=== PATIENT | female | born 1970 | race Caucasian/White ===

== ENCOUNTER → 2016-03-28 | Outpatient (CLI) | payer OTHER ==
[~2016-03-28] MED LIST: ABIL1TAB5 PO; ASPI81TA85 PO; ATEN100T PO; CLON0.5T PO; CRES40TA PO; FAMO40TA3 PO; INSUDET SC; INSUHUMDS SC; LEVO200T4 PO; LEVO75TA4 PO; LISI-538 PO; LYRI75CA PO; METF1000 PO; NORE0.353 PO; PAXI30TA11 PO; ROCE1INJ4 IV; TRIA37.53 PO; VITA500T53 PO
[2016-03-28 11:26] LABS: INR 0.85
[2016-03-28 11:53] LABS: ALBUMIN 3.3 GM/DL (3.2-5.2); ALBUMIN/GLOBULIN RATIO 0.73 (1.00-1.93); BILIRUBIN,TOTAL 0.3 MG/DL (0.2-1.0); CALCIUM LEVEL 10.1 MG/DL (8.5-10.1); CREATININE FOR GFR 1.4 MG/DL (0.55-1.02); FREE T4 0.93 NG/DL (0.76-1.46); GLOMERULAR FILTRATION RATE 43.5 (>58); POTASSIUM SERUM 4.4 MEQ/L (3.5-5.1); TOTAL PROTEIN 7.8 GM/DL (6.4-8.2)
--- NOTE | 2016-03-29 23:04 | ECGEPIP ---
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
== END ==
LOC: M LAB 10:21
PROVIDERS: ATTEND Nurse Practitioner Family
DX: S42.302P Unspecified fracture of shaft of humerus, left arm, subsequent encounter for fracture with malunion (principal)

== ENCOUNTER → 2016-03-28 | Outpatient (CLI) | payer OTHER ==
[2016-03-28 11:20] LABS: BASO # 0.1 K/mm3 (0.0-0.2); BASO % 0.7 % (0.0-1.0); EOS # 0.3 K/mm3 (0.0-0.50); EOS % 2.5 % (0.0-3.0); LARGE UNSTAINED CELL # 0.2 K/mm3 (0.0-0.4); LARGE UNSTAINED CELL % 1.2 % (0.0-4.0); LYMPH # 3.3 K/mm3 (1.5-4.5); LYMPH % 24.9 % (24.0-44.0); MEAN CORPUSCULAR HEMOGLOBIN 29.2 pg (27.0-33.0); MEAN CORPUSCULAR HGB CONC 33.4 g/dl (32.0-36.5); MEAN CORPUSCULAR VOLUME 87.5 fl (80.0-96.0); MONO # 0.4 K/mm3 (0.0-0.8); MONO % 3.4 % (0.0-5.0); NEUTROPHILS # 8.6 K/mm3 (1.8-7.7); NEUTROPHILS % 67.2 % (36.0-66.0); PLATELET COUNT, AUTOMATED 264 k/mm3 (150-450); RED CELL DISTRIBUTION WIDTH 14.3 % (11.5-14.5); WHITE BLOOD COUNT 12.7 K/mm3 (4.0-10.0)
[2016-03-28 11:30] LABS: CALCIUM LEVEL 10.2 MG/DL (8.5-10.1); CREATININE FOR GFR 1.41 MG/DL (0.55-1.02); GLOMERULAR FILTRATION RATE 43.1 (>58); POTASSIUM SERUM 4.4 MEQ/L (3.5-5.1)
[2016-03-28 11:54] LABS: ERYTHROCYTE SEDIMENTATION RATE 53 mm/hr (0-20)
== END ==
LOC: M LAB 10:29
PROVIDERS: ATTEND Internal Medicine Infectious Disease
DX: M86.122 Other acute osteomyelitis, left humerus (principal)

== ENCOUNTER 2016-04-14 02:31 | Emergency (ER) | payer MEDICAID, OTHER ==
[2016-04-14] MEDS ORDERED: DERMABOND TOPICAL SKIN ADHESIVE As Ordered ONE (05:16)
--- NOTE | 2016-04-14 06:18 | EDDOCDS ---
Physician Documentation [facility] Name: Shandra Gill Age: 45 yrs Sex: Female : 1970 Arrival Date: 04/14/2016 Time: 02:31 Bed 8 Private MD: Rebeca Byrne S Disposition: 04/14/16 05:31 Discharged to Home/Self Care. Impression: Encounter for other postprocedural aftercare. - Condition is Stable. - Medication Reconciliation, Local Pharmacy Hours form. - Follow up: Private Physician; When: As previously arranged. - Problem is new. - Symptoms have improved. Historical: - Allergies: No known drug Allergies; - Home Meds: 1. Abilify 10 mg Oral tab 1 tab once daily 2. aspirin 81 mg Oral chew 1 tab once daily 3. atenolol 100 mg Oral tab once daily 4. clonazepam 0.5 mg Oral tab 1 tab once a day 5. Crestor 40 mg Oral tab 1 tab once daily 6. famotidine 40 mg Oral tab 1 tab once daily 7. Humalog 100 unit/mL Sub-Q soln 35 unit three times a day 8. Klonopin 0.5 mg Oral tab 1 tab once a day 9. Levemir 100 unit/mL subcutaneous soln 135 unit daily 10. levothyroxine 75 mcg Oral cap 1 cap once daily 11. lisinopril 20 mg Oral tab 1 tab once daily 12. metformin 1,000 mg Oral tab 1 tab 2 times per day 13. Paxil 30 mg Oral tab 1 tab once daily 14. triamterene-hydrochlorothiazid 37.5-25 mg Oral tab 1 tab once daily - PMHx: Depression; Diabetes - IDDM: controlled; Hypertension; Hypothyroidism; GERD; - PSHx: Cholecystectomy; left arm; - Social history: Smoking status: Patient states former smoker of tobacco. No barriers to communication noted, The patient speaks fluent Citizen [place], Speaks appropriately for age, Preferred Language: Citizen [place]. - Family history: Not pertinent. - : The pt / caregiver states he / she is not on anticoagulants. Home medication list is obtained from the patient. - Exposure Risk Screening:: None identified. 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 5 in. (165.10 cm) (R); 02:49 Body Mass Index 40.77 (111.13 kg, 165.10 cm) ld5 MDM: 05:40 Financial registration complete. hs2 05:40 [facility] Payment Agreement was scanned into [employer] and attached to record. hs2 Signatures: Nuris Zurita RN RN lf1 Delfino Vaughan DO DO cs11 Annette Funes RN RN af2 Swati Barrera, Reg Reg hs2 The chart was reviewed and I authenticate all verbal orders and agree with the evaluation and treatment provided.Attachments: 05:40 [facility] Payment Agreement hs2 MTDD
--- NOTE | 2016-04-14 06:18 | EDDOCDS ---
Nurse's Notes [facility] Name: Shandra Gill Age: 45 yrs Sex: Female : 1970 Arrival Date: 04/14/2016 Time: 02:31 Bed 8 Private MD: Rebeca Byrne S Diagnosis: Encounter for other postprocedural aftercare Presentation: 04/14 02:45 Presenting complaint: Patient states: Pt reports that she has an exposed surgical site lf1 on her upper left arm. She has steel plates and screws placed on her left humerus March by Dr. An at [facility] in [place]. Pt reports that this is the third dressing change she has bleed through and the bleeding has soaked through her clothing and onto her bedding. Pt. states she has not contacted her surgeon. Adult Sepsis Screening: The patient does not have new or worsening altered mentation. Patient's respiratory rate is less than 22. Systolic blood pressure is greater than 100. Patient has a qSOFA score of 0- Negative Sepsis Screen. Suicide/Homicide risk assessment- the patient denies having any suicidal and/or homicidal ideations and does not present with any other emotional, behavioral or mental health complaints. Status: Patient is not a automobile service station manager or dependent. Transition of care: patient was not received from another setting of care. 02:45 Acuity: LINDSEY Level 3 lf1 02:45 Method Of Arrival: Walkin/Carried/Asstd lf1 02:55 Presenting complaint: Patient states: Pt reports that she has been seeing Dr. Perez in lf1 infectious disease for an unknown infection in the arm prior to surgery. Triage Assessment: 02:52 General: Appears in no apparent distress, comfortable, Behavior is cooperative. Pain: lf1 Location: left arm Pain currently is 1 out of 10 on a pain scale. HIV screening NA for this visit Offered previously. Neurological: Level of Consciousness is awake, alert. Cardiovascular: Chest pain is denied. Respiratory: Respiratory effort is even, unlabored. Derm: Dressing with bleeding noted. 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 Abilify 10 mg Oral tab 1 tab once daily 2. aspirin 81 mg Oral chew 1 tab once daily 3. atenolol 100 mg Oral tab once daily 4. clonazepam 0.5 mg Oral tab 1 tab once a day 5. Crestor 40 mg Oral tab 1 tab once daily 6. famotidine 40 mg Oral tab 1 tab once daily 7. Humalog 100 unit/mL Sub-Q soln 35 unit three times a day 8. Klonopin 0.5 mg Oral tab 1 tab once a day 9. Levemir 100 unit/mL subcutaneous soln 135 unit daily 10. levothyroxine 75 mcg Oral cap 1 cap once daily 11. lisinopril 20 mg Oral tab 1 tab once daily 12. metformin 1,000 mg Oral tab 1 tab 2 times per day 13. Paxil 30 mg Oral tab 1 tab once daily 14. triamterene-hydrochlorothiazid 37.5-25 mg Oral tab 1 tab once daily - PMHx: Depression; Diabetes - IDDM: controlled; Hypertension; Hypothyroidism; GERD; - PSHx: Cholecystectomy; left arm; - Social history: Smoking status: Patient states former smoker of tobacco. No barriers to communication noted, The patient speaks fluent Pashto, Speaks appropriately for age, Preferred Language: Pashto. - Family history: Not pertinent. - : The pt / caregiver states he / she is not on anticoagulants. Home medication list is obtained from the patient. - Exposure Risk Screening:: None identified. Screenin:15 Screening information is obtained from the patient. Fall risk: No risks identified. af2 Assistance ADL's: requires no assistance with activities of daily living. Abuse/DV Screen: The patient / caregiver reports he/she is: not in a situation that causes fear, pain or injury. Nutritional screening: No deficits noted. Advance Directives: There is no active DNR order. home support is adequate. Assessment: 05:30 General: Appears in no apparent distress, Behavior is cooperative. Neurological: Level af2 of Consciousness is awake, alert. Respiratory: Airway is patent Respiratory effort is even, unlabored. Derm: incision intact with serosanguinous drainage noted. Vital Signs: 02:49 BP 124 / 64; Pulse 77; Resp 16; Temp 97.6(O); Pulse Ox 96% on R/A; Weight 111.13 kg ld5 (R); Height 5 ft. 5 in. (165.10 cm) (R); 02:49 Body Mass Index 40.77 (111.13 kg, 165.10 cm) ld5 Vitals: 02:50 Log In Time: April 14, 2016 at 02:31. ld5 ED Course: 02:32 Patient visited by Aldo Longoria, Reg. pm4 02:32 Patient moved to Waiting pm4 02:33 Rebeca Byrne is Private Physician. pm4 02:48 Triage Initiated lf1 05:01 Annette Funes,RN is Primary Nurse. tm5 05:01 Patient moved to 8 tm5 05:05 Delfino Vaughan DO is Attending Physician. cs11 05:05 Patient visited by Delfino Vaughan DO. cs11 05:40 [facility] Payment Agreement was scanned into [address] and attached to record. hs2 06:16 The patient / caregiver is instructed regarding the plan of care and ED course. af2 06:16 No IV's were initiated during this patient's visit. No procedures done that require af2 assistance. Order Results: There are currently no results for this order. Outcome: 05:31 Discharge ordered by Provider. cs11 06:16 Discharge Assessment: Patient awake, alert and oriented x 3. No cognitive and/or af2 functional deficits noted. Patient verbalized understanding of disposition instructions. patient administered narcotics - no. The following High Risk Discharge criteria are identified: None. Discharged to home ambulatory. Condition: stable. Discharge instructions given to patient, Instructed on discharge instructions, follow up and referral plans. Demonstrated understanding of instructions, Pt was receptive of discharge instructions/ teaching. No special radiology studies were completed. Property :Personal belongings accompany Pt. 06:17 Patient left the ED. af2 Signatures: Nuris ZuritaRN RN lf1 Caryn CrawfordRN RN ld5 Delfino Vaughan DO DO cs11 Annette Funes,TK RN af2 Swati Barrera, Reg Reg hs2 Bailey Cheng RN RN tm5 Aldo Longoria, Reg Reg pm4 MTDD
--- NOTE | 2016-04-16 07:17 | EDDOCDS ---
Nurse's Notes [facility] Name: Shandra Gill Age: 45 yrs Sex: Female : 1970 Arrival Date: 04/14/2016 Time: 02:31 Bed 8 Private MD: Rebeca Byrne S Diagnosis: Encounter for other postprocedural aftercare Presentation: 04/14 02:45 Presenting complaint: Patient states: Pt reports that she has an exposed surgical site lf1 on her upper left arm. She has steel plates and screws placed on her left humerus March by Dr. An at [facility] in [place]. Pt reports that this is the third dressing change she has bleed through and the bleeding has soaked through her clothing and onto her bedding. Pt. states she has not contacted her surgeon. Adult Sepsis Screening: The patient does not have new or worsening altered mentation. Patient's respiratory rate is less than 22. Systolic blood pressure is greater than 100. Patient has a qSOFA score of 0- Negative Sepsis Screen. Suicide/Homicide risk assessment- the patient denies having any suicidal and/or homicidal ideations and does not present with any other emotional, behavioral or mental health complaints. Status: Patient is not a library services assistant or dependent. Transition of care: patient was not received from another setting of care. 02:45 Acuity: LINDSEY Level 3 lf1 02:45 Method Of Arrival: Walkin/Carried/Asstd lf1 02:55 Presenting complaint: Patient states: Pt reports that she has been seeing Dr. Perez in lf1 infectious disease for an unknown infection in the arm prior to surgery. Triage Assessment: 02:52 General: Appears in no apparent distress, comfortable, Behavior is cooperative. Pain: lf1 Location: left arm Pain currently is 1 out of 10 on a pain scale. HIV screening NA for this visit Offered previously. Neurological: Level of Consciousness is awake, alert. Cardiovascular: Chest pain is denied. Respiratory: Respiratory effort is even, unlabored. Derm: Dressing with bleeding noted. 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 Abilify 10 mg Oral tab 1 tab once daily 2. aspirin 81 mg Oral chew 1 tab once daily 3. atenolol 100 mg Oral tab once daily 4. clonazepam 0.5 mg Oral tab 1 tab once a day 5. Crestor 40 mg Oral tab 1 tab once daily 6. famotidine 40 mg Oral tab 1 tab once daily 7. Humalog 100 unit/mL Sub-Q soln 35 unit three times a day 8. Klonopin 0.5 mg Oral tab 1 tab once a day 9. Levemir 100 unit/mL subcutaneous soln 135 unit daily 10. levothyroxine 75 mcg Oral cap 1 cap once daily 11. lisinopril 20 mg Oral tab 1 tab once daily 12. metformin 1,000 mg Oral tab 1 tab 2 times per day 13. Paxil 30 mg Oral tab 1 tab once daily 14. triamterene-hydrochlorothiazid 37.5-25 mg Oral tab 1 tab once daily - PMHx: Depression; Diabetes - IDDM: controlled; Hypertension; Hypothyroidism; GERD; - PSHx: Cholecystectomy; left arm; - Social history: Smoking status: Patient states former smoker of tobacco. No barriers to communication noted, The patient speaks fluent Kinyarwanda, Speaks appropriately for age, Preferred Language: Kinyarwanda. - Family history: Not pertinent. - : The pt / caregiver states he / she is not on anticoagulants. Home medication list is obtained from the patient. - Exposure Risk Screening:: None identified. Screenin:15 Screening information is obtained from the patient. Fall risk: No risks identified. af2 Assistance ADL's: requires no assistance with activities of daily living. Abuse/DV Screen: The patient / caregiver reports he/she is: not in a situation that causes fear, pain or injury. Nutritional screening: No deficits noted. Advance Directives: There is no active DNR order. home support is adequate. Assessment: 05:30 General: Appears in no apparent distress, Behavior is cooperative. Neurological: Level af2 of Consciousness is awake, alert. Respiratory: Airway is patent Respiratory effort is even, unlabored. Derm: incision intact with serosanguinous drainage noted. Vital Signs: 02:49 BP 124 / 64; Pulse 77; Resp 16; Temp 97.6(O); Pulse Ox 96% on R/A; Weight 111.13 kg ld5 (R); Height 5 ft. 5 in. (165.10 cm) (R); 02:49 Body Mass Index 40.77 (111.13 kg, 165.10 cm) ld5 Vitals: 02:50 Log In Time: April 14, 2016 at 02:31. ld5 ED Course: 02:32 Patient visited by Aldo Longoria, Reg. pm4 02:32 Patient moved to Waiting pm4 02:33 Rebeca Byrne is Private Physician. pm4 02:48 Triage Initiated lf1 05:01 Annette Funes,RN is Primary Nurse. tm5 05:01 Patient moved to 8 tm5 05:05 Delfino Vaughan DO is Attending Physician. cs11 05:05 Patient visited by Delfino Vaughan DO. cs11 05:40 [facility] Payment Agreement was scanned into [employer] and attached to record. hs2 06:16 The patient / caregiver is instructed regarding the plan of care and ED course. af2 06:16 No IV's were initiated during this patient's visit. No procedures done that require af2 assistance. 14:31 T-Sheet-- Draft Copy was scanned into [employer] and attached to record. gb Order Results: There are currently no results for this order. Outcome: 05:31 Discharge ordered by Provider. cs11 06:16 Discharge Assessment: Patient awake, alert and oriented x 3. No cognitive and/or af2 functional deficits noted. Patient verbalized understanding of disposition instructions. patient administered narcotics - no. The following High Risk Discharge criteria are identified: None. Discharged to home ambulatory. Condition: stable. Discharge instructions given to patient, Instructed on discharge instructions, follow up and referral plans. Demonstrated understanding of instructions, Pt was receptive of discharge instructions/ teaching. No special radiology studies were completed. Property :Personal belongings accompany Pt. 06:17 Patient left the ED. af2 Signatures: Jania Carballo, Reg Reg gb Nuris ZuritaRN RN lf1 Caryn CrawfordRN RN ld5 Delfino Vaughan DO DO cs11 Annette Funes,RN RN af2 Swati Barrera, Reg Reg hs2 Bailey Cheng RN RN tm5 Aldo Longoria, Reg Reg pm4 Chart Complete MTDD
--- NOTE | 2016-04-16 07:17 | EDDOCDS ---
Physician Documentation [facility] Name: Shandra Gill Age: 45 yrs Sex: Female : 1970 Arrival Date: 04/14/2016 Time: 02:31 Bed 8 Private MD: Rebeca Byrne S Disposition: 04/14/16 05:31 Discharged to Home/Self Care. Impression: Encounter for other postprocedural aftercare. - Condition is Stable. - Medication Reconciliation, Local Pharmacy Hours form. - Follow up: Private Physician; When: As previously arranged. - Problem is new. - Symptoms have improved. Historical: - Allergies: No known drug Allergies; - Home Meds: 1. Abilify 10 mg Oral tab 1 tab once daily 2. aspirin 81 mg Oral chew 1 tab once daily 3. atenolol 100 mg Oral tab once daily 4. clonazepam 0.5 mg Oral tab 1 tab once a day 5. Crestor 40 mg Oral tab 1 tab once daily 6. famotidine 40 mg Oral tab 1 tab once daily 7. Humalog 100 unit/mL Sub-Q soln 35 unit three times a day 8. Klonopin 0.5 mg Oral tab 1 tab once a day 9. Levemir 100 unit/mL subcutaneous soln 135 unit daily 10. levothyroxine 75 mcg Oral cap 1 cap once daily 11. lisinopril 20 mg Oral tab 1 tab once daily 12. metformin 1,000 mg Oral tab 1 tab 2 times per day 13. Paxil 30 mg Oral tab 1 tab once daily 14. triamterene-hydrochlorothiazid 37.5-25 mg Oral tab 1 tab once daily - PMHx: Depression; Diabetes - IDDM: controlled; Hypertension; Hypothyroidism; GERD; - PSHx: Cholecystectomy; left arm; - Social history: Smoking status: Patient states former smoker of tobacco. No barriers to communication noted, The patient speaks fluent [place], Speaks appropriately for age, Preferred Language: Citizen [place]. - Family history: Not pertinent. - : The pt / caregiver states he / she is not on anticoagulants. Home medication list is obtained from the patient. - Exposure Risk Screening:: None identified. DISH STACKER: 04/14 02:50 LMP 04/09/2016 ld5 Vital Signs: 02:49 BP 124 / 64; Pulse 77; Resp 16; Temp 97.6(O); Pulse Ox 96% on R/A; Weight 111.13 kg / ld5 245 lbs (R); Height 5 ft. 5 in. (165.10 cm) (R); 02:49 Body Mass Index 40.77 (111.13 kg, 165.10 cm) ld5 MDM: 05:40 Financial registration complete. hs2 05:40 [facility] Payment Agreement was scanned into [employer] and attached to record. hs2 14:31 T-Sheet-- Draft Copy was scanned into [employer] and attached to record. gb Signatures: Jania Carballo, Reg Reg gb Nuris Zurita,RN RN lf1 Delfino Vaughan, DO cs11 Annette Funes RN RN af2 Swati Barrera, Reg Reg hs2 The chart was reviewed and I authenticate all verbal orders and agree with the evaluation and treatment provided.Attachments: 05:40 [facility] Payment Agreement hs2 14:31 T-Sheet-- Draft Copy gb Chart Complete MTDD
--- NOTE | 2016-04-16 07:17 | EDDOCDS ---
Physician Documentation [facility] Name: Shandra Gill Age: 45 yrs Sex: Female : 1970 Arrival Date: 04/14/2016 Time: 02:31 Bed 8 Private MD: Rebeca Byrne S Disposition: 04/14/16 05:31 Discharged to Home/Self Care. Impression: Encounter for other postprocedural aftercare. - Condition is Stable. - Medication Reconciliation, Local Pharmacy Hours form. - Follow up: Private Physician; When: As previously arranged. - Problem is new. - Symptoms have improved. Historical: - Allergies: No known drug Allergies; - Home Meds: 1. Abilify 10 mg Oral tab 1 tab once daily 2. aspirin 81 mg Oral chew 1 tab once daily 3. atenolol 100 mg Oral tab once daily 4. clonazepam 0.5 mg Oral tab 1 tab once a day 5. Crestor 40 mg Oral tab 1 tab once daily 6. famotidine 40 mg Oral tab 1 tab once daily 7. Humalog 100 unit/mL Sub-Q soln 35 unit three times a day 8. Klonopin 0.5 mg Oral tab 1 tab once a day 9. Levemir 100 unit/mL subcutaneous soln 135 unit daily 10. levothyroxine 75 mcg Oral cap 1 cap once daily 11. lisinopril 20 mg Oral tab 1 tab once daily 12. metformin 1,000 mg Oral tab 1 tab 2 times per day 13. Paxil 30 mg Oral tab 1 tab once daily 14. triamterene-hydrochlorothiazid 37.5-25 mg Oral tab 1 tab once daily - PMHx: Depression; Diabetes - IDDM: controlled; Hypertension; Hypothyroidism; GERD; - PSHx: Cholecystectomy; left arm; - Social history: Smoking status: Patient states former smoker of tobacco. No barriers to communication noted, The patient speaks fluent Armenian, Speaks appropriately for age, Preferred Language: Armenian. - Family history: Not pertinent. - : The pt / caregiver states he / she is not on anticoagulants. Home medication list is obtained from the patient. - Exposure Risk Screening:: None identified. AUTOMOTIVE SERVICE CONSULTANT: 04/14 02:50 LMP 04/09/2016 ld5 Vital Signs: 02:49 BP 124 / 64; Pulse 77; Resp 16; Temp 97.6(O); Pulse Ox 96% on R/A; Weight 111.13 kg / ld5 245 lbs (R); Height 5 ft. 5 in. (165.10 cm) (R); 02:49 Body Mass Index 40.77 (111.13 kg, 165.10 cm) ld5 MDM: 05:40 Financial registration complete. hs2 05:40 [facility] Payment Agreement was scanned into [employer] and attached to record. hs2 14:31 T-Sheet-- Draft Copy was scanned into [employer] and attached to record. gb Signatures: Jania Carballo, Reg Reg gb Nuris Zurita,RN RN lf1 Delfino Vaughan, DO cs11 Annette Funes RN RN af2 Swati Barrera, Reg Reg hs2 The chart was reviewed and I authenticate all verbal orders and agree with the evaluation and treatment provided.Attachments: 05:40 [facility] Payment Agreement hs2 14:31 T-Sheet-- Draft Copy gb Chart Complete MTDD
== END 2016-04-14 06:17 | disposition home or self-care (01) ==
LOC: M ED 02:31
DX: M96.830 Postprocedural hemorrhage of a musculoskeletal structure following a musculoskeletal system procedure (principal); F32.9 Major depressive disorder, single episode, unspecified; E10.9 Type 1 diabetes mellitus without complications; I10 Essential (primary) hypertension; E03.9 Hypothyroidism, unspecified; K21.9 Gastro-esophageal reflux disease without esophagitis; Z87.891 Personal history of nicotine dependence; Z79.82 Long term (current) use of aspirin; Z79.4 Long term (current) use of insulin; Z79.899 Other long term (current) drug therapy

== ENCOUNTER 2016-04-14 20:03 | Emergency (ER) | payer MEDICAID ==
--- NOTE | 2016-04-14 21:18 | EDDOCDS ---
Nurse's Notes [facility] Name: Shandra Gill Age: 45 yrs Sex: Female : 1970 Arrival Date: 04/14/2016 Time: 20:03 Bed TR8 Private MD: Rebeca Byrne FNP Diagnosis: Intraoperative and postprocedural complications of skin and subcutaneous tissue-post operative bleeding Presentation: 04/14 20:11 Presenting complaint: Patient states: post-op bleeding since discharged from hospital x kc3 6 days ago from left arm surgery. Pt reports seen here last night for dressing change and since discharge bleeding has increased to soaking through dressing every hour. Pt reports Dr. Rodger Rowland was surgeon. Adult Sepsis Screening: The patient does not have new or worsening altered mentation. Patient's respiratory rate is less than 22. Systolic blood pressure is greater than 100. Patient has a qSOFA score of 0- Negative Sepsis Screen. Suicide/Homicide risk assessment- the patient denies having any suicidal and/or homicidal ideations and does not present with any other emotional, behavioral or mental health complaints. Status: Patient is not a customer service receptionist or dependent. Transition of care: patient was not received from another setting of care. 20:11 Acuity: LINDSEY Level 3 kc3 20:11 Method Of Arrival: Walkin/Carried/Asstd kc3 Triage Assessment: 20:15 General: Appears in no apparent distress, comfortable, Behavior is appropriate for age, kc3 cooperative. Pain: Location: left arm. HIV screening NA for this visit Offered previously. Neurological: Level of Consciousness is awake, alert, obeys commands, Oriented to person, place, time. Respiratory: Respiratory effort is even, unlabored. Derm: Skin is pink, warm & dry. Dressing noted to left arm with sling. Pt reports dressing soaked through. STABLE HELPER: 20:16 LMP 04/09/2016 kc3 Historical: - Allergies: no known allergies; - Home Meds: 1. Abilify 10 mg Oral tab 1 tab once daily 2. aspirin 81 mg Oral chew 1 tab once daily 3. atenolol 100 mg Oral tab once daily 4. clonazepam 0.5 mg Oral tab 1 tab once a day 5. Crestor 40 mg Oral tab 1 tab once daily 6. famotidine 40 mg Oral tab 1 tab once daily 7. Humalog 100 unit/mL Sub-Q soln 35 unit three times a day 8. Hydrochlorothiazide Oral Unknown once daily 9. Klonopin 0.5 mg Oral tab 1 tab once a day 10. Levemir 100 unit/mL subcutaneous soln 135 unit daily 11. levothyroxine 75 mcg Oral cap 1 cap once daily 12. levothyroxine 200 mcg Oral tab 1 tab once daily 13. lisinopril 20 mg Oral tab 1 tab once daily 14. metformin 1,000 mg Oral tab 1 tab 2 times per day 15. Paxil 30 mg Oral tab 1 tab once daily 16. pregabalin 75 mg Oral cap 1 cap daily 17. triamterene-hydrochlorothiazid 37.5-25 mg Oral tab 1 tab once daily - PMHx: Depression; Diabetes - IDDM: controlled; GERD; Hypertension; Hypothyroidism; - PSHx: Cholecystectomy; left arm surgery; - Social history: Smoking status: Patient states former smoker of tobacco. No barriers to communication noted, The patient speaks fluent Citizen [place], Speaks appropriately for age. - Family history: Not pertinent. - : The pt / caregiver states he / she is not on anticoagulants. Home medication list is obtained from [employer] import data. - Exposure Risk Screening:: None identified. Screenin:09 Screening information is obtained from the patient. Fall risk: No risks identified. ttb Assistance ADL's: requires no assistance with activities of daily living. Abuse/DV Screen: The patient / caregiver reports he/she is: not in a situation that causes fear, pain or injury. Nutritional screening: No deficits noted. Advance Directives: Currently, there is no health care proxy. home support is adequate. Assessment: 21:09 General: Appears in no apparent distress, well nourished, well groomed, Behavior is ttb appropriate for age, cooperative, pleasant. Neurological: Level of Consciousness is awake, alert. Respiratory: No deficits noted. Derm: Skin is normal, large surgical incision noted to back of left arm. Small amt of bleeding noted to upper incision. Redressed per orders. 21:16 General: cab called per pt request. . ttb Vital Signs: 20:05 BP 114 / 63; Pulse 65; Resp 18 S; Temp 97.9(O); Pulse Ox 96% on R/A; Weight 108.86 kg gr2 (M); Height 5 ft. 5 in. (165.10 cm); Pain 3/10; 21:10 BP 110 / 65 RA Sitting (auto/reg); Pulse 59 MON; Resp 18 S; Temp 98.4(TE); Pulse Ox 95% cln on R/A; Pain 2/10; 20:05 Body Mass Index 39.94 (108.86 kg, 165.10 cm) gr2 Vitals: 20:05 Log In Time: April 14, 2016 at 20:05. gr2 ED Course: 20:04 Patient visited by Woody Morris. gr2 20:04 Rebeca Byrne is Private Physician. gr2 20:04 Patient moved to Waiting gr2 20:07 Patient visited by Woody Morris. gr2 20:07 Patient moved to Pre RCE gr2 20:14 Triage Initiated kc3 20:17 Patient moved to Triage 1 kc3 20:54 Marty Cisneros FNP [facility]. ke 20:54 Patient visited by Marty Cisneros FNP. ke 20:54 Patient visited by Marty Cisneros FNP. ke 21:09 The patient / caregiver is instructed regarding the plan of care and ED course. Patient ttb has correct armband on for positive identification. 21:09 No IV's were initiated during this patient's visit. No procedures done that require ttb assistance. Wound care to surgical incision , dressed and anastasiya wrapped per DATABASE MODELER request. 21:11 Patient visited by Maria Elena Lorenz PCA. cln 21:13 Patient moved to TR8 cz Order Results: There are currently no results for this order. Outcome: 21:06 Discharge ordered by Provider. ke 21:09 Discharge Assessment: Patient awake, alert and oriented x 3. No cognitive and/or ttb functional deficits noted. Patient verbalized understanding of disposition instructions. Patient awake and alert. patient administered narcotics - no. The following High Risk Discharge criteria are identified: None. Discharged to home ambulatory. Condition: good Condition: stable Condition: improved. Discharge instructions given to patient, Instructed on discharge instructions, follow up and referral plans. medication usage, wound care Demonstrated understanding of instructions, medications, Pt was receptive of discharge instructions/ teaching. No special radiology studies were completed. Property :Personal belongings accompany Pt. 21:17 Patient left the ED. ttb Signatures: Carlin Conway, RN RN cz Marty Cisneros, DAIRY FROZEN MANAGER DAIRY FROZEN MANAGER Esther Hong, RN RN ttb Woody Morris gr2 Teresa Szymanski,RN RN kc3 Kelechi, Maria Elena, THAI SUGAR MILL WORKER cln MTDD
--- NOTE | 2016-04-14 21:18 | EDDOCDS ---
Physician Documentation [facility] Name: Shandra Gill Age: 45 yrs Sex: Female : 1970 Arrival Date: 04/14/2016 Time: 20:03 Bed TR8 Private MD: Rebeca Byrne FNP Disposition: 04/14/16 21:06 Discharged to Home/Self Care. Impression: Intraoperative and postprocedural complications of skin and subcutaneous tissue - post operative bleeding. - Condition is Stable. - Discharge Instructions: Sutured Wound Care. - Medication Reconciliation, Local Pharmacy Hours form. - Follow up: Private Physician; When: 2 - 3 days; Reason: Recheck today's complaints, Continuance of care. - Problem is an ongoing problem. - Symptoms are unchanged. Historical: - Allergies: no known allergies; - Home Meds: 1. Abilify 10 mg Oral tab 1 tab once daily 2. aspirin 81 mg Oral chew 1 tab once daily 3. atenolol 100 mg Oral tab once daily 4. clonazepam 0.5 mg Oral tab 1 tab once a day 5. Crestor 40 mg Oral tab 1 tab once daily 6. famotidine 40 mg Oral tab 1 tab once daily 7. Humalog 100 unit/mL Sub-Q soln 35 unit three times a day 8. Hydrochlorothiazide Oral Unknown once daily 9. Klonopin 0.5 mg Oral tab 1 tab once a day 10. Levemir 100 unit/mL subcutaneous soln 135 unit daily 11. levothyroxine 75 mcg Oral cap 1 cap once daily 12. levothyroxine 200 mcg Oral tab 1 tab once daily 13. lisinopril 20 mg Oral tab 1 tab once daily 14. metformin 1,000 mg Oral tab 1 tab 2 times per day 15. Paxil 30 mg Oral tab 1 tab once daily 16. pregabalin 75 mg Oral cap 1 cap daily 17. triamterene-hydrochlorothiazid 37.5-25 mg Oral tab 1 tab once daily - PMHx: Depression; Diabetes - IDDM: controlled; GERD; Hypertension; Hypothyroidism; - PSHx: Cholecystectomy; left arm surgery; - Social history: Smoking status: Patient states former smoker of tobacco. No barriers to communication noted, The patient speaks fluent Telugu, Speaks appropriately for age. - Family history: Not pertinent. - : The pt / caregiver states he / she is not on anticoagulants. Home medication list is obtained from [employer] import data. - Exposure Risk Screening:: None identified. 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 5 in. (165.10 cm); Pain 3/10; 21:10 BP 110 / 65 RA Sitting (auto/reg); Pulse 59 MON; Resp 18 S; Temp 98.4(TE); Pulse Ox 95% cln on R/A; Pain 2/10; 20:05 Body Mass Index 39.94 (108.86 kg, 165.10 cm) gr2 MDM: 21:16 Financial registration complete. tyrell Signatures: Marty Cisneros, Esther Mckeon RN RN ttb Teresa Szymanski RN RN kc3 Yvonne Oviedo DANISH
--- NOTE | 2016-04-16 22:17 | EDDOCDS ---
Nurse's Notes [facility] Name: Shandra Gill Age: 45 yrs Sex: Female : 1970 Arrival Date: 04/14/2016 Time: 20:03 Bed TR8 Private MD: Rebeca Byrne FNP Diagnosis: Intraoperative and postprocedural complications of skin and subcutaneous tissue-post operative bleeding Presentation: 04/14 20:11 Presenting complaint: Patient states: post-op bleeding since discharged from hospital x kc3 6 days ago from left arm surgery. Pt reports seen here last night for dressing change and since discharge bleeding has increased to soaking through dressing every hour. Pt reports Dr. Rodger Rowland was surgeon. Adult Sepsis Screening: The patient does not have new or worsening altered mentation. Patient's respiratory rate is less than 22. Systolic blood pressure is greater than 100. Patient has a qSOFA score of 0- Negative Sepsis Screen. Suicide/Homicide risk assessment- the patient denies having any suicidal and/or homicidal ideations and does not present with any other emotional, behavioral or mental health complaints. Status: Patient is not a manager customer service or dependent. Transition of care: patient was not received from another setting of care. 20:11 Acuity: LINDSEY Level 3 kc3 20:11 Method Of Arrival: Walkin/Carried/Asstd kc3 Triage Assessment: 20:15 General: Appears in no apparent distress, comfortable, Behavior is appropriate for age, kc3 cooperative. Pain: Location: left arm. HIV screening NA for this visit Offered previously. Neurological: Level of Consciousness is awake, alert, obeys commands, Oriented to person, place, time. Respiratory: Respiratory effort is even, unlabored. Derm: Skin is pink, warm & dry. Dressing noted to left arm with sling. Pt reports dressing soaked through. 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 Abilify 10 mg Oral tab 1 tab once daily 2. aspirin 81 mg Oral chew 1 tab once daily 3. atenolol 100 mg Oral tab once daily 4. clonazepam 0.5 mg Oral tab 1 tab once a day 5. Crestor 40 mg Oral tab 1 tab once daily 6. famotidine 40 mg Oral tab 1 tab once daily 7. Humalog 100 unit/mL Sub-Q soln 35 unit three times a day 8. Hydrochlorothiazide Oral Unknown once daily 9. Klonopin 0.5 mg Oral tab 1 tab once a day 10. Levemir 100 unit/mL subcutaneous soln 135 unit daily 11. levothyroxine 75 mcg Oral cap 1 cap once daily 12. levothyroxine 200 mcg Oral tab 1 tab once daily 13. lisinopril 20 mg Oral tab 1 tab once daily 14. metformin 1,000 mg Oral tab 1 tab 2 times per day 15. Paxil 30 mg Oral tab 1 tab once daily 16. pregabalin 75 mg Oral cap 1 cap daily 17. triamterene-hydrochlorothiazid 37.5-25 mg Oral tab 1 tab once daily - PMHx: Depression; Diabetes - IDDM: controlled; GERD; Hypertension; Hypothyroidism; - PSHx: Cholecystectomy; left arm surgery; - Social history: Smoking status: Patient states former smoker of tobacco. No barriers to communication noted, The patient speaks fluent Czech, Speaks appropriately for age. - Family history: Not pertinent. - : The pt / caregiver states he / she is not on anticoagulants. Home medication list is obtained from [employer] import data. - Exposure Risk Screening:: None identified. Screenin:09 Screening information is obtained from the patient. Fall risk: No risks identified. ttb Assistance ADL's: requires no assistance with activities of daily living. Abuse/DV Screen: The patient / caregiver reports he/she is: not in a situation that causes fear, pain or injury. Nutritional screening: No deficits noted. Advance Directives: Currently, there is no health care proxy. home support is adequate. Assessment: 21:09 General: Appears in no apparent distress, well nourished, well groomed, Behavior is ttb appropriate for age, cooperative, pleasant. Neurological: Level of Consciousness is awake, alert. Respiratory: No deficits noted. Derm: Skin is normal, large surgical incision noted to back of left arm. Small amt of bleeding noted to upper incision. Redressed per orders. 21:16 General: cab called per pt request. . ttb Vital Signs: 20:05 BP 114 / 63; Pulse 65; Resp 18 S; Temp 97.9(O); Pulse Ox 96% on R/A; Weight 108.86 kg gr2 (M); Height 5 ft. 5 in. (165.10 cm); Pain 3/10; 21:10 BP 110 / 65 RA Sitting (auto/reg); Pulse 59 MON; Resp 18 S; Temp 98.4(TE); Pulse Ox 95% cln on R/A; Pain 2/10; 20:05 Body Mass Index 39.94 (108.86 kg, 165.10 cm) gr2 Vitals: 20:05 Log In Time: April 14, 2016 at 20:05. gr2 ED Course: 20:04 Patient visited by Woody Morris. gr2 20:04 Rebeca Byrne is Private Physician. gr2 20:04 Patient moved to Waiting gr2 20:07 Patient visited by Woody Morris. gr2 20:07 Patient moved to Pre RCE gr2 20:14 Triage Initiated kc3 20:17 Patient moved to Triage 1 kc3 20:54 Marty Cisneros FNP [facility]. ke 20:54 Patient visited by Marty Cisneros FNP. ke 20:54 Patient visited by Marty Cisneros FNP. ke 21:09 The patient / caregiver is instructed regarding the plan of care and ED course. Patient ttb has correct armband on for positive identification. 21:09 No IV's were initiated during this patient's visit. No procedures done that require ttb assistance. Wound care to surgical incision , dressed and anastasiya wrapped per MANAGED SECURITY SALES CONSULTANT request. 21:11 Patient visited by Maria Elena Lorenz PCA. cln 21:13 Patient moved to 8 cz 22:02 [facility] Payment Agreement was scanned into [employer] and attached to record. gjb 04/15 10:10 T-Sheet-- Draft Copy was scanned into [employer] and attached to record. gb Order Results: There are currently no results for this order. Outcome: 04/14 21:06 Discharge ordered by Provider. ke 21:09 Discharge Assessment: Patient awake, alert and oriented x 3. No cognitive and/or ttb functional deficits noted. Patient verbalized understanding of disposition instructions. Patient awake and alert. patient administered narcotics - no. The following High Risk Discharge criteria are identified: None. Discharged to home ambulatory. Condition: good Condition: stable Condition: improved. Discharge instructions given to patient, Instructed on discharge instructions, follow up and referral plans. medication usage, wound care Demonstrated understanding of instructions, medications, Pt was receptive of discharge instructions/ teaching. No special radiology studies were completed. Property :Personal belongings accompany Pt. 21:17 Patient left the ED. ttb Signatures: Carlin Conway, RN RN cz Jania Carballo, Reg Reg gb Marty Cisneros, HIDE COOKING OPERATOR HIDE COOKING OPERATOR Esther Hong RN RN ttb Woody Morris gr2 Teresa Szymanski RN RN kc3 Yvonne Oviedo b Maria Elena Lorenz, THAI BUTT SAWYER cln Chart Complete MTDD
--- NOTE | 2016-04-16 22:17 | EDDOCDS ---
Physician Documentation [facility] Name: Shandra Gill Age: 45 yrs Sex: Female : 1970 Arrival Date: 04/14/2016 Time: 20:03 Bed TR8 Private MD: Rebeca Byrne FNP Disposition: 04/14/16 21:06 Discharged to Home/Self Care. Impression: Intraoperative and postprocedural complications of skin and subcutaneous tissue - post operative bleeding. - Condition is Stable. - Discharge Instructions: Sutured Wound Care. - Medication Reconciliation, Local Pharmacy Hours form. - Follow up: Private Physician; When: 2 - 3 days; Reason: Recheck today's complaints, Continuance of care. - Problem is an ongoing problem. - Symptoms are unchanged. Historical: - Allergies: no known allergies; - Home Meds: 1. Abilify 10 mg Oral tab 1 tab once daily 2. aspirin 81 mg Oral chew 1 tab once daily 3. atenolol 100 mg Oral tab once daily 4. clonazepam 0.5 mg Oral tab 1 tab once a day 5. Crestor 40 mg Oral tab 1 tab once daily 6. famotidine 40 mg Oral tab 1 tab once daily 7. Humalog 100 unit/mL Sub-Q soln 35 unit three times a day 8. Hydrochlorothiazide Oral Unknown once daily 9. Klonopin 0.5 mg Oral tab 1 tab once a day 10. Levemir 100 unit/mL subcutaneous soln 135 unit daily 11. levothyroxine 75 mcg Oral cap 1 cap once daily 12. levothyroxine 200 mcg Oral tab 1 tab once daily 13. lisinopril 20 mg Oral tab 1 tab once daily 14. metformin 1,000 mg Oral tab 1 tab 2 times per day 15. Paxil 30 mg Oral tab 1 tab once daily 16. pregabalin 75 mg Oral cap 1 cap daily 17. triamterene-hydrochlorothiazid 37.5-25 mg Oral tab 1 tab once daily - PMHx: Depression; Diabetes - IDDM: controlled; GERD; Hypertension; Hypothyroidism; - PSHx: Cholecystectomy; left arm surgery; - Social history: Smoking status: Patient states former smoker of tobacco. No barriers to communication noted, The patient speaks fluent Lao, Speaks appropriately for age. - Family history: Not pertinent. - : The pt / caregiver states he / she is not on anticoagulants. Home medication list is obtained from [employer] import data. - Exposure Risk Screening:: None identified. PATIENT ACCESS SPECIALIST: 04/14 20:16 LMP 04/09/2016 kc3 Vital Signs: 20:05 BP 114 / 63; Pulse 65; Resp 18 S; Temp 97.9(O); Pulse Ox 96% on R/A; Weight 108.86 kg / gr2 240 lbs (M); Height 5 ft. 5 in. (165.10 cm); Pain 3/10; 21:10 BP 110 / 65 RA Sitting (auto/reg); Pulse 59 MON; Resp 18 S; Temp 98.4(TE); Pulse Ox 95% cln on R/A; Pain 2/10; 20:05 Body Mass Index 39.94 (108.86 kg, 165.10 cm) gr2 MDM: 21:16 Financial registration complete. [facility] : [facility] Payment Agreement was scanned into [employer] and attached to record. [facility] 04/15 10:10 T-Sheet-- Draft Copy was scanned into [employer] and attached to record. gb Signatures: Jania Carballo, Reg Reg gb Marty Cisneros, PE ELECTRICAL ENGINEER Esther Velazco RN RN keshavb Teresa Szymanski RN RN kc3 Yvonne Oviedo The chart was reviewed and I authenticate all verbal orders and agree with the evaluation and treatment provided.Attachments: 04/14 22:02 [facility] Payment Agreement [facility] 04/15 10:10 T-Sheet-- Draft Copy gb Chart Complete MTDD
--- NOTE | 2016-04-16 22:17 | EDDOCDS ---
Physician Documentation [facility] Name: Shandra Gill Age: 45 yrs Sex: Female : 1970 Arrival Date: 04/14/2016 Time: 20:03 Bed TR8 Private MD: Rebeca Byrne FNP Disposition: 04/14/16 21:06 Discharged to Home/Self Care. Impression: Intraoperative and postprocedural complications of skin and subcutaneous tissue - post operative bleeding. - Condition is Stable. - Discharge Instructions: Sutured Wound Care. - Medication Reconciliation, Local Pharmacy Hours form. - Follow up: Private Physician; When: 2 - 3 days; Reason: Recheck today's complaints, Continuance of care. - Problem is an ongoing problem. - Symptoms are unchanged. Historical: - Allergies: no known allergies; - Home Meds: 1. Abilify 10 mg Oral tab 1 tab once daily 2. aspirin 81 mg Oral chew 1 tab once daily 3. atenolol 100 mg Oral tab once daily 4. clonazepam 0.5 mg Oral tab 1 tab once a day 5. Crestor 40 mg Oral tab 1 tab once daily 6. famotidine 40 mg Oral tab 1 tab once daily 7. Humalog 100 unit/mL Sub-Q soln 35 unit three times a day 8. Hydrochlorothiazide Oral Unknown once daily 9. Klonopin 0.5 mg Oral tab 1 tab once a day 10. Levemir 100 unit/mL subcutaneous soln 135 unit daily 11. levothyroxine 75 mcg Oral cap 1 cap once daily 12. levothyroxine 200 mcg Oral tab 1 tab once daily 13. lisinopril 20 mg Oral tab 1 tab once daily 14. metformin 1,000 mg Oral tab 1 tab 2 times per day 15. Paxil 30 mg Oral tab 1 tab once daily 16. pregabalin 75 mg Oral cap 1 cap daily 17. triamterene-hydrochlorothiazid 37.5-25 mg Oral tab 1 tab once daily - PMHx: Depression; Diabetes - IDDM: controlled; GERD; Hypertension; Hypothyroidism; - PSHx: Cholecystectomy; left arm surgery; - Social history: Smoking status: Patient states former smoker of tobacco. No barriers to communication noted, The patient speaks fluent Khmer, Speaks appropriately for age. - Family history: Not pertinent. - : The pt / caregiver states he / she is not on anticoagulants. Home medication list is obtained from [employer] import data. - Exposure Risk Screening:: None identified. SUPERVISOR DIE CASTING: 04/14 20:16 LMP 04/09/2016 [id number] Vital Signs: 20:05 BP 114 / 63; Pulse 65; Resp 18 S; Temp 97.9(O); Pulse Ox 96% on R/A; Weight 108.86 kg / gr2 240 lbs (M); Height 5 ft. 5 in. (165.10 cm); Pain 3/10; 21:10 BP 110 / 65 RA Sitting (auto/reg); Pulse 59 MON; Resp 18 S; Temp 98.4(TE); Pulse Ox 95% cln on R/A; Pain 2/10; 20:05 Body Mass Index 39.94 (108.86 kg, 165.10 cm) gr2 MDM: 21:16 Financial registration complete. [facility] : [facility] Payment Agreement was scanned into Storehouse and attached to record. [facility] 04/15 10:10 T-Sheet-- Draft Copy was scanned into Storehouse and attached to record. gb Signatures: Jania Carballo, Reg Reg gb Marty Cisneros, ENGINEER THIRD ASSISTANT Esther Velazco RN RN keshavb Teresa Szymanski RN RN [id number] Yvonne Oviedo The chart was reviewed and I authenticate all verbal orders and agree with the evaluation and treatment provided.Attachments: 04/14 22:02 [facility] Payment Agreement [facility] 04/15 10:10 T-Sheet-- Draft Copy gb Chart Complete MTDD
== END 2016-04-14 21:17 | disposition home or self-care (01) ==
LOC: M ED 20:03
DX: M96.830 Postprocedural hemorrhage of a musculoskeletal structure following a musculoskeletal system procedure (principal); F32.9 Major depressive disorder, single episode, unspecified; E10.9 Type 1 diabetes mellitus without complications; K21.9 Gastro-esophageal reflux disease without esophagitis; I10 Essential (primary) hypertension; E03.9 Hypothyroidism, unspecified; Z87.891 Personal history of nicotine dependence; Z79.82 Long term (current) use of aspirin; Z79.4 Long term (current) use of insulin; Z79.899 Other long term (current) drug therapy

== ENCOUNTER 2016-06-21 13:55 | Outpatient (RCR) | payer OTHER, MEDICAID | END 2016-06-25 | LOC: M PT 13:55 | PROVIDERS: ATTEND Physician Assistant Surgical | DX: Z51.89 Encounter for other specified aftercare (principal); S42.332K Displaced oblique fracture of shaft of humerus, left arm, subsequent encounter for fracture with nonunion ==

== ENCOUNTER 2016-07-25 14:20 | Outpatient (RCR) | payer MEDICAID, OTHER | END 2016-07-26 | disposition home or self-care (01) | LOC: M PT 14:20 | PROVIDERS: ATTEND Physician Assistant Surgical | DX: Z51.89 Encounter for other specified aftercare (principal); Z47.89 Encounter for other orthopedic aftercare ==

== ENCOUNTER → 2017-01-16 | Outpatient (REF) | payer OTHER ==
[~2017-01-16] MED LIST changes: +ABIL10TA9 PO; -ABIL1TAB5 PO; -METF1000 PO; +METF10004 PO
[2017-01-16 13:50] LABS: ALBUMIN 3.2 GM/DL (3.2-5.2); ALBUMIN/GLOBULIN RATIO 0.78 (1.00-1.93); BILIRUBIN,TOTAL 0.3 MG/DL (0.2-1.0); CALCIUM LEVEL 10.3 MG/DL (8.5-10.1); CREATININE FOR GFR 1.34 MG/DL (0.55-1.02); GLOMERULAR FILTRATION RATE 45.5 (>58); POTASSIUM SERUM 4.7 MEQ/L (3.5-5.1); TOTAL PROTEIN 7.3 GM/DL (6.4-8.2)
== END ==
LOC: M LAB REF 12:39
PROVIDERS: ATTEND Nurse Practitioner Adult Health
DX: E03.9 Hypothyroidism, unspecified (principal); E11.9 Type 2 diabetes mellitus without complications

== ENCOUNTER → 2017-03-09 | Outpatient (CLI) | payer MEDICAID | LOC: M PAIN 15:15 | DX: G89.29 Other chronic pain (principal); M79.602 Pain in left arm; G56.92 Unspecified mononeuropathy of left upper limb; F41.9 Anxiety disorder, unspecified; F31.9 Bipolar disorder, unspecified; I10 Essential (primary) hypertension; E78.5 Hyperlipidemia, unspecified; E03.9 Hypothyroidism, unspecified; E11.9 Type 2 diabetes mellitus without complications; Z79.4 Long term (current) use of insulin; Z79.82 Long term (current) use of aspirin; Z79.899 Other long term (current) drug therapy | CPT/HCPCS: G0463 ==

== ENCOUNTER → 2017-04-16 | Outpatient (REF) | payer OTHER ==
[2017-04-16 17:48] LABS: APPEARANCE, URINE TURBID (CLEAR); BACTERIA, URINE AUTO 3+ (NEGATIVE); BILIRUBIN, URINE AUTO NEGATIVE (NEGATIVE); BLOOD, URINE BLOOD 3+ (NEGATIVE); COLOR, URINE YELLOW (YELLOW); GLUCOSE, URINE (UA) AUTO 3+ mg/dL (NEGATIVE); KETONE, URINE AUTO NEGATIVE (NEGATIVE); LEUKOCYTE ESTERASE, URINE AUTO 3+ (NEGATIVE); NITRITE, URINE AUTO POSITIVE (NEGATIVE); PROTEIN, URINE AUTO 2+ mg/dL (NEGATIVE); RBC, URINE AUTO 79 /HPF (0-3); SPECIFIC GRAVITY URINE AUTO 1.023 (1.002-1.035); SQUAMOUS EPITHELIAL CELL UR AU 4 /HPF (0-6); UROBILINOGEN, URINE AUTO 0.2 mg/dL (0.0-2.0); WBC, URINE AUTO TNTC /HPF (0-3)
== END ==
LOC: M LAB REF 16:23
DX: N39.0 Urinary tract infection, site not specified (principal)

== ENCOUNTER → 2017-07-24 | Outpatient (CLI) | payer MEDICAID, OTHER | LOC: M PAIN 14:00 | DX: M79.602 Pain in left arm (principal); G89.29 Other chronic pain; E11.9 Type 2 diabetes mellitus without complications; F41.9 Anxiety disorder, unspecified; I10 Essential (primary) hypertension; E78.5 Hyperlipidemia, unspecified; E03.9 Hypothyroidism, unspecified; Z79.82 Long term (current) use of aspirin; Z79.4 Long term (current) use of insulin; Z79.899 Other long term (current) drug therapy | CPT/HCPCS: G0463 ==

== ENCOUNTER → 2018-01-23 | Outpatient (REF) | payer OTHER ==
[2018-01-23 19:16] LABS: BASO % 0.4 % (0.0-1.0); EOS # 0.3 10^3/uL (0.0-0.50); EOS % 2.6 % (0.0-3.0); HEMATOCRIT 39.8 % (36.0-47.0); HEMOGLOBIN 13.8 g/dl (12.0-15.5); IMMATURE GRANULOCYTE % 0.6 % (0-3.0); LYMPH # 3.2 10^3/uL (1.5-4.5); LYMPH % 30.5 % (24.0-44.0); MEAN CORPUSCULAR HEMOGLOBIN 31.1 pg (27.0-33.0); MEAN CORPUSCULAR HGB CONC 34.7 g/dl (32.0-36.5); MEAN CORPUSCULAR VOLUME 89.6 fl (80.0-96.0); MONO # 0.4 10^3/uL (0.0-0.8); MONO % 3.9 % (0.0-5.0); NEUTROPHILS # 6.5 10^3/uL (1.8-7.7); PLATELET COUNT, AUTOMATED 293 10^3/uL (150-450); RED BLOOD COUNT 4.44 10^6/uL (4.00-5.40); RED CELL DISTRIBUTION WIDTH 12.5 % (11.5-14.5); WHITE BLOOD COUNT 10.5 10^3/uL (4.0-10.0)
[2018-01-23 19:42] LABS: ESTIMATED AVERAGE GLUCOSE 289 MG/DL (60-110); HEMOGLOBIN A1c 11.7 %
[2018-01-23 20:03] LABS: ALBUMIN 3.1 GM/DL (3.2-5.2); ALBUMIN/GLOBULIN RATIO 0.76 (1.00-1.93); ALKALINE PHOSPHATASE 55 U/L (45-117); ALT/SGPT 29 U/L (12-78); ANION GAP 6 MEQ/L (8-16); AST/SGOT 18 U/L (7-37); BILIRUBIN,TOTAL 0.2 MG/DL (0.2-1.0); BLOOD UREA NITROGEN 25 MG/DL (7-18); CALCIUM LEVEL 9.8 MG/DL (8.5-10.1); CARBON DIOXIDE LEVEL 26 MEQ/L (21-32); CHLORIDE LEVEL 100 MEQ/L (98-107); CHOLESTEROL LEVEL 121 MG/DL (<200); CHOLESTEROL RISK RATIO 4.653 (<5); CREATININE FOR GFR 1.44 MG/DL (0.55-1.30); FOLATE 8.8 NG/ML; GLOMERULAR FILTRATION RATE 41.7 (>58); GLUCOSE, FASTING 428 MG/DL (70-100); HDL CHOLESTEROL 26 MG/DL (>40); LDL CHOLESTEROL 26 MG/DL (<100); NON-HDL-C 95 MG/DL; POTASSIUM SERUM 5.3 MEQ/L (3.5-5.1); SODIUM LEVEL 132 MEQ/L (136-145); TOTAL 25(OH) VITAMIN D 28.6 NG/ML (30.0-100.0); TOTAL PROTEIN 7.2 GM/DL (6.4-8.2); TRIGLYCERIDES LEVEL 345 MG/DL (<150); VITAMIN B12 LEVEL 289 PG/ML
== END ==
LOC: M LAB REF 18:31
DX: Z13.9 Encounter for screening, unspecified (principal)
CPT/HCPCS: 82746

== ENCOUNTER → 2018-03-26 | Outpatient (REF) | payer OTHER ==
[~2018-03-26] MED LIST changes: +AMOX875T PO; +ASPI81TAEC PO; +BASA100I; +BASA100I SC; +BUSP15TA47 PO; -CLON0.5T PO; +CLON0.5T8 PO; +DITR5TAB PO; +FENO160T10 PO; +GABA-843 PO; +OXYB5TAB10 PO; -ROCE1INJ4 IV; +ROCE1INJ6 IV; +SYNT125T PO; +VITA20008 PO
== END ==
LOC: M LAB REF 12:17
PROVIDERS: ATTEND Nurse Practitioner Family
DX: J02.9 Acute pharyngitis, unspecified (principal)

== ENCOUNTER → 2018-05-07 | Outpatient (CLI) | payer OTHER ==
--- NOTE | 2018-05-08 02:55 | REP ---
Clinical: Posterior right elbow pain after fall . Technique: AP, lateral, bilateral oblique views of the right elbow. Findings: No acute fracture or dislocation is appreciated. Joint spaces and surrounding soft tissues appear normal. Lateral view demonstrates normal positioning to the anterior and posterior fat pads without evidence for effusion/hemarthrosis. No subcutaneous emphysema or foreign body identified. Impression: Normal right elbow radiographs. Electronically Signed by Heron Salvador MD 05/08/2018 02:46 A
== END ==
LOC: M WUC 19:21
PROVIDERS: ATTEND Physician Assistant
DX: M25.521 Pain in right elbow (principal)

== ENCOUNTER → 2018-06-21 | Outpatient (REF) | payer OTHER ==
[~2018-06-21] MED LIST changes: +VITA500T17 PO; -VITA500T53 PO
== END ==
LOC: M LAB REF 19:15
PROVIDERS: ATTEND Physician Assistant
DX: J02.9 Acute pharyngitis, unspecified (principal)

== ENCOUNTER → 2018-10-09 | Outpatient (REF) | payer OTHER | LOC: M LAB REF 10:29 | PROVIDERS: ATTEND Physician Assistant | DX: R30.0 Dysuria (principal) ==

== ENCOUNTER → 2018-11-13 | Outpatient (REF) | payer OTHER ==
[2018-11-13 19:57] LABS: ALBUMIN 3.1 GM/DL (3.2-5.2); ALT/SGPT 33 U/L (12-78); BILIRUBIN,TOTAL 0.5 MG/DL (0.2-1.0); BLOOD UREA NITROGEN 9 MG/DL (7-18); CARBON DIOXIDE LEVEL 27 MEQ/L (21-32); CHLORIDE LEVEL 103 MEQ/L (98-107); CHOLESTEROL LEVEL 272 MG/DL (<200); CHOLESTEROL RISK RATIO 7.157 (<5); CREATININE FOR GFR 0.85 MG/DL (0.55-1.30); FREE T4 0.69 NG/DL (0.76-1.46); GLOMERULAR FILTRATION RATE > 60.0 (>58); GLUCOSE, FASTING 311 MG/DL (70-100); HDL CHOLESTEROL 38 MG/DL (>40); NON-HDL-C 234 MG/DL; POTASSIUM SERUM 3.9 MEQ/L (3.5-5.1); SODIUM LEVEL 136 MEQ/L (136-145); TOTAL PROTEIN 7.2 GM/DL (6.4-8.2); TRIGLYCERIDES LEVEL 493 MG/DL (<150)
[2018-11-13 19:59] LABS: TOTAL 25(OH) VITAMIN D 17.3 NG/ML (30.0-100.0)
[2018-11-13 20:15] LABS: BASO # 0.1 10^3/uL (0.0-0.2); BASO % 0.8 % (0.0-1.0); EOS # 0.2 10^3/uL (0.0-0.5); EOS % 3.2 % (0.0-3.0); HEMATOCRIT 42.2 % (36.0-47.0); HEMOGLOBIN 14.2 g/dl (12.0-15.5); LYMPH # 2.3 10^3/uL (1.5-5.0); LYMPH % 34.4 % (24.0-44.0); MEAN CORPUSCULAR HGB CONC 33.6 g/dl (32.0-36.5); MEAN CORPUSCULAR VOLUME 92.1 fl (80.0-96.0); MONO # 0.3 10^3/uL (0.0-0.8); MONO % 3.9 % (0.0-5.0); NEUTROPHILS # 3.8 10^3/uL (1.5-8.5); NEUTROPHILS % 57.2 % (36.0-66.0); PLATELET COUNT, AUTOMATED 264 10^3/uL (150-450); RED BLOOD COUNT 4.58 10^6/uL (4.00-5.40); WHITE BLOOD COUNT 6.6 10^3/uL (4.0-10.0)
== END ==
LOC: M LAB REF 19:14
PROVIDERS: ATTEND Nurse Practitioner Family
DX: E03.9 Hypothyroidism, unspecified (principal); I10 Essential (primary) hypertension; E78.5 Hyperlipidemia, unspecified; N39.41 Urge incontinence; Z13.9 Encounter for screening, unspecified

== ENCOUNTER → 2018-11-26 | Outpatient (REF) | payer OTHER | LOC: M LAB REF 10:03 | PROVIDERS: ATTEND Physician Assistant | DX: L02.31 Cutaneous abscess of buttock (principal) ==

== ENCOUNTER → 2019-02-13 | Outpatient (REF) | payer OTHER ==
[~2019-02-13] MED LIST changes: +CLON0.5T2 PO; -CLON0.5T8 PO
== END ==
LOC: M LAB REF 16:07
PROVIDERS: ATTEND Nurse Practitioner Family
DX: L02.214 Cutaneous abscess of groin (principal)

== ENCOUNTER 2019-02-20 18:30 | Inpatient (IN) | payer OTHER ==
[~2019-02-20] VITALS: Ht 165.1 cm; Wt 91.6 kg
[2019-02-20] MEDS ORDERED: TRUL0.5I INJ (18:53)
[2019-02-20] MEDS ORDERED: TRAZ-252 PO (18:53)
[2019-02-20] MEDS ORDERED: CEPH500C PO (18:53)
[2019-02-20] MEDS ORDERED: MORPHINE 4 MG/ML 1ML VIAL/SYRINGE (J2270) IV ONE (19:30)
[2019-02-20] MEDS ORDERED: NS 1,000 ML IV ONE (19:30)
[2019-02-20] MEDS ORDERED: ONDANSETRON 4MG/2ML VIAL (J2405) IV ONE (19:30)
[2019-02-20 21:08] LABS: BASO # 0.1 10^3/uL (0.0-0.2); BASO % 0.4 % (0.0-1.0); EOS % 0.2 % (0.0-3.0); HEMATOCRIT 38.1 % (36.0-47.0); LYMPH # 1.9 10^3/uL (1.5-5.0); LYMPH % 14.3 % (24.0-44.0); MEAN CORPUSCULAR HEMOGLOBIN 30.4 pg (27.0-33.0); MEAN CORPUSCULAR HGB CONC 34.1 g/dl (32.0-36.5); MONO # 0.6 10^3/uL (0.0-0.8); MONO % 4.1 % (0.0-5.0); NEUTROPHILS # 10.7 10^3/uL (1.5-8.5); NEUTROPHILS % 79.4 % (36.0-66.0); PLATELET COUNT, AUTOMATED 293 10^3/uL (150-450); RED BLOOD COUNT 4.28 10^6/uL (4.00-5.40); WHITE BLOOD COUNT 13.5 10^3/uL (4.0-10.0)
[2019-02-20 21:22] LABS: ALBUMIN 2.2 GM/DL (3.2-5.2); BILIRUBIN,DIRECT 0.2 MG/DL (0.0-0.2); BILIRUBIN,TOTAL 0.7 MG/DL (0.2-1.0)
[2019-02-20] MEDS ORDERED: ISOVUE-370 76% 100ML VIAL (Q9967) As Ordered ONE (21:28)
[2019-02-20] MEDS ORDERED: HumuLIN R (REGULAR) INSULIN (NovoLIN R) **100U/ML** PER UNIT IV ONE (22:00)
--- NOTE | 2019-02-20 22:29 | REPVR ---
PROCEDURE INFORMATION: Exam: CT Abdomen And Pelvis With Contrast Exam date and time: 02/20/2019 9:39 PM Age: 48 years old Clinical indication: Abdominal pain; Localized; Right lower quadrant (rlq); Additional info: Rlq pain, large mass suprapubic, draining labial boil TECHNIQUE: Imaging protocol: Computed tomography of the abdomen and pelvis with intravenous contrast. Radiation optimization: All CT scans at this facility use at least one of these dose optimization techniques: automated exposure control; mA and/or kV adjustment per patient size (includes targeted exams where dose is matched to clinical indication); or iterative reconstruction. Contrast material: ISOVUE 370; Contrast volume: 100 ml; Contrast route: IV; COMPARISON: No relevant prior studies available. FINDINGS: Liver: There is a diffuse decrease in hepatic parenchymal density, consistent with fatty infiltration. Gallbladder and bile ducts: There has been a cholecystectomy. Pancreas: Mild diffuse pancreatic atrophy. Spleen: There is mild splenomegaly with a maximum span of 13.3 centimeters. No focal abnormalities demonstrated. Adrenals: Normal. No mass. Kidneys and ureters: Normal. No hydronephrosis. Stomach and bowel: Unremarkable. No obstruction. No mucosal thickening. Appendix: No evidence of appendicitis. Intraperitoneal space: Unremarkable. No free air. No significant fluid collection. Vasculature: The aorta demonstrates mild atherosclerotic calcification. Lymph nodes: Unremarkable. No enlarged lymph nodes. Bladder: Unremarkable as visualized. Reproductive: Unremarkable as visualized. Bones/joints: Mild central spinal stenosis L3-L4 and moderate to severe central spinal stenosis L4-L5. Soft tissues: There is a moderate umbilical hernia. There is no evidence of incarceration. Inflammatory mass in the right inguinal region appears to represent a grossly inflamed/infected inguinal hernia containing markedly inflamed fat protruding into the hernia sac. Marked edema in the surrounding soft tissues and thickening and inflammation of the lower anterior abdominal wall muscles. IMPRESSION: 1. There is a diffuse decrease in hepatic parenchymal density, consistent with fatty infiltration. 2. There has been a cholecystectomy. 3. There is mild splenomegaly with a maximum span of 13.3 centimeters. No focal abnormalities demonstrated. 4. Inflammatory mass in the right inguinal region appears to represent a grossly inflamed/infected inguinal hernia containing markedly inflamed fat protruding into the hernia sac. Marked edema in the surrounding soft tissues and thickening and inflammation of the lower anterior abdominal wall muscles. Electronically signed by: Aldo Chew On 02/20/2019 22:28:27 PM
[2019-02-21] VITALS (9 sets, daily range): BP systolic 97–151; BP diastolic 59–98
[2019-02-21] MEDS ORDERED: MORPHINE 4 MG/ML 1ML VIAL/SYRINGE (J2270) IV ONE
[2019-02-21] MEDS ORDERED: DEBL1TAB PO (00:07)
[2019-02-21] MEDS ORDERED: TIZA4TAB4 PO (00:07)
[2019-02-21] MEDS ORDERED: PARO40TA2 PO (00:07)
[2019-02-21] MEDS ORDERED: VITA200010 PO (00:07)
[2019-02-21] MEDS ORDERED: TRUL0.5I SC (00:07)
[2019-02-21] MEDS ORDERED: ATOR1TAB19 PO (00:07)
[2019-02-21] MEDS ORDERED: TRAZ-252 PO (00:07)
[2019-02-21 00:47] LABS: C REACTIVE PROTEIN QUANTITATIV 40.8 MG/DL (0.00-0.30)
[2019-02-21] MEDS ORDERED: DEXTROSE 50% 50 ML SYRINGE IV PRN (01:45)
[2019-02-21] MEDS ORDERED: GLUCOSE 4 GM CHEW TABLET PO PRN (01:45)
[2019-02-21] MEDS ORDERED: traZODone 50 MG TAB PO PRN (01:45)
[2019-02-21] MEDS ORDERED: tiZANidine 4 MG TAB PO PRN (01:45)
[2019-02-21] MEDS ORDERED: GLUCAGON FOR INJ 1 MG VIAL (J1610) SC PRN (01:45)
[2019-02-21] MEDS ORDERED: VANCOMYCIN HCL 1,000 MG, VIAL MATE ADAPTER 1 EACH in D5W 250 ML IV ONE ×2 (01:45→04:00)
--- NOTE | 2019-02-21 01:54 | HPEPDOC ---
[facility] Medical History & Physical Date of Admission Feb 21, 2019 Date of Service: Feb 21, 2019 Attending Physician: DAVID LUNDBERG MD History and Physical CHIEF COMPLAINT: Vaginal boil HISTORY OF PRESENT ILLNESS: 48-year-old female with past medical history of bipolar depression, hypertension, hyperlipidemia, diabetes and hypothyroidism presents with a vaginal boil. Patient underwent drainage of the boil recently with subsequent treatment with Keflex, but reports that boil continues to get bigger with increased pain and drainage. Patient also reports a suprapubic mass over the past 24-48 hours. She denies any fever but does report chills and sweats. She denies any shortness of breath, chest pain, nausea, vomiting, abdominal pain or diarrhea. CT abdomen and pelvis in the ED shows possible infected inguinal hernia with diffuse subcutaneous inflammation. Dr. Hamilton was consulted by the emergency department who plans on taking patient to the OR tomorrow for incision and drainage. 10 point review of system is negative except for above PAST MEDICAL HISTORY: 1. Bipolar disorder. 2. Hypertension. 3. Hyperlipidemia. 4. Diabetes mellitus. 5. Hypothyroidism PAST SURGICAL HISTORY: 1. Cholecystectomy. SOCIAL HISTORY: Smokes one pack per day for 10 years, quit 1 year ago Denies alcohol use. denies drug use FAMILY HISTORY: No family history of cancer or heart disease ALLERGIES: Please see below. HOME MEDICATIONS: Please see below. PHYSICAL EXAMINATION: VITAL SIGNS: Please see below. GENERAL: No distress HEENT: Normocephalic, atraumatic, moist mucous membranes NECK: Supple CARDIOVASCULAR EXAMINATION: S1, S2, no murmurs RESPIRATORY EXAMINATION: Clear to auscultation, no wheezing ABDOMINAL EXAMINATION: Soft, nontender, nondistended, positive bowel sounds PELVIC: Right labia majora with swelling and pus drainage, erythema and tenderness to palpation. soft, nontender, mass noted in the suprapubic region. EXTREMITIES: Range of motion intact SKIN: No rash NEUROLOGICAL EXAMINATION: Alert and oriented 3, no focal deficits PSYCHIATRIC EXAMINATION: Calm and cooperative LABORATORY DATA: See below. IMAGING: CT abdomen and pelvis showing possible infected inguinal hernia with diffuse edema and inflammation MICROBIOLOGY: Please see below. ASSESSMENT: 48-year-old female with past medical history of bipolar disorder, hypertension, hyperlipidemia, diabetes mellitus and hypothyroidism presents with labial abscess draining pus with possible spread into inguinal region. PLAN: 1. Labial abscess. Draining pus, sent for cultures, imaging concerning for possible spread into the inguinal region, start vancomycin and Zosyn, blood cultures pending, Dr. Hamilton consulted by emergency department, plan for OR tomorrow. 2. Diabetes mellitus. Decrease home Levemir to 30 units at bedtime, will adjust based on patient's needs, sliding scale insulin before meals and at bedtime. 3. Hypertension. Continue lisinopril, atenolol, triamterene and hydrochlorothiazide 4. Hyperlipidemia. Continue statin 5. Bipolar depression. Continue Abilify, BuSpar and Paxil 6. Hypothyroidism. Continue levothyroxine DVT prophylactic: TEDs GI prophylaxis: Pepcid Vital Signs Vital Signs Date Time Temp Pulse Resp B/P (MAP) Pulse Ox O2 Delivery O2 Flow Rate FiO2 02/21/19 00:57 20 02/21/19 00:52 98.2 94 125/68 (87) 100 Room Air Laboratory Data Labs 24H Laboratory Tests 2 02/20/19 19:17: Immature Granulocyte % (Auto) 1.6, Neutrophils (%) (Auto) 79.4H, Lymphocytes (%) (Auto) 14.3L, Monocytes (%) (Auto) 4.1, Eosinophils (%) (Auto) 0.2, Basophils (%) (Auto) 0.4, Neutrophils # (Auto) 10.7H, Lymphocytes # (Auto) 1.9, Monocytes # (Auto) 0.6, Eosinophils # (Auto) 0.0, Basophils # (Auto) 0.1, Nucleated Red Blood Cells % (auto) 0.0, Lactic Acid Level 1.3, Total Bilirubin 0.7, Direct Bilirubin 0.2, Aspartate Amino Transf (AST/SGOT) 10, Alanine Aminotransferase (ALT/SGPT) 12, Alkaline Phosphatase 245H, C-Reactive Protein, Quantitative 40.80H, Total Protein 7.0, Albumin 2.2L, Albumin/Globulin Ratio 0.46L, Lipase 99 02/20/19 20:39: POC Glucose (Misc Panel) 478H, POC Sodium (Misc Panel) 134L, POC Potassium (Misc Panel) 3.6, POC Chloride (Misc Panel) 96L, POC Total CO2 (Misc Panel) 27.0, POC Blood Urea Nitrogen (Misc Panel 11, POC Ionized Calcium (Misc Panel) 5.2, POC Creatinine (Misc Panel) 0.8, POC Hematocrit (Misc Panel) 39.0 02/20/19 20:41: POC Beta HCG, Quantitative < 5.0 02/20/19 22:01: Bedside Glucose (Misc Panel) 389H 02/20/19 22:31: Urine Color YELLOW, Urine Appearance CLOUDYH, Urine pH 6.0, Urine Specific [place] 1.041, Urine Protein NEGATIVE, Urine Glucose (UA) 3+H, Urine Ketones 1+H, Urine Blood 2+H, Urine Nitrite NEGATIVE, Urine Bilirubin NEGATIVE, Urine Urobilinogen 0.2, Urine Leukocyte Esterase 3+H, Urine WBC (Auto) 47H, Urine RBC (Auto) 11H, Urine Hyaline Casts (Auto) 0, Urine Bacteria (Auto) NEGATIVE, Urine Squamous Epithelial Cells 8, Urine Mucus (Auto) SMALL, Urine Yeast-Like Cells (Auto) SMALLH, Urine Sperm (Auto) CBC/BMP Laboratory Tests 02/20/19 19:17 Microbiology Microbiology 02/20/19 Urine Culture, Received Pending 02/20/19 Blood Culture, Received Pending 02/20/19 Blood Culture, Received Pending Home Medications Scheduled Aripiprazole (Abilify) 10 Mg Tab, 10 MG PO DAILY Aspirin (Aspirin EC) 81 Mg Tabec, 81 MG PO DAILY Atenolol (Atenolol) 100 Mg Tab, 100 MG PO DAILY Atorvastatin Calcium (Atorvastatin Calcium) 10 Mg Tablet, 10 MG PO QHS Buspirone HCl (Buspirone HCl) 15 Mg Tab, 15 MG PO BID Cephalexin (Cephalexin) 500 Mg Capsule, 500 MG PO BID Cholecalciferol (Vitamin D3) (Vitamin D3) 2,000 Unit Tablet, 2,000 UNIT PO DAILY Dulaglutide (Trulicity) 1.5 Mg/0.5 Ml Pen.injctr, 1.5 MG SC 1XWK MONDAYS @ 1500 Famotidine (Famotidine) 40 Mg Tab, 40 MG PO DAILY Fenofibrate (Fenofibrate) 160 Mg Tab, 160 MG PO QHS Insulin Glargine,Hum.rec.anlog (Basaglar Kwikpen U-100) 100 Unit/Ml Inj, 45 UNIT SC QHS Levothyroxine Sodium (Synthroid) 125 Mcg Tab, 125 MCG PO DAILY Lisinopril (Lisinopril) 20 Mg Tab, 20 MG PO QHS Metformin HCl (Metformin HCl) 1,000 Mg Tab, 1,000 MG PO BID Norethindrone (Deblitane) 0.35 Mg Tablet, 0.35 MG PO QHS Oxybutynin Chloride (Oxybutynin Chloride) 5 Mg Tab, 5 MG PO BID Paroxetine HCl (Paroxetine HCl) 40 Mg Tablet, 40 MG PO DAILY Triamterene/Hydrochlorothiazid (Triamterene-Hctz 37.5-25 mg Cp) 1 Cap Cap, 1 CAP PO DAILY Scheduled PRN Tizanidine HCl (Tizanidine HCl) 4 Mg Tablet, 4 MG PO TID PRN for MUSCLE SPASMS Trazodone HCl (Trazodone HCl) 50 Mg Tablet, 50 MG PO QHS PRN for INSOMNIA Allergies Coded Allergies: No Known Allergies (Unverified , 02/20/19) A-FIB/CHADSVASC A-FIB History Current/History of A-Fib/PAF?: No DAVID LUNDBERG MD Feb 21, 2019 01:54
[2019-02-21] MEDS ORDERED: CALCIUM CARBONATE 500 MG CHEW U/D PO PRN (03:15)
[2019-02-21] MEDS: LEVEMIR (INSULIN DETEMIR) 1 UNITS/0.01ML SC SCH ×2 (03:21→20:20)
[2019-02-21] MEDS: NS 1,000 ML IV SCH ×2 (03:22→15:02)
[2019-02-21] MEDS: LEVOTHYROXINE 125MCG TABLET (0.125MG) PO SCH (06:23)
[2019-02-21] MEDS: PIPERACILLIN/TAZOBACTAM SOD 3.375 GM in D5W MINI-BAG PLUS 50 ML IV SCH ×3 (06:23→17:28)
[2019-02-21 06:32] LABS: HEMATOCRIT 37.9 % (36.0-47.0); HEMOGLOBIN 12.3 g/dl (12.0-15.5); MEAN CORPUSCULAR HEMOGLOBIN 30.1 pg (27.0-33.0); MEAN CORPUSCULAR HGB CONC 32.5 g/dl (32.0-36.5); MEAN CORPUSCULAR VOLUME 92.7 fl (80.0-96.0); PLATELET COUNT, AUTOMATED 267 10^3/uL (150-450); RED BLOOD COUNT 4.09 10^6/uL (4.00-5.40); WHITE BLOOD COUNT 12.6 10^3/uL (4.0-10.0)
--- NOTE | 2019-02-21 06:43 | PHACANCOPD ---
PHARMACY VANCOMYCIN DOSING Pt Demographics Demographics Patient Age:48 , Weight:91.600 , Gender: female Adjusted Body Weight Date: 02/21/19, Adjusted Body Weight: [70.8] Kg Vancomycin Vancomycin indication: VAGINAL ABCESS Vancomycin Target Ranges: 15-20 mcg/ml Vancomycin Load Y/N: Yes Load Dose Date Time Vancomycin Load Dose: 2GM Date: Time: 0300 Vancomycin Dose Date: 02/21/19. Current Vancomycin Dose: [1GM Q8H] Intermittent Dosing?: No Labs Micro Microbiology 02/21/19 Gram Stain, Received Pending 02/21/19 Wound Culture, Received Pending 02/20/19 Urine Culture, Received Pending 02/20/19 Blood Culture, Received Pending 02/20/19 Blood Culture, Received Pending Creatinine Clearance Date:02/21/19. Creatinine Clearance: . Assessment and Plan Maintaining Current Dose?: Yes Reason for dose change: No Dose Change Pharmacist Note Pharmacist Note Date: 02/21/19. Pharmacist note:48 YOF ADMITTED W/ VAGINAL ABCESS D/T failure on outpatient therapy w/Cephalexin, SCR=0.8,calculated CRCL=97.2, NKDA, to receive Pip/Tazo 3.375 q6h and pharmacy dosed Vancomycin .Vancomycin 2 gram load administered 02/21 @0300, then to begin 1 gram IV q8hour regimen 02/21@1400. First trough is scheduled 02/22 @0500- Will continue to follow. EZRA GUTIÉRREZ PHARMACY Feb 21, 2019 06:43
[2019-02-21 06:49] LABS: BLOOD UREA NITROGEN 12 MG/DL (7-18); CALCIUM LEVEL 9.5 MG/DL (8.5-10.1); CARBON DIOXIDE LEVEL 27 MEQ/L (21-32); CHLORIDE LEVEL 101 MEQ/L (98-107); GLOMERULAR FILTRATION RATE > 60.0 (>58); GLUCOSE, FASTING 379 MG/DL (70-100); POTASSIUM SERUM 3.4 MEQ/L (3.5-5.1); SODIUM LEVEL 137 MEQ/L (136-145)
[2019-02-21] MEDS: VITAMIN D 1,000 INTERNATIONAL UNITS TABLET PO SCH (08:17)
[2019-02-21] MEDS: HumaLOG INSULIN (NovoLOG) PER UNIT SC SCH ×4 (08:17→20:20)
[2019-02-21] MEDS: oxyBUTYnin 5 MG TAB PO SCH ×2 (08:18→20:19)
[2019-02-21] MEDS: PARoxetine 20 MG TAB PO SCH (08:18)
[2019-02-21] MEDS: atenoloL 50 MG TAB PO SCH (08:18)
[2019-02-21] MEDS: busPIRone 5 MG TAB PO SCH ×2 (08:18→20:19)
[2019-02-21] MEDS: ASPIRIN 81 MG ENTERIC TAB PO SCH (08:19)
[2019-02-21] MEDS: FAMOTIDINE 20 MG TAB PO SCH (08:19)
[2019-02-21] MEDS: ARIPiprazole 10 MG TAB PO SCH (10:18)
[2019-02-21] MEDS: DYAZIDE 37.5/25 CAP (TRIAM/HCTZ) PO SCH (10:18)
[2019-02-21] MEDS: KETOROLAC 30 MG/ML VIAL (J1885) IV PRN ×2 (10:19→17:28)
[2019-02-21 10:23] LABS: HEMOGLOBIN A1c 14.3 %
--- NOTE | 2019-02-21 10:33 | CR.PDOC ---
General Surgery Consultation Date of Consultation 02/21/19 History and Physical CONSULT REPORT FOR: emergency room provider/hospitalist service REASON FOR CONSULTATION: right groin swelling/abscess HISTORY OF PRESENT ILLNESS: Patient is a 48 year old female with diabetes (poor control, on insulin and oral hypoglycemics), morbid obesity, poor hygiene presented to the Ed on 02/20/19 with complaints of right groin swelling. She has a right labial abscess drained at an urgent care setting 4 days prior and has been placed on keflex. She reports continued foul smelling drainage at the I&D site; denies fevers or chills; but reports increasing swelling on her groin with increased discomfort prompting the emergency room visit. In the ER, she was found to have mild leukocytosis, highly elevated crp (40), and a soft tissue swelling on the right groin. A Ct of the abdomen and pelvis was done to evaluate this and read by the overnight physician as possible incarcerated hernia. She is subsequently admitted to the hospitalist service and started on IV antibiotics. PAST MEDICAL HISTORY: 1. Diabetes 2. Moderate obesity (BMI 33.6) 3. bipolar disorder 4. Hypothyroidism 5. Hyperlipidemia 6. Hypertension PAST SURGICAL HISTORY: INCLUDES: 1. Cholecystectomy SOCIAL HISTORY: Patient reports currently not smoking. Denies alcohol or recrea tional drug use. ALLERGIES: Please see below. FAMILY HISTORY: noncontributory. HOME MEDICATIONS: Please see below. REVIEW OF SYSTEMS: GENERAL: denies fevers, chills, feels weak. Symptoms are about 1 week in duration. HEENT: Denies blurred vision and double vision. Denies ear symptoms. Denies h oarseness. NECK: Denies any neck pain CARDIOVASCULAR: Denies chest pain and palpitations. MUSCULOSKELETAL: Denies arthralgias, back pain SKIN: mild erythema on right groin. NEUROLOGIC: Denies headache, stroke and transient ischemic attack. PSYCHIATRIC: with history of bipolar disorder. ENDOCRINE: On thyroid supplementation. HEMATOLOGY/ONCOLOGY: Denies bleeding or clotting disorder. HEART: Denies any chest pains, palpitations, paroxysmal dyspnea, orthopnea. PULMONARY: Denies chronic cough, dyspnea and wheezing. GASTROINTESTINAL: Denies rectal bleeding, family history of colon cancer, constipation, diarrhea, dysphagia, heartburn and jaundice. GENITOURINARY: Denies dysuria, frequency, hematuria and nocturia. ENDOCRINE: Denies polydipsia, polyphagia, polyuria, heat or cold intolerance. INFECTIOUS: On Keflex for the labial abscess. NUTRITION: Reports poor appetite. PHYSICAL EXAMINATION: VITALS SIGNS: Please see below. GENERAL APPEARANCE: Patient seen laying in bed relatively comfortable in appearance, not in any cardiorespiratory distress. SKIN: Warm and dry. HEENT: Normocephalic, slightly disheveled appearance, multiple rotten teeth NECK: Supple, no thyromegaly. No obvious jugular venous distention. LUNGS: Clear to auscultation bilaterally. No wheezing appreciated. HEART: No chest wall abnormalities. Regular rate and rhythm with no murmurs appreciated. ABDOMEN: Abdomen is moderately obese with large hanging pannus to her mid thigh area covering most of her groin. The groin itself is quite moist either with drainage from the labial abscess or from sweating with bowel smell. There is a distinct soft tissue induration at the right of the symphysis pubis which is hard. There is faint erythema from the labia to the groin area. Mildly tender on palpation. EXTREMITIES: Extremities have no deformities. No edema identified ANCILLARIES: . LABORATORY DATA: Please see below. IMAGING STUDIES: . CT abdomen and pelvis 1. There is a diffuse decrease in hepatic parenchymal density, consistent with fatty infiltration. 2. There has been a cholecystectomy. 3. There is mild splenomegaly with a maximum span of 13.3 centimeters. No focal abnormalities demonstrated. 4. Inflammatory mass in the right inguinal region appears to represent a grossly inflamed/infected inguinal hernia containing markedly inflamed fat protruding into the hernia sac. Marked edema in the surrounding soft tissues and thickening and inflammation of the lower anterior abdominal wall muscles. IMPRESSION AND PLAN: Right groin cellulitis and soft tissue infection that started from a right labia l abscess. Given that she is diabetic, with poor hygiene, and especially a high CRP, primary concern if this is a necrotizing soft tissue infection. From the outside as well as from her hemodynamics, this does not seem to rise to that level. She is not on any inhibitor to put her at risk for necrotizing fasciitis. Still I believe this needs to be explored for better idea of the depth of the soft tissue infection in the operating room under anesthesia. She has this hardened ball a soft tissue at the suprapubic area but this does not seem to change with Valsalva. I do not believe that she has a hernia at this point and this is most likely a self-contained collection or deep soft tissue induration that spread out from the labial infection. She is already on Zosyn which should adequately cover the organisms in this area. He'll get some: Cultures after cleaning out. I believe he probably will need a separate counterincision better than the big incision that started from the labia to expose the infected, indurated tissue. I have explained to the patient the plan for surgery and she has verbally agreed. Vital Signs Vital Signs Date Time Temp Pulse Resp B/P (MAP) Pulse Ox O2 Delivery O2 Flow Rate FiO2 02/21/19 06:07 97.6 87 20 124/82 (96) 94 Room Air I&Os I&O- Last 24 Hours up to 6 AM 02/21/19 06:00 Intake Total 1120 ml Output Total 0 ml Balance 1120 ml Laboratory Data Labs 24H Laboratory Tests 2 02/20/19 19:17: Immature Granulocyte % (Auto) 1.6, Neutrophils (%) (Auto) 79.4H, Lymphocytes (%) (Auto) 14.3L, Monocytes (%) (Auto) 4.1, Eosinophils (%) (Auto) 0.2, Basophils (%) (Auto) 0.4, Neutrophils # (Auto) 10.7H, Lymphocytes # (Auto) 1.9, Monocytes # (Auto) 0.6, Eosinophils # (Auto) 0.0, Basophils # (Auto) 0.1, Nucleated Red Blood Cells % (auto) 0.0, Lactic Acid Level 1.3, Total Bilirubin 0.7, Direct Bilirubin 0.2, Aspartate Amino Transf (AST/SGOT) 10, Alanine Aminotransferase (ALT/SGPT) 12, Alkaline Phosphatase 245H, C-Reactive Protein, Quantitative 40.80H, Total Protein 7.0, Albumin 2.2L, Albumin/Globulin Ratio 0.46L, Lipase 99 02/20/19 20:39: POC Glucose (Misc Panel) 478H, POC Sodium (Misc Panel) 134L, POC Potassium (Misc Panel) 3.6, POC Chloride (Misc Panel) 96L, POC Total CO2 (Misc Panel) 27.0, POC Blood Urea Nitrogen (Misc Panel 11, POC Ionized Calcium (Misc Panel) 5.2, POC Creatinine (Misc Panel) 0.8, POC Hematocrit (Misc Panel) 39.0 02/20/19 20:41: POC Beta HCG, Quantitative < 5.0 02/20/19 22:01: Bedside Glucose (Misc Panel) 389H 02/20/19 22:31: Urine Color YELLOW, Urine Appearance CLOUDYH, Urine pH 6.0, Urine Specific [place] 1.041, Urine Protein NEGATIVE, Urine Glucose (UA) 3+H, Urine Ketones 1+H, Urine Blood 2+H, Urine Nitrite NEGATIVE, Urine Bilirubin NEGATIVE, Urine Urobilinogen 0.2, Urine Leukocyte Esterase 3+H, Urine WBC (Auto) 47H, Urine RBC (Auto) 11H, Urine Hyaline Casts (Auto) 0, Urine Bacteria (Auto) NEGATIVE, Urine Squamous Epithelial Cells 8, Urine Mucus (Auto) SMALL, Urine Yeast-Like Cells (Auto) SMALLH, Urine Sperm (Auto) 02/21/19 03:05: Bedside Glucose (Misc Panel) 305H 02/21/19 05:49: Nucleated Red Blood Cells % (auto) 0.0, Anion Gap 9, Glomerular Filtration Rate > 60.0, Calcium Level 9.5 CBC/BMP Laboratory Tests 02/20/19 19:17 02/21/19 05:49 Microbiology Microbiology 02/21/19 Gram Stain, Received Pending 02/21/19 Wound Culture, Received Pending 02/20/19 Urine Culture, Received Pending 02/20/19 Blood Culture, Received Pending 02/20/19 Blood Culture, Received Pending Home Medications Scheduled Aripiprazole (Abilify) 10 Mg Tab, 10 MG PO DAILY, (Reported) Aspirin (Aspirin EC) 81 Mg Tabec, 81 MG PO DAILY, (Reported) Atenolol (Atenolol) 100 Mg Tab, 100 MG PO DAILY, (Reported) Atorvastatin Calcium (Atorvastatin Calcium) 10 Mg Tablet, 10 MG PO QHS, (Reported) Buspirone HCl (Buspirone HCl) 15 Mg Tab, 15 MG PO BID, (Reported) Cephalexin (Cephalexin) 500 Mg Capsule, 500 MG PO BID, (Reported) Cholecalciferol (Vitamin D3) (Vitamin D3) 2,000 Unit Tablet, 2,000 UNIT PO DAILY, (Reported) Dulaglutide (Trulicity) 1.5 Mg/0.5 Ml Pen.injctr, 1.5 MG SC 1XWK, (Reported) MON @ 1500 Famotidine (Famotidine) 40 Mg Tab, 40 MG PO DAILY, (Reported) Fenofibrate (Fenofibrate) 160 Mg Tab, 160 MG PO QHS, (Reported) Insulin Glargine,Hum.rec.anlog (Basaglar Kwikpen U-100) 100 Unit/Ml Inj, 45 UNIT SC QHS, (Reported) Levothyroxine Sodium (Synthroid) 125 Mcg Tab, 125 MCG PO DAILY, (Reported) Lisinopril (Lisinopril) 20 Mg Tab, 20 MG PO QHS, (Reported) Metformin HCl (Metformin HCl) 1,000 Mg Tab, 1,000 MG PO BID, (Reported) Norethindrone (Deblitane) 0.35 Mg Tablet, 0.35 MG PO QHS, (Reported) Oxybutynin Chloride (Oxybutynin Chloride) 5 Mg Tab, 5 MG PO BID, (Reported) Paroxetine HCl (Paroxetine HCl) 40 Mg Tablet, 40 MG PO DAILY, (Reported) Triamterene/Hydrochlorothiazid (Triamterene-Hctz 37.5-25 mg Cp) 1 Cap Cap, 1 CAP PO DAILY, (Reported) Scheduled PRN Tizanidine HCl (Tizanidine HCl) 4 Mg Tablet, 4 MG PO TID PRN for MUSCLE SPASMS, (Reported) Trazodone HCl (Trazodone HCl) 50 Mg Tablet, 50 MG PO QHS PRN for INSOMNIA, (Reported) Allergies Coded Allergies: No Known Allergies (Unverified , 02/20/19) SHARON HARRINGTON MD Feb 21, 2019 07:55
[2019-02-21] MEDS ORDERED: propofoL 200 MG/20 ML VIAL As Ordered ONE (12:05)
[2019-02-21] MEDS ORDERED: fentaNYL 100 MCG/2 ML INJECTION (J3010) As Ordered ONE (12:05)
[2019-02-21] MEDS ORDERED: MIDAZOLAM INJ 2 MG/2 ML VIAL (J2250) As Ordered ONE (12:05)
[2019-02-21] MEDS ORDERED: ROCURONIUM BROMIDE 50 MG/5 ML VIAL As Ordered ONE (12:06)
[2019-02-21] MEDS ORDERED: LIDOCAINE 2% INJ 100 MG/5 ML SDV (FOR ANES.) As Ordered ONE (12:06)
[2019-02-21] MEDS ORDERED: ONDANSETRON 4MG/2ML VIAL (J2405) As Ordered ONE (12:39)
[2019-02-21] MEDS: BUPIVACAINE HCL 0.25% 30 ML VIAL As Ordered ONE (13:02)
[2019-02-21] MEDS: LIDOCAINE 1% SDV INJ 30 ML VIAL As Ordered ONE (13:02)
[2019-02-21] MEDS ORDERED: PHENYLephrine HCL 500 MCG/5 ML (100MCG/ML) SYRINGE (J2370) As Ordered ONE (13:48)
[2019-02-21] MEDS ORDERED: LR 1,000 ML IV SCH (14:00)
[2019-02-21] MEDS ORDERED: PHENYLEPHRINE HCL INJ 10 MG in D5W 99 ML IV SCH (14:00)
[2019-02-21] MEDS ORDERED: fentaNYL 100 MCG/2 ML INJECTION (J3010) IV PRN (14:00)
[2019-02-21] MEDS: ePHEDrine SULFATE 25 MG/5 ML(5MG/ML) SYRINGE IV SCH ×3 (14:00→14:06)
[2019-02-21] MEDS ORDERED: PERCOCET 5MG/325MG TAB PO PRN (14:00)
[2019-02-21] MEDS ORDERED: ONDANSETRON 4MG/2ML VIAL (J2405) IV PRN (14:00)
[2019-02-21] MEDS ORDERED: PHENYLephrine HCL 500 MCG/5 ML (100MCG/ML) SYRINGE (J2370) IV PRN (14:15)
[2019-02-21] MEDS ORDERED: SODIUM CHLORIDE 0.9% 1000ML IV ONE ×2 (14:15)
[2019-02-21] MEDS ORDERED: ePHEDrine SULFATE 25 MG/5 ML(5MG/ML) SYRINGE ONE (14:27)
[2019-02-21] MEDS: VANCOMYCIN HCL 1,000 MG, VIAL MATE ADAPTER 1 EACH in D5W 250 ML IV SCH ×2 (15:01→21:52)
[2019-02-21] MEDS: ANEXSIA, NORCO 7.5MG/325MG TABLET(HYDROCODONE/APAP) PO PRN (19:34)
[2019-02-21] MEDS: ATORVASTATIN 10 MG TAB PO SCH (20:19)
[2019-02-21] MEDS: lisinopriL 20 MG TAB PO SCH (20:20)
[2019-02-22] MEDS: PIPERACILLIN/TAZOBACTAM SOD 3.375 GM in D5W MINI-BAG PLUS 50 ML IV SCH ×5 (00:01→22:44)
[2019-02-22] MEDS: KETOROLAC 30 MG/ML VIAL (J1885) IV PRN ×3 (00:06→20:38)
[2019-02-22] MEDS: ANEXSIA, NORCO 7.5MG/325MG TABLET(HYDROCODONE/APAP) PO PRN ×2 (02:46→13:39)
[2019-02-22] MEDS: NS 1,000 ML IV SCH ×2 (04:43→15:10)
[2019-02-22 05:32] LABS: HEMATOCRIT 35.8 % (36.0-47.0); HEMOGLOBIN 11.2 g/dl (12.0-15.5); MEAN CORPUSCULAR HEMOGLOBIN 29.7 pg (27.0-33.0); MEAN CORPUSCULAR HGB CONC 31.3 g/dl (32.0-36.5); PLATELET COUNT, AUTOMATED 246 10^3/uL (150-450); RED BLOOD COUNT 3.77 10^6/uL (4.00-5.40); WHITE BLOOD COUNT 11.6 10^3/uL (4.0-10.0)
[2019-02-22 05:53] LABS: ALBUMIN 1.6 GM/DL (3.2-5.2); ALT/SGPT 68 U/L (12-78); BILIRUBIN,TOTAL 0.3 MG/DL (0.2-1.0); BLOOD UREA NITROGEN 17 MG/DL (7-18); CALCIUM LEVEL 8.2 MG/DL (8.5-10.1); CARBON DIOXIDE LEVEL 21 MEQ/L (21-32); CHLORIDE LEVEL 104 MEQ/L (98-107); GLOMERULAR FILTRATION RATE > 60.0 (>58); GLUCOSE, FASTING 277 MG/DL (70-100); POTASSIUM SERUM 3.6 MEQ/L (3.5-5.1); SODIUM LEVEL 134 MEQ/L (136-145); TOTAL PROTEIN 5.4 GM/DL (6.4-8.2)
[2019-02-22 06:00] VITALS: BP 95/62
--- NOTE | 2019-02-22 06:06 | PHACANCOPD ---
PHARMACY VANCOMYCIN DOSING Pt Demographics Demographics Patient Age:48 , Weight:91.600 , Gender: female Adjusted Body Weight Date: 02/21/19, Adjusted Body Weight: [70.8] Kg Vancomycin Vancomycin indication: VAGINAL ABCESS Vancomycin Target Ranges: 15-20 mcg/ml Vancomycin Load Y/N: Yes Load Dose Date Time Vancomycin Load Dose: 2GM Date: Time: 0300 Vancomycin Dose Date: 02/22/19. Current Vancomycin Dose: [750MG Q8H] Date: 02/21/19. Current Vancomycin Dose: [1GM Q8H] Intermittent Dosing?: No Labs Micro Microbiology 02/21/19 Gram Stain - Final, Resulted 02/21/19 Wound Culture, Resulted Pending 02/21/19 Anaerobic Culture, Resulted Pending 02/21/19 Gram Stain - Final, Resulted 02/21/19 Wound Culture, Resulted Pending 02/20/19 Urine Culture - Final, Complete 02/20/19 Blood Culture - Preliminary, Resulted No growth after 24 hours . All specim... 02/20/19 Blood Culture - Preliminary, Resulted No growth after 24 hours . All specim... Creatinine Clearance Date:02/21/19. Creatinine Clearance: . Assessment and Plan Maintaining Current Dose?: No Reason for dose change: Trough too high Pharmacist Note Pharmacist Note Date: 02/22/19. Pharmacist note:ancomycin trough drawn@0500 this morning=20.5,SCR up a bit to 0.9.Will adjust current regimen to 750mg IV [id number] beginning@10:00.Next trough=02/23@0900. Date: 02/21/19. Pharmacist note:48 YOF ADMITTED W/ VAGINAL ABCESS D/T failure on outpatient therapy w/Cephalexin, SCR=0.8,calculated CRCL=97.2, NKDA, to receive Pip/Tazo 3.375 q6h and pharmacy dosed Vancomycin .Vancomycin 2 gram load administered 02/21 @0300, then to begin 1 gram IV q8hour regimen 02/21@1400. First trough is scheduled 02/22 @0500- Will continue to follow. EZRA GUTIÉRREZ [facility]ARM[facility] Feb 22, 2019 06:06
[2019-02-22] MEDS: LEVOTHYROXINE 125MCG TABLET (0.125MG) PO SCH (06:14)
[2019-02-22] MEDS: HumaLOG INSULIN (NovoLOG) PER UNIT SC SCH ×4 (08:02→20:39)
[2019-02-22] MEDS: ARIPiprazole 10 MG TAB PO SCH (08:03)
[2019-02-22] MEDS: ASPIRIN 81 MG ENTERIC TAB PO SCH (08:03)
[2019-02-22] MEDS: PARoxetine 20 MG TAB PO SCH (08:03)
[2019-02-22] MEDS: FAMOTIDINE 20 MG TAB PO SCH (08:03)
[2019-02-22] MEDS: VITAMIN D 1,000 INTERNATIONAL UNITS TABLET PO SCH (08:03)
[2019-02-22] MEDS: busPIRone 5 MG TAB PO SCH ×2 (08:03→20:39)
[2019-02-22] MEDS: oxyBUTYnin 5 MG TAB PO SCH ×2 (08:03→20:39)
[2019-02-22] MEDS: atenoloL 50 MG TAB PO SCH (08:03)
[2019-02-22] MEDS: DYAZIDE 37.5/25 CAP (TRIAM/HCTZ) PO SCH (08:03)
[2019-02-22] MEDS: VANCOMYCIN HCL 750 MG, VIAL MATE ADAPTER 1 EACH in D5W 250 ML IV SCH ×2 (09:54→17:32)
[2019-02-22 14:00] VITALS: BP 112/73
--- NOTE | 2019-02-22 18:42 | IPNPDOC ---
Text Note Date of Service The patient was seen on 02/22/19. NOTE SUBJECTIVE: Patient is POD#1 from I & D of a labial abscess. She has some post-op pain. OBJECTIVE: Physical exam: HENT: neck is supple, no adenopathy, mucosa moist CV: RRR, systolic murmur to left of sternum CHEST: CTA ABD: soft, non-tender, morbidly obese : R. labial incision site with packing and drainage EXT: no edema, pedal pulses are palpable ASSESSMENT/PLAN: 1.Labial Abscess She is now s/p I & D. Hydrocodone available for pain. Remains on antibiotics--Vanco and Zosyn. Initial culture result shows GNR. 2. NIDDM Blood sugars poorly controlled. HGBaic 14.3. Adjusting her insulin dosing. VS,Fishbone, I+O VS, Fishbone, I+O Laboratory Tests 02/22/19 05:15 Vital Signs Date Time Temp Pulse Resp B/P (MAP) Pulse Ox O2 Delivery O2 Flow Rate FiO2 02/22/19 14:09 16 02/22/19 14:00 98.1 70 112/73 (86) 94 Room Air 02/21/19 15:12 2.0 I&O- Last 24 Hours up to 6 AM 02/22/19 08:00 Intake Total 4140 ml Output Total 20 ml Balance 4120 ml CRISTOBAL DEVINE MD Feb 22, 2019 18:42
[2019-02-22] MEDS: lisinopriL 20 MG TAB PO SCH (20:38)
[2019-02-22] MEDS: ATORVASTATIN 10 MG TAB PO SCH (20:39)
[2019-02-22] MEDS: LEVEMIR (INSULIN DETEMIR) 1 UNITS/0.01ML SC SCH (20:40)
[2019-02-22 22:00] VITALS: BP 110/72
[2019-02-23] MEDS: ANEXSIA, NORCO 7.5MG/325MG TABLET(HYDROCODONE/APAP) PO PRN ×4 (01:21→21:31)
[2019-02-23] MEDS: VANCOMYCIN HCL 750 MG, VIAL MATE ADAPTER 1 EACH in D5W 250 ML IV SCH ×3 (01:22→16:56)
[2019-02-23] MEDS: LEVOTHYROXINE 125MCG TABLET (0.125MG) PO SCH (05:04)
[2019-02-23] MEDS: PIPERACILLIN/TAZOBACTAM SOD 3.375 GM in D5W MINI-BAG PLUS 50 ML IV SCH ×4 (05:05→22:08)
[2019-02-23] MEDS: KETOROLAC 30 MG/ML VIAL (J1885) IV PRN (05:05)
[2019-02-23 06:00] VITALS: BP 120/83
[2019-02-23] MEDS: NS 1,000 ML IV SCH ×2 (08:10→12:40)
[2019-02-23] MEDS: LEVEMIR (INSULIN DETEMIR) 1 UNITS/0.01ML SC SCH ×2 (08:11→21:32)
[2019-02-23] MEDS: FAMOTIDINE 20 MG TAB PO SCH (08:11)
[2019-02-23] MEDS: HumaLOG INSULIN (NovoLOG) PER UNIT SC SCH ×4 (08:11→21:32)
[2019-02-23] MEDS: busPIRone 5 MG TAB PO SCH ×2 (08:12→21:30)
[2019-02-23] MEDS: DYAZIDE 37.5/25 CAP (TRIAM/HCTZ) PO SCH (08:12)
[2019-02-23] MEDS: ASPIRIN 81 MG ENTERIC TAB PO SCH (08:12)
[2019-02-23] MEDS: VITAMIN D 1,000 INTERNATIONAL UNITS TABLET PO SCH (08:12)
[2019-02-23] MEDS: oxyBUTYnin 5 MG TAB PO SCH ×2 (08:13→21:30)
[2019-02-23] MEDS: ARIPiprazole 10 MG TAB PO SCH (08:13)
[2019-02-23] MEDS: PARoxetine 20 MG TAB PO SCH (08:14)
[2019-02-23] MEDS: atenoloL 50 MG TAB PO SCH (08:14)
[2019-02-23 09:25] LABS: BLOOD UREA NITROGEN 11 MG/DL (7-18); CALCIUM LEVEL 8.4 MG/DL (8.5-10.1); CARBON DIOXIDE LEVEL 24 MEQ/L (21-32); CHLORIDE LEVEL 104 MEQ/L (98-107); CREATININE FOR GFR 0.95 MG/DL (0.55-1.30); GLOMERULAR FILTRATION RATE > 60.0 (>58); GLUCOSE, FASTING 362 MG/DL (70-100); POTASSIUM SERUM 3.4 MEQ/L (3.5-5.1); SODIUM LEVEL 137 MEQ/L (136-145); VANCOMYCIN LEVEL TROUGH 13.9 UG/ML (10.0-20.0)
[2019-02-23] MEDS ORDERED: POTASSIUM CHLORIDE 10 MEQ SR TABLET PO ONE (13:00)
[2019-02-23 14:00] VITALS: BP 119/79
[2019-02-23] MEDS: metFORMIN (GLUCOPHAGE) 1000 MG TABLET PO SCH (16:55)
[2019-02-23] MEDS: ATORVASTATIN 10 MG TAB PO SCH (21:30)
[2019-02-23] MEDS: lisinopriL 20 MG TAB PO SCH (21:30)
[2019-02-23 22:00] VITALS: BP 122/82
[2019-02-24] MEDS: VANCOMYCIN HCL 750 MG, VIAL MATE ADAPTER 1 EACH in D5W 250 ML IV SCH (02:18)
[2019-02-24] MEDS: NS 1,000 ML IV SCH (04:45)
[2019-02-24] MEDS: ANEXSIA, NORCO 7.5MG/325MG TABLET(HYDROCODONE/APAP) PO PRN ×3 (05:05→20:54)
[2019-02-24] MEDS: LEVOTHYROXINE 125MCG TABLET (0.125MG) PO SCH (05:05)
[2019-02-24] MEDS: PIPERACILLIN/TAZOBACTAM SOD 3.375 GM in D5W MINI-BAG PLUS 50 ML IV SCH ×4 (05:07→23:13)
[2019-02-24 06:00] VITALS: BP 138/83
--- NOTE | 2019-02-24 07:15 | IPN ---
DATE OF SERVICE: 02/23/2019 This is a 48-year-old female who is postoperative day two from irrigation and debridement of a labial abscess. She is feeling much better. The pain has decreased. She has been out of bed. Remains afebrile. Vancomycin trough 13.9 this morning. Sodium was 137, potassium 3.4 - replacement was ordered, chloride 104, CO2 24, BUN 11, creatinine 0.9. Her fasting blood sugar was 362. She is a poorly controlled diabetic. Will increase her Levemir to 32 units twice a day from 30. Will reinitiate her metformin. Her would culture grew Aerococcus viridans. She continues on vancomycin and Zosyn. She is afebrile. OBJECTIVE: Blood pressure 122/82. Pulse 74. Respirations 18. Temperature 98. Oxygen saturation 98% on room air. The patient is alert and oriented times three. Pharynx, tongue, and gums pink and moist. Tongue is midline. Neck is supple, without lymphadenopathy. No thyromegaly. No goiter Chest clear to auscultation, without wheeze or retraction. Heart is regular. Grade 1-2/6 murmur. Abdomen benign. Bowel sounds positive. Labial incision site with packing. Extremities: No cyanosis, clubbing or edema. IMPRESSION AND PLAN: 1. Labial abscess. Status post irrigation and debridement. Continue antibiotics and pain medicine. 2. Insulin dependent diabetes with poor control. Increase Levemir to 32 twice a day. Metformin 1000 mg twice a day with food. Continue finger stick blood sugars. Diabetic education and diet education.
[2019-02-24] MEDS: atenoloL 50 MG TAB PO SCH (07:58)
[2019-02-24] MEDS: LEVEMIR (INSULIN DETEMIR) 1 UNITS/0.01ML SC SCH ×2 (07:58→20:53)
[2019-02-24] MEDS: metFORMIN (GLUCOPHAGE) 1000 MG TABLET PO SCH ×2 (07:59→17:14)
[2019-02-24] MEDS: ASPIRIN 81 MG ENTERIC TAB PO SCH (07:59)
[2019-02-24] MEDS: ARIPiprazole 10 MG TAB PO SCH (07:59)
[2019-02-24] MEDS: busPIRone 5 MG TAB PO SCH ×2 (07:59→20:52)
[2019-02-24] MEDS: oxyBUTYnin 5 MG TAB PO SCH ×2 (07:59→20:52)
[2019-02-24] MEDS: VITAMIN D 1,000 INTERNATIONAL UNITS TABLET PO SCH (08:00)
[2019-02-24] MEDS: FAMOTIDINE 20 MG TAB PO SCH (08:00)
[2019-02-24] MEDS: DYAZIDE 37.5/25 CAP (TRIAM/HCTZ) PO SCH (08:00)
[2019-02-24] MEDS: HumaLOG INSULIN (NovoLOG) PER UNIT SC SCH ×4 (08:01→20:53)
[2019-02-24] MEDS: PARoxetine 20 MG TAB PO SCH (08:01)
--- NOTE | 2019-02-24 08:35 | IPN ---
DATE: 02/24/2019 Shandra Lambert is seen on [address] [facility] while rounding for the hospitalist. Her primary care provider is [facility]. She has poorly controlled diabetes, hemoglobin A1c is over 14%, admitted with a labial abscess. Per nursing staff dressing changes are going without difficulty. Blood sugars are still quite elevated. PHYSICAL EXAMINATION: Afebrile. Vital signs stable, 130/83. Alert and conversant in no distress. Lungs clear. Heart regular rhythm. Abdomen soft, nontender. No peripheral edema. Labial area is packed. LABS: I do not see where she had any laboratory work ordered for today. Blood sugars are in the 200s. IMPRESSION: 1. Labial abscess. She did not grow out any Staphylococcus. I am stopping her vancomycin. Continue the Zosyn. Stop IV fluids as she is currently taking both IV fluids and diuretics, which is not rationale. 2. Diabetes. Poor control. Unfortunately no labs were ordered for today. Her Levemir dosage was increased yesterday . Will continue to augment this. 3. Hypertension. Getting both diuretics and IV fluids. I am stopping the saline. 4. Hypokalemia. Supplemental potassium has been given. 5. Hyperlipidemia. Continue atorvastatin 10 mg daily. 6. Various psychiatric disorders. Continue Abilify, BuSpar, Paxil and trazodone. 7. Hypothyroidism. Continue current dose of levothyroxine. She will probably be discharged towards the end of the week.
[2019-02-24] MEDS: POTASSIUM CHLORIDE 10 MEQ SR TABLET PO SCH ×2 (11:58→20:53)
[2019-02-24 14:00] VITALS: BP 137/91
[2019-02-24 20:38] VITALS: BP 138/92
[2019-02-24] MEDS: ATORVASTATIN 10 MG TAB PO SCH (20:52)
[2019-02-24] MEDS: lisinopriL 20 MG TAB PO SCH (20:52)
[2019-02-25] MEDS: ANEXSIA, NORCO 7.5MG/325MG TABLET(HYDROCODONE/APAP) PO PRN ×3 (03:30→20:52)
[2019-02-25] MEDS: LEVOTHYROXINE 125MCG TABLET (0.125MG) PO SCH (05:33)
[2019-02-25] MEDS: PIPERACILLIN/TAZOBACTAM SOD 3.375 GM in D5W MINI-BAG PLUS 50 ML IV SCH ×4 (05:34→22:37)
[2019-02-25 06:13] LABS: HEMATOCRIT 32.4 % (36.0-47.0); HEMOGLOBIN 10.7 g/dl (12.0-15.5); MEAN CORPUSCULAR HEMOGLOBIN 30.7 pg (27.0-33.0); MEAN CORPUSCULAR VOLUME 93.1 fl (80.0-96.0); PLATELET COUNT, AUTOMATED 249 10^3/uL (150-450); RED BLOOD COUNT 3.48 10^6/uL (4.00-5.40); WHITE BLOOD COUNT 9.1 10^3/uL (4.0-10.0)
[2019-02-25 06:15] VITALS: BP 125/81
[2019-02-25 06:59] LABS: BLOOD UREA NITROGEN 5 MG/DL (7-18); CALCIUM LEVEL 9.5 MG/DL (8.5-10.1); CARBON DIOXIDE LEVEL 31 MEQ/L (21-32); CHLORIDE LEVEL 107 MEQ/L (98-107); GLOMERULAR FILTRATION RATE > 60.0 (>58); GLUCOSE, FASTING 100 MG/DL (70-100); POTASSIUM SERUM 3.8 MEQ/L (3.5-5.1); SODIUM LEVEL 143 MEQ/L (136-145)
[2019-02-25] MEDS: HumaLOG INSULIN (NovoLOG) PER UNIT SC SCH ×4 (07:30→20:50)
[2019-02-25] MEDS: FAMOTIDINE 20 MG TAB PO SCH (08:20)
[2019-02-25] MEDS: VITAMIN D 1,000 INTERNATIONAL UNITS TABLET PO SCH (08:20)
[2019-02-25] MEDS: ASPIRIN 81 MG ENTERIC TAB PO SCH (08:21)
[2019-02-25] MEDS: metFORMIN (GLUCOPHAGE) 1000 MG TABLET PO SCH ×2 (08:21→17:25)
[2019-02-25] MEDS: POTASSIUM CHLORIDE 10 MEQ SR TABLET PO SCH ×2 (08:21→20:52)
[2019-02-25] MEDS: DYAZIDE 37.5/25 CAP (TRIAM/HCTZ) PO SCH (08:21)
[2019-02-25] MEDS: PARoxetine 20 MG TAB PO SCH (08:21)
[2019-02-25] MEDS: busPIRone 5 MG TAB PO SCH ×2 (08:22→20:51)
[2019-02-25] MEDS: LEVEMIR (INSULIN DETEMIR) 1 UNITS/0.01ML SC SCH ×2 (08:22→20:51)
[2019-02-25] MEDS: oxyBUTYnin 5 MG TAB PO SCH ×2 (08:23→20:51)
[2019-02-25] MEDS: atenoloL 50 MG TAB PO SCH (08:23)
[2019-02-25] MEDS: ARIPiprazole 10 MG TAB PO SCH (08:23)
--- NOTE | 2019-02-25 08:35 | IPN ---
DATE: 02/25/2019 Shandra Lambert is feeling better. Seems to have turned a corner. She is afebrile. Her white count is down. Her blood sugars are better controlled. She has decreasing drainage from her labial abscess which was incised and drained. PHYSICAL EXAMINATION: 125/81, afebrile. General appearance: Alert, conversant. No distress. Lungs: Clear. Heart: Regular rhythm. Abdomen: Soft, nontender. Extremities: No peripheral edema. LABS: White count is down to 9.1. Hemoglobin 10.7, electrolytes unremarkable. Blood sugars have been less than 200 since yesterday. IMPRESSION: 1. Labial abscess. Continue IV Zosyn. Can probably be discharged tomorrow on something such as Augmentin. 2. Diabetes. Blood sugars are better controlled on augmented dose of basal insulin. Continue sliding scale. 3. Hypertension. Blood pressure is under good control on current regimen. 4. Hypokalemia. Resolved with supplemental potassium. 5. Hypothyroidism. Continue levothyroxine. 6. Various psychiatric disorders. Stable on her current regimen. Expect discharge tomorrow.
[2019-02-25 15:34] VITALS: BP 141/89
[2019-02-25] MEDS: KETOROLAC 30 MG/ML VIAL (J1885) IV PRN (15:46)
[2019-02-25 20:18] VITALS: BP 138/86
[2019-02-25] MEDS: lisinopriL 20 MG TAB PO SCH (20:51)
[2019-02-25] MEDS: ATORVASTATIN 10 MG TAB PO SCH (20:51)
[2019-02-26] MEDS: LEVOTHYROXINE 125MCG TABLET (0.125MG) PO SCH (05:51)
[2019-02-26] MEDS: PIPERACILLIN/TAZOBACTAM SOD 3.375 GM in D5W MINI-BAG PLUS 50 ML IV SCH (05:52)
[2019-02-26 06:23] VITALS: BP 154/97
[2019-02-26 07:23] LABS: HEMATOCRIT 32.4 % (36.0-47.0); HEMOGLOBIN 10.5 g/dl (12.0-15.5); MEAN CORPUSCULAR HEMOGLOBIN 29.8 pg (27.0-33.0); MEAN CORPUSCULAR HGB CONC 32.4 g/dl (32.0-36.5); PLATELET COUNT, AUTOMATED 267 10^3/uL (150-450); RED BLOOD COUNT 3.52 10^6/uL (4.00-5.40); WHITE BLOOD COUNT 8.3 10^3/uL (4.0-10.0)
[2019-02-26 07:48] LABS: BLOOD UREA NITROGEN 8 MG/DL (7-18); C REACTIVE PROTEIN QUANTITATIV 8.14 MG/DL (0.00-0.30); CALCIUM LEVEL 9.4 MG/DL (8.5-10.1); CARBON DIOXIDE LEVEL 29 MEQ/L (21-32); CHLORIDE LEVEL 104 MEQ/L (98-107); CREATININE FOR GFR 0.74 MG/DL (0.55-1.30); GLOMERULAR FILTRATION RATE > 60.0 (>58); GLUCOSE, FASTING 124 MG/DL (70-100); POTASSIUM SERUM 3.5 MEQ/L (3.5-5.1); SODIUM LEVEL 140 MEQ/L (136-145)
[2019-02-26 08:14] VITALS: BP 154/97
[2019-02-26] MEDS: busPIRone 5 MG TAB PO SCH (08:14)
[2019-02-26] MEDS: atenoloL 50 MG TAB PO SCH (08:14)
[2019-02-26] MEDS: PARoxetine 20 MG TAB PO SCH (08:15)
[2019-02-26] MEDS: ARIPiprazole 10 MG TAB PO SCH (08:15)
[2019-02-26] MEDS: oxyBUTYnin 5 MG TAB PO SCH (08:15)
[2019-02-26] MEDS: ASPIRIN 81 MG ENTERIC TAB PO SCH (08:15)
[2019-02-26] MEDS: FAMOTIDINE 20 MG TAB PO SCH (08:15)
[2019-02-26] MEDS: DYAZIDE 37.5/25 CAP (TRIAM/HCTZ) PO SCH (08:15)
[2019-02-26] MEDS: VITAMIN D 1,000 INTERNATIONAL UNITS TABLET PO SCH (08:15)
[2019-02-26] MEDS: metFORMIN (GLUCOPHAGE) 1000 MG TABLET PO SCH (08:15)
[2019-02-26] MEDS: POTASSIUM CHLORIDE 10 MEQ SR TABLET PO SCH (08:15)
[2019-02-26] MEDS: LEVEMIR (INSULIN DETEMIR) 1 UNITS/0.01ML SC SCH (08:16)
[2019-02-26] MEDS: HumaLOG INSULIN (NovoLOG) PER UNIT SC SCH ×2 (08:16→13:05)
[2019-02-26] MEDS ORDERED: AUGMENTIN 875 MG TAB PO SCH (09:00)
--- NOTE | 2019-02-26 12:05 | DS.PDOC ---
Discharge Summary General Date of Admission Feb 21, 2019 at 01:34 Date of Discharge 02/26/2019 Attending Physician: HARITHA HERNADEZ MD Specialist/Consultants Involve: SHARON VASQUEZ MD Discharge Summary PROCEDURES PERFORMED DURING STAY: Incision and drainage of R groin abscess on 02/21/2019 ADMITTING DIAGNOSES: 1. Right groin abscess DISCHARGE DIAGNOSES: 1. Right groin abscess 2. Diabetes 3. Moderate obesity 4. bipolar disorder 5. Hypothyroidism 6. Hyperlipidemia 7. Hypertension COMPLICATIONS/CHIEF COMPLAINT: Groin pain HISTORY OF PRESENT ILLNESS: 48 year old woman with poorly controlled insulin dependent diabetes, morbid obesity, poor hygiene who presented to the ED on 02/20/19 with complaints of right groin swelling in the setting of a recent diagnosis of a right labial abscess that was drained at an urgent care setting 4 days prior to the ED presentation and had been placed on keflex. HOSPITAL COURSE: She presented with worsening severe groin pain with increased swelling and foul smelling drainage at the I&D site without any reports of fevers or chills. In the ED, she was found to have mild leukocytosis, elevated CRP to 40 and had a soft tissue swelling on the right groin. She had a CT A/P that was initially read as concerning for a possible incarcerated inguinal hernia and was started on IV antibiotics and admitted to medicine with a surgery consult. On evaluation by surgery by Dr. Vasquez, his initial concern was for a necrotizing soft tissue infection given the right groin cellulitis and soft tissue infection that started from a right labial abscess, poor glycemic control and poor hygiene and noted a hardened ball at the suprapubic area that did not change with Valsalva and was therefore unlikely a hernia and likely a self-contained collection or deep soft tissue induration that spread out from the labial infection. She had an incision and drainage by Dr. Vasquez on 02/21/2019 and cultures were sent that grew pansensitive mixed suni including coag negative staph, corynebacterium, lactobacilli and aerococcus viridans. She had zosyn for 7 days and was switched to augmentin on 02/26/2019 to complete a 10d course. Her leukocytosis resolved, pain improved, and blood cultures were negative. She is now being discharged home with VNA services for Q2D dressing changes. DISCHARGE MEDICATIONS: Please see below. ALLERGIES: Please see below. PHYSICAL EXAMINATION ON DISCHARGE: VITAL SIGNS: Please see below. PHYSICAL EXAMINATION: VITALS SIGNS: Please see below. GENERAL APPEARANCE: Laying in bed comfortably SKIN: Warm and dry. HEENT: Normocephalic, slightly disheveled appearance, poor dentition NECK: Supple, no thyromegaly or JVD LUNGS: Clear to auscultation bilaterally. No wheezing or crackles HEART: Regular rate and rhythm with no murmurs appreciated. ABDOMEN: Abdomen is obese with large pannus with clean dry dressing, nontender on palpation EXTREMITIES: WWP, no edema LABORATORY DATA: Please see below. IMAGING: CT abdomen and pelvis 1. There is a diffuse decrease in hepatic parenchymal density, consistent with fatty infiltration. 2. There has been a cholecystectomy. 3. There is mild splenomegaly with a maximum span of 13.3 centimeters. No focal abnormalities demonstrated. 4. Inflammatory mass in the right inguinal region appears to represent a grossly inflamed/infected inguinal hernia containing markedly inflamed fat protruding into the hernia sac. Marked edema in the surrounding soft tissues and thickening and inflammation of the lower anterior abdominal wall muscles. PROGNOSIS: Good ACTIVITY: As tolerated. DIET: Consistent carb, 2g sodium DISCHARGE PLAN: Home with VNA services DISPOSITION: Home DISCHARGE INSTRUCTIONS: 1. . ITEMS TO FOLLOWUP ON ON OUTPATIENT: 1. R groin abscess and cellulitis resolution DISCHARGE CONDITION: Stable TIME SPENT ON DISCHARGE: 43 minutes. Vital Signs/I&Os Vital Signs Date Time Temp Pulse Resp B/P (MAP) Pulse Ox O2 Delivery O2 Flow Rate FiO2 02/26/19 08:14 82 154/97 02/26/19 06:23 97.6 20 96 02/25/19 20:18 Room Air 02/21/19 15:12 2.0 I&O- Last 24 Hours up to 6 AM 02/26/19 05:59 Intake Total 1050 ml Output Total 0 ml Balance 1050 ml Laboratory Data Labs 24H Laboratory Tests 2 02/25/19 12:17: Bedside Glucose (Misc Panel) 172H 02/25/19 16:47: Bedside Glucose (Misc Panel) 148H 02/25/19 20:21: Bedside Glucose (Misc Panel) 186H 02/26/19 06:40: Nucleated Red Blood Cells % (auto) 0.0, Anion Gap 7L, Glomerular Filtration Rate > 60.0, Calcium Level 9.4, C-Reactive Protein, Quantitative 8.14H CBC/BMP Laboratory Tests 02/26/19 06:40 FSBS Laboratory Tests Test 02/25/19 12:17 02/25/19 16:47 02/25/19 20:21 Range/Units Bedside Glucose (Misc Panel) 172 148 186 70-105 MG/DL Microbiology Microbiology 02/21/19 Gram Stain - Final, Resulted 02/21/19 Wound Culture - Final, Resulted Aerococcus Viridans 02/21/19 Anaerobic Culture, Resulted Pending 02/21/19 Gram Stain - Final, Complete 02/21/19 Wound Culture - Final, Complete Staphylococcus Sp Coag Neg Corynebacterium Species Lactobacillus Species 02/20/19 Urine Culture - Final, Complete 02/20/19 Blood Culture - Final, Complete NO GROWTH AFTER 5 DAYS 02/20/19 Blood Culture - Final, Complete NO GROWTH AFTER 5 DAYS Discharge Medications Scheduled Aripiprazole (Abilify) 10 Mg Tab, 10 MG PO DAILY, (Reported) Aspirin (Aspirin EC) 81 Mg Tabec, 81 MG PO DAILY, (Reported) Atenolol (Atenolol) 100 Mg Tab, 100 MG PO DAILY, (Reported) Atorvastatin Calcium (Atorvastatin Calcium) 10 Mg Tablet, 10 MG PO QHS, (Reported) Buspirone HCl (Buspirone HCl) 15 Mg Tab, 15 MG PO BID, (Reported) Cephalexin (Cephalexin) 500 Mg Capsule, 500 MG PO BID, (Reported) Cholecalciferol (Vitamin D3) (Vitamin D3) 2,000 Unit Tablet, 2,000 UNIT PO DAILY, (Reported) Dulaglutide (Trulicity) 1.5 Mg/0.5 Ml Pen.injctr, 1.5 MG SC 1XWK, (Reported) MON @ 1500 Famotidine (Famotidine) 40 Mg Tab, 40 MG PO DAILY, (Reported) Fenofibrate (Fenofibrate) 160 Mg Tab, 160 MG PO QHS, (Reported) Insulin Glargine,Hum.rec.anlog (Basaglar Kwikpen U-100) 100 Unit/Ml Inj, 45 UNIT SC QHS, (Reported) Levothyroxine Sodium (Synthroid) 125 Mcg Tab, 125 MCG PO DAILY, (Reported) Lisinopril (Lisinopril) 20 Mg Tab, 20 MG PO QHS, (Reported) Metformin HCl (Metformin HCl) 1,000 Mg Tab, 1,000 MG PO BID, (Reported) Norethindrone (Deblitane) 0.35 Mg Tablet, 0.35 MG PO QHS, (Reported) Oxybutynin Chloride (Oxybutynin Chloride) 5 Mg Tab, 5 MG PO BID, (Reported) Paroxetine HCl (Paroxetine HCl) 40 Mg Tablet, 40 MG PO DAILY, (Reported) Triamterene/Hydrochlorothiazid (Triamterene-Hctz 37.5-25 mg Cp) 1 Cap Cap, 1 CAP PO DAILY, (Reported) Scheduled PRN Tizanidine HCl (Tizanidine HCl) 4 Mg Tablet, 4 MG PO TID PRN for MUSCLE SPASMS, (Reported) Trazodone HCl (Trazodone HCl) 50 Mg Tablet, 50 MG PO QHS PRN for INSOMNIA, (Reported) Allergies Coded Allergies: No Known Allergies (Unverified , 02/20/19) HARITHA HERNADEZ MD Feb 26, 2019 12:05
[2019-02-26] MEDS ORDERED: AMOX875T2 PO (12:12)
[2019-02-26] MEDS ORDERED: NORC1TAB7 PO ×2 (16:44→17:06)
--- NOTE | 2019-03-19 03:47 | ROOPDOC ---
[facility] Report Of Operation Report of Operation DATE OF PROCEDURE: 02/21/2019 PREPROCEDURE DIAGNOSES: Right groin/vulvar abscess. POSTPROCEDURE DIAGNOSES: Right follow her abscess extending to the right groin and mons pubis PROCEDURE: Incision and drainage right vulvar abscess, debridement of indurated soft tissue at the groin and mons pubis. SURGEON: Nikita Vasquez MD WARRANT CLERK: ANESTHESIA: Gen. anesthesia with LMA. ESTIMATED BLOOD LOSS: Approximately 20 mL. COMPLICATIONS: None. REMARKS: This is a 48-year-old female with diabetes with extensive cellulitis, soft tissue infection that is extending to the right groin and mons pubis coming from her fall for abscess admitted through the emergency department. Her blood sugars were uncontrolled.. PROCEDURE NOTE: Right vulvar abscess which was only partially drained in the emergency room. Soft tissue induration as an extension of the vulvar abscess at the right groin and right side of the mons pubis. DESCRIPTION OF PROCEDURE: Patient is on multiple antibiotics for a diabetic infection. She was brought to the operating room, placed supine on the table. Compression boots placed on both lower extremities for DVT prophylaxis. Gen. endotracheal anesthesia was started using a laryngeal mask airway device. Her preoperative dressings were removed and her lower abdomen, groin, perineum and thigh was prepped and draped in the usual sterile fashion. We paused for a surgical timeout using both pre-incision safety checklist to verify correct patient, procedure site and additional clinical information prior to beginning the procedure She has extensive erythema but seems to be starting to recede with the antibiotics this is extending to the upper thigh, groin and lower abdomen area. She has moderate hard and soft tissue induration on her right groin above the medial portion of the groin crease extending to a bulky mons pubis. Her lower abdominal pannus is loose and is draping on top of the groin area. At the external fall while there is a punctate hole from the attempted aspiration or drainage in the emergency room. When placing pressure on the groin area I could still elicit purulent drainage from this. I liberally placed local anesthesia with 1% lidocaine and 1/4% Marcaine mixture around the vulvar area and extended the incision roughly about 4 cm vertically and started draining foul-smelling purulent fluid. Cultures were obtained. I could probe the vulvar abscess pocket with my finger and was extending this into the groin area but I did not get much drainage at the groin area. I then created a counter incision up above between the mons pubis and groin area to see if I could get any further drainage and set up extending the incision from the follow-up. Aside from small bleeding I did not get much drainage from the counterincision. I was able to tunneling connect both incisions together. There was some necrotic tissue most likely from the liquefied fat tissue from the swelling that the debrided sharply and removed with Bovie cautery. This was temporarily packed for hemostasis and watched. Once I was satisfied I then left a 1 inch iodoform gauze threading through both incisions for packing as well as for maintaining hemostasis. Bulky gauze dressings and ABG pads were then used to cover the incision held in place with a postoperative underwear. Patient remained hemodynamically stable throughout the procedure she was then brought to the recovery room following full recovery from her anesthesia and removal of the LMA. NIKITA VASQUEZ MD Mar 19, 2019 03:47
== END 2019-02-26 14:45 | disposition home health service (06) | DRG 518 ==
LOC: M ED 18:30 → M ED INP 02-21 01:34 → M MS5PR 02-21 02:47
PROVIDERS: ADMIT Internal Medicine; ATTEND Internal Medicine
PROC: 0U9M0ZZ Drainage of Vulva, Open Approach (ICD-10-PCS; principal; 2019-02-21 16:00)
DX: N76.4 Abscess of vulva (principal); L03.314 Cellulitis of groin; I10 Essential (primary) hypertension; E11.9 Type 2 diabetes mellitus without complications; E78.5 Hyperlipidemia, unspecified; F31.9 Bipolar disorder, unspecified; E87.6 Hypokalemia; E03.9 Hypothyroidism, unspecified; E66.9 Obesity, unspecified; Z87.891 Personal history of nicotine dependence; Z90.49 Acquired absence of other specified parts of digestive tract; Z79.82 Long term (current) use of aspirin; Z79.4 Long term (current) use of insulin; Z79.899 Other long term (current) drug therapy; Z68.33 Body mass index [BMI] 33.0-33.9, adult

== ENCOUNTER → 2019-04-29 | Outpatient (REF) | payer OTHER ==
[~2019-04-29] MED LIST changes: +AMOX875T2 PO; +ATOR1TAB19 PO; +CEPH500C PO; +DEBL1TAB PO; +NORC1TAB7 PO; +PARO40TA2 PO; +TIZA4TAB4 PO; +TRAZ-252 PO; +TRUL0.5I INJ; +TRUL0.5I SC; +VITA200010 PO
[2019-04-29 17:04] LABS: HEMOGLOBIN A1c 9.1 %
== END ==
LOC: M LAB REF 12:27
PROVIDERS: ATTEND Physician Assistant
DX: E11.65 Type 2 diabetes mellitus with hyperglycemia (principal)

== ENCOUNTER → 2019-07-08 | Outpatient (REF) | payer OTHER ==
[~2019-07-08] MED LIST changes: +ALDA25TA2 PO; +ALDA50TA2 PO; +AMLO10TA PO; +AMLO1TAB25 PO; +ARIP1TAB PO; -ASPI81TA85 PO; +ASPI81TA86 PO; +AUGM875T28 PO; +BACITAB PO; +BD P31MI2 SC; +BUSP30TA; +BUSP30TA PO; +CYCL-707 PO; +GABA-282 PO; -GABA-843 PO; +LEVO150T7; -LISI-538 PO; +LISI20TA33 PO; +MED REC COMMENT; +PARO40TA2; +PARO40TA3 PO; +SELF1KIT MC; +SYNT150T PO; +TRAZ-186 PO; +TRAZ-252
== END ==
LOC: M LAB REF 16:06
PROVIDERS: ATTEND Surgery
DX: L02.215 Cutaneous abscess of perineum (principal); L02.214 Cutaneous abscess of groin

== ENCOUNTER → 2019-09-17 | Outpatient (CLI) | payer SELFPAY ==
[~2019-09-17] MED LIST changes: -ALDA25TA2 PO; -ALDA50TA2 PO; -AMLO10TA PO; -AMLO1TAB25 PO; -ARIP1TAB PO; -AUGM875T28 PO; -BACITAB PO; -BD P31MI2 SC; -BUSP30TA; -BUSP30TA PO; -CYCL-707 PO; -GABA-282 PO; +GABA-843 PO; -LEVO150T7; +LISI-538 PO; -LISI20TA33 PO; -MED REC COMMENT; -PARO40TA2; -PARO40TA3 PO; -SELF1KIT MC; -SYNT150T PO; -TRAZ-186 PO; -TRAZ-252
== END ==
LOC: M LABSMTC 12:44
PROVIDERS: ATTEND Pediatrics
DX: Z20.828 Contact with and (suspected) exposure to other viral communicable diseases (principal); Z11.59 Encounter for screening for other viral diseases

== ENCOUNTER 2020-02-27 04:44 | Inpatient (IN) | payer OTHER ==
[~2020-02-27] VITALS: Ht 165.1 cm; Wt 88.8 kg
[2020-02-27] VITALS (42 sets, daily range): BP systolic 84–246; BP diastolic 50–134
[2020-02-27] MEDS ORDERED: NS 1,000 ML IV ONE (05:00)
[2020-02-27 05:17] LABS: VENOUS BASE EXCESS -1.1 (-2.0-2.0); VENOUS HCO3 27.2 MEQ/L (23.0-27.0); VENOUS PARTIAL PRESSURE O2 32.1 mmHg (30.0-50.0); VENOUS PH 7.281 UNITS (7.330-7.430); VENOUS STANDARD HCO3 22.7 MEQ/L
[2020-02-27 05:20] LABS: BASO # 0.1 10^3/uL (0.0-0.2); BASO % 0.6 % (0.0-1.0); EOS # 0.1 10^3/uL (0.0-0.5); EOS % 0.5 % (0.0-3.0); HEMATOCRIT 44.7 % (36.0-47.0); HEMOGLOBIN 15.5 g/dl (12.0-15.5); LYMPH # 1.5 10^3/uL (1.5-5.0); LYMPH % 14.2 % (24.0-44.0); MEAN CORPUSCULAR HEMOGLOBIN 30.3 pg (27.0-33.0); MEAN CORPUSCULAR HGB CONC 34.7 g/dl (32.0-36.5); MEAN CORPUSCULAR VOLUME 87.3 fl (80.0-96.0); MONO # 0.4 10^3/uL (0.0-0.8); MONO % 3.7 % (0.0-5.0); NEUTROPHILS # 8.7 10^3/uL (1.5-8.5); NEUTROPHILS % 80.2 % (36.0-66.0); PLATELET COUNT, AUTOMATED 363 10^3/uL (150-450); RED BLOOD COUNT 5.12 10^6/uL (4.00-5.40); WHITE BLOOD COUNT 10.8 10^3/uL (4.0-10.0)
[2020-02-27] MEDS ORDERED: NS IV ONE (05:30)
[2020-02-27 05:53] LABS: OSMOLALITY SERUM 321 MOSM/KG (275-295)
[2020-02-27] MEDS: hydrALAZINE 20MG/ML 1ML VIAL (J0360 PER 20MG) IV SCH ×3 (06:00→12:51)
[2020-02-27 06:07] LABS: ACETAMINOPHEN LEVEL < 2.0 UG/ML (10.0-30.0); ACETONE/KETONE 1.63 MG/DL (<2.81); ALBUMIN 3.1 GM/DL (3.2-5.2); ALT/SGPT 40 U/L (12-78); BILIRUBIN,DIRECT 0.2 MG/DL (0.0-0.2); BILIRUBIN,TOTAL 0.6 MG/DL (0.2-1.0); BLOOD UREA NITROGEN 16 MG/DL (7-18); CALCIUM LEVEL 9.9 MG/DL (8.5-10.1); CARBON DIOXIDE LEVEL 30 MEQ/L (21-32); CHLORIDE LEVEL 92 MEQ/L (98-107); CK-MB VALUE MASS 1.6 NG/ML (<3.6); CPK CREATINE PHOSPHOKINASE 78 U/L (26-192); CREATININE FOR GFR 1.49 MG/DL (0.55-1.30); ETHYL ALCOHOL (ETHANOL) < 0.003 % (0.000-0.010); GLOMERULAR FILTRATION RATE 39.8 (>58); GLUCOSE, FASTING 660 MG/DL (70-100); MB/CK RELATIVE INDEX 2.05 (< OR =4); POTASSIUM SERUM 3.3 MEQ/L (3.5-5.1); SALICYLATE LEVEL < 1.7 MG/DL (5.0-30.0); SODIUM LEVEL 130 MEQ/L (136-145); TOTAL PROTEIN 8.2 GM/DL (6.4-8.2); TROPONIN I 0.09 NG/ML (< 0.10)
[2020-02-27] MEDS ORDERED: HumuLIN R (REGULAR) INSULIN (NovoLIN R) **100U/ML** PER UNIT IV ONE (06:15)
[2020-02-27] MEDS ORDERED: KCL 10MEQ/100ML SWI (KRUN) 10 MEQ in IV 1 EA IV ONE (06:15)
[2020-02-27] MEDS ORDERED: POTASSIUM CHLORIDE 10 MEQ SR TABLET PO ONE (06:15)
[2020-02-27 06:28] LABS: RSV AMPLIFICATION NEGATIVE (NEGATIVE)
[2020-02-27] MEDS ORDERED: LORazepam 2 MG/ML VIAL IV STA ×2 (06:28→10:58)
[2020-02-27 06:54] LABS: ABG BASE EXCESS -2.3 (-2.0-2.0); ABG HCO3 20.5 MEQ/L (22.0-26.0); ABG O2 SATURATION 98.6 % (95.0-99.0); ABG PARTIAL PRESSURE CO2 30.1 mmHg (35.0-45.0); ABG PARTIAL PRESSURE O2 134.8 mmHg (75.0-100.0); ABG STANDARD HCO3 22.6 MEQ/L (22.0-26.0); ABG TOTAL CO2 21.4 MEQ/L (22.0-29.0)
[2020-02-27 07:11] LABS: FREE T4 0.83 NG/DL (0.76-1.46)
[2020-02-27] MEDS ORDERED: MIDAZOLAM INJ 2MG/2ML VIAL (J2250 PER 1MG) IV STA (07:25)
[2020-02-27 07:26] LABS: AMPHETAMINES LEVEL URINE NEGATIVE (NEGATIVE); BARBITURATES URINE NEGATIVE (NEGATIVE); BENZODIAZEPINES URINE NEGATIVE (NEGATIVE); CANNABINOIDS URINE POSITIVE (NEGATIVE); COCAINE METABOLITE URINE NEGATIVE (NEGATIVE); METHADONE URINE NEGATIVE (NEGATIVE); OPIATES URINE NEGATIVE (NEGATIVE); PHENCYCLIDINE URINE NEGATIVE (NEGATIVE)
[2020-02-27] MEDS ORDERED: LABETALOL 100MG/20ML VIAL IV STA (07:39)
--- NOTE | 2020-02-27 08:22 | REP ---
INDICATION: ams COMPARISON: 06/07/2017 TECHNIQUE: Portable AP view of the chest FINDINGS: The mediastinum and cardiac silhouette are stable and within normal limits for portable technique. The lung jett are clear without acute consolidation, effusion, or pneumothorax. Skeletal structures are intact. IMPRESSION: No acute cardiopulmonary process appreciated. <Electronically signed by Heron Salvador > 02/27/20 0818
[2020-02-27] MEDS ORDERED: MED REC COMMENT (08:24)
[2020-02-27] MEDS ORDERED: ARIP1TAB PO (08:24)
[2020-02-27] MEDS ORDERED: BUSP30TA PO (08:24)
[2020-02-27] MEDS ORDERED: LISI-538 PO (08:24)
[2020-02-27] MEDS ORDERED: TRAZ-186 PO (08:24)
[2020-02-27] MEDS ORDERED: CYCL-707 PO (08:24)
[2020-02-27] MEDS ORDERED: DEBL1TAB PO (08:24)
[2020-02-27] MEDS ORDERED: PARO40TA3 PO (08:24)
--- NOTE | 2020-02-27 08:30 | REPVR ---
PROCEDURE INFORMATION: Exam: CT Head without Contrast Exam date and time: 02/27/20 (7:47am) Age: 49 years old Clinical indication: Fall. Blunt trauma. AMS. TECHNIQUE: Imaging protocol: Computed tomography of the head without contrast. Radiation optimization: All CT scans at this facility use at least one of these dose optimization techniques: automated exposure control; mA and/or kV adjustment per patient size (includes targeted exams where dose is matched to clinical indication); or iterative reconstruction. COMPARISON: CT HEAD of 06/07/17 FINDINGS: Brain: Niqm-[id number]-[id number] atrophy (advanced for the stated age of this patient). No acute hemorrhage. No mass effect. Cerebral ventricles: No ventriculomegaly. Bones/joints: Unremarkable. No acute fracture. Paranasal sinuses: Visualized sinuses are unremarkable. No air-fluid levels. Mastoid air cells: Visualized mastoid air cells are well aerated. Soft tissues: Unremarkable. IMPRESSION: No acute intracranial pathology is appreciated. Atrophic changes, which have progressed since May 2017. Electronically signed by: Ariana Orozco On 02/27/2020 08:30:03 AM
[2020-02-27] MEDS ORDERED: ENALAPRILAT INJ 2.5MG/2ML VIAL IV ONE (09:30)
[2020-02-27] MEDS ORDERED: HALOPERIDOL 5MG/ML VIAL (J1630 PER 1) IV ONE (11:00)
[2020-02-27] MEDS: ENOXAPARIN 40MG/0.4ML SYRINGE (J1650 PER 10MG) SC SCH (11:04)
[2020-02-27] MEDS ORDERED: GLUCOSE 4GM CHEW TABLET PO PRN (11:15)
[2020-02-27] MEDS ORDERED: DEXTROSE 50% 50 ML SYRINGE IV PRN (11:15)
[2020-02-27] MEDS ORDERED: GLUCAGON INJ 1MG VIAL SC PRN (11:15)
[2020-02-27] MEDS ORDERED: HumaLOG INSULIN (NovoLOG) PER UNIT SC SCH (11:15)
[2020-02-27 11:17] LABS: BLOOD UREA NITROGEN 14 MG/DL (7-18); CARBON DIOXIDE LEVEL 26 MEQ/L (21-32); CHLORIDE LEVEL 107 MEQ/L (98-107); CREATININE FOR GFR 1.02 MG/DL (0.55-1.30); GLOMERULAR FILTRATION RATE > 60.0 (>58); GLUCOSE, FASTING 378 MG/DL (70-100); MAGNESIUM LEVEL 1.6 MG/DL (1.8-2.4); POTASSIUM SERUM 3.5 MEQ/L (3.5-5.1); SODIUM LEVEL 140 MEQ/L (136-145)
[2020-02-27] MEDS ORDERED: LORazepam 2 MG/ML VIAL IV PRN (11:30)
[2020-02-27] MEDS ORDERED: HALOPERIDOL 5MG/ML VIAL (J1630 PER 1) IV PRN (11:30)
[2020-02-27] MEDS ORDERED: LEVEMIR (INSULIN DETEMIR) 1 UNITS/0.01ML SC ONE (12:00)
[2020-02-27] MEDS: HumaLOG INSULIN (NovoLOG) PER UNIT SC SCH ×3 (12:45→23:37)
[2020-02-27] MEDS ORDERED: ACETAMINOPHEN *IV* 1,000 MG in IV 1 EA IV ONE (13:00)
[2020-02-27] MEDS ORDERED: MAG SULF 1GM/100ML (MAG RUN) 1 GM in IV 1 EA IV ONE (13:00)
[2020-02-27] MEDS ORDERED: diazePAM 10MG/2ML SYRINGE (J3360 PER 5MG) IV ONE (13:00)
[2020-02-27] MEDS: PIPERACILLIN/TAZOBACTAM SOD 3.375 GM in D5W MINI-BAG PLUS 50 ML IV SCH ×2 (13:44→21:25)
--- NOTE | 2020-02-27 13:44 | HPEPDOC ---
General Date of Admission Feb 27, 2020 at 09:24 Date of Service: Feb 27, 2020 Chief Complaint The patient is a 49-year-old female admitted with a reason for visit of Acute Metabolic Encephalopathy. Source: RN/, Old records History of Present Illness 49 year old female brought to the ED for altered mental status. Patient agitated, thrashing around not talking. All history taken from ED staff, old records and mother Yamila. I spoke with Yamila over the phone. Patient lives with her mother (Yamila). Yamila reported that patient was started on a new medication 3 days ago. Yesterday afternoon patient complained of feeling sick. She was nauseous and did not have much appetite. She did have a small amount of dinner. In the evening patient was otherwise Ok. They were sitting watching TV and speaking. Last spoke at around 1 am when patient was at her baseline. At 4:30 am Yamila heard abnormal noises from Martina's room so she went to check on her and found her sitting on the floor rocking away , mumbling sounds which she could not understand, confused, thrashing around. She had urinary incontinence on the floor. She called the EMS. She reports patient takes her medications regularly as prescribed and does not get confused about them. She does say that patient does not check her sugars regularly In the ED Patient was found to be severely hypertensive with BP of 240/120, hyperglycemic with Sugars> 600. CT head was negative for any acute events. She was admitted for Acute metabolic encephalopathy, hypertensive emergency, uncontrolled hyperglycemia. Home Medications Scheduled Aripiprazole (Aripiprazole) 10 Mg Tablet, 10 MG PO DAILY, (Reported) Buspirone HCl (Buspirone HCl) 30 Mg Tablet, 30 MG PO BID, (Reported) Lisinopril (Lisinopril) 20 Mg Tablet, 20 MG PO QHS, (Reported) Norethindrone (Deblitane) 0.35 Mg Tablet, 0.35 MG PO QHS, (Reported) Paroxetine HCl (Paroxetine) 40 Mg Tablet, 40 MG PO QHS, (Reported) Trazodone HCl (Trazodone HCl) 50 Mg Tablet, 50 MG PO QHS, (Reported) CAN TAKE UP TO 100MG Scheduled PRN Cyclobenzaprine HCl (Cyclobenzaprine HCl) 10 Mg Tablet, 10 MG PO TID PRN for MUSCLE SPASMS, (Reported) Miscellaneous Medications [Med Rec Comment] , (Reported) LIST OBTAINED FROM [facility], UNABLE TO VERIFY MEDS WITH PATIENT OR FAMILY Allergies Coded Allergies: No Known Allergies (Unverified , 02/20/19) Past Medical History Medical History Insulin-dependent diabetes mellitus Diabetic neuropathy Depression and anxiety Bipolar disorder Hypercholesterolemia Hypertriglyceridemia Gastroesophageal reflux disease Vitamin D deficiency Coronary artery disease Hypertension Sleep apnea Urinary urgency Hypothyroidism Surgical History Cholecystectomy Vaginal deliveries 3 Left arm surgeries 3 Left Humerus # had plates and screws in her left arm Family History Father: diabetes mellitus Mother: diabetes mellitus, chronic obstructive pulmonary disease 1 Brother: Down's syndrome 1 Sister: history of blood clots Social History * Smoker: former Smoker Alcohol: Denies Drugs: denies A-FIB/CHADSVASC A-FIB History Current/History of A-Fib/PAF?: No Review of Systems Constitutional: Denies: Chills, Fever Skin: Reports: Bruising (on the rright knee, right arm, right thigh); Denies: Rash, Lesions, Breakdown Pulmonary: Denies: Dyspnea, Cough Gastrointestinal: Denies: Vomiting, Diarrhea Genitourinary: Reports: Incontinence Hematologic: Reports: Bruising Neurological: Reports: Confusion Physical Examination General Exam: Positive: Other (confused and agitated) Eye Exam: Positive: Conjunctiva & lids normal, Other Eye Symptoms (pupils right 4 mm, left 3 mm, ); Negative: Sclera icteric Neck Exam: Positive: Supple; Negative: JVD, thyromegaly Chest Exam: Positive: Clear to auscultation, Normal air movement Heart Exam: Positive: Tachycardic, Regular Rhythm, Normal S1, Normal S2; Negative: Murmurs, Rubs Telemetry: Positive: No significant arrhythmia Abdomen Exam: Positive: Normal bowel sounds, Soft; Negative: Hepatospenomegaly Extremity Exam: Negative: Clubbing, Cyanosis, Edema Neuro Exam: Positive: Other (tremors. does not seem to have any focal neurodeficit, confused, does nto follow commands. ) Vital Signs Vital Signs Date Time Temp Pulse Resp B/P (MAP) Pulse Ox O2 Delivery O2 Flow Rate FiO2 02/27/20 11:13 110 18 196/114 (141) 96 Room Air 02/27/20 06:14 97.9 Laboratory Data Labs 24H Laboratory Tests 2 02/27/20 04:59: Immature Granulocyte % (Auto) 0.8, Neutrophils (%) (Auto) 80.2H, Lymphocytes (%) (Auto) 14.2L, Monocytes (%) (Auto) 3.7, Eosinophils (%) (Auto) 0.5, Basophils (%) (Auto) 0.6, Neutrophils # (Auto) 8.7H, Lymphocytes # (Auto) 1.5, Monocytes # (Auto) 0.4, Eosinophils # (Auto) 0.1, Basophils # (Auto) 0.1, Nucleated Red Blood Cells % (auto) 0.0, Blood Gas Bicarbonate Standard 22.7, Venous Blood pH 7.281L, Venous Blood Partial Pressure CO2 59.0H, Venous Blood Partial Pressure O2 32.1, Venous Blood Total Carbon Dioxide 29.0H, Venous Blood HCO3 27.2H, Venous Blood Oxygen Saturation 65.0, Venous Blood Base Excess -1.1, Anion Gap 8, Glomerular Filtration Rate 39.8L, Osmolality 321H, Lactic Acid Level 3.9*H, Calcium Level 9.9, Total Bilirubin 0.6, Direct Bilirubin 0.2, Aspartate Amino Transf (AST/SGOT) 43H, Alanine Aminotransferase (ALT/SGPT) 40, Alkaline Bhavna sphatase 329H, Ammonia 31, Total Creatine Kinase 78, Creatine Kinase MB 1.6, Creatine Kinase MB Relative Index 2.05, Troponin I 0.09, Total Protein 8.2, Albumin 3.1L, Albumin/Globulin Ratio 0.6L, Thyroid Stimulating Hormone (TSH) 10.300H, Free Thyroxine 0.83, Salicylates Level < 1.7L, Acetaminophen Level < 2.0L, Ethyl Alcohol Level < 0.003, B-Hydroxybutyrate 1.63, Coronavirus (COVID- 19)(PCR) NEGATIVE, Influenza Type A (RT-PCR) NEGATIVE, Influenza Type B (RT-PCR) NEGATIVE, Respiratory Syncytial Virus (PCR) NEGATIVE 02/27/20 06:30: Osmolality 317H 02/27/20 06:43: Blood Gas Bicarbonate Standard 22.6, Arterial Blood pH 7.450, Arterial Blood Partial Pressure CO2 30.1L, Arterial Blood Partial Pressure O2 134.8H, Arterial Blood Total CO2 21.4L, Arterial Blood HCO3 20.5L, Arterial Blood Base Excess - 2.3L, Arterial Blood Oxygen Saturation 98.6 02/27/20 06:48: Urine Color STRAW, Urine Appearance CLEAR, Urine pH 6.0, Urine Specific [place] 1.022, Urine Protein 2+H, Urine Glucose (UA) 3+H, Urine Ketones NEGATIVE, Urine Blood 2+H, Urine Nitrite NEGATIVE, Urine Bilirubin NEGATIVE, Urine Urobilinogen 0.2, Urine Leukocyte Esterase NEGATIVE, Urine WBC (Auto) 1, Urine RBC (Auto) 8H, Urine Hyaline Casts (Auto) 0, Urine Bacteria (Auto) NEGATIVE, Urine Squamous Epithelial Cells 0, Urine Sperm (Auto) , Urine Opiates Screen NEGATIVE, Urine Me thadone Screen NEGATIVE, Urine Barbiturates Screen NEGATIVE, Urine Phencyclidine Screen NEGATIVE, Urine Amphetamines Screen NEGATIVE, Urine Benzodiazepines Screen NEGATIVE, Urine Cocaine Metabolite Screen NEGATIVE, Urine Cannabinoids Screen POSITIVEH 02/27/20 08:31: Random Glucose 339H 02/27/20 10:30: Anion Gap 7L, Glomerular Filtration Rate > 60.0, Lactic Acid Followup at 4 Hours 2.8*H, Calcium Level 9.0, Magnesium Level 1.6L 02/27/20 10:31: CBC/BMP Laboratory Tests 02/27/20 04:59 02/27/20 10:30 Assessment/Plan 49 year old female brought to the ED for altered mental status. Patient agitated, thrashing around not talking. All history taken from ED staff, old records and daughter Yamila. I spoke with Yamila over the phone. Patient lives with her daughter (Yamila). Yamila reported that patient was started on a new medication 3 days ago. Yesterday afternoon patient complained of feeling sick. She was nauseous and did not have much appetite. She did have a small amount of dinner. In the evening patient was otherwise Ok. They were sitting watching TV and speaking. Last spoke at around 1 am when patient was at her baseline. At 4:30 am she heard abnormal noises from her mother's room so she went to check on her and found her sitting on the floor rocking away , mumbling sounds which she could not understand, confused, thrashing around. She had urinary incontinence on the floor. She called the EMS. She reports patient takes her medications regularly as prescribed and does not get confused about them. She does say that patient does not check her sugars regularly. In the ED Patient was found to be severely hypertensive with BP of 240/120, hyperglycemic with Sugars> 600. CT head was negative for any acute events. She was admitted for Acute metabolic encephalopathy, hypertensive emergency, uncontrolled hyperglycemia. Acute Metabolic encephalopathy ? medications vs hypertensive emergency Vs stroke vs Encephalitis. CT no acute events. But will need MRI when less agitated to rule out stroke. Haldol and ativan/ valium Will need lumber puncture when more calm. Fever with elevated lactate and mildly elevated WBC/ Sepsis will need to rule out infection will send blood cultures and start on Zosyn and vanco She did have some nausea and gi complaints at home. UA neg and cxr neg. Hypertensive emergency will give enalapril 5mg iv once hydralazine 10 mg iv q 6 hours. labetalol IV q 6 hours. Dm with uncontrolled Hyperglycemia does not have DKA. She is supposed to be on insulin It does not look she was taking her trulicity since May. There were boxes and boxes of trulicity in the house. There was no insulin in the house at all. will give Levemir and lispro FS q 6 hours. Anxiety/depression/Bipolar will hold all home meds. Plan / VTE VTE Prophylaxis Ordered?: Yes YOJANA DESAI MD Feb 27, 2020 12:02
[2020-02-27] MEDS: NS 1,000 ML IV SCH (13:45)
[2020-02-27] MEDS ORDERED: LABETALOL 100MG/20ML VIAL IV SCH (14:00)
[2020-02-27] MEDS ORDERED: diazePAM 10MG/2ML SYRINGE (J3360 PER 5MG) IV PRN (15:45)
[2020-02-27] MEDS: METOPROLOL 5 MG/5 ML VIAL IV SCH ×2 (16:22→21:19)
[2020-02-27] MEDS ORDERED: ONDANSETRON 4MG/2ML VIAL IV PRN (16:45)
[2020-02-27] MEDS ORDERED: SUCCINYLCHOLINE INJ 200 MG/10 ML VIAL (J0330) As Ordered ONE (16:54)
[2020-02-27] MEDS ORDERED: PROPOFOL 1,000 MG/100 ML VIAL As Ordered ONE (16:58)
[2020-02-27] MEDS ORDERED: VANCOMYCIN HCL 1,000 MG, VIAL MATE ADAPTER 1 EACH in D5W 250 ML IV ONE (17:00)
[2020-02-27] MEDS: propofoL 1,000 MG in IV 1 EA IV SCH ×10 (17:10→23:45)
[2020-02-27] MEDS ORDERED: MIDAZOLAM INJ 2MG/2ML VIAL (J2250 PER 1MG) As Ordered ONE ×2 (17:26→17:27)
--- NOTE | 2020-02-27 17:33 | REP ---
INDICATION: ET tube placement COMPARISON: 02/27/2020 at 7:59 a.m. TECHNIQUE: Portable AP view of the chest FINDINGS: Endotracheal tube 2.5 cm above the fox. The mediastinum and cardiac silhouette are stable and within normal limits for portable technique. The lung jett are relatively clear without focal consolidation, effusion, or pneumothorax. Skeletal structures are intact. IMPRESSION: No acute cardiopulmonary process appreciated. <Electronically signed by Heron Salvador > 02/27/20 [id number]
[2020-02-27] MEDS: MIDAZOLAM INJ 2MG/2ML VIAL (J2250 PER 1MG) IV PRN ×3 (17:36→19:23)
[2020-02-27] MEDS ORDERED: hydrALAZINE 20MG/ML 1ML VIAL (J0360 PER 20MG) IV SCH (18:00)
[2020-02-27] MEDS ORDERED: VANCOMYCIN HCL 750 MG, VIAL MATE ADAPTER 1 EACH in D5W 250 ML IV ONE (18:00)
--- NOTE | 2020-02-27 18:15 | REP ---
INDICATION: Central line placement COMPARISON: None. TECHNIQUE: Portable AP view of the chest FINDINGS: Right IJ line with tip in the SVC. Endotracheal tube 2.6 cm above the fox. Nasogastric tube courses below the left hemidiaphragm. The mediastinum and cardiac silhouette are stable and within normal limits for portable technique. The lung jett are clear without acute consolidation, effusion, or pneumothorax. Skeletal structures are intact. IMPRESSION: No acute cardiopulmonary process appreciated. <Electronically signed by Heron Salvador > 02/27/20 [id number]
[2020-02-27] MEDS ORDERED: hydrALAZINE 20MG/ML 1ML VIAL (J0360 PER 20MG) IV PRN (19:00)
[2020-02-27] MEDS ORDERED: ACETAMINOPHEN 650 MG SUPP PR PRN (21:00)
[2020-02-27] MEDS ORDERED: LEVEMIR (INSULIN DETEMIR) 1 UNITS/0.01ML SC SCH (21:00)
[2020-02-27 21:25] LABS: ABG BASE EXCESS -2.7 (-2.0-2.0); ABG HCO3 20.7 MEQ/L (22.0-26.0); ABG O2 SATURATION 98.5 % (95.0-99.0); ABG PARTIAL PRESSURE CO2 31.8 mmHg (35.0-45.0); ABG PARTIAL PRESSURE O2 124.7 mmHg (75.0-100.0); ABG STANDARD HCO3 22.2 MEQ/L (22.0-26.0); ABG TOTAL CO2 21.7 MEQ/L (22.0-29.0); ABG pH (ARTERIAL) 7.431 UNITS (7.350-7.450)
[2020-02-27] MEDS: CHLORHEXIDINE GLUCONATE 0.12 % 15ML UDC (PERIDEX ORAL RINSE) MT SCH (21:26)
[2020-02-27] MEDS: PANTOPRAZOLE 40MG VIAL (C9113 PER 1) IV SCH (21:26)
--- NOTE | 2020-02-27 22:32 | CR ---
CRITICAL CARE CONSULTATION DATE: 02/27/2020 REASON FOR CONSULTATION: Altered mental status and agitation. HISTORY OF PRESENT ILLNESS: Ms. Gill is a 49-year-old female with a past medical history of insulin dependent diabetes, depression, anxiety, bipolar disorder, hyperlipidemia, coronary artery disease, hypertension, obstructive sleep apnea, hypothyroidism, who presented with complaints of altered mental status and agitation. History was obtained from the chart and other collateral information as the patient is unable to provide a history. The patient lives at home with her daughter. As per the daughter, she was started on a new medication 3 days prior to her presentation, which she is not sure what the name of it was. Yesterday she started complaining of nausea and decreased appetite and earlier this morning the patient was then noted to be confused, agitated and mumbling. She was not oriented and was also noted to have episode of urinary incontinence. The patient's daughter reports that she otherwise has been compliant with her home medications. She is not compliant, however with checking of her fingerstick glucoses, however at home routinely. In the E.D. the patient was hypertensive as well as agitated. She was also hyperglycemic and was admitted initially for her hypertension as well as with metabolic encephalopathy and for hyperglycemia. The patient required multiple doses of Ativan as well as Valium for her agitation and also received a few doses of Haldol. The patient continued to be significantly combative and had also required four point restraints at one point. With the Valium she did have some improvement in her agitation, although the patient continued to be confused, mumbling and nonverbal. She then had an episode of vomiting of some coffee ground material and had desaturation. She was then intubated by Anesthesia and placed on mechanical ventilation. PAST MEDICAL HISTORY: The patient's past medical history is significant for: 1. Insulin dependent diabetes. 2. History of diabetic neuropathy. 3. Depression/anxiety. 4. Bipolar disorder. 5. Hyperlipidemia. 6. Gastroesophageal reflux disease. 7. Vitamin D deficiency. 8. Coronary artery disease. 9. Hypertension. 10. Obstructive sleep apnea. 11. Hypothyroidism. 12. Cholecystectomy. SURGICAL HISTORY: The patient's past surgical history is significant for left arm surgery with plates and screws. HOME MEDICATIONS: 1. Aripiprazole. 2. Buspirone. 3. Lisinopril. 4. Norisodrine. 5. Paroxetine. 6. Trazodone. 7. Cyclobenzaprine p.r.n. ALLERGIES: No known drug allergies. FAMILY HISTORY: The patient's family history is significant for father with a history of diabetes, mother with a history of diabetes and chronic obstructive pulmonary disease, a brother with a history of Down syndrome and a sister with a history of blood clots. SOCIAL HISTORY: The patient is a former smoker, denies any history of alcohol abuse or other drug use. PHYSICAL EXAMINATION: VITAL SIGNS: T-max 103.9, pulse 122, respirations 30, blood pressure 193/80, O2 sat 97% on room air. INTAKE AND OUTPUT: In 4.4 liters, out 1.3 liters, net positive 3 liters. GENERAL APPEARANCE: The patient is intubated and sedated with Propofol. She is intermittently agitated and moving her extremities spontaneously but is not following commands and not opening her eyes to command. HEENT: Normocephalic and atraumatic. Pupils are small but reactive to light bilaterally. NECK: Supple. Trachea is midline. No JVD noted. CARDIOVASCULAR: Tachycardic, regular rate, normal S1, S2. Unable to clear auscultate any murmurs. PULMONARY: Some coarse rhonchi noted bilaterally with no significant wheezing or rales. ABDOMEN: Obese, but is soft and does not appear tender to palpation. Positive bowel sounds present. EXTREMITIES: No lower extremities edema noted bilaterally. The patient appears to have some mild shivering as well as mild inducible myoclonus. LABORATORY STUDIES: WBC 10.8, hemoglobin 15.5, platelets are 363. Chemistries: Sodium is 140, potassium 3.5, chloride is 107, bicarbonate is 26, BUN 14, creatinine 1.02, glucose is 378. Lactic acid was 2.9, repeat 2.8. Magnesium 1.6. Calcium is 9.0, AST 43, ALT 40, ammonia was 31. His troponin is negative. TSH 10.3, free T-4 is 0.83. Arterial blood gases: PH of 7.450, pco2 of 30.1, pO2 134.8. U-tox: salicylate and Acetaminophen negative. Positive for cannabis. ETOH is negative. Beta hydroxybutyrate is 1.63. IMAGING DATA: Head CT on admission showed mild to moderate atrophy but no acute findings. Chest x-ray post intubation showed the endotracheal tube in position. The patient is somewhat rotated but there are no focal opacities noted. Microbiology: COVID-19 and influenza A, B and RSV negative. ASSESSMENT AND PLAN: Ms. Gill is a 49-year-old female with a past medical history of insulin dependent diabetes, depression, anxiety, bipolar disorder, hyperlipidemia, hypertension, coronary artery disease and obstructive sleep apnea who presented with complaints of altered mental status and agitation - The patient was initially admitted for metabolic encephalopathy as well as hypertension and hyperglycemia. She was then noted to have evidence of fever as well as tremors and mild inducible clonus. She had an episode of vomiting with coffee ground emesis with acute hypoxemic respiratory failure afterwards and desaturation. Given her altered mental status, and inability to protect her airway, the patient was intubated by Anesthesia and placed on mechanical ventilation. The patient also had poor IV access and required placement of a central triple lumen catheter for IV access and administration of medications. 1. Metabolic encephalopathy - The patient has a significant psychiatric history and is on medications including SSRI as well as other medications that can decrease uptake of serotonin. She had a medication change reportedly 3 days prior to her admission which suspect is likely a change in her antipsychotic medications, although the patient's daughter is unclear what the new medication was. Afterwards she started having symptoms of nausea, decreased appetite and then significant encephalopathy. With her fever and tremors as well as with the hypertension and inducible clonus, there is suspicion of possible serotonin syndrome. She had a head CT done which did not show any acute CVA episode but some mild to moderate atrophy. - The patient was given Haldol initially with her periods of agitation as well as benzodiazepines we will hold off on further doses of Haldol and discontinue all serotonergic agents. - The patient will be continued on Propofol for sedation and will also continue with p.r.n. Versed as well for agitation and for tremors. - The patient was given Tylenol for her hypothermia she will also be placed on a cooling blanket as well and if she continues to have fevers and suspicion of serotonin syndrome, not improving with supportive measures or benzodiazepine, would consider Cyproheptadine. - The patient does require a lumbar puncture as well given her encephalopathy and with fever to rule out meningitis she did receive Lovenox, however, earlier today for DVT prophylaxis, so the lumbar puncture will be planned for tomorrow. She was considered for an MRI, however was unable to get that done due to her agitation earlier. 2. Fever with lactic acidosis and borderline leukocytosis - with her encephalopathy and her fevers, the patient will be started on broad spectrum antibiotics with coverage for bacterial meningitis as well as for possible herpes meningitis. - We will follow up blood cultures and we will continue the Vancomycin and Zosyn as well as the Acyclovir pending her HSV testing and lumbar puncture results. - The patient's urinalysis on admission and her chest x-ray also did not show any focal opacity. There is suspicion now after her episode of vomiting that she may have had an aspiration event. Broad spectrum antibiotics, however will cover for any aspiration pneumonia. 3. Acute hypoxic respiratory failure in the setting of her encephalopathy and possible aspiration continue with mechanical ventilation with volume control on settings of 400/15/60 and 7. We will continue to wean down FiO2 as tolerated to maintain 02 sat above 90%. - Continue with daily arterial blood gases and chest x-rays while intubated. - Continue with vent bundle care with head of bed elevation and Chlorhexidine mouthwash. 4. Hypertension - The patient was given p.r.n. doses of Labetalol as well as Hydralazine for her hypertension. With sedation the patient's blood pressure did improve and with concern for a possible serotonin syndrome, she may have labile blood pressures. Would therefore continue with short acting antihypertensive medications as needed with Hydralazine p.r.n. - Can continue with Metoprolol 5 mg q. 6 hours. 5. Hyperglycemia with a history of insulin dependent diabetes the patient was noted to be significantly hyperglycemic on admission. She did not appear to have any ketones and with IV fluids and insulin, her fingersticks have improved. We will continue with insulin as per Primary Team with sliding scale coverage and monitoring of her fingerstick glucose. - The patient was given IV fluid boluses at 30 mL per kg and continue with maintenance fluids with normal saline at 100 mL an hour. We will likely change her to half normal saline tomorrow for maintenance fluids. 6. History of vomiting and coffee ground emesis she has orogastric tube placed to low intermittent suction. - We will start her on Protonix twice daily and continue monitoring. DVT prophylaxis TEDS and SCDs. CODE STATUS: Full code. Total critical care time spent not including any procedures approximately one hour and 45 minutes. MTDD
[2020-02-27] MEDS: D5W IV SCH (23:37)
[2020-02-27] MEDS: ACYCLOVIR IV SCH (23:37)
[2020-02-28] VITALS (47 sets, daily range): BP systolic 87–139; BP diastolic 52–91
[2020-02-28] MEDS: PIPERACILLIN/TAZOBACTAM SOD 3.375 GM in D5W MINI-BAG PLUS 50 ML IV SCH ×4 (01:00→18:21)
[2020-02-28] MEDS ORDERED: VANCOMYCIN HCL 1,000 MG, VIAL MATE ADAPTER 1 EACH in D5W 250 ML IV SCH (02:00)
[2020-02-28] MEDS: propofoL 1,000 MG in IV 1 EA IV SCH ×6 (03:46→20:30)
[2020-02-28] MEDS: METOPROLOL 5 MG/5 ML VIAL IV SCH ×3 (03:47→15:18)
[2020-02-28] MEDS ORDERED: NS 500 ML IV ONE (04:15)
[2020-02-28 05:53] LABS: ABG BASE EXCESS -1.3 (-2.0-2.0); ABG HCO3 22.5 MEQ/L (22.0-26.0); ABG O2 SATURATION 97.1 % (95.0-99.0); ABG PARTIAL PRESSURE CO2 34.9 mmHg (35.0-45.0); ABG PARTIAL PRESSURE O2 83.2 mmHg (75.0-100.0); ABG STANDARD HCO3 23.4 MEQ/L (22.0-26.0); ABG TOTAL CO2 23.6 MEQ/L (22.0-29.0); ABG pH (ARTERIAL) 7.428 UNITS (7.350-7.450)
[2020-02-28 05:57] LABS: BASO # 0.1 10^3/uL (0.0-0.2); BASO % 0.4 % (0.0-1.0); EOS % 0.3 % (0.0-3.0); LYMPH # 2.1 10^3/uL (1.5-5.0); LYMPH % 16.7 % (24.0-44.0); MEAN CORPUSCULAR HEMOGLOBIN 30.7 pg (27.0-33.0); MEAN CORPUSCULAR VOLUME 87.9 fl (80.0-96.0); MONO # 0.7 10^3/uL (0.0-0.8); MONO % 5.5 % (0.0-5.0); NEUTROPHILS # 9.6 10^3/uL (1.5-8.5); NEUTROPHILS % 76.6 % (36.0-66.0); PLATELET COUNT, AUTOMATED 237 10^3/uL (150-450); RED BLOOD COUNT 3.87 10^6/uL (4.00-5.40); WHITE BLOOD COUNT 12.5 10^3/uL (4.0-10.0)
[2020-02-28 06:02] LABS: HEMOGLOBIN 11.9 g/dl (12.0-15.5)
[2020-02-28] MEDS: NS 1,000 ML IV SCH ×2 (06:19→09:45)
[2020-02-28 06:36] LABS: CREATININE FOR GFR 1.25 MG/DL (0.55-1.30)
[2020-02-28 06:37] LABS: BILIRUBIN,TOTAL 0.9 MG/DL (0.2-1.0); CALCIUM LEVEL 8.2 MG/DL (8.5-10.1); GLOMERULAR FILTRATION RATE 48.7 (>58); MAGNESIUM LEVEL 1.9 MG/DL (1.8-2.4); POTASSIUM SERUM 2.8 MEQ/L (3.5-5.1); TOTAL PROTEIN 5.2 GM/DL (6.4-8.2)
[2020-02-28] MEDS: VANCOMYCIN HCL 1,000 MG, VIAL MATE ADAPTER 1 EACH in D5W 250 ML IV SCH ×2 (06:39→14:38)
[2020-02-28] MEDS: HumaLOG INSULIN (NovoLOG) PER UNIT SC SCH ×4 (06:42→23:47)
[2020-02-28] MEDS: ACYCLOVIR IV SCH (06:42)
[2020-02-28] MEDS: D5W IV SCH (06:42)
--- NOTE | 2020-02-28 07:33 | REP ---
INDICATION: intubated COMPARISON: 02/27/2020 at 7:59 a.m. TECHNIQUE: Portable AP view of the chest FINDINGS: Endotracheal tube 3.6 cm above the fox. Nasogastric tube courses below left hemidiaphragm. Right IJ line with tip in the SVC. Right lower lobe opacities and right pleural effusion represent new findings as compared to prior examination. Ipsilateral mediastinal shift is noted suggesting overall right-sided volume loss. The left hemithorax is clear. No pneumothorax. Skeletal structures are intact. IMPRESSION: 1. Lines and tubes in satisfactory position. 2. New considerable right lower lobe opacities suggesting elements of consolidation/collapse and pleural effusion causing volume loss and ipsilateral mediastinal shift. <Electronically signed by Heron Salvador > 02/28/20 0727
[2020-02-28] MEDS: KCL 10MEQ/100ML SWI (KRUN) 10 MEQ in IV 1 EA IV SCH ×6 (08:08→14:48)
[2020-02-28] MEDS: PANTOPRAZOLE 40MG VIAL (C9113 PER 1) IV SCH ×2 (08:21→20:30)
[2020-02-28] MEDS: CHLORHEXIDINE GLUCONATE 0.12 % 15ML UDC (PERIDEX ORAL RINSE) MT SCH ×2 (08:22→20:30)
[2020-02-28] MEDS: MIDAZOLAM INJ 2MG/2ML VIAL (J2250 PER 1MG) IV PRN ×3 (09:10→23:36)
--- NOTE | 2020-02-28 09:15 | ECGEPIP ---
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
[2020-02-28] MEDS ORDERED: LIDOCAINE 1% MDV 20ML VIAL As Ordered ONE (09:21)
--- NOTE | 2020-02-28 09:40 | RO ---
OPERATIVE NOTE DATE OF OPERATION: 02/27/2020 INDICATIONS: Vascular access. PREPROCEDURE DIAGNOSES: 1. Encephalopathy. 2. Acute hypoxemia respiratory failure. POSTPROCEDURE DIAGNOSIS: 1. Encephalopathy. 2. Acute hypoxemia respiratory failure. ATTENDING: Carol Irving MD CONSENT: The procedure was performed emergently and the permission was implied due to the emergent nature of the procedure. PROCEDURE: Central line. CONSENT: Due to the emergent nature of the procedure, the procedure was performed emergently and the permission was implied. PROCEDURE SUMMARY: A central line insertion practices form was completed by an independent observer. A time-out was performed prior to the procedure. Full sterile technique was maintained throughout the procedure, including surgical cap, mask, protective eyewear, full gown, and sterile gloves. The patient was placed in Trendelenburg position. The right neck region was prepped using chlorhexidine scrub and draped in sterile fashion using a fenestrated drape and a sterile probe cover was employed. The right internal jugular vein was identified using ultrasound. Anesthesia was achieved over the vein using 1% Lidocaine. Using real-time [id number] guidance, the introducer needle was inserted into the internal jugular vein under direct ultrasound visualization. Venous blood was withdrawn. The syringe was removed and a guidewire was advanced into the introducer needle. The introducer needle was removed over the guidewire. A small incision was made at the skin surface with a scalpel, and the dilator was exchanged over the guidewire. After appropriate dilation was obtained, the dilator was exchanged over the wire for a triple lumen central venous catheter. The wire was removed and the catheter was sutured in place at 18 cm. A sterile chlorhexidine-impregnated dressing was placed over the catheter at the insertion site. The patient tolerated the procedure without any hemodynamic compromise. At the time of procedure completion, all ports were aspirated and flushed properly. Postprocedure chest x-ray shows the right internal jugular (IJ) central line in satisfactory position. Estimated blood loss was less than 2 mL.
--- NOTE | 2020-02-28 10:04 | IPNPDOC ---
Subjective Date Seen The patient was seen on 02/28/20. Subjective Chief Complaint/HPI Patient was febrile overnight responded to cooling blanket. He BP was soft at night and needed a bolus of fluid. She remains sedated and ventilated. On sedation vacation this morning she was agitated and biting on the tube and trying to reach for the tube. Objective Physical Examination General Exam: Positive: Other (intubated and ventilated. ) Eye Exam: Positive: Conjunctiva & lids normal; Negative: Sclera icteric ENT Exam: Positive: Atraumatic, Tongue Midline, Other ENT (tongue piercing) Neck Exam: Positive: Supple; Negative: JVD, thyromegaly Chest Exam: Positive: Diminished (attehright base, with crackles. ) Heart Exam: Positive: Tachycardic, Regular Rhythm, Normal S1, Normal S2; Negative: Murmurs, Rubs Telemetry: Positive: No significant arrhythmia Abdomen Exam: Positive: BS Hypoactive, Soft, Other (obese); Negative: Hepatospenomegaly Extremity Exam: Negative: Clubbing, Cyanosis, Edema Skin Exam: Positive: Other skin issue (bruises on her right arm, right knee, scratches and abrasions on the right thigh and right abdomen. ) Neuro Exam: Positive: Other (tremors. does not seem to have any focal neurodeficit, confused, does nto follow commands. ) Assessment /Plan Assessment 49 year old female brought to the ED for altered mental status. Patient agitated, thrashing around not talking. All history taken from ED staff, old records and mother Yamila. I spoke with Yamila over the phone. Patient lives with her mother(Yamila). Yamila reported that patient was started on a new medication 3 days ago. Yesterday afternoon patient complained of feeling sick. She was nauseous and did not have much appetite. She did have a small amount of dinner. In the evening patient was otherwise Ok. They were sitting watching TV and speaking. Last spoke at around 1 am when patient was at her baseline. At 4:30 am Yamila heard abnormal noises from Shandra Lambert's room so she went to check on her and found her sitting on the floor rocking away , mumbling sounds which she could not understand, confused, thrashing around. She had urinary incontinence on the floor. She called the EMS. In the ED Patient was found to be severely hypertensive with BP of 240/120, hyperglycemic with Sugars> 600. CT head was negative for any acute events. She was admitted for Acute metabolic encephalopathy, hypertensive emergency, uncontrolled hyperglycemia. Acute respiratory failure with hypoxia due to vomiting in encephalopathic state and aspiration s/p intubation on 02/26/19 Aspiration pneumonia CXR 02/27/19 shows New considerable right lower lobe opacities suggesting elements of consolidation/collapse and pleural effusion causing volume loss and ipsilat eral mediastinal shift. On zosyn and vanco Acute Metabolic encephalopathy Medications causing serrotonin syn vs NMS/ acute encephalitis/ Sepsis CT no acute events. Will need MRI when less agitated to rule out stroke and evaluate for HSV encephalitis Lumber puncture Vanco, zosyn, acyclovir. Sepsis Now patient has aspiration pneumonia However we could not find a source of infection. Her CXR was clear and UA was clean, Her abdomen was benign. Encephalitis/ meningitis remains a differential continue vanco, zosyn and acyclovir. Hypertensive emergency resolved. hydralazine 10 mg iv q 6 hours prn Dm with uncontrolled Hyperglycemia does not have DKA. She is supposed to be on insulin and trulicity at home It does not look she was taking her trulicity since May. There were boxes and boxes of trulicity in the house. There was no insulin in the house at all. will give Levemir and lispro FS q 6 hours. Anxiety/depression/Bipolar will hold all home meds. Plan/VTE VTE Prophylaxis Ordered?: Yes VS, I&O, 24H, Fishbone Vital Signs/I&O Vital Signs Date Time Temp Pulse Resp B/P (MAP) Pulse Ox O2 Delivery O2 Flow Rate FiO2 02/28/20 07:31 100 20 96 40 02/28/20 07:00 100.0 112/72 (85) Ventilator I&O- Last 24 Hours up to 6 AM 02/28/20 06:00 Intake Total 3912.2 ml Output Total 2435 ml Balance 1477.2 ml Laboratory Data 24H LABS Laboratory Tests 2 02/27/20 10:30: Anion Gap 7L, Glomerular Filtration Rate > 60.0, Lactic Acid Followup at 4 Hours 2.8*H, Calcium Level 9.0, Magnesium Level 1.6L 02/27/20 10:31: 02/27/20 14:01: Bedside Glucose (Misc Panel) 314H 02/27/20 18:48: Bedside Glucose (Misc Panel) 347H 02/27/20 21:16: Blood Gas Bicarbonate Standard 22.2, Arterial Blood pH 7.431, Arterial Blood Partial Pressure CO2 31.8L, Arterial Blood Partial Pressure O2 124.7H, Arterial Blood Total CO2 21.7L, Arterial Blood HCO3 20.7L, Arterial Blood Base Excess - 2.7L, Arterial Blood Oxygen Saturation 98.5 02/27/20 23:33: Bedside Glucose (Misc Panel) 315H 02/28/20 05:41: Blood Gas Bicarbonate Standard 23.4, Arterial Blood pH 7.428, Arterial Blood Partial Pressure CO2 34.9L, Arterial Blood Partial Pressure O2 83.2, Arterial Blood Total CO2 23.6, Arterial Blood HCO3 22.5, Arterial Blood Base Excess -1.3, Arterial Blood Oxygen Saturation 97.1, Immature Granulocyte % (Auto) 0.5, Neutrophils (%) (Auto) 76.6H, Lymphocytes (%) (Auto) 16.7L, Monocytes (%) (Auto) 5.5H, Eosinophils (%) (Auto) 0.3, Basophils (%) (Auto) 0.4, Neutrophils # (Auto) 9.6H, Lymphocytes # (Auto) 2.1, Monocytes # (Auto) 0.7, Eosinophils # (Auto) 0.0, Basophils # (Auto) 0.1, Nucleated Red Blood Cells % (auto) 0.0, Anion Gap 7L, Glomerular Filtration Rate 48.7L, Calcium Level 8.2L, Magnesium Level 1.9, Total Bilirubin 0.9, Aspartate Amino Transf (AST/SGOT) 50H, Alanine Aminotransferase (ALT/SGPT) 34, Alkaline Phosphatase 225H, Total Protein 5.2#L, Albumin 2.0#L, Albumin/Globulin Ratio 0.6L CBC/BMP Laboratory Tests 02/27/20 10:30 02/28/20 05:41 Microbiology Microbiology 02/27/20 Blood Culture, Received Pending 02/27/20 Blood Culture, Received Pending YOJANA DESAI MD Feb 28, 2020 10:04
[2020-02-28 11:13] LABS: CSF TUBE# GLU TUBE 2; GLUCOSE CSF 174 MG/DL (40-75)
[2020-02-28] MEDS ORDERED: LIDOCAINE 1% MDV 20ML VIAL SC ONE (11:15)
[2020-02-28 11:27] LABS: APPEARANCE, CSF CLEAR (CLEAR); COLOR, CSF COLORLESS (COLORLESS); CSF TUBE# CELL CNT TUBE 1
[2020-02-28 11:28] LABS: APPEARANCE, CSF CLEAR (CLEAR); COLOR, CSF COLORLESS (COLORLESS); CSF TUBE# CELL CNT TUBE 4
[2020-02-28] MEDS ORDERED: NS 0.45% 1,000 ML IV SCH (12:30)
[2020-02-28 17:16] LABS: CSF TUBE# TP TUBE 2; TOTAL PROTEIN,CSF 54 MG/DL (15-45)
[2020-02-28 17:29] LABS: CREATININE FOR GFR 1.24 MG/DL (0.55-1.30); GLOMERULAR FILTRATION RATE 49.1 (>58); POTASSIUM SERUM 3.2 MEQ/L (3.5-5.1)
[2020-02-28] MEDS ORDERED: NS 1,000 ML IV ONE (19:00)
[2020-02-28] MEDS ORDERED: ACETAMINOPHEN *IV* 1,000 MG in IV 1 EA IV ONE (20:00)
[2020-02-28] MEDS ORDERED: KCL 20MEQ IN 100ML SWI (KRUN) 20 MEQ in IV 1 EA IV ONE ×2 (20:15)
[2020-02-28] MEDS: LEVEMIR (INSULIN DETEMIR) 1 UNITS/0.01ML SC SCH (20:30)
[2020-02-28] MEDS: KCL 20MEQ IN 0.45NS 1000ML 1,000 ML IV SCH (20:32)
[2020-02-28 21:15] LABS: CALCIUM LEVEL 8.2 MG/DL (8.5-10.1); CREATININE FOR GFR 1.16 MG/DL (0.55-1.30); GLOMERULAR FILTRATION RATE 53.1 (>58); PHOSPHORUS LEVEL 2.5 MG/DL (2.5-4.9); POTASSIUM SERUM 3.1 MEQ/L (3.5-5.1)
[2020-02-28 21:22] LABS: VANCOMYCIN LEVEL TROUGH 26.3 UG/ML (10.0-20.0)
[2020-02-29] VITALS (35 sets, daily range): BP systolic 97–184; BP diastolic 55–110; O2SAT 92–95
[2020-02-29] MEDS: PIPERACILLIN/TAZOBACTAM SOD 3.375 GM in D5W MINI-BAG PLUS 50 ML IV SCH ×4 (01:33→20:05)
[2020-02-29] MEDS ORDERED: VANCOMYCIN HCL 1,000 MG, VIAL MATE ADAPTER 1 EACH in D5W 250 ML IV SCH (02:00)
[2020-02-29] MEDS: propofoL 1,000 MG in IV 1 EA IV SCH ×2 (02:12→07:35)
[2020-02-29] MEDS: MIDAZOLAM INJ 2MG/2ML VIAL (J2250 PER 1MG) IV PRN ×3 (04:50→07:53)
[2020-02-29 05:37] LABS: BASO # 0.1 10^3/uL (0.0-0.2); BASO % 0.5 % (0.0-1.0); EOS # 0.3 10^3/uL (0.0-0.5); HEMATOCRIT 32.8 % (36.0-47.0); LYMPH # 1.9 10^3/uL (1.5-5.0); LYMPH % 18.9 % (24.0-44.0); MEAN CORPUSCULAR HEMOGLOBIN 30.1 pg (27.0-33.0); MEAN CORPUSCULAR HGB CONC 33.5 g/dl (32.0-36.5); MEAN CORPUSCULAR VOLUME 89.9 fl (80.0-96.0); MONO # 0.4 10^3/uL (0.0-0.8); MONO % 4.2 % (0.0-5.0); NEUTROPHILS # 7.2 10^3/uL (1.5-8.5); NEUTROPHILS % 72.5 % (36.0-66.0); PLATELET COUNT, AUTOMATED 226 10^3/uL (150-450); RED BLOOD COUNT 3.65 10^6/uL (4.00-5.40)
[2020-02-29] MEDS: HumaLOG INSULIN (NovoLOG) PER UNIT SC SCH ×3 (05:53→18:00)
[2020-02-29 06:06] LABS: ALBUMIN 1.8 GM/DL (3.2-5.2); BILIRUBIN,TOTAL 0.7 MG/DL (0.2-1.0); CALCIUM LEVEL 8.3 MG/DL (8.5-10.1); CREATININE FOR GFR 1.25 MG/DL (0.55-1.30); GLOMERULAR FILTRATION RATE 48.7 (>58); MAGNESIUM LEVEL 1.9 MG/DL (1.8-2.4); POTASSIUM SERUM 3.1 MEQ/L (3.5-5.1); TOTAL PROTEIN 5.2 GM/DL (6.4-8.2)
[2020-02-29 06:09] LABS: ABG BASE EXCESS -4.7 (-2.0-2.0); ABG HCO3 18.6 MEQ/L (22.0-26.0); ABG O2 SATURATION 93.7 % (95.0-99.0); ABG PARTIAL PRESSURE CO2 29.2 mmHg (35.0-45.0); ABG STANDARD HCO3 20.5 MEQ/L (22.0-26.0); ABG TOTAL CO2 19.5 MEQ/L (22.0-29.0); ABG pH (ARTERIAL) 7.422 UNITS (7.350-7.450)
--- NOTE | 2020-02-29 09:00 | REP ---
INDICATION: intubated COMPARISON: 02/28/2020 TECHNIQUE: Portable AP view of the chest FINDINGS: The endotracheal tube appears to be less than 2 cm from the fox. Nasogastric tube courses below left hemidiaphragm in satisfactory position. Right IJ line with tip in the SVC/right atrium. The cardiac silhouette is normal. There is considerably improved aeration to the right hemithorax, but continued moderate opacities at the right base remain present. No obvious effusion. No pneumothorax. IMPRESSION: 1. Endotracheal tube position warrants re-evaluation. 2. Decreased consolidations and improved aeration to the right hemithorax with continued moderate right lower lobe opacities noted. <Electronically signed by Heron Salvador > 02/29/20 [id number]
[2020-02-29] MEDS: ENOXAPARIN 40MG/0.4ML SYRINGE (J1650 PER 10MG) SC SCH (09:12)
[2020-02-29] MEDS: VANCOMYCIN HCL 1,000 MG, VIAL MATE ADAPTER 1 EACH in D5W 250 ML IV SCH ×2 (09:12→21:23)
[2020-02-29] MEDS: PANTOPRAZOLE 40MG VIAL (C9113 PER 1) IV SCH (09:12)
[2020-02-29] MEDS: CHLORHEXIDINE GLUCONATE 0.12 % 15ML UDC (PERIDEX ORAL RINSE) MT SCH (09:12)
[2020-02-29] MEDS ORDERED: diazePAM 10MG/2ML SYRINGE (J3360 PER 5MG) IV PRN (10:30)
[2020-02-29] MEDS ORDERED: MAG SULF 1GM/100ML (MAG RUN) 1 GM in IV 1 EA IV ONE (11:00)
[2020-02-29] MEDS ORDERED: KCL 20MEQ IN 100ML SWI (KRUN) 20 MEQ in IV 1 EA IV ONE ×2 (12:00)
[2020-02-29] MEDS ORDERED: ACETAMINOPHEN *IV* 1,000 MG in IV 1 EA IV ONE (12:00)
[2020-02-29] MEDS: KCL 20MEQ IN 0.45NS 1000ML 1,000 ML IV SCH (16:17)
--- NOTE | 2020-02-29 17:47 | CCN ---
CRITICAL CARE NOTE DATE: 02/28/2020 Patient was seen and examined this morning during bedside rounds. Overnight patient did have improvement in her fever with the use of a cooling blanket as well as with Tylenol. This morning, however, she did have a fever again and was placed back on the cooling blanket. She has been continued on propofol for sedation with as-needed Versed for episodes of agitation. With a sedation vacation this morning, patient continues to be confused, agitated, and not following commands appropriately. PHYSICAL EXAMINATION: VITAL SIGNS: Temperature 100.0, pulse 100, respirations 20, blood pressure 112/72, oxygen saturation 96% on 40% FiO2. Intake 5.6 liters, out 2.1, net positive 3.4 liters. GENERAL: Patient is intubated and sedated. She is responsive to painful stimuli and intermittently agitated at times with sedation vacation but is not following commands appropriately. HEENT: Normocephalic, atraumatic. Pupils are small but reactive to light bilaterally. NECK: Supple. Trachea is midline. There is no jugular venous distention (JVD) noted. There is a right internal jugular (IJ) triple lumen in place. CARDIOVASCULAR: Tachycardic, regular rate and rhythm. Normal S1, S2. Unable to clearly appreciate any murmurs. PULMONARY: Coarse ventilator breath sounds bilaterally with more diminished breath sounds on the right side with occasional rhonchi. ABDOMEN: Obese, soft, nontender, nondistended. Positive bowel sounds present. EXTREMITIES: There is no lower extremity edema bilaterally. LABORATORY DATA: WBC 12.5, hemoglobin 11.9, platelets 237. Chemistry: Sodium 141, potassium 2.8, chloride 109, bicarbonate 25, BUN 18, creatinine 1.25, glucose 270, calcium 8.2, magnesium 1.9. Albumin 2.0, alkaline phosphatase 225, AST 50, ALT 34. ABG: A pH 7.428, pCO2 of 34.9, pO2 of 83.2. IMAGING: Chest x-ray this morning shows endotracheal (ET) tube in good position. There is an orogastric (OG) tube in place coursing below the diaphragm. There is a right IJ triple lumen in satisfactory position with the tip in the superior vena cava (SVC). There is increased new right lower lobe opacities as well as volume loss and small right pleural effusion. ASSESSMENT AND PLAN: Ms. Gill is a 49-year-old female with a past medical history of insulin-dependent diabetes, depression, anxiety, bipolar disorder, hyperlipidemia, hypertension, coronary artery disease (CAD), and obstructive sleep apnea (HERLINDA), who presented with complaints of altered mental status and agitation. Patient was also noted to be hypertensive on admission as well as hyperglycemic. Patient was initially being treated for her hypertension and hyperglycemia as well as given medications for her agitation; however, yesterday patient had an episode of vomiting with coffee-ground emesis and with acute hypoxemic respiratory failure, requiring intubation for protection of her airway and being placed on a mechanical ventilator. 1. Metabolic encephalopathy. Patient was suspected to possible serotonin syndrome contributing to her metabolic encephalopathy given her medication history as well as a reported history of a new medications change a few days prior to her admission. Patient did have fevers and hypertension as well as some inducible clonus initially, which can be consistent with serotonin syndrome. She did not appear to be significantly rigid, however, and is less likely to have neuroleptic malignant syndrome based on her history and medications. She did have a CT head initially, which did not show any evidence of cerebrovascular accident (CVA) but did show some mild to moderate atrophy. - Patient had a lumbar puncture performed today by anesthesia. Will followup the results of the cerebrospinal fluid (CSF) to evaluate for possible bacterial or viral meninginitis. She is currently on acyclovir, but if testing is negative, will discontinue the acyclovir for suspected herpes encephalitis. - Patient was on broad-spectrum antibiotics given her fever and leukocytosis for sepsis. She does have evidence on imaging now of likely aspiration pneumonia in the setting of her vomiting yesterday. She will need antibiotic coverage still for anaerobes in particular. Depending on the results of her CSF cultures, would likely be able to discontinue her vancomycin and continue her antibiotics on Zosyn for aspiration pneumonia coverage. - Will check a sputum culture. - Will continue trend procalcitonin to aid in further antibiotic de-escalation. 2. Acute hypoxemic respiratory failure in the setting of her metabolic encephalopathy with aspiration. - Patient is on mechanical ventilation with volume control with settings of 400/15/40 and 7. - Will continue to wean down FiO2 as tolerated. - Patient will be continued on propofol for sedation and Versed as needed for agitation. - Will continue with daily sedation vacation and ventilator weaning as tolerated. - Continue with ventilator bundle care with head of bed elevation and chlorhexidine mouthwash. - Continue with daily chest x-ray and arterial blood gases (ABGs) while intubated. 3. Acute kidney injury (ARCELIA). Patient noted to have mild ARCELIA on labs today. She is also hypokalemic and did receive repletion for her potassium and magnesium. Will followup with a repeat basic metabolic profile (BMP) this afternoon and continue to replete as needed. - Patient's hypertension has improved with sedation. Will continue to monitor blood pressure and will give as-needed short-acting antihypertensives as needed. - Can continue with her metoprolol. 4. Hyperglycemia with a history of insulin-dependent diabetes. She was hyperglycemic on admission, although she did not have significant elevated ketones. - Will continue with sliding-scale coverage and insulin as per primary team with monitoring of her fingerstick glucose. - Patient will be continued with maintenance fluids but will change to half normal saline (NS) and decrease to 50 mL an hour. 5. History of vomiting and some coffee-ground emesis. - Patient's OG tube is on low intermittent suction. She does continue to have some dark output although less compared to yesterday. - Will continue with Protonix twice a day. 6. Deep venous thrombosis (DVT) prophylaxis. Thromboembolic deterrents (TEDs) and sequential compression devices (SCDs). 7. Code status. Full code. TOTAL CRITICAL CARE TIME SPENT, NOT INCLUDING PROCEDURES: Approximately 40 minutes.
[2020-02-29] MEDS: LEVEMIR (INSULIN DETEMIR) 1 UNITS/0.01ML SC SCH (21:00)
[2020-03-01] VITALS (26 sets, daily range): BP systolic 141–185; BP diastolic 83–100; O2SAT 87–99
[2020-03-01 00:34] LABS: BLOOD UREA NITROGEN 10 MG/DL (7-18); CALCIUM LEVEL 8.7 MG/DL (8.5-10.1); CARBON DIOXIDE LEVEL 25 MEQ/L (21-32); CHLORIDE LEVEL 114 MEQ/L (98-107); GLOMERULAR FILTRATION RATE > 60.0 (>58); GLUCOSE, FASTING 230 MG/DL (70-100); POTASSIUM SERUM 3.3 MEQ/L (3.5-5.1); SODIUM LEVEL 144 MEQ/L (136-145)
--- NOTE | 2020-03-01 01:21 | REPVR ---
PROCEDURE INFORMATION: Exam: CT Head Without Contrast Exam date and time: 03/01/2020 12:58 AM Age: 49 years old Clinical indication: Pain; Headache; Additional info: Fell out of bed TECHNIQUE: Imaging protocol: Computed tomography of the head without contrast. Radiation optimization: All CT scans at this facility use at least one of these dose optimization techniques: automated exposure control; mA and/or kV adjustment per patient size (includes targeted exams where dose is matched to clinical indication); or iterative reconstruction. COMPARISON: CT Head without contrast 02/27/2020 7:41 AM FINDINGS: Brain: There is no CT evidence for an acute large vessel territorial infarct. No acute intracranial hemorrhage is seen. No mass, mass effect, midline shift, or herniation is noted. Cerebral ventricles: The ventricles are mildly dilated in proportion to the sulci, which is compatible with mild generalized cerebral volume loss that is similar in appearance compared to the prior CT on 02/27/2020. Bones/joints: The skull is intact. No suspicious osteolytic or osteoblastic lesion. Paranasal sinuses: The imaged portions of the sinuses are well-aerated. No air-fluid levels are noted in the sinuses. Mastoid air cells: Clear. Soft tissues: Unremarkable. No soft tissue fluid collection. IMPRESSION: No acute intracranial abnormality. Electronically signed by: Clarence Lopez On 03/01/2020 01:21:21 AM
[2020-03-01] MEDS: PIPERACILLIN/TAZOBACTAM SOD 3.375 GM in D5W MINI-BAG PLUS 50 ML IV SCH ×4 (01:36→18:03)
[2020-03-01 05:39] LABS: BASO % 0.4 % (0.0-1.0); EOS # 0.3 10^3/uL (0.0-0.5); EOS % 4.4 % (0.0-3.0); HEMATOCRIT 32.6 % (36.0-47.0); HEMOGLOBIN 10.8 g/dl (12.0-15.5); LYMPH # 1.4 10^3/uL (1.5-5.0); LYMPH % 21.1 % (24.0-44.0); MEAN CORPUSCULAR HEMOGLOBIN 30.2 pg (27.0-33.0); MEAN CORPUSCULAR HGB CONC 33.1 g/dl (32.0-36.5); MEAN CORPUSCULAR VOLUME 91.1 fl (80.0-96.0); MONO # 0.4 10^3/uL (0.0-0.8); MONO % 5.3 % (0.0-5.0); NEUTROPHILS # 4.7 10^3/uL (1.5-8.5); NEUTROPHILS % 67.9 % (36.0-66.0); PLATELET COUNT, AUTOMATED 233 10^3/uL (150-450); RED BLOOD COUNT 3.58 10^6/uL (4.00-5.40); WHITE BLOOD COUNT 6.8 10^3/uL (4.0-10.0)
[2020-03-01 05:52] LABS: ALBUMIN 1.8 GM/DL (3.2-5.2); ALT/SGPT 46 U/L (12-78); BLOOD UREA NITROGEN 10 MG/DL (7-18); CALCIUM LEVEL 8.6 MG/DL (8.5-10.1); CARBON DIOXIDE LEVEL 26 MEQ/L (21-32); CHLORIDE LEVEL 115 MEQ/L (98-107); CREATININE FOR GFR 0.91 MG/DL (0.55-1.30); GLOMERULAR FILTRATION RATE > 60.0 (>58); GLUCOSE, FASTING 224 MG/DL (70-100); MAGNESIUM LEVEL 2.1 MG/DL (1.8-2.4); POTASSIUM SERUM 3.1 MEQ/L (3.5-5.1); SODIUM LEVEL 145 MEQ/L (136-145); TOTAL PROTEIN 5.3 GM/DL (6.4-8.2)
[2020-03-01] MEDS: HumaLOG INSULIN (NovoLOG) PER UNIT SC SCH ×4 (06:00→17:00)
[2020-03-01] MEDS ORDERED: POTASSIUM CHLORIDE 10 MEQ SR TABLET PO ONE (08:00)
[2020-03-01] MEDS: PANTOPRAZOLE 40MG VIAL (C9113 PER 1) IV SCH (08:02)
[2020-03-01] MEDS: ENOXAPARIN 40MG/0.4ML SYRINGE (J1650 PER 10MG) SC SCH (08:03)
[2020-03-01] MEDS: VANCOMYCIN HCL 1,000 MG, VIAL MATE ADAPTER 1 EACH in D5W 250 ML IV SCH (09:54)
[2020-03-01] MEDS: KCL 10MEQ/100ML SWI (KRUN) 10 MEQ in IV 1 EA IV SCH ×2 (11:17→12:19)
--- NOTE | 2020-03-01 11:41 | IPNPDOC ---
Text Note Date of Service The patient was seen on 02/29/20. NOTE Took back patient care from Dr Irving. Patient was extubated this am Remains confused though better than prior to intubation. Answering questions appropriately but cannot remember what happened. Still somnolent did get a IV Valium in the am. So will keep NPO. Vitals stable. chest with right basal crackles otherwise clear to auscultation CVS; rate normal, regular, no rub/ murmur or gallop Abdomen: obese, soft, nontender, bowel sounds positive. Extremities : no edema. Labs Noted. Her LP was negative for any meningitis or encephalitis. CXR new aspiration pneumonia. Plan: will continue current medications, keep NPO till more awake and alert. VS,Fishbone, I+O VS, Fishbone, I+O Laboratory Tests 02/29/20 23:45 03/01/20 05:12 Vital Signs Date Time Temp Pulse Resp B/P (MAP) Pulse Ox O2 Delivery O2 Flow Rate FiO2 03/01/20 08:51 155/90 (111) 03/01/20 07:15 97.7 99 20 95 Room Air 03/01/20 04:00 2.0 02/29/20 09:45 28 I&O- Last 24 Hours up to 6 AM 03/01/20 06:00 Intake Total 2005 ml Output Total 2375 ml Balance -370 ml YOJANA DESAI MD Mar 01, 2020 11:41
--- NOTE | 2020-03-01 12:08 | IPNPDOC ---
Subjective Date Seen The patient was seen on 03/01/20. Subjective Chief Complaint/HPI Patient confused and agitated last night. She fell off the bed. Head CT was negative for any acute events. continues to be foggy about what happened. Appears slow to answer questions but more appropriate today than yesterday. Could not tell me her medications. Could not tell me if she had gone to urgent care recently and was given any new medications. She says she has been taking her trulicity and insulin. Says has the insulin in the fridge. 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 Says that she was hungry I started her on a diet. Nurse later called me and said she vomited during eating and reported some stuff went the wrong way. Will ask for speech and swallow eval. Objective Physical Examination General Exam: Positive: Alert, Cooperative, No Acute Distress, Other Eye Exam: Positive: Conjunctiva & lids normal, EOMI; Negative: Sclera icteric ENT Exam: Positive: Atraumatic, Tongue Midline, Other ENT (tongue piercing) Neck Exam: Positive: Supple; Negative: JVD, thyromegaly Chest Exam: Positive: Normal air movement, Diminished (Crackles at meet bases, more in the right base.) Heart Exam: Positive: Rate Normal, Regular Rhythm, Normal S1, Normal S2; Negative: Murmurs, Rubs Telemetry: Positive: No significant arrhythmia Abdomen Exam: Positive: Normal bowel sounds, Soft, Other (obese, no organomegaly appretaited.); Negative: Tenderness Extremity Exam: Negative: Clubbing, Cyanosis, Edema Skin Exam: Positive: Other skin issue (bruises on her right arm, right knee, scratches and abrasions on the right thigh and right abdomen. ) Neuro Exam: Positive: Normal Speech, Strength at 5/5 X4 ext Assessment /Plan Assessment 49 year old female brought to the ED for altered mental status. Patient agitated, thrashing around not talking. All history taken from ED staff, old records and mother Yamila. I spoke with Yamila over the phone. Patient lives with her mother(Yamila). Yamila reported that patient was started on a new medication 3 days ago. Yesterday afternoon patient complained of feeling sick. She was nauseous and did not have much appetite. She did have a small amount of dinner. In the evening patient was otherwise Ok. They were sitting watching TV and speaking. Last spoke at around 1 am when patient was at her baseline. At 4:30 am Yamila heard abnormal noises from Shandra Lambert's room so she went to check on her and found her sitting on the floor rocking away , mumbling sounds which she could not understand, confused, thrashing around. She had urinary incontinence on the floor. She called the EMS. In the ED Patient was found to be severely hypertensive with BP of 240/120, hyperglycemic with Sugars> 600. CT head was negative for any acute events. She was admitted for Acute metabolic encephalopathy, hypertensive emergency, uncontrolled hyperglycemia. Acute respiratory failure with hypoxia resolved. due to vomiting in encephalopathic state and aspiration s/p intubation on 02/27/20 and extubated on 02/29/20 Aspiration pneumonia/ sepsis. CXR 02/28/20 shows New considerable right lower lobe opacities suggesting elements of consolidation/collapse and pleural effusion causing volume loss and ipsilateral mediastinal shift. On zosyn and vanco will get speech and swallow eval. Acute Metabolic encephalopathy Most likely medication interaction. Likely Serotonin syndrome after starting on cyclobenzaprine with psych medications. Patient did have fevers and hypertension as well as some tremors and inducible clonus initially, which can be consistent with serotonin syndrome. She did not have rigidity. Lumber puncture was negative for encephalitis / meningitis. She did not have any infection on admission. CT no acute events. No focal neurodeficit to suggest stroke. Hypertensive emergency resolved. DM with uncontrolled Hyperglycemia did not have DKA. She is supposed to be on insulin and trulicity at home It does not look she was taking her trulicity since May. There were boxes and boxes of trulicity in the house. There was no insulin in the house at all as per mother Yamila. will give Levemir and lispro FS q 6 hours. Anxiety/depression/Bipolar will hold all home meds. Plan/VTE VTE Prophylaxis Ordered?: Yes VS, I&O, 24H, Fishbone Vital Signs/I&O Vital Signs Date Time Temp Pulse Resp B/P (MAP) Pulse Ox O2 Delivery O2 Flow Rate FiO2 03/01/20 11:23 97.8 93 20 162/93 (116) 99 Room Air 03/01/20 04:00 2.0 02/29/20 09:45 28 I&O- Last 24 Hours up to 6 AM 03/01/20 06:00 Intake Total 2005 ml Output Total 2375 ml Balance -370 ml Laboratory Data 24H LABS Laboratory Tests 2 02/29/20 11:53: Bedside Glucose (Misc Panel) 191H 02/29/20 18:52: Bedside Glucose (Misc Panel) 184H 02/29/20 20:29: Bedside Glucose (Misc Panel) 207H 02/29/20 23:14: Bedside Glucose (Misc Panel) 215H 02/29/20 23:45: Anion Gap 5L, Glomerular Filtration Rate > 60.0, Calcium Level 8.7 03/01/20 05:12: Anion Gap 4L, Glomerular Filtration Rate > 60.0, Calcium Level 8.6, Immature Granulocyte % (Auto) 0.9, Neutrophils (%) (Auto) 67.9H, Lymphocytes (%) (Auto) 21.1L, Monocytes (%) (Auto) 5.3H, Eosinophils (%) (Auto) 4.4H, Basophils (%) (Auto) 0.4, Neutrophils # (Auto) 4.7, Lymphocytes # (Auto) 1.4L, Monocytes # (Au to) 0.4, Eosinophils # (Auto) 0.3, Basophils # (Auto) 0.0, Nucleated Red Blood Cells % (auto) 0.0, Magnesium Level 2.1, Total Bilirubin 1.0, Aspartate Amino Transf (AST/SGOT) 40H, Alanine Aminotransferase (ALT/SGPT) 46, Alkaline Phosphatase 289H, Total Protein 5.3L, Albumin 1.8L, Albumin/Globulin Ratio 0.5L 03/01/20 06:04: Bedside Glucose (Misc Panel) 250H 03/01/20 08:03: Vancomycin Level Trough 16.0 03/01/20 11:15: Bedside Glucose (Misc Panel) 258H CBC/BMP Laboratory Tests 02/29/20 23:45 03/01/20 05:12 Microbiology Microbiology 02/28/20 Gram Stain - Final, Complete 02/28/20 Sputum Culture - Final, Complete Yeast Like Organism 02/28/20 Gram Stain - Final, Complete 02/28/20 CSF Culture - Final, Complete 02/28/20 - Final, Complete 02/27/20 Blood Culture - Preliminary, Resulted No Growth after 48 hours. All Specime... 02/27/20 Blood Culture - Preliminary, Resulted No Growth after 48 hours. All Specime... YOJANA DESAI MD Mar 01, 2020 12:08
[2020-03-01] MEDS: KCL 20MEQ IN 0.45NS 1000ML 1,000 ML IV SCH (12:20)
[2020-03-01] MEDS ORDERED: ACETAMINOPHEN TAB 650MG DOSE (2X325MG) PO PRN (15:45)
[2020-03-01] MEDS: LEVEMIR (INSULIN DETEMIR) 1 UNITS/0.01ML SC SCH (19:43)
[2020-03-01] MEDS ORDERED: lisinopriL 20 MG TAB PO SCH (21:00)
[2020-03-01] MEDS ORDERED: HumaLOG INSULIN (NovoLOG) PER UNIT SC SCH (21:00)
[2020-03-02] MEDS: PIPERACILLIN/TAZOBACTAM SOD 3.375 GM in D5W MINI-BAG PLUS 50 ML IV SCH ×3 (00:11→12:58)
[2020-03-02 04:00] VITALS: BP 142/82
[2020-03-02 06:31] LABS: BASO % 0.5 % (0.0-1.0); EOS # 0.2 10^3/uL (0.0-0.5); EOS % 4.1 % (0.0-3.0); HEMATOCRIT 31.9 % (36.0-47.0); HEMOGLOBIN 10.6 g/dl (12.0-15.5); LYMPH # 1.6 10^3/uL (1.5-5.0); LYMPH % 26.5 % (24.0-44.0); MEAN CORPUSCULAR HEMOGLOBIN 30.2 pg (27.0-33.0); MEAN CORPUSCULAR HGB CONC 33.2 g/dl (32.0-36.5); MEAN CORPUSCULAR VOLUME 90.9 fl (80.0-96.0); MONO # 0.4 10^3/uL (0.0-0.8); MONO % 6.8 % (0.0-5.0); NEUTROPHILS # 3.6 10^3/uL (1.5-8.5); NEUTROPHILS % 61.1 % (36.0-66.0); PLATELET COUNT, AUTOMATED 262 10^3/uL (150-450); RED BLOOD COUNT 3.51 10^6/uL (4.00-5.40); WHITE BLOOD COUNT 5.9 10^3/uL (4.0-10.0)
[2020-03-02 07:11] LABS: ALBUMIN 1.7 GM/DL (3.2-5.2); ALT/SGPT 36 U/L (12-78); BILIRUBIN,TOTAL 0.5 MG/DL (0.2-1.0); BLOOD UREA NITROGEN 7 MG/DL (7-18); CALCIUM LEVEL 8.6 MG/DL (8.5-10.1); CARBON DIOXIDE LEVEL 26 MEQ/L (21-32); CHLORIDE LEVEL 111 MEQ/L (98-107); CREATININE FOR GFR 0.79 MG/DL (0.55-1.30); GLOMERULAR FILTRATION RATE > 60.0 (>58); GLUCOSE, FASTING 157 MG/DL (70-100); MAGNESIUM LEVEL 1.9 MG/DL (1.8-2.4); POTASSIUM SERUM 3.1 MEQ/L (3.5-5.1); SODIUM LEVEL 142 MEQ/L (136-145); TOTAL PROTEIN 5.1 GM/DL (6.4-8.2)
[2020-03-02 08:00] VITALS: BP 165/84
[2020-03-02] MEDS ORDERED: POTASSIUM CHLORIDE 10 MEQ SR TABLET PO ONE (08:00)
[2020-03-02] MEDS: KCL 20MEQ IN 0.45NS 1000ML 1,000 ML IV SCH (08:11)
[2020-03-02] MEDS: HumaLOG INSULIN (NovoLOG) PER UNIT SC SCH ×2 (09:27→12:00)
[2020-03-02] MEDS: ENOXAPARIN 40MG/0.4ML SYRINGE (J1650 PER 10MG) SC SCH (09:28)
[2020-03-02] MEDS: PANTOPRAZOLE 40MG VIAL (C9113 PER 1) IV SCH (09:28)
[2020-03-02] MEDS ORDERED: INSUDET SC (10:16)
[2020-03-02] MEDS ORDERED: AUGM875T28 PO (10:16)
[2020-03-02] MEDS ORDERED: BACITAB PO (10:16)
[2020-03-02] MEDS ORDERED: AMLO10TA PO (10:18)
[2020-03-02] MEDS ORDERED: SELF1KIT MC (10:18)
--- NOTE | 2020-03-02 10:26 | IPNPDOC ---
Date Seen The patient was seen on 03/02/20. Progress Note SUBJECTIVE: much more alert and awake. wants to go home today.no cough while eating breakfast. denies sob,fever, chills. no other issues per RN. OBJECTIVE PHYSICAL EXAMINATION: VITAL SIGNS: Please see below. GENERAL: aaox 3 no distress HEENT: no jvd no carotid bruits right triple lumen in IJ CARDIOVASCULAR: RRR S1S2 RESPIRATORY: CTAB AEBE ABDOMINAL: +BS soft nt nd obese EXTREMITIES: no cyanosis or clubbing LABORATORY DATA, IMAGING STUDIES, MICROBIOLOGY: Please see below. 49 year old female with history of bipolar disoroder/anxiety/depression, obesity bmi 32.6 brought in due to mental status changes admitted for serotonin syndrome, acute metabolic encephalopathy, acute hypoxic encephalopathy requring intubation, aspiration pneumonia, HTN urgency, uncontrolled DM 2. Acute hypoxic respiratory failure s/p intubation on 02/27/20 and extubated on 02/29/20 due to acute metabolic encephalopathy, aspiration, serotonin syndrome on room air and comfortable serotonin syndrome off psych meds outpt fu w psych Aspiration pneumonia CXR 02/28/20 shows New considerable right lower lobe opacities suggesting elements of consolidation/collapse and pleural effusion causing volume loss and ipsila teral mediastinal shift. s/p vanco no signs of aspiration on swallow evaluation with recommendations for thin liquids and regular diet zosyn for gram neg and anaerobic coverage changed to augmentin as outpt Acute Metabolic encephalopathy due to Serotonin syndrome resolved Hypertensive urgency,resolved resumed on home lisinopril added norvasc to achieve goal sbp <130mmHg. Uncontrolled DM2, resolved on levemir consistent carbs iss w coverage fingersticks qachs Anxiety/depression/Bipolar held all home meds. obesity bmi 32.6 complicating care disposition: needs 2 wheeled walker. if cleared by OT, may dc home w home care for bp and glucose check. immediate 5day fu w pcp and 7day fu appt w psychiatrist. VS, I&O, 24H, Fishbone Vital Signs/I&O Vital Signs Date Time Temp Pulse Resp B/P (MAP) Pulse Ox O2 Delivery O2 Flow Rate FiO2 03/02/20 08:00 97.7 76 18 165/84 (111) 99 Room Air 03/01/20 04:00 2.0 02/29/20 09:45 28 I&O- Last 24 Hours up to 6 AM 03/02/20 06:00 Intake Total 4120 ml Output Total 2800 ml Balance 1320 ml Laboratory Data 24H LABS Laboratory Tests 2 03/01/20 11:15: Bedside Glucose (Misc Panel) 258H 03/01/20 16:23: Bedside Glucose (Misc Panel) 213H 03/01/20 19:34: Bedside Glucose (Misc Panel) 249H 03/02/20 06:15: Immature Granulocyte % (Auto) 1.0, Neutrophils (%) (Auto) 61.1, Lymphocytes (%) (Auto) 26.5, Monocytes (%) (Auto) 6.8H, Eosinophils (%) (Auto) 4.1H, Basophils (%) (Auto) 0.5, Neutrophils # (Auto) 3.6, Lymphocytes # (Auto) 1.6, Monocytes # (Auto) 0.4, Eosinophils # (Auto) 0.2, Basophils # (Auto) 0.0, Nucleated Red Blood Cells % (auto) 0.0, Anion Gap 5L, Glomerular Filtration Rate > 60.0, Calcium Level 8.6, Magnesium Level 1.9, Total Bilirubin 0.5, Aspartate Amino Transf (AST/SGOT) 25, Alanine Aminotransferase (ALT/SGPT) 36, Alkaline Phosphatase 264H, Total Protein 5.1L, Albumin 1.7L, Albumin/Globulin Ratio 0.5L CBC/BMP Laboratory Tests 03/02/20 06:15 Microbiology Microbiology 02/28/20 Gram Stain - Final, Complete 02/28/20 Sputum Culture - Final, Complete Yeast Like Organism 02/28/20 Gram Stain - Final, Complete 02/28/20 CSF Culture - Final, Complete 02/28/20 - Final, Complete 02/27/20 Blood Culture - Preliminary, Resulted No Growth after 72 hours. All specime... 02/27/20 Blood Culture - Preliminary, Resulted No Growth after 72 hours. All specime... RUTHIE VELAZQUEZ MD Mar 02, 2020 10:26
[2020-03-02 10:29] VITALS: BP 165/84
--- NOTE | 2020-03-02 10:49 | REP ---
INDICATION: s/p extubation cough COMPARISON: 02/29/2020 TECHNIQUE: Portable AP view of the chest FINDINGS: Endotracheal tube and nasogastric tube have been removed. Right IJ line with tip in the SVC. The mediastinum and cardiac silhouette are stable and within normal limits for portable technique. The lung jett are clear without acute consolidation, effusion, or pneumothorax. Skeletal structures are intact. IMPRESSION: 1. Status post extubation. 2. Lung jett are clear. <Electronically signed by Heron Salvador > 03/02/20 1042
[2020-03-02] MEDS ORDERED: amLODIPine 10 MG TAB PO ONE (11:00)
[2020-03-02 12:00] VITALS: BP 167/88
--- NOTE | 2020-03-02 13:45 | DS.PDOC ---
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 PROCEDURE DURING THIS ADMISSION: RIGHT INTERNAL JUGULAR CENTRAL VENOUS CATHETER PLACEMENT 02/27/20 -DR JUAREZ DISCHARGE DIAGNOSES: Serotonin Syndrome Acute Metabolic encephalopathy Acute hypoxic respiratory failure s/p intubation and mecahnical ventilation 02/27/20 and extubation 02/29/20 Aspiration pneumonia Hypertensive Urgency Uncontrolled DM 2 Anxiety/Depression/Bipolar disorder DISCHARGE MEDICATIONS: SEE BELOW DISCHARGE INSTRUCTIONS: PCP AND PSYCHIATRIST FU APPT WITHIN 5-7DAYS HISTORY OF PRESENTING ILLNESS: 49 year old female with h/o bioplar anxiety depression brought in to the ER with c/o agitation, thrashing about, feeling sick,nausea, and urine incontinence. She had BP of 240/120, hyperglycemic with Sugars> 600. CT head was negative for any acute events. She was given IV haldol, ativan, valium for agitation, but vomitted with coffee ground emesis, and intubated by anesthesia for airway compromise due to aspiration. For uncontrolled HTN, she received iv labetalol, hydralazine, and vasotec. CXR: no acute cardiopulmonary process. EKG: no st elevation. IV regular insulin was given, and iv levemir started after extubation. Due to aspiration, iv zosyn started for pneumonia. For IV access, elías Damon placed right ij line. HOSPITAL COURSE: Acute hypoxic respiratory failure s/p intubation on 02/27/20 and extubated on 02/29/20 due to acute metabolic encephalopathy, aspiration, serotonin syndrome now on room air and comfortable serotonin syndrome off psych meds outpt fu w psych Aspiration pneumonia CXR 02/28/20 shows New considerable right lower lobe opacities suggesting elements of consolidation/collapse and pleural effusion causing volume loss and ipsilateral mediastinal shift. s/p vanco no signs of aspiration on swallow evaluation with recommendations for thin liquids and regular diet zosyn for gram neg and anaerobic coverage changed to augmentin as outpt Acute Metabolic encephalopathy due to Serotonin syndrome resolved Hypertensive urgency,resolved resumed on home lisinopril added norvasc to achieve goal sbp <130mmHg. Uncontrolled DM2, resolved on levemir consistent carbs iss w coverage fingersticks qachs Anxiety/depression/Bipolar held all home meds. obesity bmi 32.6 complicating care DISCHARGE PHYSICAL EXAMINATION: VITAL SIGNS: Please see below. GENERAL: aaox 3 no distress HEENT: no jvd no carotid bruits right triple lumen in IJ CARDIOVASCULAR: RRR S1S2 RESPIRATORY: CTAB AEBE ABDOMINAL: +BS soft nt nd obese EXTREMITIES: no cyanosis or clubbing LABORATORY DATA, IMAGING STUDIES, MICROBIOLOGY: Please see below. Exam: CT Head without Contrast Exam date and time: 02/27/20 (7:47am) Age: 49 years old Clinical indication: Fall. Blunt trauma. AMS. TECHNIQUE: Imaging protocol: Computed tomography of the head without contrast. Radiation optimization: All CT scans at this facility use at least one of these dose optimization techniques: automated exposure control; mA and/or kV adjustment per patient size (includes targeted exams where dose is matched to clinical indication); or iterative reconstruction. COMPARISON: CT HEAD of 06/07/17 FINDINGS: Brain: [id number] atrophy (advanced for the stated age of this patient). No acute hemorrhage. No mass effect. Cerebral ventricles: No ventriculomegaly. Bones/joints: Unremarkable. No acute fracture. Paranasal sinuses: Visualized sinuses are unremarkable. No air-fluid levels. Mastoid air cells: Visualized mastoid air cells are well aerated. Soft tissues: Unremarkable. IMPRESSION: No acute intracranial pathology is appreciated. Atrophic changes, which have progressed since May 2017. Electronically signed by: Ariana Orozco On 02/27/2020 08:30:03 AM 02/27/20 CHEST XRAY: INDICATION: ams COMPARISON: 06/07/2017 TECHNIQUE: Portable AP view of the chest FINDINGS: The mediastinum and cardiac silhouette are stable and within normal limits for portable technique. The lung jett are clear without acute consolidation, effusion, or pneumothorax. Skeletal structures are intact. IMPRESSION: No acute cardiopulmonary process appreciated. <Electronically signed by Heron Salvador > 02/27/20 0818 TIME SPENT ON DISCHARGE: 30 MINUTES Vital Signs/I&Os Vital Signs Date Time Temp Pulse Resp B/P (MAP) Pulse Ox O2 Delivery O2 Flow Rate FiO2 03/02/20 12:00 98.1 80 18 167/88 (114) 95 Room Air 03/01/20 04:00 2.0 02/29/20 09:45 28 I&O- Last 24 Hours up to 6 AM 03/02/20 06:00 Intake Total 4120 ml Output Total 2800 ml Balance 1320 ml Laboratory Data Labs 24H Laboratory Tests 2 03/01/20 16:23: Bedside Glucose (Misc Panel) 213H 03/01/20 19:34: Bedside Glucose (Misc Panel) 249H 03/02/20 06:15: Immature Granulocyte % (Auto) 1.0, Neutrophils (%) (Auto) 61.1, Lymphocytes (%) (Auto) 26.5, Monocytes (%) (Auto) 6.8H, Eosinophils (%) (Auto) 4.1H, Basophils (%) (Auto) 0.5, Neutrophils # (Auto) 3.6, Lymphocytes # (Auto) 1.6, Monocytes # (Auto) 0.4, Eosinophils # (Auto) 0.2, Basophils # (Auto) 0.0, Nucleated Red Blood Cells % (auto) 0.0, Anion Gap 5L, Glomerular Filtration Rate > 60.0, Calcium Level 8.6, Magnesium Level 1.9, Total Bilirubin 0.5, Aspartate Amino Transf (AST/SGOT) 25, Alanine Aminotransferase (ALT/SGPT) 36, Alkaline Phosphatase 264H, Total Protein 5.1L, Albumin 1.7L, Albumin/Globulin Ratio 0.5L 03/02/20 11:50: Bedside Glucose (Misc Panel) 155H CBC/BMP Laboratory Tests 03/02/20 06:15 FSBS Laboratory Tests Test 03/01/20 16:23 03/01/20 19:34 03/02/20 11:50 Range/Units Bedside Glucose (Misc Panel) 213 249 155 70-105 MG/DL Microbiology Microbiology 02/28/20 Gram Stain - Final, Complete 02/28/20 Sputum Culture - Final, Complete Yeast Like Organism 02/28/20 Gram Stain - Final, Complete 02/28/20 CSF Culture - Final, Complete 02/28/20 - Final, Complete 02/27/20 Blood Culture - Preliminary, Resulted No Growth after 72 hours. All specime... 02/27/20 Blood Culture - Preliminary, Resulted No Growth after 72 hours. All specime... Discharge Medications Scheduled Amlodipine Besylate (Norvasc) 10 Mg Tablet, 10 MG PO DAILY Amoxicillin/Potassium Clav (Augmentin 875-125 Tablet) 1 Each Tablet, 875 MG PO BID Insulin Detemir (Levemir) 100 Unit/1 Ml Vial, 25 UNITS SC QHS L.acidoph/L.bulg/Van/Cinthia (Bacid Caplet) 1 Each Tablet, 1 TAB PO WM Lisinopril (Lisinopril) 20 Mg Tablet, 20 MG PO QHS, (Reported) Allergies Coded Allergies: No Known Allergies (Unverified , 02/20/19) RUTHIE VELAZQUEZ MD Mar 02, 2020 13:28
[2020-03-02] MEDS ORDERED: BASA100I SC (13:54)
[2020-03-02] MEDS ORDERED: BD P31MI2 SC (15:52)
[2020-03-03 00:06] LABS: HSV TYPE I IgM AB <1:10 titer (<1:10); HSV TYPE II IgM ABY <1:10 titer (<1:10); HSV-1 DNA Negative (Negative); HSV-2 DNA Negative (Negative)
== END 2020-03-02 16:22 | disposition home health service (06) | DRG 812 ==
LOC: M ED 04:44 → M ED INP 09:24 → ENRESERV 09:40 → M PCU 12:34
PROVIDERS: ADMIT Internal Medicine Nephrology; ATTEND General Practice
PROC: 5A1945Z Respiratory Ventilation, 24-96 Consecutive Hours (ICD-10-PCS; principal; 2020-02-27)
DX: T43.221A Poisoning by selective serotonin reuptake inhibitors, accidental (unintentional), initial encounter (principal); J96.01 Acute respiratory failure with hypoxia; J69.0 Pneumonitis due to inhalation of food and vomit; G93.41 Metabolic encephalopathy; E87.2 Acidosis; E11.40 Type 2 diabetes mellitus with diabetic neuropathy, unspecified; F31.9 Bipolar disorder, unspecified; E11.65 Type 2 diabetes mellitus with hyperglycemia; I16.0 Hypertensive urgency; E87.6 Hypokalemia; E66.9 Obesity, unspecified; Z68.32 Body mass index [BMI] 32.0-32.9, adult; F41.9 Anxiety disorder, unspecified; Z79.899 Other long term (current) drug therapy; K21.9 Gastro-esophageal reflux disease without esophagitis; E78.00 Pure hypercholesterolemia, unspecified; I25.10 Atherosclerotic heart disease of native coronary artery without angina pectoris; Z87.891 Personal history of nicotine dependence; Z79.4 Long term (current) use of insulin

== ENCOUNTER 2020-03-29 17:27 | Observation (INO) | payer OTHER ==
[~2020-03-29] VITALS: Ht 165.1 cm; Wt 84.5 kg
[~2020-03-29 17:27] MED LIST changes: +AMLO10TA PO; +ARIP1TAB PO; +AUGM875T28 PO; +BACITAB PO; +BD P31MI2 SC; +BUSP30TA PO; +CYCL-707 PO; +GABA-282 PO; -GABA-843 PO; -LISI-538 PO; +LISI20TA33 PO; +MED REC COMMENT; +PARO40TA3 PO; +SELF1KIT MC; +TRAZ-186 PO
--- OUTSIDE RECORDS SUMMARY | 2020-03-29 17:37 | CCD ---
Author Organization Unknown Address [address] [place] [address] Phone [phone] Care Team Providers Care Hand Laster Name Role Phone Syl Huynh Unavailable Unavailable Allergies None recorded. Medications Name Status Start Date Stop Date amoxicillin 500 mg capsule TAKE ONE CAPSULE BY MOUTH THREE TIMES A DAY FOR 7 DAYS Completed 03/04/2020 amoxicillin 875 mg tablet TAKE ONE TABLET BY MOUTH EVERY 12 HOURS FOR 10 DAYS Completed 03/04/2020 aripiprazole 10 mg tablet TAKE ONE TABLET BY MOUTH EVERY DAY Completed 02/26 aspirin 81 mg tablet,delayed release TAKE ONE TABLET BY MOUTH DAILY Active Not avai lable atenolol 100 mg tablet TAKE ONE TABLET BY MOUTH DAILY Completed 03/08/19 atorvastatin 10 mg tablet TAKE 1 TABLET BY MOUTH EVERY DAY AT BEDTIME Completed 03/08/2020 Augmentin 875 mg-125 mg tablet Take 1 tablet every 12 hours by oral route. Completed 03/11/2020 Bacid with Lactospore 1 billion cell cap lisa Take 1 capsule by oral route with meals. Active Not available Basaglar KwikPen U-100 Insulin 100 unit/ mL (3 mL) subcutaneous Inject 25 units every day by subcutaneous route at bedtime. Active Not available BD Ultra-Fine Mini Pen Needle 31 gauge x 3/16" DIRECTED BEFORE MEALS AND AT BEDTIME Active Not available buspirone 15 mg tablet TAKE 1 TABLET BY MOUTH TWICE A DAY Completed 02/26 buspirone 30 mg tablet TAKE ONE TABLET BY MOUTH TWICE A DAY Active No t available cefuroxime axetil 500 mg tablet TAKE 1 TABLET BY MOUTH TWO TIMES A DAY Completed 03/04/2020 cephalexin 500 mg capsule TAKE ONE CAPSULE BY MOUTH TWICE A DAY DIRECTED FOR 10 DAYS Completed 03/04/2020 cholecalciferol (vitamin D3) 50 mcg (2,0 00 unit) tablet TAKE ONE TABLET BY MOUTH DAILY WITH DINNER Completed 03/04/2020 cyclobenzaprine 10 mg tablet TAKE ONE TABLET BY MOUTH THREE TIMES A DAY FOR 7 DAYS Completed 03/04/2020 cyclopentolate 1 % eye drops INSTILL 1 DROP INTO LEFT EYE TWO TIMES A DAY DIRECTED Completed 03/04/2020 Deblitane 0.35 mg tablet TAKE ONE TABLET BY MOUTH EVERY DAY Completed 02/26 famotidine 40 mg tablet TAKE 1 TABLET BY MOUTH DAILY Active Not availa ble fenofibrate 160 mg tablet TAKE ONE TABLET BY MOUTH DAILY Completed 03/08/19 fluconazole 100 mg tablet TAKE 2 TABLETS BY MOUTH ON FIRST DAY AND THEN 1 TABLET FOR THE NEXT 6 DAYS Completed 03/04/2020 fluconazole 150 mg tablet TAKE 1 TABLET BY MOUTH FOR 1 DOSE THEN 1 TABLET IN 3 DAYS Completed 03/04/2020 Hibiclens 4 % topical liquid WASH INTO AFFECTED AREA TWO TIMES A DAY FOR 10 DAYS Completed 03/04/2020 hydrocodone 5 mg-acetaminophen 325 mg ta blet TAKE ONE TABLET BY MOUTH TWICE A DAY NEEDED FOR PAIN MAXIMUM DAILY DOSE 2 TABLETS Completed 03/08/2020 ketorolac 10 mg tablet TAKE ONE TABLET BY MOUTH EVERY 6 HOURS FOR 5 DAYS Completed 03/08/2020 levothyroxine 125 mcg tablet TAKE ONE TABLET BY MOUTH EVERY MORNING BEFORE BREAKFAST Active Not available lisinopril 20 mg tablet TAKE ONE TABLET BY MOUTH DAILY Active Not avai lable metformin 1,000 mg tablet TAKE ONE TABLET BY MOUTH TWICE A DAY Completed Norvasc 10 mg tablet Take 1 tablet every day by oral route. Active Not available OneTouch Delica Plus Lancet 33 gauge TEST FOUR TIMES A DAY Completed 03/08/2020 OneTouch Ultra Blue Test Strip TEST FOUR TIMES A DAY Completed 03/08/2020 OneTouch Ultra2 Meter USE DIRECTED Completed 03/08/2020 oxybutynin chloride 5 mg tablet TAKE ONE TABLET BY MOUTH TWICE A DAY Active No t available paroxetine 40 mg tablet TAKE 1 TABLET BY MOUTH ONCE A DAY Active Not a vailable prednisolone acetate 1 % eye drops,suspe nsion INSTILL 1 DROP INTO THE LEFT EYE DIRECTED EVERY HOUR Completed 03/08/2020 prednisone 10 mg tablet TAKE 2 TABLETS BY MOUTH ONCE A DAY Completed 02/26 Tiffanie-Bid 1 billion cell-250 mg tablet TAKE 1 TABLET BY MOUTH WITH MEALS Active Not a vailable terconazole 0.4 % vaginal cream INSERT ONE APPLICATORFUL VAGINALLY AT BEDTIME FOR 7 NIGHTS Completed 03/08/2020 tizanidine 4 mg tablet TAKE ONE TABLET BY MOUTH EVERY 8 HOURS NEEDED Completed 03/08/2020 trazodone 50 mg tablet TAKE 1 TABLET BY MOUTH EVERY NIGHT MAY TAKE 2 TABLETS NEEDED Active Not available triamcinolone acetonide 0.1 % topical cr eam APPLY TO HANDS TWO TIMES A DAY FOR 14 DAYS AVOID CREAM TO FACE Completed 03/08/2020 triamterene 37.5 mg-hydrochlorothiazide 25 mg capsule TAKE ONE CAPSULE BY MOUTH DAILY Completed 021 Trulicity 0.75 mg/0.5 mL subcutaneous pe n injector INJECT 0.75MG UNDER THE SKIN ONCE A WEEK Completed 03/08/2020 Trulicity 1.5 mg/0.5 mL subcutaneous pen injector INJECT 1.5MG UNDER THE SKIN WEEKLY Active Not available valacyclovir 1 gram tablet TAKE ONE TABLET BY MOUTH TWO TIMES A DAY FOR 3 DAYS Completed 03/08/2020 Problems Name Status Onset Date Source Vitamin D Deficiency Active 04/12/2012 History Dyspnea Active 10/10/2012 History Clinical Finding Active 11/13/2013 History Breast Lump Active 11/25/2013 History Contact Dermatitis Active 06/24/2014 History Finding by Site Active 07/09/2014 History Influenza Vaccine Needed Active 12/16/2014 History Tremor Active 02/03/2015 History Hyperlipidemia Active 07/07/2015 History Pain of Left Upper Arm Active 08/03/2015 History Long-term Current Use of Insulin Active 02/17/2016 History Clinical Finding Active 02/17/2016 History Severe Obesity Active 01/23/2017 History Bipolar Disorder Active 01/23/2017 History Vaginolabial Hernia Active 01/23/2017 History Finding of Body Mass Index Active 01/23/2017 Histo ry Under Immunized Active 01/23/[address] Concept Active 01/23/2018 History Nasal Congestion Active 03/26/2018 History Pharyngeal Finding Active 03/26/2018 History Urge Incontinence of Urine Active 11/13/2018 Histo ry Acute Vaginitis Active 11/29/2018 History Cellulitis Active 11/29/2018 History Rectal Abscess Active 12/20/2018 History Breast Neoplasm Screening Status Active 12/20/2018 History Abscess of Groin Active 03/04/2019 History Evaluation Finding Active 03/04/2019 History Clinical History and Observation Findings Active 2019 History Type 2 Diabetes Mellitus Active 03/11/2020 Nausea Active 03/11/2020 Hypothyroidism Active History Depressive Disorder Active History Hypertensive Disorder Active History Asthma Active History Abnormal Cytology Findings Active Histo ry Procedures Date Name Performed by Cholecystectomy Information not avai lable Notes: cyst removal (groin) Results Lab Results None recorded. Past Encounters 03/11/2020 Anemia; Acquired Cerebral Atrophy; Bipolar Disorder; Long-term Current Use of Insulin; Type 2 Diabetes Mellitus; Hypertensive Disorder; Type 2 Diabetes Mellitus without Complication; Nausea Williams Rojas MD: [address] [place] [address], Ph. Social History Tobacco Smoking Status Former Smoker Vaccine List Vaccine Type influenza, injectable, quadrivalent, pre servative free 12/20/20180.5 mL influenza, seasonal, injectable 12/16/20140.5 mL 01/23/20180.5 mL pneumococcal polysaccharide PPV23 12/16/20140.5 mL Plan of Care Reminders Provider Appointments None recorded. Lab None recorded. Referral None recorded. Procedures None recorded. Surgeries None recorded. Imaging None recorded. Vitals 03/11/2020 09:20AM TCM Height Weight BMI Blood Pressure 64.5 in 183 lbs 4 oz 31 kg/m2 123/91 mm[Hg] 07/04/2019 Height Weight Blood Pressure 64.5 in 223 lbs 2.08 oz 107/77 mm[Hg] 04/29/2019 Height Weight Blood Pressure 64.5 in 215 lbs 124/83 mm[Hg] 03/04/2019 Height Weight Blood Pressure 64.5 in 213 lbs 124/86 mm[Hg] 02/07/2019 Height Weight Blood Pressure 64.5 in 214 lbs 108/75 mm[Hg] 12/20/2018 Height Weight Blood Pressure 64.5 in 210 lbs 137/94 mm[Hg] 12/06/2018 Height Weight Blood Pressure 64.5 in 214 lbs 12.8 oz 141/96 mm[Hg] 11/29/2018 Height Weight Blood Pressure 64.5 in 218 lbs 12.8 oz 119/88 mm[Hg] 11/13/2018 Height Weight Blood Pressure 64.5 in 227 lbs 138/88 mm[Hg] 03/26/2018 Height Weight Blood Pressure 64.5 in 238 lbs 6.4 oz 96/68 mm[Hg]
--- OUTSIDE RECORDS SUMMARY | 2020-03-29 17:37 | CCD ---
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 Name Role Phone Dipti Servin PCP Allergies, Adverse Reactions, Alerts No Data in Section Problem List Concept Problem Description Status Start Date Created Date Resolv ed Date Snomed Code F31.9 Bipolar I Disorder, Current or most recent episo de unspecified Active 01/13/2015 01/13/2015 F41.9 Unspecified Anxiety Disorder Active 01/13/2015 01/13/2015 Medications Rx Norm Medication Route Route Concept Start Date Stop Date Dosage Franko quency Duration Formula Strength Dosage Form Dosage Form Code Dosage Description Medication Id Account Npid Author First Name Author Last Name Taxonomy Code Taxonomy Desc Phone Number [id number] buspirone 05/28/2019 twice a day 30 mg tablet [id number] [id number] Dipti MartinezLexxleatha [id number] [facility] [phone] [id number] paroxetine HCl by mouth [id number] 05/28/2019 04/13/2020 once a day 30 40 mg tablet [id number] Dipti MartinezLexxleatha [id number] [facility] [phone] Latuda by mouth [id number] 01/14/2020 04/13/2020 twice a day 30 2 0 mg tablet [id number] [id number] Dipti Servin [id number] [facility] [phone] Social History Social History Element Description Concept Effective Date Smoking Status Unknown if ever smoked [id number] Immunizations No Data in Section Vital Signs Encounter Date Height Ins Weight Lbs Bmi Bp Systolic Bp Diastoli c Oxygen Saturation Respiration Rate Pulse Rate Body Temp Head Circumference Heigh t Lying 03/10/2020 0.00 212.00 0.00 0 0 0.00 0 0 0.00 0.0 0. 00 Procedures Date Concept Id Description Targeted Site Concept Targeted Site Concept Type 03/10/2020 [id number] [facility] Telemed E/M Lvl 3--Est pt CPT Patient has no history of implantable de vices Encounters Encounter Start Date End Date Encounter Type Description Diagnosis Di agnosis Desc Location Author First Name Author Last Name Npid Taxonomy Cod e Taxonomy Desc Phone Number Location Addr1 Location Addr2 Location [facility] Location Sta te Location Zip [id number] 03/10/2020 03/10/2020 [id number] [facility] Telemed E/M Lvl 3--Est p t F31.[address], [address] [facility] [id number] [facility] [phone] [address] [address] Plan of Treatment No Data in Section Lab Results No Data in Section Instructions No Data in Section Functional Cognitive Status No Data in Section Insurance Providers Insurance Id Policy Effective Date Policy Thru Date Company N fuentes [id number] 2019 [employer] Managed Reshma joyner
--- OUTSIDE RECORDS SUMMARY | 2020-03-29 17:38 | CCD ---
Author Author [facility] Organization [facility] Address Unknown Phone Unavailable Care Team Providers Care Supervisor Steno Pool Name Role Phone Kayli Rojas MD Unavailable Unavailable Kayli Rojas MD Unavailable Unavailable Kayli Rojas MD Unavailable Unavailable Kayli Rojas MD Unavailable Unavailable Kayli Rojas MD Unavailable Unavailable Kayli Rojas MD Unavailable Unavailable Kayli Rojas MD Unavailable Unavailable Kayli Rojas MD Unavailable Unavailable Kayli Rojas MD Unavailable Unavailable Kayli Rojas MD Unavailable Unavailable Kayli Rojas MD Unavailable Unavailable Kayli Rojas MD Unavailable Unavailable Kayli Rojas MD Unavailable Unavailable Kayli Rojas MD Unavailable Unavailable Kayli Rojas MD Unavailable Unavailable Kayli Rojas MD Unavailable Unavailable Kayli Rojas MD Unavailable Unavailable Kayli Rojas MD Unavailable Unavailable Kayli Rojas MD Unavailable Unavailable Kayli Rojas MD Unavailable Unavailable Kayli Rojas MD Unavailable Unavailable Kayli Rojas MD Unavailable Unavailable Kayli Rojas MD Unavailable Unavailable Kayli Rojas MD Unavailable Unavailable Kayli Rojas MD Unavailable Unavailable Kayli Rojas MD Unavailable Unavailable Kayli Rojas MD Unavailable Unavailable Kayli Rojas MD Unavailable Unavailable Kayli Rojas MD Unavailable Unavailable Kayli Rojas MD Unavailable Unavailable Kayli Rojas MD Unavailable Unavailable Kayli Rojas MD Unavailable Unavailable Kayli Rojas MD Unavailable Unavailable Kayli Rojas MD Unavailable Unavailable Kayli Rojas MD Unavailable Unavailable Kayli Rojas MD Unavailable Unavailable Kayli Rojas MD Unavailable Unavailable Kayli Rojas MD Unavailable Unavailable Kayli Rojas MD Unavailable Unavailable Kayli Rojas MD Unavailable Unavailable Kayli Rojas MD Unavailable Unavailable Kayli Rojas MD Unavailable Unavailable Kayli Rojas MD Unavailable Unavailable Kayli Rojas MD Unavailable Unavailable Kayli Rojas MD Unavailable Unavailable Kayli Rojas MD Unavailable Unavailable Kayli Rojas MD Unavailable Unavailable Kayli Rojas MD Unavailable Unavailable Kayli Rojas MD Unavailable Unavailable Kayli Rojas MD Unavailable Unavailable Kayli Rojas MD Unavailable Unavailable Kayli Rojas MD Unavailable Unavailable Kayli Rojas MD Unavailable Unavailable Kayli Rojas MD Unavailable Unavailable Kayli Rojas MD Unavailable Unavailable Kayli Rojas MD Unavailable Unavailable Kayli Rojas MD Unavailable Unavailable Kayli Rojsa MD Unavailable Unavailable Kayli Rojas MD Unavailable Unavailable Kayli Rojas MD Unavailable Unavailable Kayli Rojas MD Unavailable Unavailable Kayli Rojas MD Unavailable Unavailable Kayli Rojas MD Unavailable Unavailable Kayli Rojas MD Unavailable Unavailable Kayli Rojas MD Unavailable Unavailable Kayli Rojas MD Unavailable Unavailable Kayli Rojas MD Unavailable Unavailable Kayli Rojas MD Unavailable Unavailable Kayli Rojsa MD Unavailable Unavailable Kayli Rojas MD Unavailable Unavailable Kayli Rojas MD Unavailable Unavailable Kayli Rojas MD Unavailable Unavailable Kayli Rojas MD Unavailable Unavailable Kayli Rojas MD Unavailable Unavailable Kayli Rojas MD Unavailable Unavailable Kayli Rojas MD Unavailable Unavailable Kayli Rojas MD Unavailable Unavailable Kayli Rojas MD Unavailable Unavailable Kayli Rojas MD Unavailable Unavailable Kayli Rojas MD Unavailable Unavailable Kayli Rojas MD Unavailable Unavailable Kayli Rojas MD Unavailable Unavailable Kayli Rojas MD Unavailable Unavailable Kayli Rojas MD Unavailable Unavailable Kayli Rojas MD Unavailable Unavailable Kayli Rojas MD Unavailable Unavailable Kayli Rojas MD Unavailable Unavailable Kayli Rojas MD Unavailable Unavailable Kayli Rojas MD Unavailable Unavailable BARAYUGA, Yoana HERRERA MD Unavailable Unavailable BARAYUGA, Yoana HERRERA MD Unavailable Unavailable BARAYUGA, Yoana HERRERA MD Unavailable Unavailable BARAYUGA, Yoana HERRERA MD Unavailable Unavailable BARAYUGA, Yoana HERRERA MD Unavailable Unavailable BARAYUGA, Yoana HERRERA MD Unavailable Unavailable BARAYUGA, Yoana HERRERA MD Unavailable Unavailable BARAYUGA, Yoana HERRERA MD Unavailable Unavailable BARAYUGA, Yoana HERRERA MD Unavailable Unavailable BARAYUGA, Yoana HERRERA MD Unavailable Unavailable BARAYUGA, Yoana HERRERA MD Unavailable Unavailable BARAYUGA, Yoana HERRERA MD Unavailable Unavailable BARAYUGA, Yoana HERRERA MD Unavailable Unavailable BARAYUGA, Yoana HERRERA MD Unavailable Unavailable BARAYUGA, Yoana HERRERA MD Unavailable Unavailable BARAYUGA, Yoana HERRERA MD Unavailable Unavailable BARAYUGA, Yoana HERRERA MD Unavailable Unavailable BARAYUGA, Yoana HERRERA MD Unavailable Unavailable BARAYUGA, Yoana HERRERA MD Unavailable Unavailable BARERASTOUGA, Yoana HERRERA MD Unavailable Unavailable BARAYUGA, Yoana HERRERA MD Unavailable Unavailable BARAYUGAYoana MD Unavailable Unavailable BARAYUGAYoana MD Unavailable Unavailable BARAYUGAYoana MD Unavailable Unavailable BARAYUGA, Yoana HERRERA MD Unavailable Unavailable BARAYUGA, Yoana HERRERA MD Unavailable Unavailable BARERASTOUGA, Yoana HERRERA MD Unavailable Unavailable BARAYUGAYoana MD Unavailable Unavailable BARAYUGAYoana MD Unavailable Unavailable BARAYUGAYoana MD Unavailable Unavailable BARAYUGA, Yoana HERRERA MD Unavailable Unavailable BARAYUGAYoana MD Unavailable Unavailable BARAYUGAYoana MD Unavailable Unavailable Eadline, K Francheska Unavailable Unavailable Eadline, K Francheska Unavailable Unavailable Eadline, K Francheska Unavailable Unavailable Eadline, K Francheska Unavailable Unavailable Eadline, K Francheska Unavailable Unavailable Eadline, K Francheska Unavailable Unavailable Eadline, K Francheska Unavailable Unavailable Eadline, K Francheska Unavailable Unavailable Eadline, K Francheska Unavailable Unavailable Eadline, K Francheska Unavailable Unavailable Eadline, K Francheska Unavailable Unavailable Eadline, K Francheska Unavailable Unavailable Eadline, K Francheska Unavailable Unavailable Eadline, K Francheska Unavailable Unavailable Eadline, K Francheska Unavailable Unavailable Eadline, K Francheska Unavailable Unavailable Eadline, K Francheska Unavailable Unavailable Eadline, K Francheska Unavailable Unavailable Eadline, K Francheska Unavailable Unavailable Eadline, K Francheska Unavailable Unavailable Eadline, K Francheska Unavailable Unavailable Campanaro, Mare Milagros PA Unavailable Unavailable Campanaro, Mare Milagros PA Unavailable Unavailable Campanaro, Mare Milagros PA Unavailable Unavailable Campanaro, Mare Milagros PA Unavailable Unavailable Campanaro, Mare Milagros PA Unavailable Unavailable Campanaro, Mare Milagros PA Unavailable Unavailable Campanaro, Mare Milagros PA Unavailable Unavailable Campanaro, Mare Milagros PA Unavailable Unavailable Campanaro, Mare Milagros PA Unavailable Unavailable Campanaro, Mare Milagros PA Unavailable Unavailable Campanaro, Mare Milagros PA Unavailable Unavailable Campanaro, Mare Milagros PA Unavailable Unavailable Campanaro, Mare Milagros PA Unavailable Unavailable Campanaro, Mare Milagros PA Unavailable Unavailable Campanaro, Mare Milagros PA Unavailable Unavailable Campanaro, Mare Milagros PA Unavailable Unavailable Campanaro, Mare Milagros PA Unavailable Unavailable Campanaro, Mare Milagros PA Unavailable Unavailable Andrea, Jennifer Unavailable LYNDA, ELSA PA Unavailable Unavailable LYNDA, ELSA PA Unavailable Unavailable LYNDA, ELSA PA Unavailable Unavailable LYNDA, ELSA PA Unavailable Unavailable LYNDA, ELSA PA Unavailable Unavailable LYNDA, ELSA PA Unavailable Unavailable LYNDA, ELSA PA Unavailable Unavailable LYNDA, ELSA PA Unavailable Unavailable LYNDA, ELSA PA Unavailable Unavailable LYNDA, ELSA PA Unavailable Unavailable LYNDA, ELSA PA Unavailable Unavailable LYNDA, ELSA PA Unavailable Unavailable LYNDA, ELSA PA Unavailable Unavailable LYNDA, ELSA PA Unavailable Unavailable LYNDA, ELSA PA Unavailable Unavailable LYNDA, ELSA PA Unavailable Unavailable LYNDA, ELSA PA Unavailable Unavailable LYNDA, ELSA PA Unavailable Unavailable LYNDA, ELSA PA Unavailable Unavailable LYNDA, ELSA PA Unavailable Unavailable LYNDA, ELSA PA Unavailable Unavailable LYNDA, ELSA PA Unavailable Unavailable LYNDA, ELSA PA Unavailable Unavailable LYNDA, ELSA PA Unavailable Unavailable LYNDA, ELSA PA Unavailable Unavailable LYNDA, ELSA PA Unavailable Unavailable LYNDA, ELSA PA Unavailable Unavailable LYNDA, ELSA PA Unavailable Unavailable LYNDA, ELSA PA Unavailable Unavailable LYNDA, ELSA PA Unavailable Unavailable LYNDA, ELSA PA Unavailable Unavailable LYNDA, ELSA PA Unavailable Unavailable LYNDA, ELSA PA Unavailable Unavailable LYNDA, ELSA PA Unavailable Unavailable LYNDA, ELSA PA Unavailable Unavailable LYNDA, ELSA PA Unavailable Unavailable LYNDA, ELSA PA Unavailable Unavailable LYNDA, ELSA PA Unavailable Unavailable Liz, Dariana LABORER OPERATOR Unavailable Unavailable Liz, Dariana LABORER OPERATOR Unavailable Unavailable Liz, Dariana LABORER OPERATOR Unavailable Unavailable Liz, Dariana LABORER OPERATOR Unavailable Unavailable Liz, Dariana LABORER OPERATOR Unavailable Unavailable Liz, Dariana LABORER OPERATOR Unavailable Unavailable Liz, Dariana LABORER OPERATOR Unavailable Unavailable Liz, Dariana LABORER OPERATOR Unavailable Unavailable Liz, Dariana LABORER OPERATOR Unavailable Unavailable Liz, Dariana LABORER OPERATOR Unavailable Unavailable Liz, Dariana LABORER OPERATOR Unavailable Unavailable LETTIERE, A JESSICA PA Unavailable Unavailable LETTIERE, A JESSICA PA Unavailable Unavailable LETTIERE, A JESSICA PA Unavailable Unavailable LETTIERE, A JESSICA PA Unavailable Unavailable LETTIERE, A JESSICA PA Unavailable Unavailable LETTIERE, A JESSICA PA Unavailable Unavailable LETTIERE, A JESSICA PA Unavailable Unavailable LETTIERE, A JESSICA PA Unavailable Unavailable LETTIERE, A JESSICA PA Unavailable Unavailable LETTIERE, A JESSICA PA Unavailable Unavailable LETTIERE, A JESSICA PA Unavailable Unavailable LETTIERE, A JESSICA PA Unavailable Unavailable LETTIERE, A JESSICA PA Unavailable Unavailable LETTIERE, A JESSICA PA Unavailable Unavailable LETTIERE, A JESSICA PA Unavailable Unavailable LETTIERE, A JESSICA PA Unavailable Unavailable LETTIERE, A JESSICA PA Unavailable Unavailable LETTIERE, A JESSICA PA Unavailable Unavailable LETTIERE, A JESSICA PA Unavailable Unavailable LETTIERE, A JESSICA PA Unavailable Unavailable LETTIERE, A JESSICA PA Unavailable Unavailable LETTIERE, A JESSICA PA Unavailable Unavailable LETTIERE, A JESSICA PA Unavailable Unavailable LETTIERE, A JESSICA PA Unavailable Unavailable LETTIERE, A JESSICA PA Unavailable Unavailable LETTIERE, A JESSICA PA Unavailable Unavailable LETTIERE, A JESSICA PA Unavailable Unavailable LETTIERE, A JESSICA PA Unavailable Unavailable LETTIERE, A JESSICA PA Unavailable Unavailable Kelly Kumar MD Unavailable Unavailable Stacy Kelly Unavailable Unavailable Stacy Klely Unavailable Unavailable Stacy, Kelly Unavailable Unavailable Stacy, Kelly Unavailable Unavailable Stacy, Kelly Unavailable Unavailable Stacy, Kelly Unavailable Unavailable Stacy, Kelly MD Unavailable Unavailable Stacy, Kelly Unavailable Unavailable Stacy, Kelly MD Unavailable Unavailable Stacy, Kelly MD Unavailable Unavailable Stacy, Kelly Unavailable Unavailable Stacy, Kelly MD Unavailable Unavailable Stacy, Kelly MD Unavailable Unavailable Stacy, Kelly MD Unavailable Unavailable Stacy, Kelly MD Unavailable Unavailable Stacy, Kelly MD Unavailable Unavailable Stacy, Kelly MD Unavailable Unavailable Stacy, Kelly MD Unavailable Unavailable Stacy, Kelly MD Unavailable Unavailable Stacy, Kelly MD Unavailable Unavailable Stacy, Kelly MD Unavailable Unavailable Stacy Kelly MD Unavailable Unavailable Stacy, Kelly MD Unavailable Unavailable Stacy, Kelly MD Unavailable Unavailable Stacy, Kelly MD Unavailable Unavailable Stacy, Kelly MD Unavailable Unavailable Stacy, Kelly MD Unavailable Unavailable Stacy, Kelly MD Unavailable Unavailable StacyRamsesa Unavailable Unavailable Stacy, Kelly MD Unavailable Unavailable StacyRamsesa Unavailable Unavailable StacyRamsesa Unavailable Unavailable StacyKelly sandoval MD Unavailable Unavailable Rani SPICER MD Unavailable Unavailable Rani SPICER MD Unavailable Unavailable Rani SPICER MD Unavailable Unavailable Rani SPICER MD Unavailable Unavailable Rani SPICER MD Unavailable Unavailable Rani SPICER MD Unavailable Unavailable Rani SPICER MD Unavailable Unavailable Rani SPICER MD Unavailable Unavailable Rani SPICER MD Unavailable Unavailable Rani SPICER MD Unavailable Unavailable Rani SPICER MD Unavailable Unavailable Rani SPICER MD Unavailable Unavailable Rani SPICER MD Unavailable Unavailable Rani SPICER MD Unavailable Unavailable Rani SPICER MD Unavailable Unavailable Rani SPICER MD Unavailable Unavailable Rani SIPCER MD Unavailable Unavailable Rani SPICER MD Unavailable Unavailable Rani SPICER MD Unavailable Unavailable Rani SPICER MD Unavailable Unavailable Rani SPICER MD Unavailable Unavailable Rani SPICER MD Unavailable Unavailable Rain SPICER MD Unavailable Unavailable Rani SPICER MD Unavailable Unavailable Rani SPICER MD Unavailable Unavailable Rani SPICER MD Unavailable Unavailable Rani SPICER MD Unavailable Unavailable Rani SPICER MD Unavailable Unavailable Rani SPICER MD Unavailable Unavailable Rani SPICER MD Unavailable Unavailable Rani SPICER MD Unavailable Unavailable Rani SPICER MD Unavailable Unavailable Rani SPICER MD Unavailable Unavailable Rani SPICER MD Unavailable Unavailable Rani SPICER MD Unavailable Unavailable Rani SPICER MD Unavailable Unavailable NAYANRani GHOTRA MD Unavailable Unavailable Rani SPICER MD Unavailable Unavailable Rani SPICER MD Unavailable Unavailable Rani SPICER MD Unavailable Unavailable Rani SPICER MD Unavailable Unavailable Rani SPICER MD Unavailable Unavailable Rani SPICER MD Unavailable Unavailable Rani SPICER MD Unavailable Unavailable Rani SPICRE MD Unavailable Unavailable Rani SPICER MD Unavailable Unavailable Rani SPICER MD Unavailable Unavailable Rani SPICER MD Unavailable Unavailable Rani SPICER MD Unavailable Unavailable Rani SPICER MD Unavailable Unavailable Rani SPICER MD Unavailable Unavailable Rani SPICER MD Unavailable Unavailable Rani SPICER MD Unavailable Unavailable Rani SPICER MD Unavailable Unavailable Rani SPICER MD Unavailable Unavailable Rani SPICER MD Unavailable Unavailable Rani SPICER MD Unavailable Unavailable Rani SPICER MD Unavailable Unavailable Rani SPICER MD Unavailable Unavailable Rani SPICER MD Unavailable Unavailable Rani SPICER MD Unavailable Unavailable Rani SPICER MD Unavailable Unavailable Rani SPICER MD Unavailable Unavailable Rani SPICER MD Unavailable Unavailable Rani SPICER MD Unavailable Unavailable Rani SPICER MD Unavailable Unavailable Rani SPICER MD Unavailable Unavailable Rani SPICER MD Unavailable Unavailable Rani SPICER MD Unavailable Unavailable Rani SPICER MD Unavailable Unavailable Rani SPICER MD Unavailable Unavailable Rani SPICER MD Unavailable Unavailable Rani SPICER MD Unavailable Unavailable Rani SPICER MD Unavailable Unavailable Rani SPICER MD Unavailable Unavailable Rani SPICER MD Unavailable Unavailable Rani SPICER MD Unavailable Unavailable Rani SPICER MD Unavailable Unavailable NAYAN, Rani MEHTA MD Unavailable Unavailable NAYAN, Rani MEHTA MD Unavailable Unavailable NAYAN, Rani MEHTA MD Unavailable Unavailable NAYAN, Rani MEHTA MD Unavailable Unavailable NAYAN, Rani MEHTA MD Unavailable Unavailable MACQUEEN, DIPTI LABORER OPERATOR Unavailable Unavailable MACQUEEN, DIPTI LABORER OPERATOR Unavailable Unavailable MACQUEEN, DIPTI LABORER OPERATOR Unavailable Unavailable MACQUEEN, DIPTI LABORER OPERATOR Unavailable Unavailable MACQUEEN, DIPTI LABORER OPERATOR Unavailable Unavailable MACQUEEN, DIPTI LABORER OPERATOR Unavailable Unavailable MACQUEEN, DIPTI LABORER OPERATOR Unavailable Unavailable MACQUEEN, DIPTI LABORER OPERATOR Unavailable Unavailable MACQUEEN, DIPTI LABORER OPERATOR Unavailable Unavailable MACQUEEN, DIPTI LABORER OPERATOR Unavailable Unavailable MACQUEEN, DIPTI LABORER OPERATOR Unavailable Unavailable Lino, Syl STOCK ORDER LISTER STOCK ORDER LISTER Unavailable Unavailable Lino, A Syl STOCK ORDER LISTER Unavailable Unavailable Lino, A Syl STOCK ORDER LISTER Unavailable Unavailable Lino, A Syl STOCK ORDER LISTER Unavailable Unavailable Lino, A Syl STOCK ORDER LISTER Unavailable Unavailable Lino, A Syl STOCK ORDER LISTER Unavailable Unavailable Lino, A Syl STOCK ORDER LISTER Unavailable Unavailable Check, A Syl STOCK ORDER LISTER Unavailable Unavailable Check, A Syl STOCK ORDER LISTER Unavailable Unavailable Lino, A Syl STOCK ORDER LISTER Unavailable Unavailable Check, A Syl STOCK ORDER LISTER Unavailable Unavailable Check, A Syl STOCK ORDER LISTER Unavailable Unavailable Check, A Syl STOCK ORDER LISTER Unavailable Unavailable Check, A Syl STOCK ORDER LISTER Unavailable Unavailable Check, A Syl STOCK ORDER LISTER Unavailable Unavailable Lino, A Syl STOCK ORDER LISTER Unavailable Unavailable Lino, A Syl STOCK ORDER LISTER Unavailable Unavailable Lino, A Syl STOCK ORDER LISTER Unavailable Unavailable Check, A Syl STOCK ORDER LISTER Unavailable Unavailable Check, A Syl STOCK ORDER LISTER Unavailable Unavailable Check, A Syl STOCK ORDER LISTER Unavailable Unavailable Check, A Syl STOCK ORDER LISTER Unavailable Unavailable Check, A Syl STOCK ORDER LISTER Unavailable Unavailable Lino, A Syl STOCK ORDER LISTER Unavailable Unavailable Lino, A Syl STOCK ORDER LISTER Unavailable Unavailable Lino, A Syl STOCK ORDER LISTER Unavailable Unavailable Lino, A Syl STOCK ORDER LISTER Unavailable Unavailable Lino, A Syl STOCK ORDER LISTER Unavailable Unavailable Lino, A Syl STOCK ORDER LISTER Unavailable Unavailable PierreLeslyt Unavailable Re-disclosure Warning The records that you are about to access may contain information from federally-assisted alcohol or drug abuse programs. If such information is present, then the following federally mandated warning applies: This information has been disclosed to you from records protected by federal confidentiality rules (42 CFR part 2). The federal rules prohibit you from making any further disclosure of this information unless further disclosure is expressly permitted by the written consent of the person to whom it pertains or as otherwise permitted by 42 CFR part 2. A general authorization for the release of medical or other information is NOT sufficient for this purpose. The Federal rules restrict any use of the information to criminally investigate or prosecute any alcohol or drug abuse patient.The records that you are about to access may contain highly sensitive health information, the redisclosure of which is protected by Article 27-F of the [facility] Public Health law. If you continue you may have access to information: Regarding HIV / AIDS; Provided by facilities licensed or operated by the [facility] Office of Mental Health; or Provided by the [facility] Office for People With Developmental Disabilities. If such information is present, then the following [facility] mandated warning applies: This information has been disclosed to you from confidential records which are protected by state law. State law prohibits you from making any further disclosure of this information without the specific written consent of the person to whom it pertains, or as otherwise permitted by law. Any unauthorized further disclosure in violation of state law may result in a fine or correction sentence or both. A general authorization for the release of medical or other information is NOT sufficient authorization for further disc losure. Allergies and Adverse Reactions Type Description Substance Reaction Status Data Source(s ) Allergy to substance Allergy to substance Allergy to substance [facility]NI[facility] ([facility]) Family History Family Member Name Family Member Gender Family Member Status Date o f Status Description Data Source(s) Unknown Unknown Problem [facility]ENT ([facility]) Unknown Unknown Problem [facility] Unknown Male Problem MEDENT ([facility]) Encounters Encounter Providers Location Date Indications Data Source(s ) Williams Rojas MD: [address] [place] [id number], Ph. Attender: Williams Rojas MD [facility] Medical 03/11/2020 12:00:00 AM EST ANNIKA ([facility]) Outpatient Attender: DIPTI GARCIA NP [facility] 03/10/2020 11:30:00 AM EST - 03/10/2020 11:30:00 AM EST [facility] ([facility]) Attender: DIPTI GARCIA NP 03/10/2020 12:00:00 AM EST [facility] ([facility]) Outpatient Attender: Milagros Sosa Prim jg 12/04/2019 05:20:00 PM EDT MEDENT ([facility]) Outpatient Attender: NIKI PRINCE FP 11/26/2019 12:59:00 P M EDT [facility] Outpatient Attender: JESSICA Sosa Prim jg 11/11/2019 10:15:00 AM EDT MEDENT ([facility]) Outpatient Attender: Syl PRINCE FP 10/28/2019 09:3 9:01 AM EDT [facility] Outpatient Attender: Syl PRINCE FP 10/27/2019 12:1 1:02 AM EDT [facility] Outpatient Attender: Syl MEDINA 10/01/2019 09:4 0:01 AM EDT [facility] Outpatient Attender: NIKI MEDINA 09/30/2019 04:33:00 P M EDT [facility] Outpatient Attender: Syl PRINCE FP 08/22/2019 10:2 9:01 AM EDT [facility] Outpatient Attender: Syl MEDINA 08/22/2019 10:0 8:01 AM EDT [facility] Outpatient Attender: Kelly Kumar MD 08/07/2019 12:00:00 A M [facility] Outpatient Attender: DIPTI GARCIA NP [facility] Gigi андрей 07/30/2019 03:00:00 AM EDT - 07/30/2019 03:00:00 AM EDT [facility] ([facility]) Attender: DIPTI GARCIA NP 07/30/2019 12:00:00 AM EDT [facility] ([facility]) Outpatient Attender: NIKI PRINCE FP 07/29/2019 02:45:00 P M EDT [facility] Outpatient Attender: Sylra Lino PRINCE 07/28/2019 06:2 0:01 PM EDT [facility] Outpatient Attender: NIKI PRINCE 07/24/2019 07:48:00 A M EDT [facility] Outpatient Attender: NIKI Lino NIKI 07/15/2019 01:34:01 P M EDT [facility] Outpatient Attender: JESSICA gregorio 07/15/2019 12:30:00 PM EDT MEDENT ([facility]) Outpatient Attender: TYSON SPICER MD 07/04/2019 02:37:03 P M EDT [facility] Outpatient Attender: TSYON SPICER MD 07/04/2019 02:30:10 P M EDT [facility] Outpatient Attender: TYSON SPICER MD 07/04/2019 02:30:08 P M EDT [facility] Outpatient Attender: TYSON SPICER MD 07/04/2019 01:58:00 P M EDT [facility] [id number]"Psychotherapy Attender: Jolene Pierre [facility] 06/20/2019 11:00:00 AM EDT - 06/20/2019 11:00:00 AM EDT [facility] ([facility]) Attender: Jolene Pierre 06/20/2019 12:00:00 AM EDT [facility] ([facility]) Outpatient Attender: DIPTI GARCIA NP [facility] 05/28/2019 04:30:00 AM EDT - 05/28/2019 04:30:00 AM EDT [facility] ([facility]) Attender: DIPTI GARCIA NP 05/28/2019 12:00:00 AM EDT [facility] ([facility]) Outpatient Attender: DIPTI GARCIA NP [facility] 05/22/2019 04:00:00 AM EDT - 05/22/2019 04:00:00 AM EDT [facility] ([facility]) Attender: DIPTI GARCIA NP 05/22/2019 12:00:00 AM EDT [facility] ([facility]) Outpatient Attender: TYSON MEDINA 05/09/2019 11:53:03 A M [facility] Outpatient Attender: TYSON SPICER MD 05/09/2019 11:53:01 A M [facility] Outpatient Attender: TYSON MEDINA 05/08/2019 11:22:47 A M [facility] Outpatient Attender: Francheska Mast 05/06/2019 12:00:00 AM [facility] Outpatient Attender: TYSON SPICER MD FP 05/01/2019 04:07:01 P [facility] Outpatient Attender: TYSON SPICER MD 04/29/2019 09:12:01 A [facility] Outpatient Attender: TYSON SPICER MD 04/29/2019 08:18:00 A [facility] Brief Individual Psychotherapy - 30 min Attender: Jennifer Perales [facility] 04/14/2019 10:00:00 AM EST - 04/14/2019 10:00:00 AM EST [facility]) Attender: Jennifer Mendez 04/14/2019 12:00:00 AM EST [facility] ([facility]) Outpatient Attender: TYSON SPICER MD 04/11/2019 12:50:01 P [facility] Outpatient Attender: TYSON SPICER MD 04/11/2019 11:13:00 A [facility] Outpatient Attender: TYSON SPICER MD 04/11/2019 09:17:34 A [facility] Outpatient Attender: TYSON SPICER MD 04/09/2019 01:51:00 P [facility] Outpatient Attender: TYSON SPICER MD FP 04/09/2019 01:48:01 P [facility] Outpatient Attender: SHARON Hong/Josef/Adalberto/ Schuyler 04/08/2019 07:45:00 AM EST [facility] ([facility]) Outpatient Attender: TYSON SPICER MD FP 04/04/2019 11:29:01 A [facility] Outpatient Attender: TYSON SPICER MD FP 03/31/2019 04:25:00 P [facility] Outpatient Attender: SHARON Hong/Josef/Adalberto/ Reinfeliberto 03/25/2019 12:30:00 PM EST [facility] ([facility]) Outpatient Attender: TYSON SPICER MD FP 03/25/2019 12:28:01 P [facility] Outpatient Attender: TYSON SPICER MD FP 03/24/2019 10:03:02 A [facility] Outpatient Attender: TYSON SPICER MD FP 03/19/2019 01:20:01 P [facility] Outpatient Attender: SHARON Medina/Adalberto/ Reinfeliberto 03/13/2019 01:45:00 PM EST [facility] ([facility]) Outpatient Attender: TYSON SPICER MD FP 03/11/2019 03:38:01 P [facility] Outpatient Attender: TYSON SPICER MD FP 03/11/2019 12:07:03 P [facility] Outpatient Attender: TYSON SPICER MD FP 03/10/2019 10:57:01 P [facility] Outpatient Attender: TYSON SPICER MD FP 03/10/2019 01:57:03 P [facility] Outpatient Attender: TYSON SPICER MD FP 03/07/2019 11:00:01 A [facility] Outpatient Attender: TYSON SPICER MD FP 03/06/2019 04:27:59 P [facility] Outpatient Attender: TYSON SPICER MD FP 03/05/2019 03:25:00 P [facility] Outpatient Attender: TYSON SPICER MD FP 03/05/2019 12:03:00 P [facility] Outpatient Attender: TYSON SPICER MD FP 03/05/2019 10:09:00 A [facility] Outpatient Attender: TYSON SPICER MD FP 03/04/2019 03:14:00 P [facility] Outpatient Attender: TYSON SPICER MD FP 03/04/2019 03:13:01 P [facility] Outpatient Attender: TYSON SPICER MD 03/04/2019 03:12:00 P [facility] Outpatient Attender: TYSON SPICER MD 03/04/2019 03:07:01 P [facility] Outpatient Attender: TYSON SPICER MD 03/04/2019 02:04:02 P [facility] Outpatient Attender: TYSON SPICER MD 03/04/2019 11:22:01 A [facility] Outpatient Attender: TYSON SPICER MD 03/04/2019 10:04:00 A [facility] Outpatient Attender: TYSON SPICER MD 03/03/2019 04:33:00 P [facility] Outpatient Attender: TYSON SPICER MD 02/28/2019 12:34:01 P [facility] Outpatient Attender: TYSON SPICER MD 02/24/2019 09:01:04 P [facility] Outpatient Attender: ELSA Lamb 02/20/2019 04:30:00 PM EST [facility] ([facility]) Outpatient Attender: DIPTI GARCIA NP [facility] 02/20/2019 11:00:00 AM EST - 02/20/2019 11:00:00 AM EST [facility] ([facility]) Attender: DIPTI GARCIA NP 02/20/2019 12:00:00 AM EST [facility] ([facility]) Outpatient Attender: Dariana fragoso 02/13/2019 12:00:00 PM EST [facility] ([facility]) Outpatient Attender: TYSON SPICER MD 02/10/2019 06:54:01 P [facility] Outpatient Attender: TYSON SPICER MD 02/10/2019 06:50:03 P [facility] Outpatient Attender: TYSON SPICER MD 02/07/2019 09:00:01 A [facility] Outpatient Attender: TYSON SPICER MD 02/06/2019 09:07:01 A [facility] Outpatient Attender: TYSON SPICER MD 02/05/2019 03:49:00 P [facility] Outpatient Attender: TYSON SPICER MD 02/05/2019 03:48:00 P [facility] Outpatient Attender: TYSON SPICER MD 02/04/2019 04:46:01 P [facility] Outpatient Attender: Francheska Mast 01/30/2019 12:00:00 AM [facility] Functional Status Medications Medication Brand Name Start Date Product Form Dose Route Admi nistrative Instructions Pharmacy Instructions Status Indications Reaction Description Data Source(s) 150 mcg 03/26/2020 12:00:00 AM EST tablet 30 TAKE ONE TABLET BY MOUTH EVERY DAY TAKE ONE TABLET BY MOUTH EVERY DAY SOLD: 03/26/2020 [facility] BLOOD SUGAR DIAGNOSTIC 03/20/2020 12:00:00 AM EST strip 150 TEST FOUR TIMES A DAY TEST FOUR TIMES A DAY SOLD: 03/21/2020 [facility] 125 mcg 03/20/2020 12:00:00 AM EST tablet 30 TAKE ONE TABLET BY MOUTH EVERY MORNING BEFORE BREAKFAST TAKE ONE TABLET BY MOUTH EVERY MORNING B EFORE BREAKFAST SOLD: 03/21/2020 [facility] 31 gauge x 3/16" 03/03/2020 12:00:00 AM EST needle 100 DIRECTED BEFORE MEALS AND AT BEDTIME DIRECTED BEFORE MEALS AND AT BEDTIME SOLD: 03/03/2020 [facility] 875-125 mg 03/02/2020 12:00:00 AM EST tablet 10 TAKE ONE TABLET BY MOUTH TWICE A DAY TAKE ONE TABLET BY MOUTH TWICE A DAY SOLD: 03/03/2020 [facility] 1 billion cell- 250 mg 03/02/2020 12:00:00 AM EST tablet 15 TAKE 1 TABLET BY MOUTH WITH MEALS TAKE 1 TABLET BY MOUTH WITH MEALS SOLD: 03/03/2020 [facility] 100 unit/mL (3 mL) 03/02/2020 12:00:00 AM EST insulin pen 15 INJECT 25 UNITS UNDER THE SKIN EVERY DAY AT BEDTIME INJECT 25 UNITS UNDER THE SKIN EVERY DAY AT BEDTIME SOLD: 03/03/2020 [facility] 10 mg 03/02/2020 12:00:00 AM EST tablet 30 TAKE 1 TABLET [10MG] BY MOUTH DAILY TAKE 1 TABLET [10MG] BY MOUTH DAILY SOLD: 03/03/2020 [facility] Cyclobenzaprine hydrochloride 10 MG Oral Tablet CYCLOBENZAPR INE HCL 02/06/2020 12:00:00 AM EST tablet 21 TAKE ONE TABLET BY MOUTH THREE TIMES A DAY FOR 7 DAYS TAKE ONE TABLET BY MOUTH THREE TIMES A DAY FOR 7 DAYS SOLD: 020 [facility] 10 mg 02/06/2020 12:00:00 AM EST tablet 20 TAKE ONE TABLET BY MOUTH EVERY 6 HOURS FOR 5 DAYS TAKE ONE TABLET BY MOUTH EVERY 6 HOURS FOR 5 DAYS SOLD : 02/06/2020 [facility] Paroxetine Hydrochloride 40 MG Oral Tablet PAROXETINE HCL 01/14/2020 12:00:00 AM EST tablet 30 TAKE 1 TABLET BY MOUTH ONCE A DAY TAKE 1 TABLET BY MOUTH ONCE A DAY SOLD: 02/16/2020 [facility] 30 mg 01/14/2020 12:00:00 AM EST tablet 60 TAKE ONE TABLET BY MOUTH TWICE A DAY TAKE ONE TABLET BY MOUTH TWICE A DAY SOLD: 01/14/2020 [facility] Lurasidone Hydrochloride 20 MG Oral Tablet [Latuda] Latuda 01/14/2020 12:00:00 AM EST 20 mg by mouth completed [id number] Latuda by mouth [id number] 01/14/2020 04/13/2020 twice a day 30 20 mg tablet [id number] Dipti Garcia [id number] [facility] ([facility]) Paroxetine Hydrochloride 40 MG Oral Tablet PAROXETINE HCL 01/14/2020 12:00:00 AM EST tablet 30 TAKE 1 TABLET BY MOUTH ONCE A DAY TAKE 1 TABLET BY MOUTH ONCE A DAY SOLD: 01/14/2020 [facility] Amoxicillin 875 MG Oral Tablet Amoxicillin 11/11/2019 12:00:00 AM EDT completed [facility] ([facility]) 875 mg 11/11/2019 12:00:00 AM EDT tablet 20 TAKE ONE TABLET BY MOUTH EVERY 12 HOURS FOR 10 DAYS TAKE ONE TABLET BY MOUTH EVERY 12 HOURS FOR 10 DAYS SO LD: 11/11/2019 [facility] 30 mg 11/03/2019 12:00:00 AM EDT tablet 60 TAKE ONE TABLET BY MOUTH TWICE A DAY TAKE ONE TABLET BY MOUTH TWICE A DAY SOLD: 11/03/2019 [facility] 30 mg 11/03/2019 12:00:00 AM EDT tablet 60 TAKE ONE TABLET BY MOUTH TWICE A DAY TAKE ONE TABLET BY MOUTH TWICE A DAY SOLD: 12/16/2019 [facility] 30 mg 11/03/2019 12:00:00 AM EDT tablet 60 TAKE ONE TABLET BY MOUTH TWICE A DAY TAKE ONE TABLET BY MOUTH TWICE A DAY SOLD: 02/09/2020 [facility] Paroxetine Hydrochloride 40 MG Oral Tablet PAROXETINE HCL 11/01/2019 12:00:00 AM EDT tablet 30 TAKE ONE TABLET BY MOUTH NENA DAY TAKE ONE TABLET BY MOUTH EVERY DAY SOLD: 11/02/2019 [facility] Paroxetine Hydrochloride 40 MG Oral Tablet PAROXETINE HCL 11/01/2019 12:00:00 AM EDT tablet 30 TAKE ONE TABLET BY MOUTH NENA TAKE ONE TABLET BY MOUTH EVERY DAY SOLD: 12/16/2019 [facility] 20 mg 10/27/2019 12:00:00 AM EDT tablet 30 TAKE ONE TABLET BY MOUTH DAILY TAKE ONE TABLET BY MOUTH DAILY SOLD: 10/27/2019 [facility] 20 mg 10/27/2019 12:00:00 AM EDT tablet 30 TAKE ONE TABLET BY MOUTH DAILY TAKE ONE TABLET BY MOUTH DAILY SOLD: 02/16/2020 [facility] 50 mg 10/22/2019 12:00:00 AM EDT tablet 60 TAKE 1 TABLET BY MOUTH EVERY NIGHT MAY TAKE 2 TABLETS NEEDED TAKE 1 TABLET BY MOUTH EVERY NIGHT MAY T ADONAY 2 TABLETS NEEDED SOLD: 01/12/2020 [facility] 10 mg 10/22/2019 12:00:00 AM EDT tablet 30 TAKE ONE TABLET BY MOUTH EVERY DAY TAKE ONE TABLET BY MOUTH EVERY DAY SOLD: 12/04/2019 [facility] 10 mg 10/22/2019 12:00:00 AM EDT tablet 30 TAKE ONE TABLET BY MOUTH EVERY DAY TAKE ONE TABLET BY MOUTH EVERY DAY SOLD: 10/22/2019 [facility] 50 mg 10/22/2019 12:00:00 AM EDT tablet 60 TAKE 1 TABLET BY MOUTH EVERY NIGHT MAY TAKE 2 TABLETS NEEDED TAKE 1 TABLET BY MOUTH EVERY NIGHT MAY T ADONAY 2 TABLETS NEEDED SOLD: 02/16/2020 [facility] 50 mg 10/22/2019 12:00:00 AM EDT tablet 60 TAKE 1 TABLET BY MOUTH EVERY NIGHT MAY TAKE 2 TABLETS NEEDED TAKE 1 TABLET BY MOUTH EVERY NIGHT MAY T ADONAY 2 TABLETS NEEDED SOLD: 10/22/2019 [facility] 10 mg 10/22/2019 12:00:00 AM EDT tablet 30 TAKE ONE TABLET BY MOUTH EVERY DAY TAKE ONE TABLET BY MOUTH EVERY DAY SOLD: 01/12/2020 [facility] 0.5 % 08/04/2019 12:00:00 AM EDT drops 10 INSTILL 1 DROP INTO LEFT EYE TWICE A DAY INSTILL 1 DROP INTO LEFT EYE TWICE A DAY SOLD: 08/05/2019 [facility] 10 mg 08/01/2019 12:00:00 AM EDT tablet 60 TAKE 2 TABLETS BY MOUTH ONCE A DAY TAKE 2 TABLETS BY MOUTH ONCE A DAY SOLD: 08/01/2019 [facility] 50 mg 07/31/2019 12:00:00 AM EDT tablet 60 TAKE 1 TABLET BY MOUTH EVERY NIGHT MAY TAKE 2 TABLETS IF NEEDED TAKE 1 TABLET BY MOUTH EVERY NIGHT MAY T ADONAY 2 TABLETS IF NEEDED SOLD: 07/31/2019 [facility] 10 mg 07/31/2019 12:00:00 AM EDT tablet 30 TAKE ONE TABLET BY MOUTH EVERY DAY TAKE ONE TABLET BY MOUTH EVERY DAY SOLD: 08/31/2019 [facility] buspirone hydrochloride 30 MG Oral Tablet BUSPIRONE HCL 07/31/2019 12:00:00 AM EDT tablet 60 TAKE ONE TABLET BY MOUTH TWI CE A DAY TAKE ONE TABLET BY MOUTH TWICE A DAY SOLD: 09/03/2019 [facility] buspirone hydrochloride 30 MG Oral Tablet BUSPIRONE HCL 07/31/2019 12:00:00 AM EDT tablet 60 TAKE ONE TABLET BY MOUTH TWI CE A DAY TAKE ONE TABLET BY MOUTH TWICE A DAY SOLD: 07/31/2019 [facility] 40 mg 07/31/2019 12:00:00 AM EDT tablet 30 TAKE ONE TABLET BY MOUTH EVERY DAY TAKE ONE TABLET BY MOUTH EVERY DAY SOLD: 09/03/2019 [facility] 40 mg 07/31/2019 12:00:00 AM EDT tablet 30 TAKE ONE TABLET BY MOUTH EVERY DAY TAKE ONE TABLET BY MOUTH EVERY DAY SOLD: 07/31/2019 [facility] 40 mg 07/31/2019 12:00:00 AM EDT tablet 30 TAKE ONE TABLET BY MOUTH EVERY DAY TAKE ONE TABLET BY MOUTH EVERY DAY SOLD: 10/06/2019 [facility] 10 mg 07/31/2019 12:00:00 AM EDT tablet 30 TAKE ONE TABLET BY MOUTH EVERY DAY TAKE ONE TABLET BY MOUTH EVERY DAY SOLD: 07/31/2019 [facility] 30 mg 07/31/2019 12:00:00 AM EDT tablet 60 TAKE ONE TABLET BY MOUTH TWICE A DAY TAKE ONE TABLET BY MOUTH TWICE A DAY SOLD: 10/06/2019 [facility] 1 % 07/29/2019 12:00:00 AM EDT drops,suspension 5 INSTILL 1 DROP INTO THE LEFT EYE DIRECTED EVERY HOUR INSTILL 1 DROP INTO THE LEFT EYE DIRE CTED EVERY HOUR SOLD: 07/29/2019 [facility] 1 % 07/29/2019 12:00:00 AM EDT drops 2 INSTILL 1 DROP INTO LEFT EYE TWO TIMES A DAY DIRECTED INSTILL 1 DROP INTO LEFT EYE TWO TIMES A DAY DIRECTED SOLD: 07/29/2019 [facility] 500 mg 07/22/2019 12:00:00 AM EDT capsule 21 TAKE ONE CAPSULE BY MOUTH THREE TIMES A DAY FOR 7 DAYS TAKE ONE CAPSULE BY MOUTH THREE TIMES A DAY FOR 7 DAYS SOLD: 07/22/2019 [facility] valacyclovir 1000 MG Oral Tablet [Valtrex] Valtrex 07/15/2019 12:00:00 AM EDT ORAL active [facility] ([facility]) Triamcinolone Acetonide 1 MG/ML Topical Cream Triamcinolone Acetonide 07/15/2019 12:00:00 AM EDT active [facility] ([facility]) Acyclovir 0.05 MG/MG Topical Ointment Acyclovir 07/15/2019 12:00:00 AM EDT completed [facility] ([facility]) 1 gram 07/15/2019 12:00:00 AM EDT tablet 6 TAKE ONE TABLET BY MOUTH TWO TIMES A DAY FOR 3 DAYS TAKE ONE TABLET BY MOUTH TWO TIMES A DAY FOR 3 DAYS SO LD: 07/15/2019 [facility] 0.1 % 07/15/2019 12:00:00 AM EDT cream 15 APPLY TO HANDS TWO TIMES A DAY FOR 14 DAYS (AVOID CREAM TO FACE) APPLY TO HANDS TWO TIMES A DAY FOR 14 DA YS (AVOID CREAM TO FACE) SOLD: 07/15/2019 [facility] Fluconazole 100 MG Oral Tablet [Diflucan] Diflucan 07/08/2019 1 2:00:00 AM EDT active [facility] ([facility], ) 100 mg 07/08/2019 12:00:00 AM EDT tablet 8 TAKE 2 TABLETS BY MOUTH ON FIRST DAY AND THEN 1 TABLET FOR THE NEXT 6 DAYS TAKE 2 TABLETS BY MOUTH ON FIRST DAY AND THEN 1 TABLET FOR THE NEXT 6 DAYS SOLD: 07/08/2019 [facility] 500 mg 07/04/2019 12:00:00 AM EDT tablet 30 TAKE 1 TABLET BY MOUTH TWO TIMES A DAY TAKE 1 TABLET BY MOUTH TWO TIMES A DAY SOLD: 07/04/2019 [facility] 0.4 % 07/02/2019 12:00:00 AM EDT cream 45 INSERT ONE APPLICATORFUL VAGINALLY AT BEDTIME FOR 7 NIGHTS INSERT ONE APPLICATORFUL VAGINALLY AT BE DTIME FOR 7 NIGHTS SOLD: 07/02/2019 [facility] 100 mg 06/30/2019 12:00:00 AM EDT tablet 30 TAKE ONE TABLET BY MOUTH DAILY TAKE ONE TABLET BY MOUTH DAILY SOLD: 06/30/2019 [facility] 150 mg 06/10/2019 12:00:00 AM EDT tablet 2 TAKE 1 TABLET BY MOUTH FOR 1 DOSE THEN 1 TABLET IN 3 DAYS TAKE 1 TABLET BY MOUTH FOR 1 DOSE THEN 1 TABLET IN 3 DAYS SOLD: 06/10/2019 [facility] 10 mg 06/02/2019 12:00:00 AM EDT tablet 30 TAKE ONE TABLET BY MOUTH EVERY DAY TAKE ONE TABLET BY MOUTH EVERY DAY SOLD: 07/04/2019 [facility] 10 mg 06/02/2019 12:00:00 AM EDT tablet 30 TAKE ONE TABLET BY MOUTH EVERY DAY TAKE ONE TABLET BY MOUTH EVERY DAY SOLD: 06/02/2019 [facility] buspirone hydrochloride 30 MG Oral Tablet BUSPIRONE HCL 05/29/2019 12:00:00 AM EDT tablet 60 TAKE ONE TABLET BY MOUTH TWI CE A DAY TAKE ONE TABLET BY MOUTH TWICE A DAY SOLD: 05/29/2019 [facility] 40 mg 05/29/2019 12:00:00 AM EDT tablet 30 TAKE ONE TABLET BY MOUTH EVERY DAY TAKE ONE TABLET BY MOUTH EVERY DAY SOLD: 05/29/2019 [facility] buspirone hydrochloride 30 MG Oral Tablet BUSPIRONE HCL 05/29/2019 12:00:00 AM EDT tablet 60 TAKE ONE TABLET BY MOUTH TWI CE A DAY TAKE ONE TABLET BY MOUTH TWICE A DAY SOLD: 07/07/2019 [facility] 50 mg 05/29/2019 12:00:00 AM EDT tablet 60 TAKE 1 TABLET BY MOUTH EVERY NIGHT( MAY TAKE 2 TABLETS IF NEEDED) TAKE 1 TABLET BY MOUTH EVERY NIGHT( MAY TAKE 2 TABLETS IF NEEDED) SOLD: 05/29/2019 [facility] 40 mg 05/29/2019 12:00:00 AM EDT tablet 30 TAKE ONE TABLET BY MOUTH EVERY DAY TAKE ONE TABLET BY MOUTH EVERY DAY SOLD: 06/26/2019 [facility] buspirone hydrochloride 30 MG Oral Tablet buspirone 2019 12:00:00 AM EDT 30 mg completed [id number] buspirone 05/28/2019 twice a day 30 mg tablet [id number] Dipti Garcia [id number] Psych[facility] paroxetine HCl paroxetine HCl 05/28/2019 12:00:00 AM EDT 40 mg by mouth completed [id number] paroxetine HCl by mouth [id number] 05/28/2019 once a day 30 40 mg tablet [id number] Dipti Garcia [id number] Psych[facility] ([facility]) Trazodone Hydrochloride 50 MG Oral Tablet trazodone 2019 12:00:00 AM EDT 50 mg by mouth completed [id number] trazodone by mouth [id number] 05/28/2019 08/26/2019 every night 30 50 mg tablet 49061 [id number] Maria A Garcia [id number] Psych[facility]) aripiprazole 10 MG Oral Tablet [Abilify] Abilify 05/28/2019 12 :00:00 AM EDT 10 mg by mouth completed [id number] Abilify by mouth [id number] 05/28/2019 08/26/2019 once a day 30 10 mg tablet 82196 [id number] Jose Rafael Ng [id number] [facility]) buspirone hydrochloride 15 MG Oral Tablet BUSPIRONE HCL 05/16/2019 12:00:00 AM EDT tablet 60 TAKE 1 TABLET BY MOUTH TWICE A DAY TAKE 1 TABLET BY MOUTH TWICE A DAY SOLD: 05/16/2019 [facility] 40 mg 05/08/2019 12:00:00 AM EDT tablet 15 TAKE 1 TABLET BY MOUTH ONCE A DAY DIRECTED TAKE 1 TABLET BY MOUTH ONCE A DAY DIRECTED SOLD: 05/08/2019 [facility] 10 mg 05/08/2019 12:00:00 AM EDT tablet 15 TAKE 1 TABLET BY MOUTH ONCE A DAY TAKE 1 TABLET BY MOUTH ONCE A DAY SOLD: 05/08/2019 [facility] 50 mg 05/08/2019 12:00:00 AM EDT tablet 15 TAKE 1 TABLET BY MOUTH AT BEDTIME TAKE 1 TABLET BY MOUTH AT BEDTIME SOLD: 05/08/2019 [facility] 10 mg 04/11/2019 12:00:00 AM EST tablet 30 TAKE 1 TABLET BY MOUTH ONCE DAILY TAKE 1 TABLET BY MOUTH ONCE DAILY SOLD: 04/11/2019 [facility] buspirone hydrochloride 15 MG Oral Tablet BUSPIRONE HCL 04/11/2019 12:00:00 AM EST tablet 60 TAKE 1 TABLET BY MOUTH TWICE DAILY TAKE 1 TABLET BY MOUTH TWICE DAILY SOLD: 04/11/2019 [facility] 50 mg 04/11/2019 12:00:00 AM EST tablet 30 TAKE 1 TABLET BY MOUTH ONCE DAILY AT BEDTIME TAKE 1 TABLET BY MOUTH ONCE DAILY AT BEDTIME SOLD: 04/11/2019 [facility] 40 mg 04/11/2019 12:00:00 AM EST tablet 30 TAKE 1 TABLET BY MOUTH ONCE DAILY DIRECTED TAKE 1 TABLET BY MOUTH ONCE DAILY DIRECTED SOLD: 04/11/2019 [facility] 5-325 mg 02/27/2019 12:00:00 AM EST tablet 10 TAKE ONE TABLET BY MOUTH TWICE A DAY NEEDED FOR PAIN MAXIMUM DAILY DOSE = 2 TABLETS TAKE ONE TABLET BY MOUTH TWICE A DAY NEEDED FOR PAIN MAXIMUM DAILY DOSE = 2 TABLETS SOLD: 02/27/2019 [facility] 875-125 mg 02/26/2019 12:00:00 AM EST tablet 6 TAKE ONE TABLET BY MOUTH TWICE A DAY FOR 3 DAYS TAKE ONE TABLET BY MOUTH TWICE A DAY FOR 3 DAYS SOLD: 02/26/2019 [facility] 500 mg 02/13/2019 12:00:00 AM EST capsule 20 TAKE ONE CAPSULE BY MOUTH TWICE A DAY DIRECTED FOR 10 DAYS TAKE ONE CAPSULE BY MOUTH TWICE A DAY DIRECTED FOR 10 DAYS SOLD: 02/13/2019 [facility] Cephalexin 500 MG Oral Tablet Cephalexin 02/13/2019 12:00:00 AM EST ORAL completed [facility] ([facility]) 150 mg 02/08/2019 12:00:00 AM EST tablet 1 TAKE 1 TABLET BY MOUTH DIRECTED IN 7 TO 10 DAYS NEEDED FOR YEAST VAGTINITIS FROM ANTIBIOTICS TAKE 1 TABLET BY MOUTH DIRECTED IN 7 TO 10 DAYS NEEDED FOR YEAST VAGTINITIS FROM ANTIBIOTICS SOLD: 02/08/2019 [facility] Oxybutynin chloride 5 MG Oral Tablet OXYBUTYNIN CHLORIDE 12:00:00 AM EST tablet 60 TAKE ONE TABLET BY MOUTH TWI CE A DAY TAKE ONE TABLET BY MOUTH TWICE A DAY SOLD: 03/25/2019 [facility] 1.5 mg/0.5 mL 02/08/2019 12:00:00 AM EST pen injector 2 INJECT 1.5MG UNDER THE SKIN WEEKLY INJECT 1.5MG UNDER THE SKIN WEEKLY SOLD: 03/25/2019 [facility] 40 mg 02/08/2019 12:00:00 AM EST tablet 30 TAKE 1 TABLET BY MOUTH DAILY TAKE 1 TABLET BY MOUTH DAILY SOLD: 06/26/2019 [facility] 40 mg 02/08/2019 12:00:00 AM EST tablet 30 TAKE 1 TABLET BY MOUTH DAILY TAKE 1 TABLET BY MOUTH DAILY SOLD: 04/22/2019 [facility] 1.5 mg/0.5 mL 02/08/2019 12:00:00 AM EST pen injector 2 INJECT 1.5MG UNDER THE SKIN WEEKLY INJECT 1.5MG UNDER THE SKIN WEEKLY SOLD: 02/08/2019 [facility] Oxybutynin chloride 5 MG Oral Tablet OXYBUTYNIN CHLORIDE 12:00:00 AM EST tablet 60 TAKE ONE TABLET BY MOUTH TWI CE A DAY TAKE ONE TABLET BY MOUTH TWICE A DAY SOLD: 02/08/2019 [facility] Famotidine 40 MG Oral Tablet FAMOTIDINE 02/08/2019 12:00:00 AM EST tab let 30 TAKE 1 TABLET BY MOUTH DAILY TAKE 1 TABLET BY MOUTH DAILY SOLD: 02/08/2019 [facility] Oxybutynin chloride 5 MG Oral Tablet OXYBUTYNIN CHLORIDE 12:00:00 AM EST tablet 60 TAKE ONE TABLET BY MOUTH TWI CE A DAY TAKE ONE TABLET BY MOUTH TWICE A DAY SOLD: 06/05/2019 [facility] BLOOD SUGAR DIAGNOSTIC 02/08/2019 12:00:00 AM EST strip 100 TEST FOUR TIMES A DAY TEST FOUR TIMES A DAY SOLD: 02/08/2019 [facility] 33 gauge 02/08/2019 12:00:00 AM EST misc 100 TEST FOUR TIMES A DAY TEST FOUR TIMES A DAY SOLD: 02/08/2019 [facility] BLOOD-GLUCOSE METER 02/08/2019 12:00:00 AM EST misc 1 USE DIRECTED USE DIRECTED SOLD: 02/08/2019 [facility] 1.5 mg/0.5 mL 02/08/2019 12:00:00 AM EST pen injector 2 INJECT 1.5MG UNDER THE SKIN WEEKLY INJECT 1.5MG UNDER THE SKIN WEEKLY SOLD: 06/05/2019 [facility] 40 mg 02/08/2019 12:00:00 AM EST tablet 30 TAKE 1 TABLET BY MOUTH DAILY TAKE 1 TABLET BY MOUTH DAILY SOLD: 05/24/2019 [facility] 1,000 mg 02/08/2019 12:00:00 AM EST tablet 60 TAKE ONE TABLET BY MOUTH TWICE A DAY TAKE ONE TABLET BY MOUTH TWICE A DAY SOLD: 02/08/2019 [facility] 0.35 mg 12/27/2018 12:00:00 AM EDT tablet 84 TAKE ONE TABLET BY MOUTH EVERY DAY TAKE ONE TABLET BY MOUTH EVERY DAY SOLD: 06/26/2019 [facility] 0.35 mg 12/27/2018 12:00:00 AM EDT tablet 84 TAKE ONE TABLET BY MOUTH EVERY DAY TAKE ONE TABLET BY MOUTH EVERY DAY SOLD: 03/28/2019 [facility] 0.35 mg 12/27/2018 12:00:00 AM EDT tablet 84 TAKE ONE TABLET BY MOUTH EVERY DAY TAKE ONE TABLET BY MOUTH EVERY DAY SOLD: 09/03/2019 [facility] 0.35 mg 12/27/2018 12:00:00 AM EDT tablet 84 TAKE ONE TABLET BY MOUTH EVERY DAY TAKE ONE TABLET BY MOUTH EVERY DAY SOLD: 12/08/2019 [facility] buspirone hydrochloride 15 MG Oral Tablet BUSPIRONE HCL 11/30/2018 12:00:00 AM EDT tablet 60 TAKE ONE TABLET BY MOUTH TWI CE A DAY TAKE ONE TABLET BY MOUTH TWICE A DAY SOLD: 03/09/2019 [facility] 10 mg 11/30/2018 12:00:00 AM EDT tablet 30 TAKE ONE TABLET BY MOUTH EVERY DAY TAKE ONE TABLET BY MOUTH EVERY DAY SOLD: 01/29/2019 [facility] 10 mg 11/30/2018 12:00:00 AM EDT tablet 30 TAKE ONE TABLET BY MOUTH EVERY DAY TAKE ONE TABLET BY MOUTH EVERY DAY SOLD: 03/09/2019 [facility] 40 mg 11/30/2018 12:00:00 AM EDT tablet 30 TAKE ONE TABLET BY MOUTH EVERY DAY DIRECTED TAKE ONE TABLET BY MOUTH EVERY DAY DIRECTED SOLD: 019 [facility] buspirone hydrochloride 15 MG Oral Tablet BUSPIRONE HCL 11/30/2018 12:00:00 AM EDT tablet 60 TAKE ONE TABLET BY MOUTH TWI CE A DAY TAKE ONE TABLET BY MOUTH TWICE A DAY SOLD: 01/29/2019 [facility] 40 mg 11/30/2018 12:00:00 AM EDT tablet 30 TAKE ONE TABLET BY MOUTH EVERY DAY DIRECTED TAKE ONE TABLET BY MOUTH EVERY DAY DIRECTED SOLD: 020 [facility] 100 unit/mL (3 mL) 10/22/2018 12:00:00 AM EDT insulin pen 6 80UNITS UNDER SKIN EVERY A.M. 50UNITS EVERY P.M.OR DIRECTED MAX 130 UNITS/DAY 80UNITS UNDER SKIN EVERY A.M. 50UNITS EVERY P.M.OR DIRECTED MAX 130 UNITS/DAY SOLD: 04/04/2019 [facility] 20 mg 09/26/2018 12:00:00 AM EDT tablet 30 TAKE ONE TABLET BY MOUTH DAILY TAKE ONE TABLET BY MOUTH DAILY SOLD: 02/13/2019 [facility] 125 mcg 09/26/2018 12:00:00 AM EDT tablet 30 TAKE ONE TABLET BY MOUTH EVERY MORNING BEFORE BREAKFAST TAKE ONE TABLET BY MOUTH EVERY MORNING B EFORE BREAKFAST SOLD: 05/24/2019 [facility] 20 mg 09/26/2018 12:00:00 AM EDT tablet 30 TAKE ONE TABLET BY MOUTH DAILY TAKE ONE TABLET BY MOUTH DAILY SOLD: 05/24/2019 [facility] 100 mg 09/20/2018 12:00:00 AM EDT tablet 30 TAKE ONE TABLET BY MOUTH DAILY TAKE ONE TABLET BY MOUTH DAILY SOLD: 04/22/2019 [facility] 100 mg 09/20/2018 12:00:00 AM EDT tablet 30 TAKE ONE TABLET BY MOUTH DAILY TAKE ONE TABLET BY MOUTH DAILY SOLD: 05/24/2019 [facility] 1,000 mg 09/20/2018 12:00:00 AM EDT tablet 60 TAKE ONE TABLET BY MOUTH TWICE A DAY TAKE ONE TABLET BY MOUTH TWICE A DAY SOLD: 03/18/2019 [facility] Fluconazole 100 MG Oral Tablet fluconazo le 100 mg tablet TAKE 2 TABLETS BY MOUTH ON FIRST DAY AND THEN 1 TABLET FOR THE NEXT 6 DAYS fluconazole 100 mg tablet TAKE 2 TABLETS BY MOUTH ON FIRST DAY AND THEN 1 TABLET FOR THE NEXT 6 DAYS completed fluconazole 100 MG Ora l Tablet ANNIKA ([facility]) aripiprazole 10 MG Oral Tablet aripipraz ole 10 mg tablet TAKE ONE TABLET BY MOUTH EVERY DAY aripiprazole 10 mg tablet TAKE ONE TABLET BY MOUTH EVERY DAY completed aripiprazole 1 0 MG Oral Tablet BUTLER ([facility]) chlorhexidine gluconate 40 MG/ML Medicat ed Liquid Soap [Hibiclens] Hibiclens 4 % topical liquid WASH INTO AFFECTED AREA TWO TIMES A DAY FOR 10 DAYS Hibiclens 4 % topical liquid WASH INTO AFFECTED AREA TWO TIMES A DAY FOR 10 DAYS completed chlorhexidine gl uconate 40 MG/ML Medicated Liquid Soap [Hibiclens] ANNIKA ([facility]) OneTouch Ultra Blue Test Strip TEST FOUR TIMES A DAY 130641 completed OneTouch Ultra Blue Test Strip A ALLYSSA ([facility]) Amoxicillin 875 MG / Clavulanate 125 MG Oral Tablet [Augmentin] Augmentin 875 mg-125 mg tablet Take 1 tablet every 12 hours by oral route. Augmentin 875 mg- 125 mg tablet Take 1 tablet every 12 hours by oral route. 1 completed amoxicillin 875 MG / clavulanate 125 MG Oral Tablet [Augmentin] ANNIKA ([facility]) atorvastatin 10 MG Oral Tablet atorvasta tin 10 mg tablet TAKE 1 TABLET BY MOUTH EVERY DAY AT BEDTIME atorvastatin 10 mg tablet TAKE 1 TABLET BY MOUTH EVERY DAY AT BEDTIME completed atorvastati n 10 MG Oral Tablet BUTLER ([facility]) Fenofibrate 160 MG Oral Tablet fenofibra te 160 mg tablet TAKE ONE TABLET BY MOUTH DAILY fenofibrate 160 mg tablet TAKE ONE TABLET BY MOUTH DAILY completed fenofibrate 160 MG Oral Tabl et ANNIKA ([facility]) tizanidine 4 MG Oral Tablet tizanidine 4 mg tablet TAKE ONE TABLET BY MOUTH EVERY 8 HOURS NEEDED tizanidine 4 mg tablet TAKE ONE TABLET B Y MOUTH EVERY 8 HOURS NEEDED completed tizani dine 4 MG Oral Tablet ANNIKA ([facility]) terconazole 4 MG/ML Vaginal Cream tercon azole 0.4 % vaginal cream INSERT ONE APPLICATORFUL VAGINALLY AT BEDTIME FOR 7 NIGHTS terconazole 0.4 % vaginal cream INSERT ONE APPLICATORFUL VAGINALLY AT BEDTIME FOR 7 NIGHTS completed terconazole 4 MG/ML Vaginal Crea m ANNIKA ([facility]) buspirone hydrochloride 15 MG Oral Table t buspirone 15 mg tablet TAKE 1 TABLET BY MOUTH TWICE A DAY buspirone 15 mg tablet TAKE 1 TABLET BY MOUTH TWICE A DAY completed buspirone hydr ochloride 15 MG Oral Tablet BUTLER ([facility]) OneTouch Delica Plus Lancet 33 gauge TEST FOUR TIMES A DAY [id number] completed OneTouch Delica Plus Lancet 33 g auge ANNIKA ([facility]) Cholecalciferol 2000 UNT Oral Tablet cho lecalciferol (vitamin D3) 50 mcg (2,000 unit) tablet TAKE ONE TABLET BY MOUTH DAILY WITH DINNER cholecalciferol (vitamin D3) 50 mcg (2,000 unit) tablet TAKE ONE TABLET BY MOUTH DAILY WITH DINNER completed cholecalciferol 0.05 M G Oral Tablet ANNIKA ([facility]) Hydrochlorothiazide 25 MG / Triamterene 37.5 MG Oral Capsule triamterene 37.5 mg-hydrochlorothiazide 25 mg capsule TAKE ONE CAPSULE BY MOUTH DAILY triamterene 37.5 mg-hydrochlorothiazide 25 mg capsule TAKE ONE CAPSULE BY MOUTH DAILY completed hydrochlor othiazide 25 MG / triamterene 37.5 MG Oral Capsule ANNIKA ([facility]) Amoxicillin 500 MG Oral Capsule amoxicil jose rafael 500 mg capsule TAKE ONE CAPSULE BY MOUTH THREE TIMES A DAY FOR 7 DAYS amoxicillin 500 mg capsule TAKE ONE CAPS ULE BY MOUTH THREE TIMES A DAY FOR 7 DAYS completed amoxicillin 500 MG Oral Capsule BUTLER ([facility]) Deblitane 0.35 mg tablet TAKE ONE TABLET BY MOUTH EVERY DAY [id number] completed Deblitane 0.35 mg tablet BUTLER ([facility]) Ketorolac Tromethamine 10 MG Oral Tablet ketorolac 10 mg tablet TAKE ONE TABLET BY MOUTH EVERY 6 HOURS FOR 5 DAYS ketorolac 10 mg tablet TAKE ONE TABLET B Y MOUTH EVERY 6 HOURS FOR 5 DAYS complet ed ketorolac tromethamine 10 MG Oral Tablet ANNIKA ([facility]) Amoxicillin 875 MG Oral Tablet amoxicill in 875 mg tablet TAKE ONE TABLET BY MOUTH EVERY 12 HOURS FOR 10 DAYS amoxicillin 875 mg tablet TAKE ONE TABLE T BY MOUTH EVERY 12 HOURS FOR 10 DAYS compl eted amoxicillin 875 MG Oral Tablet ANNIKA ([facility]) Cyclobenzaprine hydrochloride 10 MG Oral Tablet cyclobenzaprine 10 mg tablet TAKE ONE TABLET BY MOUTH THREE TIMES A DAY FOR 7 DAYS cyclobenzaprine 10 mg tablet TAKE ONE TABLET BY MOUTH THREE TIMES A DAY FOR 7 DAYS completed cyclobenzaprine hydrochloride 10 MG Oral Tablet BUTLER ([facility]) OneTouch Ultra2 Meter USE DIRECTED 231117 completed OneTouch Ultra2 Meter BUTLER ([facility]) Cefuroxime 500 MG Oral Tablet cefuroxime axetil 500 mg tablet TAKE 1 TABLET BY MOUTH TWO TIMES A DAY cefuroxime axetil 500 mg tablet TAKE 1 T ABLET BY MOUTH TWO TIMES A DAY completed cefuroxim e 500 MG Oral Tablet ANNIKA ([facility]) Metformin hydrochloride 1000 MG Oral Tab let metformin 1,000 mg tablet TAKE ONE TABLET BY MOUTH TWICE A DAY metformin 1,000 mg tablet TAKE ONE TABLE T BY MOUTH TWICE A DAY completed me tformin hydrochloride 1000 MG Oral Tablet ANNIKA ([facility]) valacyclovir 1000 MG Oral Tablet valacyc lovir 1 gram tablet TAKE ONE TABLET BY MOUTH TWO TIMES A DAY FOR 3 DAYS valacyclovir 1 gram tablet TAKE ONE TABL ET BY MOUTH TWO TIMES A DAY FOR 3 DAYS compl eted valacyclovir 1000 MG Oral Tablet ANNIKA ([facility]) 0.5 ML dulaglutide 1.5 MG/ML Auto-Inject or [Trulicity] Trulicity 0.75 mg/0.5 mL subcutaneous pen injector INJECT 0.75MG UNDER THE SKIN ONCE A WEEK Trulicity 0.75 mg/0.5 mL subcutaneous pen injector INJECT 0.75MG UNDER THE SKIN ONCE A WEEK completed 0.5 ML dulaglutide 1.5 MG/ML Auto-Injector [Trulicity] ANNIKA ([facility]) Prednisone 10 MG Oral Tablet prednisone 10 mg tablet TAKE 2 TABLETS BY MOUTH ONCE A DAY prednisone 10 mg tablet TAKE 2 TABLETS BY MOUTH ONCE A DAY completed prednisone 10 MG Oral Tablet ANNIKA ([facility]) Cyclopentolate hydrochloride 10 MG/ML Op hthalmic Solution cyclopentolate 1 % eye drops INSTILL 1 DROP INTO LEFT EYE TWO TIMES A DAY DIRECTED cyclopentolate 1 % eye drops INSTILL 1 DROP INTO LEFT EYE TWO TIMES A DAY DIRECTED completed cyclopentolate hydrochloride 10 MG/ML Ophthalmic Solution ANNIKA ([facility]) prednisolone acetate 10 MG/ML Ophthalmic Suspension prednisolone acetate 1 % eye drops,suspension INSTILL 1 DROP INTO THE LEFT EYE DIRECTED EVERY HOUR prednisolone acetate 1 % eye drops,suspension INSTILL 1 DROP INTO THE LEFT EYE DIRECTED EVERY HOUR completed prednisolone acetate 10 MG/ML Ophthalmic Suspension ANNIKA ([facility]) Acetaminophen 325 MG / Hydrocodone Reema trate 5 MG Oral Tablet hydrocodone 5 mg- acetaminophen 325 mg tablet TAKE ONE TABLET BY MOUTH TWICE A DAY NEEDED FOR PAIN MAXIMUM DAILY DOSE 2 TABLETS hydrocodone 5 mg-acetaminophen 325 mg ta blet TAKE ONE TABLET BY MOUTH TWICE A DAY NEEDED FOR PAIN MAXIMUM DAILY DOSE 2 TABLETS completed acetam inophen 325 MG / hydrocodone bitartrate 5 MG Oral Tablet ANNIKA ([facility]) Fluconazole 150 MG Oral Tablet fluconazo le 150 mg tablet TAKE 1 TABLET BY MOUTH FOR 1 DOSE THEN 1 TABLET IN 3 DAYS fluconazole 150 mg tablet TAKE 1 TABLET BY MOUTH FOR 1 DOSE THEN 1 TABLET IN 3 DAYS completed fluconazole 150 MG Oral Tablet ANNIKA ([facility]) Triamcinolone Acetonide 1 MG/ML Topical Cream triamcinolone acetonide 0.1 % topical cream APPLY TO HANDS TWO TIMES A DAY FOR 14 DAYS AVOID CREAM TO FACE triamcinolone acetonide 0.1 % topical cream APPLY TO HANDS TWO TIMES A DAY FOR 14 DAYS AVOID CREAM TO FACE completed triamcinolone acetonide 1 MG/ML Topical Cream ANNIKA ([facility]) Atenolol 100 MG Oral Tablet atenolol 100 mg tablet TAKE ONE TABLET BY MOUTH DAILY atenolol 100 mg tablet TAKE ONE TABLET BY MOUTH DAILY completed atenolol 100 MG Oral Tablet ATHE NA ([facility]) Cephalexin 500 MG Oral Capsule cephalexi n 500 mg capsule TAKE ONE CAPSULE BY MOUTH TWICE A DAY DIRECTED FOR 10 DAYS cephalexin 500 mg capsule TAKE ONE CAPSULE BY MOUTH TWICE A DAY DIRECTED FOR 10 DAYS completed cephalexin 500 MG Oral Capsule ANNIKA ([facility]) Insurance Providers Payer name Policy type / Coverage type Policy ID Covered alliance party ID Covered alliance party's relationship to goldberg Policy Goldberg Plan Information [facility] COMMUNITY PLAN [facility] [id number] SP [id number] Medicaid S [id number] S [id number] MEDICAID P [id number] S [id number] Managed Care - [employer] P [id number] S [id number] Medicaid S [id number] Managed Care - [employer] P [id number] S [id number] [facility] Community Plan Commercial Self Managed Care - [employer] P [id number] S [id number] [facility] Comm Plan Medicaid F [id number] SELF [id number] [facility] MEDICAID [id number] Cynthia [id number] Medicaid S [id number] S [id number] Managed Care - [employer] P [id number] S [id number] [facility] I [id number] Self [id number] [facility] COMMUNITY PLAN [facility] [id number] SP [id number] Medicaid S [id number] S [id number] Managed Care - [employer] P [id number] S [id number] [employer](MCAID) O [id number] S [id number] MEDICAID [id number] SP [id number] ANSI-Medicaid [id number] ANSI-Medicaid [id number] ANSI-Medicaid [id number] ANSI-Medicaid [id number] ANSI-Medicaid [id number] ANSI-Medicaid [id number] Medicaid S [id number] S [id number] Managed Care [facility] P [id number] S [id number] [facility] Health Maintenance Organization (HMO) [id number] Self [id number] [facility] Health Maintenance Organization (HMO) [id number] Self [id number] [facility] Health Maintenance Organization (HMO) [id number] Self [id number] [facility] Health Maintenance Organization (HMO) [id number] Self [id number] [facility] Health Maintenance Organization (HMO) [id number] Self [id number] Managed [facility] P [id number] S [id number] MEDICAID M [id number] Self [id number] [facility] I [id number] Self [id number] Medicaid S [id number] S [id number] [facility] COMMUNITY PLAN MCDO [id number] SP [id number] Managed Care - [facility] Community Plan P [id number] S [id number] SELF PAY ONLY [id number] SP [id number] Medicaid S [id number] S [id number] Managed Care [facility] Community Plan P [id number] S [id number] Problems, Conditions, and Diagnoses Code Display Name Description Problem Type Effective Dates Data Source(s) 344668869 Nausea Nausea Problem 03/11/2020 12:00:00 AM ES T ANNIKA ([facility]) 54273334 Type 2 diabetes mellitus Type 2 Diabetes Mellitus Prob carrie 03/11/2020 12:00:00 AM EST ANNIKA ([facility]) F31.9 Bipolar disorder, unspecified Bipolar I Disorder, Current or most recent episode unspecified Condition 03/10/2020 12:00:00 AM EST [facility] ([facility]) F41.9 Anxiety disorder, unspecified Unspecified Anxiety Diso rder Condition 03/10/2020 12:00:00 AM EST [facility] ([facility]) [id number] Abnormal cytology findings Abnormal Cytology Findings Problem 12/11/2019 05:29:00 PM EDT ANNIKA ([facility]) [id number] Asthma Asthma Problem 12/11/2019 05:29:00 PM ED T ANNIKA ([facility]) 91677041 Hypertensive disorder Hypertensive Disorder Problem 12/11/2019 05:29:00 PM EDT ANNIKA ([facility]) 55041283 Depressive disorder Depressive Disorder Problem 1 05:29:00 PM EDT ANNIKA ([facility]) 12434511 Hypothyroidism Hypothyroidism Problem 12/11/2019 05:29: 00 PM EDT BUTLER ([facility]) 788.30 Urinary incontinence Urinary incontinence 07/03 02:29:56 PM EDT [facility] [id number] Clinical history and observation finding s Clinical History and Observation Findings Problem 07/04/2019 12:00:00 AM EDT ANNIKA ([facility]) L02.214 Cutaneous abscess of groin Cutaneous abscess of groin 03/04/2019 02:03:37 PM [facility] 250.80 Type 2 diabetes mellitus with hyperglyce bryan Type 2 diabetes mellitus with hyperglycemia 03/04/2019 02:03:37 PM [facility] [id number] Evaluation finding Evaluation Finding Problem 08[facility]2019 12:00[facility] [id number] Abscess of groin Abscess of Groin Problem 03/04/2019 12 :00:00 AM EST [facility]) E11.9 Type 2 diabetes mellitus without complic ations Type 2 diabetes mellitus without complications 02/10/2019 06:49:44 PM [facility] Surgeries/Procedures Procedure Description Date Indications Data Source(s) MHC Telemed E/M Lvl 3--Est pt 03/10/2020 12:00:[address] [facility] ([facility]) MHC Telemed E/M Lvl 3--Est pt 03/10/2020 12:00:00 AM EST - 03/10/2020 12:00:00 AM EST [facility] ([facility]) MHC Telemed E/M Lvl 3--Est pt 07/30/2019 12:00:00 AM E DT [facility] ([facility]) MHC Telemed E/M Lvl 3--Est pt 07/30/2019 12:00:00 AM EDT - 07/30/2019 12:00:00 AM EDT [facility] ([facility]) [id number]"Psychotherapy 06/20/2019 12:00:00 AM EDT [facility] ([facility]) [id number]"Psychotherapy 0 12:00:00 AM EDT - 06/20/2019 12:00:00 AM EDT [facility] ([facility]) MHC Telemed E/M Lvl 3--Est pt 05/28/2019 12:00:00 AM E DT [facility] ([facility]) MHC Telemed E/M Lvl 3--Est pt 05/28/2019 12:00:00 AM EDT - 05/28/2019 12:00:00 AM EDT [facility] ([facility]) MHC Telemed E/M Lvl 3--Est pt 05/22/2019 12:00:00 AM E DT [facility] ([facility]) MHC Telemed E/M Lvl 3--Est pt 05/22/2019 12:00:00 AM EDT - 05/22/2019 12:00:00 AM EDT [facility] ([facility]) Brief Individual Psychotherapy - 30 min 04/14/2019 12: 00:00 AM EST [facility] ([facility]) Brief Individual Psychotherapy - 30 min 04/14/2019 12:00:00 AM EST - 04/14/2019 12:00:00 AM EST [facility] ([facility]) I & D Abscess Simple 03/25/2019 12:00:00 AM EST [facility] ([facility], ) OFFICE OUTPATIENT VISIT 15 MINUTES 02/20/2019 12:00:00 AM EST [facility] ([facility]) OFFICE OUTPATIENT VISIT 15 MINUTES 02/20 12:00:00 AM EST - 02/20/2019 12:00:00 AM EST [facility] ([facility]) INCISION & DRAINAGE ABSCESS SIMPLE/SINGLE 02/13/2019 1 2:00:00 AM EST [facility] ([facility], [facility]) Results ID Date Data Source [id number] 02/27/2020 04:59:00 AM EST BRIGITTE Name Value Range Interpretation Code Description Data Kate rce(s) Supporting Document(s) SARS coronavirus 2 RNA [Presence] in Res piratory specimen by SARA with probe detection [facility]SDOH This lab was ordered by [facility] a nd reported by [facility]. ID Date Data Source [id number] 07/04/2019 02:07:28 PM EDT [facility] Measurements & CalculationsHeight: 64.50 inches 163.83 cm 5 ft. 4.5 in.Weight: 223 pounds 2 oz. 101.42 kg Body Mass Index (BMI): 37.84BMI Interpretation: ObeseBody Surface Area (BSA): 2.06Weight Management Education Done (Nutrition/Physical Activity)Vital SignsTemperature: 98.4F oral Pulse Rate: 66 beats/minuteRespiratory Rate: 16 respirations/minuteBlood Pressure: 107/77 right arm sitting automaticO2 Saturation: 98% room airVital Signs performed by: Jamarcus Lopez MA, July 04, 2019 2:19 PMInitial Intake Information From: patientRoom #: 14Infectious Disease / Travel ScreeningRecent travel for you or any close contacts? NoHave you had any close contact with anyone diagnosed with or under investigation for COVID-19 (coronavirus)? NoFever? NoRespiratory symptoms: cough, cold, congestion, shortness of breath, difficulty breathing? NoLoss of smell? NoLoss of taste? NoSmoking, Tobacco, Vaping or Smoke Exposure StatusSmoke Status: former smokerTobacco Use: NoDo you vape? NoPassive Smoke Exposure: YesMenstrual HistoryLast Menstrual Period (LMP): 06/23/2019Any possibility of ? NoHealthcare HistorySince your last office visit...Have you been admitted to the hospital? NoHave you been to an emergency room (ER) or urgent care clinic? NoHave you seen another healthcare provider? Yes - community clinicHave you seen a dentist? Yes - [facility] Int[facility] performed by: Jamarcus Lopez MA, July 04, 2019 2:12 PMRate Your HealthIn general, would you say your health is? GoodPain AssessmentAre you currently having any pain which... You would like your provider to address? Yes Affects your activity level? YesDepression Screening - PHQ-2Over the last two weeks, have you... Had little interest or pleasure in doing things? Not at all Been feeling down, depressed, or hopeless? Not at all PHQ-2 Score: 0Anxiety Screening - DIPAK-2Over the last two weeks, have you been... Feeling nervous, anxious, or on edge? Not at all Unable to stop or control worrying? Not at all DIPAK-2 Score: 0Food InsecurityWithin the past year...Did you worry whether your food would run out before you got money to buy more? NoWas there a time when the food you bought didn't last and you didn't have money to get more? NoPain AssessmentPain ScaleNumeric Rating Scale: 4 / 10Location: groin Duration: 1 weekFrequency: DailyCharacter/Quality: burningIs the pain radiating? NoScreening, Brief Intervention, & Referral to Treatment (SBIRT)Pre-Screening Questions How many times have you have 4 or more drinks in a day? 0How many times have you used an illegal drug or used a prescription medication for a non-medical reason? 0Performed by: Jamarcus Lopez MA, July 04, 2019 2:13 PMPatient History Medical History:AsthmaAnxiety DisorderDepressionDiabetes, Type 2HypertensionHypothyroidismAbnormal Pap SmearGestational DiabetesCOPDOBESITYVITAMIN D DEFIENCYSurgical History:Cholecystectomycyst r emoval (groin) Family History:Family History of AnemiaFamily History of ArthritisFH of AnxietyFamily History of AsthmaFamily History of DefectsFH Breast CancerFH DepressionFH DiabetesFH Heart DiseaseFH HypertensionFH MigrainesFH SeizuresFH Other CancerFamily History of AnginaFH HeadachesFH Lung CancerFH Psychiatric CareFH Weight DisorderFH P M SF[facility] EndometriosisSocial/Personal History:Smoking History:Patient is a former smoker.No Counseling Performed Reason - Not indicated Chief Complaintgrowth on groin RM 14 History of Present Illness (HPI)49 yr old female Pt here today with complaints of a painful growth on her groin area. Pt states thr growth started about a week ago. Pt states she is taking all medications with no side effects. Transitions of Care InboundProblem ReviewProblem List was reviewed and/or updated during this visit.Medication Reconciliation & ReviewMedication List was reviewed and/or updated during this visit, including review of any [id number]-[id number] medications, herbal therapies, and/or supplements.Allergy ReviewAllergy List was reviewed and/or updated during this visit.Adult Preventive CareProvider Calculated and Reviewed all Clinical Protocols for patient today. Labs/Meds/Other Counseling-Nutrition and Physical Activity:BMI Interpretation: Obese (07/04/2019) Counseling: Done (07/04/2019) Physical Activity: Done (07/04/2019)Review of Systems General: Denies loss of appetite, chills, dizziness, fatigue, fever, continued fever, headache, feeling ill, sweats, night sweats, sleep disturbances, weight loss. Cardiovascular: Denies chest pain, palpitations, feeling faint, trouble breathing w/exertion, SOB upon lying down, SOB at night, peripheral edema, elevated blood pressure, decreased heart rate. Respiratory: Denies cough, difficulty breathing, shortness of amanda th, excessive sputum, coughing up blood, wheezing, chest pain. Gastrointestinal: Denies nausea, vomiting, bleeding, burning, itching, irritation, cramps, diarrhea, bloody diarrhea, watery diarrhea, constipation, pain or discomfort, feeling any lumps or bumps, pain with BM, pain during receptive anal sex, change in bowel habits, fecal incontinence, abdominal pain, blood in stool, black or tarry stools, jaundice, heartburn, urge to defecate. Genitourinary: Complains of urinary incontinence. Physical ExamGeneral Appearance: well nourished, well hydrated, no acute distressAbdomen: 10 cm fluctuant abscess (boil) left inguinal areaGait & Station: normalOrientation: oriented to time, place, and personMood & Affect: no depression, anxiety, or agitationJudgment & Insight: intactCare Management Plan Transitions of CareInboundRate Your HealthIn general, would you say your health is? GoodAssessment & Plan Problems:Added: Urinary incontinence (ICD-788.30) (ICD10- R32)Assessment not SavedUrinary incontinence ([id number]): refer to urologyMedications:CEFUROXIME AXETIL 500 MG ORAL TABLETONETOUCH ULTRASOFT LANCETSONETOUCH ULTRA BLUE IN VITRO STRIPONETOUCH ULTRA 2 W/DEVICE KITTRAZODONE HCL 50 MG ORAL TABLETTRULICITY 1.5 MG/0.5ML SUBCUTANEOUS SOLUTION PEN- INJECTORLEVOTHYROXINE SODIUM 125 MCG ORAL TABLETFENOFIBRATE 160 MG ORAL TABLETCRESTOR 40 MG ORAL TABLETMETFORMIN HCL 1000 MG ORAL TABLETBASAGLAR KWIKPEN 100 UNIT/ML SUBCUTANEOUS SOLUTION PEN-INJECTORABILIFY 10 MG ORAL TABLETVITAMIN D3 2000 UNIT ORAL TABLETOXYBUTYNIN CHLORIDE 5 MG ORAL TABLETDYAZIDE 37.5-25 MG ORAL CAPSULEASPIR-81 81 MG ORAL TABLET DELAYED RELEASEATENOLOL 100 MG ORAL TABLETCAMILA 0.35 MG ORAL TABLETPAXIL 30 MG ORAL TABLETO2 2 LITERS NCLISINOPRIL 20 MG ORAL TABLETPEN NEEDLES 5/16" 31G X 8 MMONETOUCH ULTRA BLUE IN VITRO STRIPPEPCID 40 MG ORAL TABLETMedication Changes:New Prescription:CEFUROXIME AXETIL 500 MG ORAL TABLET-one tab po BID Qty: 30[Tablet] Refills: 0 Method: ElectronicAllergies:No Known Allergies (updated 04/29/2019) Orders:Surgical Consult [CPT-99967] Adult - Ofc Vst, EST, Level III [CPT-07670] Urology Consult [CPT-05067] Medications:CEFUROXIME AXETIL 500 MG ORAL TABLET (CEFUROXIME AXETIL) one tab po BID #30[Tablet] x 0 Route:ORAL Entered and Authorized by: Venkatesh Valentine DO Method used: Electronically to [facility]* ([facility]) [address] [place] [address] Note to Pharmacy: Route: ORAL; RxID: [id number] signed by Venkatesh Valentine DO on 07/04/2019 at 2:29 PM Histor y of Present Illness (HPI)49 yr old female Pt here today with complaints of a painful growth on her groin area. Pt states thr growth started about a week ago. Pt states she is taking all medications with no side effects. Area of left groin tender, grew over 3 days. She has had previous perirectal abscesses lanced in the past.also c/o urinary incontenance.Assessment & Plan Name Value Range Interpretation Code Description Data Kate rce(s) Supporting Document(s) ID Date Data Source [id number] 04/29/2019 10:10:00 AM [facility] Name Value Range Interpretation Code Description Data Kate rce(s) Supporting Document(s) [id number] 9.1 % N [facility] ID Date Data Source [id number] 04/29/2019 09:35:22 AM [facility] Measurements & CalculationsHeight: 64.50 inches 163.83 cm 5 ft. 4.5 in.Weight: 215 pounds 97.73 kg Body Mass Index (BMI): 36.47BMI Interpretation: ObeseBody Surface Area (BSA): 2.03Weight Management Education Done (Nutrition/Physical Activity)Vital SignsTemperature: 97.7F oral Pulse Rate: 71 beats/minuteRespiratory Rate: 18 respirations/minuteBlood Pressure: 124/83 right arm sitting automaticO2 Saturation: 97% room airVital Signs performed by: Marietta Schroeder LPN, April 29, 2019 9:43 AMVital Signs performed by: Tristin TORRES, April 29, 2019 9:50 AMInitial Intake Information from: patientRoom #: 9Smoking, Tobacco, Vaping or Smoke Exposure StatusSmoke Status: former smokerTobacco Use: NoDo you vape? NoPassive Smoke Exposure: YesPassive Smoke Exposure comments: outsideMenstrual HistoryLast Menstrual Period (LMP): 04/09/2019Any possibility of ? NoHealthcare HistorySince your last office visit...Have you been admitted to the hospital? NoHave you been to an emergency room (ER) or urgent care clinic? NoHave you seen another healthcare provider? Yes [facility] you [facility] a [facility]? [facility] Your HealthIn general, would you say your health is? FairPain AssessmentAre you currently having any pain which... You would like your provider to address? No Affects your activity level? NoDepression Screening - PHQ-2Over the last two weeks, have you... Had little interest or pleasure in doing things? Not at all Been feeling down, depressed, or hopeless? Not at all PHQ-2 Score: 0Infectious Disease / Travel ScreeningRecent travel for you, your family, and/or any sexual partners? NoScreening, Brief Intervention, & Referral to Treatment (SBIRT)Pre- Screening Questions How many times have you have 4 or more drinks in a day? 0How many times have you used an illegal drug or used a prescription medication for a non-medical reason? 0Performed by: Marietta Schroeder LPN, April 29, 2019 9:38 AMPatient History Medical History:AsthmaAnxiety DisorderDepressionDiabetes, Type 2HypertensionHypothyroidismAbnormal Pap SmearGestational DiabetesCOPDOBESITYVITAMIN D DEFIENCYSurgical History:Cholecystectomycyst removalFamily History:Family History of AnemiaFamily History of ArthritisFH of AnxietyFamily History of AsthmaFamily History of DefectsFH Breast CancerFH DepressionFH DiabetesFH Heart DiseaseFH HypertensionFH MigrainesFH SeizuresFH Other CancerFamily History of AnginaFH HeadachesFH Lung CancerFH Psychiatric CareFH Weight DisorderFH P M SFH EndometriosisSocial/Personal History:Smoking History:Patient is a former smoker.No Counseling Performed Reason - Not indicated Chief ComplaintHTN History of Present Illness (HPI)48 yo female here for follow-up for HTN. Pt states she is getting headaches more regularly since her BP has been elevated. Pt states she is taking all her meds so not sure what is happening. Pt states she is checking her BP at home twice daily, reports home BPs are elevated. Pt has no symptoms at time of high BPs. Usually in the 140s/80s-90s. Transitions of Care InboundProblem ReviewProblem List was reviewed and/or updated during this visit.Medication Reconciliation & ReviewMedication List was reviewed and/or updated during this visit, including review of any rnvm-vkc-fvrdtjk medications, herbal therapies, and/or supplements.Allergy ReviewAllergy List was reviewed and/or updated during this visit. Patient has no known allergies.Adult Preventive CareProvider Calculated and Reviewed all Clinical Protocols for patient today. Labs/Meds/Other Counseling-Nutrition and Physical Activity:BMI Interpretation: Obese (04/29/2019) Counseling: Done (04/29/2019) Physical Activity: Done (04/29/2019)Review of Systems General: Denies chills, dizziness, fatigue, fever, headache, feeling ill. Cardiovascular: Denies chest pain, palpitations, feeling faint, peripheral edema. Respiratory: Denies cough, difficulty breathing, shortness of breath. Gastrointestinal: Denies nausea, vomiting, diarrhea, pain or discomfort. Neurologic: Denies weakness, feeling faint. Physical ExamGeneral Appearance: we ll nourished, well hydrated, no acute distress, obese, femaleRespiratory, Auscultation: clear to auscultation bilaterally; no rales, rhonchi, or wheezesCardiovascular, Auscultation: S1, S2 audible; no murmur, rub, or gallop; RRRPeripheral Circulation: no clubbing, cyanosis, edema, or varicositiesAbdomen: soft, non-tender, no masses, bowel sounds normal, protuberant abdomen with large panusGait & Station: normalOrientation: oriented to time, place, and personMood & Affect: no depression, anxiety, or agitationJudgment & Insight: intactCare Management Plan Transitions of CareInboundRate Your HealthIn general, would you say your health is? FairAssessment & Plan Problems:Assessed:Type 2 diabetes mellitus with hyperglycemia (ICD-250.80) (FDJ70-B31.65) Assessment: Instructions: Recommend low carbohydrate diet: reduce pasta, bread, potatoes, rice. If you do eat carbohydrates, better choices are whole wheat and brown rice products. Recommend portion control and avoidance of soda and sugary foods. Increase physical activity and monitor weight. Recommend annual evaluation of eye and foot health, either here or with a specialist office. Monitor blood sugars at home and call with any concerns.Cutaneous abscess of groin (GXY69-I17.214) Assessment: Instructions: Resolved, signed for records today from your surgeon.HYPERTENSION (ICD-401.9) (AHC58-O35) Assessment: Instructions: Appears at goal today. Recommend reduced salt intake, cut back on caffeine and alcohol, increase physical activity. We reviewed the care home risks associated with uncontrolled high blood pressure, including stroke and heart attack. Goal BP is <140/90, please call the office if your blood pressures are consistently running higher than that cutoff. Call 911 or report to the closest ER for chest pain, shortness of breath, dizziness, or passing out. Please bring your at home BP monitor to your next appointment for comparison.Removed:Type 2 diabetes mellitus without complications (ICD10-E 11.9)Patient Instructions/Care Plan: Type 2 diabetes mellitus with hyperglycemia: Recommend low carbohydrate diet: reduce pasta, bread, potatoes, rice. If you do eat carbohydrates, better choices are whole wheat and brown rice products. Recommend portion control and avoidance of soda and sugary foods. Increase physical activity and monitor weight. Recommend annual evaluation of eye and foot health, either here or with a specialist office. Monitor blood sugars at home and call with any concerns.Cutaneous abscess of groin: Resolved, signed for records today from your surgeon.HYPERTENSION: Appear s at goal today. Recommend reduced salt intake, cut back on caffeine and alcohol, increase physical activity. We reviewed the long term care administrator risks associated with uncontrolled high blood pressure, including stroke and heart attack. Goal BP is <140/90, please call the office if your blood pressures are consistently running higher than that cutoff. Call 911 or report to the closest ER for chest pain, shortness of breath, dizziness, or passing out. Please bring your at home BP monitor to your next appointment for comparison. Plan developed in collaboration with patient and/or familyMedications:ONETOUCH ULTRASOFT LANCETSONETOUCH ULTRA BLUE IN VITRO STRIPONETOUCH ULTRA 2 W/DEVICE KITTRAZODONE HCL 50 MG ORAL TABLETTRULICITY 1.5 MG/0.5ML SUBCUTANEOUS SOLUTION PEN-INJECTORLEVOTHYROXINE SODIUM 125 MCG ORAL TABLETFENOFIBRATE 160 MG ORAL TABLETCRESTOR 40 MG ORAL TABLETMETFORMIN HCL 1000 MG ORAL TABLETBASAGLAR KWIKPEN 100 UNIT/ML SUBCUTANEOUS SOLUTION PEN-INJECTORABILIFY 10 MG ORAL TABLETVITAMIN D3 2000 UNIT ORAL TABLETOXYBUTYNIN CHLORIDE 5 MG ORAL TABLETDYAZIDE 37.5-25 MG ORAL CAPSULEASPIR-81 81 MG ORAL TABLET DELAYED RELEASEATENOLOL 100 MG ORAL TABLETCAMILA 0.35 MG ORAL TABLETPAXIL 30 MG ORAL TABLETO2 2 LITERS NCLISINOPRIL 20 MG ORAL TABLETPEN NEEDLES 5/16" 31G X 8 MMONETOUCH ULTRA BLUE IN VITRO STRIPPEPCID 40 MG ORAL TABLETMedication Changes:Removed:FLUCONAZOLE 150 MG ORAL TABLET-1 po in 7-10 days prn yeast vagtinitis from abx Qty: 1[Tablet] Refills: 1, ORTHO MICRONOR 0.35 MG ORAL TABLETAllergies:No Known Allergies (updated 04/29/2019) Orders:HgBA1c [CPT-12883] 28523 - Venipuncture [CPT-72062] Adult - Ofc Vst, EST, Level III [CPT-38526] Follow-Up Return to clinic: in 90 days for follow upAdditional Follow-Up: T2DM, HTNClinical Visit Summary Completed]Labs In-House Blood TestsDate/Time Collected: April 29, 2019 10:13 AMTest Result Reference Range Normal ValueComments: labs done in office, taken from right ac, tolerated well.Jsoefina Díaz, April 29, 2019 10:13 AM Name Value Range Interpretation Code Description Data Kate rce(s) Supporting Document(s) ID Date Data Source [id number] 03/04/2019 01:02:54 PM EST [facility] Measurements & CalculationsHeight: 64.50 inches 163.83 cm 5 ft. 4.5 in.Weight: 213 pounds 96.82 kg Body Mass Index (BMI): 36.13BMI Interpretation: ObeseBody Surface Area (BSA): 2.02Vital SignsTemperature: 97.6FPulse Rate: 94 beats/minuteRespiratory Rate: 16 respirations/minuteBlood Pressure: 124/86 left arm sitting automaticO2 Saturation: 98% room airVital Signs performed by: Natalee Zuñiga MA, March 04, 2019 1:12 PMVital Signs performed by: Tristin TORRES, March 04, 2019 1:55 PMMultiple Vital SignsInitial BP: 133/91Vitals #2BP: 124/86 (primary)Initial Intake Information from: patientRoom #: 9Infectious Disease- Travel Have you or your sexual partner travelled outside of the country recently? NoSmoking, Tobacco or Smoke Exposure StatusSmoke Status: former smokerTobacco Use: NoPassive Smoke Exposure: NoMenstrual HistoryLast Menstrual Period (LMP): 02/04/2019LMP History: ApproximateAny possibility of ? NoHealthcare HistorySince your last office visit...Have you been admitted to the hospital? Yes - [facility]- cyst removalHospital admission date reported today: 02/20/2019Have you been to an emergency room (ER) or urgent care clinic? NoHave you seen another healthcare provider? Yes - [facility]Have you seen a dentist? Yes - [facility] dentalIntake performed by: Natalee Zuñiga MA, March 04, 2019 1:07 PMRate Your HealthIn general, would you say your health is? FairPain AssessmentAre you currently having any pain which... You would like your provider to address? Yes Affects your activity level? YesDepression Screening - PHQ-2Over the last two weeks, have you... Had little interest or pleasure in doing things? Not at all Been feeling down, depressed, or hopeless? Not at all PHQ-2 Score: 0Anxiety Screening - DIPAK-2Over the last two weeks, have you been... Feeling nervous, anxious, or on edge? Not at all Unable to stop or control worrying? Not at all DIPAK-2 Score: 0Infectious Disease- Travel Cont. Any possibility of ? NoPain AssessmentPain ScaleNumeric Rating Scale: 4 / 10Location: where cyst was removedDuration: 2 weeksFrequency: DailyCharacter/Quality: achingIs the pain radiating? NoScreening, Brief Intervention, & Referral to Treatment (SBIRT)Pre-Screening Questions How many times have you have 4 or more drinks in a day? 0How many times have you used an illegal drug or used a prescription medication for a non-medical reason? 0Performed by: Natalee Zuñiga MA, March 04, 2019 1:08 PMPatient History Medical History:AsthmaAnxiety DisorderDepressionDiabetes, Type 2HypertensionHypothyroidismAbnormal Pap SmearGestational DiabetesCOPDOBESITYVITAMIN D DEFIENCYSurgical History:Cholecystectomycyst removalFamily History:Family History of AnemiaFamily History of ArthritisFH of AnxietyFamily History of AsthmaFamily History of DefectsFH Breast CancerFH DepressionFH DiabetesFH Heart DiseaseFH HypertensionFH MigrainesFH SeizuresFH Other CancerFamily History of AnginaFH HeadachesFH Lung CancerFH Psychiatric CareFH Weight DisorderFH P M SFH EndometriosisSocial/Personal History:Smoking History:Patient is a former smoker.No Counseling Performed Reason - Not indicated Smoking Status: former smokerChief Complainthosp fuHistory of Present Illness (HPI)48 year old female patient here today for a hospital follow-up. Patient states she needs a dressing change at this appointment. Pt was admitted to [facility] on 02/21/19 for abscesses of the groin. During admission, patient was brought to the OR on 02/21/19 for an I&D by Dr. Vasquez. Discharged 02/26/2019. Discharge summary reviewed, recommendation was for 10 days total of Augmentin, intended to be started on 02/26/2019, and dressing changes every 2 days. Pt reports she is unable to perform dressing changes independently. Had [facility] home health perform dressing changes on 02/27/2019 and 03/01/2019, but no further scheduled home care at this time. Pt reports two open wounds that they have been packing with iodoform gauze every two days. Pt reports reduced pain, less swelling, and no fevers since discharge. Pt has no acute concerns at this time.HPI performed by: Tristin TORRES, March 04, 2019 1:54 PMTransitions of Care InboundProblem ReviewProblem List was reviewed and/or updated during this visit.Medication Reconciliation & ReviewMedication List was reviewed and/or updated during this visit, including review of any esfb-glx-aeszwon medications, herbal therapies, and/or supplements.Allergy ReviewAllergy List was reviewed and/or updated during this visit. Patient has no known allergies.Provider Calculated and Reviewed all Clinical Protocols for patient today. Cancer Screening Pap Smear/HPV TestingReviewed: Patient Refused Pap SmearPrevious Comments: PP 02/2017 (02/07/2019)Today's Comments[facility] pt states she will wait . 03/04/2019Review of Systems General: Denies loss of appetite, chills, fever, feeling ill, night sweats. Cardiovascular: Denies chest pain, palpitations, feeling faint. Respiratory: Denies cough, shortness of breath, wheezing. Gastrointestinal: Denies nausea, vomiting, diarrhea, constipation, p ain or discomfort, abdominal pain. Skin: Complains of see HPI. Physical ExamGeneral Appearance: well nourished, well hydrated, no acute distress, obese, femaleEyes, External: conjunctivae and lids normal, EOMIRespiratory, Auscultation: clear to auscultation bilaterally; no rales, rhonchi, or wheezesRespiratory, Effort: no intercostal retractions or use of accessory musclesCardiovascular, Auscultation: S1, S2 audible; no murmur, rub, or gallop; RRRPeripheral Circulation: no clubbing, cyanosis, edema, or varicositiesAbdomen: soft, non-tender, no masses, bowel sounds normal, protuberant abdomen with large panusGait & Station: normalSkin, Inspection: 2cm wide 1cm deep open wound in suprapubic region with granulation tissue and scant amount of mucoid yellow discarge at bed of the wound; large approximately 10cm linear incision of right labia with depth > 5cm, minimal mucoid yellow discharge in the wound; large erythematous mildly tender area of induration involving the right groin; napper grinder for exam Natalee ZuñigaOrientation: oriented to time, place, and personMood & Affect: no depression, anxiety, or agitationJudgment & Insight: intactCare Management Plan Transitions of CareInboundRate Your HealthIn general, would you say your health is? FairAssessment & Plan Problems:Added: Cutaneous abscess of groin (LBV72-A55.214) Assessment: Instructions: Wound care and dressing changes provided in the office today. Referral generated for general surgical outpatient followup as well as home care for dressing changes. ER precautions for worsening symptoms. Appointment given here for 03/06/2019 for dressing change if home care is unable to have a visit by 03/06/2019.Type 2 diabetes mellitus with hyperglycemia (ICD-250.80) (KHC57-E94.65) Assessment: Instructions: Reiterated the importance of diabetic control with wound healing.Cutaneous abscess of groin (ZWJ22-F34.214) Assessment: Time spent 15 minutes, in addition to routine visit, by this provider performing wound care and dressing change.Patient Instructions/Care Plan: Cutaneous abscess of groin: Wound care and dressing changes provided in the office today. Referral generated for general surgical outpatient followup as well as home care for dressing changes. ER precautions for worsening symptoms. Appointment given here for 03/06/2019 for dressing change if home care is unable to have a visit by 03/06/2019.Type 2 diabetes mellitus with hyperglycemia: Reiterated the importance of diabetic control with wound healing. Plan developed in collaboration with patient and/or familyMedications:ORTHO MICRONOR 0.35 MG ORAL TABLETFLUCONAZOLE 150 MG ORAL TABLETONETOUCH ULTRASOFT LANCETSONETOUCH ULTRA BLUE IN VITRO STRIPONETOUCH ULTRA 2 W/DEVICE KITTRAZODONE HCL 50 MG ORAL TABLETT RULICITY 1.5 MG/0.5ML SUBCUTANEOUS SOLUTION PEN-INJECTORLEVOTHYROXINE SODIUM 125 MCG ORAL TABLETFENOFIBRATE 160 MG ORAL TABLETCRESTOR 40 MG ORAL TABLETMETFORMIN HCL 1000 MG ORAL TABLETBASAGLAR KWIKPEN 100 UNIT/ML SUBCUTANEOUS SOLUTION PEN- INJECTORABILIFY 10 MG ORAL TABLETVITAMIN D3 2000 UNIT ORAL TABLETOXYBUTYNIN CHLORIDE 5 MG ORAL TABLETDYAZIDE 37.5-25 MG ORAL CAPSULEASPIR-81 81 MG ORAL TABLET DELAYED RELEASEATENOLOL 100 MG ORAL TABLETCAMILA 0.35 MG ORAL TABLETPAXIL 30 MG ORAL TABLETO2 2 LITERS NCLISINOPRIL 20 MG ORAL TABLETPEN NEEDLES 5/16" 31G X 8 MMONETOUCH ULTRA BLUE IN VITRO STRIPPEPCID 40 MG ORAL TABLETMedication Changes:Added: ORTHO MICRONOR 0.35 MG ORAL TABLETAllergies:No Known Allergies (updated 03/04/2019) Orders:Surgical Consult [CPT-62405] Other Referral [[id number]] Adult - Ofc Vst, EST, Level IV [CPT-75549] Follow-Up Return to clinic: in 2-3 days for follow upAdditional Follow-Up: wound care, 2 weeks (or soonest available) diabetes follow-up with Dr. Gerardlinical Visit Summary Completed Name Value Range Interpretation Code Description Data Kate rce(s) Supporting Document(s) ID Date Data Source [id number] 02/13/2019 12:40:00 PM EST [facility] ([facility], [facility]) Name Value Range Interpretation Code Description Data Kate rce(s) Supporting Document(s) Bacteria identified in Wound by Culture Laboratory test result [facility] ([facility], [facility]) <content>FULL REPORT IN LAB NOTES ([facility] nd [facility]).</content>
<content>NORMAL VELIA PRESENT</content>
<content></content>
<content>ORGANISM 1: STREP AGALACTIAE GROUP B</content>
<content></content>
<content>QUANTITY OF GROWTH FEW</content>
<content></content>
<content></content>
<content>ORGAN ISM 1: STREP AGALACTIAE GROUP B</content>
<content> </content>
<content>STREP AGALACTIAE GROUP B: REACTION</content>
<content>ICR (INDUCIBLE CC RESISTANCE) IV ICR TEST RESULT</content>
<content>TETRACYCLINE PO 250 mg qid >=16 R</content>
<content>PENICILLIN G IV 1 mu q6h <=0.06 S</content>
<content>PENICILLIN G PO 250mg q6h fasting <=0.06 S</content>
<content>AMPICILLIN IV 500mg q6h <=0.25 S</content>
<content>AMPICILLIN PO 500mg q6h fasting <=0.25 S</content>
<content>ERYTHROMYCIN IV 500mg q6h 2 R</content>
<content>ERYTHROMYCIN PO 500mg q6h 2 R</content>
<content>LEVOFLOXACIN IV 500mg qd 0.5 S</content>
<content>LEVOFLOXACIN PO 250mg qd 0.5 S</content>
<content>LEVOFLOXACIN PO 500mg qd 0.5 S</content>
<content>VANCOMYCIN IV 500mg q8h 0.5 S</content>
<content>MOXIFLOXACIN (AVELOX) IV 400MG QD 0.12 S</content>
<content> MOXIFLOXACIN (AVELOX) PO 400MG QD 0.12 S</content>
<content>CEFTRIAXONE IV 1gm q24h <=0.12 S</content>
<content>CEFOTAXIME IV 1gm q8h <=0.12 S</content>
<content>An isolate with a (+) POSITIVE ICR test is considered</content>
<content>CLINDAMYCIN RESISTANT; however, clindamycin may still</content>
<content>be effective in some patients.</content>
<content>An isolate with a (-) NEGATIVE ICR test is considered</content>
<content>CLIDAMYCIN SENSITIVE.</content>
<content></content> ID Date Data Source [id number] 02/07/2019 09:28:35 AM [facility] Measurements & CalculationsHeight: 64.50 inches 163.83 cm 5 ft. 4.5 in.Weight: 214 pounds 97.27 kg Body Mass Index (BMI): 36.30BMI Interpretation: ObeseBody Surface Area (BSA): 2.03Weight Management Education Done (Nutrition/Physical Activity)Vital SignsTemperature: 97.0F oral Pulse Rate: 66 beats/minuteRespiratory Rate: 17 respirations/minuteBlood Pressure: 108/75 left arm sitting automaticO2 Saturation: 98% room airVital Signs performed by: Akua Kramer MA, February 07, 2019 9:39 AMMultiple Vital SignsInitial BP: 97/68Vitals #2BP: 108/75 (primary)Initial Intake Information from: patientRoom #: 14Infectious Disease- Travel Have you or your sexual partner travelled outside of the country recently? NoSmoking, Tobacco or Smoke Exposure StatusSmoke Status: former smokerTobacco Use: NoPassive Smoke Exposure: NoMenstrual HistoryLast Menstrual Period (LMP): 02/04/2019Any possibility of ? NoHealthcare HistorySince your last office visit...Have you been admitted to the hospital? NoHave you been to an emergency room (ER) or urgent care clinic? NoHave you seen another healthcare provider? [facility] PPHave you seen a dentist? Yes - [facility] Intake performed by: Akua Kramer MA, February 07, 2019 9:33 AMRate Your HealthIn general, would you say your health is? GoodPain AssessmentAre you currently having any pain which... You would like your provider to address? Yes Affects your activity level? YesDepression Screening - PHQ-2Over the last two weeks, have you... Had little interest or pleasure in doing things? Not at all Been feeling down, depressed, or hopeless? Not at all PHQ-2 Score: 0Anxiety Screening - DIPAK-2Over the last two weeks, have you been... Feeling nervous, anxious, or on edge? Not at all Unable to stop or control worrying? Not at all DIPAK-2 Score: 0Infectious Disease- Travel Cont. Any possibility of ? NoPain AssessmentPain ScaleNumeric Rating Scale: 4 / 10Location: Body WideDuration: chronicCharacter/Quality: aching and pressureIs the pain radiating? YesScreening, Brief Intervention, & Referral to Treatment (SBIRT)Pre-Screening Questions How many times have you have 4 or more drinks in a day? 0How many times have you used an illegal drug or used a prescription medi cation for a non-medical reason? 0Performed by: Akua Kramer MA, February 07, 2019 9:33 AMPatient History Medical History:AsthmaAnxiety DisorderDepressionDiabetes, Type 2HypertensionHypothyroidismAbnormal Pap SmearGestational DiabetesCOPDOBESITYVITAMIN D DEFIENCYSurgical History:CholecystectomyFamily History:Family History of AnemiaFamily History of ArthritisFH of AnxietyFamily History of AsthmaFamily History of DefectsFH Breast CancerFH DepressionFH DiabetesFH Heart DiseaseFH HypertensionFH MigrainesFH SeizuresFH Other CancerFamily History of AnginaFH HeadachesFH Lung CancerFH Psychiatric CareFH Weight DisorderFH P M SFH EndometriosisSocial/Personal History:Smoking History:Patient is a former smoker.No Counseling Performed Reason - Not indicated Smoking Status: former smokerChief Complaintfollow-up visit boilHistory of Present Illness (HPI)48 yo female here for a follow up for boil, states that she believes this is gone. Pt states that she has had body wide pain that began approx 8 months ago. She said that it is beginning to effect her sleep: she says that it begins in her legs & her feet then the pain moves up from there. She would like a refill on her Diflucan as she feels she has a yeast infection. I, Akua Kramer MA, am scribing for and in the presence of, Dr Tyson Hong glucometer has stopped working, need refill on Metformin, Pepcid & Oxybutin. DM is 8/10 in severity, worse with poor diet, better with compliance, non- radiating not associated with cardiac or neurologic sx's. Last A1C was 14.0 on 12/05/2018. Ordering for the end of this month. Sending the script for one touch ultra kit to replace the old one that is broken. Will begin on pain medication for the legs & feet pain. Increasing the dosing on Trulicity to 1.5mgs as her sugar levels are still above 200.Recent abscess 99% healedHx hypothyroidismTransitions of Care InboundProblem ReviewProblem List was reviewed and/or updated during this visit.Medication Reconciliation & ReviewMedication List was reviewed and/or updated during this visit, including review of any dqxq-qyc-muihhww medications, herbal therapies, and/or supplements.Allergy ReviewAllergy List was reviewed and/or updated during this visit.Adult Preventive CareProvider Calculated and Reviewed all Clinical Protocols for patient today. Labs/Meds/Other Counseling- Nutrition and Physical Activity:BMI Interpretation: Obese (02/07/2019) Counseling: Done (02/07/2019) Physical Activity: Done (02/07/2019)Cancer Screening Pap Smear/HPV TestingReviewed: Previous Comments: PP 02/2017 (12/20/2018)Today's Comments: PP 02/2017Colorectal Screening: Patient refused colorectal screeningReview of Systems General: GEN: No night sweats, weight loss, fevers, chillsEyes: No vision changesEars: No hearing lossNose: No sinus painThroat: No sore throatResp: No sob, wheezingCV: No chest painGI: No abdominal painGU: No dysuria, urinary frequencyMusculoskeletal: + myalgias, arthralgiasNeuro: No QUINTERO, unilateral paresthesias, weaknessLympatics: No Lymph node swellingEndocrine: No polydipsia, polyuriaPhysical ExamGeneral Appearance: well nourished, well hydrated, no acute distressEyes, External: conjunctivae and lids normal, EOMIExternal Ears: normal, no lesions or deformitiesHearing: grossly intactOtoscopy: canals clear, tympanic membranes intact, no fluid, light reflex intact bilaterallyExternal Nose: normal, no lesions or deformitiesNasal: mucosa, septum, and turbinates normal, nares patentLips/Teeth/Gums: normal dentition, no gingival inflammation, no labial lesionsPharynx: tongue normal, posterior pharynx without erythema or exudate, no thrush/aphthous ulcerRespiratory, Auscultation: clear to auscultation bilaterally; no rales, rhonchi, or wheezesRespiratory, Effort: no intercostal retractions or use of accessory musclesCardiovascular, Auscultation: S1, S2 audible; no murmur, rub, or gallop; RRRDorsalis Pedis Pulse, Right: 1Dorsalis Pedis Pulse, Left: 1Peripheral Circulation: no clubbing, cyanosis, edema, or varicositiesAbdomen: soft, non-tender, no masses, bowel sounds normalGait & Station: normalFoot Inspection, Right: Normal examFoot Inspection, Left: Normal examSkin, Inspection: prior abscess 99% healed on L buttockMonofilament, Right: Sensory intactMonofilament, Left: Sensory intactOrientation: oriented to time, place, and personMood & Affect: no depression, anxiety, or agitationJudgment & Insight: intactCare Management Plan Transitions of CareInboundRate Your HealthIn general, would you say your health is? GoodAssessment & Plan Problems:Added: Type 2 diabetes mellitus without complications (VPA94-V14.9) Assessment: Instructions: Counseled on 1800 jagdish ADA, low cholesterol, low salt diets,exercise. Counseled on GLP-1 medication, risks and benefits. Patient has no family hisotry of medullary thyroid cancer/ MEN syndromes and wishes to proceed. Patient education and training completed/ scheduled. All questions answeredAssessed:Perirectal abscess (ICD-566) (HNE49-G40.1) Assessment: Instructions: resolvedAcute vaginitis (ICD-616.10) ([id number]-M78.0) Assessment: Instructions: Counseled patient on all diagnoses/ treatments. Return to clinic/ ER for any worsening symptoms or concernsMedication issuedAssessment not SavedScreening for malignant neoplasm of breast ([id number]): Patient Instructions/Care Plan: Type 2 diabetes mellitus without complications: Counseled on 1800 jagdish ADA, low cholesterol, low salt diets,exercise. Counseled on GLP-1 medication, risks and benefits. Patient has no family hisotry of medullary thyroid cancer/ MEN syndromes and wishes to proceed. Patient education and training completed/ scheduled. All questions answeredPerirectal abscess: resolvedAcute vaginitis: Counseled patient on all diagnoses/ treatments. Return to clinic/ ER for any worsening symptoms or concernsMedication issued Plan developed in collaboration with patient and/or familyMedications:FLUCONAZOLE 150 MG ORAL TABLETONETOUCH ULTRASOFT LANCETSONETOUCH ULTRA BLUE IN VITRO STRIPONETOUCH ULTRA 2 W/DEVICE KITTRAZODONE HCL 50 MG ORAL TABLETTRULICITY 1.5 MG/0.5ML SUBCUTANEOUS SOLUTION PEN- INJECTORLEVOTHYROXINE SODIUM 125 MCG ORAL TABLETFENOFIBRATE 160 MG ORAL TABLETCRESTOR 40 MG ORAL TABLETMETFORMIN HCL 1000 MG ORAL TABLETBASAGLAR KWIKPEN 100 UNIT/ML SUBCUTANEOUS SOLUTION PEN-INJECTORABILIFY 10 MG ORAL TABLETVITAMIN D3 2000 UNIT ORAL TABLETOXYBUTYNIN CHLORIDE 5 MG ORAL TABLETDYAZIDE 37.5-25 MG ORAL CAPSULEASPIR-81 81 MG ORAL TABLET DELAYED RELEASEATENOLOL 100 MG ORAL TABLETCAMILA 0.35 MG ORAL TABLETPAXIL 30 MG ORAL TABLETO2 2 LITERS NCLISINOPRIL 20 MG ORAL TABLETPEN NEEDLES 5/16" 31G X 8 MMONETOUCH ULTRA BLUE IN VITRO STRIPPEPCID 40 MG ORAL TABLETMedication Changes:Added: TRAZODONE HCL 50 MG ORAL TABLET-po bedtime prnRefilled:TRULICITY 1.5 MG/0.5ML SUBCUTANEOUS SOLUTION [id number] 1.5 mg SQ weekly Qty: 4[Prefilled Pen Syrnge] Refills: 5 Method: ElectronicOXYBUTYNIN CHLORIDE 5 MG ORAL TABLET-1 pill po bid Qty: 60[Tablet] Refills: 5 Method: ElectronicMETFORMIN HCL 1000 MG ORAL TABLET-1 pill po bid Qty: 60[Tablet] Refills: 5 Method: ElectronicPEPCID 40 MG ORAL TABLET-1 tab po daily Qty: 30[Tablet] Refills: 5 Method: ElectronicNew Presc ription:CallystroTOUCH ULTRA 2 W/DEVICE KIT-uad Qty: 1[Kit] Refills: 1 Method: ElectronicONETOUCH ULTRA BLUE IN VITRO STRIP-test qid Qty: 120[Strip] Refills: 5 Method: ElectronicONETOUCH ULTRASOFT LANCETS-test qid Qty: 120[Unspecified] Refills: 5 Method: ElectronicFLUCONAZOLE 150 MG ORAL TABLET-1 po in 7-10 days prn yeast vagtinitis from abx Qty: 1[Tablet] Refills: 1 Method: ElectronicRemoved:DOXYCYCLINE HYCLATE 100 MG ORAL TABLET-1 po bid, FLUCONAZOLE 150 MG ORAL TABLET-1 po now- can repeat in 7-10 days prn yeast vagtinitis from abx, FLONASE 50 MCG/ACT NASAL SUSPENSION-one to two sprays to each nostril daily as neededChanged:From: SUBCUTANEOUS TRULICITY 0.75 MG/0.5ML SUBCUTANEOUS SOLUTION PEN-INJECTOR Qty: [id number] Refills: 4[Prefilled Pen Syrnge] To: TRULICITY 1.5 MG/0.5ML SUBCUTANEOUS SOLUTION [id number] 1.5 mg SQ weekly Qty: 4[Prefilled Pen Syrnge] Refills: 5Allergies:No Known Allergies (updated 06/18/2017) Orders:COMP METABOLIC PANEL [CPT-08702] HgBA1c [CPT-90155] LIPID PANEL [CPT-10018] TSH [CPT-06864] T-4 free [CPT-58679] Microalbumin urine [[id number],[id number]] Adult - Ofc Vst, EST, Level IV [CPT-14324] Follow-Up Return to clinic: in 90 days for f/uAdditional Follow-Up: Counseled patient on all diagnoses/ treatments. Return to clinic/ ER for any worsening symptoms or concernsClinical Visit Summary DeclinedDiabetes Management - Exam Left Foot Check (reviewed today): Normal exam (12/06/2018) Left Foot Check Today: Normal exam Left Pedal Pulse (reviewed today): 2 (12/06/2018) Left Pedal Pulse Today: 1 Left Monofilament (reviewed today): Sensory intact (12/06/2018) Left Monofilament Today: Sensory intact Right Foot Check (reviewed today): Normal exam (12/06/2018) Right Foot Check Today: Normal exam Right Pedal Pulse (reviewed today): 2 (12/06/2018) Right Pedal Pulse Today: 1 Right Monofilament (reviewed today): Sensory intact (12/06/2018) Right Monofilament Today: Sensory intact Eye Exam (reviewed today): Date: 11/16/2016 (11/16/2016) Depression Screening (reviewed today):PHQ-2 Score: 0 (12/20/2018) Name Value Range Interpretation Code Description Data Kate rce(s) Supporting Document(s) Procedure Social History Code Duration Value Status Description Data Source(s ) Smoking 03/10/2020 12:00:00 AM EST Unknown if ever smoked comp leted Unknown if ever smoked [facility] ([facility]) Smoking 07/30/2019 12:00:00 AM EDT Unknown if ever smoked comp leted Unknown if ever smoked [facility] ([facility]) Smoking 06/20/2019 12:00:00 AM EDT Unknown if ever smoked comp leted Unknown if ever smoked [facility] ([facility]) Smoking 05/28/2019 12:00:00 AM EDT Unknown if ever smoked comp leted Unknown if ever smoked [facility] ([facility]) Smoking 05/22/2019 12:00:00 AM EDT Unknown if ever smoked comp leted Unknown if ever smoked [facility] ([facility]) Smoking 04/14/2019 12:00:00 AM EST Unknown if ever smoked comp leted Unknown if ever smoked [facility] ([facility]) Smoking 02/20/2019 12:00:00 AM EST Unknown if ever smoked comp leted Unknown if ever smoked [facility] ([facility]) Vital Signs ID Date Data Source UNK Name Value Range Interpretation Code Description Data Source(s) Body weight 2932 [oz_av] 2932 [oz_av] ANNIKA ([facility]) Systolic blood pressure 123 mm[Hg] 123 mm[Hg] A THENA ([facility]) Body mass index (BMI) [Ratio] 31 kg/m2 31 kg/ m2 ANNIKA ([facility]) Body height 64.5 [in_i] 64.5 [in_i] ANNIKA ([facility]) Diastolic blood pressure 91 mm[Hg] 91 mm[Hg] ANNIKA ([facility]) Body height 0.00 in Normal (applies to non-numeric resu lts) 0.00 in [facility] ([facility]) Body weight Measured 212.00 lbs Normal (applies to n on-numeric results) 212.00 lbs [facility] ([facility]) Body mass index (BMI) [Ratio] 0.00 kg/m2 No rmal (applies to non-numeric results) 0.00 kg/m2 [facility] ([facility]) Systolic blood pressure 0 mm[Hg] Normal (applies t o non-numeric results) 0 mm[Hg] [facility] ([facility]) Diastolic blood pressure 0 mm[Hg] Normal (applies to non-numeric results) 0 mm[Hg] [facility] ([facility]) Systolic blood pressure 136 mm[Hg] 136 mm[Hg] M EDENT ([facility], [facility]) Diastolic blood pressure 94 mm[Hg] 94 mm[Hg] MEDENT ([facility], [facility]) Heart rate 101 /min 101 /min MEDENT ([facility], [facility]) Respiratory rate 12 /min 12 /min [facility], [facility]) Oxygen saturation in Arterial blood by Pulse oximetry 98 % 98 % MEDENT ([facility], [facility]) Body weight 202.00 [lb_av] 202.00 [lb_av] MEDEN T ([facility], [facility]) Body height 65 [in_i] 65 [in_i] [facility], [facility]) 5'5" Body mass index (BMI) [Ratio] 33.6 kg/m2 33.6 k g/m2 MEDENT ([facility], [facility]) Systolic blood pressure 137 mm[Hg] 137 mm[Hg] M EDENT ([facility], [facility]) Diastolic blood pressure 92 mm[Hg] 92 mm[Hg] MEDENT ([facility], [facility]) Heart rate 80 /min 80 /min MEDENT ([facility], [facility]) Oxygen saturation in Arterial blood by Pulse oximetry 98 % 98 % MEDENT ([facility], [facility]) Body temperature 97.9 [degF] 97.9 [degF] MEDENT ([facility], [facility]) Body weight 202.00 [lb_av] 202.00 [lb_av] MEDEN T ([facility], [facility]) Body height 65 [in_i] 65 [in_i] MEDENT ([facility], [facility]) 5'5" Body mass index (BMI) [Ratio] 33.6 kg/m2 33.6 k g/m2 MEDENT ([facility], [facility]) Body height 0.00 in Normal (applies to non-numeric resu lts) 0.00 in [facility] ([facility]) Body weight Measured 0.00 lbs Normal (applies to n on-numeric results) 0.00 lbs [facility] ([facility]) Body mass index (BMI) [Ratio] 0.00 kg/m2 No rmal (applies to non-numeric results) 0.00 kg/m2 [facility] ([facility]) Systolic blood pressure 0 mm[Hg] Normal (applies t o non-numeric results) 0 mm[Hg] [facility] ([facility]) Diastolic blood pressure 0 mm[Hg] Normal (applies to non-numeric results) 0 mm[Hg] [facility] ([facility]) Systolic blood pressure 118 mm[Hg] 118 mm[Hg] M EDENT ([facility], [facility]) Diastolic blood pressure 86 mm[Hg] 86 mm[Hg] MEDENT ([facility], [facility]) Heart rate 69 /min 69 /min MEDENT ([facility], [facility]) Respiratory rate 17 /min 17 /min [facility] ( [facility], [facility]) Oxygen saturation in Arterial blood by Pulse oximetry 96 % 96 % [facility], [facility]) Body temperature 98.7 [degF] 98.7 [degF] MEDENT ([facility], [facility]) Body weight 213.00 [lb_av] 213.00 [lb_av] MEDEN T ([facility], [facility]) Body height 65 [in_i] 65 [in_i] MEDENT ([facility], [facility]) 5'5" Body mass index (BMI) [Ratio] 35.4 kg/m2 35.4 k g/m2 MEDENT ([facility], [facility]) Systolic blood pressure 117 mm[Hg] 117 mm[Hg] M EDENT ([facility]) Diastolic blood pressure 79 mm[Hg] 79 mm[Hg] MEDENT ([facility]) Body height 65 [in_i] 65 [in_i] MEDENT ([facility]) 5'5" Body weight 215.25 [lb_av] 215.25 [lb_av] MEDEN T ([facility]) Body mass index (BMI) [Ratio] 35.8 kg/m2 35.8 k g/m2 MEDENT ([facility]) Body weight 97.637 kg 97.637 kg MEDENT ([facility]) Body weight 3570.08 [oz_av] 3570.08 [oz_av] ATH ALBER ([facility]) Systolic blood pressure 107 mm[Hg] 107 mm[Hg] A THENA ([facility]) Body height 64.5 [in_i] 64.5 [in_i] ANNIKA ([facility]) Diastolic blood pressure 77 mm[Hg] 77 mm[Hg] ANNIKA ([facility]) Body mass index (BMI) [Ratio] 0.00 kg/m2 No rmal (applies to non-numeric results) 0.00 kg/m2 [facility] ([facility]) Systolic blood pressure 0 mm[Hg] Normal (applies t o non-numeric results) 0 mm[Hg] [facility] ([facility]) Diastolic blood pressure 0 mm[Hg] Normal (applies to non-numeric results) 0 mm[Hg] [facility] ([facility]) Body height 0.00 in Normal (applies to non-numeric resu lts) 0.00 in [facility] ([facility]) Body weight Measured 0.00 lbs Normal (applies to n on-numeric results) 0.00 lbs [facility] ([facility]) Body weight 3440 [oz_av] 3440 [oz_av] ANNIKA ([facility]) Systolic blood pressure 124 mm[Hg] 124 mm[Hg] A THEN ([facility]) Body height 64.5 [in_i] 64.5 [in_i] ANNIKA ([facility]) Diastolic blood pressure 83 mm[Hg] 83 mm[Hg] ANNIKA ([facility]) Systolic blood pressure 144 mm[Hg] 144 mm[Hg] M EDENT ([facility], ) Diastolic blood pressure 92 mm[Hg] 92 mm[Hg] [facility], ) Heart rate 71 /min 71 /min [facility] ([facility], ) Body height 65 [in_i] 65 [in_i] [facility] ([facility], ) 5'5" Body weight 216.00 [lb_av] 216.00 [lb_av] MEDEN T ([facility], ) Body mass index (BMI) [Ratio] 35.9 kg/m2 35.9 k g/m2 [facility], ) Body weight 97.978 kg 97.978 kg [facility] ([facility], ) Systolic blood pressure 159 mm[Hg] 159 mm[Hg] M EDENT ([facility], ) Diastolic blood pressure 103 mm[Hg] 103 mm[Hg] [facility] ([facility], ) Body height 65 [in_i] 65 [in_i] MEDENT ([facility], ) 5'5" Body weight 218.00 [lb_av] 218.00 [lb_av] MEDEN T ([facility], ) Body mass index (BMI) [Ratio] 36.3 kg/m2 36.3 k g/m2 [facility] ([facility], ) Body weight 98.885 kg 98.885 kg [facility] ([facility], ) Body weight 3408 [oz_av] 3408 [oz_av] ANNIKA ([facility]) Systolic blood pressure 124 mm[Hg] 124 mm[Hg] A THENA ([facility]) Body height 64.5 [in_i] 64.5 [in_i] ANNIKA ([facility]) Diastolic blood pressure 86 mm[Hg] 86 mm[Hg] ANNIKA ([facility]) Systolic blood pressure 126 mm[Hg] 126 mm[Hg] M EDENT ([facility], [facility]) Diastolic blood pressure 84 mm[Hg] 84 mm[Hg] MEDENT ([facility], [facility]) Heart rate 103 /min 103 /min MED[facility] ([facility], [facility]) Oxygen saturation in Arterial blood by Pulse oximetry 97 % 97 % MED[facility] ([facility], [facility]) Body temperature 97.6 [degF] 97.6 [degF] MEDENT ([facility], [facility]) Body weight 214.00 [lb_av] 214.00 [lb_av] MEDEN T ([facility], [facility]) Body height 65 [in_i] 65 [in_i] MEDENT ([facility], [facility]) 5'5" Body mass index (BMI) [Ratio] 35.6 kg/m2 35.6 k g/m2 MED[facility] ([facility], [facility]) Systolic blood pressure 123 mm[Hg] 123 mm[Hg] M EDENT ([facility], [facility]) Diastolic blood pressure 77 mm[Hg] 77 mm[Hg] MED[facility] ([facility], [facility]) Heart rate 103 /min 103 /min MED[facility] ([facility], [facility]) Respiratory rate 12 /min 12 /min MED[facility] ( [facility], [facility]) Oxygen saturation in Arterial blood by Pulse oximetry 96 % 96 % MEDENT ([facility], [facility]) Body temperature 98.8 [degF] 98.8 [degF] MEDENT ([facility], [facility]) Body weight 214.00 [lb_av] 214.00 [lb_av] MEDEN T ([facility], [facility]) Body height 65 [in_i] 65 [in_i] MEDENT ([facility], [facility]) 5'5" Body mass index (BMI) [Ratio] 35.6 kg/m2 35.6 k g/m2 MED[facility] ([facility], [facility]) Body weight 3424 [oz_av] 3424 [oz_av] ANNIKA ([facility]) Systolic blood pressure 108 mm[Hg] 108 mm[Hg] Sita REICH ([facility]) Body height 64.5 [in_i] 64.5 [in_i] ANNIKA ([facility]) Diastolic blood pressure 75 mm[Hg] 75 mm[Hg] ANNIKA ([facility]) Patient Treatment Plan of Care Planned Activity Planned Date Details Description Data Source (s) valacyclovir 1000 MG Oral Tablet ANNIKA ([facility]) 0.5 ML dulaglutide 1.5 MG/ML [facility]In[facility] Hydrochlorothiazide 25 MG / Triamterene 37.5 MG Oral Capsule [facility] Triamcinolone Acetonide 1 MG/ML Topical Cream [facility] tizanidine 4 MG Oral Tablet [facility] terconazole 4 MG/ML Vaginal Cream [facility] Prednisone 10 MG Oral Tablet ANNIKA ([facility]) prednisolone acetate 10 MG/ML Ophthalmic Suspension ANNIKA ([facility]) OneTouch Ultra2 Meter USE DIRECTED [facility]) OneTouch Ultra Blue Test Strip TEST FOUR TIMES A DAY [facility]) OneTouch Delica Plus Lancet 33 gauge TEST FOUR TIMES A DAY [facility]) Metformin hydrochloride 1000 MG Oral Tablet [facility]) Ketorolac Tromethamine 10 MG Oral Tablet [facility]) Acetaminophen 325 MG / Hydrocodone Bitartrate 5 MG Oral Tablet ANNIKA ([facility]) chlorhexidine gluconate 40 MG/ML Medicated Liquid Soap [Hibiclens] [facility]) Fluconazole 150 MG Oral Tablet [facility]) Fluconazole 100 MG Oral Tablet [facility]) Fenofibrate 160 MG Oral Tablet [facility]) Deblitane 0.35 mg tablet TAKE ONE TABLET BY MOUTH EVERY DAY [facility]) Cyclopentolate hydrochloride 10 MG/ML Ophthalmic Solution [facility]) Cyclobenzaprine hydrochloride 10 MG Oral Tablet ANNIKA ([facility]) Cholecalciferol 2000 UNT Oral Tablet ANNIKA ([facility]) Cephalexin 500 MG Oral Capsule ANNIKA ([facility]) Cefuroxime 500 MG Oral Tablet ANNIKA ([facility]) buspirone hydrochloride 15 MG Oral Tablet ANNIKA ([facility]) Amoxicillin 875 MG / Clavulanate 125 MG Oral Tablet [Augmentin] ANNIKA ([facility]) atorvastatin 10 MG Oral Tablet ANNIKA ([facility]) Atenolol 100 MG Oral Tablet ANNIKA ([facility]) aripiprazole 10 MG Oral Tablet ANNIKA ([facility]) Amoxicillin 875 MG Oral Tablet ANNIKA ([facility]) Amoxicillin 500 MG Oral Capsule ANNIKA ([facility])
[2020-03-29] MEDS ORDERED: BUSP30TA (17:52)
[2020-03-29] MEDS ORDERED: TRAZ-252 (17:52)
[2020-03-29] MEDS ORDERED: LEVO150T7 (17:52)
[2020-03-29] MEDS ORDERED: PARO40TA2 (17:52)
[2020-03-29] MEDS ORDERED: LABETALOL 100MG/20ML VIAL IV STA (18:36)
--- NOTE | 2020-03-29 19:04 | REPVR ---
PROCEDURE INFORMATION: Exam: CT Head Without Contrast Exam date and time: 03/29/2020 6:58 PM Age: 49 years old Clinical indication: Pain; Headache; Additional info: CVA TECHNIQUE: Imaging protocol: Computed tomography of the head without contrast. Radiation optimization: All CT scans at this facility use at least one of these dose optimization techniques: automated exposure control; mA and/or kV adjustment per patient size (includes targeted exams where dose is matched to clinical indication); or iterative reconstruction. Other technique: STROKE PROTOCOL was implemented. COMPARISON: CT Head without contrast 03/01/2020 12:52 AM FINDINGS: Brain: There is mild volume loss.There is no evidence of infarct, bolton-white matter differentiation is preserved. There is no hemorrhage or extra-axial collection. There is no mass. No evidence of subarachnoid hemorrhage. No evidence of cerebral edema. Cerebral ventricles: No ventriculomegaly. Bones/joints: Unremarkable. No acute fracture. Paranasal sinuses: Visualized sinuses are unremarkable. No fluid levels. Mastoid air cells: Visualized mastoid air cells are well aerated. Soft tissues: Unremarkable. IMPRESSION: No intracranial lesion or injury and no change from prior scan. ASSESSMENT: ASPECTS ([place] Stroke Program Early CT Score) is 10. Electronically signed by: Nabil Vora On 03/29/2020 19:04:26 PM
--- OUTSIDE RECORDS SUMMARY | 2020-03-29 19:31 | CCD ---
Author Author [facility] Organization [facility] Address Unknown Phone Unavailable Care Team Providers Care Financial Foundations Associate Name Role Phone Kayli Rojas MD Unavailable [...] Yoana HERRERA MD Unavailable Unavailable BARERASTOUGA, Yoana EHRRERA MD Unavailable Unavailable BARAYUGA, Yoana HERRERA MD [...] LYNDA, ELSA PA Unavailable Unavailable Liz, Dariana EPOXY FABRICATION SUPERVISOR Unavailable Unavailable Liz, Dariana EPOXY FABRICATION SUPERVISOR Unavailable Unavailable Liz, Dariana EPOXY FABRICATION SUPERVISOR Unavailable Unavailable Liz, Dariana EPOXY FABRICATION SUPERVISOR Unavailable Unavailable Liz, Dariana EPOXY FABRICATION SUPERVISOR Unavailable Unavailable Liz, Dariana EPOXY FABRICATION SUPERVISOR Unavailable Unavailable Liz, Dariana EPOXY FABRICATION SUPERVISOR Unavailable Unavailable Liz, Dariana EPOXY FABRICATION SUPERVISOR Unavailable Unavailable Liz, Dariana EPOXY FABRICATION SUPERVISOR Unavailable Unavailable Liz, Dariana EPOXY FABRICATION SUPERVISOR Unavailable Unavailable Liz, Dariana EPOXY FABRICATION SUPERVISOR Unavailable Unavailable LETTIERE, A JESSICA PA Unavailable [...] MD Unavailable Unavailable Stacy Kelly Unavailable Unavailable Stayc Kelly Unavailable Unavailable Stacy, Kelly Unavailable Unavailable [...] Rani MEHTA MD Unavailable Unavailable MACQUEEN, DIPTI EPOXY FABRICATION SUPERVISOR Unavailable Unavailable MACQUEEN, DIPTI EPOXY FABRICATION SUPERVISOR Unavailable Unavailable MACQUEEN, DIPTI EPOXY FABRICATION SUPERVISOR Unavailable Unavailable MACQUEEN, DIPTI EPOXY FABRICATION SUPERVISOR Unavailable Unavailable MACQUEEN, DIPTI EPOXY FABRICATION SUPERVISOR Unavailable Unavailable MACQUEEN, DIPTI EPOXY FABRICATION SUPERVISOR Unavailable Unavailable MACQUEEN, DIPTI EPOXY FABRICATION SUPERVISOR Unavailable Unavailable MACQUEEN, DIPTI EPOXY FABRICATION SUPERVISOR Unavailable Unavailable MACQUEEN, DIPTI EPOXY FABRICATION SUPERVISOR Unavailable Unavailable MACQUEEN, DIPTI EPOXY FABRICATION SUPERVISOR Unavailable Unavailable MACQUEEN, DIPTI EPOXY FABRICATION SUPERVISOR Unavailable Unavailable Lino, Syl REQUISITION APPROVER REQUISITION APPROVER Unavailable Unavailable Lino, A Syl REQUISITION APPROVER Unavailable Unavailable Lino, A Syl REQUISITION APPROVER Unavailable Unavailable Lino, A Syl REQUISITION APPROVER Unavailable Unavailable Lino, A Syl REQUISITION APPROVER Unavailable Unavailable Lino, A Syl REQUISITION APPROVER Unavailable Unavailable Lino, A Syl REQUISITION APPROVER Unavailable Unavailable Parnell, A Syl REQUISITION APPROVER Unavailable Unavailable Parnell, A Syl REQUISITION APPROVER Unavailable Unavailable Lino, A Syl REQUISITION APPROVER Unavailable Unavailable Parnell, A Syl REQUISITION APPROVER Unavailable Unavailable Parnell, A Syl REQUISITION APPROVER Unavailable Unavailable Parnell, A Syl REQUISITION APPROVER Unavailable Unavailable Parnell, A Syl REQUISITION APPROVER Unavailable Unavailable Parnell, A Syl REQUISITION APPROVER Unavailable Unavailable Lino, A Syl REQUISITION APPROVER Unavailable Unavailable Lino, A Syl REQUISITION APPROVER Unavailable Unavailable Lino, A Syl REQUISITION APPROVER Unavailable Unavailable Parnell, A Syl REQUISITION APPROVER Unavailable Unavailable Parnell, A Syl REQUISITION APPROVER Unavailable Unavailable Parnell, A Syl REQUISITION APPROVER Unavailable Unavailable Parnell, A Syl REQUISITION APPROVER Unavailable Unavailable Parnell, A Syl REQUISITION APPROVER Unavailable Unavailable Lino, A Syl REQUISITION APPROVER Unavailable Unavailable Lino, A Syl REQUISITION APPROVER Unavailable Unavailable Lino, A Syl REQUISITION APPROVER Unavailable Unavailable Lino, A Syl REQUISITION APPROVER Unavailable Unavailable Lino, A Syl REQUISITION APPROVER Unavailable Unavailable Lino, A Syl REQUISITION APPROVER Unavailable Unavailable PierreLeslyt Unavailable Re-disclosure Warning The [...] is protected by Article 27-F of the [facility] Public Health law. If you continue you may have access to information: Regarding HIV / AIDS; Provided by facilities licensed or operated by the [facility] Office of Mental Health; or Provided by the [facility] Office for People With Developmental Disabilities. If such information is present, then the following [facility] mandated warning applies: This information has been [...] law may result in a fine or retirement sentence or both. A general authorization for the release of medical or other information is NOT sufficient authorization for further disc losure. Allergies and Adverse Reactions Type Description Substance Reaction Status Data Source(s ) Allergy to substance Allergy to substance Allergy to substance ANNIKA ([facility]) Family History Family Member Name Family Member Gender Family Member Status Date o f Status Description Data Source(s) Unknown Unknown Problem [facility] ([facility]) Unknown Unknown Problem [facility] Unknown Male Problem MEDENT ([facility]) Encounters Encounter Providers Location Date Indications Data Source(s ) Williams Rojas MD: [address] [place] [phone], Ph. Attender: Williams Rojas MD [facility] Medical 03/11/2020 12:00:00 AM EST ANNIKA ([facility]) Outpatient Attender: DIPTI GARCAI NP [facility] 03/10/2020 11:30:00 AM EST - 03/10/2020 11:30:00 AM EST [facility] ([facility]) Attender: DIPTI GARCIA NP 03/10/2020 12:00:00 AM EST [facility] ([facility]) Outpatient Attender: Milagros Sosa Prim jg 12/04/2019 05:20:00 PM EDT MEDENT ([facility]) Outpatient Attender: NIKI PRINCE FP 11/26/2019 12:59:00 P M EDT [facility] Outpatient Attender: JESSICA Sosa Prim jg 11/11/2019 10:15:00 AM EDT MEDENT ([facility]) Outpatient Attender: Syl PRINCE FP 10/28/2019 09:3 9:01 AM EDT [facility] Outpatient Attender: Syl PRINCE FP 10/27/2019 12:1 1:02 AM EDT [facility] Outpatient Attender: Syl MEDINA 10/01/2019 09:4 0:01 AM EDT [facility] Outpatient Attender: NIKI MEDINA 09/30/2019 04:33:00 P M EDT [facility] Outpatient Attender: Syl PRINCE FP 08/22/2019 10:2 9:01 AM EDT [facility] Outpatient Attender: Syl MEDINA 08/22/2019 10:0 8:01 AM EDT [facility] Outpatient Attender: Kelly Kumar MD 08/07/2019 12:00:[address] [facility] Outpatient Attender: DIPTI GARCIA NP [facility] Gigi андрей 07/30/2019 03:00:00 AM EDT - 07/30/2019 03:00:00 AM EDT [facility] ([facility]) Attender: DIPTI GARCIA NP 07/30/2019 12:00:00 AM EDT [facility] ([facility]) Outpatient Attender: NIKI PRINCE FP 07/29/2019 02:45:00 P M EDT [facility] Outpatient Attender: Sylra Lino PRINCE 07/28/2019 06:2 0:01 PM EDT [facility] Outpatient Attender: NIKI PRINCE 07/24/2019 07:48:00 A M EDT [facility] Outpatient Attender: NIKI Lino NIKI 07/15/2019 01:34:01 P M EDT [facility] Outpatient Attender: JESSICA gregorio 07/15/2019 12:30:00 PM EDT MEDENT ([facility]) Outpatient Attender: TYSON SPICER MD 07/04/2019 02:37:03 P M EDT [facility] Outpatient Attender: TYSON SPICER MD 07/04/2019 02:30:10 P M EDT [facility] Outpatient Attender: TYSON SPICER MD 07/04/2019 02:30:08 P M EDT [facility] Outpatient Attender: TYSON SPICER MD 07/04/2019 01:58:00 P M EDT [facility] [id number]"Psychotherapy Attender: Jolene Pierre [facility] 06/20/2019 11:00:00 AM EDT - 06/20/2019 11:00:00 AM EDT [facility] ([facility]) Attender: Jolene Pierre 06/20/2019 12:00:00 AM EDT [facility] ([facility]) Outpatient Attender: DIPTI GARCIA NP [facility] 05/28/2019 04:30:00 AM EDT - 05/28/2019 04:30:00 AM EDT [facility] ([facility]) Attender: DIPTI GARCIA NP 05/28/2019 12:00:00 AM EDT [facility] ([facility]) Outpatient Attender: DIPTI GARCIA NP [facility] 05/22/2019 04:00:00 AM EDT - 05/22/2019 04:00:00 AM EDT [facility] ([facility]) Attender: DIPTI GARCIA NP 05/22/2019 12:00:00 AM EDT [facility] ([facility]) Outpatient Attender: TYSON MEDINA 05/09/2019 11:53:03 A M [facility] Outpatient Attender: TYSON SPICER MD 05/09/2019 11:53:01 A M [facility] Outpatient Attender: TYSON MEDINA 05/08/2019 11:22:47 A M [facility] Outpatient Attender: Francheska Mast 05/06/2019 12:00:[address] [facility] Outpatient Attender: TYSON SPICER MD FP 05/01/2019 04:07:01 P [facility] Outpatient Attender: TYSON SPICER MD 04/29/2019 09:12:01 A [facility] Outpatient Attender: TYSON SPICER MD 04/29/2019 08:18:00 A [facility] Brief Individual Psychotherapy - 30 min Attender: Jennifer Perales [facility] 04/14/2019 10:00:00 AM EST - 04/14/2019 10:00:00 AM EST [facility] ([facility] Attender: Jennifer Mendez 04/14/2019 12:00:00 AM EST [facility] ([facility]) Outpatient Attender: TYSON SPICER MD 04/11/2019 12:50:01 P [facility] Outpatient Attender: TYSON SPICER MD 04/11/2019 11:13:00 A [facility] Outpatient Attender: TYSON SPICER MD 04/11/2019 09:17:34 A [facility] Outpatient Attender: TYSON SPICER MD 04/09/2019 01:51:00 P [facility] Outpatient Attender: TYSON SPICER MD FP 04/09/2019 01:48:01 P [facility] Outpatient Attender: SHARON Hong/Josef/Adalberto/ Schuyler 04/08/2019 07:45:00 AM EST MED[facility] ([facility]) Outpatient Attender: TYSON SPICER MD FP 04/04/2019 11:29:01 A [facility] Outpatient Attender: TYSON SPICER MD FP 03/31/2019 04:25:00 P [facility] Outpatient Attender: SHARON Hong/Josef/Adalberto/ Reinfeliberto 03/25/2019 12:30:00 PM EST MED[facility] ([facility]) Outpatient Attender: TYSON SPICER MD FP 03/25/2019 12:28:01 P [facility] Outpatient Attender: TYSON SPICER MD FP 03/24/2019 10:03:02 A [facility] Outpatient Attender: TYSON SPICER MD FP 03/19/2019 01:20:01 P [facility] Outpatient Attender: SHARON Medina/Adalberto/ Reinfeliberto 03/13/2019 01:45:00 PM EST MED[facility] ([facility]) Outpatient Attender: TYSON SPICER MD FP 03/11/2019 03:38:01 P [facility] Outpatient Attender: TYSON SPICER MD FP 03/11/2019 12:07:03 P [facility] Outpatient Attender: TYSON SPICER MD FP 03/10/2019 10:57:01 P [facility] Outpatient Attender: TYSON SPICER MD FP 03/10/2019 01:57:03 P [facility] Outpatient Attender: TYSON SPICER MD FP 03/07/2019 11:00:01 A [facility] Outpatient Attender: TYSON SPICER MD FP 03/06/2019 04:27:59 P [facility] Outpatient Attender: TYSON SPICER MD FP 03/05/2019 03:25:00 P [facility] Outpatient Attender: TYSON SPICER MD FP 03/05/2019 12:03:00 P [facility] Outpatient Attender: TYSON SPICER MD FP 03/05/2019 10:09:00 A [facility] Outpatient Attender: TYSON SPICER MD FP 03/04/2019 03:14:00 P [facility] Outpatient Attender: TYSON SPICER MD FP 03/04/2019 03:13:01 P [facility] Outpatient Attender: TYSON SPICER MD 03/04/2019 03:12:00 P [facility] Outpatient Attender: TYSON SPICER MD 03/04/2019 03:07:01 P [facility] Outpatient Attender: TYSON SPICER MD 03/04/2019 02:04:02 P [facility] Outpatient Attender: TYSON SPICER MD 03/04/2019 11:22:01 A [facility] Outpatient Attender: TYSON SPICER MD 03/04/2019 10:04:00 A [facility] Outpatient Attender: TYSON SPICER MD 03/03/2019 04:33:00 P [facility] Outpatient Attender: TYSON SPICER MD 02/28/2019 12:34:01 P [facility] Outpatient Attender: TYSON SPICER MD 02/24/2019 09:01:04 P [facility] Outpatient Attender: ELSA Lamb 02/20/2019 04:30:00 PM EST MED[facility] ([facility]) Outpatient Attender: DIPTI GARCIA NP [facility] 02/20/2019 11:00:00 AM EST - 02/20/2019 11:00:00 AM EST [facility] ([facility]) Attender: DIPTI GARCIA NP 02/20/2019 12:00:00 AM EST [facility] ([facility]) Outpatient Attender: Dariana fragoso 02/13/2019 12:00:00 PM EST [facility] ([facility]) Outpatient Attender: TYSON SPICER MD 02/10/2019 06:54:01 P [facility] Outpatient Attender: TYSON SPICER MD 02/10/2019 06:50:03 P [facility] Outpatient Attender: TYSON SPICER MD 02/07/2019 09:00:01 A [facility] Outpatient Attender: TYSON SPICER MD 02/06/2019 09:07:01 A [facility] Outpatient Attender: TYSON SPICER MD 02/05/2019 03:49:00 P [facility] Outpatient Attender: TYSON SPICER MD 02/05/2019 03:48:00 P M [facility] Outpatient Attender: TYSON SPICER MD 02/04/2019 04:46:01 P M [facility] Outpatient Attender: Francheska Mast 01/30/2019 12:00:00 AM [facility] Functional Status Medications Medication Brand Name Start [...] AM EST 20 mg by mouth completed [id number] Latuda by mouth [id number] 01/14/2020 04/13/2020 twice a day 30 20 mg tablet [id number] Dipti Garcia [id number] Psychiatric/Mental Health [facility] ([facility]) Paroxetine Hydrochloride 40 MG Oral Tablet PAROXETINE HCL 01/14/2020 12:00:00 AM EST tablet 30 TAKE 1 TABLET BY MOUTH ONCE A DAY TAKE 1 TABLET BY MOUTH ONCE A DAY SOLD: 01/14/2020 [facility] Amoxicillin 875 MG Oral Tablet Amoxicillin 11/11/2019 12:00:00 AM EDT completed MEDENT ([facility]) 875 mg 11/11/2019 12:00:00 AM EDT tablet [...] 07/15/2019 12:00:00 AM EDT ORAL active MEDENT ([facility]) Triamcinolone Acetonide 1 MG/ML Topical Cream Triamcinolone Acetonide 07/15/2019 12:00:00 AM EDT active MEDENT ([facility]) Acyclovir 0.05 MG/MG Topical Ointment Acyclovir 07/15/2019 12:00:00 AM EDT completed MEDENT ([facility]) 1 gram 07/15/2019 12:00:00 AM EDT tablet [...] 07/08/2019 1 2:00:00 AM EDT active MEDENT ([facility], ) 100 mg 07/08/2019 12:00:00 AM EDT [...] 2019 12:00:00 AM EDT 30 mg completed [id number] buspirone 05/28/2019 twice a day 30 mg tablet 03725 [id number] Dipti Garcia [id number] Psychiatric[facility]Mental Health [facility] ([facility]) paroxetine HCl paroxetine HCl 05/28/2019 12:00:00 AM EDT 40 mg by mouth completed [id number] paroxetine HCl by mouth [id number] 05/28/2019 once a day 30 40 mg tablet 81897 [id number] Dipti Garcia [id number] Psychiatric/Mental Health [facility] ([facility]) Trazodone Hydrochloride 50 MG Oral Tablet trazodone 2019 12:00:00 AM EDT 50 mg by mouth completed [id number] trazodone by mouth [id number] 05/28/2019 08/26/2019 every night 30 50 mg tablet 72213 [id number] Maria A Garcia [id number] Psych[facility]Mental [facility] ([facility]) aripiprazole 10 MG Oral Tablet [Abilify] Abilify 05/28/2019 12 :00:00 AM EDT 10 mg by mouth completed [id number] Abilify by mouth [id number] 05/28/2019 08/26/2019 once a day 30 10 mg tablet 83932 [id number] Jose Rafael Ng [id number] Psych[facility] ([facility]) buspirone hydrochloride 15 MG Oral Tablet BUSPIRONE [...] BY MOUTH ONCE DAILY SOLD: 04/11/2019 [facility] buspirone hydrochloride 15 MG Oral Tablet BUSPIRONE [...] 02/13/2019 12:00:00 AM EST ORAL completed MEDENT ([facility]) 150 mg 02/08/2019 12:00:00 AM EST tablet [...] 1 USE DIRECTED USE DIRECTED SOLD: 02/08/2019 [facility] 1.5 mg/0.5 mL 02/08/2019 [...] fluconazole 100 MG Ora l Tablet ANNIKA ([facility]) aripiprazole 10 MG Oral Tablet aripipraz ole 10 mg tablet TAKE ONE TABLET BY MOUTH EVERY DAY aripiprazole 10 mg tablet TAKE ONE TABLET BY MOUTH EVERY DAY completed aripiprazole 1 0 MG Oral Tablet [place] ([facility]) chlorhexidine gluconate 40 MG/ML Medicat ed Liquid Soap [Hibiclens] Hibiclens 4 % topical liquid WASH INTO AFFECTED AREA TWO TIMES A DAY FOR 10 DAYS Hibiclens 4 % topical liquid WASH INTO AFFECTED AREA TWO TIMES A DAY FOR 10 DAYS completed chlorhexidine gl uconate 40 MG/ML Medicated Liquid Soap [Hibiclens] ANNIKA ([facility]) OneTouch Ultra Blue Test Strip TEST FOUR TIMES A DAY [id number] completed OneTouch Ultra Blue Test Strip A ALLYSSA ([facility]) Amoxicillin 875 MG / Clavulanate 125 MG Oral Tablet [Augmentin] Augmentin 875 mg-125 mg tablet Take 1 tablet every 12 hours by oral route. Augmentin 875 mg- 125 mg tablet Take 1 tablet every 12 hours by oral route. 1 completed amoxicillin 875 MG / clavulanate 125 MG Oral Tablet [Augmentin] ANNIKA ([facility]) atorvastatin 10 MG Oral Tablet atorvasta tin 10 mg tablet TAKE 1 TABLET BY MOUTH EVERY DAY AT BEDTIME atorvastatin 10 mg tablet TAKE 1 TABLET BY MOUTH EVERY DAY AT BEDTIME completed atorvastati n 10 MG Oral Tablet [place] ([facility]) Fenofibrate 160 MG Oral Tablet fenofibra te 160 mg tablet TAKE ONE TABLET BY MOUTH DAILY fenofibrate 160 mg tablet TAKE ONE TABLET BY MOUTH DAILY completed fenofibrate 160 MG Oral Tabl et ANNIKA ([facility]) tizanidine 4 MG Oral Tablet tizanidine 4 mg tablet TAKE ONE TABLET BY MOUTH EVERY 8 HOURS NEEDED tizanidine 4 mg tablet TAKE ONE TABLET B Y MOUTH EVERY 8 HOURS NEEDED completed tizani dine 4 MG Oral Tablet ANNIKA ([facility]) terconazole 4 MG/ML Vaginal Cream tercon azole 0.4 % vaginal cream INSERT ONE APPLICATORFUL VAGINALLY AT BEDTIME FOR 7 NIGHTS terconazole 0.4 % vaginal cream INSERT ONE APPLICATORFUL VAGINALLY AT BEDTIME FOR 7 NIGHTS completed terconazole 4 MG/ML Vaginal Crea m ANNIKA ([facility]) buspirone hydrochloride 15 MG Oral Table t buspirone 15 mg tablet TAKE 1 TABLET BY MOUTH TWICE A DAY buspirone 15 mg tablet TAKE 1 TABLET BY MOUTH TWICE A DAY completed buspirone hydr ochloride 15 MG Oral Tablet [place] ([facility]) OneTouch Delica Plus Lancet 33 gauge TEST FOUR TIMES A DAY [id number] completed OneTouch Delica Plus Lancet 33 g auge ANNIKA ([facility]) Cholecalciferol 2000 UNT Oral Tablet cho lecalciferol (vitamin D3) 50 mcg (2,000 unit) tablet TAKE ONE TABLET BY MOUTH DAILY WITH DINNER cholecalciferol (vitamin D3) 50 mcg (2,000 unit) tablet TAKE ONE TABLET BY MOUTH DAILY WITH DINNER completed cholecalciferol 0.05 M G Oral Tablet ANNIKA ([facility]) Hydrochlorothiazide 25 MG / Triamterene 37.5 MG Oral Capsule triamterene 37.5 mg-hydrochlorothiazide 25 mg capsule TAKE ONE CAPSULE BY MOUTH DAILY triamterene 37.5 mg-hydrochlorothiazide 25 mg capsule TAKE ONE CAPSULE BY MOUTH DAILY completed hydrochlor othiazide 25 MG / triamterene 37.5 MG Oral Capsule ANNIKA ([facility]) Amoxicillin 500 MG Oral Capsule amoxicil jose rafael 500 mg capsule TAKE ONE CAPSULE BY MOUTH THREE TIMES A DAY FOR 7 DAYS amoxicillin 500 mg capsule TAKE ONE CAPS ULE BY MOUTH THREE TIMES A DAY FOR 7 DAYS completed amoxicillin 500 MG Oral Capsule [place] ([facility]) Deblitane 0.35 mg tablet TAKE ONE TABLET BY MOUTH EVERY DAY [id number] completed Deblitane 0.35 mg tablet [place] ([facility]) Ketorolac Tromethamine 10 MG Oral Tablet ketorolac 10 mg tablet TAKE ONE TABLET BY MOUTH EVERY 6 HOURS FOR 5 DAYS ketorolac 10 mg tablet TAKE ONE TABLET B Y MOUTH EVERY 6 HOURS FOR 5 DAYS complet ed ketorolac tromethamine 10 MG Oral Tablet ANNIKA ([facility]) Amoxicillin 875 MG Oral Tablet amoxicill in 875 mg tablet TAKE ONE TABLET BY MOUTH EVERY 12 HOURS FOR 10 DAYS amoxicillin 875 mg tablet TAKE ONE TABLE T BY MOUTH EVERY 12 HOURS FOR 10 DAYS compl eted amoxicillin 875 MG Oral Tablet ANNIKA ([facility]) Cyclobenzaprine hydrochloride 10 MG Oral Tablet cyclobenzaprine 10 mg tablet TAKE ONE TABLET BY MOUTH THREE TIMES A DAY FOR 7 DAYS cyclobenzaprine 10 mg tablet TAKE ONE TABLET BY MOUTH THREE TIMES A DAY FOR 7 DAYS completed cyclobenzaprine hydrochloride 10 MG Oral Tablet [place] ([facility]) OneTouch Ultra2 Meter USE DIRECTED [id number] completed OneTouch Ultra2 Meter [place] ([facility]) Cefuroxime 500 MG Oral Tablet cefuroxime axetil 500 mg tablet TAKE 1 TABLET BY MOUTH TWO TIMES A DAY cefuroxime axetil 500 mg tablet TAKE 1 T ABLET BY MOUTH TWO TIMES A DAY completed cefuroxim e 500 MG Oral Tablet [facility]NIKA ([facility]) Metformin hydrochloride 1000 MG Oral Tab let metformin 1,000 mg tablet TAKE ONE TABLET BY MOUTH TWICE A DAY metformin 1,000 mg tablet TAKE ONE TABLE T BY MOUTH TWICE A DAY completed me tformin hydrochloride 1000 MG Oral Tablet ANNIKA ([facility]) valacyclovir 1000 MG Oral Tablet valacyc lovir 1 gram tablet TAKE ONE TABLET BY MOUTH TWO TIMES A DAY FOR 3 DAYS valacyclovir 1 gram tablet TAKE ONE TABL ET BY MOUTH TWO TIMES A DAY FOR 3 DAYS compl eted valacyclovir 1000 MG Oral Tablet ANNIKA ([facility]) 0.5 ML dulaglutide 1.5 MG/ML Auto-Inject or [Trulicity] Trulicity 0.75 mg/0.5 mL subcutaneous pen injector INJECT 0.75MG UNDER THE SKIN ONCE A WEEK Trulicity 0.75 mg/0.5 mL subcutaneous pen injector INJECT 0.75MG UNDER THE SKIN ONCE A WEEK completed 0.5 ML dulaglutide 1.5 MG/ML Auto-Injector [Trulicity] ANNIKA ([facility]) Prednisone 10 MG Oral Tablet prednisone 10 mg tablet TAKE 2 TABLETS BY MOUTH ONCE A DAY prednisone 10 mg tablet TAKE 2 TABLETS BY MOUTH ONCE A DAY completed prednisone 10 MG Oral Tablet ANNIKA ([facility]) Cyclopentolate hydrochloride 10 MG/ML Op hthalmic Solution cyclopentolate 1 % eye drops INSTILL 1 DROP INTO LEFT EYE TWO TIMES A DAY DIRECTED cyclopentolate 1 % eye drops INSTILL 1 DROP INTO LEFT EYE TWO TIMES A DAY DIRECTED completed cyclopentolate hydrochloride 10 MG/ML Ophthalmic Solution ANNIKA ([facility]) prednisolone acetate 10 MG/ML Ophthalmic Suspension prednisolone acetate 1 % eye drops,suspension INSTILL 1 DROP INTO THE LEFT EYE DIRECTED EVERY HOUR prednisolone acetate 1 % eye drops,suspension INSTILL 1 DROP INTO THE LEFT EYE DIRECTED EVERY HOUR completed prednisolone acetate 10 MG/ML Ophthalmic Suspension ANNIKA ([facility]) Acetaminophen 325 MG / [...] hydrocodone bitartrate 5 MG Oral Tablet ANNIKA ([facility]) Fluconazole 150 MG Oral Tablet fluconazo le 150 mg tablet TAKE 1 TABLET BY MOUTH FOR 1 DOSE THEN 1 TABLET IN 3 DAYS fluconazole 150 mg tablet TAKE 1 TABLET BY MOUTH FOR 1 DOSE THEN 1 TABLET IN 3 DAYS completed fluconazole 150 MG Oral Tablet ANNIKA ([facility]) Triamcinolone Acetonide 1 MG/ML Topical Cream triamcinolone acetonide 0.1 % topical cream APPLY TO HANDS TWO TIMES A DAY FOR 14 DAYS AVOID CREAM TO FACE triamcinolone acetonide 0.1 % topical cream APPLY TO HANDS TWO TIMES A DAY FOR 14 DAYS AVOID CREAM TO FACE completed triamcinolone acetonide 1 MG/ML Topical Cream ANNIKA ([facility]) Atenolol 100 MG Oral Tablet atenolol 100 mg tablet TAKE ONE TABLET BY MOUTH DAILY atenolol 100 mg tablet TAKE ONE TABLET BY MOUTH DAILY completed atenolol 100 MG Oral Tablet ATHE NA ([facility]) Cephalexin 500 MG Oral Capsule cephalexi n 500 mg capsule TAKE ONE CAPSULE BY MOUTH TWICE A DAY DIRECTED FOR 10 DAYS cephalexin 500 mg capsule TAKE ONE CAPSULE BY MOUTH TWICE A DAY DIRECTED FOR 10 DAYS completed cephalexin 500 MG Oral Capsule ANNIKA ([facility]) Insurance Providers Payer name Policy type / Coverage type Policy ID Covered libertarian ID Covered libertarian's relationship to goldberg Policy Goldberg Plan Information [facility] [id number] SP [id number] Medicaid S [id number] S [id number] MEDICAID P [id number] S [id number] Managed Care - [employer] P [id number] S [id number] Medicaid S [id number] S [id number] Managed Care - [employer] P [id number] S [id number] [facility] Community Plan Commercial Self Managed Care - [employer] P [id number] S [id number] [facility] Comm Plan Medicaid F [id number] SELF [id number] [facility] MEDICAID [id number] Cynthia [id number] Medicaid S [id number] S [id number] Managed Care - [employer] P [id number] S [id number] [facility] I [id number] Self [id number] [facility] [id number] SP [id number] Medicaid S [id number] S [id number] Managed Care - [employer] P [id number] S [id number] UNITED [employer]CARE(MCAID) O [id number] S [id number] MEDICAID [id number] SP [id number] ANSI-Medicaid [id number] ANSI-Medicaid [id number] ANSI-Medicaid [id number] ANSI-Medicaid [id number] ANSI-Medicaid [id number] ANSI-Medicaid [id number] Medicaid S [id number] S [id number] Managed Care [facility] P [id number] S [id number] [facility] Health Maintenance Organization (HMO) [id number] Self [id number] [facility] Health Maintenance Organization (HMO) [id number] Self [id number] [facility] Health Maintenance Organization (HMO) [id number] Self [id number] [facility] Health Maintenance Organization (HMO) [id number] Self [id number] [facility] Health Maintenance Organization (HMO) [id number] Self [id number] Managed Critical access hospital P [id number] S [id number] MEDICAID M [id number] Self [id number] [facility] I [id number] Self [id number] Medicaid S [id number] S [id number] [facility] [id number] SP [id number] Managed Care - [facility] Community Plan P [id number] S [id number] SELF PAY ONLY [id number] SP [id number] Medicaid S [id number] S [id number] Managed Care [facility] Community Plan P [id number] S [id number] Problems, Conditions, and Diagnoses Code Display Name Description Problem Type Effective Dates Data Source(s) [id number] Nausea Nausea Problem 03/11/2020 12:00:00 AM ES T ANNIKA ([facility]) [id number] Type 2 diabetes mellitus Type 2 Diabetes Mellitus Prob carrie 03/11/2020 12:00:00 AM EST ANNIKA ([facility]) F31.9 Bipolar disorder, unspecified Bipolar I Disorder, Current or most recent episode unspecified Condition 03/10/2020 12:00:00 AM EST [facility] ([facility]) F41.9 Anxiety disorder, unspecified Unspecified Anxiety Diso rder Condition 03/10/2020 12:00:00 AM EST [facility] ([facility]) [id number] Abnormal cytology findings Abnormal Cytology Findings Problem 12/11/2019 05:29:00 PM EDT ANNIKA ([facility]) [id number] Asthma Asthma Problem 12/11/2019 05:29:00 PM ED T ANNIKA ([facility]) 59761268 Hypertensive disorder Hypertensive Disorder Problem 12/11/2019 05:29:00 PM EDT ANNIKA ([facility]) 44408209 Depressive disorder Depressive Disorder Problem 1 05:29:00 PM EDT ANNIKA ([facility]) 48558906 Hypothyroidism Hypothyroidism Problem 12/11/2019 05:29: 00 PM EDT [place] ([facility]) 788.30 Urinary incontinence Urinary incontinence 07/03 02:29:56 PM EDT [facility] [id number] Clinical history and observation finding s Clinical History and Observation Findings Problem 07/04/2019 12:00:00 AM EDT ANNIKA ([facility]) L02.214 Cutaneous abscess of groin Cutaneous abscess of groin 03/04/2019 02:03:37 PM [facility] 250.80 Type 2 diabetes mellitus with hyperglyce bryan Type 2 diabetes mellitus with hyperglycemia 03/04/2019 02:03:37 PM [facility] [id number] Evaluation finding Evaluation Finding Problem 08/2019 12:00:00 AM [facility] 45086250 Abscess of groin Abscess of Groin Problem 03/04/2019 12 :00:00 AM EST [facility]) E11.9 Type 2 diabetes mellitus without complic ations Type 2 diabetes mellitus without complications 02/10/2019 06:49:44 PM [facility] Surgeries/Procedures Procedure Description Date Indications Data Source(s) MHC Telemed E/M Lvl 3--Est pt 03/10/2020 12:00:[address] [facility] ([facility]) MHC Telemed E/M Lvl 3--Est pt 03/10/2020 12:00:00 AM EST - 03/10/2020 12:00:00 AM EST [facility] ([facility]) MHC Telemed E/M Lvl 3--Est pt 07/30/2019 12:00:00 AM E DT [facility] ([facility]) MHC Telemed E/M Lvl 3--Est pt 07/30/2019 12:00:00 AM EDT - 07/30/2019 12:00:00 AM EDT [facility] ([facility]) [id number]"Psychotherapy 06/20/2019 12:00:00 AM EDT [facility] ([facility]) [id number]"Psychotherapy 0 12:00:00 AM EDT - 06/20/2019 12:00:00 AM EDT [facility] ([facility]) MHC Telemed E/M Lvl 3--Est pt 05/28/2019 12:00:00 AM E DT [facility] ([facility]) MHC Telemed E/M Lvl 3--Est pt 05/28/2019 12:00:00 AM EDT - 05/28/2019 12:00:00 AM EDT [facility] ([facility]) MHC Telemed E/M Lvl 3--Est pt 05/22/2019 12:00:00 AM E DT [facility] ([facility]) MHC Telemed E/M Lvl 3--Est pt 05/22/2019 12:00:00 AM EDT - 05/22/2019 12:00:00 AM EDT [facility] ([facility]) Brief Individual Psychotherapy - 30 min 04/14/2019 12: 00:00 AM EST [facility] ([facility]) Brief Individual Psychotherapy - 30 min 04/14/2019 12:00:00 AM EST - 04/14/2019 12:00:00 AM EST [facility] ([facility]) I & D Abscess Simple 03/25/2019 12:00:00 AM EST MEDENT ([facility], ) OFFICE OUTPATIENT VISIT 15 MINUTES 02/20/2019 12:00:00 AM EST [facility] ([facility]) OFFICE OUTPATIENT VISIT 15 MINUTES 02/20 12:00:00 AM EST - 02/20/2019 12:00:00 AM EST [facility] ([facility]) INCISION & DRAINAGE ABSCESS SIMPLE/SINGLE 02/13/2019 1 2:00:00 AM EST MED[facility] ([facility]) Results ID Date Data Source [id number] 02/27/2020 04:59:00 AM EST BRIGITTE Name Value Range Interpretation Code Description Data Kate rce(s) Supporting Document(s) SARS coronavirus 2 RNA [Presence] in Res piratory specimen by SARA with probe detection NYSDOH This lab was ordered by [facility] a nd reported by [facility]. ID Date Data Source [id number] 07/04/2019 02:07:28 PM EDT [facility] Measurements & CalculationsHeight: 64.50 inches [...] clinicHave you seen a dentist? Yes - [facility] Int[facility] performed by: Jamarcus Lopez MA, [...] during this visit, including review of any wxii-yut-kpqvqep medications, herbal therapies, and/or supplements.Allergy ReviewAllergy List [...] incontinence (ICD-788.30) (ICD10- R32)Assessment not SavedUrinary incontinence (FRN02-L85): refer to urologyMedications:CEFUROXIME AXETIL 500 MG ORAL [...] ElectronicAllergies:No Known Allergies (updated 04/29/2019) Orders:Surgical Consult [CPT-75008] Adult - Ofc Vst, EST, Level III [CPT-59321] Urology Consult [CPT-23847] Medications:CEFUROXIME AXETIL 500 MG ORAL TABLET (CEFUROXIME AXETIL) one tab po BID #30[Tablet] x 0 Route:ORAL Entered and Authorized by: Venkatesh Valentine DO Method used: Electronically to meets #08* ([id number]) [address] [place] [address] Note to Pharmacy: Route: ORAL; RxID: [id number] signed by Venkatesh Valentine DO on 07/04/2019 [...] rce(s) Supporting Document(s) ID Date Data Source [id number] 04/29/2019 10:10:00 AM [facility] Name Value Range Interpretation Code Description Data Kate rce(s) Supporting Document(s) HGBA1C 9.1 % N [facility] ID Date Data Source [id number] 04/29/2019 09:35:22 AM [facility] Measurements & CalculationsHeight: 64.50 inches 163.83 cm [...] clinicHave you seen a dentist? Yes - [facility] dentalRate Your HealthIn general, would you say [...] during this visit, including review of any dmem-rud-nfakldo medications, herbal therapies, and/or supplements.Allergy ReviewAllergy List [...] Problems:Assessed:Type 2 diabetes mellitus with hyperglycemia (ICD-250.80) (LIK64-H94.65) Assessment: Instructions: Recommend low carbohydrate diet: reduce [...] call with any concerns.Cutaneous abscess of groin (YEQ40-C24.214) Assessment: Instructions: Resolved, signed for records today from your surgeon.HYPERTENSION (ICD-401.9) (LCX70-T88) Assessment: Instructions: Appears at goal today. Recommend reduced salt intake, cut back on caffeine and alcohol, increase physical activity. We reviewed the fpc risks associated with uncontrolled high blood pressure, [...] alcohol, increase physical activity. We reviewed the adjunct faculty for medical terminology risks associated with uncontrolled high blood pressure, [...] ORAL TABLETAllergies:No Known Allergies (updated 04/29/2019) Orders:HgBA1c [CPT-82122] 60895 - Venipuncture [CPT-48835] Adult - Ofc Vst, EST, Level III [CPT-06168] Follow-Up Return to clinic: in 90 days for follow upAdditional Follow-Up: T2DM, HTNClinical Visit Summary Completed]Labs In-House Blood TestsDate/Time Collected: April 29, 2019 10:13 AMTest Result Reference Range Normal ValueComments: labs done in office, taken from right ac, tolerated well.Josefina Díaz, April 29, 2019 10:13 AM Name Value Range Interpretation Code Description Data Kate rce(s) Supporting Document(s) ID Date Data Source [id number] 03/04/2019 01:02:54 PM EST [facility] Measurements & CalculationsHeight: 64.50 inches [...] at this appointment. Pt was admitted to [facility] on 02/21/19 for abscesses of the groin. During admission, patient was brought to the OR on 02/21/19 for an I&D by Dr. Vasquez. Discharged 02/26/2019. Discharge summary reviewed, recommendation was for 10 days total of Augmentin, intended to be started on 02/26/2019, and dressing changes every 2 days. Pt reports she is unable to perform dressing changes independently. Had [facility] home health perform dressing changes on [...] during this visit, including review of any cyhu-exj-lxaiqpt medications, herbal therapies, and/or supplements.Allergy ReviewAllergy List [...] area of induration involving the right groin; oral pathologist for exam Natalee ZuñigaOrientation: oriented to time, place, and personMood & Affect: no depression, anxiety, or agitationJudgment & Insight: intactCare Management Plan Transitions of CareInboundRate Your HealthIn general, would you say your health is? FairAssessment & Plan Problems:Added: Cutaneous abscess of groin (YWS44-U07.214) Assessment: Instructions: Wound care and dressing changes provided in the office today. Referral generated for general surgical outpatient followup as well as home care for dressing changes. ER precautions for worsening symptoms. Appointment given here for 03/06/2019 for dressing change if home care is unable to have a visit by 03/06/2019.Type 2 diabetes mellitus with hyperglycemia (ICD-250.80) (ELN03-J45.65) Assessment: Instructions: Reiterated the importance of diabetic control with wound healing.Cutaneous abscess of groin (TES99-S74.214) Assessment: Time spent 15 minutes, in addition [...] TABLETAllergies:No Known Allergies (updated 03/04/2019) Orders:Surgical Consult [CPT-99479] Other Referral [[id number]] Adult - Ofc Vst, EST, Level IV [CPT-24499] Follow-Up Return to clinic: in 2-3 days for follow upAdditional Follow-Up: wound care, 2 weeks (or soonest available) diabetes follow-up with Dr. Gerardlinical Visit Summary Completed Name Value Range Interpretation Code Description Data Kate rce(s) Supporting Document(s) ID Date Data Source [id number] 02/13/2019 12:40:00 PM EST [facility] ([facility], [facility]) Name Value Range Interpretation Code Description Data Kate rce(s) Supporting Document(s) Bacteria identified in Wound by Culture Laboratory test result [facility] ([facility], [facility]) <content>FULL REPORT IN LAB NOTES (eCW a [...]
<content>CLIDAMYCIN SENSITIVE.</content>
<content></content> ID Date Data Source [id number] 02/07/2019 09:28:35 AM [facility] Measurements & CalculationsHeight: 64.50 inches 163.83 cm [...] PPHave you seen a dentist? Yes - [facility]ake performed by: Akua Kramer MA, [...] during this visit, including review of any oofj-msu-ifjgyiw medications, herbal therapies, and/or supplements.Allergy ReviewAllergy List [...] Problems:Added: Type 2 diabetes mellitus without complications (KLM41-F89.9) Assessment: Instructions: Counseled on 1800 jagdish ADA, low cholesterol, low salt diets,exercise. Counseled on GLP-1 medication, risks and benefits. Patient has no family hisotry of medullary thyroid cancer/ MEN syndromes and wishes to proceed. Patient education and training completed/ scheduled. All questions answeredAssessed:Perirectal abscess (ICD-566) (DCF49-Y69.1) Assessment: Instructions: resolvedAcute vaginitis (ICD-616.10) (CLT68-Z63.0) Assessment: Instructions: Counseled patient on all diagnoses/ treatments. Return to clinic/ ER for any worsening symptoms or concernsMedication issuedAssessment not SavedScreening for malignant neoplasm of breast (FBC08-T39.39): Patient Instructions/Care Plan: Type 2 diabetes mellitus [...] TABLET-po bedtime prnRefilled:TRULICITY 1.5 MG/0.5ML SUBCUTANEOUS SOLUTION KWA-NPIQQWZH-nvfvbl 1.5 mg SQ weekly Qty: 4[Prefilled Pen Syrnge] Refills: 5 Method: ElectronicOXYBUTYNIN CHLORIDE 5 MG ORAL TABLET-1 pill po bid Qty: 60[Tablet] Refills: 5 Method: ElectronicMETFORMIN HCL 1000 MG ORAL TABLET-1 pill po bid Qty: 60[Tablet] Refills: 5 Method: ElectronicPEPCID 40 MG ORAL TABLET-1 tab po daily Qty: 30[Tablet] Refills: 5 Method: ElectronicNew Presc ription:Cake FinancialTOUCH ULTRA 2 W/DEVICE KIT-uad Qty: 1[Kit] Refills: [...] TRULICITY 0.75 MG/0.5ML SUBCUTANEOUS SOLUTION PEN-INJECTOR Qty: [id number] Refills: 4[Prefilled Pen Syrnge] To: TRULICITY 1.5 MG/0.5ML SUBCUTANEOUS SOLUTION FZD-GZRJPAIA-esqrkm 1.5 mg SQ weekly Qty: 4[Prefilled Pen Syrnge] Refills: 5Allergies:No Known Allergies (updated 06/18/2017) Orders:COMP METABOLIC PANEL [CPT-48521] HgBA1c [CPT-55379] LIPID PANEL [CPT-86301] TSH [CPT-90085] T-4 free [CPT-01369] Microalbumin urine [[id number]] Adult - Ofc Vst, EST, Level IV [CPT-41973] Follow-Up Return to clinic: in 90 days [...] leted Unknown if ever smoked [facility] ([facility]) Smoking 07/30/2019 12:00:00 AM EDT Unknown if ever smoked comp leted Unknown if ever smoked [facility] ([facility]) Smoking 06/20/2019 12:00:00 AM EDT Unknown if ever smoked comp leted Unknown if ever smoked [facility] ([facility]) Smoking 05/28/2019 12:00:00 AM EDT Unknown if ever smoked comp leted Unknown if ever smoked [facility] ([facility]) Smoking 05/22/2019 12:00:00 AM EDT Unknown if ever smoked comp leted Unknown if ever smoked [facility] ([facility]) Smoking 04/14/2019 12:00:00 AM EST Unknown if ever smoked comp leted Unknown if ever smoked [facility] ([facility]) Smoking 02/20/2019 12:00:00 AM EST Unknown if ever smoked comp leted Unknown if ever smoked [facility] ([facility]) Vital Signs ID Date Data Source UNK Name Value Range Interpretation Code Description Data Source(s) Body weight 2932 [oz_av] 2932 [oz_av] ANNIKA ([facility]) Systolic blood pressure 123 mm[Hg] 123 mm[Hg] A THENA ([facility]) Body mass index (BMI) [Ratio] 31 kg/m2 31 kg/ m2 ANNIKA ([facility]) Body height 64.5 [in_i] 64.5 [in_i] ANNIKA ([facility]) Diastolic blood pressure 91 mm[Hg] 91 mm[Hg] ANNIKA ([facility]) Body height 0.00 in Normal (applies to non-numeric resu lts) 0.00 in [facility] ([facility]) Body weight Measured 212.00 lbs Normal (applies to n on-numeric results) 212.00 lbs [facility] ([facility]) Body mass index (BMI) [Ratio] 0.00 kg/m2 No rmal (applies to non-numeric results) 0.00 kg/m2 [facility] ([facility]) Systolic blood pressure 0 mm[Hg] Normal (applies t o non-numeric results) 0 mm[Hg] [facility] ([facility]) Diastolic blood pressure 0 mm[Hg] Normal (applies to non-numeric results) 0 mm[Hg] [facility] ([facility]) Systolic blood pressure 136 mm[Hg] 136 mm[Hg] M EDENT ([facility], [facility]) Diastolic blood pressure 94 mm[Hg] 94 mm[Hg] MEDENT ([facility], [facility]) Heart rate 101 /min 101 /min [facility] ([facility], [facility]) Respiratory rate 12 /min 12 /min [facility] ( [facility], [facility]) Oxygen saturation in Arterial blood by Pulse oximetry 98 % 98 % MED[facility] ([facility], [facility]) Body weight 202.00 [lb_av] 202.00 [lb_av] MEDEN T ([facility], [facility]) Body height 65 [in_i] 65 [in_i] [facility]) 5'5" Body mass index (BMI) [Ratio] 33.6 kg/m2 33.6 k g/m2 [facility] ([facility], [facility]) Systolic blood pressure 137 mm[Hg] 137 mm[Hg] M EDENT ([facility], [facility]) Diastolic blood pressure 92 mm[Hg] 92 mm[Hg] [facility] ([facility], [facility]) Heart rate 80 /min 80 /min [facility] ([facility]) Oxygen saturation in Arterial blood by Pulse oximetry 98 % 98 % [facility] ([facility], [facility]) Body temperature 97.9 [degF] 97.9 [degF] [facility] ([facility], [facility]) Body weight 202.00 [lb_av] 202.00 [lb_av] MEDEN T ([facility], [facility]) Body height 65 [in_i] 65 [in_i] MED[facility] ([facility], [facility]) 5'5" Body mass index (BMI) [Ratio] 33.6 kg/m2 33.6 k g/m2 [facility] ([facility], [facility]) Body height 0.00 in Normal (applies to non-numeric resu lts) 0.00 in [facility] ([facility]) Body weight Measured 0.00 lbs Normal (applies to n on-numeric results) 0.00 lbs [facility] ([facility]) Body mass index (BMI) [Ratio] 0.00 kg/m2 No rmal (applies to non-numeric results) 0.00 kg/m2 [facility] ([facility]) Systolic blood pressure 0 mm[Hg] Normal (applies t o non-numeric results) 0 mm[Hg] [facility] ([facility]) Diastolic blood pressure 0 mm[Hg] Normal (applies to non-numeric results) 0 mm[Hg] [facility] ([facility]) Systolic blood pressure 118 mm[Hg] 118 mm[Hg] M EDENT ([facility], [facility]) Diastolic blood pressure 86 mm[Hg] 86 mm[Hg] MED[facility] ([facility], [facility]) Heart rate 69 /min 69 /min [facility] ([facility]) Respiratory rate 17 /min 17 /min [facility] ( [facility], [facility]) Oxygen saturation in Arterial blood by Pulse oximetry 96 % 96 % [facility] ([facility], [facility]) Body temperature 98.7 [degF] 98.7 [degF] MED[facility] ([facility], [facility]) Body weight 213.00 [lb_av] 213.00 [lb_av] MEDEN T ([facility], [facility]) Body height 65 [in_i] 65 [in_i] MED[facility] ([facility], [facility]) 5'5" Body mass index (BMI) [Ratio] 35.4 kg/m2 35.4 k g/m2 [facility] ([facility], [facility]) Systolic blood pressure 117 mm[Hg] 117 mm[Hg] M EDENT ([facility]) Diastolic blood pressure 79 mm[Hg] 79 mm[Hg] MED[facility] ([facility]) Body height 65 [in_i] 65 [in_i] [facility] ([facility]) 5'5" Body weight 215.25 [lb_av] 215.25 [lb_av] MEDEN T ([facility]) Body mass index (BMI) [Ratio] 35.8 kg/m2 35.8 k g/m2 [facility] ([facility]) Body weight 97.637 kg 97.637 kg [facility] ([facility]) Body weight 3570.08 [oz_av] 3570.08 [oz_av] ATH ALBER ([facility]) Systolic blood pressure 107 mm[Hg] 107 mm[Hg] A THENA ([facility]) Body height 64.5 [in_i] 64.5 [in_i] ANNIKA ([facility]) Diastolic blood pressure 77 mm[Hg] 77 mm[Hg] ANNIKA ([facility]) Body mass index (BMI) [Ratio] 0.00 kg/m2 No rmal (applies to non-numeric results) 0.00 kg/m2 [facility] ([facility]) Systolic blood pressure 0 mm[Hg] Normal (applies t o non-numeric results) 0 mm[Hg] [facility] ([facility]) Diastolic blood pressure 0 mm[Hg] Normal (applies to non-numeric results) 0 mm[Hg] [facility] ([facility]) Body height 0.00 in Normal (applies to non-numeric resu lts) [facility] Body weight Measured 0.00 lbs Normal (applies to n on-numeric results) 0.00 lbs [facility] ([facility]) Body weight 3440 [oz_av] 3440 [oz_av] ANNIKA ([facility]) Systolic blood pressure 124 mm[Hg] 124 mm[Hg] A THEN ([facility]) Body height 64.5 [in_i] 64.5 [in_i] ANNIKA ([facility]) Diastolic blood pressure 83 mm[Hg] 83 mm[Hg] ANNIKA ([facility]) Systolic blood pressure 144 mm[Hg] 144 mm[Hg] M EDENT ([facility], ) Diastolic blood pressure 92 mm[Hg] 92 mm[Hg] [facility] ([facility], ) Heart rate 71 /min 71 /min [facility] ([facility], ) Body height 65 [in_i] 65 [in_i] [facility] ([facility], ) 5'5" Body weight 216.00 [lb_av] 216.00 [lb_av] MEDEN T ([facility], ) Body mass index (BMI) [Ratio] 35.9 kg/m2 35.9 k g/m2 [facility] ([facility], ) Body weight 97.978 kg 97.978 kg [facility] ([facility], ) Systolic blood pressure 159 mm[Hg] 159 mm[Hg] M EDENT ([facility], ) Diastolic blood pressure 103 mm[Hg] 103 mm[Hg] [facility] ([facility], ) Body height 65 [in_i] 65 [in_i] MEDENT ([facility], ) 5'5" Body weight 218.00 [lb_av] 218.00 [lb_av] MEDEN T ([facility], ) Body mass index (BMI) [Ratio] 36.3 kg/m2 36.3 k g/m2 [facility] ([facility], ) Body weight 98.885 kg 98.885 kg [facility] ([facility], ) Body weight 3408 [oz_av] 3408 [oz_av] ANNIKA ([facility]) Systolic blood pressure 124 mm[Hg] 124 mm[Hg] A THENA ([facility]) Body height 64.5 [in_i] 64.5 [in_i] ANNIKA ([facility]) Diastolic blood pressure 86 mm[Hg] 86 mm[Hg] ANNIKA ([facility]) Systolic blood pressure 126 mm[Hg] 126 mm[Hg] M EDENT ([facility], [facility]) Diastolic blood pressure 84 mm[Hg] 84 mm[Hg] MEDENT ([facility], [facility]) Heart rate 103 /min 103 /min MED[facility] ([facility], [facility]) Oxygen saturation in Arterial blood by Pulse oximetry 97 % 97 % MED[facility] ([facility], [facility]) Body temperature 97.6 [degF] 97.6 [degF] MEDENT ([facility], [facility]) Body weight 214.00 [lb_av] 214.00 [lb_av] MEDEN T ([facility], [facility]) Body height 65 [in_i] 65 [in_i] MEDENT ([facility], [facility]) 5'5" Body mass index (BMI) [Ratio] 35.6 kg/m2 35.6 k g/m2 [facility] ([facility], [facility]) Systolic blood pressure 123 mm[Hg] 123 mm[Hg] M EDENT ([facility], [facility]) Diastolic blood pressure 77 mm[Hg] 77 mm[Hg] MEDENT ([facility], [facility]) Heart rate 103 /min 103 /min MED[facility] ([facility], [facility]) Respiratory rate 12 /min 12 /min MEDENT ( [facility], [facility]) Oxygen saturation in Arterial blood by Pulse oximetry 96 % 96 % MED[facility] ([facility], [facility]) Body temperature 98.8 [degF] 98.8 [degF] MEDENT ([facility], [facility]) Body weight 214.00 [lb_av] 214.00 [lb_av] MEDEN T ([facility], [facility]) Body height 65 [in_i] 65 [in_i] MEDENT ([facility], [facility]) 5'5" Body mass index (BMI) [Ratio] 35.6 kg/m2 35.6 k g/m2 [facility] ([facility], [facility]) Body weight 3424 [oz_av] 3424 [oz_av] ANNIKA ([facility]) Systolic blood pressure 108 mm[Hg] 108 mm[Hg] Sita REICH ([facility]) Body height 64.5 [in_i] 64.5 [in_i] ANNIKA ([facility]) Diastolic blood pressure 75 mm[Hg] 75 mm[Hg] ANNIKA ([facility]) Patient Treatment Plan of Care Planned Activity Planned Date Details Description Data Source (s) valacyclovir 1000 MG Oral Tablet ANNIKA ([facility]) 0.5 ML dulaglutide 1.5 MG/ML [facility]-In[facility]or [facility]] [facility] Hydrochlorothiazide 25 MG / Triamterene 37.5 MG Oral Capsule [facility] Triamcinolone Acetonide 1 MG/ML Topical Cream [facility] tizanidine 4 MG [facility]t [facility] terconazole 4 MG/ML Vaginal Cream [facility] Prednisone 10 MG Oral Tablet ANNIKA ([facility]) prednisolone acetate 10 MG/ML Ophthalmic Suspension ANNIKA ([facility]) OneTouch Ultra2 Meter USE DIRECTED [facility] OneTouch Ultra Blue Test Strip TEST FOUR TIMES A DAY [facility]) OneTouch Delica Plus Lancet 33 gauge TEST FOUR TIMES A DAY [facility] Metformin hydrochloride 1000 MG Oral Tablet [facility] Ketorolac Tromethamine 10 MG Oral Tablet [facility] Acetaminophen 325 MG / Hydrocodone Bitartrate 5 MG Oral Tablet ANNIKA ([facility]) chlorhexidine gluconate 40 MG/ML Medicated Liquid Soap [Hibiclens] [facility] Fluconazole 150 MG [facility] Tablet [facility] Fluconazole 100 MG [facility]t [facility] Fenofibrate 160 MG Oral Tablet [facility] Deblitane 0.35 mg tablet TAKE ONE TABLET BY MOUTH EVERY DAY [facility] Cyclopentolate hydrochloride 10 MG/ML Ophthalmic Solution [facility] Cyclobenzaprine hydrochloride 10 MG Oral Tablet ANNIKA ([facility]) Cholecalciferol 2000 UNT Oral Tablet ANNIKA ([facility]) Cephalexin 500 MG Oral Capsule ANNIKA ([facility]) Cefuroxime 500 MG Oral Tablet ANNIKA ([facility]) buspirone hydrochloride 15 MG Oral Tablet ANNIKA ([facility]) Amoxicillin 875 MG / Clavulanate 125 MG Oral Tablet [Augmentin] ANNIKA ([facility]) atorvastatin 10 MG Oral Tablet ANNIKA ([facility]) Atenolol 100 MG Oral Tablet ANNIKA ([facility]) aripiprazole 10 MG Oral Tablet ANNIKA ([facility]) Amoxicillin 875 MG Oral Tablet ANNIKA ([facility]) Amoxicillin 500 MG Oral Capsule ANNIKA ([facility])
[2020-03-29 20:07] LABS: INR 0.97; PARTIAL THROMBOPLASTIN TIME 20.9 SECONDS (24.2-38.5); PROTHROMBIN TIME 13.1 SECONDS (12.5-14.3)
[2020-03-29 20:10] LABS: ALBUMIN 2.8 GM/DL (3.2-5.2); ALT/SGPT 16 U/L (12-78); BILIRUBIN,DIRECT 0.1 MG/DL (0.0-0.2); BILIRUBIN,TOTAL 0.6 MG/DL (0.2-1.0); BLOOD UREA NITROGEN 9 MG/DL (7-18); CALCIUM LEVEL 10.4 MG/DL (8.5-10.1); CARBON DIOXIDE LEVEL 32 MEQ/L (21-32); CHLORIDE LEVEL 101 MEQ/L (98-107); CK-MB VALUE MASS < 1.0 NG/ML (<3.6); CPK CREATINE PHOSPHOKINASE 36 U/L (26-192); CREATININE FOR GFR 0.73 MG/DL (0.55-1.30); FREE T4 1.21 NG/DL (0.76-1.46); GLOMERULAR FILTRATION RATE > 60.0 (>58); GLUCOSE, FASTING 230 MG/DL (70-100); LIPASE 60 U/L (73-393); MB/CK RELATIVE INDEX 2.78 (< OR =4); POTASSIUM SERUM 3.1 MEQ/L (3.5-5.1); SODIUM LEVEL 141 MEQ/L (136-145); TOTAL PROTEIN 7.1 GM/DL (6.4-8.2); TROPONIN I < 0.02 NG/ML (< 0.10)
[2020-03-29] MEDS ORDERED: POTASSIUM CHLORIDE 10 MEQ SR TABLET PO ONE (20:15)
--- NOTE | 2020-03-29 20:40 | REPVR ---
PROCEDURE INFORMATION: Exam: XR Chest, 1 View Exam date and time: 03/29/2020 8:18 PM Age: 49 years old Clinical indication: Other: ? Chf; Additional info: HTN eval for chf TECHNIQUE: Imaging protocol: XR of the chest Views: 1 view. COMPARISON: CR PORTABLE CHEST X-RAY 03/02/2020 10:34 AM FINDINGS: Lungs: Unremarkable. No consolidation. Pleural spaces: Unremarkable. No pleural effusion. No pneumothorax. Heart/Mediastinum: Unremarkable. No cardiomegaly. No evidence of CHF. Bones/joints: Postoperative partly visible within the left humerus. No acute fracture. IMPRESSION: No acute findings. Electronically signed by: Nabil Vora On 03/29/2020 20:40:06 PM
[2020-03-29] MEDS ORDERED: LEVEMIR (INSULIN DETEMIR) 1 UNITS/0.01ML SC SCH (21:00)
[2020-03-29] MEDS ORDERED: SPIRONOLACTONE 50 MG TAB PO SCH (21:00)
[2020-03-29] MEDS ORDERED: HumaLOG INSULIN (NovoLOG) PER UNIT SC SCH (21:00)
[2020-03-29] MEDS: busPIRone 10 MG TAB PO SCH (21:00)
--- NOTE | 2020-03-29 21:06 | ECGEPIP ---
[facility] - ED Test Date: 2020-03-29 Pat Name: JAYSON DOBBS Department: Room: - Gender: Female [facility]: : 1970 Requested By: VENKATESH Leary Order Number: [id number] Reading MD: Owen Mei Measurements Intervals [employer] Rate: 91 P: 82 MO: 188 QRS: -59 QRSD: 115 T: 27 QT: 398 QTc: 490 Interpretive Statements SINUS RHYTHM PATTERN CONSISTENT WITH PULMONARY DISEASE LEFT ANTERIOR FASCICULAR BLOCK SEPTAL MYOCARDIAL INFARCTION, OF INDETERMINATE AGE SIMILAR TO 02/27/20 Electronically Signed on 03-29-2020 21:06:46 EST by Owen Mei
[2020-03-29 21:27] LABS: BASO # 0.1 10^3/uL (0.0-0.2); EOS # 0.3 10^3/uL (0.0-0.5); EOS % 3.8 % (0.0-3.0); HEMATOCRIT 39.5 % (36.0-47.0); HEMOGLOBIN 14.1 g/dl (12.0-15.5); LYMPH # 2.6 10^3/uL (1.5-5.0); LYMPH % 35.5 % (24.0-44.0); MEAN CORPUSCULAR HEMOGLOBIN 30.9 pg (27.0-33.0); MEAN CORPUSCULAR HGB CONC 35.7 g/dl (32.0-36.5); MEAN CORPUSCULAR VOLUME 86.4 fl (80.0-96.0); MONO # 0.4 10^3/uL (0.0-0.8); NEUTROPHILS # 3.9 10^3/uL (1.5-8.5); NEUTROPHILS % 54.4 % (36.0-66.0); PLATELET COUNT, AUTOMATED 327 10^3/uL (150-450); RED BLOOD COUNT 4.57 10^6/uL (4.00-5.40); WHITE BLOOD COUNT 7.2 10^3/uL (4.0-10.0)
--- NOTE | 2020-03-29 21:53 | IPNPDOC ---
Text Note Date of Service The patient was seen on 03/29/20. NOTE Time of service 10:30 PM Ms. Gill is a 49-year-old smoker with, a history of IDDM with neuropathy, HTN, HERLINDA, hypothyroidism, depression, anxiety, dyslipidemia, and obesity who presented with complaints of high blood pressure at home and vomiting. She is concerned that she was not retaining her blood pressure meds. Therefore, she came to the hospital for evaluation. Shortly after receiving IV labetalol, her blood pressure dropped from 194/110 to 166/94; she'll be admitted overnight under observation. We will add spironolactone because of its anti-androgenic and diuretic effects to her current anti-hypertensive regimen. 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 Dsouza's H&P VS,Slava, I+O VS, Slava, I+O Laboratory Tests 03/29/20 19:27 03/29/20 20:17 Vital Signs Date Time Temp Pulse Resp B/P (MAP) Pulse Ox O2 Delivery O2 Flow Rate FiO2 03/29/20 21:43 87 17 164/98 (120) 97 Room Air 03/29/20 17:28 97.9 KANNAN DASH MD Mar 29, 2020 21:53
[2020-03-29] MEDS ORDERED: BUSP30TA PO (22:03)
[2020-03-29] MEDS ORDERED: SYNT150T PO (22:03)
[2020-03-29] MEDS ORDERED: AMLO1TAB25 PO (22:03)
[2020-03-29] MEDS ORDERED: BASA100I SC (22:03)
[2020-03-29] MEDS ORDERED: PARO40TA3 PO (22:03)
[2020-03-29] MEDS ORDERED: TRAZ-252 PO (22:03)
--- OUTSIDE RECORDS SUMMARY | 2020-03-29 22:03 | CCD ---
Author Author [facility] Organization [facility] Address Unknown Phone Unavailable Care Team Providers Care Resource Manager Name Role Phone Kayli Rojas MD Unavailable [...] LYNDA, ELSA PA Unavailable Unavailable Liz, Dariana SUMMER ANALYST Unavailable Unavailable Liz, Dariana SUMMER ANALYST Unavailable Unavailable Liz, Dariana SUMMER ANALYST Unavailable Unavailable Liz, Dariana SUMMER ANALYST Unavailable Unavailable Liz, Dariana SUMMER ANALYST Unavailable Unavailable Liz, Dariana SUMMER ANALYST Unavailable Unavailable Liz, Dariana SUMMER ANALYST Unavailable Unavailable Liz, Dariana SUMMER ANALYST Unavailable Unavailable Liz, Dariana SUMMER ANALYST Unavailable Unavailable Liz, Dariana SUMMER ANALYST Unavailable Unavailable Liz, Dariana SUMMER ANALYST Unavailable Unavailable LETTIERE, A JESSICA PA Unavailable [...] Unavailable Unavailable Stacy Kelly Unavailable Unavailable Stacy Kelly Unavailable Unavailable Stacy, Kelly Unavailable Unavailable [...] Rani MEHTA MD Unavailable Unavailable MACQUEEN, DIPTI SUMMER ANALYST Unavailable Unavailable MACQUEEN, DIPTI SUMMER ANALYST Unavailable Unavailable MACQUEEN, DIPTI SUMMER ANALYST Unavailable Unavailable MACQUEEN, DIPTI SUMMER ANALYST Unavailable Unavailable MACQUEEN, DIPTI SUMMER ANALYST Unavailable Unavailable MACQUEEN, DIPTI SUMMER ANALYST Unavailable Unavailable MACQUEEN, DIPTI SUMMER ANALYST Unavailable Unavailable MACQUEEN, DIPTI SUMMER ANALYST Unavailable Unavailable MACQUEEN, DIPTI SUMMER ANALYST Unavailable Unavailable MACQUEEN, DIPTI SUMMER ANALYST Unavailable Unavailable MACQUEEN, DIPTI SUMMER ANALYST Unavailable Unavailable Lino, Syl TICKET COLLECTOR OR USHER TICKET COLLECTOR OR USHER Unavailable Unavailable Lino, A Syl TICKET COLLECTOR OR USHER Unavailable Unavailable Lino, A Syl TICKET COLLECTOR OR USHER Unavailable Unavailable Lino, A Syl TICKET COLLECTOR OR USHER Unavailable Unavailable Lino, A Syl TICKET COLLECTOR OR USHER Unavailable Unavailable Lino, A Syl TICKET COLLECTOR OR USHER Unavailable Unavailable Lino, A Syl TICKET COLLECTOR OR USHER Unavailable Unavailable [place], A Syl TICKET COLLECTOR OR USHER Unavailable Unavailable [place], A Syl TICKET COLLECTOR OR USHER Unavailable Unavailable Lino, A Syl TICKET COLLECTOR OR USHER Unavailable Unavailable [place], A Syl TICKET COLLECTOR OR USHER Unavailable Unavailable [place], A Syl TICKET COLLECTOR OR USHER Unavailable Unavailable [place], A Syl TICKET COLLECTOR OR USHER Unavailable Unavailable [place], A Syl TICKET COLLECTOR OR USHER Unavailable Unavailable [place], A Syl TICKET COLLECTOR OR USHER Unavailable Unavailable Lino, A Syl TICKET COLLECTOR OR USHER Unavailable Unavailable Lino, A Syl TICKET COLLECTOR OR USHER Unavailable Unavailable Lino, A Syl TICKET COLLECTOR OR USHER Unavailable Unavailable [place], A Syl TICKET COLLECTOR OR USHER Unavailable Unavailable [place], A Syl TICKET COLLECTOR OR USHER Unavailable Unavailable [place], A Syl TICKET COLLECTOR OR USHER Unavailable Unavailable [place], A Syl TICKET COLLECTOR OR USHER Unavailable Unavailable [place], A Syl TICKET COLLECTOR OR USHER Unavailable Unavailable Lino, A Syl TICKET COLLECTOR OR USHER Unavailable Unavailable Lino, A Syl TICKET COLLECTOR OR USHER Unavailable Unavailable Lino, A Syl TICKET COLLECTOR OR USHER Unavailable Unavailable Lino, A Syl TICKET COLLECTOR OR USHER Unavailable Unavailable Lino, A Syl TICKET COLLECTOR OR USHER Unavailable Unavailable Lino, A Syl TICKET COLLECTOR OR USHER Unavailable Unavailable PierreLeslyt Unavailable Re-disclosure Warning The [...] is protected by Article 27-F of the [facility] Public Health law. If you continue you may have access to information: Regarding HIV / AIDS; Provided by facilities licensed or operated by the [facility] Office of Mental Health; or Provided by the [facility] Office for People With Developmental Disabilities. If such information is present, then the following [facility] mandated warning applies: This information has [...] law may result in a fine or prison sentence or both. A general authorization for the release of medical or other information is NOT sufficient authorization for further disc losure. Allergies and Adverse Reactions Type Description Substance Reaction Status Data Source(s ) Allergy to substance Allergy to substance Allergy to substance ANNIKA ([facility]) Family History Family Member Name Family Member Gender Family Member Status Date o f Status Description Data Source(s) Unknown Unknown Problem MEDENT ([facility]) Unknown Unknown Problem [facility] Unknown Male Problem MEDENT ([facility]) Encounters Encounter Providers Location Date Indications Data Source(s ) Williams Rojas MD: [address] [place] [phone], Ph. Attender: Williams Rojas MD [facility] Medical 03/11/2020 12:00:00 AM EST ANNIKA ([facility]) Outpatient Attender: DIPTI GARCIA NP [facility] 03/10/2020 11:30:00 AM EST - 03/10/2020 11:30:00 AM EST [facility] ([facility]) Attender: DIPTI GARCIA NP 03/10/2020 12:00:00 AM EST [facility] ([facility]) Outpatient Attender: Milagros Sosa Prim jg 12/04/2019 05:20:00 PM EDT MEDENT ([facility]) Outpatient Attender: NIKI PRINCE FP 11/26/2019 12:59:00 P M EDT [facility] Outpatient Attender: JESSICA Sosa Prim jg 11/11/2019 10:15:00 AM EDT MEDENT ([facility]) Outpatient Attender: Syl PRINCE FP 10/28/2019 09:3 9:01 AM EDT [facility] Outpatient Attender: Syl PRINCE FP 10/27/2019 12:1 1:02 AM EDT [facility] Outpatient Attender: Syl MEDINA 10/01/2019 09:4 0:01 AM EDT [facility] Outpatient Attender: NIKI MEDINA 09/30/2019 04:33:00 P M EDT [facility] Outpatient Attender: Syl PRINCE FP 08/22/2019 10:2 9:01 AM EDT [facility] Outpatient Attender: Syl MEDINA 08/22/2019 10:0 8:01 AM EDT [facility] Outpatient Attender: Kelly Kumar MD 08/07/2019 12:00:00 A M [facility] Outpatient Attender: DIPTI GARCIA NP [facility] Gigi андрей 07/30/2019 03:00:00 AM EDT - 07/30/2019 03:00:00 AM EDT [facility] ([facility]) Attender: DIPTI GARCIA NP 07/30/2019 12:00:00 AM EDT [facility] ([facility]) Outpatient Attender: NIKI PRINCE FP 07/29/2019 02:45:00 P M EDT [facility] Outpatient Attender: Sylra Lino PRINCE 07/28/2019 06:2 0:01 PM EDT [facility] Outpatient Attender: NIKI PRINCE 07/24/2019 07:48:00 A M EDT [facility] Outpatient Attender: NIKI Lino NIKI 07/15/2019 01:34:01 P M EDT [facility] Outpatient Attender: JESSICA gregorio 07/15/2019 12:30:00 PM EDT MEDENT ([facility]) Outpatient Attender: TYSON SPICER MD 07/04/2019 02:37:03 P M EDT [facility] Outpatient Attender: TYSON SPICER MD 07/04/2019 02:30:10 P M EDT [facility] Outpatient Attender: TYSON SPICER MD 07/04/2019 02:30:08 P M EDT [facility] Outpatient Attender: TYSON SPICER MD 07/04/2019 01:58:00 P M EDT [facility] [email or web address]"Psychotherapy Attender: Jolene Pierre [facility] 06/20/2019 11:00:00 AM EDT - 06/20/2019 11:00:00 AM EDT [facility] ([facility]) Attender: Jolene Pierre 06/20/2019 12:00:00 AM EDT [facility] ([facility]) Outpatient Attender: DIPTI GARCIA NP [facility] 05/28/2019 04:30:00 AM EDT - 05/28/2019 04:30:00 AM EDT [facility] ([facility]) Attender: DIPTI GARCIA NP 05/28/2019 12:00:00 AM EDT [facility] ([facility]) Outpatient Attender: DIPTI GARCIA NP [facility] 05/22/2019 04:00:00 AM EDT - 05/22/2019 04:00:00 AM EDT [facility] ([facility]) Attender: DIPTI GARCIA NP 05/22/2019 12:00:00 AM EDT [facility] ([facility]) Outpatient Attender: TYSON MEDINA 05/09/2019 11:53:03 A [facility] Outpatient Attender: TYSON SPICER MD 05/09/2019 11:53:01 A M [facility] Outpatient Attender: TYSON MEDINA 05/08/2019 11:22:47 A M [facility] Outpatient Attender: Francheska Mast 05/06/2019 12:00:00 AM [facility] Outpatient Attender: TYSON SPICER MD FP 05/01/2019 04:07:01 P [facility] Outpatient Attender: TYSON SPICER MD 04/29/2019 09:12:01 A [facility] Outpatient Attender: TYSON SPICER MD 04/29/2019 08:18:00 A [facility] Brief Individual Psychotherapy - 30 min Attender: Jennifer Perales [facility] 04/14/2019 10:00:00 AM EST - 04/14/2019 10:00:00 AM EST [facility] Att[facility]: Jennifer Mendez 04/14/2019 12:00:00 AM EST [facility] ([facility]) Outpatient Attender: TYSON SPICER MD 04/11/2019 12:50:01 P [facility] Outpatient Attender: TYSON SPICER MD 04/11/2019 11:13:00 A [facility] Outpatient Attender: TYSON SPICER MD 04/11/2019 09:17:34 A [facility] Outpatient Attender: TYSON SPICER MD 04/09/2019 01:51:00 P [facility] Outpatient Attender: TYSON SPICER MD FP 04/09/2019 01:48:01 P [facility] Outpatient Attender: SHARON Hong/Josef/Adalberto/ Schuyler 04/08/2019 07:45:00 AM EST [facility] ([facility]) Outpatient Attender: TYSON SPICER MD FP 04/04/2019 11:29:01 A [facility] Outpatient Attender: TYSON SPICER MD FP 03/31/2019 04:25:00 P [facility] Outpatient Attender: SHARON Hong/Josef/Adalberto/ Reinfeliberto 03/25/2019 12:30:00 PM EST MED[facility] ([facility]) Outpatient Attender: TYSON SPICER MD FP 03/25/2019 12:28:01 P [facility] Outpatient Attender: TYSON SPICER MD FP 03/24/2019 10:03:02 A [facility] Outpatient Attender: TYSON SPICER MD FP 03/19/2019 01:20:01 P [facility] Outpatient Attender: SHARON Medina/Adalberto/ Reinfeliberto 03/13/2019 01:45:00 PM EST MED[facility] ([facility]) Outpatient Attender: TYSON SPICER MD FP 03/11/2019 03:38:01 P [facility] Outpatient Attender: TYSON SPICER MD FP 03/11/2019 12:07:03 P [facility] Outpatient Attender: TYSON SPICER MD FP 03/10/2019 10:57:01 P [facility] Outpatient Attender: TYSON SPICER MD FP 03/10/2019 01:57:03 P [facility] Outpatient Attender: TYSON SPICER MD FP 03/07/2019 11:00:01 A [facility] Outpatient Attender: TYSON SPICER MD FP 03/06/2019 04:27:59 P [facility] Outpatient Attender: TYSON SPICER MD FP 03/05/2019 03:25:00 P [facility] Outpatient Attender: TYSON SPICER MD FP 03/05/2019 12:03:00 P [facility] Outpatient Attender: TYSON SPICER MD FP 03/05/2019 10:09:00 A [facility] Outpatient Attender: TYSON SPICER MD FP 03/04/2019 03:14:00 P [facility] Outpatient Attender: TYSON SPICER MD FP 03/04/2019 03:13:01 P [facility] Outpatient Attender: TYSON SPICER MD 03/04/2019 03:12:00 P [facility] Outpatient Attender: TYSON SPICER MD 03/04/2019 03:07:01 P [facility] Outpatient Attender: TYSON SPICER MD 03/04/2019 02:04:02 P [facility] Outpatient Attender: TYSON SPICER MD 03/04/2019 11:22:01 A [facility] Outpatient Attender: TYSON SPICER MD 03/04/2019 10:04:00 A [facility] Outpatient Attender: TYSON SPICER MD 03/03/2019 04:33:00 P [facility] Outpatient Attender: TYSON SPICER MD 02/28/2019 12:34:01 P [facility] Outpatient Attender: TYSON SPICER MD 02/24/2019 09:01:04 P [facility] Outpatient Attender: ELSA Lamb 02/20/2019 04:30:00 PM EST [facility] ([facility]) Outpatient Attender: DIPTI GARCIA NP [facility] 02/20/2019 11:00:00 AM EST - 02/20/2019 11:00:00 AM EST [facility] ([facility]) Attender: DIPTI GARCIA NP 02/20/2019 12:00:00 AM EST [facility] ([facility]) Outpatient Attender: Dariana fragoso 02/13/2019 12:00:00 PM EST [facility] ([facility]) Outpatient Attender: TYSON SPICER MD 02/10/2019 06:54:01 P [facility] Outpatient Attender: TYSON SPICER MD 02/10/2019 06:50:03 P [facility] Outpatient Attender: TYSON SPICER MD 02/07/2019 09:00:01 A [facility] Outpatient Attender: TYSON SPICER MD 02/06/2019 09:07:01 A [facility] Outpatient Attender: TYSON SPICER MD 02/05/2019 03:49:00 P [facility] Outpatient Attender: TYSON SPICER MD 02/05/2019 03:48:00 P [facility] Outpatient Attender: TYSON SPICER MD 02/04/2019 04:46:01 P [facility] Outpatient Attender: Francheska Mast 01/30/2019 12:00:00 AM [facility] Functional Status Medications Medication Brand Name [...] AM EST 20 mg by mouth completed [id number] Latuda by mouth [id number] 01/14/2020 04/13/2020 twice a day 30 20 mg tablet [id number] Dipti Garcia [id number] [facility] ([facility]) Paroxetine Hydrochloride 40 MG Oral Tablet PAROXETINE HCL 01/14/2020 12:00:00 AM EST tablet 30 TAKE 1 TABLET BY MOUTH ONCE A DAY TAKE 1 TABLET BY MOUTH ONCE A DAY SOLD: 01/14/2020 [facility] Amoxicillin 875 MG Oral Tablet Amoxicillin 11/11/2019 12:00:00 AM EDT completed MEDENT ([facility]) 875 mg 11/11/2019 12:00:00 AM EDT tablet [...] 07/15/2019 12:00:00 AM EDT ORAL active MEDENT ([facility]) Triamcinolone Acetonide 1 MG/ML Topical Cream Triamcinolone Acetonide 07/15/2019 12:00:00 AM EDT active MEDENT ([facility]) Acyclovir 0.05 MG/MG Topical Ointment Acyclovir 07/15/2019 12:00:00 AM EDT completed [facility] ([facility]) 1 gram 07/15/2019 12:00:00 AM EDT tablet [...] 07/08/2019 1 2:00:00 AM EDT active MED[facility] ([facility] ) 100 mg 07/08/2019 12:00:00 AM [...] 2019 12:00:00 AM EDT 30 mg completed [id number] buspirone 05/28/2019 twice a day 30 mg tablet [id number] Dipti Garcia [id number] [facility] ([facility]) paroxetine HCl paroxetine HCl 05/28/2019 12:00:00 AM EDT 40 mg by mouth completed [id number] paroxetine HCl by mouth [id number] 05/28/2019 once a day 30 40 mg tablet 30919 [id number] Dipti Garcia [id number] [facility] ([facility]) Trazodone Hydrochloride 50 MG Oral Tablet trazodone 2019 12:00:00 AM EDT 50 mg by mouth completed [id number] trazodone by mouth [id number] 05/28/2019 08/26/2019 every night 30 50 mg tablet 15555 [id number] Maria A Garcia [id number] [facility] ([facility]) aripiprazole 10 MG Oral Tablet [Abilify] Abilify 05/28/2019 12 :00:00 AM EDT 10 mg by mouth completed [id number] Abilify by mouth [id number] 05/28/2019 08/26/2019 once a day 30 10 mg tablet 88835 [id number] Jose Rafael Ng [id number] [facility] ([facility]) buspirone hydrochloride 15 MG Oral Tablet [...] BY MOUTH ONCE DAILY SOLD: 04/11/2019 [facility] [employer] buspirone hydrochloride 15 MG Oral Tablet BUSPIRONE [...] AM EST ORAL completed MEDENT ([facility]) 150 mg 02/08/2019 12:00:00 AM EST tablet [...] fluconazole 100 MG Ora l Tablet ANNIKA ([facility]) aripiprazole 10 MG Oral Tablet aripipraz ole 10 mg tablet TAKE ONE TABLET BY MOUTH EVERY DAY aripiprazole 10 mg tablet TAKE ONE TABLET BY MOUTH EVERY DAY completed aripiprazole 1 0 MG Oral Tablet DONGOLA ([facility]) chlorhexidine gluconate 40 MG/ML Medicat ed Liquid Soap [Hibiclens] Hibiclens 4 % topical liquid WASH INTO AFFECTED AREA TWO TIMES A DAY FOR 10 DAYS Hibiclens 4 % topical liquid WASH INTO AFFECTED AREA TWO TIMES A DAY FOR 10 DAYS completed chlorhexidine gl uconate 40 MG/ML Medicated Liquid Soap [Hibiclens] ANNIKA ([facility]) OneTouch Ultra Blue Test Strip TEST FOUR TIMES A DAY [id number] completed OneTouch Ultra Blue Test Strip A ALLYSSA ([facility]) Amoxicillin 875 MG / Clavulanate 125 MG Oral Tablet [Augmentin] Augmentin 875 mg-125 mg tablet Take 1 tablet every 12 hours by oral route. Augmentin 875 mg- 125 mg tablet Take 1 tablet every 12 hours by oral route. 1 completed amoxicillin 875 MG / clavulanate 125 MG Oral Tablet [Augmentin] ANNIKA ([facility]) atorvastatin 10 MG Oral Tablet atorvasta tin 10 mg tablet TAKE 1 TABLET BY MOUTH EVERY DAY AT BEDTIME atorvastatin 10 mg tablet TAKE 1 TABLET BY MOUTH EVERY DAY AT BEDTIME completed atorvastati n 10 MG Oral Tablet DONGOLA ([facility]) Fenofibrate 160 MG Oral Tablet fenofibra te 160 mg tablet TAKE ONE TABLET BY MOUTH DAILY fenofibrate 160 mg tablet TAKE ONE TABLET BY MOUTH DAILY completed fenofibrate 160 MG Oral Tabl et ANNIKA ([facility]) tizanidine 4 MG Oral Tablet tizanidine 4 mg tablet TAKE ONE TABLET BY MOUTH EVERY 8 HOURS NEEDED tizanidine 4 mg tablet TAKE ONE TABLET B Y MOUTH EVERY 8 HOURS NEEDED completed tizani dine 4 MG Oral Tablet ANNIKA ([facility]) terconazole 4 MG/ML Vaginal Cream tercon azole 0.4 % vaginal cream INSERT ONE APPLICATORFUL VAGINALLY AT BEDTIME FOR 7 NIGHTS terconazole 0.4 % vaginal cream INSERT ONE APPLICATORFUL VAGINALLY AT BEDTIME FOR 7 NIGHTS completed terconazole 4 MG/ML Vaginal Crea m ANNIKA ([facility]) buspirone hydrochloride 15 MG Oral Table t buspirone 15 mg tablet TAKE 1 TABLET BY MOUTH TWICE A DAY buspirone 15 mg tablet TAKE 1 TABLET BY MOUTH TWICE A DAY completed buspirone hydr ochloride 15 MG Oral Tablet DONGOLA ([facility]) OneTouch Delica Plus Lancet 33 gauge TEST FOUR TIMES A DAY [id number] completed OneTouch Delica Plus Lancet 33 g auge ANNIKA ([facility]) Cholecalciferol 2000 UNT Oral Tablet cho lecalciferol (vitamin D3) 50 mcg (2,000 unit) tablet TAKE ONE TABLET BY MOUTH DAILY WITH DINNER cholecalciferol (vitamin D3) 50 mcg (2,000 unit) tablet TAKE ONE TABLET BY MOUTH DAILY WITH DINNER completed cholecalciferol 0.05 M G Oral Tablet ANNIKA ([facility]) Hydrochlorothiazide 25 MG / Triamterene 37.5 MG Oral Capsule triamterene 37.5 mg-hydrochlorothiazide 25 mg capsule TAKE ONE CAPSULE BY MOUTH DAILY triamterene 37.5 mg-hydrochlorothiazide 25 mg capsule TAKE ONE CAPSULE BY MOUTH DAILY completed hydrochlor othiazide 25 MG / triamterene 37.5 MG Oral Capsule ANNIKA ([facility]) Amoxicillin 500 MG Oral Capsule amoxicil jose rafael 500 mg capsule TAKE ONE CAPSULE BY MOUTH THREE TIMES A DAY FOR 7 DAYS amoxicillin 500 mg capsule TAKE ONE CAPS ULE BY MOUTH THREE TIMES A DAY FOR 7 DAYS completed amoxicillin 500 MG Oral Capsule DONGOLA ([facility]) Deblitane 0.35 mg tablet TAKE ONE TABLET BY MOUTH EVERY DAY [id number] completed Deblitane 0.35 mg tablet DONGOLA ([facility]) Ketorolac Tromethamine 10 MG Oral Tablet ketorolac 10 mg tablet TAKE ONE TABLET BY MOUTH EVERY 6 HOURS FOR 5 DAYS ketorolac 10 mg tablet TAKE ONE TABLET B Y MOUTH EVERY 6 HOURS FOR 5 DAYS complet ed ketorolac tromethamine 10 MG Oral Tablet ANNIKA ([facility]) Amoxicillin 875 MG Oral Tablet amoxicill in 875 mg tablet TAKE ONE TABLET BY MOUTH EVERY 12 HOURS FOR 10 DAYS amoxicillin 875 mg tablet TAKE ONE TABLE T BY MOUTH EVERY 12 HOURS FOR 10 DAYS compl eted amoxicillin 875 MG Oral Tablet ANNIKA ([facility]) Cyclobenzaprine hydrochloride 10 MG Oral Tablet cyclobenzaprine 10 mg tablet TAKE ONE TABLET BY MOUTH THREE TIMES A DAY FOR 7 DAYS cyclobenzaprine 10 mg tablet TAKE ONE TABLET BY MOUTH THREE TIMES A DAY FOR 7 DAYS completed cyclobenzaprine hydrochloride 10 MG Oral Tablet DONGOLA ([facility]) OneTouch Ultra2 Meter USE DIRECTED [id number] completed OneTouch Ultra2 Meter DONGOLA ([facility]) Cefuroxime 500 MG Oral Tablet cefuroxime axetil 500 mg tablet TAKE 1 TABLET BY MOUTH TWO TIMES A DAY cefuroxime axetil 500 mg tablet TAKE 1 T ABLET BY MOUTH TWO TIMES A DAY completed cefuroxim e 500 MG Oral Tablet ANNIKA ([facility]) Metformin hydrochloride 1000 MG Oral Tab let metformin 1,000 mg tablet TAKE ONE TABLET BY MOUTH TWICE A DAY metformin 1,000 mg tablet TAKE ONE TABLE T BY MOUTH TWICE A DAY completed me tformin hydrochloride 1000 MG Oral Tablet ANNIKA ([facility]) valacyclovir 1000 MG Oral Tablet valacyc lovir 1 gram tablet TAKE ONE TABLET BY MOUTH TWO TIMES A DAY FOR 3 DAYS valacyclovir 1 gram tablet TAKE ONE TABL ET BY MOUTH TWO TIMES A DAY FOR 3 DAYS compl eted valacyclovir 1000 MG Oral Tablet ANNIKA ([facility]) 0.5 ML dulaglutide 1.5 MG/ML Auto-Inject or [Trulicity] Trulicity 0.75 mg/0.5 mL subcutaneous pen injector INJECT 0.75MG UNDER THE SKIN ONCE A WEEK Trulicity 0.75 mg/0.5 mL subcutaneous pen injector INJECT 0.75MG UNDER THE SKIN ONCE A WEEK completed 0.5 ML dulaglutide 1.5 MG/ML Auto-Injector [Trulicity] ANNIKA ([facility]) Prednisone 10 MG Oral Tablet prednisone 10 mg tablet TAKE 2 TABLETS BY MOUTH ONCE A DAY prednisone 10 mg tablet TAKE 2 TABLETS BY MOUTH ONCE A DAY completed prednisone 10 MG Oral Tablet ANNIKA ([facility]) Cyclopentolate hydrochloride 10 MG/ML Op hthalmic Solution cyclopentolate 1 % eye drops INSTILL 1 DROP INTO LEFT EYE TWO TIMES A DAY DIRECTED cyclopentolate 1 % eye drops INSTILL 1 DROP INTO LEFT EYE TWO TIMES A DAY DIRECTED completed cyclopentolate hydrochloride 10 MG/ML Ophthalmic Solution ANNIKA ([facility]) prednisolone acetate 10 MG/ML Ophthalmic Suspension prednisolone acetate 1 % eye drops,suspension INSTILL 1 DROP INTO THE LEFT EYE DIRECTED EVERY HOUR prednisolone acetate 1 % eye drops,suspension INSTILL 1 DROP INTO THE LEFT EYE DIRECTED EVERY HOUR completed prednisolone acetate 10 MG/ML Ophthalmic Suspension ANNIKA ([facility]) Acetaminophen 325 MG / Hydrocodone Reema trate [...] hydrocodone bitartrate 5 MG Oral Tablet ANNIKA ([facility]) Fluconazole 150 MG Oral Tablet fluconazo le 150 mg tablet TAKE 1 TABLET BY MOUTH FOR 1 DOSE THEN 1 TABLET IN 3 DAYS fluconazole 150 mg tablet TAKE 1 TABLET BY MOUTH FOR 1 DOSE THEN 1 TABLET IN 3 DAYS completed fluconazole 150 MG Oral Tablet ANNIKA ([facility]) Triamcinolone Acetonide 1 MG/ML Topical Cream triamcinolone acetonide 0.1 % topical cream APPLY TO HANDS TWO TIMES A DAY FOR 14 DAYS AVOID CREAM TO FACE triamcinolone acetonide 0.1 % topical cream APPLY TO HANDS TWO TIMES A DAY FOR 14 DAYS AVOID CREAM TO FACE completed triamcinolone acetonide 1 MG/ML Topical Cream ANNIKA ([facility]) Atenolol 100 MG Oral Tablet atenolol 100 mg tablet TAKE ONE TABLET BY MOUTH DAILY atenolol 100 mg tablet TAKE ONE TABLET BY MOUTH DAILY completed atenolol 100 MG Oral Tablet ATHE NA ([facility]) Cephalexin 500 MG Oral Capsule cephalexi n 500 mg capsule TAKE ONE CAPSULE BY MOUTH TWICE A DAY DIRECTED FOR 10 DAYS cephalexin 500 mg capsule TAKE ONE CAPSULE BY MOUTH TWICE A DAY DIRECTED FOR 10 DAYS completed cephalexin 500 MG Oral Capsule ANNIKA ([facility]) Insurance Providers Payer name Policy type / Coverage type Policy ID Covered green party ID Covered green party's relationship to goldberg Policy Goldberg Plan Information [facility] [id number] SP [id number] Medicaid S [id number] S [id number] MEDICAID P [id number] S [id number] Managed Care - [employer] P [id number] S [id number] Medicaid S [id number] S [id number] Managed Care - [employer] P [id number] S [id number] [facility] Community Plan Commercial Self Managed Care - [employer] P [id number] S [id number] [facility] Comm Plan Medicaid F [id number] SELF [id number] [facility] MEDICAID [id number] Cynthia [id number] 22 Medicaid S [id number] S [id number] Managed Care - [employer] P [id number] S [id number] [facility] I [id number] Self [id number] [facility] [id number] SP [id number] Medicaid S [id number] S [id number] Managed Care - [employer] P [id number] S [id number] UNITED HEALTHCARE(MCAID) O [id number] S [id number] MEDICAID [id number] SP [id number] ANSI-Medicaid [id number] ANSI-Medicaid [id number] ANSI-Medicaid [id number] ANSI-Medicaid [id number] ANSI-Medicaid [id number] ANSI-Medicaid [id number] Medicaid S [id number] S [id number] Managed Care [facility] P [id number] S [id number] [facility] Health Maintenance Organization (HMO) [id number] Self [id number] [facility] Health Maintenance Organization (HMO) [id number] Self [id number] [facility] Health Maintenance Organization (HMO) [id number] Self [id number] [facility] Health Maintenance Organization (HMO) [id number] Self [id number] [facility] Health Maintenance Organization (HMO) [id number] Self [id number] Managed Replaced by [facility] P [id number] S [id number] MEDICAID M [id number] Self [id number] [facility] I [id number] Self [id number] Medicaid S [id number] S [id number] [facility] [id number] SP [id number] Managed Care - [facility] Community Plan P [id number] S [id number] SELF PAY ONLY [id number] SP [id number] Medicaid S [id number] S [id number] Managed Care [facility] Community Plan P [id number] S [id number] Problems, Conditions, and Diagnoses Code Display Name Description Problem Type Effective Dates Data Source(s) 320286098 Nausea Nausea Problem 03/11/2020 12:00:00 AM ES T ANNIKA ([facility]) [id number] Type 2 diabetes mellitus Type 2 Diabetes Mellitus Prob carrie 03/11/2020 12:00:00 AM EST ANNIKA ([facility]) F31.9 Bipolar disorder, unspecified Bipolar I Disorder, Current or most recent episode unspecified Condition 03/10/2020 12:00:00 AM EST [facility] ([facility]) F41.9 Anxiety disorder, unspecified Unspecified Anxiety Diso rder Condition 03/10/2020 12:00:00 AM EST [facility] ([facility]) [id number] Abnormal cytology findings Abnormal Cytology Findings Problem 12/11/2019 05:29:00 PM EDT ANNIKA ([facility]) [id number] Asthma Asthma Problem 12/11/2019 05:29:00 PM ED T ANNIKA ([facility]) 30505759 Hypertensive disorder Hypertensive Disorder Problem 12/11/2019 05:29:00 PM EDT NANIKA ([facility]) 25817790 Depressive disorder Depressive Disorder Problem 1 05:29:00 PM EDT ANNIKA ([facility]) 31337422 Hypothyroidism Hypothyroidism Problem 12/11/2019 05:29: 00 PM EDT DONGOLA ([facility]) 788.30 Urinary incontinence Urinary incontinence 07/03 02:29:56 PM EDT [facility] [id number] Clinical history and observation finding s Clinical History and Observation Findings Problem 07/04/2019 12:00:00 AM EDT ANNIKA ([facility]) L02.214 Cutaneous abscess of groin Cutaneous abscess of groin 03/04/2019 02:03:37 PM [facility] 250.80 Type 2 diabetes mellitus with hyperglyce bryan Type 2 diabetes mellitus with hyperglycemia 03/04/2019 02:03:37 PM [facility] [id number] Evaluation finding Evaluation Finding Problem 08/2019 12:00:00 AM [facility] 74561980 Abscess of groin Abscess of Groin Problem 03/04/2019 12 :00:00 AM EST [facility]) E11.9 Type 2 diabetes mellitus without complic ations Type 2 diabetes mellitus without complications 02/10/2019 06:49:44 PM [facility] Surgeries/Procedures Procedure Description Date Indications Data Source(s) MHC Telemed E/M Lvl 3--Est pt 03/10/2020 12:00:[address] [facility] ([facility]) MHC Telemed E/M Lvl 3--Est pt 03/10/2020 12:00:00 AM EST - 03/10/2020 12:00:00 AM EST [facility] ([facility]) MHC Telemed E/M Lvl 3--Est pt 07/30/2019 12:00:00 AM E DT [facility] ([facility]) MHC Telemed E/M Lvl 3--Est pt 07/30/2019 12:00:00 AM EDT - 07/30/2019 12:00:00 AM EDT [facility] ([facility]) [id number]"Psychotherapy 06/20/2019 12:00:00 AM EDT [facility] ([facility]) [id number]"Psychotherapy 0 12:00:00 AM EDT - 06/20/2019 12:00:00 AM EDT [facility] ([facility]) MHC Telemed E/M Lvl 3--Est pt 05/28/2019 12:00:00 AM E DT [facility] ([facility]) MHC Telemed E/M Lvl 3--Est pt 05/28/2019 12:00:00 AM EDT - 05/28/2019 12:00:00 AM EDT [facility] ([facility]) MHC Telemed E/M Lvl 3--Est pt 05/22/2019 12:00:00 AM E DT [facility] ([facility]) MHC Telemed E/M Lvl 3--Est pt 05/22/2019 12:00:00 AM EDT - 05/22/2019 12:00:00 AM EDT [facility] ([facility]) Brief Individual Psychotherapy - 30 min 04/14/2019 12: 00:00 AM EST [facility] ([facility]) Brief Individual Psychotherapy - 30 min 04/14/2019 12:00:00 AM EST - 04/14/2019 12:00:00 AM EST [facility] ([facility]) I & D Abscess Simple 03/25/2019 12:00:00 AM EST MEDENT ([facility], ) OFFICE OUTPATIENT VISIT 15 MINUTES 02/20/2019 12:00:00 AM EST [facility] ([facility]) OFFICE OUTPATIENT VISIT 15 MINUTES 02/20 12:00:00 AM EST - 02/20/2019 12:00:00 AM EST [facility] ([facility]) INCISION & DRAINAGE ABSCESS SIMPLE/SINGLE 02/13/2019 1 2:00:00 AM EST MEDENT ([facility]) Results ID Date Data Source [id number] 02/27/2020 04:59:00 AM EST BRIGITTE Name Value Range Interpretation Code Description Data Kate rce(s) Supporting Document(s) SARS coronavirus 2 RNA [Presence] in Res piratory specimen by SARA with probe detection NYSDOH This lab was ordered by [facility] a nd reported by [facility]. ID Date Data Source [id number] 07/04/2019 02:07:28 PM EDT [facility] Measurements & CalculationsHeight: 64.50 inches [...] clinicHave you seen a dentist? Yes - [facility] performed by: Jamarcus Lopez MA, [...] during this visit, including review of any ovbv-auu-eskmvfn medications, herbal therapies, and/or supplements.Allergy ReviewAllergy List [...] incontinence (ICD-788.30) (ICD10- R32)Assessment not SavedUrinary incontinence (PAP55-X35): refer to urologyMedications:CEFUROXIME AXETIL 500 MG ORAL [...] ElectronicAllergies:No Known Allergies (updated 04/29/2019) Orders:Surgical Consult [CPT-94175] Adult - Ofc Vst, EST, Level III [CPT-74971] Urology Consult [CPT-74392] Medications:CEFUROXIME AXETIL 500 MG ORAL TABLET (CEFUROXIME AXETIL) one tab po BID #30[Tablet] x 0 Route:ORAL Entered and Authorized by: Venkatesh Valentine DO Method used: Electronically to [facility] ([facility]) [address] [place] [address] Note to Pharmacy: Route: ORAL; RxID: [id number] signed by Venkatesh Valentine DO on 07/04/2019 [...] rce(s) Supporting Document(s) ID Date Data Source [id number] 04/29/2019 10:10:00 AM [facility] Name Value Range Interpretation Code Description Data Kate rce(s) Supporting Document(s) HGBA1C 9.1 % N [facility] ID Date Data Source [id number] 04/29/2019 09:35:22 AM [facility] Measurements & CalculationsHeight: 64.50 inches 163.83 [...] clinicHave you seen a dentist? Yes - [facility]Rate Your HealthIn general, would you say [...] during this visit, including review of any fsbz-exv-jkgwvuo medications, herbal therapies, and/or supplements.Allergy ReviewAllergy List [...] Problems:Assessed:Type 2 diabetes mellitus with hyperglycemia (ICD-250.80) (HGE39-Q90.65) Assessment: Instructions: Recommend low carbohydrate diet: reduce [...] call with any concerns.Cutaneous abscess of groin (TPU84-H39.214) Assessment: Instructions: Resolved, signed for records today from your surgeon.HYPERTENSION (ICD-401.9) (BMV22-I45) Assessment: Instructions: Appears at goal today. Recommend reduced salt intake, cut back on caffeine and alcohol, increase physical activity. We reviewed the fci risks associated with uncontrolled high blood pressure, [...] alcohol, increase physical activity. 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 associated with uncontrolled high blood pressure, [...] ORAL TABLETAllergies:No Known Allergies (updated 04/29/2019) Orders:HgBA1c [CPT-36822] 69615 - Venipuncture [CPT-77571] Adult - Ofc Vst, EST, Level III [CPT-18517] Follow-Up Return to clinic: in 90 days for follow upAdditional Follow-Up: T2DM, HTNClinical Visit Summary Completed]Labs In-House Blood TestsDate/Time Collected: April 29, 2019 10:13 AMTest Result Reference Range Normal ValueComments: labs done in office, taken from right ac, tolerated well.Josefina Díaz, April 29, 2019 10:13 AM Name Value Range Interpretation Code Description Data Kate rce(s) Supporting Document(s) ID Date Data Source [id number] 03/04/2019 01:02:54 PM EST [facility] Measurements & CalculationsHeight: 64.50 inches [...] at this appointment. Pt was admitted to [facility] on 02/21/19 for abscesses of the groin. During admission, patient was brought to the OR on 02/21/19 for an I&D by Dr. Vasquez. Discharged 02/26/2019. Discharge summary reviewed, recommendation was for 10 days total of Augmentin, intended to be started on 02/26/2019, and dressing changes every 2 days. Pt reports she is unable to perform dressing changes independently. 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 FairAssessment & Plan Problems:Added: Cutaneous abscess of groin (QUP90-S70.214) Assessment: Instructions: Wound care and dressing changes provided in the office today. Referral generated for general surgical outpatient followup as well as home care for dressing changes. ER precautions for worsening symptoms. Appointment given here for 03/06/2019 for dressing change if home care is unable to have a visit by 03/06/2019.Type 2 diabetes mellitus with hyperglycemia (ICD-250.80) (XIN90-Q19.65) Assessment: Instructions: Reiterated the importance of diabetic control with wound healing.Cutaneous abscess of groin (PAK61-Y81.214) Assessment: Time spent 15 minutes, in addition [...] TABLETAllergies:No Known Allergies (updated 03/04/2019) Orders:Surgical Consult [CPT-56464] Other Referral [[id number]] Adult - Ofc Vst, EST, Level IV [CPT-68490] Follow-Up Return to clinic: in 2-3 days for follow upAdditional Follow-Up: wound care, 2 weeks (or soonest available) diabetes follow-up with Dr. Gerardlinical Visit Summary Completed Name Value Range Interpretation Code Description Data Kate rce(s) Supporting Document(s) ID Date Data Source [id number] 02/13/2019 12:40:00 PM EST MEDENT ([facility]) Name Value Range Interpretation Code Description Data Kate rce(s) Supporting Document(s) Bacteria identified in Wound by Culture Laboratory test result MEDENT ([facility], [facility]) <content>FULL REPORT IN LAB NOTES (eCW a [...]
<content>CLIDAMYCIN SENSITIVE.</content>
<content></content> ID Date Data Source [id number] 02/07/2019 09:28:35 AM [facility] Measurements & CalculationsHeight: 64.50 inches 163.83 [...] PPHave you seen a dentist? Yes - [facility] Intake performed by: Akua Kramer MA, [...] during this visit, including review of any ewet-nbi-fmvkpsk medications, herbal therapies, and/or supplements.Allergy ReviewAllergy List [...] Problems:Added: Type 2 diabetes mellitus without complications (RSD18-N10.9) Assessment: Instructions: Counseled on 1800 jagdish ADA, low cholesterol, low salt diets,exercise. Counseled on GLP-1 medication, risks and benefits. Patient has no family hisotry of medullary thyroid cancer/ MEN syndromes and wishes to proceed. Patient education and training completed/ scheduled. All questions answeredAssessed:Perirectal abscess (ICD-566) (SZL07-H60.1) Assessment: Instructions: resolvedAcute vaginitis (ICD-616.10) (PEF06-D88.0) Assessment: Instructions: Counseled patient on all diagnoses/ treatments. Return to clinic/ ER for any worsening symptoms or concernsMedication issuedAssessment not SavedScreening for malignant neoplasm of breast (ANE01-C23.39): Patient Instructions/Care Plan: Type 2 diabetes mellitus [...] TABLET-po bedtime prnRefilled:TRULICITY 1.5 MG/0.5ML SUBCUTANEOUS SOLUTION YFM-JQSKEJNK-uhiasy 1.5 mg SQ weekly Qty: 4[Prefilled Pen Syrnge] Refills: 5 Method: ElectronicOXYBUTYNIN CHLORIDE 5 MG ORAL TABLET-1 pill po bid Qty: 60[Tablet] Refills: 5 Method: ElectronicMETFORMIN HCL 1000 MG ORAL TABLET-1 pill po bid Qty: 60[Tablet] Refills: 5 Method: ElectronicPEPCID 40 MG ORAL TABLET-1 tab po daily Qty: 30[Tablet] Refills: 5 Method: ElectronicNew Presc ription:Zumeo.comTOUCH ULTRA 2 W/DEVICE KIT-uad Qty: 1[Kit] Refills: [...] TRULICITY 0.75 MG/0.5ML SUBCUTANEOUS SOLUTION PEN-INJECTOR Qty: [id number] Refills: 4[Prefilled Pen Syrnge] To: TRULICITY 1.5 MG/0.5ML SUBCUTANEOUS SOLUTION BCA-OFZYQPSX-radavu 1.5 mg SQ weekly Qty: 4[Prefilled Pen Syrnge] Refills: 5Allergies:No Known Allergies (updated 06/18/2017) Orders:COMP METABOLIC PANEL [CPT-78060] HgBA1c [CPT-49978] LIPID PANEL [CPT-02301] TSH [CPT-84114] T-4 free [CPT-52476] Microalbumin urine [N6957V,H348905] Adult - Ofc Vst, EST, Level IV [CPT-12933] Follow-Up Return to clinic: in 90 days [...] leted Unknown if ever smoked [facility] ([facility]) Smoking 07/30/2019 12:00:00 AM EDT Unknown if ever smoked comp leted Unknown if ever smoked [facility] ([facility]) Smoking 06/20/2019 12:00:00 AM EDT Unknown if ever smoked comp leted Unknown if ever smoked [facility] ([facility]) Smoking 05/28/2019 12:00:00 AM EDT Unknown if ever smoked comp leted Unknown if ever smoked [facility] ([facility]) Smoking 05/22/2019 12:00:00 AM EDT Unknown if ever smoked comp leted Unknown if ever smoked [facility] ([facility]) Smoking 04/14/2019 12:00:00 AM EST Unknown if ever smoked comp leted Unknown if ever smoked [facility] ([facility]) Smoking 02/20/2019 12:00:00 AM EST Unknown if ever smoked comp leted Unknown if ever smoked [facility] ([facility]) Vital Signs ID Date Data Source UNK Name Value Range Interpretation Code Description Data Source(s) Body weight 2932 [oz_av] 2932 [oz_av] ANNIKA ([facility]) Systolic blood pressure 123 mm[Hg] 123 mm[Hg] A THENA ([facility]) Body mass index (BMI) [Ratio] 31 kg/m2 31 kg/ m2 ANNIKA ([facility]) Body height 64.5 [in_i] 64.5 [in_i] ANNIKA ([facility]) Diastolic blood pressure 91 mm[Hg] 91 mm[Hg] ANNIKA ([facility]) Body height 0.00 in Normal (applies to non-numeric resu lts) 0.00 in [facility] ([facility]) Body weight Measured 212.00 lbs Normal (applies to n on-numeric results) 212.00 lbs [facility] ([facility]) Body mass index (BMI) [Ratio] 0.00 kg/m2 No rmal (applies to non-numeric results) 0.00 kg/m2 [facility] ([facility]) Systolic blood pressure 0 mm[Hg] Normal (applies t o non-numeric results) 0 mm[Hg] [facility]umed[facility] ([facility]) Diastolic blood pressure 0 mm[Hg] Normal (applies to non-numeric results) 0 mm[Hg] [facility] ([facility]) Systolic blood pressure 136 mm[Hg] 136 mm[Hg] M EDENT ([facility], [facility]) Diastolic blood pressure 94 mm[Hg] 94 mm[Hg] MEDENT ([facility]) Heart rate 101 /min 101 /min MED[facility] ([facility]) Respiratory rate 12 /min 12 /min [facility]) Oxygen saturation in Arterial blood by Pulse oximetry 98 % 98 % MEDENT ([facility]) Body weight 202.00 [lb_av] 202.00 [lb_av] MEDEN T ([facility]) Body height 65 [in_i] 65 [in_i] [facility] 5'5" Body mass index (BMI) [Ratio] 33.6 kg/m2 33.6 k g/m2 MED[facility] ([facility], [facility]) Systolic blood pressure 137 mm[Hg] 137 mm[Hg] M EDENT ([facility], [facility]) Diastolic blood pressure 92 mm[Hg] 92 mm[Hg] MED[facility] ([facility]) Heart rate 80 /min 80 /min MED[facility] ([facility]) Oxygen saturation in Arterial blood by Pulse oximetry 98 % 98 % [facility] ([facility], [facility]) Body temperature 97.9 [degF] 97.9 [degF] MEDENT ([facility], [facility]) Body weight 202.00 [lb_av] 202.00 [lb_av] MEDEN T ([facility], [facility]) Body height 65 [in_i] 65 [in_i] MEDENT ([facility], [facility]) 5'5" Body mass index (BMI) [Ratio] 33.6 kg/m2 33.6 k g/m2 MED[facility] ([facility], [facility]) Body height 0.00 in Normal (applies to non-numeric resu lts) 0.00 in [facility] ([facility]) Body weight Measured 0.00 lbs Normal (applies to n on-numeric results) 0.00 lbs [facility] ([facility]) Body mass index (BMI) [Ratio] 0.00 kg/m2 No rmal (applies to non-numeric results) 0.00 kg/m2 [facility] ([facility]) Systolic blood pressure 0 mm[Hg] Normal (applies t o non-numeric results) 0 mm[Hg] [facility] ([facility]) Diastolic blood pressure 0 mm[Hg] Normal (applies to non-numeric results) 0 mm[Hg] [facility] ([facility]) Systolic blood pressure 118 mm[Hg] 118 mm[Hg] M EDENT ([facility], [facility]) Diastolic blood pressure 86 mm[Hg] 86 mm[Hg] MEDENT ([facility], [facility]) Heart rate 69 /min 69 /min [facility] ([facility]) Respiratory rate 17 /min 17 /min [facility] ( [facility], [facility]) Oxygen saturation in Arterial blood by Pulse oximetry 96 % 96 % [facility] ([facility]) Body temperature 98.7 [degF] 98.7 [degF] MEDENT ([facility], [facility]) Body weight 213.00 [lb_av] 213.00 [lb_av] MEDEN T ([facility], [facility]) Body height 65 [in_i] 65 [in_i] MEDENT ([facility], [facility]) 5'5" Body mass index (BMI) [Ratio] 35.4 kg/m2 35.4 k g/m2 MED[facility] ([facility], [facility]) Systolic blood pressure 117 mm[Hg] 117 mm[Hg] M EDENT ([facility]) Diastolic blood pressure 79 mm[Hg] 79 mm[Hg] MEDENT ([facility]) Body height 65 [in_i] 65 [in_i] MEDENT ([facility]) 5'5" Body weight 215.25 [lb_av] 215.25 [lb_av] MEDEN T ([facility]) Body mass index (BMI) [Ratio] 35.8 kg/m2 35.8 k g/m2 MEDENT ([facility]) Body weight 97.637 kg 97.637 kg MED[facility] ([facility]) Body weight 3570.08 [oz_av] 3570.08 [oz_av] ATH ALBER ([facility]) Systolic blood pressure 107 mm[Hg] 107 mm[Hg] A THENA ([facility]) Body height 64.5 [in_i] 64.5 [in_i] ANNIKA ([facility]) Diastolic blood pressure 77 mm[Hg] 77 mm[Hg] ANNIKA ([facility]) Body mass index (BMI) [Ratio] 0.00 kg/m2 No rmal (applies to non-numeric results) 0.00 kg/m2 [facility] ([facility]) Systolic blood pressure 0 mm[Hg] Normal (applies t o non-numeric results) 0 mm[Hg] [facility] ([facility]) Diastolic blood pressure 0 mm[Hg] Normal (applies to non-numeric results) 0 mm[Hg] [facility] ([facility]) Body height 0.00 in Normal (applies to non-numeric resu lts) [facility] Body weight Measured 0.00 lbs Normal (applies to n on-numeric results) 0.00 lbs [facility] Body weight 3440 [oz_av] 3440 [oz_av] ANNIKA ([facility]) Systolic blood pressure 124 mm[Hg] 124 mm[Hg] A THEN ([facility]) Body height 64.5 [in_i] 64.5 [in_i] ANNIKA ([facility]) Diastolic blood pressure 83 mm[Hg] 83 mm[Hg] ANNIKA ([facility]) Systolic blood pressure 144 mm[Hg] 144 mm[Hg] M EDENT ([facility], ) Diastolic blood pressure 92 mm[Hg] 92 mm[Hg] [facility], ) Heart rate 71 /min 71 /min [facility] ([facility], ) Body height 65 [in_i] 65 [in_i] [facility] ([facility], ) 5'5" Body weight 216.00 [lb_av] 216.00 [lb_av] MEDEN T ([facility], ) Body mass index (BMI) [Ratio] 35.9 kg/m2 35.9 k g/m2 [facility], ) Body weight 97.978 kg 97.978 kg [facility] ([facility], ) Systolic blood pressure 159 mm[Hg] 159 mm[Hg] M EDENT ([facility], ) Diastolic blood pressure 103 mm[Hg] 103 mm[Hg] [facility] ([facility], ) Body height 65 [in_i] 65 [in_i] MEDENT ([facility], ) 5'5" Body weight 218.00 [lb_av] 218.00 [lb_av] [facility] T ([facility] [facility], ) Body mass index (BMI) [Ratio] 36.3 kg/m2 36.3 k g/m2 [facility] ([facility], ) Body weight 98.885 kg 98.885 kg [facility] ([facility], ) Body weight 3408 [oz_av] 3408 [oz_av] ANNIKA ([facility]) Systolic blood pressure 124 mm[Hg] 124 mm[Hg] A THENA ([facility]) Body height 64.5 [in_i] 64.5 [in_i] ANNIKA ([facility]) Diastolic blood pressure 86 mm[Hg] 86 mm[Hg] ANNIKA ([facility]) Systolic blood pressure 126 mm[Hg] 126 mm[Hg] M EDENT ([facility], [facility]) Diastolic blood pressure 84 mm[Hg] 84 mm[Hg] MEDENT ([facility], [facility]) Heart rate 103 /min 103 /min MEDENT ([facility], [facility]) Oxygen saturation in Arterial blood by Pulse oximetry 97 % 97 % MEDENT ([facility], [facility]) Body temperature 97.6 [degF] 97.6 [degF] MEDENT ([facility], [facility]) Body weight 214.00 [lb_av] 214.00 [lb_av] MEDEN T ([facility], [facility]) Body height 65 [in_i] 65 [in_i] MEDENT ([facility], [facility]) 5'5" Body mass index (BMI) [Ratio] 35.6 kg/m2 35.6 k g/m2 MEDENT ([facility], [facility]) Systolic blood pressure 123 mm[Hg] 123 mm[Hg] M EDENT ([facility], [facility]) Diastolic blood pressure 77 mm[Hg] 77 mm[Hg] MEDENT ([facility], [facility]) Heart rate 103 /min 103 /min MEDENT ([facility], [facility]) Respiratory rate 12 /min 12 /min MEDENT ( [facility], [facility]) Oxygen saturation in Arterial blood by Pulse oximetry 96 % 96 % MEDENT ([facility], [facility]) Body temperature 98.8 [degF] 98.8 [degF] MEDENT ([facility], [facility]) Body weight 214.00 [lb_av] 214.00 [lb_av] MEDEN T ([facility], [facility]) Body height 65 [in_i] 65 [in_i] MEDENT ([facility], [facility]) 5'5" Body mass index (BMI) [Ratio] 35.6 kg/m2 35.6 k g/m2 MEDENT ([facility], [facility]) Body weight 3424 [oz_av] 3424 [oz_av] ANNIKA ([facility]) Systolic blood pressure 108 mm[Hg] 108 mm[Hg] Sita REICH ([facility]) Body height 64.5 [in_i] 64.5 [in_i] ANNIKA ([facility]) Diastolic blood pressure 75 mm[Hg] 75 mm[Hg] ANNIKA ([facility]) Patient Treatment Plan of Care Planned Activity Planned Date Details Description Data Source (s) valacyclovir 1000 MG Oral Tablet ANNIKA ([facility]) 0.5 ML dulaglutide 1.5 MG/ML [facility]-Injector [facility]] [facility] Hydrochlorothiazide 25 MG / Triamterene 37.5 MG Oral Capsule [facility] Triamcinolone Acetonide 1 MG/ML Topical Cream [facility] tizanidine 4 MG Oral Tablet [facility] terconazole 4 MG/ML Vaginal Cream [facility] Prednisone 10 MG Oral Tablet ANNIKA ([facility]) prednisolone acetate 10 MG/ML Ophthalmic Suspension ANNIKA ([facility]) OneTouch Ultra2 Meter USE DIRECTED [facility] OneTouch Ultra Blue Test Strip TEST FOUR TIMES A DAY [facility]) OneTouch Delica Plus Lancet 33 gauge TEST FOUR TIMES A DAY [facility] Metformin hydrochloride 1000 MG Oral Tablet [facility] Ketorolac Tromethamine 10 MG Oral Tablet [facility] Acetaminophen 325 MG / Hydrocodone Bitartrate 5 MG Oral Tablet ANNIKA ([facility]) chlorhexidine gluconate 40 MG/ML Medicated Liquid Soap [Hibiclens] [facility] Fluconazole 150 MG Oral Tablet [facility] Fluconazole 100 MG Oral Tablet [facility] Fenofibrate 160 MG Oral Tablet [facility] Deblitane 0.35 mg tablet TAKE ONE TABLET BY MOUTH EVERY DAY [facility] Cyclopentolate hydrochloride 10 MG/ML Ophthalmic Solution [facility] Cyclobenzaprine hydrochloride 10 MG Oral Tablet ANNIKA ([facility]) Cholecalciferol 2000 UNT Oral Tablet ANNIKA ([facility]) Cephalexin 500 MG Oral Capsule ANNIKA ([facility]) Cefuroxime 500 MG Oral Tablet ANNIKA ([facility]) buspirone hydrochloride 15 MG Oral Tablet ANNIKA ([facility]) Amoxicillin 875 MG / Clavulanate 125 MG Oral Tablet [Augmentin] ANNIKA ([facility]) atorvastatin 10 MG Oral Tablet ANNIKA ([facility]) Atenolol 100 MG Oral Tablet ANNIKA ([facility]) aripiprazole 10 MG Oral Tablet ANNIKA ([facility]) Amoxicillin 875 MG Oral Tablet ANNIKA ([facility]) Amoxicillin 500 MG Oral Capsule ANNIKA ([facility])
[2020-03-29] MEDS ORDERED: ACETAMINOPHEN TAB 650MG DOSE (2X325MG) PO PRN (22:30)
[2020-03-29] MEDS ORDERED: DEXTROSE 50% 50 ML SYRINGE IV PRN (22:30)
[2020-03-29] MEDS ORDERED: GLUCOSE 4GM CHEW TABLET PO PRN (22:30)
[2020-03-29] MEDS ORDERED: traZODone 50 MG TAB PO PRN (22:30)
[2020-03-29] MEDS ORDERED: GLUCAGON INJ 1MG VIAL SC PRN (22:30)
[2020-03-29] MEDS ORDERED: lisinopriL 40 MG TAB PO SCH (23:15)
[2020-03-30 00:17] LABS: NT-PRO BNP 286 PG/ML (<125)
--- NOTE | 2020-03-30 01:56 | HPEPDOC ---
[facility] Medical History & Physical Date of Admission Mar 30, 2020 Date of Service: Mar 30, 2020 Attending Physician: KANNAN DASH MD History and Physical CHIEF COMPLAINT: High Blood pressure HISTORY OF PRESENT ILLNESS: Patient is a 49 year old female with a past medical history significant for hypertension, bipolar disorder, diabetes mellitus type 2, who presented to the [facility] emergency department with chief complaint of high blood pressure. Patient stated she was at her doctor's office and he had taken her blood pressure and noted that he was very high and sent her to the emergency department. The patient herself denies any chest pain or shortness of breath, chest any headaches or changes in vision. Patient states that on 02/27/2020. She had presented to [facility] with altered mental status and was found to have acute metabolic encephalopathy secondary to serotonin syndrome. Patient at that time was taking Latuda as well as several other medications. During that admission, she was intubated due to inability to every from her altered mental status. Since her discharge she has been taken off of Latuda. On presentation to the emergency department the patient was vitally stable. She did have an elevated blood pressure of 194\110. She received CT imaging of her head and a chest x-ray which was otherwise unremarkable. Hospitalist service was consulted and the patient was admitted for further evaluation and management of severe asymptomatic hypertension\hypertensive urgency. PAST MEDICAL HISTORY: 1. Diabetes Mellitus type 2 2. Diabetic Neuropathy 3. Depression/Anxiety 4. Bipolar Disorder 5. Obstructive Sleep Apnea 6. Hypertension 7. Hyperlipidemia 8. GERD 9. Obesity PAST SURGICAL HISTORY: 1. Cholecystectomy 2. Vaginal Delivery x 3 3. Left Arm Surgery 4. Left Humerus with plate and screws SOCIAL HISTORY: Lives with her mom. She is a former smoker. She quit within the past year. Denies IV or illicit drug use FAMILY HISTORY: Father with diabetes mellitus type 2. Mother with diabetes mellitus type 2 and chronic obstructive pulmonary disease. Brother with Down's syndrome. Sister with history of blood clots. ALLERGIES: Please see below. REVIEW OF SYSTEMS: CONSTITUTIONAL: Denies fevers, chills, unintentional weight loss or weight gain. Denies night sweats. HEENT:. Denies change in vision. Denies dysphagia or odynophagia. CARDIOVASCULAR: Denies chest pain, palpitations or feelings of the heart racing denies chest pressure. RESPIRATORY:. Denies short of breath, cough or wheezing. GASTROINTESTINAL:. Denies abdominal pain. Denies nausea, vomiting, diarrhea or constipation. GENITOURINARY:. Denies dysuria, increased frequency. Denies urgency. SKIN: Denies any rashes or lesions. MUSCULOSKELETAL:. Admits to bilateral leg weakness ever since her previous hospitalization. NEUROLOGICAL:. Denies any changes in her gait, speech's from baseline. PSYCHIATRIC:. Admits to history depression, anxiety and bipolar disorder. ENDOCRINE:. Denies heat intolerance or cold intolerance. Admits to history of diabetes mellitus type 2. HEMATOLOGIC/LYMPHATIC: Denies history of easy bruising or bleeding. Denies history of DVT or pulmonary embolism. HOME MEDICATIONS: Please see below. PHYSICAL EXAMINATION: VITAL SIGNS: Temperature 97.9, pulse 89, respiratory rate 18, blood pressure 170\106, pulse oximetry 96 % on room air. GENERAL APPEARANCE: He is Awake, alert and oriented. . She does not appear in acute distress. she is lying in stretcher comfortably. HEENT: Atraumatic, normocephalic. Eyes nonicteric. Trachea is midline. mucous me mbers are pink and moist CARDIOVASCULAR: Normal S1, S2. Regular rate and rhythm. No clicks rubs or m urmurs. LUNGS: Clear vesicular breath sounds bilaterally. No wheezes rhonchi or rales. Symmetric chest expansion. Good respiratory effort.. ABDOMEN:. Soft. Nondistended. Obese. Nontender. No rebound tenderness or guarding. Normoactive bowel sounds throughout. EXTREMITIES: No Edema. Full equal pulses in bilateral upper and lower extremities.. NEUROLOGICAL: No focal neurological deficits PSYCHIATRIC: Mood affect appear appropriate. LABORATORY DATA: See below. IMAGING: THIS REPORT CONTAINS FINDINGS THAT MAY BE CRITICAL TO PATIENT CARE. The findings were verbally communicated via telephone conference with VENKATESH KING at 7:07 PM EST on 03/29/2020. The findings were acknowledged and understood. Electronically signed by: Nabil Smith On 03/29/2020 19:07:37 PM DD: NABIL SMITH MD 03/29/20 1858 DT: COURTNEY 03/29/201906 DS: SANJIV 03/29/201906 PROCEDURE INFORMATION: Exam: CT Head Without Contrast Exam date and time: 03/29/2020 6:58 PM Age: 49 years old Clinical indication: Pain; Headache; Additional info: CVA TECHNIQUE: Imaging protocol: Computed tomography of the head without contrast. Radiation optimization: All CT scans at this facility use at least one of these dose optimization techniques: automated exposure control; mA and/or kV adjustment per patient size (includes targeted exams where dose is matched to clinical indication); or iterative reconstruction. Other technique: STROKE PROTOCOL was implemented. COMPARISON: CT Head without contrast 03/01/2020 12:52 AM FINDINGS: Brain: There is mild volume loss.There is no evidence of infarct, bolton-white matter differentiation is preserved. There is no hemorrhage or extra-axial collection. There is no mass. No evidence of subarachnoid hemorrhage. No evidence of cerebral edema. Cerebral ventricles: No ventriculomegaly. Bones/joints: Unremarkable. No acute fracture. Paranasal sinuses: Visualized sinuses are unremarkable. No fluid levels. Mastoid air cells: Visualized mastoid air cells are well aerated. Soft tissues: Unremarkable. IMPRESSION: No intracranial lesion or injury and no change from prior scan. ASSESSMENT: ASPECTS ([facility] Stroke Program Early CT Score) is 10. Electronically signed by: Nabil Smith On 03/29/2020 19:04:26 PM PROCEDURE INFORMATION: Exam: XR Chest, 1 View Exam date and time: 03/29/2020 8:18 PM Age: 49 years old Clinical indication: Other: ? Chf; Additional info: HTN eval for chf TECHNIQUE: Imaging protocol: XR of the chest Views: 1 view. COMPARISON: CR PORTABLE CHEST X-RAY 03/02/2020 10:34 AM FINDINGS: Lungs: Unremarkable. No consolidation. Pleural spaces: Unremarkable. No pleural effusion. No pneumothorax. Heart/Mediastinum: Unremarkable. No cardiomegaly. No evidence of CHF. Bones/joints: Postoperative partly visible within the left humerus. No acute fracture. IMPRESSION: No acute findings. Electronically signed by: Nabil Smith On 03/29/2020 20:40:06 PM MICROBIOLOGY: Please see below. ASSESSMENT: Patient is a 49-year-old female with a past medical history significant for bipolar disorder, hypertension, sleep apnea, obesity presented to the [facility] emergency department with a complaint of elevated blood pressure. In the emergency over the patient was found found to have a blood pressure of 194/110 and was admitted for severe asymptomatic hypertension. . PLAN: 1. Severe asymptomatic hypertension/hypertensive urgency -Patient presented with an initial blood pressure of 194\110. She was and remains asymptomatic. She denied any changes or vision changes in gait. She denies any chest pain. She denies any shortness of breath. Chest x-ray was negative for any pulmonary edema and CT of the head was negative for any acute pathology. Patient states she does take her blood pressure at home and frequently has her systolic blood pressure in the 200s. -Patient likely has a combination of both essential and secondary hypertension. She is obese and does have obstructive sleep apnea, although she does not use a CPAP. -Patient takes amlodipine 10 mg, lisinopril 20 mg daily. I will continue her amlodipine. Will increase her lisinopril 40 mg daily. Spironolactone has been added as well. -Patient will likely be discharged with follow-up with her PCP for blood pressure checks and titration of her medications. 2. Diabetes mellitus type 2 -Patient has a history of diabetes mellitus type 2. Interestingly, she is only on a long-acting insulin. Her last A1c was 9.1 in April 2019. Ideally she should be on a non-insulin regimen as well such as metformin plus or minus a GLP-1 agonist. Given her obesity, she may benefit from a medication such as Ozempic which is associated with weight loss. Recommend following up with her primary care physician for discussion on starting medication such as a GLP-1 agonist or SGLT2 inhibitor. These medications have shown to have cardiovascular benefits as well -Levemir 20 units daily. Sliding scale coverage ACHS 3. Hypokalemia -Mildly hypokalemic at 3.1. Give oral potassium in ED. Will continue to trend and replete prn 4. Hypothyroidism -Continue Levothyroxine 5. Bipolar Disorder -Continue Paxil, Trazodone, and Buspar 6. DVT Prophylaxis -Lovenox Vital Signs Vital Signs Date Time Temp Pulse Resp B/P (MAP) Pulse Ox O2 Delivery O2 Flow Rate FiO2 03/30/20 00:03 90 18 182/95 (124) 97 Room Air 03/29/20 17:28 97.9 Laboratory Data Labs 24H Laboratory Tests 2 03/29/20 19:27: Prothrombin Time 13.1, Prothromb Time International Ratio 0.97, Activated Partial Thromboplast Time 20.9L, Anion Gap 8, Glomerular Filtration Rate > 60.0, Calcium Level 10.4H, Total Bilirubin 0.6, Direct Bilirubin 0.1, Aspartate Amino Transf (AST/SGOT) 11, Alanine Aminotransferase (ALT/SGPT) 16, Alkaline Phosph atase 136H, Total Creatine Kinase 36, Creatine Kinase MB < 1.0, Creatine Kinase MB Relative Index 2.78, Troponin I < 0.02, AC-Pji-E-Type Natriuretic Peptide 286H, Total Protein 7.1, Albumin 2.8L, Albumin/Globulin Ratio 0.7L, Lipase 60L, Thyroid Stimulating Hormone (TSH) 8.920H, Free Thyroxine 1.21 03/29/20 19:36: SARS Antigen (LFIA) NEGATIVE 03/29/20 20:17: Immature Granulocyte % (Auto) 0.3, Neutrophils (%) (Auto) 54.4, Lymphocytes (%) (Auto) 35.5, Monocytes (%) (Auto) 5.0, Eosinophils (%) (Auto) 3.8H, Basophils (%) (Auto) 1.0, Neutrophils # (Auto) 3.9, Lymphocytes # (Auto) 2.6, Monocytes # (Auto) 0.4, Eosinophils # (Auto) 0.3, Basophils # (Auto) 0.1, Nucleated Red Blood Cells % (auto) 0.0 03/29/20 23:01: Bedside Glucose (Misc Panel) 220H CBC/BMP Laboratory Tests 03/29/20 19:27 03/29/20 20:17 Microbiology Microbiology 03/29/20 Respiratory Virus Panel (PCR) ([facility]) - Final, Complete Home Medications Scheduled Amlodipine Besylate (Amlodipine Besylate) 10 Mg Tablet, 10 MG PO DAILY Buspirone HCl (Buspirone HCl) 30 Mg Tablet, 30 MG PO BID Insulin Glargine,Hum.rec.anlog (Basaglar Kwikpen U-100) 100 Unit/1 Ml Insuln.pen, 25 UNIT SC QHS Levothyroxine Sodium (Synthroid) 150 Mcg Tablet, 150 MCG PO DAILY Lisinopril (Lisinopril) 20 Mg Tablet, 20 MG PO QHS Paroxetine HCl (Paroxetine) 40 Mg Tablet, 40 MG PO DAILY Scheduled PRN Trazodone HCl (Trazodone HCl) 50 Mg Tablet, 100 MG PO QHS PRN for INSOMNIA Allergies Coded Allergies: No Known Allergies (Unverified , 02/20/19) A-FIB/CHADSVASC A-FIB History Current/History of A-Fib/PAF?: No GME ATTESTATION GME ATTESTATION My faculty preceptor for this patient encounter was physically present during the encounter and was fully available. All aspects of the patient interview, examination, medical decision making process, and medical care plan development were reviewed and approved by the faculty preceptor. The faculty preceptor is aware and concurs with the plan as stated in the body of this note and will attest to such by his/her cosignature. ATTENDING NOTE Time of service 10:30 PM Ms. Gill is a 49-year-old smoker with, a history of IDDM with neuropathy, HTN, HERLINDA, hypothyroidism, depression, anxiety, dyslipidemia, and obesity who presented with complaints of high blood pressure at home and vomiting. She is concerned that she was not retaining her blood pressure meds. Therefore, she came to the hospital for evaluation. Shortly after receiving IV labetalol, her blood pressure dropped from 194/110 to 166/94; she'll be admitted overnight under observation. We will add spironolactone because of its anti-androgenic and diuretic effects to her current anti-hypertensive regimen. 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 Verdugo's H&P TONE VERDUGO DO Mar 30, 2020 01:56 KANNAN DASH MD Mar 30, 2020 06:43
[2020-03-30] MEDS ORDERED: LEVOTHYROXINE 150MCG TABLET (0.15MG) PO SCH (06:00)
[2020-03-30] MEDS ORDERED: ALDA50TA2 PO (06:45)
[2020-03-30 07:09] LABS: HEMATOCRIT 42.4 % (36.0-47.0); HEMOGLOBIN 14.7 g/dl (12.0-15.5); MEAN CORPUSCULAR HEMOGLOBIN 30.1 pg (27.0-33.0); MEAN CORPUSCULAR HGB CONC 34.7 g/dl (32.0-36.5); MEAN CORPUSCULAR VOLUME 86.7 fl (80.0-96.0); PLATELET COUNT, AUTOMATED 330 10^3/uL (150-450); RED BLOOD COUNT 4.89 10^6/uL (4.00-5.40); WHITE BLOOD COUNT 7.3 10^3/uL (4.0-10.0)
[2020-03-30 07:35] LABS: ALBUMIN 2.6 GM/DL (3.2-5.2); ALT/SGPT 13 U/L (12-78); BILIRUBIN,TOTAL 0.6 MG/DL (0.2-1.0); BLOOD UREA NITROGEN 8 MG/DL (7-18); CALCIUM LEVEL 9.8 MG/DL (8.5-10.1); CARBON DIOXIDE LEVEL 34 MEQ/L (21-32); CHLORIDE LEVEL 102 MEQ/L (98-107); CREATININE FOR GFR 0.73 MG/DL (0.55-1.30); GLOMERULAR FILTRATION RATE > 60.0 (>58); GLUCOSE, FASTING 193 MG/DL (70-100); MAGNESIUM LEVEL 1.7 MG/DL (1.8-2.4); POTASSIUM SERUM 3.5 MEQ/L (3.5-5.1); SODIUM LEVEL 140 MEQ/L (136-145); TOTAL PROTEIN 6.6 GM/DL (6.4-8.2)
[2020-03-30] MEDS: HumaLOG INSULIN (NovoLOG) PER UNIT SC SCH ×2 (08:22→12:16)
[2020-03-30] MEDS ORDERED: ENOXAPARIN 40MG/0.4ML SYRINGE (J1650 PER 10MG) SC SCH (09:00)
[2020-03-30] MEDS ORDERED: PARoxetine 20MG TABLET PO SCH (09:00)
[2020-03-30 09:20] VITALS: BP 160/87
[2020-03-30] MEDS: busPIRone 10 MG TAB PO SCH (09:22)
[2020-03-30] MEDS ORDERED: MAG SULF 1GM/100ML (MAG RUN) 1 GM in IV 1 EA IV ONE (12:45)
[2020-03-30] MEDS ORDERED: ALDA25TA2 PO (13:38)
[2020-03-30 14:15] VITALS: BP 138/85
--- NOTE | 2020-03-30 14:18 | DS.PDOC ---
Discharge Summary General Date of Admission Mar 29, 2020 at 17:28 Date of Discharge 03/30/20 Discharge Summary PROCEDURES PERFORMED DURING STAY: [None]. ADMITTING DIAGNOSES: 1. Hypertensive urgency 2. chronic intermittent vomiting DISCHARGE DIAGNOSES: 1. Diabetes Mellitus type 2 2. Diabetic Neuropathy 3. Depression/Anxiety 4. Bipolar Disorder 5. Obstructive Sleep Apnea 6. Hypertension 7. Hyperlipidemia 8. GERD 9. Obesity COMPLICATIONS/CHIEF COMPLAINT: Uncontrolled Hypertension. HISTORY OF PRESENT ILLNESS: Patient is a 49 year old female with a past medical history significant for hypertension, bipolar disorder, diabetes mellitus type 2, who presented to the [facility] emergency department with chief complaint of high blood pressure. Patient stated she was at her doctor's office and he had taken her blood pressure and noted that he was very high and [facility] The patient herself denies any chest pain or shortness of breath, chest any headaches or changes in vision. Patient states that on 02/27/2020. She had presented to [facility] with altered mental status and was found to have acute metabolic encephalopathy secondary to serotonin syndrome. Patient at that time was taking Latuda as well as several other medications. During that admission, she was intubated due to inability to every from her altered mental status. Since her discharge she has been taken off of Latuda. On presentation to the emergency department the patient was vitally stable. She did have an elevated blood pressure of 194\110. She received CT imaging of her head and a chest x-ray which was otherwise unremarkable. Hospitalist service was consulted and the patient was admitted for further evaluation and management of severe asymptomatic hypertension\hypertensive urgency. Her blood pressures were stabilized in the emergency room, her blood pressures remained stable with oral medication. She had no further complaints of nausea or vomiting. She stated that her vomiting has been intermittent for quite some time. She did not wish to remain in the hospital and was requesting to be follow-up as an outpatient. DISCHARGE MEDICATIONS: Please see below. ALLERGIES: Please see below. PHYSICAL EXAMINATION ON DISCHARGE: VITAL SIGNS: Please see below. GENERAL: NAD, lying comfortably in bed HEENT: poor dentition, NC/AT Lungs: CTA B/L Heart: +S1S2, RRR Abd: soft, NT, +BS Ext: no edema LABORATORY DATA: Please see below. ACTIVITY: [As tolerated]. DISPOSITION: Home DISCHARGE INSTRUCTIONS: 1. Follow up with PCP in 3-5 days. 2. Recommend further investigation regarding nausea/vomiting - GI consultation. DISCHARGE CONDITION: [Stable]. TIME SPENT ON DISCHARGE: 35 minutes. Vital Signs/I&Os Vital Signs Date Time Temp Pulse Resp B/P (MAP) Pulse Ox O2 Delivery O2 Flow Rate FiO2 03/30/20 09:20 87 160/87 03/30/20 06:45 17 95 Room Air 03/30/20 06:32 97.4 Laboratory Data Labs 24H Laboratory Tests 2 03/29/20 19:27: Prothrombin Time 13.1, Prothromb Time International Ratio 0.97, Activated Partial Thromboplast Time 20.9L, Anion Gap 8, Glomerular Filtration Rate > 60.0, Calcium Level 10.4H, Total Bilirubin 0.6, Direct Bilirubin 0.1, Aspartate Amino Transf (AST/SGOT) 11, Alanine Aminotransferase (ALT/SGPT) 16, Alkaline Phosphat ase 136H, Total Creatine Kinase 36, Creatine Kinase MB < 1.0, Creatine Kinase MB Relative Index 2.78, Troponin I < 0.02, CC-Oaq-Y-Type Natriuretic Peptide 286H, Total Protein 7.1, Albumin 2.8L, Albumin/Globulin Ratio 0.7L, Lipase 60L, Thyroid Stimulating Hormone (TSH) 8.920H, Free Thyroxine 1.21 03/29/20 19:36: SARS Antigen (LFIA) NEGATIVE 03/29/20 20:17: Immature Granulocyte % (Auto) 0.3, Neutrophils (%) (Auto) 54.4, Lymphocytes (%) (Auto) 35.5, Monocytes (%) (Auto) 5.0, Eosinophils (%) (Auto) 3.8H, Basophils (%) (Auto) 1.0, Neutrophils # (Auto) 3.9, Lymphocytes # (Auto) 2.6, Monocytes # (Auto) 0.4, Eosinophils # (Auto) 0.3, Basophils # (Auto) 0.1, Nucleated Red Blood Cells % (auto) 0.0 03/29/20 23:01: Bedside Glucose (Misc Panel) 220H 03/30/20 06:52: Nucleated Red Blood Cells % (auto) 0.0, Anion Gap 4L, Glomerular Filtration Rate > 60.0, Calcium Level 9.8, Magnesium Level 1.7L, Total Bilirubin 0.6, Aspartate Amino Transf (AST/SGOT) 9, Alanine Aminotransferase (ALT/SGPT) 13, Alkaline Phosphatase 124H, Total Protein 6.6, Albumin 2.6L, Albumin/Globulin Ratio 0.7L 03/30/20 07:50: Bedside Glucose (Misc Panel) 184H 03/30/20 12:09: Bedside Glucose (Misc Panel) 197H CBC/BMP Laboratory Tests 03/29/20 19:27 03/29/20 20:17 03/30/20 06:52 FSBS Laboratory Tests Test 03/29/20 23:01 03/30/20 07:50 03/30/20 12:09 Range/Units Bedside Glucose (Misc Panel) 220 184 197 70-105 MG/DL Microbiology Microbiology 03/29/20 Respiratory [facility] Panel (PCR) ([facility]) - Final, Complete Discharge Medications Scheduled Amlodipine Besylate (Amlodipine Besylate) 10 Mg Tablet, 10 MG PO DAILY, (Reported) Buspirone HCl (Buspirone HCl) 30 Mg Tablet, 30 MG PO BID, (Reported) Insulin Glargine,Hum.rec.anlog (Basaglar Kwikpen U-100) 100 Unit/1 Ml Insuln.pen, 25 UNIT SC QHS, (Reported) Levothyroxine Sodium (Synthroid) 150 Mcg Tablet, 150 MCG PO DAILY, (Reported) Lisinopril (Lisinopril) 20 Mg Tablet, 20 MG PO QHS, (Reported) Paroxetine HCl (Paroxetine) 40 Mg Tablet, 40 MG PO DAILY, (Reported) Spironolactone (Aldactone) 25 Mg Tablet, 1 TAB PO DAILY Scheduled PRN Trazodone HCl (Trazodone HCl) 50 Mg Tablet, 100 MG PO QHS PRN for INSOMNIA, (Reported) Allergies Coded Allergies: No Known Allergies (Unverified , 02/20/19) PRASHANT BROTHERS MD Mar 30, 2020 14:18
== END 2020-03-30 14:34 | disposition home or self-care (01) ==
LOC: M ED 17:27 → M ED INP 17:28
PROVIDERS: ADMIT Internal Medicine; ATTEND Internal Medicine
DX: I16.0 Hypertensive urgency (principal); E11.40 Type 2 diabetes mellitus with diabetic neuropathy, unspecified; R11.10 Vomiting, unspecified; G47.33 Obstructive sleep apnea (adult) (pediatric); F31.9 Bipolar disorder, unspecified; F41.9 Anxiety disorder, unspecified; Z87.891 Personal history of nicotine dependence; I10 Essential (primary) hypertension; E78.49 Other hyperlipidemia; K21.9 Gastro-esophageal reflux disease without esophagitis; E66.9 Obesity, unspecified; Z79.899 Other long term (current) drug therapy
CPT/HCPCS: 36415; 70450; 71045; 80048; 80053; 80076; 82550; 82553; 83690; 83735; 83880; 84439; 84443; 85025; 85027; 85610; 85730; 87486; 87581; 87633; 87798; 93005; 93041; 94760; 96372; 96374; 99285; J1650

== ENCOUNTER 2020-04-16 10:22 | Inpatient (IN) | payer OTHER ==
[~2020-04-16] VITALS: Ht 165.1 cm; Wt 80.5 kg
[~2020-04-16 10:22] MED LIST changes: +ALDA25TA2 PO; +ALDA50TA2 PO; +AMLO1TAB25 PO; +BUSP30TA; +LEVO150T7; +PARO40TA2; +SYNT150T PO; +TRAZ-252
[2020-04-16] MEDS ORDERED: ONDANSETRON 4MG/2ML VIAL IV ONE (10:45)
[2020-04-16] MEDS ORDERED: NS 1,000 ML IV ONE (10:45)
--- OUTSIDE RECORDS SUMMARY | 2020-04-16 11:03 | CCD ---
Author Author Shandra Servin Organization Unknown Address [address] [place] [id number] Phone Care Team Providers [facility] Supervisor Name Role Phone Dipti Servin PCP Allergies, [...] Name Taxonomy Code Taxonomy Desc Phone Number [phone] buspirone 05/28/2019 twice a day 30 mg tablet [phone] Dipti Servin [id number] Psychiatric/Mental [facility] [phone] paroxetine HCl by mouth [id number] 05/28/2019 06/08/2020 once a day 30 40 mg tablet [phone] Dipti Servin [id number] Psychiatric/Mental Health [phone] Social History Social History Element Description Concept Effective Date Smoking Status Unknown if ever smoked [id number] Immunizations No Data in Section Vital Signs No Data in Section Procedures Date Concept Id Description Targeted Site Concept Targeted Site Concept Type 04/07/2020 74619-41 [facility] Tele[facility] E/M Lvl 3--Est pt CPT Patient has no history of implantable de vices Encounters Encounter Start Date End Date Encounter Type Description Diagnosis Di agnosis Desc Location Author First Name Author Last Name Npid Taxonomy Cod e Taxonomy Desc Phone Number Location Addr1 Location Addr2 Location [facility] Location [facility] Location Zip [id number] 04/07/2020 04/07/2020 67458-11 [facility] Telemed E/M Lvl 3--Est p t F31.9 Bipolar disorder, unspecified [facility] [id number] [id number] Psychiatric/Mental Health [phone] [address] [address] Plan of Treatment No Data in Section Lab Results No Data in Section Instructions No Data in Section Insurance Providers Insurance Id Policy Effective Date Policy Thru Date Company N fuentes [id number] 2019 [employer] joyner
--- OUTSIDE RECORDS SUMMARY | 2020-04-16 11:04 | CCD ---
Author Author [facility] Organization [facility] Address Unknown Phone Unavailable Care Team Providers Care Human Capital Consultant Name Role Phone Kelly Kumar MD Unavailable Unavailable Kelly Kumar MD Unavailable Unavailable Kelly Kumar MD Unavailable Unavailable Kelly Kumar MD Unavailable Unavailable Kelly Kumar MD Unavailable Unavailable Kelly Kumar MD Unavailable Unavailable Kelly Kumar MD Unavailable Unavailable Kelly Kumar MD Unavailable Unavailable Kelly Kumar MD Unavailable Unavailable Kelly Kumar MD Unavailable Unavailable Kelly Kumar MD Unavailable Unavailable Kelly Kumar MD Unavailable Unavailable Kelly Kumar MD Unavailable Unavailable Kelly Kumar MD Unavailable Unavailable StacyKelly britton MD Unavailable Unavailable StacyKelly britton MD Unavailable Unavailable StacyKelly britton MD Unavailable Unavailable StacyKelly MD Unavailable Unavailable StacyKelly MD Unavailable Unavailable StacyKelly MD Unavailable Unavailable StacyKelly britton MD Unavailable Unavailable StacyKelly MD Unavailable Unavailable StacyKelly britton MD Unavailable Unavailable StacyKelly britton MD Unavailable Unavailable StacyKelly britton MD Unavailable Unavailable StacyKelly britton MD Unavailable Unavailable StacyKelly MD Unavailable Unavailable StacyKelly britton MD Unavailable Unavailable StacyKelly britton MD Unavailable Unavailable Kelly Kumar MD Unavailable Unavailable Kelly Kumar MD Unavailable Unavailable Kelly Kumar MD Unavailable Unavailable Kelly Kumar MD Unavailable Unavailable Kelly Kumar MD Unavailable Unavailable Yoana HARRINGTON MD Unavailable Unavailable Yoana HARRINGTON MD Unavailable Unavailable Yoana HARRINGTON MD Unavailable Unavailable Yoana HARRINGTON MD Unavailable Unavailable Yoana HARRINGTON MD Unavailable Unavailable Yoana HARRINGTON MD Unavailable Unavailable Yoana HARRINGTON MD Unavailable Unavailable Yoana HARRINGTON MD Unavailable Unavailable Yoana HARRINGTON MD Unavailable Unavailable Yoana HARRINGTON MD Unavailable Unavailable Yoana HARRINGTON MD Unavailable Unavailable Yoana HARRINGTON MD Unavailable Unavailable Yoana HARRINGTON MD Unavailable Unavailable Yoana HARRINGTON MD Unavailable Unavailable Yoana HARRINGTON MD Unavailable Unavailable Yoana HARRINGTON MD Unavailable Unavailable Yoana HARRINGTON MD Unavailable Unavailable Yoana HARRINGTON MD Unavailable Unavailable Yoana HARRINGTON MD Unavailable Unavailable Yoana HARRINGTON MD Unavailable Unavailable Yoana HARRINGTON MD Unavailable Unavailable Yoana HARRINGTON MD Unavailable Unavailable Yoana HARRINGTON MD Unavailable Unavailable Yoana HARRINGTON MD Unavailable Unavailable Yoana HARRINGTON MD Unavailable Unavailable Yoana HARRINGTON MD Unavailable Unavailable Yoana HARRINGTON MD Unavailable Unavailable Yoana HARRINGTON MD Unavailable Unavailable Yoana HARRINGTON MD Unavailable Unavailable Yoana HARRINGTON MD Unavailable Unavailable Yoana HARRINGTON MD Unavailable Unavailable Yoana HARRINGTON MD Unavailable Unavailable Yoana HARRINGTON MD Unavailable Unavailable Yoana HARRINGTON MD Unavailable Unavailable Yoana HARRINGTON MD Unavailable Unavailable Kayli Rojas MD Unavailable [...] Unavailable Unavailable Kayli Rojas MD Unavailable Unavailable Eadline, K Francheska Unavailable [...] Mare Milagros PA Unavailable Unavailable Campanaro, Mare Mialgros PA Unavailable Unavailable Campanaro, Mare Milagros PA [...] Unavailable Campanaro, Mare Milagros PA Unavailable Unavailable Jennifer Mendez Unavailable Rani ESTRADA MD Unavailable Unavailable Rani ESTRADA MD Unavailable Unavailable Rani ESTRADA MD Unavailable Unavailable Rani ESTRADA MD Unavailable Unavailable Rani ESTRADA MD Unavailable Unavailable Rani ESTRADA MD Unavailable Unavailable Rani ESTRADA MD Unavailable Unavailable Rani ESTRADA MD Unavailable Unavailable Rani ESTRADA MD Unavailable Unavailable Rani ESTRADA MD Unavailable Unavailable Rani ESTRADA MD Unavailable Unavailable Rani ESTRADA MD Unavailable Unavailable Rani ESTRADA MD Unavailable Unavailable Rani ESTRADA MD Unavailable Unavailable Rani ESTRADA MD Unavailable Unavailable Rani ESTRADA MD Unavailable Unavailable Rani ESTRADA MD Unavailable Unavailable Rani ESTRADA MD Unavailable Unavailable Rani ESTRADA MD Unavailable Unavailable Rani ESTRADA MD Unavailable Unavailable Rani ESTRADA MD Unavailable Unavailable Rani ESTRADA MD Unavailable Unavailable Rani ESTRADA MD Unavailable Unavailable Rani ESTRADA MD Unavailable Unavailable Rani ESTRADA MD Unavailable Unavailable Rani ESTRADA MD Unavailable Unavailable Rani ESTRADA MD Unavailable Unavailable Rani ESTRADA MD Unavailable Unavailable Rani ESTRADA MD Unavailable Unavailable Rani ESTRADA MD Unavailable Unavailable Rani ESTRADA MD Unavailable Unavailable Rani ESTRADA MD Unavailable Unavailable Rani ESTRADA MD Unavailable Unavailable Rani ESTRADA MD Unavailable Unavailable Rani ESTRADA MD Unavailable Unavailable Rani ESTRADA MD Unavailable Unavailable Rani ESTRADA MD Unavailable Unavailable Rani ESTRADA MD Unavailable Unavailable Rani ESTRADA MD Unavailable Unavailable Rani ESTRADA MD Unavailable Unavailable Rani ESTRADA MD Unavailable Unavailable Rani ESTRADA MD Unavailable Unavailable Rani ESTRADA MD Unavailable Unavailable Rani ESTRADA MD Unavailable Unavailable Rani ESTRADA MD Unavailable Unavailable Rani ESTRADA MD Unavailable Unavailable Rani ESTRADA MD Unavailable Unavailable Rani ESTRADA MD Unavailable Unavailable Rani ESTRADA MD Unavailable Unavailable Rani ESTRADA MD Unavailable Unavailable Rani ESTRADA MD Unavailable Unavailable Rani ESTRADA MD Unavailable Unavailable Rani ESTRADA MD Unavailable Unavailable Rani ESTRADA MD Unavailable Unavailable Rani ESTRADA MD Unavailable Unavailable Rani ESTRADA MD Unavailable Unavailable Rani ESTRADA MD Unavailable Unavailable Rani ESTRADA MD Unavailable Unavailable Rani ESTRADA MD Unavailable Unavailable Rani ESTRADA MD Unavailable Unavailable Rani ESTRADA MD Unavailable Unavailable Rani ESTRADA MD Unavailable Unavailable Rani ESTRADA MD Unavailable Unavailable Rani ESTRADA MD Unavailable Unavailable Rani ESTRADA MD Unavailable Unavailable Rani ESTRADA MD Unavailable Unavailable Rani ESTRADA MD Unavailable Unavailable Rani ESTRADA MD Unavailable Unavailable Rani ESTRADA MD Unavailable Unavailable Rani ESTRADA MD Unavailable Unavailable Rani ESTRADA MD Unavailable Unavailable Rani ESTRADA MD Unavailable Unavailable Rani ESTRADA MD Unavailable Unavailable Rani ESTRADA MD Unavailable Unavailable Rani ESTRADA MD Unavailable Unavailable Rani ESTRADA MD Unavailable Unavailable Rani ESTRADA MD Unavailable Unavailable Rani ESTRADA MD Unavailable Unavailable Rani ESTRADA MD Unavailable Unavailable Rani ESTRADA MD Unavailable Unavailable Rani ESTRADA MD Unavailable Unavailable Rani ESTRADA MD Unavailable Unavailable Rani ESTRADA MD Unavailable Unavailable LYNDA, ELSA PA Unavailable Unavailable [...] Unavailable Unavailable LYNDA, ELSA PA Unavailable Unavailable MACQUEEN, DIPTI REPAIR WEAVER Unavailable Unavailable MACQUEEN, DIPTI REPAIR WEAVER Unavailable Unavailable MACQUEEN, DIPTI REPAIR WEAVER Unavailable Unavailable MACQUEEN, DIPTI REPAIR WEAVER Unavailable Unavailable MACQUEEN, DIPTI REPAIR WEAVER Unavailable Unavailable MACQUEEN, DIPTI REPAIR WEAVER Unavailable Unavailable MACQUEEN, DIPTI REPAIR WEAVER Unavailable Unavailable MACQUEEN, DIPTI REPAIR WEAVER Unavailable Unavailable MACQUEEN, DIPTI REPAIR WEAVER Unavailable Unavailable MACQUEEN, DIPTI REPAIR WEAVER Unavailable Unavailable MACQUEEN, DIPTI REPAIR WEAVER Unavailable Unavailable Lino, Syl COPPER MINER BLASTING COPPER MINER BLASTING Unavailable Unavailable Jolene Pierre Unavailable Lino, A Syl COPPER MINER BLASTING Unavailable Unavailable Lino, A Syl COPPER MINER BLASTING Unavailable Unavailable Lino, A Syl COPPER MINER BLASTING Unavailable Unavailable Lino, A Syl COPPER MINER BLASTING Unavailable Unavailable Lino, A Syl COPPER MINER BLASTING Unavailable Unavailable Lino, A Syl COPPER MINER BLASTING Unavailable Unavailable Lino, A Syl COPPER MINER BLASTING Unavailable Unavailable Lino, A Syl COPPER MINER BLASTING Unavailable Unavailable Lino, A Syl COPPER MINER BLASTING Unavailable Unavailable Lino, A Syl COPPER MINER BLASTING Unavailable Unavailable Lino, A Syl COPPER MINER BLASTING Unavailable Unavailable Lino, A Syl COPPER MINER BLASTING Unavailable Unavailable Lino, A Syl COPPER MINER BLASTING Unavailable Unavailable Lino, A Syl COPPER MINER BLASTING Unavailable Unavailable Lino, A Syl COPPER MINER BLASTING Unavailable Unavailable Lino, A Syl COPPER MINER BLASTING Unavailable Unavailable Lino, A Syl COPPER MINER BLASTING Unavailable Unavailable Lino, A Syl COPPER MINER BLASTING Unavailable Unavailable Lino, A Syl COPPER MINER BLASTING Unavailable Unavailable Lino, A Syl COPPER MINER BLASTING Unavailable Unavailable Lino, A Syl COPPER MINER BLASTING Unavailable Unavailable Lino, A Syl COPPER MINER BLASTING Unavailable Unavailable Lino, A Syl COPPER MINER BLASTING Unavailable Unavailable Lino, A Syl COPPER MINER BLASTING Unavailable Unavailable Lino, A Syl COPPER MINER BLASTING Unavailable Unavailable Lino, A Syl COPPER MINER BLASTING Unavailable Unavailable Lino, A Syl COPPER MINER BLASTING Unavailable Unavailable Lino, A Ysl COPPER MINER BLASTING Unavailable Unavailable LETTIERE, A JESSICA PA Unavailable [...] Unavailable LETTIERE, A JESSICA PA Unavailable Unavailable Re-disclosure Warning The records that you [...] is protected by Article 27-F of the [facility] Public Health law. If you continue you may have access to information: Regarding HIV / AIDS; Provided by facilities licensed or operated by the [facility] Office of Mental Health; or Provided by the [facility] Office for People With Developmental Disabilities. If such information is present, then the following [facility] mandated warning applies: This information has [...] law may result in a fine or intermediate sentence or both. A general authorization for the release of medical or other information is NOT sufficient authorization for further disc losure. Allergies and Adverse Reactions Type Description Substance Reaction Status Data Source(s ) Allergy to substance Allergy to substance Allergy to substance ANNIKA ([facility]) Family History Family Member Name Family Member Gender Family Member Status Date o f Status Description Data Source(s) Unknown Unknown Problem [facility] ([facility]) Unknown Unknown Problem [facility] Unknown Male Problem MEDENT ([facility]) Encounters Encounter Providers Location Date Indications Data Source(s ) Outpatient Attender: DIPTI GARCIA NP [facility] 04/07/2020 11:00:00 AM EST - 04/07/2020 11:00:00 AM EST [facility] ([facility]) Attender: DIPTI GARCIA NP 04/07/2020 12:00:00 AM EST [facility] ([facility]) Williams Rojas MD: [address] [place] [phone], Ph. Attender: Williams Rojas MD [facility] Medical 03/11/2020 12:00:00 AM EST ANNIKA ([facility]) Outpatient Attender: DIPTI GARCIA NP [facility] Gigi l 03/10/2020 11:30:00 AM EST - 03/10/2020 11:30:00 AM EST [facility] ([facility]) Attender: DIPTI GARCIA NP 03/10/2020 12:00:00 AM EST [facility] ([facility]) Outpatient Attender: Milagros dumonty 12/04/2019 05:20:00 PM EDT MEDENT ([facility]) Outpatient Attender: NIKI MEDINA 11/26/2019 12:59:00 P M EDT [facility] Outpatient Attender: JESSICA dumonty 11/11/2019 10:15:00 AM EDT MED[facility] ([facility]) Outpatient Attender: Syl MEDINA 10/28/2019 09:3 9:01 AM EDT [facility] Outpatient Attender: Syl MEDINA 10/27/2019 12:1 1:02 AM EDT [facility] Outpatient Attender: Syl MEDINA 10/01/2019 09:4 0:01 AM EDT [facility] Outpatient Attender: NIKI MEDINA 09/30/2019 04:33:00 P M EDT [facility] Outpatient Attender: Syl MEDINA 08/22/2019 10:2 9:01 AM EDT [facility] Outpatient Attender: Syl MEDINA 08/22/2019 10:0 8:01 AM EDT [facility] Outpatient Attender: Kelly Kumar MD 08/07/2019 12:00:00 A M [facility] Outpatient Attender: DIPTI GARCIA NP [facility] Gigi chiang 07/30/2019 03:00:00 AM EDT - 07/30/2019 03:00:00 AM EDT [facility] ([facility]) Attender: DIPTI GARCIA NP 07/30/2019 12:00:00 AM EDT [facility] ([facility]) Outpatient Attender: NIKI MEDINA 07/29/2019 02:45:00 P M EDT [facility] Outpatient Attender: Syl Lino PRINCE 07/28/2019 06:2 0:01 PM EDT [facility] Outpatient Attender: NIKI Huynh [facility] 07/24/2019 07:48:00 A M EDT [facility] Outpatient Attender: COPPER MINER BLASTING Lino [facility] 07/15/2019 01:34:01 P M EDT [facility] Outpatient Attender: JESSICA gregorio 07/15/2019 12:30:00 PM EDT MEDENT ([facility]) Outpatient Attender: TYSON ESTRADA MD 07/04/2019 02:37:03 P M EDT [facility] Outpatient Attender: TYSON ESTRADA MD 07/04/2019 02:30:10 P M EDT [facility] Outpatient Attender: TYSON ESTRADA MD 07/04/2019 02:30:08 P M EDT [facility] Outpatient Attender: TYSON ESTRADA MD 07/04/2019 01:58:00 P M EDT [facility] [email or web address]"Psychotherapy Attender: Jolene Pierre [facility] 06/20/2019 11:00:00 AM EDT - 06/20/2019 11:00:00 AM EDT [facility] ([facility]) Attender: Jolene Pierre 06/20/2019 12:00:00 AM EDT [facility] ([facility]) Outpatient Attender: DIPTI GARCIA NP [facility] 05/28/2019 04:30:00 AM EDT - 05/28/2019 04:30:00 AM EDT [facility] ([facility]) Attender: DIPTI GARCIA NP 05/28/2019 12:00:00 AM EDT [facility] ([facility]) Outpatient Attender: DIPTI GARCIA NP [facility] 05/22/2019 04:00:00 AM EDT - 05/22/2019 04:00:00 AM EDT [facility] ([facility]) Attender: DIPTI GARCIA NP 05/22/2019 12:00:00 AM EDT [facility] ([facility]) Outpatient Attender: TYSON MEDINA 05/09/2019 11:53:03 A M [facility] Outpatient Attender: TYSON ESTRADA MD 05/09/2019 11:53:01 A M [facility] Outpatient Attender: TYSON MEDINA 05/08/2019 11:22:47 A M [facility] Outpatient Attender: Francheska Mast 05/06/2019 12:00:00 AM [facility] Outpatient Attender: TYSON MEDINA 05/01/2019 04:07:01 P [facility] Outpatient Attender: TYSON ESTRADA MD 04/29/2019 09:12:01 A [facility] Outpatient Attender: TYSON MEDINA 04/29/2019 08:18:00 A [facility] Brief Individual Psychotherapy - 30 min Attender: Jennifer Perales [facility] 04/14/2019 10:00:00 AM EST - 04/14/2019 10:00:00 AM EST [facility] ([facility]) Attender: Jennifer Mendez 04/14/2019 12:00:00 AM EST [facility] ([facility]) Outpatient Attender: TYSON ESTRADA MD 04/11/2019 12:50:01 P [facility] Outpatient Attender: TYSON ESTRADA MD 04/11/2019 11:13:00 A [facility] Outpatient Attender: TYSON ESTRADA MD 04/11/2019 09:17:34 A [facility] Outpatient Attender: TYSON MEDINA 04/09/2019 01:51:00 P [facility] Outpatient Attender: TYSON ESTRADA MD 04/09/2019 01:48:01 P [facility] Outpatient Attender: SHARON Hong/Josef/Adalberto/ Schuyler 04/08/2019 07:45:00 AM EST [facility] ([facility] Outpatient Attender: TYSON ESTRADA MD FP 04/04/2019 11:29:01 A [facility] Outpatient Attender: TYSON ESTRADA MD FP 03/31/2019 04:25:00 P [facility] Outpatient Attender: SHARON Hong/Josef/Adalberto/ Reindl 03/25/2019 12:30:00 PM EST [facility] ([facility] Outpatient Attender: TYSON ESTRADA MD FP 03/25/2019 12:28:01 P [facility] Outpatient Attender: TYSON ESTRADA MD FP 03/24/2019 10:03:02 A [facility] Outpatient Attender: TYSON ESTRADA MD FP 03/19/2019 01:20:01 P [facility] Outpatient Attender: SHARON Hong/Josef/Adalberto/ Reindl 03/13/2019 01:45:00 PM EST [facility] ([facility]) Outpatient Attender: TYSON ESTRADA MD FP 03/11/2019 03:38:01 P [facility] Outpatient Attender: TYSON ESTRADA MD FP 03/11/2019 12:07:03 P [facility] Outpatient Attender: TYSON ESTRADA MD FP 03/10/2019 10:57:01 P [facility] Outpatient Attender: TYSON ESTRADA MD FP 03/10/2019 01:57:03 P [facility] Outpatient Attender: TYSON ESTRADA MD FP 03/07/2019 11:00:01 A [facility] Outpatient Attender: TYSON ESTRADA MD FP 03/06/2019 04:27:59 P [facility] Outpatient Attender: TYSON ESTRADA MD FP 03/05/2019 03:25:00 P [facility] Outpatient Attender: TYSON ESTRADA MD FP 03/05/2019 12:03:00 P [facility] Outpatient Attender: TYSON ESTRADA MD FP 03/05/2019 10:09:00 A [facility] Outpatient Attender: TYSON ESTRADA MD FP 03/04/2019 03:14:00 P [facility] Outpatient Attender: TYSON MEDINA 03/04/2019 03:13:01 P [facility] Outpatient Attender: TYSON MEDINA 03/04/2019 03:12:00 P [facility] Outpatient Attender: TYSON ESTRADA MD FP 03/04/2019 03:07:01 P [facility] Outpatient Attender: TYSON ESTRADA MD FP 03/04/2019 02:04:02 P [facility] Outpatient Attender: TYSON ESTRADA MD FP 03/04/2019 11:22:01 A [facility] Outpatient Attender: TYSON ESTRADA MD FP 03/04/2019 10:04:00 A [facility] Outpatient Attender: TYSON ESTRADA MD 03/03/2019 04:33:00 P [facility] Outpatient Attender: TYSON ESTRADA MD 02/28/2019 12:34:01 P [facility] Outpatient Attender: TYSON ESTRADA MD 02/24/2019 09:01:04 P [facility] Outpatient Attender: ELSA vargas 02/20/2019 04:30:00 PM EST [facility] ([facility] Outpatient Attender: DIPTI GARCIA NP [facility] 02/20/2019 11:00:00 AM EST - 02/20/2019 11:00:00 AM EST [facility] ([facility]) Attender: DIPTI GARCIA NP 02/20/2019 12:00:00 AM EST [facility] ([facility]) Functional Status Medications Medication Brand Name Start Date Product Form Dose Route Admi nistrative Instructions Pharmacy Instructions Status Indications Reaction Description Data Source(s) 10 mg 04/10/2020 12:00:00 AM EST tablet 30 TAKE ONE TABLET BY MOUTH ONCE DAILY TAKE ONE TABLET BY MOUTH ONCE DAILY SOLD: 04/11/2020 [facility] 25 mg 03/31/2020 12:00:00 AM EST tablet 14 TAKE ONE TABLET BY MOUTH EVERY DAY TAKE ONE TABLET BY MOUTH EVERY DAY SOLD: 03/31/2020 [facility] 150 mcg 03/26/2020 12:00:00 AM EST tablet [...] EVERY MORNING B EFORE BREAKFAST SOLD: 03/21/2020 [facility] 31 gauge x 3/16" 03/03/2020 [...] SKIN EVERY DAY AT BEDTIME SOLD: 03/03/2020 [facility] 10 mg 03/02/2020 12:00:00 AM EST tablet 30 TAKE 1 TABLET [10MG] BY MOUTH DAILY TAKE 1 TABLET [10MG] BY MOUTH DAILY SOLD: 03/03/2020 [facility] Cyclobenzaprine hydrochloride 10 MG Oral Tablet CYCLOBENZAPR INE HCL 02/06/2020 12:00:00 AM EST tablet 21 TAKE ONE TABLET BY MOUTH THREE TIMES A DAY FOR 7 DAYS TAKE ONE TABLET BY MOUTH THREE TIMES A DAY FOR 7 DAYS SOLD: [facility] 10 mg 02/06/2020 12:00:00 AM EST tablet 20 TAKE ONE TABLET BY MOUTH EVERY 6 HOURS FOR 5 DAYS TAKE ONE TABLET BY MOUTH EVERY 6 HOURS FOR 5 DAYS SOLD : 02/06/2020 [facility] Paroxetine Hydrochloride 40 MG Oral Tablet [...] AM EST 20 mg by mouth completed [id number] Latuda by mouth [id number] 01/14/2020 04/13/2020 twice a day 30 20 mg tablet [id number] Dipti Garcia [id number] [facility] Paroxetine Hydrochloride 40 MG Oral Tablet PAROXETINE HCL 01/14/2020 12:00:00 AM EST tablet 30 TAKE 1 TABLET BY MOUTH ONCE A DAY TAKE 1 TABLET BY MOUTH ONCE A DAY SOLD: 01/14/2020 [facility] Amoxicillin 875 MG Oral Tablet Amoxicillin 11/11/2019 12:00:00 AM EDT completed [facility] ([facility]) 875 mg 11/11/2019 12:00:00 AM [...] 30 TAKE ONE TABLET BY MOUTH NENA RY DAY TAKE ONE TABLET BY MOUTH EVERY DAY SOLD: 12/16/2019 [facility] 20 mg 10/27/2019 12:00:00 AM EDT tablet 30 TAKE ONE TABLET BY MOUTH DAILY TAKE ONE TABLET BY MOUTH DAILY SOLD: 10/27/2019 [facility] 20 mg 10/27/2019 12:00:00 AM EDT tablet 30 TAKE ONE TABLET BY MOUTH DAILY TAKE ONE TABLET BY MOUTH DAILY SOLD: 04/06/2020 [facility] 20 mg 10/27/2019 12:00:00 AM [...] EYE DIRE CTED EVERY HOUR SOLD: 07/29/2019 [facility] 1 % 07/29/2019 12:00:00 AM [...] 07/15/2019 12:00:00 AM EDT ORAL active [facility] ([facility]) Triamcinolone Acetonide 1 MG/ML Topical Cream Triamcinolone Acetonide 07/15/2019 12:00:00 AM EDT active [facility] ([facility]) Acyclovir 0.05 MG/MG Topical Ointment Acyclovir 07/15/2019 12:00:00 AM EDT completed [facility] ([facility]) 1 gram 07/15/2019 12:00:00 AM [...] (AVOID CREAM TO FACE) SOLD: 07/15/2019 [facility] Fluconazole 100 MG Oral Tablet [Diflucan] Diflucan 07/08/2019 1 2:00:00 AM EDT active [facility] ([facility]) 100 mg 07/08/2019 12:00:00 AM EDT tablet 8 TAKE 2 TABLETS BY MOUTH ON FIRST DAY AND THEN 1 TABLET FOR THE NEXT 6 DAYS TAKE 2 TABLETS BY MOUTH ON FIRST DAY AND THEN 1 TABLET FOR THE NEXT 6 DAYS SOLD: 07/08/2019 [facility] 500 mg 07/04/2019 12:00:00 AM EDT [...] 2019 12:00:00 AM EDT 30 mg completed [id number] buspirone 05/28/2019 twice a day 30 mg tablet 38645 [id number] Dipti Martinez [id number] [facility] ([facility]) paroxetine HCl paroxetine HCl 05/28/2019 12:00:00 AM EDT 40 mg by mouth completed [id number] paroxetine HCl by mouth [id number] 05/28/2019 once a day 30 40 mg tablet 72146 [id number] [id number] Dipti Martinez [id number] [facility] ([facility]) Trazodone Hydrochloride 50 MG Oral Tablet trazodone 2019 12:00:00 AM EDT 50 mg by mouth completed [id number] trazodone by mouth [id number] 05/28/2019 08/26/2019 every night 30 50 mg tablet 00067 [id number] Maria A Garcia [id number] [facility] ([facility]) aripiprazole 10 MG Oral Tablet [Abilify] Abilify 05/28/2019 12 :00:00 AM EDT 10 mg by mouth completed [id number] Abilify by mouth [id number] 05/28/2019 08/26/2019 once a day 30 10 mg tablet 10529 [id number] Jose Rafael Ng [id number] [facility] ([facility]) buspirone hydrochloride 15 MG Oral Tablet [...] BY MOUTH ONCE DAILY SOLD: 04/11/2019 [facility] buspirone hydrochloride 15 MG Oral [...] FOR 3 DAYS SOLD: 02/26/2019 [facility] Cephalexin 500 MG Oral Tablet Cephalexin 02/13/2019 12:00:00 AM EST ORAL completed [facility] ([facility]) Oxybutynin chloride 5 MG Oral Tablet OXYBUTYNIN CHLORIDE 12:00:00 AM EST tablet 60 TAKE ONE TABLET BY MOUTH TWI CE A DAY TAKE ONE TABLET BY MOUTH TWICE A DAY SOLD: 03/25/2019 [facility] 1.5 mg/0.5 mL 02/08/2019 12:00:00 AM EST pen injector 2 INJECT 1.5MG UNDER THE SKIN WEEKLY INJECT 1.5MG UNDER THE SKIN WEEKLY SOLD: 03/25/2019 [facility] 40 mg 02/08/2019 12:00:00 AM EST tablet 30 TAKE 1 TABLET BY MOUTH DAILY TAKE 1 TABLET BY MOUTH DAILY SOLD: 06/26/2019 [facility] 40 mg 02/08/2019 12:00:00 AM EST tablet 30 TAKE 1 TABLET BY MOUTH DAILY TAKE 1 TABLET BY MOUTH DAILY SOLD: 04/22/2019 [facility] Oxybutynin chloride 5 MG Oral Tablet OXYBUTYNIN CHLORIDE 12:00:00 AM EST tablet 60 TAKE ONE TABLET BY MOUTH TWI CE A DAY TAKE ONE TABLET BY MOUTH TWICE A DAY SOLD: 06/05/2019 [facility] 1.5 mg/0.5 mL 02/08/2019 12:00:00 AM EST pen injector 2 INJECT 1.5MG UNDER THE SKIN WEEKLY INJECT 1.5MG UNDER THE SKIN WEEKLY SOLD: 06/05/2019 [facility] 40 mg 02/08/2019 12:00:00 AM EST tablet 30 TAKE 1 TABLET BY MOUTH DAILY TAKE 1 TABLET BY MOUTH DAILY SOLD: 05/24/2019 [facility] 0.35 mg 12/27/2018 12:00:00 AM [...] MAX 130 UNITS/DAY SOLD: 04/04/2019 [facility] 125 mcg 09/26/2018 12:00:00 AM [...] fluconazole 100 MG Ora l Tablet ANNIKA ([facility]) aripiprazole 10 MG Oral Tablet aripipraz ole 10 mg tablet TAKE ONE TABLET BY MOUTH EVERY DAY aripiprazole 10 mg tablet TAKE ONE TABLET BY MOUTH EVERY DAY completed aripiprazole 1 0 MG Oral Tablet KENOVA ([facility]) chlorhexidine gluconate 40 MG/ML Medicat ed Liquid Soap [Hibiclens] Hibiclens 4 % topical liquid WASH INTO AFFECTED AREA TWO TIMES A DAY FOR 10 DAYS Hibiclens 4 % topical liquid WASH INTO AFFECTED AREA TWO TIMES A DAY FOR 10 DAYS completed chlorhexidine gl uconate 40 MG/ML Medicated Liquid Soap [Hibiclens] ANNIKA ([facility]) OneTouch Ultra Blue Test Strip TEST FOUR TIMES A DAY [id number] completed OneTouch Ultra Blue Test Strip A THENSita ([facility]) Amoxicillin 875 MG / Clavulanate 125 MG Oral Tablet [Augmentin] Augmentin 875 mg-125 mg tablet Take 1 tablet every 12 hours by oral route. Augmentin 875 mg- 125 mg tablet Take 1 tablet every 12 hours by oral route. 1 completed amoxicillin 875 MG / clavulanate 125 MG Oral Tablet [Augmentin] ANNIKA ([facility]) atorvastatin 10 MG Oral Tablet atorvasta tin 10 mg tablet TAKE 1 TABLET BY MOUTH EVERY DAY AT BEDTIME atorvastatin 10 mg tablet TAKE 1 TABLET BY MOUTH EVERY DAY AT BEDTIME completed atorvastati n 10 MG Oral Tablet ANNIKA ([facility]) Fenofibrate 160 MG Oral Tablet fenofibra te 160 mg tablet TAKE ONE TABLET BY MOUTH DAILY fenofibrate 160 mg tablet TAKE ONE TABLET BY MOUTH DAILY completed fenofibrate 160 MG Oral Tabl et ANNIKA ([facility]) tizanidine 4 MG Oral Tablet tizanidine 4 mg tablet TAKE ONE TABLET BY MOUTH EVERY 8 HOURS NEEDED tizanidine 4 mg tablet TAKE ONE TABLET B Y MOUTH EVERY 8 HOURS NEEDED completed tizani dine 4 MG Oral Tablet ANNIKA ([facility]) terconazole 4 MG/ML Vaginal Cream tercon azole 0.4 % vaginal cream INSERT ONE APPLICATORFUL VAGINALLY AT BEDTIME FOR 7 NIGHTS terconazole 0.4 % vaginal cream INSERT ONE APPLICATORFUL VAGINALLY AT BEDTIME FOR 7 NIGHTS completed terconazole 4 MG/ML Vaginal Crea m ANNIKA ([facility]) buspirone hydrochloride 15 MG Oral Table t buspirone 15 mg tablet TAKE 1 TABLET BY MOUTH TWICE A DAY buspirone 15 mg tablet TAKE 1 TABLET BY MOUTH TWICE A DAY completed buspirone hydr ochloride 15 MG Oral Tablet ANNIKA ([facility]) OneTouch Delica Plus Lancet 33 gauge TEST FOUR TIMES A DAY [id number] completed OneTouch Delica Plus Lancet 33 g auge ANNIKA ([facility]) Cholecalciferol 2000 UNT Oral Tablet cho lecalciferol (vitamin D3) 50 mcg (2,000 unit) tablet TAKE ONE TABLET BY MOUTH DAILY WITH DINNER cholecalciferol (vitamin D3) 50 mcg (2,000 unit) tablet TAKE ONE TABLET BY MOUTH DAILY WITH DINNER completed cholecalciferol 0.05 M G Oral Tablet KENOVA ([facility]) Hydrochlorothiazide 25 MG / Triamterene 37.5 MG Oral Capsule triamterene 37.5 mg-hydrochlorothiazide 25 mg capsule TAKE ONE CAPSULE BY MOUTH DAILY triamterene 37.5 mg-hydrochlorothiazide 25 mg capsule TAKE ONE CAPSULE BY MOUTH DAILY completed hydrochlor othiazide 25 MG / triamterene 37.5 MG Oral Capsule KENOVA ([facility]) Amoxicillin 500 MG Oral Capsule amoxicil jose rafael 500 mg capsule TAKE ONE CAPSULE BY MOUTH THREE TIMES A DAY FOR 7 DAYS amoxicillin 500 mg capsule TAKE ONE CAPS ULE BY MOUTH THREE TIMES A DAY FOR 7 DAYS completed amoxicillin 500 MG Oral Capsule KENOVA ([facility]) Deblitane 0.35 mg tablet TAKE ONE TABLET BY MOUTH EVERY DAY [id number] completed Deblitane 0.35 mg tablet KENOVA ([facility]) Ketorolac Tromethamine 10 MG Oral Tablet ketorolac 10 mg tablet TAKE ONE TABLET BY MOUTH EVERY 6 HOURS FOR 5 DAYS ketorolac 10 mg tablet TAKE ONE TABLET B Y MOUTH EVERY 6 HOURS FOR 5 DAYS complet ed ketorolac tromethamine 10 MG Oral Tablet ANNIKA ([facility]) Amoxicillin 875 MG Oral Tablet amoxicill in 875 mg tablet TAKE ONE TABLET BY MOUTH EVERY 12 HOURS FOR 10 DAYS amoxicillin 875 mg tablet TAKE ONE TABLE T BY MOUTH EVERY 12 HOURS FOR 10 DAYS compl eted amoxicillin 875 MG Oral Tablet ANNIKA ([facility]) Cyclobenzaprine hydrochloride 10 MG Oral Tablet cyclobenzaprine 10 mg tablet TAKE ONE TABLET BY MOUTH THREE TIMES A DAY FOR 7 DAYS cyclobenzaprine 10 mg tablet TAKE ONE TABLET BY MOUTH THREE TIMES A DAY FOR 7 DAYS completed cyclobenzaprine hydrochloride 10 MG Oral Tablet KENOVA ([facility]) OneTouch Ultra2 Meter USE DIRECTED [id number] completed OneTouch Ultra2 Meter KENOVA ([facility]) Cefuroxime 500 MG Oral Tablet cefuroxime axetil 500 mg tablet TAKE 1 TABLET BY MOUTH TWO TIMES A DAY cefuroxime axetil 500 mg tablet TAKE 1 T ABLET BY MOUTH TWO TIMES A DAY completed cefuroxim e 500 MG Oral Tablet ANNIKA ([facility]) Metformin hydrochloride 1000 MG Oral Tab let metformin 1,000 mg tablet TAKE ONE TABLET BY MOUTH TWICE A DAY metformin 1,000 mg tablet TAKE ONE TABLE T BY MOUTH TWICE A DAY completed me tformin hydrochloride 1000 MG Oral Tablet ANNIKA ([facility]) valacyclovir 1000 MG Oral Tablet valacyc lovir 1 gram tablet TAKE ONE TABLET BY MOUTH TWO TIMES A DAY FOR 3 DAYS valacyclovir 1 gram tablet TAKE ONE TABL ET BY MOUTH TWO TIMES A DAY FOR 3 DAYS compl eted valacyclovir 1000 MG Oral Tablet KENOVA ([facility]) 0.5 ML dulaglutide 1.5 MG/ML Auto-Inject or [Trulicity] Trulicity 0.75 mg/0.5 mL subcutaneous pen injector INJECT 0.75MG UNDER THE SKIN ONCE A WEEK Trulicity 0.75 mg/0.5 mL subcutaneous pen injector INJECT 0.75MG UNDER THE SKIN ONCE A WEEK completed 0.5 ML dulaglutide 1.5 MG/ML Auto-Injector [Trulicity] KENOVA ([facility]) Prednisone 10 MG Oral Tablet prednisone 10 mg tablet TAKE 2 TABLETS BY MOUTH ONCE A DAY prednisone 10 mg tablet TAKE 2 TABLETS BY MOUTH ONCE A DAY completed prednisone 10 MG Oral Tablet KENOVA ([facility]) Cyclopentolate hydrochloride 10 MG/ML Op hthalmic Solution cyclopentolate 1 % eye drops INSTILL 1 DROP INTO LEFT EYE TWO TIMES A DAY DIRECTED cyclopentolate 1 % eye drops INSTILL 1 DROP INTO LEFT EYE TWO TIMES A DAY DIRECTED completed cyclopentolate hydrochloride 10 MG/ML Ophthalmic Solution KENOVA ([facility]) prednisolone acetate 10 MG/ML Ophthalmic Suspension prednisolone acetate 1 % eye drops,suspension INSTILL 1 DROP INTO THE LEFT EYE DIRECTED EVERY HOUR prednisolone acetate 1 % eye drops,suspension INSTILL 1 DROP INTO THE LEFT EYE DIRECTED EVERY HOUR completed prednisolone acetate 10 MG/ML Ophthalmic Suspension KENOVA ([facility]) Acetaminophen 325 MG / Hydrocodone Reema [...] hydrocodone bitartrate 5 MG Oral Tablet ANNIKA ([facility]) Fluconazole 150 MG Oral Tablet fluconazo le 150 mg tablet TAKE 1 TABLET BY MOUTH FOR 1 DOSE THEN 1 TABLET IN 3 DAYS fluconazole 150 mg tablet TAKE 1 TABLET BY MOUTH FOR 1 DOSE THEN 1 TABLET IN 3 DAYS completed fluconazole 150 MG Oral Tablet ANNIKA ([facility]) Triamcinolone Acetonide 1 MG/ML Topical Cream triamcinolone acetonide 0.1 % topical cream APPLY TO HANDS TWO TIMES A DAY FOR 14 DAYS AVOID CREAM TO FACE triamcinolone acetonide 0.1 % topical cream APPLY TO HANDS TWO TIMES A DAY FOR 14 DAYS AVOID CREAM TO FACE completed triamcinolone acetonide 1 MG/ML Topical Cream ANNIKA ([facility]) Atenolol 100 MG Oral Tablet atenolol 100 mg tablet TAKE ONE TABLET BY MOUTH DAILY atenolol 100 mg tablet TAKE ONE TABLET BY MOUTH DAILY completed atenolol 100 MG Oral Tablet ATHRanulfo TUCKER ([facility]) Cephalexin 500 MG Oral Capsule cephalexi n 500 mg capsule TAKE ONE CAPSULE BY MOUTH TWICE A DAY DIRECTED FOR 10 DAYS cephalexin 500 mg capsule TAKE ONE CAPSULE BY MOUTH TWICE A DAY DIRECTED FOR 10 DAYS completed cephalexin 500 MG Oral Capsule ANNIKA ([facility]) Insurance Providers Payer name Policy type / Coverage type Policy ID Covered green party ID Covered green party's relationship to goldberg Policy Goldberg Plan Information [facility] [id number] SP [id number] Medicaid S [id number] S [id number] MEDICAID P [id number] S [id number] Managed Care - [facility] P [id number] S [id number] Medicaid S [id number] S [id number] Managed Care - [employer] P [id number] S [id number] [facility] Community Plan Commercial Self Managed Care - [employer] P [id number] S [id number] [facility] Comm Plan Medicaid F SELF [facility] MEDICAID [id number] Cynthia [id number] Medicaid S [id number] S [id number] Managed Care - [employer] P [id number] S [id number] [facility] I Self [id number] [employer] COMMUNITY PLAN MCDHMO [id number] SP [id number] Medicaid S [id number] S [id number] Managed Care - [facility] P [id number] S [id number] [facility] O [id number] S [id number] MEDICAID [id number] SP [id number] ANSI-Medicaid [id number] ANSI-Medicaid [id number] ANSI-Medicaid [id number] ANSI-Medicaid [id number] ANSI-Medicaid [id number] ANSI-Medicaid [id number] Medicaid S [id number] S [id number] Managed Care - [facility] P [id number] S [id number] [facility] Health Maintenance Organization (HMO) [id number] Self [id number] [facility] Health Maintenance Organization (HMO) [id number] Self [id number] [facility] Health Maintenance Organization (HMO) [id number] Self [id number] [facility] Health Maintenance Organization (HMO) [id number] Self [id number] [facility] Health Maintenance Organization (HMO) [id number] Self [id number] Managed Care - [facility] P [id number] S [id number] MEDICAID M [id number] Self [id number] [facility] I [id number] Self [id number] Medicaid S [id number] S [id number] [facility] MCDO [id number] SP [id number] Managed Care - [facility] Community Plan P [id number] S [id number] SELF PAY ONLY [id number] SP [id number] Medicaid S [id number] S [id number] Managed Care [facility] Community Plan P [id number] S [id number] Problems, Conditions, and Diagnoses Code Display Name Description Problem Type Effective Dates Data Source(s) F41.9 Anxiety disorder, unspecified Unspecified Anxiety Diso rder Condition 04/07/2020 12:00:00 AM EST [facility] ([facility]) F31.9 Bipolar disorder, unspecified Bipolar I Disorder, Current or most recent episode unspecified Condition 04/07/2020 12:00:00 AM EST [facility] ([facility]) [id number] Nausea Nausea Problem 03/11/2020 12:00:00 AM ES Rani ROBLERO ([facility]) [id number] Type 2 diabetes mellitus Type 2 Diabetes Mellitus Prob carrie 03/11/2020 12:00:00 AM EST ANNIKA ([facility]) [id number] Abnormal cytology findings Abnormal Cytology Findings Problem 12/11/2019 05:29:00 PM EDT ANNIKA ([facility]) [id number] Asthma Asthma Problem 12/11/2019 05:29:00 PM ED T ANNIKA ([facility]) 07689554 Hypertensive disorder Hypertensive Disorder Problem 12/11/2019 05:29:00 PM EDT ANNIKA ([facility]) 51460827 Depressive disorder Depressive Disorder Problem 1 05:29:00 PM EDT ANNIKA ([facility]) 06310618 Hypothyroidism Hypothyroidism Problem 12/11/2019 05:29: 00 PM EDT KENOVA ([facility]) 788.30 Urinary incontinence Urinary incontinence 07/03 02:29:56 PM EDT [facility] [id number] Clinical history and observation finding s Clinical History and Observation Findings Problem 07/04/2019 12:00:00 AM EDT ANNIKA ([facility]) L02.214 Cutaneous abscess of groin Cutaneous abscess of groin 03/04/2019 02:03:37 PM EST [facility] 250.80 Type 2 diabetes mellitus with hyperglyce bryan Type 2 diabetes mellitus with hyperglycemia 03/04/2019 02:03:37 PM [facility] [id number] Evaluation finding Evaluation Finding Problem 08/2019 12:00:00 AM EMMY ROBLERO ([facility]) 29140351 Abscess of groin Abscess of Groin Problem 03/04/2019 12 :00:00 AM EST ANNIKA ([facility]) Surgeries/Procedures Procedure Description Date Indications Data Source(s) [facility] Telemed E/M Lvl 3--Est pt 04/07/2020 12:00:00 AM EST - 04/07/2020 12:00:00 AM EST [facility] ([facility]) MHC Telemed E/M Lvl 3--Est pt 04/07/2020 12:00:[address] [facility] ([facility]) MHC Telemed E/M Lvl 3--Est pt 03/10/2020 12:00:[address] [facility] ([facility]) MHC Telemed E/M Lvl 3--Est pt 03/10/2020 12:00:00 AM EST - 03/10/2020 12:00:00 AM EST [facility] ([facility]) MHC Telemed E/M Lvl 3--Est pt 07/30/2019 12:00:00 AM E DT [facility] ([facility]) MHC Telemed E/M Lvl 3--Est pt 07/30/2019 12:00:00 AM EDT - 07/30/2019 12:00:00 AM EDT [facility] ([facility]) [id number]"Psychotherapy 06/20/2019 12:00:00 AM EDT [facility] ([facility]) [id number]"Psychotherapy 0 12:00:00 AM EDT - 06/20/2019 12:00:00 AM EDT [facility] ([facility]) MHC Telemed E/M Lvl 3--Est pt 05/28/2019 12:00:00 AM E DT [facility] ([facility]) [facility] Telemed E/M Lvl 3--Est pt 05/28/2019 12:00:00 AM EDT - 05/28/2019 12:00:00 AM EDT [facility] ([facility]) MHC Telemed E/M Lvl 3--Est pt 05/22/2019 12:00:00 AM E DT [facility] ([facility]) [facility] Telemed E/M Lvl 3--Est pt 05/22/2019 12:00:00 AM EDT - 05/22/2019 12:00:00 AM EDT [facility] ([facility]) Brief Individual Psychotherapy - 30 min 04/14/2019 12: 00:00 AM EST [facility] ([facility]) Brief Individual Psychotherapy - 30 min 04/14/2019 12:00:00 AM EST - 04/14/2019 12:00:00 AM EST [facility] ([facility]) I & D Abscess Simple 03/25/2019 12:00:00 AM EST MEDENT ([facility], ) OFFICE OUTPATIENT VISIT 15 MINUTES 02/20/2019 12:00:00 AM EST [facility] ([facility]) OFFICE OUTPATIENT VISIT 15 MINUTES 02/20 12:00:00 AM EST - 02/20/2019 12:00:00 AM EST [facility] ([facility]) Results ID Date Data Source [id number] 03/29/2020 11:47:00 PM EST [facility] Name Value Range Interpretation Code Description Data Kate rce(s) Supporting Document(s) SARS-CoV-2 (COVID 19) NEGATIVE - SARS-CoV-2 (COVID19) [facility] This lab was ordered by [facility] a nd reported by [facility]. ID Date Data Source [id number] 03/29/2020 07:36:00 PM EST [facility] Name Value Range Interpretation Code Description Data Kate rce(s) Supporting Document(s) SARS COVID ANTIGEN NEGATIVE [facility] This lab was ordered by [facility] a nd reported by [facility]. ID Date Data Source [id number] 02/27/2020 04:59:00 AM EST [facility] Name Value Range Interpretation Code Description Data Kate rce(s) Supporting Document(s) SARS coronavirus 2 RNA [Presence] in Res piratory specimen by SARA with probe detection [facility] This lab was ordered by [facility] a nd reported by [facility]. ID Date Data Source [id number] 07/04/2019 02:07:28 PM EDT [facility] Measurements [...] you seen a dentist? Yes - fior dental Intake performed by: Jamarcus Lopez MA, [...] during this visit, including review of any gsyv-tgs-zjwryfp medications, herbal therapies, and/or supplements.Allergy ReviewAllergy List [...] incontinence (ICD-788.30) (ICD10- R32)Assessment not SavedUrinary incontinence (IDR87-H25): refer to urologyMedications:CEFUROXIME AXETIL 500 MG ORAL [...] ElectronicAllergies:No Known Allergies (updated 04/29/2019) Orders:Surgical Consult [CPT-41299] Adult - Ofc Vst, EST, Level III [CPT-67672] Urology Consult [CPT-72367] Medications:CEFUROXIME AXETIL 500 MG ORAL TABLET (CEFUROXIME AXETIL) one tab po BID #30[Tablet] x 0 Route:ORAL Entered and Authorized by: Venkatesh Valentine DO Method used: Electronically to [facility] ([place]) [address] [place] [address] Note to Pharmacy: Route: ORAL; RxID: [id number] signed by Venkatesh Valentine DO on 07/04/2019 [...] rce(s) Supporting Document(s) ID Date Data Source [id number] 04/29/2019 10:10:00 AM [facility] Name Value Range Interpretation Code Description Data Kate rce(s) Supporting Document(s) HGBA1C 9.1 % N [facility] ID Date Data Source [id number] 04/29/2019 09:35:22 AM [facility] Measurements & CalculationsHeight: 64.50 inches 163.83 [...] you seen a dentist? Yes - fior dentalRate Your HealthIn general, would you say [...] during this visit, including review of any hwbj-mnr-baycvxk medications, herbal therapies, and/or supplements.Allergy ReviewAllergy List [...] Problems:Assessed:Type 2 diabetes mellitus with hyperglycemia (ICD-250.80) (BDN42-L52.65) Assessment: Instructions: Recommend low carbohydrate diet: reduce [...] call with any concerns.Cutaneous abscess of groin (UKN00-S98.214) Assessment: Instructions: Resolved, signed for records today from your surgeon.HYPERTENSION (ICD-401.9) (GIJ94-H08) Assessment: Instructions: Appears at goal today. Recommend reduced salt intake, cut back on caffeine and alcohol, increase physical activity. We reviewed the salvage determiner risks associated with uncontrolled high blood pressure, [...] alcohol, increase physical activity. We reviewed the salvage determiner risks associated with uncontrolled high blood pressure, [...] ORAL TABLETAllergies:No Known Allergies (updated 04/29/2019) Orders:HgBA1c [CPT-61102] 68185 - Venipuncture [CPT-47634] Adult - Ofc Vst, EST, Level III [CPT-95912] Follow-Up Return to clinic: in 90 days for follow upAdditional Follow-Up: T2DM, HTNClinical Visit Summary Completed]Labs In-House Blood TestsDate/Time Collected: April 29, 2019 10:13 AMTest Result Reference Range Normal ValueComments: labs done in office, taken from right ac, tolerated well.Josefina Díaz, April 29, 2019 10:13 AM Name Value Range Interpretation Code Description Data Kate rce(s) Supporting Document(s) ID Date Data Source [id number] 03/04/2019 01:02:54 PM EST [facility] Measurements [...] at this appointment. Pt was admitted to [facility] on 02/21/19 for abscesses of the groin. During admission, patient was brought to the OR on 02/21/19 for an I&D by Dr. Harrington. Discharged 02/26/2019. Discharge summary reviewed, recommendation was for 10 days total of Augmentin, intended to be started on 02/26/2019, and dressing changes every 2 days. Pt reports she is unable to perform dressing changes independently. 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 FairAssessment & Plan Problems:Added: Cutaneous abscess of groin (FOS73-Z08.214) Assessment: Instructions: Wound care and dressing changes provided in the office today. Referral generated for general surgical outpatient followup as well as home care for dressing changes. ER precautions for worsening symptoms. Appointment given here for 03/06/2019 for dressing change if home care is unable to have a visit by 03/06/2019.Type 2 diabetes mellitus with hyperglycemia (ICD-250.80) (TPN98-U99.65) Assessment: Instructions: Reiterated the importance of diabetic control with wound healing.Cutaneous abscess of groin (YOC47-L42.214) Assessment: Time spent 15 minutes, in addition [...] TABLETAllergies:No Known Allergies (updated 03/04/2019) Orders:Surgical Consult [CPT-98383] Other Referral [[id number]] Adult - Ofc Vst, EST, Level IV [CPT-46349] Follow-Up Return to clinic: in 2-3 days for follow upAdditional Follow-Up: wound care, 2 weeks (or soonest available) diabetes follow-up with Dr. Gerardlinical Visit Summary Completed Name Value Range Interpretation Code Description Data Kate rce(s) Supporting Document(s) Procedure Social History Code Duration Value Status Description Data Source(s ) Smoking 04/07/2020 12:00:00 AM EST Unknown if ever smoked comp leted Unknown if ever smoked [facility] ([facility]) Smoking 03/10/2020 12:00:00 AM EST Unknown if ever smoked comp leted Unknown if ever smoked [facility] ([facility]) Smoking 07/30/2019 12:00:00 AM EDT Unknown if ever smoked comp leted Unknown if ever smoked [facility] ([facility]) Smoking 06/20/2019 12:00:00 AM EDT Unknown if ever smoked comp leted Unknown if ever smoked [facility] ([facility]) Smoking 05/28/2019 12:00:00 AM EDT Unknown if ever smoked comp leted Unknown if ever smoked [facility] ([facility]) Smoking 05/22/2019 12:00:00 AM EDT Unknown if ever smoked comp leted Unknown if ever smoked [facility] ([facility]) Smoking 04/14/2019 12:00:00 AM EST Unknown if ever smoked comp leted Unknown if ever smoked [facility] ([facility]) Smoking 02/20/2019 12:00:00 AM EST Unknown if ever smoked comp leted Unknown if ever smoked [facility] ([facility]) Vital Signs ID Date Data Source UNK Name Value Range Interpretation Code Description Data Source(s) Body weight 2932 [oz_av] 2932 [oz_av] ANNIKA ([facility]) Systolic blood pressure 123 mm[Hg] 123 mm[Hg] A THENA ([facility]) Body mass index (BMI) [Ratio] 31 kg/m2 31 kg/ m2 ANNIKA ([facility]) Body height 64.5 [in_i] 64.5 [in_i] ANNIKA ([facility]) Diastolic blood pressure 91 mm[Hg] 91 mm[Hg] ANNKIA ([facility]) Body height 0.00 in Normal (applies to non-numeric resu lts) 0.00 in [facility] ([facility]) Body weight Measured 212.00 lbs Normal (applies to n on-numeric results) 212.00 lbs [facility] ([facility]) Body mass index (BMI) [Ratio] 0.00 kg/m2 No rmal (applies to non-numeric results) 0.00 kg/m2 [facility] ([facility]) Systolic blood pressure 0 mm[Hg] Normal (applies t o non-numeric results) 0 mm[Hg] [facility] ([facility]) Diastolic blood pressure 0 mm[Hg] Normal (applies to non-numeric results) 0 mm[Hg] [facility] ([facility]) Systolic blood pressure 136 mm[Hg] 136 mm[Hg] M EDENT ([facility] [place], [facility]) Diastolic blood pressure 94 mm[Hg] 94 mm[Hg] MEDENT ([facility] [place], [facility]) Heart rate 101 /min 101 /min MEDENT ([facility], [facility]) Respiratory rate 12 /min 12 /min MEDENT ( [facility] [place], [facility]) Oxygen saturation in Arterial blood by Pulse oximetry 98 % 98 % MEDENT ([facility], [facility]) Body weight 202.00 [lb_av] 202.00 [lb_av] MEDEN T ([facility] [place], [facility]) Body height 65 [in_i] 65 [in_i] MEDENT ([facility], [facility]) 5'5" Body mass index (BMI) [Ratio] 33.6 kg/m2 33.6 k g/m2 [facility] ([facility], [facility]) Systolic blood pressure 137 mm[Hg] 137 mm[Hg] [facility], [facility]) Diastolic blood pressure 92 mm[Hg] 92 mm[Hg] [facility] ([facility], [facility]) Heart rate 80 /min 80 /min [facility] ([facility], [facility]) Oxygen saturation in Arterial blood by Pulse oximetry 98 % 98 % [facility] ([facility], [facility]) Body temperature 97.9 [degF] 97.9 [degF] [facility] ([facility], [facility]) Body weight 202.00 [lb_av] 202.00 [lb_av] MEDEN T ([facility], [facility]) Body height 65 [in_i] 65 [in_i] [facility] ([facility], [facility]) 5'5" Body mass index (BMI) [Ratio] 33.6 kg/m2 33.6 k g/m2 [facility] ([facility], [facility]) Body height 0.00 in Normal (applies to non-numeric resu lts) 0.00 in [facility] ([facility]) Body weight Measured 0.00 lbs Normal (applies to n on-numeric results) 0.00 lbs [facility] ([facility]) Body mass index (BMI) [Ratio] 0.00 kg/m2 No rmal (applies to non-numeric results) 0.00 kg/m2 [facility] ([facility]) Systolic blood pressure 0 mm[Hg] Normal (applies t o non-numeric results) 0 mm[Hg] [facility] ([facility]) Diastolic blood pressure 0 mm[Hg] Normal (applies to non-numeric results) 0 mm[Hg] [facility] ([facility]) Systolic blood pressure 118 mm[Hg] 118 mm[Hg] [facility], [facility]) Diastolic blood pressure 86 mm[Hg] 86 mm[Hg] [facility] ([facility], [facility]) Heart rate 69 /min 69 /min MEDENT ([facility] [place], [facility]) Respiratory rate 17 /min 17 /min MEDENT ( [facility], [facility]) Oxygen saturation in Arterial blood by Pulse oximetry 96 % 96 % MEDENT ([facility], [facility]) Body temperature 98.7 [degF] 98.7 [degF] MEDENT ([facility], [facility]) Body weight 213.00 [lb_av] 213.00 [lb_av] MEDEN T ([facility], [facility]) Body height 65 [in_i] 65 [in_i] [facility] 5'5" Body mass index (BMI) [Ratio] 35.4 kg/m2 35.4 k g/m2 [facility] ([facility]) Systolic blood pressure 117 mm[Hg] 117 mm[Hg] M EDENT ([facility], ) Diastolic blood pressure 79 mm[Hg] 79 mm[Hg] [facility]) Body height 65 [in_i] 65 [in_i] [facility] ([facility]) 5'5" Body weight 215.25 [lb_av] 215.25 [lb_av] MEDEN T ([facility]) Body mass index (BMI) [Ratio] 35.8 kg/m2 35.8 k g/m2 [facility] ([facility]) Body weight 97.637 kg 97.[address] [facility] ([facility]) Body weight 3570.08 [oz_av] 3570.08 [oz_av] ATH ALBER ([facility]) Systolic blood pressure 107 mm[Hg] 107 mm[Hg] A THENA ([facility]) Body height 64.5 [in_i] 64.5 [in_i] ANNIKA ([facility]) Diastolic blood pressure 77 mm[Hg] 77 mm[Hg] ANNIKA ([facility]) Body mass index (BMI) [Ratio] 0.00 kg/m2 No rmal (applies to non-numeric results) 0.00 kg/m2 [facility] ([facility] [place] [place]) Systolic blood pressure 0 mm[Hg] Normal (applies t o non-numeric results) 0 mm[Hg] [facility] ([facility]) Diastolic blood pressure 0 mm[Hg] Normal (applies to non-numeric results) 0 mm[Hg] [facility] ([facility]) Body height 0.00 in Normal (applies to non-numeric resu lts) 0.00 in [facility] ([facility]) Body weight Measured 0.00 lbs Normal (applies to n on-numeric results) 0.00 lbs [facility] ([facility]) Body weight 3440 [oz_av] 3440 [oz_av] ANNIKA ([facility]) Systolic blood pressure 124 mm[Hg] 124 mm[Hg] A THENA ([facility]) Body height 64.5 [in_i] 64.5 [in_i] ANNIKA ([facility]) Diastolic blood pressure 83 mm[Hg] 83 mm[Hg] ANNIKA ([facility]) Systolic blood pressure 144 mm[Hg] 144 mm[Hg] [facility], [facility] Diastolic blood pressure 92 mm[Hg] 92 mm[Hg] [facility] ([facility], ) Heart rate 71 /min 71 /min [facility] ([facility], ) Body height 65 [in_i] 65 [in_i] [facility] ([facility], ) 5'5" Body weight 216.00 [lb_av] 216.00 [lb_av] MEDEN T ([facility], ) Body mass index (BMI) [Ratio] 35.9 kg/m2 35.9 k g/m2 [facility] ([facility], ) Body weight 97.978 kg 97.978 kg [facility] ([facility], ) Systolic blood pressure 159 mm[Hg] 159 mm[Hg] M EDENT ([facility], ) Diastolic blood pressure 103 mm[Hg] 103 mm[Hg] MEDENT ([facility], ) Body height 65 [in_i] 65 [in_i] [facility] ([facility]) 5'5" Body weight 218.00 [lb_av] 218.00 [lb_av] MEDEN T ([facility]) Body mass index (BMI) [Ratio] 36.3 kg/m2 36.3 k g/m2 [facility] ([facility]) Body weight 98.885 kg 98.[address] [facility] ([facility]) Body weight 3408 [oz_av] 3408 [oz_av] ANNIKA ([facility]) Systolic blood pressure 124 mm[Hg] 124 mm[Hg] A THENA ([facility]) Body height 64.5 [in_i] 64.5 [in_i] ANNIKA ([facility]) Diastolic blood pressure 86 mm[Hg] 86 mm[Hg] ANNIKA ([facility]) Systolic blood pressure 126 mm[Hg] 126 mm[Hg] M EDENT ([facility], [facility]) Diastolic blood pressure 84 mm[Hg] 84 mm[Hg] [facility] ([facility], [facility]) Heart rate 103 /min 103 /min [facility] ([facility], [facility]) Oxygen saturation in Arterial blood by Pulse oximetry 97 % 97 % [facility] ([facility], [facility]) Body temperature 97.6 [degF] 97.6 [degF] [facility] ([facility], [facility]) Body weight 214.00 [lb_av] 214.00 [lb_av] MEDEN T ([facility], [facility]) Body height 65 [in_i] 65 [in_i] [facility] ([facility]) 5'5" Body mass index (BMI) [Ratio] 35.6 kg/m2 35.6 k g/m2 [facility] ([facility]) Patient Treatment Plan of Care Planned Activity Planned Date Details Description Data Source (s) valacyclovir 1000 MG Oral Tablet ANNIKA ([facility]) 0.5 ML dulaglutide 1.5 MG/ML Auto-Injector [Trulicity] ANNIKA ([facility]) Hydrochlorothiazide 25 MG / Triamterene 37.5 MG Oral Capsule ANNIKA ([facility]) Triamcinolone Acetonide 1 MG/ML Topical Cream ANNIKA ([facility]) tizanidine 4 MG Oral Tablet ANNIKA ([facility]) terconazole 4 MG/ML Vaginal Cream ANNIKA ([facility]) Prednisone 10 MG Oral Tablet ANNIKA ([facility]) prednisolone acetate 10 MG/ML Ophthalmic Suspension ANNIKA ([facility]) OneTouch Ultra2 Meter USE DIRECTED ANNIKA ([facility]) OneTouch Ultra Blue Test Strip TEST FOUR TIMES A DAY ANNIKA ([facility]) OneTouch Delica Plus Lancet 33 gauge TEST FOUR TIMES A DAY ANNIKA ([facility]) Metformin hydrochloride 1000 MG Oral Tablet ANNIKA ([facility]) Ketorolac Tromethamine 10 MG Oral Tablet NANIKA ([facility]) Acetaminophen 325 MG / Hydrocodone Bitartrate 5 MG Oral Tablet ANNIKA ([facility]) chlorhexidine gluconate 40 MG/ML Medicated Liquid Soap [Hibiclens] ANNIKA ([facility]) Fluconazole 150 MG Oral Tablet ANNIKA ([facility]) Fluconazole 100 MG Oral Tablet ANNIKA ([facility]) Fenofibrate 160 MG Oral Tablet ANNIKA ([facility]) Deblitane 0.35 mg tablet TAKE ONE TABLET BY MOUTH EVERY DAY ANNIKA ([facility]) Cyclopentolate hydrochloride 10 MG/ML Ophthalmic Solution ANNIKA ([facility]) Cyclobenzaprine hydrochloride 10 MG Oral Tablet ANNIKA ([facility]) Cholecalciferol 2000 UNT Oral Tablet ANNIKA ([facility]) Cephalexin 500 MG Oral Capsule ANNIKA ([facility]) Cefuroxime 500 MG Oral Tablet ANNIKA ([facility]) buspirone hydrochloride 15 MG Oral Tablet ANNIKA ([facility]) Amoxicillin 875 MG / Clavulanate 125 MG Oral Tablet [Augmentin] ANNIKA ([facility]) atorvastatin 10 MG Oral Tablet ANNIKA ([facility]) Atenolol 100 MG Oral Tablet ANNIKA ([facility]) aripiprazole 10 MG Oral Tablet ANNIKA ([facility]) Amoxicillin 875 MG Oral Tablet ANNIKA ([facility]) Amoxicillin 500 MG Oral Capsule KENOVA ([facility])
[2020-04-16] MEDS ORDERED: PROMETHAZINE INJ 25 MG/ML VIAL (J2550) IV ONE (11:15)
[2020-04-16 11:22] LABS: BASO # 0.1 10^3/uL (0.0-0.2); BASO % 0.5 % (0.0-1.0); EOS # 0.2 10^3/uL (0.0-0.5); EOS % 2.3 % (0.0-3.0); HEMATOCRIT 45.4 % (36.0-47.0); HEMOGLOBIN 15.9 g/dl (12.0-15.5); LYMPH # 2.4 10^3/uL (1.5-5.0); LYMPH % 24.2 % (24.0-44.0); MEAN CORPUSCULAR HEMOGLOBIN 30.4 pg (27.0-33.0); MEAN CORPUSCULAR VOLUME 86.8 fl (80.0-96.0); MONO # 0.6 10^3/uL (0.0-0.8); MONO % 5.9 % (2.0-8.0); NEUTROPHILS # 6.5 10^3/uL (1.5-8.5); NEUTROPHILS % 66.8 % (36.0-66.0); PLATELET COUNT, AUTOMATED 308 10^3/uL (150-450); RED BLOOD COUNT 5.23 10^6/uL (4.00-5.40); WHITE BLOOD COUNT 9.7 10^3/uL (4.0-10.0)
[2020-04-16 11:56] LABS: ALT/SGPT 20 U/L (12-78); BILIRUBIN,DIRECT 0.1 MG/DL (0.0-0.2); BILIRUBIN,TOTAL 0.8 MG/DL (0.2-1.0); LIPASE 61 U/L (73-393); TOTAL PROTEIN 7.1 GM/DL (6.4-8.2)
[2020-04-16] MEDS ORDERED: POTASSIUM CHLORIDE 10 MEQ SR TABLET PO ONE ×2 (12:00→15:45)
[2020-04-16] MEDS ORDERED: KCL 10MEQ/100ML SWI (KRUN) 10 MEQ in IV 1 EA IV ONE (12:00)
--- NOTE | 2020-04-16 12:36 | REP ---
INDICATION: trauma. COMPARISON: None. TECHNIQUE: AP pelvis and AP and frogleg views of the left hip are presented. FINDINGS: Bony pelvic ring is intact. No pelvic fracture or sacral fracture is seen. Proximal femurs are intact. There is mild tendon insertion site spurring on the greater trochanter. Femoral head is smooth and rounded hip joint space is preserved. IMPRESSION: No fracture or subluxation seen. Mild tendon insertion site spurring. No acute bony abnormality. <Electronically signed by Sunny Rivers > 04/16/20 [id number]
--- NOTE | 2020-04-16 12:37 | REP ---
INDICATION: trauma. COMPARISON: Comparison radiographs May 15, 2007.. TECHNIQUE: Five views. FINDINGS: There are surgical clips in right upper quadrant. Psoas margins are symmetric. Lumbar vertebral body heights are preserved. Alignment is normal. There is degenerative disc disease in the lower lumbar and lower thoracic disc levels. Discogenic spurring is noted along with disc space narrowing at L4-5 and L3-4 in the lumbar spine. There is no evidence of spondylolysis or spondylolisthesis. No transverse process or posterior element fracture is seen. Sacrum is unremarkable. IMPRESSION: Degenerative spondylosis changes. No traumatic abnormality noted. Right upper quadrant clips. <Electronically signed by Sunny Rivers > 04/16/20 [id number]
[2020-04-16 13:34] LABS: HCG, SERUM QUALITATIVE NEGATIVE (NEGATIVE)
[2020-04-16 14:41] LABS: CK-MB VALUE MASS < 1.0 NG/ML (<3.6); CPK CREATINE PHOSPHOKINASE 73 U/L (26-192); MB/CK RELATIVE INDEX 1.37 (< OR =4); TROPONIN I < 0.02 NG/ML (< 0.10)
[2020-04-16] MEDS ORDERED: TRUL0.5I SC (15:35)
[2020-04-16] MEDS ORDERED: SPIR-10 PO (15:35)
--- OUTSIDE RECORDS SUMMARY | 2020-04-16 15:38 | CCD ---
Author Author [facility] Organization [facility] Address Unknown Phone Unavailable Care Team Providers Care Hat Measurer Name Role Phone Kelly Kumar MD Unavailable [...] Unavailable Kayli Rojas MD Unavailable Unavailable Kayli Roajs MD Unavailable Unavailable Kayli Rojas MD Unavailable [...] Unavailable Unavailable Rani ESTRADA MD Unavailable Unavailable Rnai ESTRADA MD Unavailable Unavailable Rani ESTRADA MD [...] LYNDA, ELSA PA Unavailable Unavailable MACQUEEN, DIPTI BOOSTER STATION OPERATOR Unavailable Unavailable MACQUEEN, DIPTI BOOSTER STATION OPERATOR Unavailable Unavailable MACQUEEN, DIPTI BOOSTER STATION OPERATOR Unavailable Unavailable MACQUEEN, DIPTI BOOSTER STATION OPERATOR Unavailable Unavailable MACQUEEN, DIPTI BOOSTER STATION OPERATOR Unavailable Unavailable MACQUEEN, DIPTI BOOSTER STATION OPERATOR Unavailable Unavailable MACQUEEN, DIPTI BOOSTER STATION OPERATOR Unavailable Unavailable MACQUEEN, DIPTI BOOSTER STATION OPERATOR Unavailable Unavailable MACQUEEN, DIPTI BOOSTER STATION OPERATOR Unavailable Unavailable MACQUEEN, DIPTI BOOSTER STATION OPERATOR Unavailable Unavailable MACQUEEN, DIPTI BOOSTER STATION OPERATOR Unavailable Unavailable Lino, Syl SPECIAL WE[employer] UNIT OFFICER SPECIAL WE[employer]ONS UNIT OFFICER Unavailable Unavailable Jolene Pierre Unavailable Lino, A Syl [employer]IT OFFICER Unavailable Unavailable Lino, A Syl SPECIAL WE[employer] UNIT OFFICER Unavailable Unavailable Lino, A Syl SPECIAL WE[employer] UNIT OFFICER Unavailable Unavailable Lino, A Syl SPECIAL WE[employer] UNIT OFFICER Unavailable Unavailable Lino, A Syl SPECIAL WE[employer] UNIT OFFICER Unavailable Unavailable Lino, A Syl SPECIAL WE[employer] UNIT OFFICER Unavailable Unavailable Lino, A Syl SPECIAL WE[employer] UNIT OFFICER Unavailable Unavailable Lino, A Syl SPECIAL WEAP[employer] UNIT OFFICER Unavailable Unavailable Lino, A Syl SPECIAL WEAP[employer] UNIT OFFICER Unavailable Unavailable Lino, A Syl SPECIAL WE[employer] UNIT OFFICER Unavailable Unavailable Lino, A Syl SPECIAL WE[employer] UNIT OFFICER Unavailable Unavailable Lino, A Syl SPECIAL WE[employer] UNIT OFFICER Unavailable Unavailable Lino, A Syl [employer] WE[employer]IT OFFICER Unavailable Unavailable Lino, A Syl [employer]IT OFFICER Unavailable Unavailable Lino, A Syl [employer]IT OFFICER Unavailable Unavailable Lino, A Syl [employer] WE[employer] UNIT OFFICER Unavailable Unavailable Lino, A Syl [employer] UNIT OFFICER Unavailable Unavailable Lino, A Syl SPECIAL WE[employer] UNIT OFFICER Unavailable Unavailable Lino, A Syl [employer]IT OFFICER Unavailable Unavailable Lino, A Syl SPECIAL [employer] UNIT OFFICER Unavailable Unavailable Lino, A Syl [employer] UNIT OFFICER Unavailable Unavailable Lino, A Syl [employer] UNIT OFFICER Unavailable Unavailable Lino, A Syl [employer] UNIT OFFICER Unavailable Unavailable Lino, A Syl [employer] UNIT OFFICER Unavailable Unavailable Lino, A Syl [employer] UNIT OFFICER Unavailable Unavailable Lino, A Syl [employer] UNIT OFFICER Unavailable Unavailable Lino, A Syl [employer]IT OFFICER Unavailable Unavailable Lino, A Syl [employer] OFFICER Unavailable Unavailable LETTIERE, A JESSICA PA Unavailable [...] is protected by Article 27-F of the [facility] Public Health law. If you continue you may have access to information: Regarding HIV / AIDS; Provided by facilities licensed or operated by the [facility] Office of Mental Health; or Provided by the [facility] Office for People With Developmental Disabilities. If such information is present, then the following [facility] mandated warning applies: This information has [...] law may result in a fine or fdc sentence or both. A general authorization for the release of medical or other information is NOT sufficient authorization for further disc losure. Allergies and Adverse Reactions Type Description Substance Reaction Status Data Source(s ) Allergy to substance Allergy to substance Allergy to substance ANNIKA ([facility]) Family History Family Member Name Family Member Gender Family Member Status Date o f Status Description Data Source(s) Unknown Unknown Problem MEDENT ([facility]) Unknown Unknown Problem MEDENT ([facility]) Unknown Male Problem MEDENT ([facility]) Encounters Encounter Providers Location Date Indications Data Source(s ) Outpatient Attender: DIPTI GARCIA NP [facility] 04/07/2020 11:00:00 AM EST - 04/07/2020 11:00:00 AM EST [facility] ([facility]) Attender: DIPTI GARCIA NP 04/07/2020 12:00:00 AM EST [facility] ([facility]) Williams Rojas MD: [address] [place] [phone], Ph. Attender: Williams Rojas MD [facility] Medical 03/11/2020 12:00:00 AM EST ANNIKA ([facility]) Outpatient Attender: DIPTI GARCIA NP [facility] Gigi l 03/10/2020 11:30:00 AM EST - 03/10/2020 11:30:00 AM EST [facility] ([facility]) Attender: DIPTI GARCIA NP 03/10/2020 12:00:00 AM EST [facility] ([facility]) Outpatient Attender: Milagros dumonty 12/04/2019 05:20:00 PM EDT MEDENT ([facility]) Outpatient Attender: NIKI MEDINA 11/26/2019 12:59:00 P M EDT [facility] Outpatient Attender: JESSICA dumonty 11/11/2019 10:15:00 AM EDT MEDENT ([facility]) Outpatient Attender: Syl MEDINA 10/28/2019 09:3 9:01 AM EDT [facility] Outpatient Attender: Syl MEDINA 10/27/2019 12:1 1:02 AM EDT [facility] Outpatient Attender: Syl MEDINA 10/01/2019 09:4 0:01 AM EDT [facility] Outpatient Attender: NIKI MEDINA 09/30/2019 04:33:00 P M EDT [facility] Outpatient Attender: Syl MEDINA 08/22/2019 10:2 9:01 AM EDT [facility] Outpatient Attender: Syl MEDINA 08/22/2019 10:0 8:01 AM EDT [facility] Outpatient Attender: Kelly Kumar MD 08/07/2019 12:00:00 A [facility] Outpatient Attender: DIPTI GARCIA NP [facility] Gigi chiang 07/30/2019 03:00:00 AM EDT - 07/30/2019 03:00:00 AM EDT [facility] ([facility]) Attender: DIPTI GARCIA NP 07/30/2019 12:00:00 AM EDT [facility] ([facility]) Outpatient Attender: NIKI MEDINA 07/29/2019 02:45:00 P M EDT [facility] Outpatient Attender: Syl Lino PRINCE 07/28/2019 06:2 0:01 PM EDT [facility] Outpatient Attender: NIKI Huynh [facility] 07/24/2019 07:48:00 A M EDT [facility] Outpatient Attender: SPECIAL WEAPONS UNIT OFFICER Lino [facility] 07/15/2019 01:34:01 P M EDT [facility] Outpatient Attender: JESSICA gregorio 07/15/2019 12:30:00 PM EDT MEDENT ([facility]) Outpatient Attender: TYSON ESTRADA MD 07/04/2019 02:37:03 P M EDT [facility] Outpatient Attender: TYSON ESTRADA MD 07/04/2019 02:30:10 P M EDT [facility] Outpatient Attender: TYSON ESTRADA MD 07/04/2019 02:30:08 P M EDT [facility] Outpatient Attender: TYSON ESTRADA MD 07/04/2019 01:58:00 P M EDT [facility] [id number]"Psychotherapy Attender: Jolene Pierre [facility] 06/20/2019 11:00:00 AM EDT - 06/20/2019 11:00:00 AM EDT [facility] ([facility]) Attender: Jolene Pierre 06/20/2019 12:00:00 AM EDT [facility] ([facility]) Outpatient Attender: DIPTI GARCIA NP [facility] 05/28/2019 04:30:00 AM EDT - 05/28/2019 04:30:00 AM EDT [facility] ([facility]) Attender: DIPTI GARCIA NP 05/28/2019 12:00:00 AM EDT [facility] ([facility]) Outpatient Attender: DIPTI GARCIA NP [facility] 05/22/2019 04:00:00 AM EDT - 05/22/2019 04:00:00 AM EDT [facility] ([facility]) Attender: DIPTI GARCIA NP 05/22/2019 12:00:00 AM EDT [facility] ([facility]) Outpatient Attender: TYSON MEDINA 05/09/2019 11:53:03 A [facility] Outpatient Attender: TYSON ESTRADA MD 05/09/2019 11:53:01 A [facility] Outpatient Attender: TYSON MEDINA 05/08/2019 11:22:47 A [facility] Outpatient Attender: Francheska Mast 05/06/2019 12:00:00 AM [facility] Outpatient Attender: TYSON MEDINA 05/01/2019 04:07:01 P [facility] Outpatient Attender: TYSON ESTRADA MD 04/29/2019 09:12:01 A [facility] Outpatient Attender: TYSON MEDINA 04/29/2019 08:18:00 A [facility] Brief Individual Psychotherapy - 30 min Attender: Jennifer Perales [facility] 04/14/2019 10:00:00 AM EST - 04/14/2019 10:00:00 AM EST [facility] ([facility]) Attender: Jennifer Mendez 04/14/2019 12:00:00 AM EST [facility] ([facility]) Outpatient Attender: TYSON ESTRADA MD 04/11/2019 12:50:01 P [facility] Outpatient Attender: TYSON ESTRADA MD 04/11/2019 11:13:00 A [facility] Outpatient Attender: TYSON ESTRADA MD 04/11/2019 09:17:34 A [facility] Outpatient Attender: TYSON MEDINA 04/09/2019 01:51:00 P [facility] Outpatient Attender: TYSON ESTRADA MD 04/09/2019 01:48:01 P [facility] Outpatient Attender: SHARON Hong/Josef/Adalberto/ Schuyler 04/08/2019 07:45:00 AM EST MEDENT ([facility] Outpatient Attender: TYSON ESTRADA MD FP 04/04/2019 11:29:01 A [facility] Outpatient Attender: TYSON ESTRADA MD FP 03/31/2019 04:25:00 P [facility] Outpatient Attender: SHARON Hong/Josef/Adalberto/ Reindl 03/25/2019 12:30:00 PM EST MEDENT ([facility]) Outpatient Attender: TYSON ESTRADA MD FP 03/25/2019 12:28:01 P [facility] Outpatient Attender: TYSON ESTRADA MD FP 03/24/2019 10:03:02 A [facility] Outpatient Attender: TYSON ESTRADA MD FP 03/19/2019 01:20:01 P [facility] Outpatient Attender: SHARON Hong/Josef/Adalberto/ Reindl 03/13/2019 01:45:00 PM EST MEDENT ([facility]) Outpatient Attender: TYSON ESTRADA MD FP 03/11/2019 03:38:01 P [facility] Outpatient Attender: TYSON ESTRADA MD FP 03/11/2019 12:07:03 P [facility] Outpatient Attender: TYSON ESTRADA MD FP 03/10/2019 10:57:01 P [facility] Outpatient Attender: TYSON ESTRADA MD FP 03/10/2019 01:57:03 P [facility] Outpatient Attender: TYSON ESTRADA MD FP 03/07/2019 11:00:01 A [facility] Outpatient Attender: TYSON ESTRADA MD FP 03/06/2019 04:27:59 P [facility] Outpatient Attender: TYSON ESTRADA MD FP 03/05/2019 03:25:00 P [facility] Outpatient Attender: TYSON ESTRADA MD FP 03/05/2019 12:03:00 P [facility] Outpatient Attender: TYSON ESTRADA MD FP 03/05/2019 10:09:00 A [facility] Outpatient Attender: TYSON ESTRADA MD FP 03/04/2019 03:14:00 P [facility] Outpatient Attender: TYSON MEDINA 03/04/2019 03:13:01 P [facility] Outpatient Attender: TYSON MEDINA 03/04/2019 03:12:00 P [facility] Outpatient Attender: TYSON ESTRADA MD FP 03/04/2019 03:07:01 P [facility] Outpatient Attender: TYSON ESTRADA MD FP 03/04/2019 02:04:02 P [facility] Outpatient Attender: TYSON ESTRADA MD FP 03/04/2019 11:22:01 A [facility] Outpatient Attender: TYSON ESTRADA MD FP 03/04/2019 10:04:00 A [facility] Outpatient Attender: TYSON ESTRADA MD 03/03/2019 04:33:00 P [facility] Outpatient Attender: TYSON ESTRADA MD 02/28/2019 12:34:01 P [facility] Outpatient Attender: TYSON ESTRADA MD 02/24/2019 09:01:04 P [facility] Outpatient Attender: ELSA vargas 02/20/2019 04:30:00 PM EST MED[facility] ([facility] Outpatient Attender: DIPTI GARCIA NP [facility] 02/20/2019 11:00:00 AM EST - 02/20/2019 11:00:00 AM EST [facility] ([facility]) Attender: DIPTI GARCIA NP 02/20/2019 12:00:00 AM [...] AM EST 20 mg by mouth completed [id number] Latuda by mouth [id number] 01/14/2020 04/13/2020 twice a day 30 20 mg tablet [id number] Dipti Garcia [id number] Psychiatric[facility]Mental Health [facility] ([facility]) Paroxetine Hydrochloride 40 MG Oral Tablet PAROXETINE HCL 01/14/2020 12:00:00 AM EST tablet 30 TAKE 1 TABLET BY MOUTH ONCE A DAY TAKE 1 TABLET BY MOUTH ONCE A DAY SOLD: 01/14/2020 [facility] Amoxicillin 875 MG Oral Tablet Amoxicillin 11/11/2019 12:00:00 AM EDT completed MEDENT ([facility]) 875 mg 11/11/2019 12:00:00 AM EDT [...] 07/15/2019 12:00:00 AM EDT ORAL active MEDENT ([facility]) Triamcinolone Acetonide 1 MG/ML Topical Cream Triamcinolone Acetonide 07/15/2019 12:00:00 AM EDT active MEDENT ([facility]) Acyclovir 0.05 MG/MG Topical Ointment Acyclovir 07/15/2019 12:00:00 AM EDT completed MEDENT ([facility]) 1 gram 07/15/2019 12:00:00 AM EDT [...] 07/08/2019 1 2:00:00 AM EDT active MEDENT ([facility]) 100 mg 07/08/2019 12:00:00 [...] 2019 12:00:00 AM EDT 30 mg completed [id number] buspirone 05/28/2019 twice a day 30 mg tablet 33812 [id number] Dipti Martinez [id number] Psychiatric[facility]Mental Health [facility] ([facility]) paroxetine HCl paroxetine HCl 05/28/2019 12:00:00 AM EDT 40 mg by mouth completed [id number] paroxetine HCl by mouth [id number] 05/28/2019 once a day 30 40 mg tablet [id number] Dipti Martinez [id number] Psych[facility]Mental Health [facility] ([facility]) Trazodone Hydrochloride 50 MG Oral Tablet trazodone 2019 12:00:00 AM EDT 50 mg by mouth completed [id number] trazodone by mouth [id number] 05/28/2019 08/26/2019 every night 30 50 mg tablet 41062 [id number] Maria A Garcia [id number] [facility] ([facility]) aripiprazole 10 MG Oral Tablet [Abilify] Abilify 05/28/2019 12 :00:00 AM EDT 10 mg by mouth completed [id number] Abilify by mouth [id number] 05/28/2019 08/26/2019 once a day 30 10 mg tablet 24800 [id number] Jose Rafael Ng [id number] [facility] ([facility]) [...] 02/13/2019 12:00:00 AM EST ORAL completed MEDENT ([facility]) Oxybutynin chloride 5 MG Oral Tablet OXYBUTYNIN [...] fluconazole 100 MG Ora l Tablet ANNIKA ([facility]) aripiprazole 10 MG Oral Tablet aripipraz ole 10 mg tablet TAKE ONE TABLET BY MOUTH EVERY DAY aripiprazole 10 mg tablet TAKE ONE TABLET BY MOUTH EVERY DAY completed aripiprazole 1 0 MG Oral Tablet FORSAN ([facility]) chlorhexidine gluconate 40 MG/ML Medicat ed Liquid Soap [Hibiclens] Hibiclens 4 % topical liquid WASH INTO AFFECTED AREA TWO TIMES A DAY FOR 10 DAYS Hibiclens 4 % topical liquid WASH INTO AFFECTED AREA TWO TIMES A DAY FOR 10 DAYS completed chlorhexidine gl uconate 40 MG/ML Medicated Liquid Soap [Hibiclens] ANNIKA ([facility]) OneTouch Ultra Blue Test Strip TEST FOUR TIMES A DAY [id number] completed OneTouch Ultra Blue Test Strip A THENSita ([facility]) Amoxicillin 875 MG / Clavulanate 125 MG Oral Tablet [Augmentin] Augmentin 875 mg-125 mg tablet Take 1 tablet every 12 hours by oral route. Augmentin 875 mg- 125 mg tablet Take 1 tablet every 12 hours by oral route. 1 completed amoxicillin 875 MG / clavulanate 125 MG Oral Tablet [Augmentin] ANNIKA ([facility]) atorvastatin 10 MG Oral Tablet atorvasta tin 10 mg tablet TAKE 1 TABLET BY MOUTH EVERY DAY AT BEDTIME atorvastatin 10 mg tablet TAKE 1 TABLET BY MOUTH EVERY DAY AT BEDTIME completed atorvastati n 10 MG Oral Tablet ANNIKA ([facility]) Fenofibrate 160 MG Oral Tablet fenofibra te 160 mg tablet TAKE ONE TABLET BY MOUTH DAILY fenofibrate 160 mg tablet TAKE ONE TABLET BY MOUTH DAILY completed fenofibrate 160 MG Oral Tabl et ANNIKA ([facility]) tizanidine 4 MG Oral Tablet tizanidine 4 mg tablet TAKE ONE TABLET BY MOUTH EVERY 8 HOURS NEEDED tizanidine 4 mg tablet TAKE ONE TABLET B Y MOUTH EVERY 8 HOURS NEEDED completed tizani dine 4 MG Oral Tablet ANNIKA ([facility]) terconazole 4 MG/ML Vaginal Cream tercon azole 0.4 % vaginal cream INSERT ONE APPLICATORFUL VAGINALLY AT BEDTIME FOR 7 NIGHTS terconazole 0.4 % vaginal cream INSERT ONE APPLICATORFUL VAGINALLY AT BEDTIME FOR 7 NIGHTS completed terconazole 4 MG/ML Vaginal Crea m ANNIKA ([facility]) buspirone hydrochloride 15 MG Oral Table t buspirone 15 mg tablet TAKE 1 TABLET BY MOUTH TWICE A DAY buspirone 15 mg tablet TAKE 1 TABLET BY MOUTH TWICE A DAY completed buspirone hydr ochloride 15 MG Oral Tablet ANNIKA ([facility]) OneTouch Delica Plus Lancet 33 gauge TEST FOUR TIMES A DAY [id number] completed OneTouch Delica Plus Lancet 33 g auge ANNIKA ([facility]) Cholecalciferol 2000 UNT Oral Tablet cho lecalciferol (vitamin D3) 50 mcg (2,000 unit) tablet TAKE ONE TABLET BY MOUTH DAILY WITH DINNER cholecalciferol (vitamin D3) 50 mcg (2,000 unit) tablet TAKE ONE TABLET BY MOUTH DAILY WITH DINNER completed cholecalciferol 0.05 M G Oral Tablet FORSAN ([facility]) Hydrochlorothiazide 25 MG / Triamterene 37.5 MG Oral Capsule triamterene 37.5 mg-hydrochlorothiazide 25 mg capsule TAKE ONE CAPSULE BY MOUTH DAILY triamterene 37.5 mg-hydrochlorothiazide 25 mg capsule TAKE ONE CAPSULE BY MOUTH DAILY completed hydrochlor othiazide 25 MG / triamterene 37.5 MG Oral Capsule FORSAN ([facility]) Amoxicillin 500 MG Oral Capsule amoxicil jose rafael 500 mg capsule TAKE ONE CAPSULE BY MOUTH THREE TIMES A DAY FOR 7 DAYS amoxicillin 500 mg capsule TAKE ONE CAPS ULE BY MOUTH THREE TIMES A DAY FOR 7 DAYS completed amoxicillin 500 MG Oral Capsule FORSAN ([facility]) Deblitane 0.35 mg tablet TAKE ONE TABLET BY MOUTH EVERY DAY [id number] completed Deblitane 0.35 mg tablet FORSAN ([facility]) Ketorolac Tromethamine 10 MG Oral Tablet ketorolac 10 mg tablet TAKE ONE TABLET BY MOUTH EVERY 6 HOURS FOR 5 DAYS ketorolac 10 mg tablet TAKE ONE TABLET B Y MOUTH EVERY 6 HOURS FOR 5 DAYS complet ed ketorolac tromethamine 10 MG Oral Tablet ANNIKA ([facility]) Amoxicillin 875 MG Oral Tablet amoxicill in 875 mg tablet TAKE ONE TABLET BY MOUTH EVERY 12 HOURS FOR 10 DAYS amoxicillin 875 mg tablet TAKE ONE TABLE T BY MOUTH EVERY 12 HOURS FOR 10 DAYS compl eted amoxicillin 875 MG Oral Tablet ANNIKA ([facility]) Cyclobenzaprine hydrochloride 10 MG Oral Tablet cyclobenzaprine 10 mg tablet TAKE ONE TABLET BY MOUTH THREE TIMES A DAY FOR 7 DAYS cyclobenzaprine 10 mg tablet TAKE ONE TABLET BY MOUTH THREE TIMES A DAY FOR 7 DAYS completed cyclobenzaprine hydrochloride 10 MG Oral Tablet FORSAN ([facility]) OneTouch Ultra2 Meter USE DIRECTED [id number] completed OneTouch Ultra2 Meter FORSAN ([facility]) Cefuroxime 500 MG Oral Tablet cefuroxime axetil 500 mg tablet TAKE 1 TABLET BY MOUTH TWO TIMES A DAY cefuroxime axetil 500 mg tablet TAKE 1 T ABLET BY MOUTH TWO TIMES A DAY completed cefuroxim e 500 MG Oral Tablet ANNIKA ([facility]) Metformin hydrochloride 1000 MG Oral Tab let metformin 1,000 mg tablet TAKE ONE TABLET BY MOUTH TWICE A DAY metformin 1,000 mg tablet TAKE ONE TABLE T BY MOUTH TWICE A DAY completed me tformin hydrochloride 1000 MG Oral Tablet ANNIKA ([facility]) valacyclovir 1000 MG Oral Tablet valacyc lovir 1 gram tablet TAKE ONE TABLET BY MOUTH TWO TIMES A DAY FOR 3 DAYS valacyclovir 1 gram tablet TAKE ONE TABL ET BY MOUTH TWO TIMES A DAY FOR 3 DAYS compl eted valacyclovir 1000 MG Oral Tablet FORSAN ([facility]) 0.5 ML dulaglutide 1.5 MG/ML Auto-Inject or [Trulicity] Trulicity 0.75 mg/0.5 mL subcutaneous pen injector INJECT 0.75MG UNDER THE SKIN ONCE A WEEK Trulicity 0.75 mg/0.5 mL subcutaneous pen injector INJECT 0.75MG UNDER THE SKIN ONCE A WEEK completed 0.5 ML dulaglutide 1.5 MG/ML Auto-Injector [Trulicity] FORSAN ([facility]) Prednisone 10 MG Oral Tablet prednisone 10 mg tablet TAKE 2 TABLETS BY MOUTH ONCE A DAY prednisone 10 mg tablet TAKE 2 TABLETS BY MOUTH ONCE A DAY completed prednisone 10 MG Oral Tablet FORSAN ([facility]) Cyclopentolate hydrochloride 10 MG/ML Op hthalmic Solution cyclopentolate 1 % eye drops INSTILL 1 DROP INTO LEFT EYE TWO TIMES A DAY DIRECTED cyclopentolate 1 % eye drops INSTILL 1 DROP INTO LEFT EYE TWO TIMES A DAY DIRECTED completed cyclopentolate hydrochloride 10 MG/ML Ophthalmic Solution FORSAN ([facility]) prednisolone acetate 10 MG/ML Ophthalmic Suspension prednisolone acetate 1 % eye drops,suspension INSTILL 1 DROP INTO THE LEFT EYE DIRECTED EVERY HOUR prednisolone acetate 1 % eye drops,suspension INSTILL 1 DROP INTO THE LEFT EYE DIRECTED EVERY HOUR completed prednisolone acetate 10 MG/ML Ophthalmic Suspension FORSAN ([facility]) Acetaminophen 325 MG / Hydrocodone Reema trate [...] hydrocodone bitartrate 5 MG Oral Tablet ANNIKA ([facility]) Fluconazole 150 MG Oral Tablet fluconazo le 150 mg tablet TAKE 1 TABLET BY MOUTH FOR 1 DOSE THEN 1 TABLET IN 3 DAYS fluconazole 150 mg tablet TAKE 1 TABLET BY MOUTH FOR 1 DOSE THEN 1 TABLET IN 3 DAYS completed fluconazole 150 MG Oral Tablet ANNIKA ([facility]) Triamcinolone Acetonide 1 MG/ML Topical Cream triamcinolone acetonide 0.1 % topical cream APPLY TO HANDS TWO TIMES A DAY FOR 14 DAYS AVOID CREAM TO FACE triamcinolone acetonide 0.1 % topical cream APPLY TO HANDS TWO TIMES A DAY FOR 14 DAYS AVOID CREAM TO FACE completed triamcinolone acetonide 1 MG/ML Topical Cream ANNIKA ([facility]) Atenolol 100 MG Oral Tablet atenolol 100 mg tablet TAKE ONE TABLET BY MOUTH DAILY atenolol 100 mg tablet TAKE ONE TABLET BY MOUTH DAILY completed atenolol 100 MG Oral Tablet ATHRanulfo TUCKER ([facility]) Cephalexin 500 MG Oral Capsule cephalexi n 500 mg capsule TAKE ONE CAPSULE BY MOUTH TWICE A DAY DIRECTED FOR 10 DAYS cephalexin 500 mg capsule TAKE ONE CAPSULE BY MOUTH TWICE A DAY DIRECTED FOR 10 DAYS completed cephalexin 500 MG Oral Capsule ANNIKA ([facility]) Insurance Providers Payer name Policy type / Coverage type Policy ID Covered alliance party ID Covered alliance party's relationship to goldberg Policy Goldberg Plan Information [facility] [id number] SP [id number] Medicaid S [id number] MEDICAID [id number] S [id number] Managed Care - [employer] P [id number] S [id number] Medicaid S [id number] S [id number] Managed Care - [employer] P [id number] S [id number] [facility] Community Plan Commercial Self Managed Care - [employer] P [id number] S [id number] [facility] Comm Plan Medicaid F SELF [facility] MEDICAID [id number] Cynthia [id number] 22 Medicaid S [id number] S [id number] Managed Care - [employer] P [id number] S [id number] [facility] I Self [id number] [employer] COMMUNITY PLAN MCDHMO [id number] SP [id number] Medicaid S [id number] S [id number] Managed Care - [facility] P [id number] S [id number] [facility] O [id number] S [id number] MEDICAID [id number] SP [id number] ANSI-Medicaid [id number] ANSI-Medicaid [id number] ANSI-Medicaid [id number] ANSI-Medicaid [id number] ANSI-Medicaid [id number] ANSI-Medicaid [id number] Medicaid S [id number] S [id number] Managed Care - [facility] P [id number] S [id number] [facility] Health Maintenance Organization (HMO) [id number] Self [id number] [facility] Health Maintenance Organization (HMO) [id number] Self [id number] [facility] Health Maintenance Organization (HMO) [id number] Self [id number] [facility] Health Maintenance Organization (HMO) [id number] Self [id number] [facility] Health Maintenance Organization (HMO) [id number] Self [id number] Managed Care - [facility] P [id number] S [id number] MEDICAID M [id number] Self [id number] [facility] I [id number] Self [id number] Medicaid S [id number] S [id number] [facility] COMMUNITY PLAN MCDO [id number] SP [id number] Managed Care - [facility] Community Plan P [id number] S [id number] SELF PAY ONLY [id number] SP [id number] Medicaid S [id number] S [id number] Managed Care [facility] Community Plan P [id number] S [id number] Problems, Conditions, and Diagnoses Code Display Name Description Problem Type Effective Dates Data Source(s) F41.9 Anxiety disorder, unspecified Unspecified Anxiety Diso rder Condition 04/07/2020 12:00:00 AM EST [facility] ([facility]) F31.9 Bipolar disorder, unspecified Bipolar I Disorder, Current or most recent episode unspecified Condition 04/07/2020 12:00:00 AM EST [facility] ([facility]) [id number] Nausea Nausea Problem 03/11/2020 12:00:00 AM ES Rani ROBLERO ([facility]) [id number] Type 2 diabetes mellitus Type 2 Diabetes Mellitus Prob carrie 03/11/2020 12:00:00 AM EST ANNIKA ([facility]) [id number] Abnormal cytology findings Abnormal Cytology Findings Problem 12/11/2019 05:29:00 PM EDT ANNIKA ([facility]) [id number] Asthma Asthma Problem 12/11/2019 05:29:00 PM ED T ANNIKA ([facility]) [id number] Hypertensive disorder Hypertensive Disorder Problem 12/11/2019 05:29:00 PM EDT ANNIKA ([facility]) [id number] Depressive disorder Depressive Disorder Problem 1 05:29:00 PM EDT ANNIKA ([facility]) 26048714 Hypothyroidism Hypothyroidism Problem 12/11/2019 05:29: 00 PM EDT FORSAN ([facility]) 788.30 Urinary incontinence Urinary incontinence 07/03 02:29:56 PM EDT [facility] [id number] Clinical history and observation finding s Clinical History and Observation Findings Problem 07/04/2019 12:00:00 AM EDT ANNIKA ([facility]) L02.214 Cutaneous abscess of groin Cutaneous abscess of groin 03/04/2019 02:03:37 PM EST [facility] 250.80 Type 2 diabetes mellitus with hyperglyce bryan Type 2 diabetes mellitus with hyperglycemia 03/04/2019 02:03:37 PM [facility] [id number] Evaluation finding Evaluation Finding Problem 08/2019 12:00:00 AM EMMY ROBLERO ([facility]) [id number] Abscess of groin Abscess of Groin Problem 03/04/2019 12 :00:00 AM EST NANIKA ([facility]) Surgeries/Procedures Procedure Description Date Indications Data Source(s) MHC Telemed E/M Lvl 3--Est pt 04/07/2020 12:00:00 AM EST - 04/07/2020 12:00:00 AM EST [facility] ([facility]) MHC Telemed E/M Lvl 3--Est pt 04/07/2020 12:00:[address] [facility] ([facility]) MHC Telemed E/M Lvl 3--Est pt 03/10/2020 12:00:[address] [facility] ([facility]) MHC Telemed E/M Lvl 3--Est pt 03/10/2020 12:00:00 AM EST - 03/10/2020 12:00:00 AM EST [facility] ([facility]) MHC Telemed E/M Lvl 3--Est pt 07/30/2019 12:00:00 AM E DT [facility] ([facility]) MHC Telemed E/M Lvl 3--Est pt 07/30/2019 12:00:00 AM EDT - 07/30/2019 12:00:00 AM EDT [facility] ([facility]) [id number]"Psychotherapy 06/20/2019 12:00:00 AM EDT [facility] ([facility]) [id number]"Psychotherapy 0 12:00:00 AM EDT - 06/20/2019 12:00:00 AM EDT [facility] ([facility]) MHC Telemed E/M Lvl 3--Est pt 05/28/2019 12:00:00 AM E DT [facility] ([facility]) [facility] Telemed E/M Lvl 3--Est pt 05/28/2019 12:00:00 AM EDT - 05/28/2019 12:00:00 AM EDT [facility] ([facility]) MHC Telemed E/M Lvl 3--Est pt 05/22/2019 12:00:00 AM E DT [facility] ([facility]) [facility] Telemed E/M Lvl 3--Est pt 05/22/2019 12:00:00 AM EDT - 05/22/2019 12:00:00 AM EDT [facility] ([facility]) Brief Individual Psychotherapy - 30 min 04/14/2019 12: 00:00 AM EST [facility] ([facility]) Brief Individual Psychotherapy - 30 min 04/14/2019 12:00:00 AM EST - 04/14/2019 12:00:00 AM EST [facility] ([facility]) I & D Abscess Simple 03/25/2019 12:00:00 AM EST MEDENT ([facility], ) OFFICE OUTPATIENT VISIT 15 MINUTES 02/20/2019 12:00:00 AM EST [facility] ([facility]) OFFICE OUTPATIENT VISIT 15 MINUTES 02/20 12:00:00 AM EST - 02/20/2019 12:00:00 AM EST [facility] ([facility]) Results ID Date Data Source [id number] 03/29/2020 11:47:00 PM EST [facility] Name Value Range Interpretation Code Description Data Kate rce(s) Supporting Document(s) SARS-CoV-2 (COVID 19) NEGATIVE - SARS-CoV-2 (COVID19) [facility] This lab was ordered by [facility] a nd reported by [facility]. ID Date Data Source [id number] 03/29/2020 07:36:00 PM EST [facility] Name Value Range Interpretation Code Description Data Kate rce(s) Supporting Document(s) SARS COVID ANTIGEN NEGATIVE [facility] This lab was ordered by [facility] a nd reported by [facility]. ID Date Data Source [id number] 02/27/2020 04:59:00 AM EST [facility] Name Value Range Interpretation Code Description Data Kate rce(s) Supporting Document(s) SARS coronavirus 2 RNA [Presence] in Res piratory specimen by SARA with probe detection [facility] This lab was ordered by [facility] a nd reported by [facility]. ID Date Data Source [id number] 07/04/2019 02:07:28 PM EDT [facility] Measurements & CalculationsHeight: 64.50 inches 163.83 [...] during this visit, including review of any uovj-xiy-wvvvbch medications, herbal therapies, and/or supplements.Allergy ReviewAllergy List [...] incontinence (ICD-788.30) (ICD10- R32)Assessment not SavedUrinary incontinence (NQZ89-Q38): refer to urologyMedications:CEFUROXIME AXETIL 500 MG ORAL [...] ElectronicAllergies:No Known Allergies (updated 04/29/2019) Orders:Surgical Consult [CPT-42863] Adult - Ofc Vst, EST, Level III [CPT-71805] Urology Consult [CPT-87036] Medications:CEFUROXIME AXETIL 500 MG ORAL TABLET (CEFUROXIME AXETIL) one tab po BID #30[Tablet] x 0 Route:ORAL Entered and Authorized by: Venkatesh Valentine DO Method used: Electronically to [facility]* (dakhuf) [address] [place] [address] Note to Pharmacy: Route: ORAL; RxID: [id number] signed by Venkatesh Valentine DO on 07/04/2019 [...] rce(s) Supporting Document(s) ID Date Data Source [id number] 04/29/2019 10:10:00 AM [facility] Name Value Range Interpretation Code Description Data Kate rce(s) Supporting Document(s) HGBA1C 9.1 % N [facility] ID Date Data Source [id number] 04/29/2019 09:35:22 AM [facility] Measurements & CalculationsHeight: 64.50 inches 163.83 [...] during this visit, including review of any xgnt-ase-zgbltag medications, herbal therapies, and/or supplements.Allergy ReviewAllergy List [...] Problems:Assessed:Type 2 diabetes mellitus with hyperglycemia (ICD-250.80) (SKB61-P91.65) Assessment: Instructions: Recommend low carbohydrate diet: reduce [...] call with any concerns.Cutaneous abscess of groin (OFD56-B56.214) Assessment: Instructions: Resolved, signed for records today from your surgeon.HYPERTENSION (ICD-401.9) (ADU83-J32) Assessment: Instructions: Appears at goal today. Recommend reduced salt intake, cut back on caffeine and alcohol, increase physical activity. We reviewed the buttermaker risks associated with uncontrolled high blood pressure, [...] alcohol, increase physical activity. We reviewed the buttermaker risks associated with uncontrolled high blood pressure, [...] ORAL TABLETAllergies:No Known Allergies (updated 04/29/2019) Orders:HgBA1c [CPT-21447] 24024 - Venipuncture [CPT-95704] Adult - Ofc Vst, EST, Level III [CPT-89409] Follow-Up Return to clinic: in 90 days for follow upAdditional Follow-Up: T2DM, HTNClinical Visit Summary Completed]Labs In-House Blood TestsDate/Time Collected: April 29, 2019 10:13 AMTest Result Reference Range Normal ValueComments: labs done in office, taken from right ac, tolerated well.Josefina Díaz, April 29, 2019 10:13 AM Name Value Range Interpretation Code Description Data Kate rce(s) Supporting Document(s) ID Date Data Source [id number] 03/04/2019 01:02:54 PM EST [facility] Measurements & CalculationsHeight: 64.50 inches 163.83 [...] at this appointment. Pt was admitted to [facility] on 02/21/19 for abscesses of the groin. During admission, patient was brought to the OR on 02/21/19 for an I&D by Dr. Harrington. Discharged 02/26/2019. Discharge summary reviewed, recommendation was for 10 days total of Augmentin, intended to be started on 02/26/2019, and dressing changes every 2 days. Pt reports she is unable to perform dressing changes independently. Had [facility] home health perform dressing changes on [...] during this visit, including review of any yfat-vdj-iwlogjl medications, herbal therapies, and/or supplements.Allergy ReviewAllergy List [...] area of induration involving the right groin; medical record transcriber for exam Natalee ZuñigaOrientation: oriented to time, place, and personMood & Affect: no depression, anxiety, or agitationJudgment & Insight: intactCare Management Plan Transitions of CareInboundRate Your HealthIn general, would you say your health is? FairAssessment & Plan Problems:Added: Cutaneous abscess of groin (SUG88-N02.214) Assessment: Instructions: Wound care and dressing changes provided in the office today. Referral generated for general surgical outpatient followup as well as home care for dressing changes. ER precautions for worsening symptoms. Appointment given here for 03/06/2019 for dressing change if home care is unable to have a visit by 03/06/2019.Type 2 diabetes mellitus with hyperglycemia (ICD-250.80) (NPX11-T35.65) Assessment: Instructions: Reiterated the importance of diabetic control with wound healing.Cutaneous abscess of groin (GII46-I59.214) Assessment: Time spent 15 minutes, in addition [...] TABLETAllergies:No Known Allergies (updated 03/04/2019) Orders:Surgical Consult [CPT-78825] Other Referral [[id number]] Adult - Ofc Vst, EST, Level IV [CPT-30201] Follow-Up Return to clinic: in 2-3 days [...] leted Unknown if ever smoked [facility] ([facility]) Smoking 03/10/2020 12:00:00 AM EST Unknown if ever smoked comp leted Unknown if ever smoked [facility] ([facility]) Smoking 07/30/2019 12:00:00 AM EDT Unknown if ever smoked comp leted Unknown if ever smoked [facility] ([facility]) Smoking 06/20/2019 12:00:00 AM EDT Unknown if ever smoked comp leted Unknown if ever smoked [facility] ([facility]) Smoking 05/28/2019 12:00:00 AM EDT Unknown if ever smoked comp leted Unknown if ever smoked [facility] ([facility]) Smoking 05/22/2019 12:00:00 AM EDT Unknown if ever smoked comp leted Unknown if ever smoked [facility] ([facility]) Smoking 04/14/2019 12:00:00 AM EST Unknown if ever smoked comp leted Unknown if ever smoked [facility] ([facility]) Smoking 02/20/2019 12:00:00 AM EST Unknown if ever smoked comp leted Unknown if ever smoked [facility] ([facility]) Vital Signs ID Date Data Source UNK Name Value Range Interpretation Code Description Data Source(s) Body weight 2932 [oz_av] 2932 [oz_av] ANNIKA ([facility]) Systolic blood pressure 123 mm[Hg] 123 mm[Hg] A THENA ([facility]) Body mass index (BMI) [Ratio] 31 kg/m2 31 kg/ m2 ANNIKA ([facility]) Body height 64.5 [in_i] 64.5 [in_i] ANNIKA ([facility]) Diastolic blood pressure 91 mm[Hg] 91 mm[Hg] ANNIKA ([facility]) Body height 0.00 in Normal (applies to non-numeric resu lts) 0.00 in [facility] ([facility]) Body weight Measured 212.00 lbs Normal (applies to n on-numeric results) 212.00 lbs [facility] ([facility]) Body mass index (BMI) [Ratio] 0.00 kg/m2 No rmal (applies to non-numeric results) 0.00 kg/m2 [facility] ([facility]) Systolic blood pressure 0 mm[Hg] Normal (applies t o non-numeric results) 0 mm[Hg] [facility] ([facility]) Diastolic blood pressure 0 mm[Hg] Normal (applies to non-numeric results) 0 mm[Hg] [facility] ([facility]) Systolic blood pressure 136 mm[Hg] 136 mm[Hg] M EDENT ([facility]) Diastolic blood pressure 94 mm[Hg] 94 mm[Hg] [facility] ([facility], [facility]) Heart rate 101 /min 101 /min [facility] ([facility], [facility]) Respiratory rate 12 /min 12 /min [facility] ( [facility], [facility]) Oxygen saturation in Arterial blood by Pulse oximetry 98 % 98 % [facility] ([facility], [facility]) Body weight 202.00 [lb_av] 202.00 [lb_av] MEDEN T ([facility], [facility]) Body height 65 [in_i] 65 [in_i] [facility] ([facility], [facility]) 5'5" Body mass index (BMI) [Ratio] 33.6 kg/m2 33.6 k g/m2 [facility] ([facility], [facility]) Systolic blood pressure 137 mm[Hg] 137 mm[Hg] [facility], [facility]) Diastolic blood pressure 92 mm[Hg] 92 mm[Hg] [facility] ([facility], [facility]) Heart rate 80 /min 80 /min [facility] ([facility], [facility]) Oxygen saturation in Arterial blood by Pulse oximetry 98 % 98 % [facility] ([facility], [facility]) Body temperature 97.9 [degF] 97.9 [degF] [facility] ([facility], [facility]) Body weight 202.00 [lb_av] 202.00 [lb_av] MEDEN T ([facility], [facility]) Body height 65 [in_i] 65 [in_i] [facility] ([facility], [facility]) 5'5" Body mass index (BMI) [Ratio] 33.6 kg/m2 33.6 k g/m2 [facility] ([facility], [facility]) Body height 0.00 in Normal (applies to non-numeric resu lts) 0.00 in [facility] ([facility]) Body weight Measured 0.00 lbs Normal (applies to n on-numeric results) 0.00 lbs [facility] ([facility]) Body mass index (BMI) [Ratio] 0.00 kg/m2 No rmal (applies to non-numeric results) 0.00 kg/m2 [facility] ([facility]) Systolic blood pressure 0 mm[Hg] Normal (applies t o non-numeric results) 0 mm[Hg] [facility] ([facility]) Diastolic blood pressure 0 mm[Hg] Normal (applies to non-numeric results) 0 mm[Hg] [facility] ([facility]) Systolic blood pressure 118 mm[Hg] 118 mm[Hg] [facility], [facility]) Diastolic blood pressure 86 mm[Hg] 86 mm[Hg] [facility] ([facility], [facility]) Heart rate 69 /min 69 /min [facility] ([facility], [facility]) Respiratory rate 17 /min 17 /min [facility] ( [facility], [facility]) Oxygen saturation in Arterial blood by Pulse oximetry 96 % 96 % [facility] ([facility], [facility]) Body temperature 98.7 [degF] 98.7 [degF] [facility] ([facility], [facility]) Body weight 213.00 [lb_av] 213.00 [lb_av] MEDEN T ([facility], [facility]) Body height 65 [in_i] 65 [in_i] [facility] 5'5" Body mass index (BMI) [Ratio] 35.4 kg/m2 35.4 k g/m2 [facility] ([facility]) Systolic blood pressure 117 mm[Hg] 117 mm[Hg] M EDENT ([facility], ) Diastolic blood pressure 79 mm[Hg] 79 mm[Hg] [facility]) Body height 65 [in_i] 65 [in_i] [facility] ([facility]) 5'5" Body weight 215.25 [lb_av] 215.25 [lb_av] MEDEN T ([facility]) Body mass index (BMI) [Ratio] 35.8 kg/m2 35.8 k g/m2 [facility]) Body weight 97.637 kg 97.637 kg [facility] ([facility]) Body weight 3570.08 [oz_av] 3570.08 [oz_av] ATH ALBER ([facility]) Systolic blood pressure 107 mm[Hg] 107 mm[Hg] A THENA ([facility]) Body height 64.5 [in_i] 64.5 [in_i] ANNIKA ([facility]) Diastolic blood pressure 77 mm[Hg] 77 mm[Hg] ANNIKA ([facility]) Body mass index (BMI) [Ratio] 0.00 kg/m2 No rmal (applies to non-numeric results) 0.00 kg/m2 [facility] ([facility]) Systolic blood pressure 0 mm[Hg] Normal (applies t o non-numeric results) 0 mm[Hg] [facility] ([facility]) Diastolic blood pressure 0 mm[Hg] Normal (applies to non-numeric results) 0 mm[Hg] [facility] ([facility]) Body height 0.00 in Normal (applies to non-numeric resu lts) 0.00 in [facility] ([facility]) Body weight Measured 0.00 lbs Normal (applies to n on-numeric results) 0.00 lbs [facility] ([facility]) Body weight 3440 [oz_av] 3440 [oz_av] ANNIKA ([facility]) Systolic blood pressure 124 mm[Hg] 124 mm[Hg] A THENA ([facility]) Body height 64.5 [in_i] 64.5 [in_i] ANNIKA ([facility]) Diastolic blood pressure 83 mm[Hg] 83 mm[Hg] ANNIKA ([facility]) Systolic blood pressure 144 mm[Hg] 144 mm[Hg] [facility], ) Diastolic blood pressure 92 mm[Hg] 92 mm[Hg] [facility], ) Heart rate 71 /min 71 /min [facility] ([facility], ) Body height 65 [in_i] 65 [in_i] [facility], ) 5'5" Body weight 216.00 [lb_av] 216.00 [lb_av] MEDEN T ([facility], ) Body mass index (BMI) [Ratio] 35.9 kg/m2 35.9 k g/m2 [facility] ([facility], ) Body weight 97.978 kg 97.978 kg [facility] ([facility], ) Systolic blood pressure 159 mm[Hg] 159 mm[Hg] M EDENT ([facility], ) Diastolic blood pressure 103 mm[Hg] 103 mm[Hg] [facility] ([facility], ) Body height 65 [in_i] 65 [in_i] [facility] ([facility]) 5'5" Body weight 218.00 [lb_av] 218.00 [lb_av] MEDEN T ([facility]) Body mass index (BMI) [Ratio] 36.3 kg/m2 36.3 k g/m2 [facility] ([facility]) Body weight 98.885 kg 98.885 kg [facility] ([facility]) Body weight 3408 [oz_av] 3408 [oz_av] ANNIKA ([facility]) Systolic blood pressure 124 mm[Hg] 124 mm[Hg] A THENA ([facility]) Body height 64.5 [in_i] 64.5 [in_i] ANNIKA ([facility]) Diastolic blood pressure 86 mm[Hg] 86 mm[Hg] ANNIKA ([facility]) Systolic blood pressure 126 mm[Hg] 126 mm[Hg] M EDENT ([facility], [facility]) Diastolic blood pressure 84 mm[Hg] 84 mm[Hg] [facility] ([facility], [facility]) Heart rate 103 /min 103 /min [facility] ([facility], [facility]) Oxygen saturation in Arterial blood by Pulse oximetry 97 % 97 % [facility] ([facility], [facility]) Body temperature 97.6 [degF] 97.6 [degF] [facility] ([facility], [facility]) Body weight 214.00 [lb_av] 214.00 [lb_av] MEDEN T ([facility], [facility]) Body height 65 [in_i] 65 [in_i] [facility] ([facility]) 5'5" Body mass index (BMI) [Ratio] 35.6 kg/m2 35.6 k g/m2 [facility] ([facility]) Patient Treatment Plan of Care Planned Activity Planned Date Details Description Data Source (s) valacyclovir 1000 MG Oral Tablet ANNIKA ([facility]) 0.5 ML dulaglutide 1.5 MG/ML Auto-Injector [Trulicity] ANNIKA ([facility]) Hydrochlorothiazide 25 MG / Triamterene 37.5 MG Oral Capsule ANNIKA ([facility]) Triamcinolone Acetonide 1 MG/ML Topical Cream ANNIKA ([facility]) tizanidine 4 MG Oral Tablet ANNIKA ([facility]) terconazole 4 MG/ML Vaginal Cream ANNIKA ([facility]) Prednisone 10 MG Oral Tablet ANNIKA ([facility]) prednisolone acetate 10 MG/ML Ophthalmic Suspension ANNIKA ([facility]) OneTouch Ultra2 Meter USE DIRECTED ANNIKA ([facility]) OneTouch Ultra Blue Test Strip TEST FOUR TIMES A DAY ANNIKA ([facility]) OneTouch Delica Plus Lancet 33 gauge TEST FOUR TIMES A DAY ANNIKA ([facility]) Metformin hydrochloride 1000 MG Oral Tablet ANNIKA ([facility]) Ketorolac Tromethamine 10 MG Oral Tablet ANNIKA ([facility]) Acetaminophen 325 MG / Hydrocodone Bitartrate 5 MG Oral Tablet ANNIKA ([facility]) chlorhexidine gluconate 40 MG/ML Medicated Liquid Soap [Hibiclens] ANNIKA ([facility]) Fluconazole 150 MG Oral Tablet ANNIKA ([facility]) Fluconazole 100 MG Oral Tablet ANNIKA ([facility]) Fenofibrate 160 MG Oral Tablet ANNIKA ([facility]) Deblitane 0.35 mg tablet TAKE ONE TABLET BY MOUTH EVERY DAY ANNIKA ([facility]) Cyclopentolate hydrochloride 10 MG/ML Ophthalmic Solution ANNIKA ([facility]) Cyclobenzaprine hydrochloride 10 MG Oral Tablet ANNIKA ([facility]) Cholecalciferol 2000 UNT Oral Tablet ANNIKA ([facility]) Cephalexin 500 MG Oral Capsule ANNIKA ([facility]) Cefuroxime 500 MG Oral Tablet ANNIKA ([facility]) buspirone hydrochloride 15 MG Oral Tablet ANNIKA ([facility]) Amoxicillin 875 MG / Clavulanate 125 MG Oral Tablet [Augmentin] ANNIKA ([facility]) atorvastatin 10 MG Oral Tablet ANNIKA ([facility]) Atenolol 100 MG Oral Tablet ANNIKA ([facility]) aripiprazole 10 MG Oral Tablet ANNIKA ([facility]) Amoxicillin 875 MG Oral Tablet ANNIKA ([facility]) Amoxicillin 500 MG Oral Capsule FORSAN ([facility])
[2020-04-16] MEDS ORDERED: DEXTROSE 50% 50 ML SYRINGE IV PRN (15:45)
[2020-04-16] MEDS ORDERED: traZODone 50 MG TAB PO PRN (15:45)
[2020-04-16] MEDS ORDERED: GLUCAGON INJ 1MG VIAL SC PRN (15:45)
[2020-04-16] MEDS ORDERED: GLUCOSE 4GM CHEW TABLET PO PRN (15:45)
[2020-04-16] MEDS ORDERED: MAG SULF 1GM/100ML (MAG RUN) 1 GM in IV 1 EA IV ONE (16:00)
[2020-04-16 16:24] VITALS: BP 151/104
[2020-04-16] MEDS ORDERED: METOCLOPRAMIDE 5 MG TAB PO PRN (16:45)
--- NOTE | 2020-04-16 16:45 | HPEPDOC ---
General Date of Admission Apr 16, 2020 at 15:29 Date of Service: Apr 16, 2020 Chief Complaint The patient is a 49-year-old female admitted with a reason for visit of Syncope. Source: Patient Exam Limitations: No limitations Timing/Duration: Week(s) Severity: Moderate Associated Symptoms: Nausea, Vomiting History of Present Illness Pt is a 49 year old female with a past medical history significant for hypertension, bipolar disorder, diabetes mellitus type 2, who presented to the [facility] emergency department with n/v. Pt stated that she has been having nausea and vomiting for past 2 weeks, patient had lost of appetite and states that she was dehydrated. In ER pt was found to have K 2.7, EKG shows sinus rhythm with QTc prolongation. Home Medications Scheduled Amlodipine Besylate (Amlodipine Besylate) 10 Mg Tablet, 10 MG PO DAILY, (Reported) Buspirone HCl (Buspirone HCl) 30 Mg Tablet, 30 MG PO BID, (Reported) Dulaglutide (Trulicity) 1.5 Mg/0.5 Ml Pen.injctr, 1.5 MG SC QWEEK, (Reported) SUNDAY MIDDAY Insulin Glargine,Hum.rec.anlog (Basaglar Kwikpen U-100) 100 Unit/1 Ml Insuln.pen, 25 UNIT SC QHS, (Reported) Levothyroxine Sodium (Synthroid) 150 Mcg Tablet, 150 MCG PO DAILY, (Reported) Lisinopril (Lisinopril) 20 Mg Tablet, 20 MG PO QHS, (Reported) Paroxetine HCl (Paroxetine) 40 Mg Tablet, 40 MG PO DAILY, (Reported) Spironolactone (Spironolactone) 25 Mg Tablet, 25 MG PO DAILY, (Reported) Scheduled PRN Trazodone HCl (Trazodone HCl) 50 Mg Tablet, 50 MG PO QHS PRN for INSOMNIA, (Reported) 1-2 TABLETS PRN Allergies Coded Allergies: No Known Allergies (Unverified , 02/20/19) Past Medical History Medical History 1. Diabetes Mellitus type 2 2. Diabetic Neuropathy 3. Depression/Anxiety 4. Bipolar Disorder 5. Obstructive Sleep Apnea 6. Hypertension 7. Hyperlipidemia 8. GERD 9. Obesity Surgical History 1. Cholecystectomy 2. Vaginal Delivery x 3 3. Left Arm Surgery 4. Left Humerus with plate and screws Family History Father with diabetes mellitus type 2. Mother with diabetes mellitus type 2 and chronic obstructive pulmonary disease. Brother with Down's syndrome. Sister with history of blood clots Social History * Smoker: former Smoker Alcohol: Denies Drugs: denies A-FIB/CHADSVASC A-FIB History Current/History of A-Fib/PAF?: No Current PO Anticoag Therapy: No Review of Systems Constitutional: Denies: Chills Eyes: Denies: Pain ENT: Reports: Head Aches Skin: Reports: Rash, Lesions Pulmonary: Denies: Dyspnea, Cough Cardiovascular: Denies: Chest Pain Gastrointestinal: Reports: Nausea, Vomiting Genitourinary: Denies: Dysuria Hematologic: Denies: Bruising Endocrine: Denies: Polydipsia, Polyphagia Musculoskeletal: Denies: Neck Pain Neurological: Denies: Weakness Psych: Reports: Mood Normal Physical Examination General Exam: Positive: Alert Eye Exam: Positive: PERRLA ENT Exam: Positive: Atraumatic Neck Exam: Positive: Supple; Negative: JVD Chest Exam: Positive: Clear to auscultation Heart Exam: Positive: Rate Normal Telemetry: Positive: No significant arrhythmia Abdomen Exam: Positive: Normal bowel sounds Extremity Exam: Negative: Clubbing Skin Exam: Positive: Nl turgor and temperature Neuro Exam: Positive: Normal Gait, Strength at 5/5 X4 ext Psych Exam: Positive: Mental status NL Vital Signs Vital Signs Date Time Temp Pulse Resp B/P (MAP) Pulse Ox O2 Delivery O2 Flow Rate FiO2 04/16/20 12:30 88 18 136/81 (99) 94 Room Air 04/16/20 10:52 98.0 Laboratory Data Labs 24H Laboratory Tests 2 04/16/20 11:11: Immature Granulocyte % (Auto) 0.3, Neutrophils (%) (Auto) 66.8H, Lymphocytes (%) (Auto) 24.2, Monocytes (%) (Auto) 5.9, Eosinophils (%) (Auto) 2.3, Basophils (%) (Auto) 0.5, Neutrophils # (Auto) 6.5, Lymphocytes # (Auto) 2.4, Monocytes # (Auto) 0.6, Eosinophils # (Auto) 0.2, Basophils # (Auto) 0.1, Nucleated Red Blood Cells % (auto) 0.0, Total Bilirubin 0.8, Direct Bilirubin 0.1, Aspartate Amino Transf (AST/SGOT) 28, Alanine Aminotransferase (ALT/SGPT) 20, Alkaline Phosphatase 108, Total Creatine Kinase 73, Creatine Kinase MB < 1.0, Creatine Kinase MB Relative Index 1.37, Troponin I < 0.02, Total Protein 7.1, Albumin 3.0L, Albumin/Globulin Ratio 0.7L, Lipase 61L, Human Chorionic Gonadotropin, Qual NEGATIVE 04/16/20 11:23: POC Glucose (Misc Panel) 147H, POC Sodium (Misc Panel) 139, POC Potassium (Misc Panel) 2.7*L, POC Chloride (Misc Panel) 94L, POC Total CO2 (Misc Panel) 39.0H, POC Blood Urea Nitrogen (Misc Panel 13, POC Ionized Calcium (Misc Panel) 4.8, POC Creatinine (Misc Panel) 1.0, POC Hematocrit (Misc Panel) 46.0 CBC/BMP Laboratory Tests 04/16/20 11:11 Microbiology Microbiology 04/16/20 Respiratory Virus Panel (PCR) ([facility]) - Final, Complete Assessment/Plan Pt is a 49 year old female with a past medical history significant for hypertension, bipolar disorder, diabetes mellitus type 2, who presented to the [facility] emergency department with n/v. Pt stated that she has been having nausea and vomiting for past 2 weeks, patient had lost of appetite and states that she was dehydrated. In ER pt was found to have K 2.7, EKG shows sinus rhythm with QTc prolongation. Problems (1) Nausea & vomiting Status: Acute Problem Text: Differential diagnosis includes gastritis, PUD, gastroparesis PPI trial Metoclopramide Telemetry, monitor EKG for QTc prolongation Will check H. pylori (2) Hypokalemia Status: Acute Problem Text: Secondary to vomiting Replaced Continue to monitor BMP (3) Syncope Status: Acute Problem Text: Most likely secondary to dehydration IV fluid (4) Diabetes Status: Chronic Problem Text: Diabetes diet Detemir twice a day Insulin sliding scale (5) Bipolar depression Status: Chronic Problem Text: Continue home meds Plan / VTE VTE Prophylaxis Ordered?: Yes GAGE FISHER DO Apr 16, 2020 16:45
[2020-04-16] MEDS: HumaLOG INSULIN (NovoLOG) PER UNIT SC SCH (17:30)
[2020-04-16] MEDS: ENOXAPARIN 40MG/0.4ML SYRINGE (J1650 PER 10MG) SC SCH (17:34)
[2020-04-16] MEDS: KCL 20MEQ in NS 1000ML 1,000 ML IV SCH (17:35)
[2020-04-16] MEDS: ACETAMINOPHEN TAB 650MG DOSE (2X325MG) PO PRN (17:35)
[2020-04-16 19:22] LABS: BLOOD UREA NITROGEN 12 MG/DL (7-18); CALCIUM LEVEL 10.5 MG/DL (8.5-10.1); CARBON DIOXIDE LEVEL 39 MEQ/L (21-32); CHLORIDE LEVEL 100 MEQ/L (98-107); CREATININE FOR GFR 1.02 MG/DL (0.55-1.30); GLOMERULAR FILTRATION RATE > 60.0 (>58); GLUCOSE, FASTING 111 MG/DL (70-100); SODIUM LEVEL 143 MEQ/L (136-145)
[2020-04-16] MEDS ORDERED: HumaLOG INSULIN (NovoLOG) PER UNIT SC SCH (21:00)
[2020-04-16] MEDS: LEVEMIR (INSULIN DETEMIR) 1 UNITS/0.01ML SC SCH (21:26)
[2020-04-16] MEDS: busPIRone 10 MG TAB PO SCH (21:26)
[2020-04-16] MEDS: PANTOPRAZOLE 40MG VIAL (C9113 PER 1) IV SCH (21:26)
[2020-04-16 22:00] VITALS: BP 144/94
[2020-04-17] MEDS: KCL 20MEQ in NS 1000ML 1,000 ML IV SCH ×2 (01:10→09:25)
[2020-04-17 01:31] LABS: BLOOD UREA NITROGEN 13 MG/DL (7-18); CALCIUM LEVEL 9.6 MG/DL (8.5-10.1); CARBON DIOXIDE LEVEL 34 MEQ/L (21-32); CHLORIDE LEVEL 104 MEQ/L (98-107); CREATININE FOR GFR 0.95 MG/DL (0.55-1.30); GLOMERULAR FILTRATION RATE > 60.0 (>58); GLUCOSE, FASTING 127 MG/DL (70-100); POTASSIUM SERUM 3.8 MEQ/L (3.5-5.1); SODIUM LEVEL 143 MEQ/L (136-145)
[2020-04-17 06:00] VITALS: BP 150/94
[2020-04-17] MEDS ORDERED: LEVOTHYROXINE 150MCG TABLET (0.15MG) PO SCH (06:00)
[2020-04-17 07:05] LABS: HEMATOCRIT 42.4 % (36.0-47.0); HEMOGLOBIN 14.6 g/dl (12.0-15.5); MEAN CORPUSCULAR HEMOGLOBIN 30.9 pg (27.0-33.0); MEAN CORPUSCULAR HGB CONC 34.4 g/dl (32.0-36.5); MEAN CORPUSCULAR VOLUME 89.6 fl (80.0-96.0); PLATELET COUNT, AUTOMATED 262 10^3/uL (150-450); RED BLOOD COUNT 4.73 10^6/uL (4.00-5.40); WHITE BLOOD COUNT 5.9 10^3/uL (4.0-10.0)
[2020-04-17 07:17] LABS: BLOOD UREA NITROGEN 12 MG/DL (7-18); CARBON DIOXIDE LEVEL 30 MEQ/L (21-32); CHLORIDE LEVEL 107 MEQ/L (98-107); CREATININE FOR GFR 0.81 MG/DL (0.55-1.30); GLOMERULAR FILTRATION RATE > 60.0 (>58); GLUCOSE, FASTING 96 MG/DL (70-100); POTASSIUM SERUM 3.7 MEQ/L (3.5-5.1); SODIUM LEVEL 142 MEQ/L (136-145)
[2020-04-17 07:21] LABS: ALBUMIN 2.5 GM/DL (3.2-5.2); ALT/SGPT 25 U/L (12-78); BILIRUBIN,TOTAL 0.5 MG/DL (0.2-1.0); BLOOD UREA NITROGEN 12 MG/DL (7-18); CALCIUM LEVEL 9.1 MG/DL (8.5-10.1); CARBON DIOXIDE LEVEL 31 MEQ/L (21-32); CHLORIDE LEVEL 107 MEQ/L (98-107); CREATININE FOR GFR 0.77 MG/DL (0.55-1.30); GLOMERULAR FILTRATION RATE > 60.0 (>58); GLUCOSE, FASTING 96 MG/DL (70-100); MAGNESIUM LEVEL 2.2 MG/DL (1.8-2.4); POTASSIUM SERUM 3.8 MEQ/L (3.5-5.1); SODIUM LEVEL 143 MEQ/L (136-145); TOTAL PROTEIN 6.3 GM/DL (6.4-8.2)
[2020-04-17] MEDS: HumaLOG INSULIN (NovoLOG) PER UNIT SC SCH (07:30)
[2020-04-17] MEDS ORDERED: PARoxetine 20MG TABLET PO SCH (09:00)
[2020-04-17] MEDS ORDERED: SPIRONOLACTONE 25 MG TAB PO SCH (09:00)
[2020-04-17] MEDS: LEVEMIR (INSULIN DETEMIR) 1 UNITS/0.01ML SC SCH (09:25)
[2020-04-17 09:27] VITALS: BP 152/82
[2020-04-17] MEDS: ENOXAPARIN 40MG/0.4ML SYRINGE (J1650 PER 10MG) SC SCH (09:27)
[2020-04-17] MEDS: busPIRone 10 MG TAB PO SCH (09:27)
[2020-04-17] MEDS: PANTOPRAZOLE 40MG VIAL (C9113 PER 1) IV SCH (09:27)
[2020-04-17] MEDS: ACETAMINOPHEN TAB 650MG DOSE (2X325MG) PO PRN (09:28)
[2020-04-17] MEDS ORDERED: OMEP40CA97 PO (10:27)
[2020-04-17] MEDS ORDERED: METO5TAB2 PO (10:27)
--- NOTE | 2020-04-17 13:06 | DS.PDOC ---
Discharge Summary General Date of Admission Apr 16, 2020 at 15:29 Date of Discharge 04/17/20 Discharge Summary PROCEDURES PERFORMED DURING STAY: [None]. ADMITTING DIAGNOSES: Nausea & vomiting Hypokalemia Syncope Diabetes Bipolar depression Abdominal pain DISCHARGE DIAGNOSES: Nausea & vomiting Hypokalemia Syncope Diabetes Bipolar depression Abdominal pain COMPLICATIONS/CHIEF COMPLAINT: Syncope. HISTORY OF PRESENT ILLNESS: Pt is a 49 year old female with a past medical history significant for hypertension, bipolar disorder, diabetes mellitus type 2, who presented to the [facility] emergency department with n/v. Pt stated that she has been having nausea and vomiting for past 2 weeks, patient had lost of appetite and states that she was dehydrated. In ER pt was found to have K 2.7, EKG shows sinus rhythm with QTc prolongation HOSPITAL COURSE: During this hospital stay the following issues addressed (1) Nausea & vomiting/abdominal pain Differential diagnosis includes gastritis, PUD, gastroparesis PPI trial Metoclopramide pending check H. pylori (2) Hypokalemia Secondary to vomiting Replaced Continue to monitor BMP (3) Syncope Most likely secondary to dehydration IV fluid (4) Diabetes Diabetes diet Detemir twice a day Insulin sliding scale (5) Bipolar depression Continue home meds DISCHARGE MEDICATIONS: Please see below. ALLERGIES: Please see below. PHYSICAL EXAMINATION ON DISCHARGE: VITAL SIGNS: Please see below. GENERAL APPEARANCE: NAD HEENT: no scleral icterus, no JVD, EOMI CARDIOVASCULAR: S1S2 LUNGS: CTA ABDOMEN: soft & not tender w palpitation MUSCULOSKELETAL: no cyanosis, no swelling INTEGUMENT: no generalized pallor NEUROLOGICAL: cranial nerve function from 2-12 intact intact, follows commands, speech not dysarthric LABORATORY DATA: Please see below. PROGNOSIS: Fair ACTIVITY: [As tolerated]. DIET: Cardiac DISPOSITION: Home ITEMS TO FOLLOWUP ON ON OUTPATIENT: Follow-up with PCP DISCHARGE CONDITION: [Stable]. TIME SPENT ON DISCHARGE: 35 minutes. Vital Signs/I&Os Vital Signs Date Time Temp Pulse Resp B/P (MAP) Pulse Ox O2 Delivery O2 Flow Rate FiO2 04/17/20 09:27 90 152/82 04/17/20 06:00 97.5 16 93 Room Air I&O- Last 24 Hours up to 6 AM 04/17/20 05:59 Intake Total 2420 ml Output Total 150 ml Balance 2270 ml Laboratory Data Labs 24H Laboratory Tests 2 04/16/20 17:09: Bedside Glucose (Misc Panel) 105 04/16/20 18:52: Anion Gap 4L, Glomerular Filtration Rate > 60.0, Calcium Level 10.5H 04/16/20 20:46: Bedside Glucose (Misc Panel) 116H 04/17/20 00:50: Anion Gap 5L, Glomerular Filtration Rate > 60.0, Calcium Level 9.6 04/17/20 06:48: Nucleated Red Blood Cells % (auto) 0.0, Anion Gap 5L, Glomerular Filtration Rate > 60.0, Calcium Level 9.0, Magnesium Level 2.2, Total Bilirubin 0.5, Aspartate Amino Transf (AST/SGOT) 23, Alanine Aminotransferase (ALT/SGPT) 25, Alkaline Phosphatase 121H, Total Protein 6.3L, Albumin 2.5L, Albumin/Globulin Ratio 0.7L CBC/BMP Laboratory Tests 04/16/20 18:52 04/17/20 00:50 04/17/20 06:48 FSBS Laboratory Tests Test 04/16/20 17:09 04/16/20 20:46 Range/Units Bedside Glucose (Misc Panel) 105 116 70-105 MG/DL Microbiology Microbiology 04/16/20 Respiratory Virus Panel (PCR) ([facility]) - Final, Complete Discharge Medications Scheduled Amlodipine Besylate (Amlodipine Besylate) 10 Mg Tablet, 10 MG PO DAILY, (Repor sahara) Buspirone HCl (Buspirone HCl) 30 Mg Tablet, 30 MG PO BID, (Reported) Dulaglutide (Trulicity) 1.5 Mg/0.5 Ml Pen.injctr, 1.5 MG SC QWEEK, (Reported) SundayDAY Insulin Glargine,Hum.rec.anlog (Basaglar Kwikpen U-100) 100 Unit/1 Ml Insuln.pen, 25 UNIT SC QHS, (Reported) Levothyroxine Sodium (Synthroid) 150 Mcg Tablet, 150 MCG PO DAILY, (Reported) Lisinopril (Lisinopril) 20 Mg Tablet, 20 MG PO QHS, (Reported) Omeprazole (Omeprazole) 40 Mg Capsule.dr, 40 MG PO DAILY Paroxetine HCl (Paroxetine) 40 Mg Tablet, 40 MG PO DAILY, (Reported) Spironolactone (Spironolactone) 25 Mg Tablet, 25 MG PO DAILY, (Reported) Scheduled PRN Metoclopramide HCl (Metoclopramide HCl) 5 Mg Tablet, 5 MG PO BID PRN for NAUSEA OR VOMITING Trazodone HCl (Trazodone HCl) 50 Mg Tablet, 50 MG PO QHS PRN for INSOMNIA, (Reported) 1-2 TABLETS PRN Allergies Coded Allergies: No Known Allergies (Unverified , 02/20/19) GAGE FISHER DO Apr 17, 2020 13:06
--- NOTE | 2020-04-17 20:42 | ECGEPIP ---
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
--- NOTE | 2020-04-19 09:51 | ECHO ---
DATE OF PROCEDURE: 04/16/2020 Age: 49 Gender: Female Height: 165 cm Weight: 79 kg REFERRING PHYSICIAN: Dr. Morrow INDICATION: Syncope. MEASUREMENTS: IVS 1.7 cm LV 3.8 cm LVPW 1.5 cm LA 3.3 cm Aorta 2.9 cm IVC 1.2 cm DOPPLER MEASUREMENT Mitral E wave velocity 51 Mitral A 69 E prime septal 3.5 E prime lateral 6.0 FINDINGS: This study is of acceptable technical quality. Underlying sinus rhythm. Left ventricle is of normal size and normal systolic function, I estimate LVEF around 65%. Moderate left ventricular hypertrophy is noted. The right ventricle is also normal size and systolic function. Both atria appear normal. All four cardiac valves were reasonably well seen and appeared normal with minimal degenerative abnormalities of the mitral valve. No pericardial effusion is noted. Inferior vena cava is of normal size. Aortic root, aortic arch, and visualized segment of abdominal aorta all appear normal. Doppler interrogation reveals competent aortic, mitral, tricuspid, and pulmonic valves. Mitral inflow pattern and tissue Doppler imaging of the mitral annulus revealed grade 1 diastolic dysfunction. CONCLUSIONS: 1. Study is of acceptable technical quality, underlying sinus rhythm. 2. Normal LV size with moderate LVH and preserved LV systolic function. Grade 1 diastolic dysfunction. 3. No significant valvular disease. 4. Normal central venous pressure. 5. Unable to estimate pulmonary artery pressure, but no signs to suggest pulmonary hypertension. MTDD
== END 2020-04-17 12:40 | disposition home or self-care (01) | DRG 249 ==
LOC: M ED 10:22 → EDBD 10:22 → M ED INP 15:29 → M MSPAV 16:22
PROVIDERS: ADMIT Internal Medicine; ATTEND Internal Medicine
DX: R11.2 Nausea with vomiting, unspecified (principal); E11.40 Type 2 diabetes mellitus with diabetic neuropathy, unspecified; F31.9 Bipolar disorder, unspecified; F41.9 Anxiety disorder, unspecified; G47.33 Obstructive sleep apnea (adult) (pediatric); I10 Essential (primary) hypertension; E78.5 Hyperlipidemia, unspecified; K21.9 Gastro-esophageal reflux disease without esophagitis; E87.6 Hypokalemia; R55 Syncope and collapse; E66.9 Obesity, unspecified; Z90.49 Acquired absence of other specified parts of digestive tract; Z79.4 Long term (current) use of insulin; Z79.899 Other long term (current) drug therapy; Z87.891 Personal history of nicotine dependence

== ENCOUNTER → 2020-04-23 | Outpatient (REF) | payer OTHER ==
[~2020-04-23] MED LIST changes: +ASPI-569 PO; -ASPI81TAEC PO; +METO5TAB2 PO; +OMEP40CA97 PO; +SPIR-10 PO
== END ==
LOC: M LAB REF 17:45
PROVIDERS: ATTEND Pediatrics
DX: R30.9 Painful micturition, unspecified (principal)

== ENCOUNTER → 2020-04-30 | Outpatient (REF) | payer OTHER ==
[2020-04-30 13:21] LABS: CHOLESTEROL RISK RATIO 5.947 (<5); THYROID STIMULATING HORMONE 2.02 uIU/ML (0.358-3.740)
== END ==
LOC: M LAB REF 12:14
PROVIDERS: ATTEND Family Medicine Addiction Medicine
DX: E11.69 Type 2 diabetes mellitus with other specified complication (principal)

== ENCOUNTER 2020-08-22 19:44 | Emergency (ER) | payer OTHER ==
[~2020-08-22] VITALS: Ht 165.1 cm; Wt 77.6 kg
[~2020-08-22 19:44] MED LIST changes: +OMEP40CA4 PO; -OMEP40CA97 PO
[2020-08-22 20:47] LABS: BASO # 0.1 10^3/uL (0.0-0.2); BASO % 0.7 % (0.0-1.0); EOS # 0.2 10^3/uL (0.0-0.5); EOS % 2.4 % (0.0-3.0); LYMPH # 2.8 10^3/uL (1.5-5.0); LYMPH % 29.4 % (24.0-44.0); MEAN CORPUSCULAR HEMOGLOBIN 30.2 pg (27.0-33.0); MEAN CORPUSCULAR HGB CONC 35.6 g/dl (32.0-36.5); MEAN CORPUSCULAR VOLUME 85.1 fl (80.0-96.0); MONO # 0.4 10^3/uL (0.0-0.8); MONO % 4.5 % (2.0-8.0); NEUTROPHILS % 62.8 % (36.0-66.0); PLATELET COUNT, AUTOMATED 349 10^3/uL (150-450); RED BLOOD COUNT 5.29 10^6/uL (4.00-5.40); WHITE BLOOD COUNT 9.6 10^3/uL (4.0-10.0)
[2020-08-22 21:07] LABS: ALBUMIN 2.8 GM/DL (3.2-5.2); ALT/SGPT 14 U/L (12-78); BILIRUBIN,DIRECT 0.2 MG/DL (0.0-0.2); BILIRUBIN,TOTAL 0.8 MG/DL (0.2-1.0); BLOOD UREA NITROGEN 8 MG/DL (7-18); CALCIUM LEVEL 9.4 MG/DL (8.5-10.1); CARBON DIOXIDE LEVEL 27 MEQ/L (21-32); CHLORIDE LEVEL 102 MEQ/L (98-107); CK-MB VALUE MASS 1.6 NG/ML (<3.6); CPK CREATINE PHOSPHOKINASE 36 U/L (26-192); CREATININE FOR GFR 0.93 MG/DL (0.55-1.30); GLOMERULAR FILTRATION RATE > 60.0 (>58); GLUCOSE, FASTING 233 MG/DL (70-100); LIPASE 52 U/L (73-393); MB/CK RELATIVE INDEX 4.44 (< OR =4); POTASSIUM SERUM 3.5 MEQ/L (3.5-5.1); SODIUM LEVEL 138 MEQ/L (136-145); TROPONIN I < 0.02 NG/ML (< 0.10)
--- NOTE | 2020-08-22 21:20 | ECGEPIP ---
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
[2020-08-22] MEDS ORDERED: diphenhydrAMINE 50MG/ML VIAL (J1200) IV STA (21:33)
[2020-08-22] MEDS ORDERED: METOCLOPRAMIDE INJ 10MG/2ML VIAL (J2765 PER 1) IV ONE (21:35)
[2020-08-22] MEDS ORDERED: FAMOTIDINE INJ 20MG/2ML VIAL (S0028 PER 1) IVP ONE (21:35)
[2020-08-22] MEDS ORDERED: NS 1,000 ML IV ONE (21:35)
[2020-08-23] MEDS ORDERED: NS 1,000 ML IV ONE (00:35)
[2020-08-23] MEDS ORDERED: REGL10TA6 PO (03:34)
[2020-08-23] MEDS ORDERED: PEPC1TAB5 PO (03:34)
[2020-08-23] MEDS ORDERED: hydrALAZINE 20MG/ML 1ML VIAL (J0360 PER 20MG) IV ONE (04:15)
[2020-08-23 04:45] VITALS: BP 174/99
== END 2020-08-23 05:30 | disposition home or self-care (01) ==
LOC: M ED 19:44
DX: K29.70 Gastritis, unspecified, without bleeding (principal); E11.9 Type 2 diabetes mellitus without complications; I10 Essential (primary) hypertension; E78.5 Hyperlipidemia, unspecified; Z86.73 Personal history of transient ischemic attack (TIA), and cerebral infarction without residual deficits; Z90.49 Acquired absence of other specified parts of digestive tract; Z79.899 Other long term (current) drug therapy; Z79.4 Long term (current) use of insulin
CPT/HCPCS: 80048; 80076; 82550; 82553; 83605; 83690; 85025; 93005; 93041; 96361; 96374; 96375; 99285; J0360; J1200; J2765

== ENCOUNTER → 2020-10-22 | Outpatient (CLI) | payer OTHER ==
[~2020-10-22] MED LIST changes: +PEPC1TAB5 PO; +REGL10TA6 PO
--- NOTE | 2020-10-22 17:49 | REPVR ---
PROCEDURE INFORMATION: Exam: MR Head Without Contrast Exam date and time: 10/22/2020 2:58 PM Age: 50 years old Clinical indication: Transient alteration of awareness TECHNIQUE: Imaging protocol: MR of the head without contrast. COMPARISON: CT Head without contrast 03/29/2020 6:54 PM FINDINGS: Brain: There are occasional nonspecific foci of high signal abnormality in the segura radiata and centrum semiovale. These are best seen on the flair images. These foci may represent areas of gliosis, demyelination, and/or chronic ischemic change. There is moderate cerebral atrophy. This is more than one would expect in an otherwise healthy 50-year-old female. Cerebral ventricles: Normal. No ventriculomegaly. Bones/joints: Unremarkable. Paranasal sinuses: Normal as visualized. No acute sinusitis. Mastoid air cells: Normal as visualized. No mastoid effusion. Orbital cavity: Unremarkable. Soft tissues: Unremarkable. IMPRESSION: 1. There are occasional nonspecific foci of high signal abnormality in the segura radiata and centrum semiovale. These are best seen on the flair images. These foci may represent areas of gliosis, demyelination, and/or chronic ischemic change. No acute infarct is identified. 2. There is moderate cerebral atrophy. This is more than one would expect in an otherwise healthy 50-year-old female. Please correlate with any known systemic illness. Electronically signed by: Jose Antonio Grant On 10/22/2020 17:49:09 PM
== END ==
LOC: M PLARAD 13:42
PROVIDERS: ATTEND Nurse Practitioner
DX: G31.9 Degenerative disease of nervous system, unspecified (principal); R40.4 Transient alteration of awareness; R53.1 Weakness; F41.1 Generalized anxiety disorder; G25.2 Other specified forms of tremor

== ENCOUNTER → 2021-01-12 | Outpatient (CLI) | payer OTHER ==
[~2021-01-12] MED LIST changes: +GLIP5TAB20 PO; +HYDR-3363 PO; +TRAZ-189 PO
== END ==
LOC: M LABSMTC 09:09
PROVIDERS: ATTEND Anesthesiology
DX: Z01.818 Encounter for other preprocedural examination (principal); Z11.52 Encounter for screening for COVID-19

== ENCOUNTER 2021-01-17 14:51 | Day surgery (SDC) | payer OTHER ==
[~2021-01-17] VITALS: Ht 165.1 cm; Wt 86.6 kg
[~2021-01-17 14:51] MED LIST changes: +LR 1,000 ML IV ONE; +TIZA10TA PO; -TIZA4TAB4 PO
[2021-01-17 15:27] LABS: HEMATOCRIT 42.9 % (36.0-47.0); HEMOGLOBIN 14.9 g/dl (12.0-15.5); MEAN CORPUSCULAR HEMOGLOBIN 30.5 pg (27.0-33.0); MEAN CORPUSCULAR HGB CONC 34.7 g/dl (32.0-36.5); MEAN CORPUSCULAR VOLUME 87.9 fl (80.0-96.0); PLATELET COUNT, AUTOMATED 303 10^3/uL (150-450); RED BLOOD COUNT 4.88 10^6/uL (4.00-5.40); WHITE BLOOD COUNT 9.6 10^3/uL (4.0-10.0)
[2021-01-17] MEDS ORDERED: dexameTHASONE 4 MG/ML 1ML VIAL (J1100 PER 1MG) As Ordered ONE (17:58)
[2021-01-17] MEDS ORDERED: propofoL 200 MG/20 ML VIAL As Ordered ONE ×2 (17:58→18:21)
[2021-01-17] MEDS ORDERED: KETOROLAC 60MG 2ML VIAL As Ordered ONE (17:58)
[2021-01-17] MEDS ORDERED: MIDAZOLAM INJ 2MG/2ML VIAL (J2250 PER 1MG) As Ordered ONE (17:58)
[2021-01-17] MEDS ORDERED: ROCURONIUM BROMIDE 50 MG/5 ML VIAL As Ordered ONE ×2 (17:58→18:21)
[2021-01-17] MEDS ORDERED: LIDOCAINE 2% 100MG/5ML SDV (FOR ANES.) As Ordered ONE ×2 (17:58→18:21)
[2021-01-17] MEDS ORDERED: fentaNYL 100 MCG/2 ML INJECTION As Ordered ONE ×2 (17:58→18:14)
[2021-01-17] MEDS ORDERED: ONDANSETRON 4MG/2ML VIAL As Ordered ONE (17:58)
[2021-01-17] MEDS ORDERED: ACETAMINOPHEN 1000MG 100ML IV BTL (OFIRMEV) (J0131 PER 10MG) As Ordered ONE (17:58)
[2021-01-17] MEDS ORDERED: METOCLOPRAMIDE INJ 10MG/2ML VIAL (J2765 PER 1) As Ordered ONE (17:58)
[2021-01-17] MEDS ORDERED: SUGAMMADEX SODIUM 500 MG/5 ML VIAL (BRIDION) As Ordered ONE (17:58)
[2021-01-17] MEDS ORDERED: BUPIVACAINE/EPIN 0.25% 30 ML VIAL As Ordered ONE (18:02)
[2021-01-17] MEDS ORDERED: LABETALOL 100MG/20ML VIAL As Ordered ONE (18:30)
[2021-01-17] MEDS ORDERED: HYDROMORPHONE HCL 0.5 MG/ 0.5 ML SYRINGE (J1170 PER 1) IV PRN (19:15)
[2021-01-17] MEDS ORDERED: ONDANSETRON 4MG/2ML VIAL IV PRN (19:15)
[2021-01-17] MEDS ORDERED: fentaNYL 100 MCG/2 ML INJECTION IV PRN (19:15)
[2021-01-17] MEDS ORDERED: LR 1,000 ML IV SCH (19:15)
[2021-01-17] MEDS ORDERED: PERCOCET 5MG/325MG TAB PO PRN (19:20)
[2021-01-17] MEDS ORDERED: oxyCODONE 5MG TAB PO PRN (19:20)
[2021-01-17 20:40] VITALS: BP 133/83
[2021-01-18] MEDS ORDERED: IBUPROFEN 800 MG TAB PO SCH
== END 2021-01-17 20:44 | disposition home or self-care (01) ==
LOC: M SDC 14:51
PROVIDERS: ATTEND Obstetrics & Gynecology
DX: Z30.2 Encounter for sterilization (principal); I10 Essential (primary) hypertension; E10.9 Type 1 diabetes mellitus without complications; Z79.4 Long term (current) use of insulin; E03.9 Hypothyroidism, unspecified; K21.9 Gastro-esophageal reflux disease without esophagitis; F17.218 Nicotine dependence, cigarettes, with other nicotine-induced disorders; Z79.899 Other long term (current) drug therapy; J44.9 Chronic obstructive pulmonary disease, unspecified; F41.9 Anxiety disorder, unspecified; F32.9 Major depressive disorder, single episode, unspecified; G40.909 Epilepsy, unspecified, not intractable, without status epilepticus
CPT/HCPCS: 36415; 58661; 81025; 85027; 86850; 86900; 86901; 88302; J0131; J1100; J1885; J2250; J2405; J2765; J3010

== ENCOUNTER → 2021-05-29 | Outpatient (REF) | payer OTHER ==
[~2021-05-29] MED LIST changes: -LR 1,000 ML IV ONE
== END ==
LOC: M WUC 17:27
PROVIDERS: ATTEND Physician Assistant
DX: R30.0 Dysuria (principal)

== ENCOUNTER 2021-07-25 20:46 | Inpatient (IN) | payer OTHER ==
[~2021-07-25] VITALS: Ht 165.1 cm; Wt 91.1 kg
[~2021-07-25 20:46] MED LIST changes: -TRIA37.53 PO; +TRIA37.577 PO
[2021-07-25] MEDS ORDERED: lisinopriL 40MG TAB PO SCH (21:00)
[2021-07-25] MEDS ORDERED: DIVALPROEX 125 MG TAB PO SCH (21:00)
[2021-07-25] MEDS ORDERED: traZODone 100 MG TAB PO SCH (21:00)
[2021-07-25] MEDS ORDERED: ISOVUE-370 76% 100ML VIAL As Ordered ONE (21:12)
[2021-07-25 21:44] LABS: BASO # 0.1 10^3/uL (0.0-0.2); BASO % 0.9 % (0.0-1.0); EOS # 0.6 10^3/uL (0.0-0.5); EOS % 7.8 % (0.0-3.0); HEMATOCRIT 40.5 % (36.0-47.0); HEMOGLOBIN 13.5 g/dl (12.0-15.5); LYMPH # 2.5 10^3/uL (1.5-5.0); LYMPH % 31.3 % (24.0-44.0); MEAN CORPUSCULAR HEMOGLOBIN 29.8 pg (27.0-33.0); MEAN CORPUSCULAR HGB CONC 33.3 g/dl (32.0-36.5); MEAN CORPUSCULAR VOLUME 89.4 fl (80.0-96.0); MONO # 0.5 10^3/uL (0.0-0.8); MONO % 6.1 % (2.0-8.0); NEUTROPHILS # 4.3 10^3/uL (1.5-8.5); NEUTROPHILS % 53.6 % (36.0-66.0); PLATELET COUNT, AUTOMATED 249 10^3/uL (150-450); RED BLOOD COUNT 4.53 10^6/uL (4.00-5.40)
[2021-07-25 21:54] LABS: INR 0.9; PROTHROMBIN TIME 12.5 SECONDS (12.7-14.5)
[2021-07-25 21:55] LABS: PARTIAL THROMBOPLASTIN TIME 26.5 SECONDS (25.9-37.0)
[2021-07-25 22:05] LABS: BLOOD UREA NITROGEN 24 MG/DL (7-18); CALCIUM LEVEL 10.2 MG/DL (8.5-10.1); CARBON DIOXIDE LEVEL 30 MEQ/L (21-32); CHLORIDE LEVEL 108 MEQ/L (98-107); CREATININE FOR GFR 0.98 MG/DL (0.55-1.30); GLOMERULAR FILTRATION RATE > 60.0 (>51); GLUCOSE, FASTING 108 MG/DL (70-100); POTASSIUM SERUM 4.7 MEQ/L (3.5-5.1); SODIUM LEVEL 141 MEQ/L (136-145)
[2021-07-25 22:07] LABS: MB/CK RELATIVE INDEX 2.5 (< OR =4)
[2021-07-25 22:16] LABS: RSV AMPLIFICATION NEGATIVE (NEGATIVE)
[2021-07-25] MEDS ORDERED: ASPIRIN 325 MG TAB PO ONE (22:35)
[2021-07-25] MEDS ORDERED: ACETAMINOPHEN TAB 650MG DOSE (2X325MG) PO PRN (23:25)
[2021-07-25] MEDS ORDERED: GLUCAGON INJ 1MG VIAL SC PRN (23:25)
[2021-07-25] MEDS ORDERED: MOM 30ML SUSPENSION UDC PO PRN (23:25)
[2021-07-25] MEDS ORDERED: GLUCOSE 4GM CHEW TABLET PO PRN (23:25)
[2021-07-25] MEDS ORDERED: DEXTROSE 50% 50 ML SYRINGE IV PRN (23:25)
[2021-07-25] MEDS ORDERED: LISI40TA4 PO (23:41)
[2021-07-25] MEDS ORDERED: OMEP40CA5 PO (23:41)
[2021-07-25] MEDS ORDERED: D200CAP2 PO (23:41)
[2021-07-25] MEDS ORDERED: TRUL10IN SC (23:42)
[2021-07-25] MEDS ORDERED: ALBU8.5H INH (23:42)
[2021-07-25] MEDS ORDERED: DIVA1TAB48 PO (23:42)
[2021-07-25] MEDS ORDERED: AIRD1INH3 INH (23:42)
[2021-07-25] MEDS ORDERED: FLON1SPR (23:42)
[2021-07-25] MEDS ORDERED: ALPR0.25 PO (23:42)
[2021-07-25] MEDS ORDERED: HOME MED LIST COMPLETE! XX SCH (23:45)
[2021-07-25 23:50] VITALS: BP 187/104
[2021-07-26] MEDS: hydrOXYzine 25 MG TAB PO SCH ×2 (02:21→08:16)
[2021-07-26 04:00] VITALS: BP 157/87
[2021-07-26] MEDS ORDERED: LEVOTHYROXINE 150MCG TABLET (0.15MG) PO SCH (06:00)
[2021-07-26 06:01] LABS: HEMATOCRIT 38.8 % (36.0-47.0); HEMOGLOBIN 12.9 g/dl (12.0-15.5); MEAN CORPUSCULAR HEMOGLOBIN 29.5 pg (27.0-33.0); MEAN CORPUSCULAR HGB CONC 33.2 g/dl (32.0-36.5); MEAN CORPUSCULAR VOLUME 88.8 fl (80.0-96.0); PLATELET COUNT, AUTOMATED 248 10^3/uL (150-450); RED BLOOD COUNT 4.37 10^6/uL (4.00-5.40); WHITE BLOOD COUNT 7.3 10^3/uL (4.0-10.0)
[2021-07-26 06:28] LABS: ALBUMIN 2.6 GM/DL (3.2-5.2); ALT/SGPT 20 U/L (12-78); BILIRUBIN,TOTAL 0.2 MG/DL (0.2-1.0); BLOOD UREA NITROGEN 20 MG/DL (7-18); CALCIUM LEVEL 9.4 MG/DL (8.5-10.1); CARBON DIOXIDE LEVEL 31 MEQ/L (21-32); CHLORIDE LEVEL 107 MEQ/L (98-107); CREATININE FOR GFR 0.94 MG/DL (0.55-1.30); GLOMERULAR FILTRATION RATE > 60.0 (>51); GLUCOSE, FASTING 136 MG/DL (70-100); POTASSIUM SERUM 4.3 MEQ/L (3.5-5.1); SODIUM LEVEL 141 MEQ/L (136-145); TOTAL PROTEIN 6.3 GM/DL (6.4-8.2)
[2021-07-26 07:34] VITALS: BP 140/69
[2021-07-26] MEDS ORDERED: ADVAIR HFA 115/21MCG INHALER INH SCH (08:00)
[2021-07-26 08:17] VITALS: BP 140/69
[2021-07-26] MEDS: INSULIN LISPRO (NovoLOG) PER UNIT SC SCH ×2 (08:18→12:00)
[2021-07-26] MEDS ORDERED: ALPRAZolam 0.25 MG TAB PO SCH (09:00)
[2021-07-26] MEDS ORDERED: busPIRone 10 MG TAB PO SCH (09:00)
[2021-07-26] MEDS ORDERED: GABAPENTIN 300 MG CAP PO SCH (09:00)
[2021-07-26] MEDS ORDERED: ASPIRIN 81 MG CHEW TABLET PO SCH ×3 (09:00)
[2021-07-26] MEDS ORDERED: ENOXAPARIN 40MG/0.4ML SYRINGE (J1650 PER 10MG) SC SCH (09:00)
[2021-07-26] MEDS ORDERED: PARoxetine 20MG TABLET PO SCH (09:00)
[2021-07-26] MEDS ORDERED: OMEPRAZOLE 20MG CAP PO SCH (09:00)
[2021-07-26 11:37] VITALS: BP 118/64
[2021-07-26] MEDS ORDERED: INSULIN LISPRO (NovoLOG) PER UNIT SC SCH (21:00)
[2021-07-26] MEDS ORDERED: ATORVASTATIN 20 MG TAB PO SCH (21:00)
[2021-07-26] MEDS ORDERED: LEVEMIR (INSULIN DETEMIR) 1 UNITS/0.01ML SC SCH (21:00)
== END 2021-07-26 15:52 | disposition left against medical advice (07) | DRG 54 ==
LOC: M ED 20:46 → M ED INP 23:22 → ENRESERV 07-26 00:04 → M PCU 07-26 00:49
PROVIDERS: ADMIT Family Medicine; ATTEND Family Medicine
DX: G43.109 Migraine with aura, not intractable, without status migrainosus (principal); E11.40 Type 2 diabetes mellitus with diabetic neuropathy, unspecified; I10 Essential (primary) hypertension; F31.9 Bipolar disorder, unspecified; F41.9 Anxiety disorder, unspecified; E78.2 Mixed hyperlipidemia; K21.9 Gastro-esophageal reflux disease without esophagitis; E03.9 Hypothyroidism, unspecified; R39.15 Urgency of urination; J45.909 Unspecified asthma, uncomplicated; J44.9 Chronic obstructive pulmonary disease, unspecified; I25.10 Atherosclerotic heart disease of native coronary artery without angina pectoris; E55.9 Vitamin D deficiency, unspecified; G47.33 Obstructive sleep apnea (adult) (pediatric); Z79.84 Long term (current) use of oral hypoglycemic drugs; Z90.49 Acquired absence of other specified parts of digestive tract; Z79.899 Other long term (current) drug therapy

== ENCOUNTER → 2021-08-01 | Outpatient (REF) | payer OTHER ==
[~2021-08-01] MED LIST changes: +AIRD1INH3 INH; +ALBU8.5H INH; +ALPR0.25 PO; +D200CAP2 PO; +DIVA1TAB48 PO; +FLON1SPR; +LISI40TA4 PO; +OMEP40CA5 PO; +TRUL10IN SC
[2021-08-01 18:53] LABS: HEMOGLOBIN A1c 6.9 %
== END ==
LOC: M LAB REF 16:49
PROVIDERS: ATTEND Pediatrics
DX: E11.69 Type 2 diabetes mellitus with other specified complication (principal)

== ENCOUNTER 2021-08-07 20:32 | Inpatient (IN) | payer OTHER ==
[~2021-08-07] VITALS: Ht 165.1 cm; Wt 89.3 kg
[2021-08-07] MEDS ORDERED: ATOR80TA59 PO (21:01)
[2021-08-07] MEDS ORDERED: ASPI-226 PO (21:01)
[2021-08-07 21:10] LABS: BASO # 0.1 10^3/uL (0.0-0.2); BASO % 0.5 % (0.0-1.0); EOS # 0.5 10^3/uL (0.0-0.5); EOS % 4.7 % (0.0-3.0); HEMATOCRIT 39.3 % (36.0-47.0); HEMOGLOBIN 13.1 g/dl (12.0-15.5); LYMPH # 2.5 10^3/uL (1.5-5.0); LYMPH % 26.1 % (24.0-44.0); MEAN CORPUSCULAR HGB CONC 33.3 g/dl (32.0-36.5); MEAN CORPUSCULAR VOLUME 89.9 fl (80.0-96.0); MONO # 0.5 10^3/uL (0.0-0.8); MONO % 5.1 % (2.0-8.0); NEUTROPHILS # 6.1 10^3/uL (1.5-8.5); NEUTROPHILS % 63.3 % (36.0-66.0); PLATELET COUNT, AUTOMATED 279 10^3/uL (150-450); RED BLOOD COUNT 4.37 10^6/uL (4.00-5.40); WHITE BLOOD COUNT 9.6 10^3/uL (4.0-10.0)
[2021-08-07 21:25] LABS: INR 0.9; PROTHROMBIN TIME 12.6 SECONDS (12.7-14.5)
[2021-08-07 21:26] LABS: PARTIAL THROMBOPLASTIN TIME 27.7 SECONDS (25.9-37.0)
[2021-08-07 21:42] LABS: MB/CK RELATIVE INDEX 2.14 (< OR =4)
[2021-08-07 21:44] LABS: RSV AMPLIFICATION NEGATIVE (NEGATIVE)
[2021-08-07] MEDS ORDERED: ISOVUE-370 76% 100ML VIAL As Ordered ONE (22:09)
[2021-08-07] MEDS ORDERED: TRUL0.5I INJ (23:42)
[2021-08-07] MEDS ORDERED: med rec comment (23:44)
[2021-08-07] MEDS ORDERED: HOME MED LIST COMPLETE! XX SCH (23:45)
[2021-08-08] VITALS (8 sets, daily range): BP systolic 136–178; BP diastolic 83–96
[2021-08-08] MEDS: NS 1,000 ML IV SCH ×3 (01:00→12:24)
[2021-08-08] MEDS ORDERED: PANTOPRAZOLE 40MG TAB (PROTONIX) PO ONE (01:40)
[2021-08-08] MEDS ORDERED: DEXTROSE 50% 50 ML SYRINGE IV PRN (01:40)
[2021-08-08] MEDS ORDERED: GLUCOSE 4GM CHEW TABLET PO PRN (01:40)
[2021-08-08] MEDS ORDERED: ALBUTEROL 90 MCG/ACT 8GM HFA INHALER INH PRN (01:40)
[2021-08-08] MEDS ORDERED: GLUCAGON INJ 1MG VIAL SC PRN (01:40)
[2021-08-08] MEDS ORDERED: NS 1,000 ML IV ONE (01:40)
[2021-08-08] MEDS: LEVOTHYROXINE 150MCG TABLET (0.15MG) PO SCH (05:59)
[2021-08-08] MEDS: HEPARIN SOD (PORCINE) 5000UNITS/ML 1ML VIAL/SYRINGE SQ SCH ×3 (06:00→21:34)
[2021-08-08] MEDS ORDERED: INSULIN LISPRO (NovoLOG) PER UNIT SC SCH ×2 (06:00→21:00)
[2021-08-08 06:12] LABS: CALCIUM LEVEL 9.3 MG/DL (8.5-10.1); CREATININE FOR GFR 1.39 MG/DL (0.55-1.30); GLOMERULAR FILTRATION RATE 42.7 (>51); POTASSIUM SERUM 4.8 MEQ/L (3.5-5.1)
[2021-08-08] MEDS: ASPIRIN 81MG ENTERIC TABLET PO SCH (08:38)
[2021-08-08] MEDS: FLUTICASONE PROP 0.05% NASAL SPRAY 16 GM (FLONASE) SCH (08:39)
[2021-08-08] MEDS: busPIRone 10 MG TAB PO SCH ×2 (08:39→21:33)
[2021-08-08] MEDS: INSULIN LISPRO (NovoLOG) PER UNIT SC SCH ×2 (12:00→18:30)
[2021-08-08] MEDS: ALPRAZolam 0.25 MG TAB PO SCH (18:30)
[2021-08-08] MEDS ORDERED: ATORVASTATIN 20 MG TAB PO SCH (21:00)
[2021-08-08] MEDS ORDERED: lisinopriL 40MG TAB PO SCH (21:00)
[2021-08-08] MEDS ORDERED: DIVALPROEX 125 MG TAB PO SCH (21:00)
[2021-08-09 03:46] VITALS: BP 173/95
[2021-08-09 04:21] VITALS: BP 158/86
[2021-08-09] MEDS: LEVOTHYROXINE 150MCG TABLET (0.15MG) PO SCH (05:32)
[2021-08-09] MEDS: HEPARIN SOD (PORCINE) 5000UNITS/ML 1ML VIAL/SYRINGE SQ SCH (05:33)
[2021-08-09 05:42] LABS: BASO # 0.1 10^3/uL (0.0-0.2); BASO % 0.7 % (0.0-1.0); EOS # 0.7 10^3/uL (0.0-0.5); HEMOGLOBIN 12.9 g/dl (12.0-15.5); MEAN CORPUSCULAR HEMOGLOBIN 29.8 pg (27.0-33.0); MEAN CORPUSCULAR HGB CONC 33.9 g/dl (32.0-36.5); MEAN CORPUSCULAR VOLUME 87.8 fl (80.0-96.0); MONO # 0.4 10^3/uL (0.0-0.8); MONO % 5.1 % (2.0-8.0); NEUTROPHILS # 4.9 10^3/uL (1.5-8.5); NEUTROPHILS % 60.8 % (36.0-66.0); PLATELET COUNT, AUTOMATED 260 10^3/uL (150-450); RED BLOOD COUNT 4.33 10^6/uL (4.00-5.40); WHITE BLOOD COUNT 8.1 10^3/uL (4.0-10.0)
[2021-08-09 06:03] LABS: BLOOD UREA NITROGEN 16 MG/DL (7-18); CALCIUM LEVEL 10.1 MG/DL (8.5-10.1); CARBON DIOXIDE LEVEL 29 MEQ/L (21-32); CHLORIDE LEVEL 107 MEQ/L (98-107); CREATININE FOR GFR 0.96 MG/DL (0.55-1.30); GLOMERULAR FILTRATION RATE > 60.0 (>51); GLUCOSE, FASTING 144 MG/DL (70-100); POTASSIUM SERUM 4.5 MEQ/L (3.5-5.1); SODIUM LEVEL 140 MEQ/L (136-145)
[2021-08-09] MEDS: INSULIN LISPRO (NovoLOG) PER UNIT SC SCH (07:30)
[2021-08-09 08:00] VITALS: BP 182/98
[2021-08-09] MEDS ORDERED: MAG SULF 1GM/100ML (MAG RUN) 1 GM in IV 1 EA IV ONE (08:30)
[2021-08-09 08:53] VITALS: BP 158/86
[2021-08-09] MEDS: FLUTICASONE PROP 0.05% NASAL SPRAY 16 GM (FLONASE) SCH (08:53)
[2021-08-09] MEDS: busPIRone 10 MG TAB PO SCH (08:53)
[2021-08-09] MEDS: ASPIRIN 81MG ENTERIC TABLET PO SCH (08:53)
[2021-08-09] MEDS: ALPRAZolam 0.25 MG TAB PO SCH (08:53)
== END 2021-08-09 11:50 | disposition left against medical advice (07) | DRG 45 ==
LOC: M ED 20:32 → EDBD 20:32 → M ED INP 08-08 01:37 → ENRESERV 08-08 02:30 → M PCU 08-08 04:14
PROVIDERS: ADMIT Internal Medicine; ATTEND Internal Medicine
DX: I63.9 Cerebral infarction, unspecified (principal); G93.40 Encephalopathy, unspecified; E11.40 Type 2 diabetes mellitus with diabetic neuropathy, unspecified; R56.9 Unspecified convulsions; R53.1 Weakness; F41.9 Anxiety disorder, unspecified; F31.9 Bipolar disorder, unspecified; R27.0 Ataxia, unspecified; R29.810 Facial weakness; I10 Essential (primary) hypertension; E03.9 Hypothyroidism, unspecified; Z90.49 Acquired absence of other specified parts of digestive tract; Z79.4 Long term (current) use of insulin; Z79.82 Long term (current) use of aspirin; Z79.899 Other long term (current) drug therapy

== ENCOUNTER → 2021-11-04 | Outpatient (CLI) | payer OTHER ==
[~2021-11-04] MED LIST changes: +ASPI-226 PO; +ATOR80TA59 PO; +med rec comment
== END ==
LOC: M CARPUL 11:35
PROVIDERS: ATTEND Pediatrics
DX: I63.9 Cerebral infarction, unspecified (principal); I36.8 Other nonrheumatic tricuspid valve disorders; I34.8 Other nonrheumatic mitral valve disorders; I70.0 Atherosclerosis of aorta

== ENCOUNTER → 2021-11-22 | Outpatient (REF) | payer OTHER | LOC: M WUC 16:06 | PROVIDERS: ATTEND Physician Assistant Medical | DX: N39.0 Urinary tract infection, site not specified (principal) ==

== ENCOUNTER → 2021-11-22 | Outpatient (CLI) | payer OTHER | LOC: M PLAIMG 14:46 | PROVIDERS: ATTEND Nurse Practitioner | DX: G40.89 Other seizures (principal); G31.84 Mild cognitive impairment of uncertain or unknown etiology; G45.0 Vertebro-basilar artery syndrome; R42 Dizziness and giddiness; R55 Syncope and collapse; E11.42 Type 2 diabetes mellitus with diabetic polyneuropathy; R53.1 Weakness; R40.4 Transient alteration of awareness ==

== ENCOUNTER → 2022-02-01 | Outpatient (REF) | payer OTHER ==
[2022-02-01 17:14] LABS: BASO # 0.1 10^3/uL (0.0-0.2); BASO % 1.2 % (0.0-1.0); EOS # 0.6 10^3/uL (0.0-0.5); EOS % 6.2 % (0.0-3.0); HEMOGLOBIN 14.3 g/dl (12.0-15.5); LYMPH # 2.5 10^3/uL (1.5-5.0); LYMPH % 28.2 % (24.0-44.0); MEAN CORPUSCULAR HEMOGLOBIN 28.8 pg (27.0-33.0); MEAN CORPUSCULAR HGB CONC 32.5 g/dl (32.0-36.5); MEAN CORPUSCULAR VOLUME 88.7 fl (80.0-96.0); MONO # 0.4 10^3/uL (0.0-0.8); MONO % 4.7 % (2.0-8.0); NEUTROPHILS # 5.3 10^3/uL (1.5-8.5); NEUTROPHILS % 59.3 % (36.0-66.0); PLATELET COUNT, AUTOMATED 337 10^3/uL (150-450); RED BLOOD COUNT 4.96 10^6/uL (4.00-5.40); WHITE BLOOD COUNT 8.9 10^3/uL (4.0-10.0)
[2022-02-01 17:57] LABS: THYROID STIMULATING HORMONE 11.138 uIU/ML (0.55-4.78)
[2022-02-01 17:58] LABS: BILIRUBIN,TOTAL 0.4 MG/DL (0.3-1.2); CALCIUM LEVEL 10.8 MG/DL (8.5-10.1); CREATININE FOR GFR 1.76 MG/DL (0.55-1.30); GLOMERULAR FILTRATION RATE 32.5 (>51); TOTAL PROTEIN 7.5 G/DL (5.7-8.2)
[2022-02-01 19:42] LABS: HEMOGLOBIN A1c 8.8 % (4.0-6.0)
== END ==
LOC: M LAB REF 16:35
PROVIDERS: ATTEND Pediatrics
DX: E11.69 Type 2 diabetes mellitus with other specified complication (principal)

== ENCOUNTER 2022-06-26 16:44 | Emergency (ER) | payer OTHER ==
[~2022-06-26] VITALS: Ht 165.1 cm; Wt 97.1 kg
[~2022-06-26 16:44] MED LIST changes: -PAXI30TA11 PO; +PAXI30TA12 PO
[2022-06-26] MEDS ORDERED: SERT50TA29 PO (17:03)
[2022-06-26] MEDS ORDERED: LABETALOL 100MG/20ML VIAL IV STA (17:34)
[2022-06-26] MEDS ORDERED: ONDANSETRON 4MG 2ML VIAL IV ONE (17:35)
[2022-06-26] MEDS ORDERED: MORPHINE 4 MG/ML 1ML VIAL IV ONE ×2 (17:35→18:45)
[2022-06-26 17:48] VITALS: BP 212/95
[2022-06-26 18:41] LABS: BASO # 0.1 10^3/uL (0.0-0.2); BASO % 0.8 % (0.0-1.0); EOS # 0.6 10^3/uL (0.0-0.5); EOS % 5.5 % (0.0-3.0); HEMATOCRIT 45.8 % (36.0-47.0); HEMOGLOBIN 15.4 g/dl (12.0-15.5); LYMPH # 1.6 10^3/uL (1.5-5.0); LYMPH % 15.5 % (24.0-44.0); MEAN CORPUSCULAR HEMOGLOBIN 29.6 pg (27.0-33.0); MEAN CORPUSCULAR HGB CONC 33.6 g/dl (32.0-36.5); MEAN CORPUSCULAR VOLUME 87.9 fl (80.0-96.0); MONO # 0.4 10^3/uL (0.0-0.8); MONO % 4.2 % (2.0-8.0); NEUTROPHILS # 7.6 10^3/uL (1.5-8.5); NEUTROPHILS % 73.1 % (36.0-66.0); PLATELET COUNT, AUTOMATED 287 10^3/uL (150-450); RED BLOOD COUNT 5.21 10^6/uL (4.00-5.40); WHITE BLOOD COUNT 10.4 10^3/uL (4.0-10.0)
[2022-06-26 19:05] LABS: ALBUMIN 2.9 G/DL (3.2-5.2); BILIRUBIN,DIRECT 0.2 MG/DL (<0.4); BILIRUBIN,TOTAL 0.6 MG/DL (0.3-1.2); CREATININE FOR GFR 1.33 MG/DL (0.55-1.30); GLOMERULAR FILTRATION RATE 44.8 (>51); POTASSIUM SERUM 4.6 MMOL/L (3.5-5.1); TOTAL PROTEIN 7.6 G/DL (5.7-8.2)
[2022-06-26] MEDS ORDERED: ISOVUE-370 76% 100ML VIAL As Ordered ONE (19:24)
[2022-06-26 20:44] VITALS: BP 150/104
== END 2022-06-26 21:27 | disposition left against medical advice (07) ==
LOC: M ED 16:44
DX: I16.0 Hypertensive urgency (principal); R10.9 Unspecified abdominal pain; E11.40 Type 2 diabetes mellitus with diabetic neuropathy, unspecified; F41.9 Anxiety disorder, unspecified; F32.A Depression, unspecified; F31.9 Bipolar disorder, unspecified
CPT/HCPCS: 36415; 71046; 74177; 80048; 80076; 83605; 83690; 85025; 93005; 93041; 96374; 96375; 96376; 99284; J2405; Q9967

== ENCOUNTER 2022-06-28 14:03 | Emergency (ER) | payer OTHER ==
[~2022-06-28] VITALS: Ht 165.1 cm; Wt 90.9 kg
[~2022-06-28 14:03] MED LIST changes: +SERT50TA29 PO
[2022-06-28 15:15] LABS: BASO # 0.1 10^3/uL (0.0-0.2); EOS # 0.5 10^3/uL (0.0-0.5); EOS % 5.9 % (0.0-3.0); HEMATOCRIT 46.3 % (36.0-47.0); HEMOGLOBIN 15.4 g/dl (12.0-15.5); LYMPH # 1.9 10^3/uL (1.5-5.0); LYMPH % 21.4 % (24.0-44.0); MEAN CORPUSCULAR HEMOGLOBIN 29.1 pg (27.0-33.0); MEAN CORPUSCULAR HGB CONC 33.3 g/dl (32.0-36.5); MEAN CORPUSCULAR VOLUME 87.5 fl (80.0-96.0); MONO # 0.4 10^3/uL (0.0-0.8); NEUTROPHILS % 67.3 % (36.0-66.0); PLATELET COUNT, AUTOMATED 311 10^3/uL (150-450); RED BLOOD COUNT 5.29 10^6/uL (4.00-5.40)
[2022-06-28 15:32] LABS: LIPASE 39 U/L (12-53)
[2022-06-28 15:34] LABS: ALBUMIN 3.3 G/DL (3.2-5.2); ALKALINE PHOSPHATASE 129 U/L (46-116); ALT/SGPT < 9 U/L (7.0-40); AST/SGOT 23 U/L (<34); BILIRUBIN,DIRECT < 0.1 MG/DL (<0.4); BILIRUBIN,TOTAL 0.4 MG/DL (0.3-1.2); TOTAL PROTEIN 7.9 G/DL (5.7-8.2)
[2022-06-28] MEDS ORDERED: MORPHINE 2 MG/ML 1ML VIAL IV ONE (15:55)
[2022-06-28] MEDS ORDERED: NS 1,000 ML IV ONE (15:55)
[2022-06-28] MEDS ORDERED: ONDANSETRON 4MG 2ML VIAL IV ONE (16:20)
[2022-06-28] MEDS ORDERED: MORPHINE 4 MG/ML 1ML VIAL IV ONE (16:20)
[2022-06-28] MEDS: GASTROGRAFIN SOLUTION 30ML PO SCH ×2 (17:00→17:22)
[2022-06-28] MEDS ORDERED: DICYCLOMINE 10 MG CAP PO ONE (20:20)
[2022-06-28] MEDS ORDERED: PROM25TA12 PO (21:14)
[2022-06-28] MEDS ORDERED: DICY10CA13 PO (21:14)
[2022-06-28 21:27] VITALS: BP 163/94
[2022-06-29] MEDS ORDERED: DIVA250T67 PO (14:33)
[2022-06-29] MEDS ORDERED: TRUL0.5I SC (14:33)
[2022-06-29] MEDS ORDERED: ALPR0.5T3 PO (14:33)
== END 2022-06-28 22:11 | disposition home or self-care (01) ==
LOC: M ED 14:03
DX: R10.9 Unspecified abdominal pain (principal); R11.2 Nausea with vomiting, unspecified; N17.9 Acute kidney failure, unspecified; E86.0 Dehydration; E11.9 Type 2 diabetes mellitus without complications; I10 Essential (primary) hypertension; K21.9 Gastro-esophageal reflux disease without esophagitis; R56.9 Unspecified convulsions; E03.9 Hypothyroidism, unspecified; Z86.73 Personal history of transient ischemic attack (TIA), and cerebral infarction without residual deficits; Z79.4 Long term (current) use of insulin; Z79.899 Other long term (current) drug therapy; Z79.51 Long term (current) use of inhaled steroids; Z79.82 Long term (current) use of aspirin
CPT/HCPCS: 74176; 80047; 80076; 83690; 85025; 93005; 96374; 96375; 96376; 99284; J2405; Q9963

== ENCOUNTER 2022-06-29 12:04 | Observation (INO) | payer OTHER ==
[~2022-06-29] VITALS: Ht 165.1 cm; Wt 97.8 kg
[~2022-06-29 12:04] MED LIST changes: +DICY10CA13 PO; +PROM25TA12 PO
[2022-06-29] MEDS ORDERED: MORPHINE 4 MG/ML 1ML VIAL IV ONE (12:25)
[2022-06-29] MEDS ORDERED: METOCLOPRAMIDE INJ 10MG/2ML VIAL IV ONE (12:25)
[2022-06-29] MEDS ORDERED: HYDROMORPHONE HCL 0.5 MG/ 0.5 ML SYRINGE IV PRN (12:55)
[2022-06-29 13:12] LABS: ALBUMIN 3.7 G/DL (3.2-5.2); BILIRUBIN,DIRECT 0.1 MG/DL (<0.4); BILIRUBIN,TOTAL 0.5 MG/DL (0.3-1.2); CALCIUM LEVEL 11.4 MG/DL (8.5-10.1); CREATININE FOR GFR 1.8 MG/DL (0.55-1.30); GLOMERULAR FILTRATION RATE 31.6 (>51); POTASSIUM SERUM 4.4 MMOL/L (3.5-5.1); TOTAL PROTEIN 8.7 G/DL (5.7-8.2)
[2022-06-29 13:22] LABS: BASO # 0.1 10^3/uL (0.0-0.2); BASO % 1.3 % (0.0-1.0); EOS # 0.1 10^3/uL (0.0-0.5); EOS % 1.5 % (0.0-3.0); HEMATOCRIT 47.7 % (36.0-47.0); HEMOGLOBIN 15.9 g/dl (12.0-15.5); LYMPH # 1.9 10^3/uL (1.5-5.0); LYMPH % 24.8 % (24.0-44.0); MEAN CORPUSCULAR HEMOGLOBIN 29.2 pg (27.0-33.0); MEAN CORPUSCULAR HGB CONC 33.3 g/dl (32.0-36.5); MEAN CORPUSCULAR VOLUME 87.5 fl (80.0-96.0); MONO # 0.4 10^3/uL (0.0-0.8); MONO % 4.6 % (2.0-8.0); NEUTROPHILS # 5.1 10^3/uL (1.5-8.5); NEUTROPHILS % 67.3 % (36.0-66.0); PLATELET COUNT, AUTOMATED 324 10^3/uL (150-450); RED BLOOD COUNT 5.45 10^6/uL (4.00-5.40); WHITE BLOOD COUNT 7.6 10^3/uL (4.0-10.0)
[2022-06-29 13:26] LABS: RSV AMPLIFICATION NEGATIVE (NEGATIVE)
[2022-06-29] MEDS ORDERED: PANTOPRAZOLE 40MG VIAL IV ONE (13:45)
[2022-06-29] MEDS ORDERED: NS 1,000 ML IV ONE (13:45)
[2022-06-29] MEDS ORDERED: DIVA250T67 PO (14:33)
[2022-06-29] MEDS ORDERED: ALPR0.5T3 PO (14:33)
[2022-06-29] MEDS ORDERED: TRUL0.5I SC (14:33)
[2022-06-29] MEDS ORDERED: HOME MED LIST COMPLETE! XX SCH (14:40)
[2022-06-29] MEDS ORDERED: ALBUTEROL 90 MCG/ACT 8GM HFA INHALER INH PRN (15:30)
[2022-06-29] MEDS ORDERED: MORPHINE 2 MG/ML 1ML VIAL IV PRN (15:45)
[2022-06-29] MEDS ORDERED: ONDANSETRON 4MG 2ML VIAL IV PRN (15:45)
[2022-06-29] MEDS ORDERED: ACETAMINOPHEN TAB 650MG DOSE (2X325MG) PO PRN (16:05)
[2022-06-29] MEDS ORDERED: GLUCOSE 4GM CHEW TABLET PO PRN (16:05)
[2022-06-29] MEDS ORDERED: GLUCAGON INJ 1MG VIAL SC PRN (16:05)
[2022-06-29] MEDS ORDERED: DEXTROSE 50% 50ML SYRINGE IV PRN (16:05)
[2022-06-29] MEDS: NS 1,000 ML IV SCH (16:54)
[2022-06-29 16:59] VITALS: BP 156/86
[2022-06-29 17:06] LABS: PTH INTACT 208.3 PG/ML (18.5-88.0); TOTAL 25(OH) VITAMIN D 23.6 NG/ML (20.0-100.0)
[2022-06-29] MEDS ORDERED: GI COCKTAIL 50ML BTL(HYOSCYAMINE/MAALOX/LIDOCAINE VISCOUS)(1:3:1) PO ONE (18:00)
[2022-06-29] MEDS: SUCRALFATE 1 GM TAB PO SCH (18:19)
[2022-06-29] MEDS: ALPRAZolam 0.25 MG TAB PO SCH ×2 (18:20→21:42)
[2022-06-29] MEDS: INSULIN LISPRO (NovoLOG) PER UNIT SC SCH (18:20)
[2022-06-29] MEDS: GABAPENTIN 100 MG CAP PO SCH ×2 (18:20→21:43)
[2022-06-29] MEDS: ADVAIR HFA 115/21MCG INHALER INH SCH (19:43)
[2022-06-29 20:00] VITALS: BP 125/78
[2022-06-29] MEDS ORDERED: traZODone 100 MG TAB PO SCH (21:00)
[2022-06-29] MEDS ORDERED: INSULIN LISPRO (NovoLOG) PER UNIT SC SCH (21:00)
[2022-06-29] MEDS ORDERED: LEVEMIR (INSULIN DETEMIR) 1 UNITS/0.01ML SC SCH (21:00)
[2022-06-29] MEDS ORDERED: ATORVASTATIN 20 MG TAB PO SCH (21:00)
[2022-06-29] MEDS: HEPARIN SOD (PORCINE) 5000UNITS/ML 1ML VIAL/SYRINGE SC SCH (21:40)
[2022-06-29] MEDS: PANTOPRAZOLE 40MG VIAL IV SCH (21:40)
[2022-06-29] MEDS: hydrALAZINE 20MG/ML 1ML VIAL IV SCH (21:41)
[2022-06-29] MEDS: busPIRone 10 MG TAB PO SCH (21:42)
[2022-06-29] MEDS: DIVALPROEX 250MG TAB PO SCH (21:43)
[2022-06-30] VITALS: BP 124/78
[2022-06-30] MEDS: SUCRALFATE 1 GM TAB PO SCH ×3 (00:52→11:12)
[2022-06-30] MEDS: NS 1,000 ML IV SCH ×2 (01:33→11:08)
[2022-06-30 04:00] VITALS: BP 159/87
[2022-06-30 05:50] VITALS: BP 159/83
[2022-06-30 06:00] VITALS: BP 154/80
[2022-06-30] MEDS ORDERED: LEVOTHYROXINE 150MCG TABLET (0.15MG) PO SCH (06:00)
[2022-06-30] MEDS: hydrALAZINE 20MG/ML 1ML VIAL IV SCH (06:00)
[2022-06-30 06:12] LABS: BASO # 0.1 10^3/uL (0.0-0.2); EOS # 0.1 10^3/uL (0.0-0.5); EOS % 1.5 % (0.0-3.0); HEMATOCRIT 37.5 % (36.0-47.0); LYMPH # 2.3 10^3/uL (1.5-5.0); LYMPH % 34.3 % (24.0-44.0); MEAN CORPUSCULAR HEMOGLOBIN 29.3 pg (27.0-33.0); MEAN CORPUSCULAR VOLUME 91.7 fl (80.0-96.0); MONO # 0.4 10^3/uL (0.0-0.8); MONO % 5.9 % (2.0-8.0); NEUTROPHILS # 3.8 10^3/uL (1.5-8.5); PLATELET COUNT, AUTOMATED 228 10^3/uL (150-450); RED BLOOD COUNT 4.09 10^6/uL (4.00-5.40); WHITE BLOOD COUNT 6.7 10^3/uL (4.0-10.0)
[2022-06-30] MEDS: HEPARIN SOD (PORCINE) 5000UNITS/ML 1ML VIAL/SYRINGE SC SCH (06:23)
[2022-06-30 06:42] LABS: ALBUMIN 2.5 G/DL (3.2-5.2); BILIRUBIN,TOTAL 0.2 MG/DL (0.3-1.2); CALCIUM LEVEL 9.3 MG/DL (8.5-10.1); CREATININE FOR GFR 1.65 MG/DL (0.55-1.30); GLOMERULAR FILTRATION RATE 34.9 (>51); MAGNESIUM LEVEL 2.1 MG/DL (1.8-2.4); POTASSIUM SERUM 4.1 MMOL/L (3.5-5.1)
[2022-06-30] MEDS: ADVAIR HFA 115/21MCG INHALER INH SCH (07:26)
[2022-06-30] MEDS: INSULIN LISPRO (NovoLOG) PER UNIT SC SCH ×2 (07:30→12:00)
[2022-06-30 08:07] LABS: CREATININE,RANDOM URINE 135.4 MG/DL
[2022-06-30] MEDS: ALPRAZolam 0.25 MG TAB PO SCH (08:14)
[2022-06-30] MEDS: GABAPENTIN 100 MG CAP PO SCH (08:14)
[2022-06-30] MEDS: busPIRone 10 MG TAB PO SCH (08:14)
[2022-06-30] MEDS: PANTOPRAZOLE 40MG VIAL IV SCH (08:15)
[2022-06-30] MEDS: DIVALPROEX 250MG TAB PO SCH (08:15)
[2022-06-30] MEDS ORDERED: ASPIRIN 81MG ENTERIC TABLET PO SCH (09:00)
[2022-06-30] MEDS ORDERED: SERTRALINE HCL 50 MG TAB PO SCH (09:00)
[2022-06-30] MEDS ORDERED: VITAMIN D 1,000 INTERNATIONAL UNITS TABLET PO SCH (09:00)
[2022-06-30] MEDS ORDERED: FLUTICASONE PROP 0.05% NASAL SPRAY 16 GM (FLONASE) SCH (09:00)
[2022-06-30 11:00] LABS: PHOSPHORUS LEVEL 2.9 MG/DL (2.5-4.9)
[2022-06-30 11:34] VITALS: BP 132/70
[2022-06-30] MEDS ORDERED: SUCR1TA PO (12:14)
[2022-06-30] MEDS ORDERED: PANT40TA29 PO (12:14)
[2022-07-01] MEDS ORDERED: VITAMIN D 1,000 INTERNATIONAL UNITS TABLET PO SCH (09:00)
== END 2022-06-30 16:03 | disposition home or self-care (01) ==
LOC: M ED 12:04 → M ED INP 15:02 → ENRESERV 15:27 → M PCU 16:36
PROVIDERS: ADMIT Internal Medicine; ATTEND Internal Medicine
DX: R10.9 Unspecified abdominal pain (principal); R11.2 Nausea with vomiting, unspecified; I16.0 Hypertensive urgency; N17.9 Acute kidney failure, unspecified; E83.52 Hypercalcemia; E11.42 Type 2 diabetes mellitus with diabetic polyneuropathy; J45.909 Unspecified asthma, uncomplicated; E04.1 Nontoxic single thyroid nodule; F41.9 Anxiety disorder, unspecified; F32.A Depression, unspecified; G47.00 Insomnia, unspecified; F31.9 Bipolar disorder, unspecified; K21.9 Gastro-esophageal reflux disease without esophagitis; G47.33 Obstructive sleep apnea (adult) (pediatric); Z86.73 Personal history of transient ischemic attack (TIA), and cerebral infarction without residual deficits; Z88.8 Allergy status to other drugs, medicaments and biological substances; Z79.899 Other long term (current) drug therapy; Z79.82 Long term (current) use of aspirin; Z79.84 Long term (current) use of oral hypoglycemic drugs; Z79.890 Hormone replacement therapy; Z79.4 Long term (current) use of insulin; Z79.51 Long term (current) use of inhaled steroids
CPT/HCPCS: 36415; 74021; 76536; 76775; 80048; 80053; 80076; 81001; 82306; 82570; 83519; 83605; 83615; 83690; 83735; 83970; 84100; 84145; 84300; 85025; 86140; 87040; 87631; 93005; 93041; 94640; 96361; 96372; 96374; 96375; 96376; 99285; C9113; J1170; J1815; J2405; J2765

== ENCOUNTER 2022-09-24 18:33 | Emergency (ER) | payer OTHER ==
[~2022-09-24] VITALS: Ht 165.1 cm; Wt 96.5 kg
[~2022-09-24 18:33] MED LIST changes: +ALPR0.5T3 PO; +DICY-61 PO; -DICY10CA13 PO; +DIVA250T67 PO; +PANT40TA29 PO; +SUCR1TA PO
[2022-09-24 18:35] VITALS: BP 161/90; TEMP 98.2; O2SAT 95
== END 2022-09-24 21:01 | disposition left against medical advice (07) ==
LOC: M ED 18:33
DX: S69.92XA Unspecified injury of left wrist, hand and finger(s), initial encounter (principal); X58.XXXA Exposure to other specified factors, initial encounter; Y92.89 Other specified places as the place of occurrence of the external cause; Y93.89 Activity, other specified; Y99.8 Other external cause status; Z53.21 Procedure and treatment not carried out due to patient leaving prior to being seen by health care provider

== ENCOUNTER → 2022-10-13 | Outpatient (REF) | payer OTHER ==
[~2022-10-13] MED LIST changes: +VITA200032 PO
[2022-10-13 17:59] LABS: BASO # 0.1 10^3/uL (0.0-0.2); BASO % 0.7 % (0.0-1.0); EOS # 0.1 10^3/uL (0.0-0.5); HEMATOCRIT 41.8 % (36.0-47.0); HEMOGLOBIN 13.9 g/dl (12.0-15.5); LYMPH # 1.9 10^3/uL (1.5-5.0); LYMPH % 27.1 % (24.0-44.0); MEAN CORPUSCULAR HEMOGLOBIN 30.8 pg (27.0-33.0); MEAN CORPUSCULAR HGB CONC 33.3 g/dl (32.0-36.5); MEAN CORPUSCULAR VOLUME 92.5 fl (80.0-96.0); MONO # 0.4 10^3/uL (0.0-0.8); MONO % 5.2 % (2.0-8.0); NEUTROPHILS # 4.6 10^3/uL (1.5-8.5); NEUTROPHILS % 65.7 % (36.0-66.0); PLATELET COUNT, AUTOMATED 263 10^3/uL (150-450); RED BLOOD COUNT 4.52 10^6/uL (4.00-5.40); WHITE BLOOD COUNT 6.9 10^3/uL (4.0-10.0)
[2022-10-13 18:23] LABS: ALBUMIN 3.2 G/DL (3.2-5.2); BILIRUBIN,TOTAL 0.3 MG/DL (0.3-1.2); CALCIUM LEVEL 10.6 MG/DL (8.5-10.1); CHOLESTEROL RISK RATIO 7.08 (<5); CREATININE FOR GFR 2.05 MG/DL (0.55-1.30); GLOMERULAR FILTRATION RATE 27.2 (>51); HDL CHOLESTEROL 36.7 MG/DL (>40); LDL CHOLESTEROL 170.1 MG/DL (<100); NON-HDL-C 223.3 MG/DL; PHOSPHORUS LEVEL 3.6 MG/DL (2.5-4.9); POTASSIUM SERUM 4.6 MMOL/L (3.5-5.1); TOTAL PROTEIN 7.3 G/DL (5.7-8.2)
[2022-10-13 18:25] LABS: THYROID STIMULATING HORMONE 10.624 uIU/ML (0.55-4.78)
[2022-10-13 18:45] LABS: HEMOGLOBIN A1c 6.6 % (4.0-6.0)
== END ==
LOC: M LAB REF 16:10
PROVIDERS: ATTEND Pediatrics
DX: E11.69 Type 2 diabetes mellitus with other specified complication (principal); E21.3 Hyperparathyroidism, unspecified; E78.5 Hyperlipidemia, unspecified; E03.9 Hypothyroidism, unspecified

== ENCOUNTER → 2022-10-16 | Outpatient (REF) | payer OTHER ==
[2022-10-16 21:36] LABS: CREATININE, URINE 161.3 MG/DL
[2022-10-16 21:48] LABS: MAU/CREAT RATIO 290.1 MCG/MG (0.0-30.0)
== END ==
LOC: M LAB REF 20:48
PROVIDERS: ATTEND Pediatrics
DX: E11.69 Type 2 diabetes mellitus with other specified complication (principal); R30.9 Painful micturition, unspecified

== ENCOUNTER 2023-05-03 09:34 | Emergency (ER) | payer OTHER ==
[~2023-05-03] VITALS: Ht 165.1 cm; Wt 94.5 kg
[~2023-05-03 09:34] MED LIST changes: -OXYB5TAB10 PO; +OXYB5TAB14 PO
[2023-05-03 10:31] LABS: BASO # 0.1 10^3/uL (0.0-0.2); EOS # 0.6 10^3/uL (0.0-0.5); EOS % 5.3 % (0.0-3.0); HEMATOCRIT 44.4 % (36.0-47.0); HEMOGLOBIN 15.1 g/dl (12.0-15.5); LYMPH # 2.2 10^3/uL (1.5-5.0); LYMPH % 19.9 % (24.0-44.0); MEAN CORPUSCULAR HEMOGLOBIN 31.5 pg (27.0-33.0); MEAN CORPUSCULAR VOLUME 92.5 fl (80.0-96.0); MONO # 0.4 10^3/uL (0.0-0.8); MONO % 3.1 % (2.0-8.0); NEUTROPHILS # 7.9 10^3/uL (1.5-8.5); NEUTROPHILS % 70.3 % (36.0-66.0); WHITE BLOOD COUNT 11.2 10^3/uL (4.0-10.0)
[2023-05-03 10:55] LABS: BILIRUBIN,DIRECT 0.1 MG/DL (<0.4); BILIRUBIN,TOTAL 0.4 MG/DL (0.3-1.2); CALCIUM LEVEL 10.9 MG/DL (8.5-10.1); CREATININE FOR GFR 1.53 MG/DL (0.55-1.30); GLOMERULAR FILTRATION RATE 38.1 (>51); POTASSIUM SERUM 4.3 MMOL/L (3.5-5.1); TOTAL PROTEIN 7.8 G/DL (5.7-8.2)
[2023-05-03] MEDS ORDERED: ISOVUE-370 76% 100ML VIAL As Ordered ONE (12:11)
[2023-05-03] MEDS: ONDANSETRON 4MG 2ML VIAL IV ONE (12:19)
[2023-05-03] MEDS: PANTOPRAZOLE 40MG VIAL IV ONE (12:20)
[2023-05-03] MEDS: MORPHINE 4 MG/ML 1ML VIAL IV ONE (12:21)
[2023-05-03 12:39] LABS: RSV AMPLIFICATION NEGATIVE (NEGATIVE)
[2023-05-03] MEDS: NS 1,000 ML IV ONE (12:49)
[2023-05-03 13:00] LABS: CK-MB VALUE MASS 3.1 NG/ML (<3.6)
[2023-05-03 13:04] LABS: MB/CK RELATIVE INDEX 2.27 (< OR =4)
[2023-05-03 13:17] LABS: INR 1.02; PROTHROMBIN TIME 13.1 SECONDS (12.5-14.5)
[2023-05-03] MEDS: METOPROLOL 5 MG/5 ML VIAL IV PRN (13:39)
[2023-05-03 13:45] VITALS: BP 223/120
[2023-05-03] MEDS: hydrALAZINE 20MG/ML 1ML VIAL IV ONE (14:03)
[2023-05-03] MEDS: fentaNYL 100 MCG/2 ML INJECTION IV ONE (14:04)
[2023-05-03 14:10] LABS: CK-MB VALUE MASS 3.7 NG/ML (<3.6)
[2023-05-03 14:20] LABS: MB/CK RELATIVE INDEX 2.06 (< OR =4)
[2023-05-03] MEDS ORDERED: SYMB16INH INH (14:42)
[2023-05-03] MEDS ORDERED: GABA600T4 PO (14:42)
[2023-05-03] MEDS ORDERED: HOME MED LIST COMPLETE! XX SCH (14:45)
[2023-05-03 14:49] VITALS: TEMP 97.3
[2023-05-03] MEDS ORDERED: LEVO150T7 PO (15:11)
[2023-05-03] MEDS ORDERED: CARA1TAB6 PO (15:11)
[2023-05-03] MEDS ORDERED: LISI40TA4 PO (15:11)
[2023-05-03] MEDS ORDERED: PROT1TAB2 PO (15:11)
[2023-05-03] MEDS ORDERED: AMLO1TAB25 PO (15:11)
[2023-05-03 15:15] VITALS: BP 151/76; O2SAT 98
[2023-05-04] MEDS ORDERED: ZOLO100T PO (15:00)
[2023-05-04] MEDS ORDERED: VENTAER INH (15:00)
[2023-05-04] MEDS ORDERED: PANT40TA29 PO (15:00)
[2023-05-04] MEDS ORDERED: SUCR1TA PO (15:07)
[2023-05-12] MEDS ORDERED: ATOR40TA75 PO (10:31)
[2023-05-12] MEDS ORDERED: SYMB16INH INH (17:44)
[2023-05-12] MEDS ORDERED: ZOLO100T PO (17:44)
[2023-05-12] MEDS ORDERED: LEVO150T7 PO (17:44)
[2023-05-12] MEDS ORDERED: TRAZ-257 PO (17:44)
[2023-05-12] MEDS ORDERED: SUCR1TA PO (17:44)
[2023-05-12] MEDS ORDERED: DEPA250T32 PO (17:44)
[2023-05-12] MEDS ORDERED: AMLO1TAB25 PO (17:44)
[2023-05-12] MEDS ORDERED: ALPR0.5T3 PO (17:44)
[2023-05-12] MEDS ORDERED: BUSP10TA PO (17:44)
== END 2023-05-03 15:27 | disposition home or self-care (01) ==
LOC: M ED 09:34 → EDBD 09:34 → M ED 15:27
DX: K29.70 Gastritis, unspecified, without bleeding (principal); K20.90 Esophagitis, unspecified without bleeding; N32.9 Bladder disorder, unspecified; E11.9 Type 2 diabetes mellitus without complications; I12.9 Hypertensive chronic kidney disease with stage 1 through stage 4 chronic kidney disease, or unspecified chronic kidney disease; K21.9 Gastro-esophageal reflux disease without esophagitis; J45.909 Unspecified asthma, uncomplicated; E03.9 Hypothyroidism, unspecified; M54.9 Dorsalgia, unspecified; F03.90 Unspecified dementia, unspecified severity, without behavioral disturbance, psychotic disturbance, mood disturbance, and anxiety; F17.200 Nicotine dependence, unspecified, uncomplicated; Z79.4 Long term (current) use of insulin; Z79.82 Long term (current) use of aspirin; Z79.899 Other long term (current) drug therapy

== ENCOUNTER 2023-06-09 09:49 | Emergency (ER) | payer MEDICAID, OTHER ==
[~2023-06-09] VITALS: Ht 165.1 cm; Wt 79.9 kg
[~2023-06-09 09:49] MED LIST changes: +ATOR40TA75 PO; +BUSP10TA PO; +CARA1TAB6 PO; +DEPA250T32 PO; +GABA600T4 PO; +LEVO150T7 PO; +PROT1TAB2 PO; +SYMB16INH INH; +TRAZ-257 PO; +VENTAER INH; +ZOLO100T PO
[2023-06-09] MEDS: ONDANSETRON 4MG 2ML VIAL IV ONE ×2 (10:10→12:25)
[2023-06-09] MEDS: NS 500 ML IV ONE ×2 (10:10→13:16)
[2023-06-09 10:32] LABS: BASO # 0.1 10^3/uL (0.0-0.2); EOS # 0.2 10^3/uL (0.0-0.5); EOS % 2.6 % (0.0-3.0); HEMATOCRIT 40.5 % (36.0-47.0); HEMOGLOBIN 14.4 g/dl (12.0-15.5); LYMPH % 23.5 % (24.0-44.0); MEAN CORPUSCULAR HEMOGLOBIN 31.9 pg (27.0-33.0); MEAN CORPUSCULAR HGB CONC 35.6 g/dl (32.0-36.5); MEAN CORPUSCULAR VOLUME 89.8 fl (80.0-96.0); MONO # 0.4 10^3/uL (0.0-0.8); MONO % 4.2 % (2.0-8.0); NEUTROPHILS # 5.8 10^3/uL (1.5-8.5); NEUTROPHILS % 68.5 % (36.0-66.0); PLATELET COUNT, AUTOMATED 319 10^3/uL (150-450); RED BLOOD COUNT 4.51 10^6/uL (4.00-5.40); WHITE BLOOD COUNT 8.4 10^3/uL (4.0-10.0)
[2023-06-09] MEDS: MORPHINE 4 MG/ML 1ML VIAL IV ONE ×2 (10:48→12:25)
[2023-06-09 11:00] LABS: ALBUMIN 2.7 G/DL (3.2-5.2); BILIRUBIN,DIRECT 0.2 MG/DL (<0.4); BILIRUBIN,TOTAL 0.7 MG/DL (0.3-1.2); CALCIUM LEVEL 12.4 MG/DL (8.5-10.1); CREATININE FOR GFR 1.27 MG/DL (0.55-1.30); GLOMERULAR FILTRATION RATE 47.2 (>51); POTASSIUM SERUM 4.1 MMOL/L (3.5-5.1); TOTAL PROTEIN 7.1 G/DL (5.7-8.2)
[2023-06-09 11:03] LABS: RSV AMPLIFICATION NEGATIVE (NEGATIVE)
[2023-06-09] MEDS ORDERED: ISOVUE-370 76% 100ML VIAL As Ordered ONE (11:10)
[2023-06-09] MEDS: METOCLOPRAMIDE INJ 10MG/2ML VIAL IV ONE (13:16)
[2023-06-09 14:01] VITALS: BP 150/95; TEMP 97.8; O2SAT 98
[2023-06-09] MEDS ORDERED: ONDA4TAB6 PO (14:01)
[2023-06-09] MEDS ORDERED: REGL10TA6 PO (14:01)
== END 2023-06-09 14:15 | disposition home or self-care (01) ==
LOC: M ED 09:49
DX: K42.9 Umbilical hernia without obstruction or gangrene (principal); R31.9 Hematuria, unspecified; N32.9 Bladder disorder, unspecified; E11.9 Type 2 diabetes mellitus without complications; I10 Essential (primary) hypertension; Z86.73 Personal history of transient ischemic attack (TIA), and cerebral infarction without residual deficits; Z87.19 Personal history of other diseases of the digestive system; Z79.82 Long term (current) use of aspirin; Z79.899 Other long term (current) drug therapy
CPT/HCPCS: 74177; 80048; 80076; 81001; 83690; 85025; 87631; 96361; 96374; 96375; 96376; 99284; J2405; J2765; Q9967

== ENCOUNTER 2023-06-15 04:17 | Observation (INO) | payer OTHER ==
[~2023-06-15] VITALS: Ht 162.6 cm; Wt 81.8 kg
[2023-06-15] VITALS (11 sets, daily range): BP systolic 140–181; BP diastolic 77–100; TEMP 97.2–97.8; O2SAT 93–99
[~2023-06-15 04:17] MED LIST changes: +ONDA4TAB6 PO
[2023-06-15 05:11] LABS: BASO # 0.1 10^3/uL (0.0-0.2); BASO % 0.9 % (0.0-1.0); EOS # 0.1 10^3/uL (0.0-0.5); EOS % 1.7 % (0.0-3.0); HEMATOCRIT 37.5 % (36.0-47.0); HEMOGLOBIN 13.1 g/dl (12.0-15.5); LYMPH # 1.6 10^3/uL (1.5-5.0); LYMPH % 24.7 % (24.0-44.0); MEAN CORPUSCULAR HEMOGLOBIN 31.6 pg (27.0-33.0); MEAN CORPUSCULAR HGB CONC 34.9 g/dl (32.0-36.5); MEAN CORPUSCULAR VOLUME 90.4 fl (80.0-96.0); MONO # 0.3 10^3/uL (0.0-0.8); NEUTROPHILS # 4.5 10^3/uL (1.5-8.5); NEUTROPHILS % 67.4 % (36.0-66.0); PLATELET COUNT, AUTOMATED 249 10^3/uL (150-450); RED BLOOD COUNT 4.15 10^6/uL (4.00-5.40); WHITE BLOOD COUNT 6.7 10^3/uL (4.0-10.0)
[2023-06-15] MEDS: NS 1,000 ML IV SCH ×2 (05:12→13:53)
[2023-06-15] MEDS: ONDANSETRON 4MG 2ML VIAL IV ONE (05:12)
[2023-06-15] MEDS: MORPHINE 4 MG/ML 1ML VIAL IV ONE (05:12)
[2023-06-15] MEDS: GASTROGRAFIN SOLUTION 30ML PO SCH (05:26)
[2023-06-15 05:39] LABS: ALBUMIN 2.4 G/DL (3.2-5.2); BILIRUBIN,DIRECT 0.1 MG/DL (<0.4); BILIRUBIN,TOTAL 0.4 MG/DL (0.3-1.2); CALCIUM LEVEL 11.6 MG/DL (8.5-10.1); CK-MB VALUE MASS 2.6 NG/ML (<3.6); CREATININE FOR GFR 1.34 MG/DL (0.55-1.30); GLOMERULAR FILTRATION RATE 44.2 (>51); MB/CK RELATIVE INDEX 2.08 (< OR =4); POTASSIUM SERUM 3.2 MMOL/L (3.5-5.1); TOTAL PROTEIN 6.2 G/DL (5.7-8.2)
[2023-06-15] MEDS ORDERED: ISOVUE-370 76% 100ML VIAL As Ordered ONE (05:49)
[2023-06-15] MEDS: POTASSIUM CHLORIDE 10MEQ SR TABLET PO ONE (06:15)
[2023-06-15] MEDS: LABETALOL 100MG/20ML VIAL IV STA (06:29)
[2023-06-15 06:48] LABS: CK-MB VALUE MASS 2.5 NG/ML (<3.6)
[2023-06-15 07:01] LABS: MB/CK RELATIVE INDEX 2.38 (< OR =4)
[2023-06-15] MEDS: MORPHINE 4 MG/ML 1ML VIAL IV PRN (09:33)
[2023-06-15] MEDS ORDERED: GLUCAGON INJ 1MG VIAL SC PRN ×2 (10:15→11:30)
[2023-06-15] MEDS ORDERED: GLUCOSE 4GM CHEW TABLET PO PRN ×2 (10:15→11:30)
[2023-06-15] MEDS ORDERED: DEXTROSE 50% 50ML SYRINGE IV PRN ×2 (10:15→11:30)
[2023-06-15] MEDS ORDERED: ACETAMINOPHEN TAB 650MG DOSE (2X325MG) PO PRN (10:15)
[2023-06-15] MEDS ORDERED: ATOR40TA75 PO (10:57)
[2023-06-15 10:59] LABS: AMPHETAMINES LEVEL URINE NEGATIVE (NEGATIVE); BARBITURATES URINE NEGATIVE (NEGATIVE); BENZODIAZEPINES URINE NEGATIVE (NEGATIVE); COCAINE METABOLITE URINE NEGATIVE (NEGATIVE); METHADONE URINE NEGATIVE (NEGATIVE)
[2023-06-15 11:00] LABS: PHENCYCLIDINE URINE NEGATIVE (NEGATIVE)
[2023-06-15] MEDS ORDERED: LEVO150T7 PO (11:03)
[2023-06-15] MEDS ORDERED: METO10TA2 PO (11:03)
[2023-06-15] MEDS ORDERED: ZOLO100T PO (11:03)
[2023-06-15] MEDS ORDERED: BUSP10TA PO (11:03)
[2023-06-15] MEDS ORDERED: HOME MED LIST COMPLETE! XX SCH (11:05)
[2023-06-15 11:11] LABS: CANNABINOIDS URINE POSITIVE (NEGATIVE); OPIATES URINE POSITIVE (NEGATIVE)
[2023-06-15] MEDS ORDERED: INSULIN LISPRO (NovoLOG) PER UNIT SC SCH (12:00)
[2023-06-15] MEDS: INSULIN LISPRO (NovoLOG) PER UNIT SC SCH ×2 (12:00→20:21)
[2023-06-15] MEDS: PANTOPRAZOLE 40MG VIAL IV SCH (13:52)
[2023-06-15] MEDS: SUCRALFATE 1 GM TAB PO SCH (13:52)
[2023-06-15] MEDS: busPIRone 10 MG TAB PO SCH (13:53)
[2023-06-15] MEDS: PERCOCET 5MG/325MG TAB PO PRN ×2 (13:54→18:51)
[2023-06-15] MEDS: HEPARIN SOD (PORCINE) 5000UNITS/ML 1ML VIAL/SYRINGE SC SCH (14:00)
[2023-06-15] MEDS: GABAPENTIN 300 MG CAP PO SCH (18:01)
[2023-06-15] MEDS: ONDANSETRON 4MG 2ML VIAL IV PRN (18:01)
[2023-06-15] MEDS: SYMBICORT 160/4.5MCG INHALER 6GM INH SCH (19:46)
[2023-06-15] MEDS: SERTRALINE 100 MG TAB PO SCH (20:35)
[2023-06-15] MEDS: hydrALAZINE 20MG/ML 1ML VIAL IV PRN (20:36)
[2023-06-15] MEDS: DIVALPROEX 250MG TAB PO SCH (20:36)
[2023-06-15] MEDS: ALPRAZolam 0.5 MG TAB PO PRN (20:37)
[2023-06-15] MEDS: traZODone 25MG PER 1/2 TABLET PO ONE (23:36)
[2023-06-16] VITALS (9 sets, daily range): BP systolic 144–168; BP diastolic 80–100; TEMP 97.2–97.5; O2SAT 92–97
[2023-06-16] MEDS: LEVOTHYROXINE 150MCG TABLET (0.15MG) PO SCH (06:12)
[2023-06-16] MEDS ORDERED: ALBUTEROL SULFATE 2.5MG/0.5ML INH NEB SOLN INH PRN (07:50)
[2023-06-16] MEDS: FLUTICASONE PROP 0.05% NASAL SPRAY 16 GM (FLONASE) SCH (07:54)
[2023-06-16] MEDS: ASPIRIN 81MG ENTERIC TABLET PO SCH (07:54)
[2023-06-16] MEDS: ATORVASTATIN 20 MG TAB PO SCH (07:55)
[2023-06-16 08:13] LABS: BASO # 0.1 10^3/uL (0.0-0.2); EOS # 0.5 10^3/uL (0.0-0.5); EOS % 7.7 % (0.0-3.0); HEMATOCRIT 37.5 % (36.0-47.0); HEMOGLOBIN 12.7 g/dl (12.0-15.5); LYMPH # 2.5 10^3/uL (1.5-5.0); MEAN CORPUSCULAR HGB CONC 33.9 g/dl (32.0-36.5); MEAN CORPUSCULAR VOLUME 94.5 fl (80.0-96.0); MONO # 0.3 10^3/uL (0.0-0.8); MONO % 4.7 % (2.0-8.0); NEUTROPHILS # 3.3 10^3/uL (1.5-8.5); NEUTROPHILS % 49.3 % (36.0-66.0); PLATELET COUNT, AUTOMATED 203 10^3/uL (150-450); RED BLOOD COUNT 3.97 10^6/uL (4.00-5.40); WHITE BLOOD COUNT 6.8 10^3/uL (4.0-10.0)
[2023-06-16] MEDS: ALBUTEROL SULFATE 2.5MG/0.5ML INH NEB SOLN INH SCH (08:24)
[2023-06-16 08:41] LABS: ALBUMIN 2.2 G/DL (3.2-5.2); BILIRUBIN,TOTAL 0.3 MG/DL (0.3-1.2); CALCIUM LEVEL 10.8 MG/DL (8.5-10.1); CREATININE FOR GFR 1.15 MG/DL (0.55-1.30); GLOMERULAR FILTRATION RATE 52.8 (>51); MAGNESIUM LEVEL 1.7 MG/DL (1.8-2.4); POTASSIUM SERUM 3.8 MMOL/L (3.5-5.1); TOTAL PROTEIN 5.6 G/DL (5.7-8.2)
[2023-06-16] MEDS ORDERED: SUCR1TA PO ×2 (09:38→10:57)
[2023-06-16] MEDS ORDERED: OXYC1TAB23 PO ×2 (09:38→10:14)
[2023-06-16] MEDS ORDERED: PROT1TAB2 PO ×2 (09:38→10:57)
[2023-06-16] MEDS: MAG SULF 1GM/100ML (MAG RUN) 1 GM in IV 1 EA IV ONE (10:13)
[2023-06-16] MEDS ORDERED: NEBU1EAC78 MC (11:35)
[2023-06-16] MEDS ORDERED: ALB2.5NEB NEB (11:35)
== END 2023-06-16 11:50 | disposition home or self-care (01) ==
LOC: EDBD 04:17 → M ED 04:17 → M ED INP 10:41 → M PCU 15:50
PROVIDERS: ADMIT Internal Medicine; ATTEND Internal Medicine
DX: R10.9 Unspecified abdominal pain (principal); R11.2 Nausea with vomiting, unspecified; I12.9 Hypertensive chronic kidney disease with stage 1 through stage 4 chronic kidney disease, or unspecified chronic kidney disease; E87.6 Hypokalemia; N18.30 Chronic kidney disease, stage 3 unspecified; E21.0 Primary hyperparathyroidism; R79.89 Other specified abnormal findings of blood chemistry; R82.71 Bacteriuria; E11.22 Type 2 diabetes mellitus with diabetic chronic kidney disease; N32.89 Other specified disorders of bladder; J44.9 Chronic obstructive pulmonary disease, unspecified; J45.909 Unspecified asthma, uncomplicated; G43.909 Migraine, unspecified, not intractable, without status migrainosus; I69.351 Hemiplegia and hemiparesis following cerebral infarction affecting right dominant side; G62.9 Polyneuropathy, unspecified; E03.9 Hypothyroidism, unspecified; F31.9 Bipolar disorder, unspecified; F32.A Depression, unspecified; R63.4 Abnormal weight loss; R63.0 Anorexia; R53.1 Weakness; R06.02 Shortness of breath; M25.50 Pain in unspecified joint; M79.10 Myalgia, unspecified site; Z79.899 Other long term (current) drug therapy; Z79.82 Long term (current) use of aspirin; Z79.51 Long term (current) use of inhaled steroids; Z90.49 Acquired absence of other specified parts of digestive tract; Z87.19 Personal history of other diseases of the digestive system; Z87.81 Personal history of (healed) traumatic fracture; F17.210 Nicotine dependence, cigarettes, uncomplicated; Z80.9 Family history of malignant neoplasm, unspecified
CPT/HCPCS: 71275; 74177; 80048; 80053; 80076; 80307; 81001; 82550; 82553; 83605; 83690; 83735; 85025; 93005; 93041; 94640; 96372; 96374; 96375; 96376; 99285; C9113; J0360; J1815; J2405; J3475; Q9963; Q9967

== ENCOUNTER 2023-07-16 02:46 | Inpatient (IN) | payer OTHER ==
[~2023-07-16] VITALS: Ht 165.1 cm; Wt 85.0 kg
[~2023-07-16 02:46] MED LIST changes: +ALB2.5NEB NEB; +METO10TA2 PO; +NEBU1EAC78 MC; +ONDA-282 PO; -ONDA4TAB6 PO; +OXYC1TAB23 PO
[2023-07-16 03:35] LABS: BASO % 0.6 % (0.0-1.0); EOS % 0.6 % (0.0-3.0); HEMOGLOBIN 11.4 g/dl (12.0-15.5); LYMPH # 1.8 10^3/uL (1.5-5.0); LYMPH % 27.1 % (24.0-44.0); MEAN CORPUSCULAR HEMOGLOBIN 31.5 pg (27.0-33.0); MEAN CORPUSCULAR HGB CONC 35.6 g/dl (32.0-36.5); MEAN CORPUSCULAR VOLUME 88.4 fl (80.0-96.0); MONO # 0.3 10^3/uL (0.0-0.8); MONO % 4.3 % (2.0-8.0); NEUTROPHILS # 4.5 10^3/uL (1.5-8.5); NEUTROPHILS % 67.1 % (36.0-66.0); PLATELET COUNT, AUTOMATED 222 10^3/uL (150-450); RED BLOOD COUNT 3.62 10^6/uL (4.00-5.40); WHITE BLOOD COUNT 6.7 10^3/uL (4.0-10.0)
[2023-07-16 04:01] LABS: CK-MB VALUE MASS 1.6 NG/ML (<3.6)
[2023-07-16 04:07] LABS: ALBUMIN 2.1 G/DL (3.2-5.2); BILIRUBIN,DIRECT 0.2 MG/DL (<0.4); BILIRUBIN,TOTAL 0.4 MG/DL (0.3-1.2); CALCIUM LEVEL 10.2 MG/DL (8.5-10.1); CREATININE FOR GFR 1.45 MG/DL (0.55-1.30); GLOMERULAR FILTRATION RATE 40.4 (>51); MB/CK RELATIVE INDEX 0.94 (< OR =4); POTASSIUM SERUM 2.7 MMOL/L (3.5-5.1); TOTAL PROTEIN 5.3 G/DL (5.7-8.2)
[2023-07-16 04:25] LABS: MAGNESIUM LEVEL 1.3 MG/DL (1.8-2.4)
[2023-07-16] MEDS: ONDANSETRON 4MG 2ML VIAL IV ONE (04:38)
[2023-07-16] MEDS: MORPHINE 4 MG/ML 1ML VIAL IV PRN (04:38)
[2023-07-16] MEDS ORDERED: ISOVUE-370 76% 100ML VIAL As Ordered ONE (04:40)
[2023-07-16] MEDS ORDERED: KCL 20MEQ IN 100ML SWI (KRUN) 20 MEQ in IV 1 EA IV ONE (06:20)
[2023-07-16] MEDS: MORPHINE 4 MG/ML 1ML VIAL IV ONE (06:27)
[2023-07-16] MEDS: LR 1,000 ML IV ONE (06:27)
[2023-07-16] MEDS: PANTOPRAZOLE 40MG VIAL IV ONE (06:27)
[2023-07-16] MEDS: SUCRALFATE 1 GM TAB PO ONE (06:28)
[2023-07-16] MEDS: KCL 10MEQ/100ML SWI (KRUN) IV SCH (07:08)
[2023-07-16] MEDS ORDERED: SUCRALFATE SUSP 1GM/10ML UD PO SCH (07:30)
[2023-07-16] MEDS ORDERED: DEXTROSE 50% 50ML SYRINGE IV PRN (07:40)
[2023-07-16] MEDS ORDERED: GLUCAGON INJ 1MG VIAL SC PRN (07:40)
[2023-07-16] MEDS ORDERED: GLUCOSE 4 GM CHEW PO PRN (07:40)
[2023-07-16] MEDS: LABETALOL 100MG/20ML VIAL IV STA (07:43)
[2023-07-16] MEDS ORDERED: SYMBICORT 160/4.5MCG INHALER 6GM INH SCH (08:00)
[2023-07-16] MEDS ORDERED: FLUT1INH3 INH (08:18)
[2023-07-16] MEDS ORDERED: VENTAER INH (08:18)
[2023-07-16] MEDS ORDERED: SUCR1TA PO (08:18)
[2023-07-16] MEDS ORDERED: TRAZ-257 PO (08:18)
[2023-07-16] MEDS ORDERED: ALBU2.5V10 INH (08:18)
[2023-07-16] MEDS ORDERED: SERT-141 PO (08:18)
[2023-07-16] MEDS ORDERED: HOME MED LIST COMPLETE! XX SCH (08:20)
[2023-07-16 08:36] VITALS: BP 192/104; TEMP 97.3; O2SAT 100
[2023-07-16] MEDS: PANTOPRAZOLE 40MG VIAL IV SCH (09:20)
[2023-07-16] MEDS: hydrALAZINE 20MG/ML 1ML VIAL IV SCH ×2 (09:22→15:22)
[2023-07-16] MEDS: ASPIRIN 81MG CHEW TABLET PO SCH (09:44)
[2023-07-16] MEDS: GABAPENTIN 400MG CAP PO SCH (09:44)
[2023-07-16] MEDS: ALPRAZolam 0.5 MG TAB PO PRN (09:45)
[2023-07-16] MEDS: DIVALPROEX 250MG TAB PO SCH (09:45)
[2023-07-16] MEDS: VITAMIN D 1,000 INTERNATIONAL UNITS TABLET PO SCH (09:45)
[2023-07-16] MEDS: SERTRALINE 100 MG TAB PO SCH (09:46)
[2023-07-16] MEDS ORDERED: PROMETHAZINE 25MG SUPP PR PRN (11:00)
[2023-07-16] MEDS: busPIRone 10 MG TAB PO SCH (11:21)
[2023-07-16] MEDS: CALCITONIN SALMON (MIACALCIN) 400INTERNATIONAL UNITS/2ML VIAL SQ SCH (11:21)
[2023-07-16] MEDS: MAG SULF 1GM/100ML (MAG RUN) 1 GM in IV 1 EA IV ONE (11:22)
[2023-07-16] MEDS: HYDROMORPHONE HCL 0.5 MG/ 0.5 ML SYRINGE IV ONE (11:28)
[2023-07-16 11:49] VITALS: BP 170/90; TEMP 97.7; O2SAT 100
[2023-07-16] MEDS: INSULIN LISPRO (NovoLOG) PER UNIT SC SCH (12:00)
[2023-07-16] MEDS ORDERED: INSULIN LISPRO (NovoLOG) PER UNIT SC SCH ×2 (12:00→21:00)
[2023-07-16] MEDS: KCL 40MEQ IN D5/0.45NS 1000ML 1,000 ML IV SCH (13:22)
[2023-07-16] MEDS: METOCLOPRAMIDE INJ 10MG/2ML VIAL IV SCH (13:23)
[2023-07-16] MEDS: METOPROLOL 5 MG/5 ML VIAL IV SCH (13:25)
[2023-07-16] MEDS: SUCRALFATE SUSP 1GM/10ML UD PO SCH (13:25)
[2023-07-16 14:03] LABS: IONIZED CALCIUM 5.7 MG/DL (4.5-5.3)
[2023-07-16 14:28] LABS: MAGNESIUM LEVEL 1.5 MG/DL (1.8-2.4)
[2023-07-16 14:31] LABS: CREATININE FOR GFR 1.34 MG/DL (0.55-1.30); GLOMERULAR FILTRATION RATE 44.2 (>51); POTASSIUM SERUM 2.8 MMOL/L (3.5-5.1)
[2023-07-16] MEDS: MAG SULF 1GM/100ML (MAG RUN) 1 GM in IV 1 EA IV SCH (15:19)
[2023-07-16] MEDS: POTASSIUM CHLORIDE 10MEQ SR TABLET PO ONE (15:23)
[2023-07-16] MEDS: cloNIDine 0.1MG TABLET PO SCH (15:23)
[2023-07-16] MEDS: NITROGLYCERIN 2% OINT 1 GM *U/D* PKT TOP ONE (15:34)
[2023-07-16] MEDS: PROMETHAZINE 25MG/ML 1ML VIAL IV ONE (15:35)
[2023-07-16] MEDS: NITROGLYCERIN 2% OINT 1 GM *U/D* PKT TOP SCH (16:00)
[2023-07-16] MEDS ORDERED: ENOXAPARIN 80MG/0.8ML SYRINGE (J1650 PER 10MG) SC SCH (17:00)
[2023-07-16] MEDS: LABETALOL 100MG/20ML VIAL IV SCH (17:30)
[2023-07-16 17:42] VITALS: BP 139/77; TEMP 97.7; O2SAT 99
[2023-07-16] MEDS: KCL 10MEQ/100ML SWI (KRUN) 10 MEQ in IV 1 EA IV SCH (18:47)
[2023-07-16 19:10] LABS: IONIZED CALCIUM 5.7 MG/DL (4.5-5.3)
[2023-07-16] MEDS: ADVAIR HFA 230/21MCG INHALER INH SCH (19:38)
[2023-07-16 19:39] LABS: CREATININE FOR GFR 1.31 MG/DL (0.55-1.30); GLOMERULAR FILTRATION RATE 45.4 (>51); POTASSIUM SERUM 2.9 MMOL/L (3.5-5.1)
[2023-07-16 20:00] VITALS: BP 164/93; TEMP 97; O2SAT 100
[2023-07-16] MEDS: DEXTROSE 50% 50ML SYRINGE IV STA (20:20)
[2023-07-16] MEDS: ATORVASTATIN 20 MG TAB PO SCH (20:52)
[2023-07-16] MEDS: POTASSIUM CHLORIDE 10% LIQ 20MEQ/15ML UDC PO ONE (20:54)
[2023-07-16] MEDS: NS 250 ML IV SCH (20:54)
[2023-07-16] MEDS: TROPICAMIDE 0.5% OPHTH SOLN 15ML OU ONE (21:05)
[2023-07-16 23:19] VITALS: BP 132/70; TEMP 97.4; O2SAT 92
[2023-07-17 03:53] VITALS: BP 180/92; TEMP 98.2; O2SAT 97
[2023-07-17 06:35] LABS: BASO % 0.4 % (0.0-1.0); EOS # 0.2 10^3/uL (0.0-0.5); EOS % 1.9 % (0.0-3.0); HEMATOCRIT 30.5 % (36.0-47.0); HEMOGLOBIN 10.4 g/dl (12.0-15.5); LYMPH # 1.5 10^3/uL (1.5-5.0); LYMPH % 18.3 % (24.0-44.0); MEAN CORPUSCULAR HEMOGLOBIN 31.3 pg (27.0-33.0); MEAN CORPUSCULAR HGB CONC 34.1 g/dl (32.0-36.5); MEAN CORPUSCULAR VOLUME 91.9 fl (80.0-96.0); MONO # 0.4 10^3/uL (0.0-0.8); MONO % 5.3 % (2.0-8.0); NEUTROPHILS # 5.9 10^3/uL (1.5-8.5); NEUTROPHILS % 73.8 % (36.0-66.0); PLATELET COUNT, AUTOMATED 204 10^3/uL (150-450); RED BLOOD COUNT 3.32 10^6/uL (4.00-5.40); WHITE BLOOD COUNT 7.9 10^3/uL (4.0-10.0)
[2023-07-17 07:10] LABS: ALBUMIN 1.5 G/DL (3.2-5.2); BILIRUBIN,TOTAL 0.3 MG/DL (0.3-1.2); CALCIUM LEVEL 9.2 MG/DL (8.5-10.1); CREATININE FOR GFR 1.27 MG/DL (0.55-1.30); MAGNESIUM LEVEL 1.8 MG/DL (1.8-2.4); POTASSIUM SERUM 3.9 MMOL/L (3.5-5.1); TOTAL PROTEIN 4.3 G/DL (5.7-8.2)
[2023-07-17 08:06] VITALS: BP 161/84; TEMP 97.6; O2SAT 98
[2023-07-17] MEDS ORDERED: ONDANSETRON 4MG 2ML VIAL IV PRN (09:25)
[2023-07-17] MEDS: LEVOTHYROXINE 150MCG TABLET (0.15MG) PO SCH (10:02)
[2023-07-17] MEDS: FUROSEMIDE 100MG/10ML VIAL IV ONE (10:50)
[2023-07-17 12:15] VITALS: BP 130/95; TEMP 96.8; O2SAT 98
[2023-07-17] MEDS: POTASSIUM CHLORIDE 10MEQ SR TABLET PO SCH (12:40)
[2023-07-17 16:55] VITALS: BP 154/82; TEMP 98.1; O2SAT 96
[2023-07-17] MEDS: INSULIN LISPRO (NovoLOG) PER UNIT SC SCH (17:30)
[2023-07-17] MEDS: **hydrALAZINE HCL** 25 MG TAB PO SCH (18:00)
[2023-07-17] MEDS: LEVEMIR (INSULIN DETEMIR) 1 UNITS/0.01ML SC SCH (20:00)
[2023-07-17] MEDS: MORPHINE 2 MG/ML 1ML VIAL IV PRN (20:22)
[2023-07-17 21:25] VITALS: BP 158/90; TEMP 98.2; O2SAT 97
[2023-07-18] MEDS: MORPHINE 2 MG/ML 1ML VIAL IV ONE (00:20)
[2023-07-18 05:48] VITALS: BP 136/83; TEMP 98.2; O2SAT 96
[2023-07-18] MEDS: MORPHINE 2 MG/ML 1ML VIAL IV PRN (06:06)
[2023-07-18 06:25] LABS: IONIZED CALCIUM 5.5 MG/DL (4.5-5.3)
[2023-07-18 06:30] LABS: BASO % 0.5 % (0.0-1.0); EOS # 0.1 10^3/uL (0.0-0.5); EOS % 1.9 % (0.0-3.0); HEMATOCRIT 31.2 % (36.0-47.0); HEMOGLOBIN 10.4 g/dl (12.0-15.5); LYMPH # 1.9 10^3/uL (1.5-5.0); LYMPH % 26.3 % (24.0-44.0); MEAN CORPUSCULAR HEMOGLOBIN 31.3 pg (27.0-33.0); MEAN CORPUSCULAR HGB CONC 33.3 g/dl (32.0-36.5); MONO # 0.3 10^3/uL (0.0-0.8); MONO % 3.5 % (2.0-8.0); NEUTROPHILS # 4.9 10^3/uL (1.5-8.5); NEUTROPHILS % 67.5 % (36.0-66.0); PLATELET COUNT, AUTOMATED 253 10^3/uL (150-450); RED BLOOD COUNT 3.32 10^6/uL (4.00-5.40); WHITE BLOOD COUNT 7.3 10^3/uL (4.0-10.0)
[2023-07-18 06:56] LABS: CALCIUM LEVEL 9.2 MG/DL (8.5-10.1); CREATININE FOR GFR 1.32 MG/DL (0.55-1.30); MAGNESIUM LEVEL 1.7 MG/DL (1.8-2.4); POTASSIUM SERUM 4.8 MMOL/L (3.5-5.1)
[2023-07-18] MEDS: FUROSEMIDE 40MG/4ML VIAL IV SCH (08:34)
[2023-07-18 14:32] VITALS: TEMP 97.9; O2SAT 96
[2023-07-18 20:29] VITALS: BP 159/93; TEMP 98.8; O2SAT 96
[2023-07-18 22:55] LABS: TOTAL PROTEIN 24 HOUR URINE 2236.5 MG/24HR (50-80); URINE TOTAL PROTEIN 99.4 MG/DL (0-14)
[2023-07-18 23:00] LABS: CREATININE 24 HOUR, URINE 686.2 MG/24HR (600-1800); CREATININE, URINE 30.5 MG/DL
[2023-07-19 05:10] VITALS: TEMP 98.6; O2SAT 94
[2023-07-19 05:16] VITALS: BP 160/80
[2023-07-19 06:27] LABS: BASO % 0.6 % (0.0-1.0); EOS # 0.2 10^3/uL (0.0-0.5); EOS % 2.8 % (0.0-3.0); HEMATOCRIT 31.5 % (36.0-47.0); HEMOGLOBIN 10.3 g/dl (12.0-15.5); LYMPH # 1.9 10^3/uL (1.5-5.0); MEAN CORPUSCULAR HEMOGLOBIN 30.9 pg (27.0-33.0); MEAN CORPUSCULAR HGB CONC 32.7 g/dl (32.0-36.5); MEAN CORPUSCULAR VOLUME 94.6 fl (80.0-96.0); MONO # 0.3 10^3/uL (0.0-0.8); MONO % 4.2 % (2.0-8.0); NEUTROPHILS # 3.8 10^3/uL (1.5-8.5); NEUTROPHILS % 61.1 % (36.0-66.0); PLATELET COUNT, AUTOMATED 252 10^3/uL (150-450); RED BLOOD COUNT 3.33 10^6/uL (4.00-5.40); WHITE BLOOD COUNT 6.2 10^3/uL (4.0-10.0)
[2023-07-19 06:52] LABS: CALCIUM LEVEL 9.4 MG/DL (8.5-10.1); CREATININE FOR GFR 1.29 MG/DL (0.55-1.30); GLOMERULAR FILTRATION RATE 46.2 (>51); MAGNESIUM LEVEL 1.6 MG/DL (1.8-2.4); POTASSIUM SERUM 4.3 MMOL/L (3.5-5.1)
[2023-07-19 07:49] LABS: ALBUMIN 1.6 G/DL (3.2-5.2)
[2023-07-19] MEDS: MAGNESIUM GLUCONATE 500 MG TAB PO SCH (08:32)
[2023-07-19 14:30] VITALS: BP 136/66; TEMP 97.9; O2SAT 97
[2023-07-19 22:00] VITALS: BP 148/76; TEMP 97.9; O2SAT 98
[2023-07-20 06:00] VITALS: BP 156/96; TEMP 97.9; O2SAT 98
[2023-07-20 07:41] LABS: BASO % 0.5 % (0.0-1.0); EOS # 0.2 10^3/uL (0.0-0.5); EOS % 2.7 % (0.0-3.0); HEMATOCRIT 33.6 % (36.0-47.0); HEMOGLOBIN 11.1 g/dl (12.0-15.5); LYMPH # 2.2 10^3/uL (1.5-5.0); LYMPH % 40.9 % (24.0-44.0); MEAN CORPUSCULAR HEMOGLOBIN 31.2 pg (27.0-33.0); MEAN CORPUSCULAR VOLUME 94.4 fl (80.0-96.0); MONO # 0.3 10^3/uL (0.0-0.8); MONO % 4.9 % (2.0-8.0); NEUTROPHILS # 2.8 10^3/uL (1.5-8.5); NEUTROPHILS % 50.8 % (36.0-66.0); PLATELET COUNT, AUTOMATED 284 10^3/uL (150-450); RED BLOOD COUNT 3.56 10^6/uL (4.00-5.40); WHITE BLOOD COUNT 5.5 10^3/uL (4.0-10.0)
[2023-07-20 08:20] LABS: CALCIUM LEVEL 10.7 MG/DL (8.5-10.1); CREATININE FOR GFR 1.27 MG/DL (0.55-1.30); MAGNESIUM LEVEL 1.6 MG/DL (1.8-2.4)
[2023-07-20] MEDS: VITAMIN D 1,000 INTERNATIONAL UNITS TABLET PO SCH (08:23)
[2023-07-20 09:33] LABS: HEMOGLOBIN A1c 5.4 % (4.0-6.0)
[2023-07-20 10:00] VITALS: BP 116/68; TEMP 97.7; O2SAT 99
[2023-07-20 14:00] VITALS: BP 132/80; TEMP 97.9; O2SAT 98
[2023-07-20 18:00] VITALS: BP 150/86; TEMP 97.9; O2SAT 98
[2023-07-20 20:46] VITALS: BP 144/68; TEMP 97.9; O2SAT 99
[2023-07-21 04:54] VITALS: BP 136/56; TEMP 98.8; O2SAT 96
[2023-07-21 05:51] LABS: BASO % 0.6 % (0.0-1.0); EOS # 0.1 10^3/uL (0.0-0.5); EOS % 2.5 % (0.0-3.0); LYMPH # 1.9 10^3/uL (1.5-5.0); LYMPH % 39.3 % (24.0-44.0); MEAN CORPUSCULAR HEMOGLOBIN 31.4 pg (27.0-33.0); MEAN CORPUSCULAR HGB CONC 33.3 g/dl (32.0-36.5); MEAN CORPUSCULAR VOLUME 94.3 fl (80.0-96.0); MONO # 0.3 10^3/uL (0.0-0.8); MONO % 5.2 % (2.0-8.0); NEUTROPHILS # 2.5 10^3/uL (1.5-8.5); NEUTROPHILS % 52.2 % (36.0-66.0); PLATELET COUNT, AUTOMATED 251 10^3/uL (150-450); RED BLOOD COUNT 3.18 10^6/uL (4.00-5.40); WHITE BLOOD COUNT 4.8 10^3/uL (4.0-10.0)
[2023-07-21 06:24] LABS: CREATININE FOR GFR 1.2 MG/DL (0.55-1.30); GLOMERULAR FILTRATION RATE 50.2 (>51); MAGNESIUM LEVEL 1.6 MG/DL (1.8-2.4); POTASSIUM SERUM 3.7 MMOL/L (3.5-5.1)
[2023-07-21 08:00] VITALS: BP_SYST 156; BP_SYST 158; BP_DIAS 82; BP_DIAS 96; TEMP 97.9; TEMP 98.2; O2SAT 94; O2SAT 98
[2023-07-21] MEDS ORDERED: ONDANSETRON 4MG 2ML VIAL As Ordered ONE (08:02)
[2023-07-21] MEDS ORDERED: LIDOCAINE 2% 100MG/5ML SDV (FOR ANES.) As Ordered ONE (08:02)
[2023-07-21] MEDS ORDERED: fentaNYL 100 MCG/2 ML INJECTION As Ordered ONE (08:02)
[2023-07-21] MEDS ORDERED: propofoL 200 MG/20 ML VIAL As Ordered ONE (08:02)
[2023-07-21 09:00] VITALS: BP 158/96; TEMP 97.9; O2SAT 94
[2023-07-21 09:30] VITALS: BP 158/96; TEMP 97.9; O2SAT 94
[2023-07-21] MEDS: KETOROLAC 30 MG/ML 1ML VIAL IV ONE (13:07)
[2023-07-21] MEDS: METOCLOPRAMIDE 10MG TAB PO SCH (13:07)
[2023-07-21 14:00] VITALS: BP 156/90; TEMP 97.9; O2SAT 95
[2023-07-21 21:12] VITALS: BP 163/97; TEMP 97.9; O2SAT 99
[2023-07-21] MEDS ORDERED: ACETAMINOPHEN TAB 650MG DOSE (2X325MG) PO PRN (22:55)
[2023-07-21] MEDS: PERCOCET 5MG/325MG TAB PO PRN (23:47)
[2023-07-22 04:50] VITALS: BP 156/89; TEMP 97.9; O2SAT 94
[2023-07-22 04:52] VITALS: BP 156/89
[2023-07-22] MEDS ORDERED: TORS20TA2 PO (08:01)
[2023-07-22] MEDS ORDERED: MAGN50TA PO (08:01)
[2023-07-22] MEDS ORDERED: METO10TA2 PO (08:01)
[2023-07-22] MEDS ORDERED: BASA100I SC (08:01)
[2023-07-22 08:17] LABS: BASO % 0.3 % (0.0-1.0); EOS # 0.2 10^3/uL (0.0-0.5); EOS % 2.2 % (0.0-3.0); HEMATOCRIT 33.2 % (36.0-47.0); HEMOGLOBIN 10.8 g/dl (12.0-15.5); LYMPH # 2.2 10^3/uL (1.5-5.0); LYMPH % 29.7 % (24.0-44.0); MEAN CORPUSCULAR HEMOGLOBIN 31.2 pg (27.0-33.0); MEAN CORPUSCULAR HGB CONC 32.5 g/dl (32.0-36.5); MONO # 0.4 10^3/uL (0.0-0.8); MONO % 5.9 % (2.0-8.0); NEUTROPHILS # 4.5 10^3/uL (1.5-8.5); NEUTROPHILS % 61.6 % (36.0-66.0); PLATELET COUNT, AUTOMATED 288 10^3/uL (150-450); RED BLOOD COUNT 3.46 10^6/uL (4.00-5.40); WHITE BLOOD COUNT 7.3 10^3/uL (4.0-10.0)
[2023-07-22 08:47] LABS: CALCIUM LEVEL 10.4 MG/DL (8.5-10.1); CREATININE FOR GFR 1.29 MG/DL (0.55-1.30); GLOMERULAR FILTRATION RATE 46.2 (>51); MAGNESIUM LEVEL 1.6 MG/DL (1.8-2.4); POTASSIUM SERUM 3.9 MMOL/L (3.5-5.1)
[2023-07-22] MEDS: PANTOPRAZOLE 40MG TAB (PROTONIX) PO SCH (08:53)
== END 2023-07-22 10:00 | disposition home or self-care (01) | DRG 282 ==
LOC: M ED 02:46 → M ED INP 07:14 → M PCU 08:14 → M MSPAV 07-17 16:47
PROVIDERS: ADMIT General Practice; ATTEND Internal Medicine Nephrology
PROC: 0DJ08ZZ Inspection of Upper Intestinal Tract, Via Natural or Artificial Opening Endoscopic (ICD-10-PCS; principal; 2023-07-21 08:30)
DX: K85.90 Acute pancreatitis without necrosis or infection, unspecified (principal); E11.22 Type 2 diabetes mellitus with diabetic chronic kidney disease; I27.20 Pulmonary hypertension, unspecified; E88.09 Other disorders of plasma-protein metabolism, not elsewhere classified; I48.0 Paroxysmal atrial fibrillation; I12.9 Hypertensive chronic kidney disease with stage 1 through stage 4 chronic kidney disease, or unspecified chronic kidney disease; G43.909 Migraine, unspecified, not intractable, without status migrainosus; E11.43 Type 2 diabetes mellitus with diabetic autonomic (poly)neuropathy; K31.84 Gastroparesis; N18.30 Chronic kidney disease, stage 3 unspecified; E21.0 Primary hyperparathyroidism; I16.0 Hypertensive urgency; E87.6 Hypokalemia; I25.10 Atherosclerotic heart disease of native coronary artery without angina pectoris; F41.8 Other specified anxiety disorders; F31.9 Bipolar disorder, unspecified; G89.29 Other chronic pain; F17.200 Nicotine dependence, unspecified, uncomplicated; K29.80 Duodenitis without bleeding; J44.9 Chronic obstructive pulmonary disease, unspecified; J45.909 Unspecified asthma, uncomplicated; E03.9 Hypothyroidism, unspecified; K21.9 Gastro-esophageal reflux disease without esophagitis; G47.33 Obstructive sleep apnea (adult) (pediatric); E78.2 Mixed hyperlipidemia; K44.9 Diaphragmatic hernia without obstruction or gangrene; R63.4 Abnormal weight loss; G47.00 Insomnia, unspecified; R68.81 Early satiety; Z90.49 Acquired absence of other specified parts of digestive tract; Z87.81 Personal history of (healed) traumatic fracture; Z98.49 Cataract extraction status, unspecified eye; Z79.82 Long term (current) use of aspirin; Z79.890 Hormone replacement therapy; Z79.899 Other long term (current) drug therapy

== ENCOUNTER 2023-07-27 12:47 | Emergency (ER) | payer OTHER ==
[~2023-07-27] VITALS: Ht 165.1 cm; Wt 77.3 kg
[~2023-07-27 12:47] MED LIST changes: +ALBU2.5V10 INH; +FLUT1INH3 INH; +MAGN50TA PO; +SERT-141 PO; +TORS20TA2 PO
[2023-07-27 14:43] LABS: BASO % 0.3 % (0.0-1.0); EOS % 0.4 % (0.0-3.0); HEMATOCRIT 39.6 % (36.0-47.0); HEMOGLOBIN 13.4 g/dl (12.0-15.5); LYMPH # 1.2 10^3/uL (1.5-5.0); LYMPH % 12.9 % (24.0-44.0); MEAN CORPUSCULAR HEMOGLOBIN 31.7 pg (27.0-33.0); MEAN CORPUSCULAR HGB CONC 33.8 g/dl (32.0-36.5); MEAN CORPUSCULAR VOLUME 93.6 fl (80.0-96.0); MONO # 0.5 10^3/uL (0.0-0.8); MONO % 4.9 % (2.0-8.0); NEUTROPHILS # 7.6 10^3/uL (1.5-8.5); NEUTROPHILS % 81.2 % (36.0-66.0); PLATELET COUNT, AUTOMATED 337 10^3/uL (150-450); RED BLOOD COUNT 4.23 10^6/uL (4.00-5.40); WHITE BLOOD COUNT 9.4 10^3/uL (4.0-10.0)
[2023-07-27 15:07] LABS: ALBUMIN 2.1 G/DL (3.2-5.2); BILIRUBIN,DIRECT 0.2 MG/DL (<0.4); BILIRUBIN,TOTAL 0.4 MG/DL (0.3-1.2); CALCIUM LEVEL 11.2 MG/DL (8.5-10.1); CREATININE FOR GFR 1.35 MG/DL (0.55-1.30); GLOMERULAR FILTRATION RATE 43.8 (>51); POTASSIUM SERUM 5.3 MMOL/L (3.5-5.1); TOTAL PROTEIN 6.1 G/DL (5.7-8.2)
[2023-07-27] MEDS: SUCRALFATE 1 GM TAB PO ONE (15:42)
[2023-07-27] MEDS: AMOXICILLIN 500 MG CAP PO ONE (16:45)
[2023-07-27] MEDS: KETOROLAC 30 MG/ML 1ML VIAL IV ONE (16:45)
[2023-07-27] MEDS: ONDANSETRON 4MG 2ML VIAL IV ONE (16:45)
[2023-07-27] MEDS: NS 1,000 ML IV ONE (16:46)
[2023-07-27] MEDS: PANTOPRAZOLE 40MG VIAL IV ONE (17:17)
[2023-07-27] MEDS ORDERED: PRIL20TA2 PO (17:24)
[2023-07-27] MEDS ORDERED: AMOX500T PO (17:24)
[2023-07-27 17:57] VITALS: BP 170/100; TEMP 98.8; O2SAT 95
== END 2023-07-27 17:59 | disposition home or self-care (01) ==
LOC: M ED 12:47
DX: K25.9 Gastric ulcer, unspecified as acute or chronic, without hemorrhage or perforation (principal); J44.9 Chronic obstructive pulmonary disease, unspecified; R07.9 Chest pain, unspecified; Z87.19 Personal history of other diseases of the digestive system; F17.200 Nicotine dependence, unspecified, uncomplicated; Z79.82 Long term (current) use of aspirin; Z79.899 Other long term (current) drug therapy
CPT/HCPCS: 74176; 80047; 80048; 80076; 81001; 83690; 85025; 96374; 96375; 99284; C9113; J1885; J2405

== ENCOUNTER 2023-08-02 11:51 | Emergency (ER) | payer OTHER ==
[~2023-08-02] VITALS: Ht 165.1 cm; Wt 77.3 kg
[~2023-08-02 11:51] MED LIST changes: +AMOX500T PO; +PRIL20TA2 PO
[2023-08-02 13:22] LABS: BASO % 0.3 % (0.0-1.0); EOS % 0.2 % (0.0-3.0); HEMATOCRIT 38.9 % (36.0-47.0); HEMOGLOBIN 13.5 g/dl (12.0-15.5); LYMPH # 2.2 10^3/uL (1.5-5.0); LYMPH % 24.1 % (24.0-44.0); MEAN CORPUSCULAR HEMOGLOBIN 31.5 pg (27.0-33.0); MEAN CORPUSCULAR HGB CONC 34.7 g/dl (32.0-36.5); MEAN CORPUSCULAR VOLUME 90.7 fl (80.0-96.0); MONO # 0.4 10^3/uL (0.0-0.8); MONO % 3.9 % (2.0-8.0); NEUTROPHILS # 6.5 10^3/uL (1.5-8.5); NEUTROPHILS % 71.2 % (36.0-66.0); PLATELET COUNT, AUTOMATED 442 10^3/uL (150-450); RED BLOOD COUNT 4.29 10^6/uL (4.00-5.40); WHITE BLOOD COUNT 9.1 10^3/uL (4.0-10.0)
[2023-08-02 13:46] LABS: CK-MB VALUE MASS 1.1 NG/ML (<3.6)
[2023-08-02 13:47] LABS: ALBUMIN 2.2 G/DL (3.2-5.2); BILIRUBIN,DIRECT 0.2 MG/DL (<0.4); BILIRUBIN,TOTAL 0.5 MG/DL (0.3-1.2); CALCIUM LEVEL 11.6 MG/DL (8.5-10.1); CREATININE FOR GFR 1.95 MG/DL (0.55-1.30); GLOMERULAR FILTRATION RATE 28.7 (>51); POTASSIUM SERUM 4.9 MMOL/L (3.5-5.1); TOTAL PROTEIN 6.6 G/DL (5.7-8.2)
[2023-08-02 13:47] LABS: MB/CK RELATIVE INDEX 2.34 (< OR =4)
[2023-08-02] MEDS ORDERED: SUCR1TAB56 (14:42)
[2023-08-02] MEDS: NS 1,000 ML IV ONE (18:35)
[2023-08-02] MEDS: ONDANSETRON 4MG 2ML VIAL IV ONE (18:36)
[2023-08-02] MEDS: MORPHINE 2 MG/ML 1ML VIAL IV ONE (18:36)
[2023-08-02 20:16] VITALS: BP 166/99; TEMP 97.3
[2023-08-02 20:33] VITALS: O2SAT 98
== END 2023-08-02 20:32 | disposition home or self-care (01) ==
LOC: EDBD 11:51 → M ED 11:51
DX: E86.0 Dehydration (principal); K29.50 Unspecified chronic gastritis without bleeding; N17.9 Acute kidney failure, unspecified; R00.0 Tachycardia, unspecified; E11.9 Type 2 diabetes mellitus without complications; I10 Essential (primary) hypertension; K27.9 Peptic ulcer, site unspecified, unspecified as acute or chronic, without hemorrhage or perforation; F03.90 Unspecified dementia, unspecified severity, without behavioral disturbance, psychotic disturbance, mood disturbance, and anxiety; G40.909 Epilepsy, unspecified, not intractable, without status epilepticus; F12.10 Cannabis abuse, uncomplicated; F17.200 Nicotine dependence, unspecified, uncomplicated; Z86.79 Personal history of other diseases of the circulatory system; Z87.19 Personal history of other diseases of the digestive system; Z86.73 Personal history of transient ischemic attack (TIA), and cerebral infarction without residual deficits; Z79.52 Long term (current) use of systemic steroids; Z79.4 Long term (current) use of insulin; Z79.811 Long term (current) use of aromatase inhibitors; Z79.810 Long term (current) use of selective estrogen receptor modulators (SERMs); Z79.899 Other long term (current) drug therapy
CPT/HCPCS: 74176; 80048; 80076; 81001; 82150; 82550; 82553; 83605; 83690; 84484; 85025; 87086; 87324; 87507; 93005; 96361; 96374; 99284; J2405

== ENCOUNTER → 2023-10-08 | Outpatient (REF) | payer OTHER ==
[~2023-10-08] MED LIST changes: +SUCR1TAB56
[2023-10-09 13:15] LABS: ALBUMIN 3.2 G/DL (3.2-5.2); BILIRUBIN,TOTAL 0.3 MG/DL (0.3-1.2); CALCIUM LEVEL 10.6 MG/DL (8.5-10.1); CREATININE FOR GFR 2.05 MG/DL (0.55-1.30); GLOMERULAR FILTRATION RATE 27.1 (>51); POTASSIUM SERUM 5.3 MMOL/L (3.5-5.1); TOTAL PROTEIN 7.2 G/DL (5.7-8.2)
[2023-10-09 13:17] LABS: THYROID STIMULATING HORMONE 0.088 uIU/ML (0.55-4.78)
== END ==
LOC: M LAB REF 12:33
PROVIDERS: ATTEND Nurse Practitioner Family
DX: E03.9 Hypothyroidism, unspecified (principal); N18.4 Chronic kidney disease, stage 4 (severe)

== ENCOUNTER → 2023-10-15 | Outpatient (CLI) | payer OTHER ==
[2023-10-15 14:55] LABS: IONIZED CALCIUM 5.4 MG/DL (4.5-5.3)
[2023-10-15 15:29] LABS: ALBUMIN 3.2 G/DL (3.2-5.2); BILIRUBIN,TOTAL 0.3 MG/DL (0.3-1.2); CALCIUM LEVEL 10.3 MG/DL (8.5-10.1); CREATININE FOR GFR 1.95 MG/DL (0.55-1.30); GLOMERULAR FILTRATION RATE 28.7 (>51); PTH INTACT 158.8 PG/ML (18.5-88.0); TOTAL PROTEIN 7.1 G/DL (5.7-8.2)
== END ==
LOC: M LAB 14:27
PROVIDERS: ATTEND Nurse Practitioner Family
DX: N18.4 Chronic kidney disease, stage 4 (severe) (principal)

== ENCOUNTER → 2024-02-13 | Outpatient (REF) | payer OTHER ==
[~2024-02-13] MED LIST changes: +GABA-1172 PO; +GABA-1490 PO; -GABA-282 PO; -GABA600T4 PO
[2024-02-13 14:27] LABS: CREATININE, URINE 84.4 MG/DL
[2024-02-13 14:41] LABS: MAU/CREAT RATIO 1619.6 MCG/MG (0.0-30.0)
== END ==
LOC: M LAB REF 13:15
PROVIDERS: ATTEND Pediatrics
DX: E11.69 Type 2 diabetes mellitus with other specified complication (principal)

== ENCOUNTER → 2024-02-13 | Outpatient (REF) | payer OTHER ==
[2024-02-13 14:05] LABS: BASO # 0.1 10^3/uL (0.0-0.2); BASO % 0.6 % (0.0-1.0); EOS # 0.1 10^3/uL (0.0-0.5); EOS % 0.9 % (0.0-3.0); HEMATOCRIT 35.8 % (36.0-47.0); HEMOGLOBIN 12.2 g/dl (12.0-15.5); LYMPH % 21.9 % (24.0-44.0); MEAN CORPUSCULAR HEMOGLOBIN 29.8 pg (27.0-33.0); MEAN CORPUSCULAR HGB CONC 34.1 g/dl (32.0-36.5); MEAN CORPUSCULAR VOLUME 87.3 fl (80.0-96.0); MONO # 0.6 10^3/uL (0.0-0.8); MONO % 6.2 % (2.0-8.0); NEUTROPHILS # 6.3 10^3/uL (1.5-8.5); NEUTROPHILS % 69.3 % (36.0-66.0); PLATELET COUNT, AUTOMATED 320 10^3/uL (150-450)
[2024-02-13 14:14] LABS: ALBUMIN 2.2 G/DL (3.2-5.2); BILIRUBIN,TOTAL 0.3 MG/DL (0.3-1.2); CALCIUM LEVEL 10.2 MG/DL (8.5-10.1); CHOLESTEROL RISK RATIO 6.74 (<5); CREATININE FOR GFR 1.67 MG/DL (0.55-1.30); GLOMERULAR FILTRATION RATE 34.3 (>51); HDL CHOLESTEROL 29.5 MG/DL (>40); LDL CHOLESTEROL 110.9 MG/DL (<100); NON-HDL-C 169.5 MG/DL; POTASSIUM SERUM 3.9 MMOL/L (3.5-5.1)
[2024-02-13 14:15] LABS: PTH INTACT 175.6 PG/ML (18.5-88.0)
[2024-02-13 14:17] LABS: THYROID STIMULATING HORMONE 1.45 uIU/ML (0.55-4.78)
[2024-02-13 14:40] LABS: HEMOGLOBIN A1c 11.2 % (4.0-6.0)
== END ==
LOC: M LAB REF 13:14
PROVIDERS: ATTEND Pediatrics
DX: E03.9 Hypothyroidism, unspecified (principal); E11.69 Type 2 diabetes mellitus with other specified complication; E21.3 Hyperparathyroidism, unspecified; E78.5 Hyperlipidemia, unspecified

== ENCOUNTER 2024-02-29 17:16 | Emergency (ER) | payer OTHER ==
[~2024-02-29] VITALS: Ht 165.1 cm; Wt 86.4 kg
[2024-02-29] MEDS: ONDANSETRON 4MG ORAL DISINTEGRATING TAB PO ONE (19:17)
[2024-02-29] MEDS: ACETAMINOPHEN *IV* 1,000 MG in IV 1 EA IV ONE (19:30)
[2024-02-29 19:35] LABS: BASO % 0.2 % (0.0-1.0); EOS % 0.1 % (0.0-3.0); HEMATOCRIT 29.2 % (36.0-47.0); LYMPH # 0.5 10^3/uL (1.5-5.0); LYMPH % 3.6 % (24.0-44.0); MEAN CORPUSCULAR HEMOGLOBIN 29.7 pg (27.0-33.0); MEAN CORPUSCULAR HGB CONC 34.2 g/dl (32.0-36.5); MEAN CORPUSCULAR VOLUME 86.6 fl (80.0-96.0); MONO # 0.7 10^3/uL (0.0-0.8); MONO % 5.1 % (2.0-8.0); NEUTROPHILS # 12.5 10^3/uL (1.5-8.5); NEUTROPHILS % 90.1 % (36.0-66.0); PLATELET COUNT, AUTOMATED 265 10^3/uL (150-450); RED BLOOD COUNT 3.37 10^6/uL (4.00-5.40); WHITE BLOOD COUNT 13.9 10^3/uL (4.0-10.0)
[2024-02-29 20:04] LABS: LIPASE 17 U/L (12-53)
[2024-02-29 20:07] LABS: ALBUMIN 1.8 G/DL (3.2-5.2); ALKALINE PHOSPHATASE 147 U/L (35-104); ALT/SGPT < 9 U/L (7.0-40); AST/SGOT 12 U/L (<34); BILIRUBIN,DIRECT 0.2 MG/DL (<0.4); BILIRUBIN,TOTAL 0.5 MG/DL (0.3-1.2); TOTAL PROTEIN 6.7 G/DL (5.7-8.2)
[2024-02-29 20:28] LABS: BLOOD UREA NITROGEN 17 MG/DL (9-23); CALCIUM LEVEL 8.8 MG/DL (8.5-10.1); CARBON DIOXIDE LEVEL 26 MMOL/L (20-31); CHLORIDE LEVEL 101 MMOL/L (98-107); CREATININE FOR GFR 1.64 MG/DL (0.55-1.30); GLUCOSE, FASTING 442 MG/DL (60-100); POTASSIUM SERUM 3.8 MMOL/L (3.5-5.1); SODIUM LEVEL 137 MMOL/L (136-145)
[2024-02-29] MEDS ORDERED: ISOVUE-370 76% 100ML VIAL As Ordered ONE (20:41)
[2024-02-29 21:49] LABS: KETONE, URINE AUTO RFX NEGATIVE (NEGATIVE); LEUKOCYTE ESTERASE UR AUTO RFX NEGATIVE (NEGATIVE); NITRITE, URINE AUTO RFX NEGATIVE (NEGATIVE); RBC, URINE AUTO RFX 70 /HPF (0-3); SQUAM EPITHELIAL CELL UR AURFX 9 /HPF (0-6); WBC, URINE AUTO RFX 3 /HPF (0-3)
[2024-02-29] MEDS: ONDANSETRON 4MG 2ML VIAL IV ONE (22:23)
[2024-02-29] MEDS: CLOPIDOGREL 75 MG TAB PO ONE (22:23)
[2024-02-29] MEDS: cefTRIAXone SOD 2 GM in DEXTROSE 5% (D5W) ADV/MINI-BAG 50 ML IV ONE (22:23)
[2024-02-29 22:29] VITALS: TEMP 99.7
[2024-02-29 22:30] VITALS: BP 162/83; O2SAT 99
[2024-02-29] MEDS ORDERED: HumuLIN R (REGULAR) INSULIN (NovoLIN R) **100U/ML** PER UNIT IV ONE (23:05)
== END 2024-02-29 23:42 | disposition short-term general hospital (02) ==
LOC: M ED 17:16
DX: I63.542 Cerebral infarction due to unspecified occlusion or stenosis of left cerebellar artery (principal); R50.9 Fever, unspecified; E11.9 Type 2 diabetes mellitus without complications; I10 Essential (primary) hypertension; K21.9 Gastro-esophageal reflux disease without esophagitis; F03.90 Unspecified dementia, unspecified severity, without behavioral disturbance, psychotic disturbance, mood disturbance, and anxiety; J44.9 Chronic obstructive pulmonary disease, unspecified; F41.9 Anxiety disorder, unspecified; F31.30 Bipolar disorder, current episode depressed, mild or moderate severity, unspecified; Z86.73 Personal history of transient ischemic attack (TIA), and cerebral infarction without residual deficits; Z79.82 Long term (current) use of aspirin; Z79.899 Other long term (current) drug therapy
CPT/HCPCS: 70450; 70496; 70498; 71045; 74176; 80047; 80048; 80076; 81001; 83605; 83690; 85025; 87040; 87077; 87154; 87186; 87486; 87581; 87633; 87798; 93005; 93041; 96365; 96366; 96368; 99285; J0131; J0696; Q9967

== ENCOUNTER → 2024-03-18 | Outpatient (REF) | payer OTHER ==
[2024-03-18 15:45] LABS: HEMATOCRIT 26.6 % (36.0-47.0); HEMOGLOBIN 8.7 g/dl (12.0-15.5); MEAN CORPUSCULAR HGB CONC 32.7 g/dl (32.0-36.5); MEAN CORPUSCULAR VOLUME 91.7 fl (80.0-96.0); PLATELET COUNT, AUTOMATED 288 10^3/uL (150-450); WHITE BLOOD COUNT 6.9 10^3/uL (4.0-10.0)
[2024-03-18 16:10] LABS: ALBUMIN 1.9 G/DL (3.2-5.2); ALKALINE PHOSPHATASE 157 U/L (35-104); ALT/SGPT < 9 U/L (7.0-40); AST/SGOT 12 U/L (<34); BILIRUBIN,TOTAL 0.2 MG/DL (0.3-1.2); BLOOD UREA NITROGEN 26 MG/DL (9-23); CALCIUM LEVEL 9.1 MG/DL (8.5-10.1); CARBON DIOXIDE LEVEL 22 MMOL/L (20-31); CHLORIDE LEVEL 111 MMOL/L (98-107); CREATININE FOR GFR 1.71 MG/DL (0.55-1.30); GLOMERULAR FILTRATION RATE 33.4 (>51); GLUCOSE, FASTING 113 MG/DL (60-100); POTASSIUM SERUM 4.2 MMOL/L (3.5-5.1); SODIUM LEVEL 143 MMOL/L (136-145); TOTAL PROTEIN 6.7 G/DL (5.7-8.2)
[2024-03-18 16:26] LABS: ATYPICAL LYMPH 1 % (0-5); BASOPHILS 2 % (0-1); EOSINOPHILS 1 % (0-3); LYMPHOCYTES 22 % (16-44); MONOCYTES 5 % (0-5); NEUTROPHILS 69 % (28-66); PLATELET ESTIMATE NORMAL (NORMAL)
== END ==
LOC: M SHH 15:30
PROVIDERS: ATTEND Internal Medicine Infectious Disease
DX: R78.81 Bacteremia (principal); B95.61 Methicillin susceptible Staphylococcus aureus infection as the cause of diseases classified elsewhere; I33.0 Acute and subacute infective endocarditis; I76 Septic arterial embolism

== ENCOUNTER → 2024-03-24 | Outpatient (REF) | payer OTHER ==
[2024-03-24 15:38] LABS: BASO % 0.7 % (0.0-1.0); EOS # 0.2 10^3/uL (0.0-0.5); EOS % 3.9 % (0.0-3.0); HEMATOCRIT 25.3 % (36.0-47.0); LYMPH # 1.3 10^3/uL (1.5-5.0); LYMPH % 21.7 % (24.0-44.0); MEAN CORPUSCULAR HEMOGLOBIN 29.5 pg (27.0-33.0); MEAN CORPUSCULAR HGB CONC 31.6 g/dl (32.0-36.5); MEAN CORPUSCULAR VOLUME 93.4 fl (80.0-96.0); MONO # 0.3 10^3/uL (0.0-0.8); MONO % 4.9 % (2.0-8.0); NEUTROPHILS # 4.2 10^3/uL (1.5-8.5); NEUTROPHILS % 68.5 % (36.0-66.0); PLATELET COUNT, AUTOMATED 256 10^3/uL (150-450); RED BLOOD COUNT 2.71 10^6/uL (4.00-5.40); WHITE BLOOD COUNT 6.1 10^3/uL (4.0-10.0)
[2024-03-24 16:09] LABS: ALBUMIN 1.8 G/DL (3.2-5.2); ALKALINE PHOSPHATASE 179 U/L (35-104); ALT/SGPT 11 U/L (7.0-40); AST/SGOT 15 U/L (<34); BILIRUBIN,TOTAL < 0.2 MG/DL (0.3-1.2); BLOOD UREA NITROGEN 23 MG/DL (9-23); CALCIUM LEVEL 8.4 MG/DL (8.5-10.1); CARBON DIOXIDE LEVEL 22 MMOL/L (20-31); CHLORIDE LEVEL 108 MMOL/L (98-107); CREATININE FOR GFR 1.57 MG/DL (0.55-1.30); GLOMERULAR FILTRATION RATE 36.8 (>51); GLUCOSE, FASTING 137 MG/DL (60-100); POTASSIUM SERUM 4.4 MMOL/L (3.5-5.1); SODIUM LEVEL 141 MMOL/L (136-145); TOTAL PROTEIN 6.3 G/DL (5.7-8.2)
== END ==
LOC: M LAB REF 15:06
PROVIDERS: ATTEND Internal Medicine Infectious Disease
DX: R78.81 Bacteremia (principal); B95.61 Methicillin susceptible Staphylococcus aureus infection as the cause of diseases classified elsewhere; I33.0 Acute and subacute infective endocarditis; I76 Septic arterial embolism

== ENCOUNTER → 2024-04-01 | Outpatient (REF) | payer OTHER ==
[2024-04-01 18:05] LABS: BASO # 0.1 10^3/uL (0.0-0.2); BASO % 0.6 % (0.0-1.0); EOS # 0.2 10^3/uL (0.0-0.5); EOS % 2.1 % (0.0-3.0); HEMATOCRIT 27.2 % (36.0-47.0); HEMOGLOBIN 8.8 g/dl (12.0-15.5); LYMPH # 1.6 10^3/uL (1.5-5.0); LYMPH % 20.9 % (24.0-44.0); MEAN CORPUSCULAR HEMOGLOBIN 30.1 pg (27.0-33.0); MEAN CORPUSCULAR HGB CONC 32.4 g/dl (32.0-36.5); MEAN CORPUSCULAR VOLUME 93.2 fl (80.0-96.0); MONO # 0.4 10^3/uL (0.0-0.8); MONO % 4.9 % (2.0-8.0); NEUTROPHILS # 5.5 10^3/uL (1.5-8.5); NEUTROPHILS % 71.1 % (36.0-66.0); PLATELET COUNT, AUTOMATED 313 10^3/uL (150-450); RED BLOOD COUNT 2.92 10^6/uL (4.00-5.40); WHITE BLOOD COUNT 7.8 10^3/uL (4.0-10.0)
[2024-04-01 18:35] LABS: ALBUMIN 1.9 G/DL (3.2-5.2); ALKALINE PHOSPHATASE 149 U/L (35-104); ALT/SGPT 11 U/L (7.0-40); AST/SGOT 13 U/L (<34); BILIRUBIN,TOTAL < 0.2 MG/DL (0.3-1.2); BLOOD UREA NITROGEN 31 MG/DL (9-23); CALCIUM LEVEL 8.5 MG/DL (8.5-10.1); CARBON DIOXIDE LEVEL 22 MMOL/L (20-31); CHLORIDE LEVEL 111 MMOL/L (98-107); CREATININE FOR GFR 1.65 MG/DL (0.55-1.30); GLOMERULAR FILTRATION RATE 34.8 (>51); GLUCOSE, FASTING 150 MG/DL (60-100); POTASSIUM SERUM 4.2 MMOL/L (3.5-5.1); SODIUM LEVEL 141 MMOL/L (136-145); TOTAL PROTEIN 6.5 G/DL (5.7-8.2)
== END ==
LOC: M LAB REF 17:31
PROVIDERS: ATTEND Internal Medicine Infectious Disease
DX: R78.81 Bacteremia (principal); B95.61 Methicillin susceptible Staphylococcus aureus infection as the cause of diseases classified elsewhere; I33.0 Acute and subacute infective endocarditis; I76 Septic arterial embolism

== ENCOUNTER → 2024-04-07 | Outpatient (REF) | payer OTHER ==
[2024-04-07 16:08] LABS: BASO # 0.1 10^3/uL (0.0-0.2); BASO % 0.8 % (0.0-1.0); EOS # 0.3 10^3/uL (0.0-0.5); EOS % 3.8 % (0.0-3.0); HEMATOCRIT 26.2 % (36.0-47.0); HEMOGLOBIN 8.6 g/dl (12.0-15.5); LYMPH # 1.4 10^3/uL (1.5-5.0); LYMPH % 21.4 % (24.0-44.0); MEAN CORPUSCULAR HEMOGLOBIN 30.4 pg (27.0-33.0); MEAN CORPUSCULAR HGB CONC 32.8 g/dl (32.0-36.5); MEAN CORPUSCULAR VOLUME 92.6 fl (80.0-96.0); MONO # 0.3 10^3/uL (0.0-0.8); MONO % 5.1 % (2.0-8.0); NEUTROPHILS # 4.5 10^3/uL (1.5-8.5); NEUTROPHILS % 68.6 % (36.0-66.0); PLATELET COUNT, AUTOMATED 250 10^3/uL (150-450); RED BLOOD COUNT 2.83 10^6/uL (4.00-5.40); WHITE BLOOD COUNT 6.5 10^3/uL (4.0-10.0)
[2024-04-07 16:31] LABS: ALBUMIN 1.9 G/DL (3.2-5.2); ALKALINE PHOSPHATASE 154 U/L (35-104); ALT/SGPT 13 U/L (7.0-40); AST/SGOT 17 U/L (<34); BILIRUBIN,TOTAL < 0.2 MG/DL (0.3-1.2); BLOOD UREA NITROGEN 28 MG/DL (9-23); CALCIUM LEVEL 7.8 MG/DL (8.5-10.1); CARBON DIOXIDE LEVEL 22 MMOL/L (20-31); CHLORIDE LEVEL 110 MMOL/L (98-107); CREATININE FOR GFR 1.74 MG/DL (0.55-1.30); GLOMERULAR FILTRATION RATE 32.7 (>51); GLUCOSE, FASTING 182 MG/DL (60-100); POTASSIUM SERUM 4.1 MMOL/L (3.5-5.1); SODIUM LEVEL 142 MMOL/L (136-145); TOTAL PROTEIN 6.1 G/DL (5.7-8.2)
== END ==
LOC: M LAB REF 15:07
PROVIDERS: ATTEND Internal Medicine Infectious Disease
DX: R78.81 Bacteremia (principal); B95.61 Methicillin susceptible Staphylococcus aureus infection as the cause of diseases classified elsewhere; I33.0 Acute and subacute infective endocarditis; I76 Septic arterial embolism

== ENCOUNTER 2024-04-15 15:45 | Emergency (ER) | payer OTHER ==
[~2024-04-15] VITALS: Ht 165.1 cm; Wt 98.4 kg
[2024-04-15 17:39] LABS: APPEARANCE, URINE HAZY (CLEAR); BACTERIA, URINE AUTO NEGATIVE (NEGATIVE); BILIRUBIN, URINE AUTO NEGATIVE (NEGATIVE); BLOOD, URINE BLOOD 1+ (NEGATIVE); COLOR, URINE YELLOW (YELLOW); GLUCOSE, URINE (UA) AUTO 1+ mg/dL (NEGATIVE); KETONE, URINE AUTO NEGATIVE (NEGATIVE); LEUKOCYTE ESTERASE, URINE AUTO TRACE (NEGATIVE); NITRITE, URINE AUTO NEGATIVE (NEGATIVE); PROTEIN, URINE AUTO 3+ mg/dL (NEGATIVE); RBC, URINE AUTO 23 /HPF (0-3); SPECIFIC GRAVITY URINE AUTO 1.015 (1.002-1.035); SQUAMOUS EPITHELIAL CELL UR AU 11 /HPF (0-6); UROBILINOGEN, URINE AUTO 0.2 mg/dL (0.0-2.0); WBC, URINE AUTO 8 /HPF (0-3)
[2024-04-15 17:57] VITALS: BP 184/98; TEMP 98.3; O2SAT 97
== END 2024-04-15 21:20 | disposition left against medical advice (07) ==
LOC: M ED 15:45
DX: Z53.21 Procedure and treatment not carried out due to patient leaving prior to being seen by health care provider (principal)

== ENCOUNTER → 2024-04-22 | Outpatient (REF) | payer OTHER ==
[2024-04-22 18:25] LABS: BASO # 0.1 10^3/uL (0.0-0.2); BASO % 0.9 % (0.0-1.0); EOS # 0.3 10^3/uL (0.0-0.5); HEMATOCRIT 27.4 % (36.0-47.0); HEMOGLOBIN 9.2 g/dl (12.0-15.5); LYMPH % 22.6 % (24.0-44.0); MEAN CORPUSCULAR HGB CONC 33.6 g/dl (32.0-36.5); MEAN CORPUSCULAR VOLUME 92.3 fl (80.0-96.0); MONO # 0.5 10^3/uL (0.0-0.8); MONO % 5.3 % (2.0-8.0); NEUTROPHILS # 5.8 10^3/uL (1.5-8.5); NEUTROPHILS % 67.9 % (36.0-66.0); PLATELET COUNT, AUTOMATED 246 10^3/uL (150-450); RED BLOOD COUNT 2.97 10^6/uL (4.00-5.40); WHITE BLOOD COUNT 8.6 10^3/uL (4.0-10.0)
[2024-04-22 18:29] LABS: CALCIUM LEVEL 8.6 MG/DL (8.5-10.1); CHOLESTEROL RISK RATIO 2.66 (<5); CREATININE FOR GFR 2.21 MG/DL (0.55-1.30); GLOMERULAR FILTRATION RATE 24.8 (>51); HDL CHOLESTEROL 55.6 MG/DL (>40); NON-HDL-C 92.4 MG/DL; POTASSIUM SERUM 4.1 MMOL/L (3.5-5.1)
== END ==
LOC: M LAB REF 17:50
PROVIDERS: ATTEND Pediatrics
DX: I63.9 Cerebral infarction, unspecified (principal); N18.4 Chronic kidney disease, stage 4 (severe)

== ENCOUNTER → 2024-09-15 | Outpatient (CLI) | payer OTHER ==
[~2024-09-15] MED LIST changes: +ADVA1AER10 INH; +AMLO-751 PO; -AMLO10TA PO; +BASA100I SUBQ; -DEPA250T32 PO; +DIVA-65 PO; +GLIP-318 PO; -GLIP5TAB20 PO; +LEVO125T4 PO; +LISI40TA10 PO; -LISI40TA4 PO; +OMEP-173 PO
[2024-09-15 11:02] LABS: AMORPHOUS SEDIMENT SMALL (NEGATIVE); APPEARANCE, URINE HAZY (CLEAR); BACTERIA, URINE AUTO NEGATIVE (NEGATIVE); BILIRUBIN, URINE AUTO NEGATIVE (NEGATIVE); BLOOD, URINE BLOOD 1+ (NEGATIVE); GLUCOSE, URINE (UA) AUTO 2+ mg/dL (NEGATIVE); KETONE, URINE AUTO NEGATIVE (NEGATIVE); LEUKOCYTE ESTERASE, URINE AUTO 1+ (NEGATIVE); NITRITE, URINE AUTO NEGATIVE (NEGATIVE); PROTEIN, URINE AUTO 3+ mg/dL (NEGATIVE); RBC, URINE AUTO 7 /HPF (0-3); SPECIFIC GRAVITY URINE AUTO 1.013 (1.002-1.035); SQUAMOUS EPITHELIAL CELL UR AU 8 /HPF (0-6); UROBILINOGEN, URINE AUTO 0.2 mg/dL (0.0-2.0); WBC, URINE AUTO 27 /HPF (0-3)
[2024-09-15 11:06] LABS: BASO # 0.1 10^3/uL (0.0-0.2); BASO % 0.9 % (0.0-1.0); EOS # 0.3 10^3/uL (0.0-0.5); EOS % 4.1 % (0.0-3.0); LYMPH # 1.7 10^3/uL (1.5-5.0); LYMPH % 21.3 % (24.0-44.0); MONO # 0.4 10^3/uL (0.0-0.8); MONO % 4.7 % (2.0-8.0); NEUTROPHILS # 5.3 10^3/uL (1.5-8.5); NEUTROPHILS % 68.6 % (36.0-66.0); PLATELET COUNT, AUTOMATED 248 10^3/uL (150-450)
[2024-09-15 11:12] LABS: ERYTHROCYTE SEDIMENTATION RATE 50 mm/hr (0-30)
[2024-09-15 11:34] LABS: CREATININE, URINE 48.2 MG/DL
[2024-09-15 11:37] LABS: ALT/SGPT 16 U/L (7.0-40); AST/SGOT 18 U/L (<34); C REACTIVE PROTEIN QUANTITATIV < 0.50 MG/DL (<1.0); CALCIUM LEVEL 9.3 MG/DL (8.5-10.1); CARBON DIOXIDE LEVEL 21 MMOL/L (20-31); CHLORIDE LEVEL 111 MMOL/L (98-107); CHOLESTEROL LEVEL 169 MG/DL (<200); CHOLESTEROL RISK RATIO 3.00 (<5); CREATININE FOR GFR 3.03 MG/DL (0.55-1.30); GLOMERULAR FILTRATION RATE 17.8 (>51); LDL CHOLESTEROL 89.9 MG/DL (<100); NON-HDL-C 112.7 MG/DL; POTASSIUM SERUM 5.9 MMOL/L (3.5-5.1); SODIUM LEVEL 143 MMOL/L (136-145); TRIGLYCERIDES LEVEL 114 MG/DL (<150)
[2024-09-15 11:49] LABS: MALB URINE SIEMENS 2892.0 MG/L; MAU/CREAT RATIO 6000.0 MCG/MG (0.0-30.0)
[2024-09-15 16:01] LABS: RHEUMATOID FACTOR QUANT 11.8 IU/ML (<14)
== END ==
LOC: M RAD 09:43
PROVIDERS: ATTEND Student in an Organized Health Care Education/Training Program
DX: M47.816 Spondylosis without myelopathy or radiculopathy, lumbar region (principal); M79.606 Pain in leg, unspecified; I10 Essential (primary) hypertension

== ENCOUNTER 2024-09-17 15:48 | Inpatient (IN) | payer OTHER ==
[~2024-09-17] VITALS: Ht 165.1 cm; Wt 88.3 kg
[~2024-09-17 15:48] MED LIST changes: -ADVA1AER10 INH; -BASA100I SUBQ; -LEVO125T4 PO; -OMEP-173 PO
[2024-09-17 17:21] LABS: CALCIUM LEVEL 9.1 MG/DL (8.5-10.1); CARBON DIOXIDE LEVEL 21 MMOL/L (20-31); CHLORIDE LEVEL 110 MMOL/L (98-107); CREATININE FOR GFR 3.07 MG/DL (0.55-1.30); GLOMERULAR FILTRATION RATE 17.5 (>51); POTASSIUM SERUM 6.7 MMOL/L (3.5-5.1); SODIUM LEVEL 140 MMOL/L (136-145)
[2024-09-17 18:10] LABS: ALT/SGPT 15 U/L (7.0-40); AST/SGOT 18 U/L (<34); MAGNESIUM LEVEL 2.0 MG/DL (1.8-2.4)
[2024-09-17 18:18] LABS: CPK CREATINE PHOSPHOKINASE 185 U/L (34-145)
[2024-09-17] MEDS: CALCIUM GLUCONATE 1,000 MG/10 ML VIAL IV ONE (18:56)
[2024-09-17] MEDS: NS (Normal Saline) 0.9% 1,000 ML IV ONE (18:56)
[2024-09-17] MEDS: PATIROMER SORBITEX CALCIUM 8.4GM POWDER PACKET PO ONE (18:56)
[2024-09-17 18:57] LABS: BASO # 0.1 10^3/uL (0.0-0.2); BASO % 0.7 % (0.0-1.0); EOS # 0.3 10^3/uL (0.0-0.5); EOS % 3.4 % (0.0-3.0); LYMPH # 1.9 10^3/uL (1.5-5.0); LYMPH % 25.9 % (24.0-44.0); MONO # 0.3 10^3/uL (0.0-0.8); MONO % 4.5 % (2.0-8.0); NEUTROPHILS # 4.8 10^3/uL (1.5-8.5); NEUTROPHILS % 65.4 % (36.0-66.0); PLATELET COUNT, AUTOMATED 256 10^3/uL (150-450)
[2024-09-17] MEDS: DEXTROSE 50% 50 ML SYRINGE IV ONE (18:57)
[2024-09-17] MEDS: HumuLIN R (REGULAR) INSULIN (NovoLIN R) **100 U/ML** PER UNIT IV ONE (18:59)
[2024-09-17] MEDS ORDERED: OMEP-173 PO (19:10)
[2024-09-17] MEDS ORDERED: ADVA1AER10 INH (19:10)
[2024-09-17] MEDS ORDERED: INSUHUMDS SC (19:10)
[2024-09-17] MEDS ORDERED: LEVO125T4 PO (19:10)
[2024-09-17] MEDS ORDERED: BASA100I SUBQ (19:10)
[2024-09-17] MEDS ORDERED: HOME MED LIST COMPLETE! XX SCH (19:15)
[2024-09-17] MEDS: ADVAIR HFA 230/21 MCG INHALER INH SCH (20:00)
[2024-09-17] MEDS: D5W/0.45% SODIUM CHLORIDE 1,000 ML IV SCH (21:02)
[2024-09-17 21:07] LABS: APPEARANCE, URINE HAZY (CLEAR); BACTERIA, URINE AUTO NEGATIVE (NEGATIVE); BILIRUBIN, URINE AUTO NEGATIVE (NEGATIVE); BLOOD, URINE BLOOD 1+ (NEGATIVE); GLUCOSE, URINE (UA) AUTO 1+ mg/dL (NEGATIVE); KETONE, URINE AUTO NEGATIVE (NEGATIVE); LEUKOCYTE ESTERASE, URINE AUTO 1+ (NEGATIVE); NITRITE, URINE AUTO NEGATIVE (NEGATIVE); PROTEIN, URINE AUTO 3+ mg/dL (NEGATIVE); RBC, URINE AUTO 8 /HPF (0-3); SPECIFIC GRAVITY URINE AUTO 1.010 (1.002-1.035); SQUAMOUS EPITHELIAL CELL UR AU 4 /HPF (0-6); UROBILINOGEN, URINE AUTO 0.2 mg/dL (0.0-2.0); WBC, URINE AUTO 27 /HPF (0-3)
[2024-09-17 22:26] LABS: CALCIUM LEVEL 9.1 MG/DL (8.5-10.1); CARBON DIOXIDE LEVEL 21.0 MMOL/L (20-31); CHLORIDE LEVEL 112.0 MMOL/L (98-107); CREATININE FOR GFR 3.03 MG/DL (0.55-1.30); GLOMERULAR FILTRATION RATE 17.8 (>51); POTASSIUM SERUM 6.5 MMOL/L (3.5-5.1); SODIUM LEVEL 141.0 MMOL/L (136-145)
[2024-09-17] MEDS ORDERED: ALBUTEROL 90 MCG/ACT 8 GM HFA INHALER INH PRN (22:40)
[2024-09-17] MEDS ORDERED: GLUCAGON INJ 1 MG VIAL SC PRN (22:40)
[2024-09-17] MEDS ORDERED: GLUCOSE 4 GM CHEW PO PRN (22:40)
[2024-09-17] MEDS ORDERED: DEXTROSE 50% 50 ML SYRINGE IV PRN (22:40)
[2024-09-17] MEDS ORDERED: FLUTICASONE PROPIONATE 0.05% NASAL SPRAY 16 GM PRN (22:40)
[2024-09-17] MEDS ORDERED: ALBUTEROL SULFATE 2.5 MG/0.5 ML INH CONCENTRATE NEB SOLN INH PRN (22:40)
[2024-09-17] MEDS: traZODone 100 MG TAB PO SCH (23:50)
[2024-09-17] MEDS: ALPRAZolam 0.5 MG TAB PO SCH (23:50)
[2024-09-17] MEDS: LanTUS (INSULIN GLARGINE INJ) 1 UNITS/0.01 ML SC SCH (23:50)
[2024-09-18] VITALS (8 sets, daily range): BP systolic 129–188; BP diastolic 71–98; TEMP 97.4–98.2; O2SAT 94–100
[2024-09-18] MEDS ORDERED: NICOTINE POLACRILEX 2 MG GUM PO PRN (01:05)
[2024-09-18] MEDS ORDERED: NICOTINE 7 MG/24 HR TRANSDERMAL TD PRN (01:05)
[2024-09-18 02:54] LABS: CALCIUM LEVEL 9.2 MG/DL (8.5-10.1); CARBON DIOXIDE LEVEL 21.0 MMOL/L (20-31); CHLORIDE LEVEL 111.0 MMOL/L (98-107); CREATININE FOR GFR 3.0 MG/DL (0.55-1.30); GLOMERULAR FILTRATION RATE 18.0 (>51); POTASSIUM SERUM 6.0 MMOL/L (3.5-5.1); SODIUM LEVEL 140.0 MMOL/L (136-145)
[2024-09-18] MEDS: LABETALOL 200 MG TAB PO PRN (03:27)
[2024-09-18] MEDS: ACETAMINOPHEN 325 MG TAB PO PRN (03:31)
[2024-09-18] MEDS: LEVOTHYROXINE 125 MCG TABLET (0.125 MG) PO SCH (05:54)
[2024-09-18 06:25] LABS: PLATELET COUNT, AUTOMATED 235 10^3/uL (150-450)
[2024-09-18 06:46] LABS: CALCIUM LEVEL 9.1 MG/DL (8.5-10.1); CARBON DIOXIDE LEVEL 20.0 MMOL/L (20-31); CHLORIDE LEVEL 111.0 MMOL/L (98-107); CREATININE FOR GFR 2.96 MG/DL (0.55-1.30); GLOMERULAR FILTRATION RATE 18.3 (>51); POTASSIUM SERUM 5.3 MMOL/L (3.5-5.1); SODIUM LEVEL 140.0 MMOL/L (136-145)
[2024-09-18] MEDS: OMEPRAZOLE 20MG CAP PO SCH (08:31)
[2024-09-18] MEDS: ASPIRIN 81 MG ENTERIC TABLET PO SCH (08:31)
[2024-09-18] MEDS: ATORVASTATIN 20 MG TAB PO SCH (08:31)
[2024-09-18] MEDS: SERTRALINE HCL 50 MG TAB PO SCH (08:31)
[2024-09-18] MEDS: amLODIPine 10 MG TAB PO SCH (08:34)
[2024-09-18] MEDS: INSULIN LISPRO (NovoLOG) PER UNIT SC SCH ×2 (08:35→20:37)
[2024-09-18] MEDS: PATIROMER SORBITEX CALCIUM 8.4GM POWDER PACKET PO SCH (08:35)
[2024-09-18 12:41] LABS: CALCIUM LEVEL 8.8 MG/DL (8.5-10.1); CARBON DIOXIDE LEVEL 20.0 MMOL/L (20-31); CHLORIDE LEVEL 110.0 MMOL/L (98-107); CREATININE FOR GFR 2.92 MG/DL (0.55-1.30); GLOMERULAR FILTRATION RATE 18.6 (>51); POTASSIUM SERUM 5.4 MMOL/L (3.5-5.1); SODIUM LEVEL 137.0 MMOL/L (136-145)
[2024-09-18] MEDS: SODIUM BICARBONATE 325 MG TAB PO SCH (15:45)
[2024-09-18 18:54] LABS: CALCIUM LEVEL 8.5 MG/DL (8.5-10.1); CARBON DIOXIDE LEVEL 18.0 MMOL/L (20-31); CHLORIDE LEVEL 110.0 MMOL/L (98-107); CREATININE FOR GFR 2.99 MG/DL (0.55-1.30); GLOMERULAR FILTRATION RATE 18.1 (>51); POTASSIUM SERUM 5.5 MMOL/L (3.5-5.1); SODIUM LEVEL 138.0 MMOL/L (136-145)
[2024-09-19] VITALS (7 sets, daily range): BP systolic 150–172; BP diastolic 79–98; TEMP 97.5–97.9; O2SAT 95–98
[2024-09-19 00:50] LABS: CALCIUM LEVEL 8.4 MG/DL (8.5-10.1); CARBON DIOXIDE LEVEL 20.0 MMOL/L (20-31); CHLORIDE LEVEL 112.0 MMOL/L (98-107); CREATININE FOR GFR 3.31 MG/DL (0.55-1.30); GLOMERULAR FILTRATION RATE 16.0 (>51); POTASSIUM SERUM 5.5 MMOL/L (3.5-5.1); SODIUM LEVEL 142.0 MMOL/L (136-145)
[2024-09-19 05:59] LABS: PLATELET COUNT, AUTOMATED 234 10^3/uL (150-450)
[2024-09-19 06:34] LABS: CALCIUM LEVEL 9.1 MG/DL (8.5-10.1); CARBON DIOXIDE LEVEL 19.0 MMOL/L (20-31); CHLORIDE LEVEL 111.0 MMOL/L (98-107); CREATININE FOR GFR 3.2 MG/DL (0.55-1.30); GLOMERULAR FILTRATION RATE 16.7 (>51); IRON (FE) 46.0 UG/DL (50-170); PERCENT SATURATION 21.0 % (13.2-45.0); PHOSPHORUS LEVEL 5.3 MG/DL (2.5-4.9); POTASSIUM SERUM 5.3 MMOL/L (3.5-5.1); SODIUM LEVEL 144.0 MMOL/L (136-145)
[2024-09-19] MEDS: CHLORTHALIDONE 25 MG TAB PO SCH (09:00)
[2024-09-19 10:07] LABS: ESTIMATED AVERAGE GLUCOSE 137.0 MG/DL (60-110)
[2024-09-19] MEDS: FERRIC CARBOXYMALTOSE INJ 750 MG, VIAL MATE ADAPTER 1 EACH in NS 100 ML IV ONE (13:08)
[2024-09-19 13:15] LABS: CALCIUM LEVEL 8.6 MG/DL (8.5-10.1); CARBON DIOXIDE LEVEL 20.0 MMOL/L (20-31); CHLORIDE LEVEL 111.0 MMOL/L (98-107); CREATININE FOR GFR 3.14 MG/DL (0.55-1.30); GLOMERULAR FILTRATION RATE 17.1 (>51); POTASSIUM SERUM 5.4 MMOL/L (3.5-5.1); SODIUM LEVEL 139.0 MMOL/L (136-145)
[2024-09-19 19:04] LABS: CALCIUM LEVEL 8.7 MG/DL (8.5-10.1); CARBON DIOXIDE LEVEL 19.0 MMOL/L (20-31); CHLORIDE LEVEL 110.0 MMOL/L (98-107); CREATININE FOR GFR 3.22 MG/DL (0.55-1.30); GLOMERULAR FILTRATION RATE 16.6 (>51); POTASSIUM SERUM 5.6 MMOL/L (3.5-5.1); SODIUM LEVEL 140.0 MMOL/L (136-145)
[2024-09-19] MEDS: LABETALOL 100 MG TAB PO SCH (21:54)
[2024-09-19] MEDS: SODIUM BICARBONATE 325 MG TAB PO SCH (21:54)
[2024-09-20] VITALS (7 sets, daily range): BP systolic 148–174; BP diastolic 80–98; TEMP 97.5–98.1; O2SAT 95–98
[2024-09-20 00:50] LABS: CALCIUM LEVEL 8.6 MG/DL (8.5-10.1); CARBON DIOXIDE LEVEL 20.0 MMOL/L (20-31); CHLORIDE LEVEL 110.0 MMOL/L (98-107); CREATININE FOR GFR 3.18 MG/DL (0.55-1.30); GLOMERULAR FILTRATION RATE 16.8 (>51); POTASSIUM SERUM 5.4 MMOL/L (3.5-5.1); SODIUM LEVEL 142.0 MMOL/L (136-145)
[2024-09-20 06:11] LABS: PLATELET COUNT, AUTOMATED 214 10^3/uL (150-450)
[2024-09-20] MEDS: PATIROMER SORBITEX CALCIUM 8.4GM POWDER PACKET PO SCH (12:23)
[2024-09-21] MEDS ORDERED: LABETALOL 100 MG TAB PO SCH
[2024-09-21] MEDS ORDERED: SODIUM BICARBONATE 325 MG TAB PO SCH
[2024-09-21 04:06] VITALS: BP 152/88; TEMP 97.7; O2SAT 93
[2024-09-21 06:41] LABS: PLATELET COUNT, AUTOMATED 222 10^3/uL (150-450)
[2024-09-21 07:09] LABS: CALCIUM LEVEL 8.9 MG/DL (8.5-10.1); CARBON DIOXIDE LEVEL 20.0 MMOL/L (20-31); CHLORIDE LEVEL 111.0 MMOL/L (98-107); CREATININE FOR GFR 3.04 MG/DL (0.55-1.30); GLOMERULAR FILTRATION RATE 17.7 (>51); POTASSIUM SERUM 4.8 MMOL/L (3.5-5.1); SODIUM LEVEL 143.0 MMOL/L (136-145)
[2024-09-21 08:23] VITALS: BP 150/88
[2024-09-21 08:30] VITALS: BP 150/88; TEMP 97.1; O2SAT 98
[2024-09-21] MEDS ORDERED: SODI325T9 PO (10:55)
[2024-09-21] MEDS ORDERED: VELT1POW PO (10:55)
[2024-09-21] MEDS ORDERED: LABE100T6 PO (10:55)
[2024-09-21] MEDS ORDERED: CHLO25TA PO (10:55)
[2024-09-21 12:46] VITALS: BP 160/90
[2024-09-21] MEDS ORDERED: LABETALOL 100 MG TAB PO ONE (13:10)
[2024-09-21] MEDS ORDERED: SODIUM BICARBONATE 325 MG TAB PO ONE (13:10)
== END 2024-09-21 15:25 | disposition home or self-care (01) | DRG 425 ==
LOC: M ED 15:48 → M ED INP 09-18 00:38 → M MSPAV 09-18 02:03
PROVIDERS: ADMIT Student in an Organized Health Care Education/Training Program; ATTEND Family Medicine
DX: E87.5 Hyperkalemia (principal); N18.5 Chronic kidney disease, stage 5; E87.20 Acidosis, unspecified; E11.22 Type 2 diabetes mellitus with diabetic chronic kidney disease; I27.20 Pulmonary hypertension, unspecified; E11.40 Type 2 diabetes mellitus with diabetic neuropathy, unspecified; E21.0 Primary hyperparathyroidism; I25.10 Atherosclerotic heart disease of native coronary artery without angina pectoris; F41.9 Anxiety disorder, unspecified; F32.A Depression, unspecified; J44.9 Chronic obstructive pulmonary disease, unspecified; J45.909 Unspecified asthma, uncomplicated; M79.89 Other specified soft tissue disorders; E03.9 Hypothyroidism, unspecified; D64.9 Anemia, unspecified; G47.00 Insomnia, unspecified; K21.9 Gastro-esophageal reflux disease without esophagitis; I12.0 Hypertensive chronic kidney disease with stage 5 chronic kidney disease or end stage renal disease; Z86.73 Personal history of transient ischemic attack (TIA), and cerebral infarction without residual deficits; G43.909 Migraine, unspecified, not intractable, without status migrainosus; Z90.49 Acquired absence of other specified parts of digestive tract; Z98.49 Cataract extraction status, unspecified eye; F17.210 Nicotine dependence, cigarettes, uncomplicated; Z79.4 Long term (current) use of insulin; Z79.890 Hormone replacement therapy; Z79.899 Other long term (current) drug therapy

== ENCOUNTER → 2024-12-24 | Outpatient (CLI) | payer OTHER ==
[~2024-12-24] MED LIST changes: +ADVA1AER10 INH; +BASA100I SUBQ; +CHLO25TA PO; +LABE100T6 PO; +LEVO125T4 PO; +OMEP-173 PO; +SODI325T9 PO; +VELT1POW PO; -VITA500T17 PO; +VITA500T8 PO
== END ==
LOC: M RAD 13:04
PROVIDERS: ATTEND Internal Medicine Nephrology
DX: N18.4 Chronic kidney disease, stage 4 (severe) (principal)